=== PATIENT | female | born 1985 | race Caucasian/White ===

== ENCOUNTER 2017-07-11 17:13 | Emergency (ER) | payer SELFPAY ==
--- OUTSIDE RECORDS SUMMARY | 2017-07-11 17:15 | XMS REPORT ---
:1985 Author Organization [facility] Address Unavailable , Allergies, Adverse Reactions, Alerts Allergy Name Reaction Description Start Date Severity Status Provider No Known Allergies Gina Reed [employer] Conditions or Problems Problem Name Problem Onset Status Entry Provider Comment Standard Annotate Code Date Date Description Bacterial 616.10 Active Kim Vaginitis and vaginosis 06/10 06/10 Mony vulvovaginitis, unspecified Elevated 790.4 Active Kim Nonspecific transaminases 06/08 06/08 Mony elevation of MD levels of transaminase or lactic acid dehydrogenase [LDH] Breast lump or 611.72 Active Kim Lump or mass in mass, right 06/03 06/03 Mony breast Caries, dental 521.00 Active Kim Dental caries, 06/03 06/03 Mony unspecified Chronic low 724.2 Active Kim Lumbago back pain 06/03 06/03 Mony STONE Depression / 300.4 Active Kim Dysthymic disorder anxiety 06/03 06/03 Mony STONE GERD 530.81 Active Kim Esophageal reflux 06/03 06/03 Mony STONE Hx of 305.90 Active Kim Other, mixed, or substance 06/03 06/03 Mony unspecified drug abuse abuse, unspecified use Hypertriglycer 272.1 Active Kim Pure idemia 06/03 06/08 Mony hyperglyceridemia Insomnia 780.52 Active Kim Insomnia, 06/03 06/03 Mony unspecified Myopia, 367.1 Active Kim Myopia bilateral 06/03 06/03 Mony STONE Nausea and 787.01 Active Kim Nausea with vomiting 06/03 06/03 Mony vomiting Obesity Active Kim Obesity, 06/03 06/03 Mony unspecified Psoriasis 696.1 Active Kim Other psoriasis diffuse 06/03 06/03 Mony STONE Vitamin D 268.9 Active Kim Unspecified deficiency 06/03 06/08 Mony vitamin D MD deficiency BMI 32.0-32.9 Inactive Kim Syeks MD Health maintenance ICD-V70 Inactive Kim Sykes exam .0 MD Hx of abnormal ICD-V13 Inactive Kim Sykes 06/08 cervical .29 MD Papanicolaou smear Menorrhagia ICD-626 Inactive Kim Sykes .2 MD Screening for ICD-V77 Inactive Kim Sykes 06/08 diabetes mellitus .1 Screening for V77.91 Inactive Kim Sykes Screening for lipid disorder MD lipoid disorders Screening for TB ICD-V74.1 Inactive Kim Sykes Screening for V77.99 Inactive Kim Sykes Screening for vitamin D MD other and deficiency unspecified endocrine, nutritional, metabolic, and immunity disorders Std screening ICD-V74.5 Inactive Kim Sykes MD Vaccination ICD-V05.9 Inactive Kim Sykes MD BMI 32.0-32.9 Resolved Kim Sykes Body Mass Index 32.0-32.9, adult Health V70.0 Resolved Kim Sykes Routine general maintenance exam medical examination at a health care facility Hx of abnormal V13.2 Resolved Kim Sykes Personal history cervical 9 MD of other genital Papanicolaou system and smear obstetric disorders Menorrhagia 626.2 Resolved Kim Sykes Excessive or MD frequent menstruation Screening for V77.1 Resolved Kim Sykes Screening for diabetes mellitus diabetes mellitus Screening for TB V74.1 Resolved Kim Sykes Screening examination for pulmonary tuberculosis Std screening V74.5 Resolved Kim Sykes Screening examination for venereal disease Vaccination V05.9 Resolved Kim Sykes Need for MD prophylactic vaccination and inoculation against unspecified single disease Medication List Medication Instructions Start Stop Generic NDC Status Provider Patient Date Date Name Instruction FLAGYL 500 1 tab by METRONIDAZOLE 10575467593 Active Kim Active MG ORAL mouth twice a Mony TABLET day for 7 MD days FISH OIL 2 by mouth OMEGA-3 FATTY 40128593486 Active Kim Active 1000 MG two times a ACIDS Mony ORAL day with MD CAPSULE meals VITAMIN D2 take 1 tablet ERGOCALCIFEROL 75768934558 Active Kim Active 2000 UNIT By Mouth Mony ORAL daily MD TABLET BUSPIRONE 1 by mouth BUSPIRONE HCL 72435009675 Active Kim Active HCL 10 MG twice a day Mony ORAL MD TABLET COLACE 100 1 by mouth DOCUSATE SODIUM 01148911187 Active Kim Active MG ORAL twice a day Mony CAPSULE for MD constipation REMERON 15 1 by mouth MIRTAZAPINE 14050895252 Active Kim Active MG ORAL nightly at Mony TABLET bedtime ZANTAC 150 1 by mouth RANITIDINE HCL 81641191943 Active Kim Active MG ORAL twice a day Mony TABLET for heartburn Advance Directives Directive Description Start Date DISCUSSED - NO DECISION MADE Immunizations Vaccine Administration Date Value Standard Description Tetanus toxoid, reduced given tetanus toxoid, reduced diphtheria toxoid and diphtheria toxoid, and acellular Pertussis vaccine, acellular pertussis vaccine, absorbed (TdaP) given adsorbed Vital Signs Date Name Value Unit Range Description blood pressure, diastolic 73 mm[Hg] BP jane blood pressure, systolic 112 mm[Hg] BP sys height E&M 64 [in_us] Bdy height pulse rate E&M 92 /min Heart rate temperature E&M 98.3 [degF] Body temperature weight E&M 186 [lb_av] Weight Measured Diagnostic Results Date Name Value Unit Range Description Lab Report: CBC With Differential/Platelet, Comp. Metabolic Panel (14), ... - Serology hepatitis C antibody, serum <0.1 0.0-0.9 Office Visit: Annual / Family Planning Female - Urinalysis pH, urine, semiquantitative 8.5 Lab Report: CBC With Differential/Platelet, Comp. Metabolic Panel (14), ... - Hematology lymphocyte count, blood, automated 1.8 X10E3/UL 10*3/mm3 0.7- 3.1 Office Visit: Annual / Family Planning Female - Urinalysis bilirubin, urine 1+ Lab Report: CBC With Differential/Platelet, Comp. Metabolic Panel (14), ... - Chemistry urea nitrogen, blood 14 mg/dL 6-20 creatinine, serum 0.56 mg/dL 0.57-1.00 chloride, serum 107 mmol/L 96-106 Lab Report: CBC With Differential/Platelet, Comp. Metabolic Panel (14), ... - Hematology mean corpuscular volume, RBC 94 fL 79-97 Lab Report: Lipid Panel, Cardiovascular Report - Chemistry triglyceride, serum, fasting 215 mg/dL 0-149 Lab Report: CBC With Differential/Platelet, Comp. Metabolic Panel (14), ... - Hematology erythrocyte (RBC) count 4.30 X10E6/UL 10*6/mm3 3.77-5.28 Lab Report: CBC With Differential/Platelet, Comp. Metabolic Panel (14), ... - Chemistry Estimated Glomerular Filtration Rate (calc) 124 mL/min/1.73m2 & gt;59 Office Visit: Annual / Family Planning Female - Urinalysis appearance, urine clear Lab Report: CBC With Differential/Platelet, Comp. Metabolic Panel (14), ... - Hematology platelet count 256 X10E3/UL 10*3/mm3 258-771 3198/03/21 red blood cell distribution width 13.1 % 12.3-15.4 Lab Report: CBC With Differential/Platelet, Comp. Metabolic Panel (14), ... - Chemistry protein, total, serum 7.5 g/dL 6.0-8.5 Lab Report: Lipid Panel, Cardiovascular Report - Chemistry HDL cholesterol, serum 48 mg/dL >39 Office Visit: Annual / Family Planning Female - Urinalysis glucose, urine, semiquantitative negative Lab Report: CBC With Differential/Platelet, Comp. Metabolic Panel (14), ... - Chemistry albumin/globulin ratio, serum 1.4 1.2-2.2 Lab Report: CBC With Differential/Platelet, Comp. Metabolic Panel (14), ... - Hematology eosinophils as percent of blood leukocytes 1 % Lab Report: CBC With Differential/Platelet, Comp. Metabolic Panel (14), ... - Chemistry Absolute Neutrophils 4.5 X10E3/UL 10*3/uL 1.4-7.0 Lab Report: CBC With Differential/Platelet, Comp. Metabolic Panel (14), ... - Hematology basophil count, absolute 0.0 x10E3/uL 0.0-0.2 Lab Report: CBC With Differential/Platelet, Comp. Metabolic Panel (14), ... - Chemistry hepatitis B surface antigen Negative Negative alanine aminotransferase (SGPT), serum 59 U/L 0-32 Lab Report: Lipid Panel, Cardiovascular Report - Chemistry LDL cholesterol, serum 99 mg/dL 0-99 Office Visit: Annual / Family Planning Female - Urinalysis nitrite, urine, semiquantitative negative Lab Report: CBC With Differential/Platelet, Comp. Metabolic Panel (14), ... - Hematology monocytes as percent of blood leukocytes 7 % Lab Report: Lipid Panel, Cardiovascular Report - Chemistry cholesterol, serum 190 mg/dL 100-199 Lab Report: CBC With Differential/Platelet, Comp. Metabolic Panel (14), ... - Hematology mean corpuscular hemoglobin concentration, RBC 32.8 G/DL % 31.5- 35.7 Office Visit: Annual / Family Planning Female - Urinalysis leukocyte esterase, urine, by dipstick trace Lab Report: CBC With Differential/Platelet, Comp. Metabolic Panel (14), ... - Hematology hemoglobin, blood 13.3 g/dL 11.1-15.9 leukocyte count, blood 6.8 X10E3/UL 10*3/mm3 3.4-10.8 Quantiferon Gold TB blood test for Negative Negative tuberculosis screening Office Visit: Annual / Family Planning Female - Urinalysis protein, urine, semiquantitative (dipstick) trace Lab Report: CBC With Differential/Platelet, Comp. Metabolic Panel (14), ... - Hematology hematocrit, blood 40.5 % 34.0-46.6 Lab Report: CBC With Differential/Platelet, Comp. Metabolic Panel (14), ... - Chemistry globulin, serum 3.1 1.5-4.5 vitamin D 25-hydroxy, serum 22.5 ng/mL 30.0-100.0 thyroid stimulating hormone, serum 1.350 u[iU]/mL 0.450-4.500 albumin, serum 4.4 g/dL 3.5-5.5 Lab Report: Lipid Panel, Cardiovascular Report - Chemistry very low density lipoproteins 43 mg/dL 5-40 Office Visit: Annual / Family Planning Female - Urinalysis urobilinogen, urine, semiquantitative (dipstick) negative Lab Report: CBC With Differential/Platelet, Comp. Metabolic Panel (14), ... - Chemistry calcium, serum 9.7 mg/dL 8.7-10.2 Lab Report: CBC With Differential/Platelet, Comp. Metabolic Panel (14), ... - Hematology basophils as percent of blood leukocytes 0 % monocyte count, blood, automated 0.4 X10E3/UL 10*3/uL 0.1-0.9 Lab Report: CBC With Differential/Platelet, Comp. Metabolic Panel (14), ... - Chemistry immature granulocytes, percentage of total cells, blood 0 % urea nitrogen/creatinine ratio, serum 25 8-20 Lab Report: CBC With Differential/Platelet, Comp. Metabolic Panel (14), ... - Genetics/fertility eGFR if 143 mL/min/1.73m2 >59 Lab Report: CBC With Differential/Platelet, Comp. Metabolic Panel (14), ... - Hematology lymphocytes as percent of blood leukocytes 27 % Lab Report: CBC With Differential/Platelet, Comp. Metabolic Panel (14), ... - Chemistry carbon dioxide, venous blood 23 mmol/L 18-29 Lab Report: CBC With Differential/Platelet, Comp. Metabolic Panel (14), ... - Serology rapid plasma reagin antibody, serum Non Reactive Non Reactive Lab Report: Ct, Ng, Trich vag by AIDEN - Lab chlamydia DNA probe Negative Negative Lab Report: Ct, Ng, Trich vag by AIDEN - Microbiology Neisseria gonorrhoeae DNA probe Negative Negative Lab Report: CBC With Differential/Platelet, Comp. Metabolic Panel (14), ... - Chemistry sodium, serum 145 mmol/L 952-957 1674/03/21 hemoglobin A1C, blood, as % of total hemoglobin 5.3 % 4.8-5.6 Office Visit: Annual / Family Planning Female - Chemistry beta HCG, urine, semiquantitative negative Lab Report: CBC With Differential/Platelet, Comp. Metabolic Panel (14), ... - Chemistry alkaline phosphatase, serum 79 U/L 39-117 Office Visit: Annual / Family Planning Female - Urinalysis ketones, urine, by test strip negative Lab Report: CBC With Differential/Platelet, Comp. Metabolic Panel (14), ... - Hematology Eosinophil Absolute Count 0.1 X10E3/UL 10*3/uL 0.0-0.4 Office Visit: Annual / Family Planning Female - Urinalysis specific gravity, urine 1.010 Lab Report: CBC With Differential/Platelet, Comp. Metabolic Panel (14), ... - Hematology mean corpuscular hemoglobin, RBC 30.9 pg 26.6-33.0 Lab Report: CBC With Differential/Platelet, Comp. Metabolic Panel (14), ... - Chemistry bilirubin, serum, total 0.3 mg/dL 0.0-1.2 Lab Report: CBC With Differential/Platelet, Comp. Metabolic Panel (14), ... - Hematology neutrophils as percent of blood leukocytes 65 % Office Visit: Annual / Family Planning Female - Urinalysis blood in urine (hemoglobin) by dipstick negative Lab Report: CBC With Differential/Platelet, Comp. Metabolic Panel (14), ... - Chemistry potassium, serum 4.6 mmol/L 3.5-5.2 blood glucose, random 81 mg/dL 65-99 aspartate aminotransferase (SGOT), serum 63 U/L 0-40 Office Visit: Annual / Family Planning Female - Urinalysis urine color yellow Encounters Date Encounter Provider Code Facility New Patient Detailed - Kim Sykes MD [id number] [facility] 13:14:00 CDT 29078 Practice Procedures Code Procedure Name Date Entry Date Standard Description CPT-HE001 Health Education/Supportive 11:41:37 FISH TRAPPER Counseling CPT-HE001 Health Education/Supportive 10:01:26 FISH TRAPPER Counseling CPT-OR001 Outreach Services 12:16:34 CDT CPT-40800 TDAP 13:07:50 CDT
--- NOTE | 2017-07-11 18:28 | ER ---
Nurse's Notes [facility] Name: Renée Keita Age: 31 yrs Sex: Female : 1985 Arrival Date: 07/11/2017 Time: 17:16 Bed Treatment Private MD: None, None Diagnosis: Psoriasis, unspecified;Irritant contact dermatitis;Cellulitis, unspecified Presentation: 07/11 17:30 Presenting complaint: Patient states: Rash to RAC, chest. Pt airway patent, la1 respirations even and unlabored. Transition of care: patient was not received from another setting of care. Onset of symptoms was July 11, 2017. Initial Sepsis Screen: Does the patient meet any 2 criteria? No. Patient's initial sepsis screen is negative. Does the patient have a suspected source of infection? No. Patient's initial sepsis screen is negative. Care prior to arrival: None. 17:30 Method Of Arrival: Ambulatory la1 17:30 Acuity: KAMILA 5 la1 Triage Assessment: 17:44 General: Appears in no apparent distress. Behavior is calm, cooperative. la1 Historical: - Allergies: 17:31 No Known Allergies; la1 - PMHx: 17:31 None; la1 - Immunization history:: Adult Immunizations up to date. - Social history:: Smoking status: Patient/guardian denies using tobacco. Screenin:44 Abuse screen: Denies threats or abuse. Nutritional screening: No deficits noted. la1 Tuberculosis screening: No symptoms or risk factors identified. Fall Risk None identified. Assessment: 17:43 Reassessment: Patient is alert, oriented x 3, equal unlabored respirations, skin la1 warm/dry/pink. Pain: Denies pain. Respiratory: Airway is patent Respiratory effort is even, unlabored, Respiratory pattern is regular, symmetrical. GI: No signs and/or symptoms were reported involving the gastrointestinal system. Derm: Rash noted that is red, on right antecubital area. Vital Signs: 17:31 BP 115 / 65; Pulse 76; Resp 19; Temp 98.2; Pulse Ox 100% on R/A; Weight 90.72 kg; la1 Height 5 ft. 4 in. (162.56 cm) (R); 17:31 Body Mass Index 34.33 (90.72 kg, 162.56 cm) la1 ED Course: 17:16 Patient arrived in ED. mr 17:16 None, None is Private Physician. mr 17:31 Triage completed. la1 17:31 Arm band placed on left wrist. la1 17:43 Brant Luu, RN is Primary Nurse. la1 17:43 Dariel[facility]. snw 17:43 Sergey Daniels MD is Attending Physician. snw 17:44 Call light in reach. la1 17:44 No provider procedures requiring assistance completed. Patient did not have IV access la1 during this emergency room visit. Administered Medications: 18:33 Drug: Clindamycin 300 mg Route: PO; la1 18:33 Follow up: Response: Medication administered at discharge. la1 Outcome: 18:27 Discharge ordered by . snw 18:42 Discharged to home ambulatory. la1 18:42 Condition: stable 18:42 Discharge instructions given to patient, Instructed on discharge instructions, follow up and referral plans. medication usage, Demonstrated understanding of instructions, follow-up care, medications, Prescriptions given X 2. 18:43 Patient left the ED. la1 Signatures: Dariela Winston FNP-C EARLY CHILDHOOD TEACHER ASSISTANT-[facility] Milly Jones Brant Luu, RN RN la1
--- NOTE | 2017-07-11 18:28 | EDPHYS ---
Physician Documentation [facility] Name: Renée Keita Age: 31 yrs Sex: Female : 1985 Arrival Date: 07/11/2017 Time: 17:16 Bed Treatment Private MD: None, None ED Physician Sergey Daniels HPI: 07/11 18:55 This 31 yrs old Female presents to ER via Ambulatory with complaints of Rash. snw 18:55 The patient's rash thought to be caused by Dermatitis. The rash is located on the right snw antecubital area. The rash can be described as confluent, erythematous, raised. Onset: The symptoms/episode began/occurred suddenly, 2 day(s) ago, and became persistent spreading. Severity of symptoms: At their worst the symptoms were moderate. The patient has not experienced similar symptoms in the past. It is unknown whether or not the patient has recently seen a physician. hx of psoriasis, uses only baby lotion. Historical: - Allergies: 17:31 No Known Allergies; la1 - PMHx: 17:31 None; la1 - Immunization history:: Adult Immunizations up to date. - Social history:: Smoking status: Patient/guardian denies using tobacco. ROS: 18:55 Constitutional: Negative for fever, chills, and weight loss, Eyes: Negative for injury, snw pain, redness, and discharge, ENT: Negative for injury, pain, and discharge, Neck: Negative for injury, pain, and swelling, Cardiovascular: Negative for chest pain, palpitations, and edema, Respiratory: Negative for shortness of breath, cough, wheezing, and pleuritic chest pain, Abdomen/GI: Negative for abdominal pain, nausea, vomiting, diarrhea, and constipation, Back: Negative for injury and pain, : Negative for injury, bleeding, discharge, and swelling, MS/Extremity: Negative for injury and deformity, Neuro: Negative for headache, weakness, numbness, tingling, and seizure. 18:55 Skin: Positive for rash, of the right antecubital area. Exam: 18:24 Constitutional: This is a well developed, well nourished patient who is awake, alert, snw and in no acute distress. Head/Face: Normocephalic, atraumatic. Eyes: Pupils equal round and reactive to light, extra-ocular motions intact. Lids and lashes normal. Conjunctiva and sclera are non-icteric and not injected. Cornea within normal limits. Periorbital areas with no swelling, redness, or edema. ENT: Nares patent. No nasal discharge, no septal abnormalities noted. Tympanic membranes are normal and external auditory canals are clear. Oropharynx with no redness, swelling, or masses, exudates, or evidence of obstruction, uvula midline. Mucous membranes moist. Neck: Trachea midline, no thyromegaly or masses palpated, and no cervical lymphadenopathy. Supple, full range of motion without nuchal rigidity, or vertebral point tenderness. No Meningismus. Chest/axilla: Normal chest wall appearance and motion. Nontender with no deformity. No lesions are appreciated. Cardiovascular: Regular rate and rhythm with a normal S1 and S2. No gallops, murmurs, or rubs. Normal PMI, no JVD. No pulse deficits. Respiratory: Lungs have equal breath sounds bilaterally, clear to auscultation and percussion. No rales, rhonchi or wheezes noted. No increased work of breathing, no retractions or nasal flaring. Abdomen/GI: Soft, non-tender, with normal bowel sounds. No distension or tympany. No guarding or rebound. No evidence of tenderness throughout. Back: No spinal tenderness. No costovertebral tenderness. Full range of motion. MS/ Extremity: Pulses equal, no cyanosis. Neurovascular intact. Full, normal range of motion. Neuro: Awake and alert, GCS 15, oriented to person, place, time, and situation. Cranial nerves II-XII grossly intact. Motor strength 5/5 in all extremities. Sensory grossly intact. Cerebellar exam normal. Normal gait. 18:24 Skin: Appearance: psoriasis diffusely, erythematous cellulitic area to right ac space. Vital Signs: 17:31 BP 115 / 65; Pulse 76; Resp 19; Temp 98.2; Pulse Ox 100% on R/A; Weight 90.72 kg; la1 Height 5 ft. 4 in. (162.56 cm) (R); 17:31 Body Mass Index 34.33 (90.72 kg, 162.56 cm) la1 MDM: 17:51 Patient medically screened. [facility] 18:54 Data reviewed: vital signs, nurses notes. Data interpreted: Pulse oximetry: on room air snw is 100 %. Interpretation: normal. Counseling: I had a detailed discussion with the patient and/or guardian regarding: the historical points, exam findings, and any diagnostic results supporting the discharge/admit diagnosis, the need for outpatient follow up, to return to the emergency department if symptoms worsen or persist or if there are any questions or concerns that arise at home. Special discussion: Based on the history and exam findings, there is no indication for further emergent testing or inpatient evaluation. I discussed with the patient/guardian the need to see the broth setter for further evaluation of the symptoms. I discussed with the patient/guardian the need to see the primary care provider for further evaluation of the symptoms. Administered Medications: 18:33 Drug: Clindamycin 300 mg Route: PO; la1 18:33 Follow up: Response: Medication administered at discharge. la1 Disposition: 07/11/17 18:27 Discharged to Home. Impression: Psoriasis, unspecified, Irritant contact dermatitis, Cellulitis, unspecified. - Condition is Stable. - Discharge Instructions: Cellulitis, Contact Dermatitis, Psoriasis. - Prescriptions for Aquaphor - Apply to affected area 1 application by TOPICAL route 1-2 times daily; 50 gram. Clindamycin HCl 300 mg Oral Capsule - take 1 capsule by ORAL route every 8 hours for 10 days; 30 capsule. - Work release form, Medication Reconciliation Form, Thank You Letter, Antibiotic Education, Prescription Opioid Use form. - Follow up: Private Physician; When: 2 - 3 days; Reason: Recheck today's complaints, Continuance of care, Re-evaluation by your physician. Addendum: 07/13/2017 09:08 Co-signature as Attending Physician, Sergey Daniels MD I agree with the assessment and c lara plan of care. Signatures: Sergey Daniels MD MD cha Therrien, Shelly, CELL COVERER-C CELL COVERER-[facility] Brant Luu, RN RN la1
[2017-07-11] MEDS ORDERED: CLINDAMYCIN HCL 150 MG CAP ONE (18:31)
[2017-07-11 18:46] VITALS: BP 115/65; TEMP 98.2; O2SAT 100
== END 2017-07-11 18:43 | disposition home or self-care (01) ==
LOC: ER 17:13
DX: L40.9 Psoriasis, unspecified (principal); L24.9 Irritant contact dermatitis, unspecified cause; L03.90 Cellulitis, unspecified
CPT/HCPCS: 99283

== ENCOUNTER 2018-08-13 21:45 | Emergency (ER) | payer SELFPAY ==
--- OUTSIDE RECORDS SUMMARY | 2018-08-13 21:47 | XMS REPORT ---
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 Conditions or Problems Problem Name Problem Onset [...] D MD deficiency BMI 32.0-32.9 Inactive Kim Sykes MD Health maintenance ICD-V70 Inactive Kim Sykes [...] Instruction FLAGYL 500 1 tab by METRONIDAZOLE 05467599822 Active Kim Active MG ORAL mouth twice a Mony TABLET day for 7 MD days FISH OIL 2 by mouth OMEGA-3 FATTY 31256225489 Active Kim Active 1000 MG two times a ACIDS Mony ORAL day with MD CAPSULE meals VITAMIN D2 take 1 tablet ERGOCALCIFEROL 08586981999 Active Kim Active 2000 UNIT By Mouth Mony ORAL daily MD TABLET BUSPIRONE 1 by mouth BUSPIRONE HCL 29751562681 Active Kim Active HCL 10 MG twice a day Mony ORAL MD TABLET COLACE 100 1 by mouth DOCUSATE SODIUM 50650172938 Active Kim Active MG ORAL twice a day Mony CAPSULE for MD constipation REMERON 15 1 by mouth MIRTAZAPINE 36445688496 Active Kim Active MG ORAL nightly at Mony TABLET bedtime ZANTAC 150 1 by mouth RANITIDINE HCL 61911111529 Active Kim Active MG ORAL twice a [...] Estimated Glomerular Filtration Rate (calc) 124 mL/min/1.73m2 > 59 Office Visit: Annual / Family Planning Female - Urinalysis appearance, urine clear Lab Report: CBC With Differential/Platelet, Comp. Metabolic Panel (14), ... - Hematology platelet count 256 X10E3/UL 10*3/mm3 967-393 7441/03/21 red blood cell distribution width 13.1 % [...] ... - Chemistry sodium, serum 145 mmol/L 584-620 0761/03/21 hemoglobin A1C, blood, as % of total [...] New Patient Detailed - Kim Sykes MD CPT-18596 [facility] 13:14:00 CDT 38942 Practice Procedures Code Procedure Name Date Entry Date Standard Description CPT-HE001 Health Education/Supportive 11:41:37 PARIMUTUEL CASHIER Counseling CPT-HE001 Health Education/Supportive 10:01:26 PARIMUTUEL CASHIER Counseling CPT-OR001 Outreach Services 12:16:34 CDT CPT-86349 TDAP 13:07:50 CDT
--- OUTSIDE RECORDS SUMMARY | 2018-08-13 21:47 | XMS REPORT ---
:1985 [facility] Address [address] [place] [address] Dr. Goldstein[address] [place] [id number] Care Team Providers Name Role Phone Unavailable Unavailable Unavailable Problems This patient has no known problems. Allergies, Adverse Reactions, Alerts This patient has no known allergies or adverse reactions. Medications This patient has no known medications.
--- OUTSIDE RECORDS SUMMARY | 2018-08-13 21:47 | XMS REPORT | Continuity of Care Document ---
:1985 Author Organization Interface Problems Problem Status Onset Date Classification Date Comments Source Reported Medications Medication Details Route Status Patient Ordering Order Source Instructions Provider Date Allergies, Adverse Reactions, Alerts Substance Category Reaction Severity Reaction Status Date Comments Source type Reported Immunizations Immunization Date Given Site Status Last Updated Comments Source Results Order Results Value Reference Date Interpretation Comments Source Name Range Vital Signs Vital Sign Value Date Comments Source Encounters Location Location Encounter Encounter Reason Attending ADM DC Status Source Details Type Number For Provider Date Date Visit Outpatient [id number] KELLI 04/14 [facility] Procedures Procedure Code Date Perfomer Comments Source
--- NOTE | 2018-08-13 23:03 | ER ---
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 its not hurting that much right now. pain is intermittent. Transition of care: patient was not received from another setting of care. Onset of symptoms was August 11, 2018. Risk Assessment: Do you want to hurt yourself or someone else? Patient reports no desire to harm self or others. Initial Sepsis Screen: Does the patient meet any 2 criteria? No. Patient's initial sepsis screen is negative. Does the patient have a suspected source of infection? No. Patient's initial sepsis screen is negative. Care prior to arrival: None. 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 - Social history:: Smoking status: Patient/guardian denies using tobacco, Patient/guardian denies using alcohol, street drugs, IV drugs. - Ebola Screening: : No symptoms or risks identified at this time. Screenin:26 Abuse screen: Denies threats or abuse. Denies injuries from another. Nutritional mg2 screening: No deficits noted. Tuberculosis screening: No symptoms or risk factors identified. Fall Risk Fall in past 12 months (25 points). Assessment: 23:25 General: Appears in no apparent distress. comfortable, Behavior is calm, cooperative. mg2 Pain: Complains of pain in right knee Pain does not radiate. Neuro: Level of Consciousness is awake, alert, obeys commands, Oriented to person, place, time, situation. Cardiovascular: Capillary refill < 3 seconds Patient's skin is warm and dry. Respiratory: Airway is patent Respiratory effort is even, unlabored, Respiratory pattern is regular, symmetrical. GI: No signs and/or symptoms were reported involving the gastrointestinal system. : No signs and/or symptoms were reported regarding the genitourinary system. EENT: No signs and/or symptoms were reported regarding the EENT system. Derm: Skin is intact, is healthy with good turgor, Skin is pink, warm \T\ dry. normal. Musculoskeletal: Reports pain in right knee. Vital Signs: 22:17 BP 116 / 79; Pulse 80; Resp 18; Temp 98.4; Pulse Ox 100% on R/A; Weight 90.72 kg; mg2 Height 5 ft. 4 in. (162.56 cm); Pain 1/10; 23:26 BP 117 / 71; Pulse 80; Resp 18; Temp 98.5; Pulse Ox 100% on R/A; Pain 0/10; mg2 22:17 Body Mass Index 34.33 (90.72 kg, 162.56 cm) mg2 ED Course: 21:49 Patient arrived in ED. ds1 22:05 [facility]iel[facility] Winston [facility]C [facility] snw 22:05 Ishan Tejeda MD is Attending Physician. snw 22:10 Travon Barrett, EVANGELINA is Primary Nurse. mg2 22:17 Triage completed. mg2 22:19 Arm band placed on. mg2 22:49 Knee Right 3 View XRAY In Process Unspecified. EDMS 23:27 Patient has correct armband on for positive identification. mg2 23:27 No provider procedures requiring assistance completed. Patient did not have IV access mg2 during this emergency room visit. 23:27 Jono wrap to right knee. mg2 Administered Medications: No medications were administered Outcome: 23:02 Discharge ordered by . snw 23:27 Discharged to home ambulatory. mg2 23:27 Condition: stable 23:27 Discharge instructions given to patient, Instructed on discharge instructions, follow up and referral plans. Demonstrated understanding of instructions, follow-up care, medications, Prescriptions given X 1. 23:28 Patient left the ED. mg2 Signatures: Dispatcher [employer] EDMS Dariela Winston FNP-C DIESEL RETROFIT INSTALLER-Csnw Ida Maldonado ds1 Travon Barrett, RN RN mg2
--- NOTE | 2018-08-13 23:03 | EDPHYS ---
Physician Documentation [facility] Name: Renée Keita Age: 32 yrs Sex: Female : 1985 Arrival Date: 08/13/2018 Time: 21:49 Bed 30 Private MD: ED Physician Ishan Tejeda HPI: 08/13 23:07 This 32 yrs old Female presents to ER via Ambulatory with complaints of Knee snw Pain. 23:07 The patient presents with a contusion, pain. The complaints affect the right knee. snw Context: The problem was sustained at work, resulted from slipped in grease at work, the patient can fully bear weight, the patient is able to ambulate. Onset: The symptoms/episode began/occurred suddenly, 3 day(s) ago, and became persistent. Associated signs and symptoms: The patient has no apparent associated signs or symptoms. Severity of symptoms: At their worst the symptoms were mild, moderate. The patient has not experienced similar symptoms in the past. It is unknown whether or not the patient has recently seen a physician. 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 - Social history:: Smoking status: Patient/guardian denies using tobacco, Patient/guardian denies using alcohol, street drugs, IV drugs. - Ebola Screening: : No symptoms or risks identified at this time. ROS: 23:00 Constitutional: Negative for fever, chills, and weight loss, Eyes: Negative for injury, snw pain, redness, and discharge, ENT: Negative for injury, pain, and discharge, Neck: Negative for injury, pain, and swelling, Cardiovascular: Negative for chest pain, palpitations, and edema, Respiratory: Negative for shortness of breath, cough, wheezing, and pleuritic chest pain, Abdomen/GI: Negative for abdominal pain, nausea, vomiting, diarrhea, and constipation, Back: Negative for injury and pain, : Negative for injury, bleeding, discharge, and swelling, MS/Extremity: Negative for injury and deformity, fell to right knee at work and needs to be checked prior to return Skin: Negative for injury, rash, and discoloration, Neuro: Negative for headache, weakness, numbness, tingling, and seizure. Exam: 22:58 Constitutional: This is a well developed, well nourished patient who is awake, alert, snw and in no acute distress. Head/Face: Normocephalic, atraumatic. Eyes: Pupils equal round and reactive to light, extra-ocular motions intact. Lids and lashes normal. Conjunctiva and sclera are non-icteric and not injected. Cornea within normal limits. Periorbital areas with no swelling, redness, or edema. ENT: Nares patent. No nasal discharge, no septal abnormalities noted. Tympanic membranes are normal and external auditory canals are clear. Oropharynx with no redness, swelling, or masses, exudates, or evidence of obstruction, uvula midline. Mucous membranes moist. Neck: Trachea midline, no thyromegaly or masses palpated, and no cervical lymphadenopathy. Supple, full range of motion without nuchal rigidity, or vertebral point tenderness. No Meningismus. Chest/axilla: Normal chest wall appearance and motion. Nontender with no deformity. No lesions are appreciated. Cardiovascular: Regular rate and rhythm with a normal S1 and S2. No gallops, murmurs, or rubs. Normal PMI, no JVD. No pulse deficits. Respiratory: Lungs have equal breath sounds bilaterally, clear to auscultation and percussion. No rales, rhonchi or wheezes noted. No increased work of breathing, no retractions or nasal flaring. Abdomen/GI: Soft, non-tender, with normal bowel sounds. No distension or tympany. No guarding or rebound. No evidence of tenderness throughout. Back: No spinal tenderness. No costovertebral tenderness. Full range of motion. Skin: Warm, dry with normal turgor. Normal color with no rashes, no lesions, and no evidence of cellulitis. Neuro: Awake and alert, GCS 15, oriented to person, place, time, and situation. Cranial nerves II-XII grossly intact. Motor strength 5/5 in all extremities. Sensory grossly intact. Cerebellar exam normal. Normal gait. Psych: Awake, alert, with orientation to person, place and time. Behavior, mood, and affect are within normal limits. 22:58 Skin: Warm, dry with normal turgor. Normal color with no rashes, + psoriasis, and no evidence of cellulitis. 22:58 Musculoskeletal/extremity: Extremities: grossly normal except: noted in the right knee: contusion, tenderness. Vital Signs: 22:17 BP 116 / 79; Pulse 80; Resp 18; Temp 98.4; Pulse Ox 100% on R/A; Weight 90.72 kg; mg2 Height 5 ft. 4 in. (162.56 cm); Pain 1/10; 23:26 BP 117 / 71; Pulse 80; Resp 18; Temp 98.5; Pulse Ox 100% on R/A; Pain 0/10; mg2 22:17 Body Mass Index 34.33 (90.72 kg, 162.56 cm) mg2 MDM: 22:17 Patient medically screened. snw 23:07 Data reviewed: vital signs, nurses notes. Data interpreted: Pulse oximetry: on room air snw is 100 %. Interpretation: normal. Counseling: I had a detailed discussion with the patient and/or guardian regarding: the historical points, exam findings, and any diagnostic results supporting the discharge/admit diagnosis, radiology results, the need for outpatient follow up, to return to the emergency department if symptoms worsen or persist or if there are any questions or concerns that arise at home. Special discussion: Based on the history and exam findings, there is no indication for further emergent testing or inpatient evaluation. I discussed with the patient/guardian the need to see the primary care provider for further evaluation of the symptoms. 08/13 22:22 Order name: Knee Right 3 View XRAY snw 08/13 23:07 Order name: Jono wrap-joint; Complete Time: 23:25 snw Administered Medications: No medications were administered Disposition: 08/13/18 23:02 Discharged to Home. Impression: Fall on same level from slipping, tripping and stumbling, Contusion of right knee. - Condition is Stable. - Discharge Instructions: Elastic Bandage and RICE, Contusion, Fall Prevention in the Home, RICE for Routine Care of Injuries, Knee Pain, Cryotherapy. - Prescriptions for Motrin IB 200 mg Oral Tablet - take 2 tablet by ORAL route every 6 hours As needed as needed with food; 40 tablet. - Work release form, Medication Reconciliation Form, Thank You Letter, Antibiotic Education, Prescription Opioid Use form. - Follow up: Private Physician; When: 2 - 3 days; Reason: Recheck today's complaints, Continuance of care, Re-evaluation by your physician. Follow up: Emergency Department; When: As needed; Reason: Worsening of condition. Signatures: Dispatcher [employer] EDMS Dariela Winston, DANNY-C LIGHT CLEANER-Csnw Travon Barrett RN RN mg2 Corrections: (The following items were deleted from the chart) 23:28 23:02 08/13/2018 23:02 Discharged to Home. Impression: Fall on same level from mg2 slipping, tripping and stumbling; Contusion of right knee. Condition is Stable. Forms are Medication Reconciliation Form, Thank You Letter, Antibiotic Education, Prescription Opioid Use. Follow up: Private Physician; When: 2 - 3 days; Reason: Recheck today's complaints, Continuance of care, Re-evaluation by your physician. Follow up: Emergency Department; When: As needed; Reason: Worsening of condition. snw
[2018-08-14 00:45] VITALS: O2SAT 100
[2018-08-14 00:46] VITALS: BP 117/71; TEMP 98.5
--- NOTE | 2018-08-14 11:24 | RAD REPORT ---
EXAM DESCRIPTION: RAD - Knee Right 3 View - 08/13/2018 10:47 pm CLINICAL HISTORY: PAIN COMPARISON: No comparisons FINDINGS: No fracture or dislocation seen.
== END 2018-08-13 23:28 | disposition home or self-care (01) ==
LOC: ER 21:45
DX: S80.01XA Contusion of right knee, initial encounter (principal); W01.0XXA Fall on same level from slipping, tripping and stumbling without subsequent striking against object, initial encounter; Y93.89 Activity, other specified; Y92.89 Other specified places as the place of occurrence of the external cause; Y99.8 Other external cause status
CPT/HCPCS: 99283

== ENCOUNTER 2019-02-23 15:27 | Emergency (ER) | payer SELFPAY ==
--- OUTSIDE RECORDS SUMMARY | 2019-02-23 15:32 | XMS REPORT ---
:1985 [facility] [address] [place] [address] Dr. Vines [address] [place] [id number] Care Team Providers Name Role Phone Unavailable Unavailable Unavailable Problems This patient has no known problems. Allergies, Adverse Reactions, Alerts This patient has no known allergies or adverse reactions. Medications This patient has no known medications.
--- OUTSIDE RECORDS SUMMARY | 2019-02-23 15:32 | XMS REPORT ---
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 Conditions or Problems Problem Name Problem Onset [...] vitamin D MD deficiency BMI 32.0-32.9 Inactive iKm Sykes MD Health maintenance ICD-V70 Inactive Kim [...] Instruction FLAGYL 500 1 tab by METRONIDAZOLE [id number] Active Kim Active MG ORAL mouth twice a Mony TABLET day for 7 MD days FISH OIL 2 by mouth OMEGA-3 FATTY 14284080404 Active Kim Active 1000 MG two times a ACIDS Mony ORAL day with MD CAPSULE meals VITAMIN D2 take 1 tablet ERGOCALCIFEROL 36191097922 Active Kim Active 2000 UNIT By Mouth Mony ORAL daily MD TABLET BUSPIRONE 1 by mouth BUSPIRONE HCL 59590164570 Active Kim Active HCL 10 MG twice a day Mony ORAL MD TABLET COLACE 100 1 by mouth DOCUSATE SODIUM 27684566297 Active Kim Active MG ORAL twice a day Mony CAPSULE for MD constipation REMERON 15 1 by mouth MIRTAZAPINE 72954505015 Active Kim Active MG ORAL nightly at Mony TABLET bedtime ZANTAC 150 1 by mouth RANITIDINE HCL 45575433446 Active Kim Active MG ORAL twice a [...] - Hematology platelet count 256 X10E3/UL 10*3/mm3 184-956 7475/03/21 red blood cell distribution width 13.1 % [...] ... - Chemistry sodium, serum 145 mmol/L 089-667 5357/03/21 hemoglobin A1C, blood, as % of total [...] New Patient Detailed - Kim Sykes MD CPT-63860 [facility] 13:14:00 CDT 79754 Practice Procedures Code Procedure Name Date Entry Date Standard Description CPT-HE001 Health Education/Supportive 11:41:37 BARREL MARKER Counseling CPT-HE001 Health Education/Supportive 10:01:26 BARREL MARKER Counseling CPT-OR001 Outreach Services 12:16:34 CDT CPT-97703 TDAP 13:07:50 CDT
[2019-02-23] MEDS ORDERED: BENZONATATE 100 MG CAP PO ONE (15:58)
--- NOTE | 2019-02-23 16:01 | EDPHYS ---
Physician Documentation [facility] Name: Renée Keita Age: 33 yrs Sex: Female : 1985 Arrival Date: 02/23/2019 Time: 15:34 Bed 24 Private MD: ED Physician Mikhail Sánchez HPI: 02/23 15:52 This 33 yrs old Female presents to ER via Ambulatory with complaints of cough.la1 15:52 The patient or guardian reports cough, that is constant, described as mild, with la1 productive sputum, flu symptoms. Onset: The symptoms/episode began/occurred 4 day(s) ago. Modifying factors: The symptoms are alleviated by nothing. the symptoms are aggravated by nothing. Associated signs and symptoms: Pertinent positives: rhinorrhea, sore throat. Severity of symptoms: At their worst the symptoms were moderate in the emergency department the symptoms are unchanged. The patient has not experienced similar symptoms in the past. The patient has not recently seen a physician. Pt reports 2 days of persistent cough with sputum production, denies fevers, had on episode of post-tussive emesis. Has not taken any meds OTC. . 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 - Social history:: Smoking status: Patient/guardian denies using tobacco. - Ebola Screening: : No symptoms or risks identified at this time. ROS: 15:54 Constitutional: Negative for fever, chills, and weight loss, Eyes: Negative for injury, la1 pain, redness, and discharge, ENT: + sore throat Neck: Negative for injury, pain, and swelling, Cardiovascular: Negative for chest pain, palpitations, and edema, Respiratory: + cough Abdomen/GI: Negative for abdominal pain, nausea, vomiting, diarrhea, and constipation, Back: Negative for injury and pain, Skin: Chronic rash over face, ears, body Neuro: Negative for headache, weakness, numbness, tingling, and seizure, Psych: Negative for depression, anxiety, suicide ideation, homicidal ideation, and hallucinations. Exam: 15:55 Constitutional: This is a well developed, well nourished patient who is awake, alert, la1 and in no acute distress. Head/Face: Normocephalic, atraumatic. Eyes: Pupils equal round and reactive to light, extra-ocular motions intact. . Periorbital areas with no swelling, redness, or edema. 15:55 Neck: Trachea midline, no thyromegaly or masses palpated, and no cervical lymphadenopathy. Supple, full range of motion without nuchal rigidity, or vertebral point tenderness. No Meningismus. Chest/axilla: Normal chest wall appearance and motion. Nontender with no deformity. No lesions are appreciated. Cardiovascular: Regular rate and rhythm with a normal S1 and S2. No gallops, murmurs, or rubs. Normal PMI, no JVD. No pulse deficits. Respiratory: Lungs have equal breath sounds bilaterally, clear to auscultation No rales, rhonchi or wheezes noted. No increased work of breathing, no retractions or nasal flaring. Abdomen/GI: Soft, non-tender, with normal bowel sounds. No distension or tympany. No guarding or rebound. No evidence of tenderness throughout. Back: No spinal tenderness. No costovertebral tenderness. Full range of motion. Neuro: Awake and alert, GCS 15, oriented to person, place, time, and situation. Normal gait. 15:55 ENT: External ear(s): are unremarkable, TM's: are normal, Nose: External nose: no obvious acute abnormality, Nasal septum: is midline, Nasal mucosa: erythematous, Turbinates: are swollen bilaterally, Mouth: is normal, Posterior pharynx: Tonsils: are normal in appearance, Uvula: normal, midline, swelling, is not appreciated, erythema, that is mild, Voice: is normal. Vital Signs: 15:38 BP 116 / 83; Pulse 81; Resp 16; Temp 97.8; Pulse Ox 100% on R/A; Weight 90.72 kg; hb Height 5 ft. 4 in. (162.56 cm); Pain 4/10; 16:18 BP 120 / 78; Pulse 80; Resp 18; Temp 97.8; Pulse Ox 100% on R/A; mg2 15:38 Body Mass Index 34.33 (90.72 kg, 162.56 cm) hb MDM: 15:39 Patient medically screened. la1 15:58 Differential diagnosis: obstructed airway, bronchitis, flu, URI, PNE. Antibiotic la1 administration: Immune suppressed pt. Data reviewed: vital signs, nurses notes, I have discussed the patient's presentation/case with the attending Emergency Department Physician; and as a result, I will discharge patient. Data interpreted:. Test interpretation: by ED physician or midlevel provider: none. Counseling: I had a detailed discussion with the patient and/or guardian regarding: the historical points, exam findings, and any diagnostic results supporting the discharge/admit diagnosis, the need for outpatient follow up, a family practitioner. ED course: Pt on otezla for chronic plaque psoriasis, will place on zithromax due since she is immune suppressed. No fever at this time. Administered Medications: 16:00 Drug: Tessalon Perle 200 mg Route: PO; mg2 16:18 Follow up: Response: No adverse reaction mg2 Disposition: 02/24 07:17 Co-signature as Attending Physician, Mikhail Sánchez MD I agree with the assessment and kdr plan of care. Disposition: 02/23/19 16:00 Discharged to Home. Impression: Cough, Bronchitis, not specified as acute or chronic. - Condition is Stable. - Discharge Instructions: Allergies, Adult, Upper Respiratory Infection, Adult, Cough, Adult. - Prescriptions for Tessalon Perles 100 mg Oral Capsule - take 1 capsule by ORAL route every 8 hours As needed; 15 capsule. Zithromax Z- Tacho 250 mg Oral Tablet - take 1 tablet by ORAL route as directed for 5 days Day 1 - take two (2) tablets one time. Day 2, 3, 4 , 5 take one (1) tablet once daily.; 6 tablet. Albuterol Sulfate 90 mcg/actuation - inhale 1-2 puff by INHALATION route every 4-6 hours; 1 Inhaler. - Work release form, Medication Reconciliation Form, Thank You Letter, Antibiotic Education form. - Follow up: Private Physician; When: 2 - 3 days; Reason: Recheck today's complaints, Re-evaluation by your physician. Follow up: Emergency Department; When: As needed; Reason: Trouble breathing, Worsening of condition. - Problem is new. - Symptoms are unchanged. Signatures: Mikhail Sánchez MD MD kdr Attema, Lee, FNP-C DIABETES EDUCATOR-Cla1 Dena Porras, RN RN Travon Barrett, RN RN mg2 Corrections: (The following items were deleted from the chart) 02/23 16:19 16:00 02/23/2019 16:00 Discharged to Home. Impression: Cough; Bronchitis, not specified mg2 as acute or chronic. Condition is Stable. Forms are Medication Reconciliation Form, Thank You Letter, Antibiotic Education, Prescription Opioid Use. Follow up: Private Physician; When: 2 - 3 days; Reason: Recheck today's complaints, Re-evaluation by your physician. Follow up: Emergency Department; When: As needed; Reason: Trouble breathing, Worsening of condition. Problem is new. Symptoms are unchanged. la1
--- NOTE | 2019-02-23 16:01 | ER ---
Nurse's Notes [facility] Name: Renée Keita Age: 33 yrs Sex: Female : 1985 Arrival Date: 02/23/2019 Time: 15:34 Bed 24 Private MD: Diagnosis: Cough;Bronchitis, not specified as acute or chronic Presentation: 02/23 15:37 Presenting complaint: Cough, SOB, headache, abdominal cramping, and N/D x 2 days. hb Transition of care: patient was not received from another setting of care. Onset of symptoms was February 22, 2019. Risk Assessment: Do you want to hurt yourself or someone else? Patient reports no desire to harm self or others. Initial Sepsis Screen: Does the patient meet any 2 criteria? No. Patient's initial sepsis screen is negative. Does the patient have a suspected source of infection? No. Patient's initial sepsis screen is negative. Care prior to arrival: None. 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 - Social history:: Smoking status: Patient/guardian denies using tobacco. - Ebola Screening: : No symptoms or risks identified at this time. Screenin:17 Abuse screen: Denies threats or abuse. Denies injuries from another. Nutritional mg2 screening: No deficits noted. Tuberculosis screening: No symptoms or risk factors identified. Fall Risk None identified. Assessment: 16:16 General: Appears in no apparent distress. comfortable, Behavior is calm, cooperative. mg2 Pain: Complains of pain in abdomen. Neuro: Level of Consciousness is awake, alert, obeys commands, Oriented to person, place, time, situation. Cardiovascular: Capillary refill < 3 seconds Patient's skin is warm and dry. Respiratory: Reports cough that is Airway is patent Respiratory effort is even, unlabored, Respiratory pattern is regular, symmetrical, Breath sounds are clear bilaterally. in mediastinum, right upper lobe, left upper lobe, right middle lobe, left lower lobe and right lower lobe. GI: No signs and/or symptoms were reported involving the gastrointestinal system. GI: Reports vomiting. : No signs and/or symptoms were reported regarding the genitourinary system. EENT: No signs and/or symptoms were reported regarding the EENT system. Derm: Skin is intact, is healthy with good turgor, Skin is pink, warm \T\ dry. normal. Musculoskeletal: Circulation, motion, and sensation intact. Capillary refill < 3 seconds. Vital Signs: 15:38 BP 116 / 83; Pulse 81; Resp 16; Temp 97.8; Pulse Ox 100% on R/A; Weight 90.72 kg; hb Height 5 ft. 4 in. (162.56 cm); Pain 4/10; 16:18 BP 120 / 78; Pulse 80; Resp 18; Temp 97.8; Pulse Ox 100% on R/A; mg2 15:38 Body Mass Index 34.33 (90.72 kg, 162.56 cm) hb ED Course: 15:34 Patient arrived in ED. mr 15:36 [facility] Lu[facility]-C [facility] la1 15:36 Mikhail Sánchez MD is Attending Physician. la1 15:38 Triage completed. hb 15:38 Arm band placed on. hb 15:42 Travon Barrett, EVANGELINA is Primary Nurse. mg2 16:17 Patient has correct armband on for positive identification. mg2 16:18 No provider procedures requiring assistance completed. Patient did not have IV access mg2 during this emergency room visit. Administered Medications: 16:00 Drug: Tessalon Perle 200 mg Route: PO; mg2 16:18 Follow up: Response: No adverse reaction mg2 Outcome: 16:00 Discharge ordered by MD. la1 16:18 Discharged to home ambulatory, with family. mg2 16:18 Condition: stable 16:18 Discharge instructions given to patient, family, Instructed on discharge instructions, follow up and referral plans. medication usage, Demonstrated understanding of instructions, follow-up care, medications, Prescriptions given X 3. 16:19 Patient left the ED. mg2 Signatures: Robert Kelsie taveras Brant Luu FNP-C INTERNATIONAL TRADE ANALYST-Cla1 Dena Porras RN RN Travon Barrett, EVANGELINA RN mg2
[2019-02-24 03:41] VITALS: TEMP 97.8; O2SAT 100
[2019-02-24 03:42] VITALS: BP 120/78
== END 2019-02-23 16:19 | disposition home or self-care (01) ==
LOC: ER 15:27
DX: J40 Bronchitis, not specified as acute or chronic (principal)
CPT/HCPCS: 99283

== ENCOUNTER 2020-07-01 09:32 | Emergency (ER) | payer SELFPAY ==
--- OUTSIDE RECORDS SUMMARY | 2020-07-01 09:34 | XMS REPORT | Continuity of Care Document ---
:1985 Author Organization [facility] t Address [address] [place] [address] Dr. Vines [address] [place] [id number] Care Team Providers Name Role Phone Unavailable Unavailable Unavailable Problems This patient has no known problems. Allergies, Adverse Reactions, Alerts This patient has no known allergies or adverse reactions. Medications This patient has no known medications. Procedures This patient has no known procedures. Results This patient has no known results.
--- NOTE | 2020-07-01 09:52 | ER ---
Nurse's Notes [facility] Name: Renée Keita Age: 34 yrs Sex: Female : 1985 Arrival Date: 07/01/2020 Time: 09:34 Bed 4 Private MD: Diagnosis: Cellulitis of face Presentation: 07/01 09:38 Chief complaint: Patient states: rash to right eye and surrounding area that began aa5 yesterday, pt describes rash as itchy and burning. 09:38 Coronavirus screen: At this time, the client does not indicate any symptoms associated aa5 with coronavirus-19. Ebola Screen: Patient negative for fever greater than or equal to 101.5 degrees Fahrenheit, and additional compatible Ebola Virus Disease symptoms. Initial Sepsis Screen: Does the patient meet any 2 criteria? No. Patient's initial sepsis screen is negative. Does the patient have a suspected source of infection? No. Patient's initial sepsis screen is negative. Risk Assessment: Do you want to hurt yourself or someone else? Patient reports no desire to harm self or others. Onset of symptoms was June 2020. 09:38 Acuity: KAMILA 4 aa5 09:38 Method Of Arrival: Ambulatory aa5 Historical: - Allergies: 09:50 No Known Allergies; aa5 - PMHx: 09:50 psoriasis; aa5 - PSHx: 09:50 Cholecystectomy; skin graft in the right arm; aa5 - Immunization history:: Adult Immunizations unknown. - Social history:: Smoking status: Patient denies any tobacco usage or history of. Screenin:55 Abuse screen: Denies threats or abuse. Denies injuries from another. Nutritional jl7 screening: No deficits noted. Tuberculosis screening: No symptoms or risk factors identified. Fall Risk None identified. Assessment: 09:55 General: Appears in no apparent distress. uncomfortable, Behavior is calm, cooperative, jl7 appropriate for age. Pain: Complains of pain in right eye Pain currently is 3 out of 10 on a pain scale. Neuro: Level of Consciousness is awake, alert, obeys commands, Oriented to person, place, time, situation. Cardiovascular: Patient's skin is warm and dry. Respiratory: Airway is patent Respiratory effort is even, unlabored, Respiratory pattern is regular, symmetrical, Denies shortness of breath. Derm: Skin is pink, warm \T\ dry. Rash noted that is red, urticaria, on right eye. Vital Signs: 09:38 BP 104 / 55; Pulse 65; Resp 18 S; Temp 97.6(O); Pulse Ox 96% on R/A; Weight 106.14 kg aa (R); Height 5 ft. 4 in. (162.56 cm) (R); Pain 3/10; 09:38 Body Mass Index 40.17 (106.14 kg, 162.56 cm) [facility] ED Course: 09:34 Patient arrived in ED. as 09:37 Alissa Badillo [facility]NP-C [facility]. kb 09:37 Sergey Daniels MD is Attending Physician. kb 09:38 Arm band placed on Patient placed in an exam room, on a stretcher. aa5 09:45 Zane Ley, RN is Primary Nurse. jl7 09:49 Triage completed. aa5 09:55 Patient has correct armband on for positive identification. Bed in low position. Call jl7 light in reach. Side rails up X 1. Pulse ox on. NIBP on. 10:05 No provider procedures requiring assistance completed. Patient did not have IV access jl7 during this emergency room visit. Administered Medications: 10:00 Drug: KeFLEX (cephalexin) 500 mg Route: PO; jl7 10:06 Follow up: Response: Medication administered at discharge. jl7 10:00 Drug: predniSONE 40 mg Route: PO; jl7 10:06 Follow up: Response: Medication administered at discharge. jl7 10:00 Drug: Pepcid (famotidine) 20 mg Route: PO; jl7 10:06 Follow up: Response: Medication administered at discharge. jl7 Outcome: 09:52 Discharge ordered by . kb 10:05 Discharged to home ambulatory. jl7 10:05 Condition: stable 10:05 Discharge instructions given to patient, family, Instructed on discharge instructions, follow up and referral plans. medication usage, Demonstrated understanding of instructions, follow-up care, medications, Prescriptions given X 3. 10:06 Patient left the ED. jl7 Signatures: Alissa Badillo FNP-C FNP-Ckb Martinez, Amelia as Calderon, Audri RN RN [facility] Zane Ley, EVANGELINA HUTCHINSON jl7
--- NOTE | 2020-07-01 09:52 | EDPHYS ---
Physician Documentation [facility] Name: Renée Keita Age: 34 yrs Sex: Female : 1985 Arrival Date: 07/01/2020 Time: 09:34 Bed 4 Private MD: ED Physician Sergey Daniels HPI: 07/01 10:01 This 34 yrs old Female presents to ER via Ambulatory with complaints of kb Facial Swelling, Eye Swelling. 10:01 the patient presents with a swollen area of the right cheek and right eye. Description: kb erythematous, swollen. Onset: The symptoms/episode began/occurred yesterday. Possible cause(s): unknown. Associated signs and symptoms: Pertinent positives: erythema, swelling. Modifying factors: the symptoms are alleviated by nothing, the symptoms are aggravated by nothing. Severity of symptoms: At their worst the symptoms were moderate, in the emergency department the symptoms are unchanged. The patient has not experienced similar symptoms in the past. The patient has not recently seen a physician. Pt reports swelling and redness to right side of face started yesterday. Symptoms getting worse and starting to move across bridge of nose to other eye. Reports area was hot to touch before going to sleep, now normal temp. Denies fever/chills. Reports itching to area. No relief with benadryl or ibuprofen. Historical: - Allergies: 09:50 No Known Allergies; aa5 - PMHx: 09:50 psoriasis; aa5 - PSHx: 09:50 Cholecystectomy; skin graft in the right arm; aa5 - Immunization history:: Adult Immunizations unknown. - Social history:: Smoking status: Patient denies any tobacco usage or history of. ROS: 10:00 Constitutional: Negative for fever, chills, and weight loss, Respiratory: Negative for kb shortness of breath, cough, wheezing, and pleuritic chest pain, Abdomen/GI: Negative for abdominal pain, nausea, vomiting, diarrhea, and constipation, MS/Extremity: Negative for injury and deformity, Neuro: Negative for headache, weakness, numbness, tingling, and seizure. 10:00 Skin: Positive for erythema, swelling, of the right cheek and right eye. Exam: 09:59 Constitutional: This is a well developed, well nourished patient who is awake, alert, kb and in no acute distress. Respiratory: Respirations even and unlabored. No increased work of breathing, no retractions or nasal flaring. MS/ Extremity: Pulses equal, no cyanosis. Neurovascular intact. Full, normal range of motion. Neuro: Awake and alert, GCS 15, oriented to person, place, time, and situation. Moves all extremities. Normal gait. 09:59 Head/face: Noted is no obvious of injury or deformity except erythema, that is mild, that is moderate, of the right eye and right cheek, swelling, that is moderate, of the right eye and right cheek. 09:59 Skin: cellulitis, that is mild, on the right eye and right cheek. Vital Signs: 09:38 BP 104 / 55; Pulse 65; Resp 18 S; Temp 97.6(O); Pulse Ox 96% on R/A; Weight 106.14 kg aa5 (R); Height 5 ft. 4 in. (162.56 cm) (R); Pain 3/10; 09:38 Body Mass Index 40.17 (106.14 kg, 162.56 cm) aa5 MDM: 09:38 Patient medically screened. kb 09:50 Data reviewed: vital signs, nurses notes. Data interpreted: Pulse oximetry: on room air kb is 96 %. Interpretation: normal. Counseling: I had a detailed discussion with the patient and/or guardian regarding: the historical points, exam findings, and any diagnostic results supporting the discharge/admit diagnosis, the need for outpatient follow up, a family practitioner, to return to the emergency department if symptoms worsen or persist or if there are any questions or concerns that arise at home. 09:57 ED course: Erythema and swelling appear to be allergic in nature. Pt reports the area kb was very hot to touch last night and is spreading quickly. Will treat allergic component with prednisone and pepcid, infectious component with keflex. No pain to eye itself, EOM intact without pain. Administered Medications: 10:00 Drug: KeFLEX (cephalexin) 500 mg Route: PO; 7 10:06 Follow up: Response: Medication administered at discharge. jl7 10:00 Drug: predniSONE 40 mg Route: PO; 10:06 Follow up: Response: Medication administered at discharge. jl7 10:00 Drug: Pepcid (famotidine) 20 mg Route: PO; 10:06 Follow up: Response: Medication administered at discharge. jl7 Disposition: 07/02 08:47 Co-signature as Attending Physician, Sergey Daniels MD I agree with the assessment and [facility] plan of care. Disposition: 07/01/20 09:52 Discharged to Home. Impression: Cellulitis of face. - Condition is Stable. - Discharge Instructions: Cellulitis, Adult, [id number], Allergies, [id number]. - Prescriptions for Keflex 500 mg Oral Capsule - take 1 capsule by ORAL route every 8 hours for 7 days; 21 capsule. Pepcid 20 mg Oral Tablet - take 1 tablet by ORAL route every 12 hours for 5 days; 10 tablet. Prednisone 20 mg Oral Tablet - take 1 tablet by ORAL route once daily for 5 days; 5 tablet. - Medication Reconciliation Form, Thank You Letter, Antibiotic Education, Prescription Opioid Use, Work release form form. - Follow up: Emergency Department; When: As needed; Reason: Worsening of condition. Follow up: Private Physician; When: 2 - 3 days; Reason: Recheck today's complaints, Continuance of care, Re-evaluation by your physician. Signatures: Alissa Badillo, SOLAR/RENEWABLE ENERGY SALES-C SOLAR/RENEWABLE ENERGY SALES-Sergey Lua MD MD cha Calderon, Audri, RN RN aa5 Zane Ley RN RN jl7 Corrections: (The following items were deleted from the chart) 07/01 10:06 09:52 07/01/2020 09:52 Discharged to Home. Impression: Cellulitis of face. Condition is jl7 Stable. Forms are Medication Reconciliation Form, Thank You Letter, Antibiotic Education, Prescription Opioid Use. Follow up: Emergency Department; When: As needed; Reason: Worsening of condition. Follow up: Private Physician; When: 2 - 3 days; Reason: Recheck today's complaints, Continuance of care, Re-evaluation by your physician. kb
[2020-07-01 10:12] VITALS: BP 104/55; TEMP 97.6; O2SAT 96
[2020-07-01] MEDS ORDERED: FAMOTIDINE 20 MG TAB ONE (10:15)
[2020-07-01] MEDS ORDERED: predniSONE 20 MG TAB ONE (10:15)
[2020-07-01] MEDS ORDERED: CEPHALEXIN 250 MG CAP ONE (10:15)
== END 2020-07-01 10:06 | disposition home or self-care (01) ==
LOC: ER 09:32
DX: L03.211 Cellulitis of face (principal)
CPT/HCPCS: 99283; J7512

== ENCOUNTER 2020-08-28 21:07 | Emergency (ER) | payer SELFPAY ==
--- OUTSIDE RECORDS SUMMARY | 2020-08-28 21:09 | XMS REPORT | Continuity of Care Document ---
:1985 Author Organization [facility] t Address [address] [place] [address] Dr. Goldstein[address] [place] [id number] Care Team Providers Name Role Phone Unavailable Unavailable Unavailable Problems This patient has no known problems. Allergies, Adverse Reactions, Alerts This patient has no known allergies or adverse reactions. Medications This patient has no known medications. Procedures This patient has no known procedures. Results This patient has no known results.
[2020-08-28 21:48] LABS: Absolute Lymphocytes (CBC) 1.8 K/uL (0.7-4.9); Basophils % 0.5 % (0-1.3); Hematocrit 38.2 % (36.0-45.0); Lymphocytes % 25.4 % (15.3-44.8); RBC Red Blood Cell Count 4.16 M/uL (3.86-4.86)
[2020-08-28] MEDS ORDERED: FENTANYL CITR 100 MCG/2 ML ONE (21:56)
[2020-08-28] MEDS ORDERED: NA CHLORIDE 0.9% 1,000 ML ONE ×2 (21:56→23:09)
[2020-08-28 21:57] LABS: Protime INR 1.05
[2020-08-28 22:06] LABS: BUN Blood Urea Nitrogen 11 mg/dL (7-18); Bicarbonate 28 mmol/L (21-32); Glucose Level 99 mg/dL (74-106); Potassium 3.1 mmol/L (3.5-5.1); Sodium Level 147 mmol/L (136-145)
[2020-08-28 22:14] LABS: HCG, Quantitative < 1 mIU/mL (1-3)
[2020-08-28] MEDS ORDERED: KETOROLAC 30 MG/ML INJ ONE (22:36)
[2020-08-28] MEDS ORDERED: POTASSIUM 25 MEQ EFFERV TAB ONE (23:09)
--- NOTE | 2020-08-28 23:30 | ER ---
Nurse's Notes [facility] Name: Renée Keita Age: 34 yrs Sex: Female : 1985 Arrival Date: 08/28/2020 Time: 21:08 Bed 13 Private MD: Diagnosis: Abnormal uterine and vaginal bleeding, unspecified Presentation: 08/28 21:42 Chief complaint: EMS states: patient has complaining of abdominal pain and vaginal jm8 bleeding since last night at 1 am. States she has saturated 10- 12 pads so far today. Coronavirus screen: Client denies travel out of the [place] in the last 14 days. At this time, the client does not indicate any symptoms associated with coronavirus-19. Ebola Screen: Patient negative for fever greater than or equal to 101.5 degrees Fahrenheit, and additional compatible Ebola Virus Disease symptoms Patient denies exposure to infectious person. Patient denies travel to an Ebola-affected area in the 21 days before illness onset. Initial Sepsis Screen: Does the patient meet any 2 criteria? No. Patient's initial sepsis screen is negative. Does the patient have a suspected source of infection? No. Patient's initial sepsis screen is negative. Risk Assessment: Do you want to hurt yourself or someone else? Patient reports no desire to harm self or others. Onset of symptoms was August 28, 2020 at 01:00. 21:42 Method Of Arrival: EMS: [facility] 21:42 Acuity: KAMILA 3 jm8 Triage Assessment: 21:45 General: Appears in no apparent distress. uncomfortable, Behavior is calm, cooperative, jm8 appropriate for age. Pain: Complains of pain in pelvis Pain radiates to right leg and left leg Pain currently is 10 out of 10 on a pain scale. Quality of pain is described as crampy, Pain began 1 day ago. Noted to be guarding, Also complains of no other associated symptoms. EENT: No deficits noted. No signs and/or symptoms were reported regarding the EENT system. Neuro: No deficits noted. Level of Consciousness is awake, alert, obeys commands, Oriented to person, place, time. Cardiovascular: No deficits noted. Respiratory: No deficits noted. Airway is patent Trachea midline Respiratory effort is even, unlabored, Respiratory pattern is regular, symmetrical. GI: No deficits noted. No signs and/or symptoms were reported involving the gastrointestinal system. : No deficits noted. Reports cramping, pain in suprapubic area vaginal bleeding that is brown, with clots. Derm: No deficits noted. No signs and/or symptoms reported regarding the dermatologic system. Musculoskeletal: No deficits noted. No signs and/or symptoms reported regarding the musculoskeletal system. 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 - Social history:: Smoking status: Patient denies any tobacco usage or history of. Screenin:47 Abuse screen: Denies threats or abuse. Denies injuries from another. Nutritional jm8 screening: No deficits noted. Tuberculosis screening: No symptoms or risk factors identified. Fall Risk None identified. Vital Signs: 21:42 BP 100 / 76; Pulse 68; Resp 16; Temp 97.6; Pulse Ox 97% ; Weight 102.06 kg; Height 5 jm8 ft. 4 in. (162.56 cm); Pain 10/10; 08/29 00:09 BP 103 / 78; Pulse 74; Resp 16; Pulse Ox 99% on R/A; jm8 08/28 21:42 Body Mass Index 38.62 (102.06 kg, 162.56 cm) jm8 ED Course: 08/28 21:08 Patient arrived in ED. jm8 21:08 Sergey Villa PA is PHCP. cp 21:08 Garret Rosenberg MD is Attending Physician. cp 21:44 Triage completed. jm8 21:47 Patient has correct armband on for positive identification. Placed in gown. Bed in low jm8 position. Call light in reach. Side rails up X2. Adult w/ patient. 21:47 Arm band placed on right wrist. jm8 22:00 Inserted saline lock: 20 gauge in left antecubital area, using aseptic technique. jm8 22:33 US Transvaginal Study (Probe) In Process Unspecified. EDMS 23:21 Assist provider with pelvic exam: Performed by Sergey HAYNES Patient tolerated well. jb5 23:29 Keyur, Jian, MD is Referral Physician. cp 08/29 00:10 IV discontinued, intact, bleeding controlled. jm8 Administered Medications: 08/28 21:40 Drug: NS 0.9% 1000 ml Route: IV; Rate: 1 bolus; Site: left antecubital; jm8 08/29 00:22 Follow up: IV Status: Completed infusion jm8 08/28 21:40 Drug: fentaNYL (PF) 25 mcg Route: IVP; Site: left antecubital; jm8 22:26 Follow up: Response: No adverse reaction jm8 22:26 Drug: TORadol - (ketorolac) 15 mg Route: IVP; Site: left antecubital; jm8 23:57 Follow up: Response: No adverse reaction jm8 23:07 Drug: Potassium Effervescent Tablet 50 mEq Route: PO; jm8 23:57 Follow up: Response: No adverse reaction jm8 23:07 Drug: NS 0.9% 1000 ml Route: IV; Rate: 1 bolus; Site: left antecubital; jm8 08/29 00:22 Follow up: IV Status: Completed infusion 8 08/28 23:57 Drug: fentaNYL (PF) 25 mcg Route: IVP; Site: left antecubital; jm8 08/29 00:11 Follow up: Response: No adverse reaction; Medication administered at discharge. jm8 Outcome: 08/28 23:30 Discharge ordered by . 08/29 00:10 Discharged to Law Enforcement jm8 Condition: good Discharge instructions given to patient, Instructed on discharge instructions, follow up and referral plans. medication usage, Demonstrated understanding of instructions, follow-up care, medications, Prescriptions given X 00:22 Patient left the ED. jm8 Signatures: Dispatcher [employer] EDMS Sergey Villa PA PA cp Broussard, Jennifer jb5 Brandon Dewitt, EVANGELINA RN jm8
--- NOTE | 2020-08-28 23:30 | EDPHYS ---
Physician Documentation [facility] Name: Renée Keita Age: 34 yrs Sex: Female : 1985 Arrival Date: 08/28/2020 Time: 21:08 Bed 13 Private MD: ED Physician Garret Rosenberg HPI: 08/28 21:15 This 34 yrs old Female presents to ER via EMS with complaints of Vaginal cp Bleeding. 21:15 The patient presents with vaginal bleeding that is with clots. cp 21:15 Onset: The symptoms/episode began/occurred yesterday, and became worse today. Modifying cp factors: The symptoms are alleviated by nothing. Associated signs and symptoms: Pertinent positives: cramping, urinary frequency, Pertinent negatives: fever. Severity of symptoms: in the emergency department the symptoms are unchanged. 21:15 Patient reports last menstrual cycle 2 weeks ago. cp 21:15 The patient's method of control includes nothing. 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 - Social history:: Smoking status: Patient denies any tobacco usage or history of. ROS: 21:20 : Positive for vaginal bleeding, Negative for urinary symptoms. cp 21:20 Eyes: Negative for injury, pain, redness, and discharge. cp 21:20 Constitutional: Negative for body aches, chills, fever, poor PO intake. 21:20 ENT: Negative for ear pain, sore throat, difficulty swallowing, difficulty handling secretions. 21:20 Cardiovascular: Negative for chest pain, palpitations. 21:20 Respiratory: Negative for cough, shortness of breath, wheezing. 21:20 Abdomen/GI: Positive for abdominal cramps, Negative for nausea, vomiting, and diarrhea. 21:20 Neuro: Negative for altered mental status, headache, syncope, weakness. 21:20 All other systems are negative. Exam: 21:25 Constitutional: The patient appears in no acute distress, alert, awake, non-toxic, well cp developed, well nourished. 21:25 Head/Face: Normocephalic, atraumatic. cp 21:25 Eyes: Periorbital structures: appear normal, Conjunctiva: normal, no exudate, no injection, Sclera: no appreciated abnormality, Lids and lashes: appear normal, bilaterally. 21:25 ENT: External ear(s): are unremarkable, Nose: is normal, Mouth: Lips: moist, Oral mucosa: moist, Posterior pharynx: Airway: no evidence of obstruction, patent. 21:25 Chest/axilla: Inspection: normal. 21:25 Cardiovascular: Rate: normal, Rhythm: regular. 21:25 Respiratory: the patient does not display signs of respiratory distress, Respirations: normal, no use of accessory muscles, no retractions, labored breathing, is not present, Breath sounds: are clear throughout, no decreased breath sounds. 21:25 Abdomen/GI: Inspection: abdomen appears normal, Bowel sounds: active, all quadrants, Palpation: soft, in all quadrants, moderate abdominal tenderness, in all quadrants, rebound tenderness, is not appreciated, involuntary guarding, is not appreciated. 21:25 Back: CVA tenderness, is absent. 21:25 Neuro: Orientation: to person, place \T\ time. Mentation: is normal, Motor: moves all fours, strength is normal. 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 Vital Signs: 21:42 BP 100 / 76; Pulse 68; Resp 16; Temp 97.6; Pulse Ox 97% ; Weight 102.06 kg; Height 5 jm8 ft. 4 in. (162.56 cm); Pain 10/10; 08/29 00:09 BP 103 / 78; Pulse 74; Resp 16; Pulse Ox 99% on R/A; jm8 08/28 21:42 Body Mass Index 38.62 (102.06 kg, 162.56 cm) 8 MDM: 08/28 21:11 Patient medically screened. cp 23:30 Data reviewed: vital signs, nurses notes, lab test result(s), radiologic studies, cp ultrasound, and as a result, I will discharge patient. 23:30 Counseling: I had a detailed discussion with the patient and/or guardian regarding: the cp historical points, exam findings, and any diagnostic results supporting the discharge/admit diagnosis, lab results, radiology results, the need for outpatient follow up, an OB/Gyne specialist, to return to the emergency department if symptoms worsen or persist or if there are any questions or concerns that arise at home. Response to treatment: the patient's symptoms have markedly improved after treatment, VSS. Pain improved, H/H stable. Will discharge into custody of law enforcement. 08/28 21:10 Order name: Quantitative Hcg; Complete Time: 22:34 cp 08/28 22:34 Interpretation: Reviewed. 08/28 21:10 Order name: Basic Metabolic Panel; Complete Time: 22:34 08/28 22:34 Interpretation: Normal except: NA 147; K 3.1; CL 113. 08/28 21:10 Order name: CBC with Diff; Complete Time: 22:05 08/28 22:05 Interpretation: Reviewed. 08/28 21:10 Order name: PT-INR; Complete Time: 22:05 cp 08/28 21:10 Order name: Ptt, Activated; Complete Time: 22:05 08/28 21:10 Order name: Type And Screen 08/28 21:11 Order name: US Transvaginal Study (Probe) 08/28 21:10 Order name: IV Saline Lock; Complete Time: 21:33 cp 08/28 21:10 Order name: Labs collected and sent; Complete Time: 21:33 08/28 21:10 Order name: NPO; Complete Time: 21:33 08/28 21:10 Order name: Urine Dipstick-Ancillary (obtain specimen); Complete Time: 21:33 08/28 21:10 Order name: Pelvic Exam Setup; Complete Time: 23:32 cp Administered Medications: 21:40 Drug: NS 0.9% 1000 ml Route: IV; Rate: 1 bolus; Site: left antecubital; 08/29 00:22 Follow up: IV Status: Completed infusion [facility] 08/28 21:40 Drug: fentaNYL (PF) 25 mcg Route: IVP; Site: left antecubital; 22:26 Follow up: Response: No adverse reaction 22:26 Drug: TORadol - (ketorolac) 15 mg Route: IVP; Site: left antecubital; 8 23:57 Follow up: Response: No adverse reaction [facility] 23:07 Drug: Potassium Effervescent Tablet 50 mEq Route: PO; 8 23:57 Follow up: Response: No adverse reaction [facility] 23:07 Drug: NS 0.9% 1000 ml Route: IV; Rate: 1 bolus; Site: left antecubital; 8 08/29 00:22 Follow up: IV Status: Completed infusion [facility] 08/28 23:57 Drug: fentaNYL (PF) 25 mcg Route: IVP; Site: left antecubital; 8 08/29 00:11 Follow up: Response: No adverse reaction; Medication administered at discharge. jm8 Disposition: 04:04 Co-signature as Attending Physician, Garret Rosenberg MD. rn Disposition: 08/28/20 23:30 Discharged to Home. Impression: Abnormal uterine and vaginal bleeding, unspecified. - Condition is Stable. - Discharge Instructions: Abnormal Uterine Bleeding, Dysfunctional Uterine Bleeding. - Prescriptions for Diclofenac Sodium 75 mg Oral Tablet, Delayed Release (E.C.) - take 1 tablet by ORAL route 2 times per day; 20 tablet. - Medication Reconciliation Form, Thank You Letter, Antibiotic Education, Prescription Opioid Use form. - Follow up: Jian Baer MD; When: 2 - 3 days; Reason: Recheck today's complaints. - Problem is new. - Symptoms have improved. Signatures: Dispatcher [employer] EDGarret Bocanegra MD MD rn Page, Corey, PA PA cp Malcaba, Joseph RN RN jm8 Corrections: (The following items were deleted from the chart) 08/28 21:47 21:46 This 34 yrs old Female presents to ER via EMS with complaints of cp Vaginal Bleeding. cp 08/29 00:22 08/28 23:30 08/28/2020 23:30 Discharged to Home. Impression: Abnormal uterine and jm8 vaginal bleeding, unspecified. Condition is Stable. Forms are Medication Reconciliation Form, Thank You Letter, Antibiotic Education, Prescription Opioid Use. Follow up: Jian Baer; When: 2 - 3 days; Reason: Recheck today's complaints. Problem is new. Symptoms have improved. cp
[2020-08-29] MEDS ORDERED: FENTANYL CITR 100 MCG/2 ML ONE (00:13)
[2020-08-29 00:37] VITALS: TEMP 97.6
[2020-08-29 00:41] VITALS: BP 103/78; O2SAT 99
--- NOTE | 2020-08-29 06:51 | RAD REPORT ---
EXAM DESCRIPTION: US - Transvaginal Study Probe - 08/28/2020 10:04 pm CLINICAL HISTORY: Vaginal bleeding COMPARISON: none FINDINGS: The uterus measures 7 x 3 x 3cm. The endometrial stripe measures [address] subserosal fibroid within the uterine body. Nabothian cysts within the cervix The left ovary is normal in size and echotexture. The right ovary was not seen secondary to overlying bowel gas. No significant free fluid is seen. IMPRESSION: 2 centimeter uterine fibroid
== END 2020-08-29 00:22 | disposition home or self-care (01) ==
LOC: ER 21:07
DX: N93.9 Abnormal uterine and vaginal bleeding, unspecified (principal)
CPT/HCPCS: 36415; 76830; 80048; 84702; 85025; 85610; 85730; 86850; 86900; 86901; 96361; 96374; 96375; 99284; J3010; J7030

== ENCOUNTER 2020-08-30 12:44 | Emergency (ER) | payer SELFPAY ==
--- OUTSIDE RECORDS SUMMARY | 2020-08-30 12:48 | XMS REPORT | Continuity of Care Document ---
:1985 Author Organization [facility] t Address [address] [place] [address] Dr. Vines [address] [place] [id number] Care Team Providers Name Role Phone Unavailable Unavailable Unavailable Problems This patient has no known problems. Allergies, Adverse Reactions, Alerts This patient has no known allergies or adverse reactions. Medications This patient has no known medications. Procedures This patient has no known procedures. Results This patient has no known results.
[2020-08-30 15:26] LABS: Absolute Lymphocytes (CBC) 2.3 K/uL (0.7-4.9); Basophils % 0.3 % (0-1.3); Hematocrit 37.8 % (36.0-45.0); Lymphocytes % 27.7 % (15.3-44.8); MPV 8.8 fL (7.6-11.3); RBC Red Blood Cell Count 4.12 M/uL (3.86-4.86)
[2020-08-30 15:48] LABS: BUN Blood Urea Nitrogen 9 mg/dL (7-18); Bicarbonate 28 mmol/L (21-32); Glucose Level 99 mg/dL (74-106); Potassium 3.4 mmol/L (3.5-5.1); Sodium Level 147 mmol/L (136-145)
[2020-08-30 15:49] LABS: Urine Blood 3+ (Negative); Urine Glucose Negative (Negative); Urine Protein Negative (Negative); Urine Specific Gravity >=1.030 (1.005-1.030); Urine pH 5.5 (5.0-7.0)
[2020-08-30] MEDS ORDERED: FENTANYL CITR 100 MCG/2 ML ONE (15:53)
[2020-08-30] MEDS ORDERED: NA CHLORIDE 0.9% 1,000 ML ONE (15:53)
[2020-08-30 15:55] LABS: Urine Specific Gravity/Preg >1.030 (1.005-1.030)
--- NOTE | 2020-08-30 16:18 | RAD REPORT ---
EXAM DESCRIPTION: CTAbdomen Pelvis W Contrast - 08/30/2020 3:53 pm CLINICAL HISTORY: Abdominal pain. ABD PAIN COMPARISON: CT ABD PELVIS W CONTRAST dated 09/14/2012 TECHNIQUE: Biphasic CT imaging of the abdomen and pelvis was performed with 100 ml non-ionic IV cont rast. All CT scans are performed using dose optimization technique as appropriate and may include automated exposure control or mA/KV adjustment according to patient size. FINDINGS: The lung bases are clear.Cholecystectomy clips. The liver, spleen, pancreas, adrenal glands and kidneys are within normal limits. No bowel obstruction, free air, intra-abdominal free fluid or abscess. The appendix is normal. No e vidence of significant lymphadenopathy. No suspicious bony findings. Trace pelvic free fluid. IMPRESSION: No acute intra-abdominal or pelvic finding.
--- NOTE | 2020-08-30 17:05 | EDPHYS ---
Physician Documentation [facility] Name: Renée Keita Age: 34 yrs Sex: Female : 1985 Arrival Date: 08/30/2020 Time: 12:50 Bed 20 Private MD: ED Physician Mikhail Sánchez HPI: 08/30 14:55 This 34 yrs old Female presents to ER via Wheelchair with complaints of cp Urinary Problem - blood, Abdominal Pain. 14:55 The patient presents with vaginal bleeding that is heavy, with clots. cp 14:55 Onset: The symptoms/episode began/occurred 2 day(s) ago. Associated signs and symptoms: cp Pertinent positives: vaginal bleeding, Pertinent negatives: constipation, diarrhea, fever, urinary frequency. Severity of symptoms: in the emergency department the symptoms are unchanged, despite home interventions. 14:55 The patient is sexually active, does not use protection during intercourse. The cp patient's method of control includes nothing. The patient has been recently seen at the [facility] Emergency Department, this week, for similar complaints labs were performed, an ultrasound was performed. 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 - Social history:: Smoking status: . ROS: 15:00 Abdomen/GI: Positive for abdominal pain. cp 15:00 Constitutional: Negative for fever. cp 15:00 : Positive for vaginal bleeding, Negative for urinary symptoms. Exam: 15:05 Constitutional: The patient appears in no acute distress, alert, awake, non-toxic, well cp developed, well nourished, obese. 15:05 Head/Face: Normocephalic, atraumatic. cp 15:05 Eyes: Periorbital structures: appear normal, Conjunctiva: normal, no exudate, no injection, Sclera: no appreciated abnormality, Lids and lashes: appear normal, bilaterally. 15:05 ENT: External ear(s): are unremarkable, Nose: is normal, Mouth: Lips: moist, Oral mucosa: Posterior pharynx: Airway: no evidence of obstruction, patent. 15:05 Chest/axilla: Inspection: normal, Palpation: is normal, no crepitus, no tenderness. 15:05 Cardiovascular: Rate: normal, Rhythm: regular. 15:05 Respiratory: the patient does not display signs of respiratory distress, Respirations: normal, no use of accessory muscles, no retractions, labored breathing, is not present, Breath sounds: are clear throughout, no decreased breath sounds, no stridor, no wheezing. 15:05 Abdomen/GI: Inspection: abdomen appears normal, Bowel sounds: active, all quadrants, Palpation: soft, in all quadrants, severe abdominal tenderness, in the right lower quadrant and left lower quadrant, rebound tenderness, is not appreciated, voluntary guarding, is elicited in the right lower quadrant and left lower quadrant. 15:05 Back: CVA tenderness, is absent. 15:05 Neuro: Orientation: to person, place \T\ time. Mentation: is normal. 16:45 : Pelvic Exam: The exam is refused by the patient/guardian. The risks and cp consequences are understood by the patient. Vital Signs: 12:51 BP 116 / 80; Pulse 64; Resp 17; Temp 98; Pulse Ox 100% on R/A; Weight 102.06 kg (R); tw2 Height 5 ft. 4 in. (162.56 cm); Pain 10/10; 15:39 rb3 16:23 BP 115 / 79; Pulse 60; Resp 17; Pulse Ox 98% ; rb3 17:06 BP 97 / 58 Supine; Pulse 61; Resp 17; Pulse Ox 98% ; rb3 17:08 BP 104 / 58 Sitting; Pulse 56; Resp 16; Pulse Ox 98% ; rb3 17:10 BP 106 / 57 Standing; Pulse 57; Resp 17; Pulse Ox 99% ; rb3 12:51 Body Mass Index 38.62 (102.06 kg, 162.56 cm) tw2 15:[address] rb3 MDM: 14:52 Patient medically screened. cp 15:00 Differential diagnosis: dysmenorrhea, malignancy, menometrorrhagia, uterine fibroids, cp anemia. 17:05 Data reviewed: vital signs, nurses notes, lab test result(s), radiologic studies, CT cp scan. 17:05 Counseling: I had a detailed discussion with the patient and/or guardian regarding: the cp historical points, exam findings, and any diagnostic results supporting the discharge/admit diagnosis, lab results, radiology results, the need for outpatient follow up, an OB/Gyne specialist. Response to treatment: the patient's symptoms have markedly improved after treatment. 08/30 14:58 Order name: Basic Metabolic Panel; Complete Time: 16:20 cp 08/30 16:21 Interpretation: Normal except: NA 147; K 3.4; CL 114. 08/30 14:58 Order name: CBC with Diff; Complete Time: 15:33 cp 08/30 15:34 Interpretation: Reviewed. 08/30 14:58 Order name: PT-INR; Complete Time: 16:20 cp 08/30 14:58 Order name: Ptt, Activated; Complete Time: 16:20 08/30 14:58 Order name: Type And Screen; Complete Time: 16:20 cp 08/30 15:49 Order name: Urine Dipstick-Ancillary; Complete Time: 16:20 EDMS 08/30 16:44 Interpretation: Normal except: UBLD 3+. 08/30 14:52 Order name: Orthostatics; Complete Time: 17:23 cp 08/30 14:58 Order name: Urine Test (obtain specimen); Complete Time: 15:51 cp 08/30 14:58 Order name: IV Saline Lock; Complete Time: 15:20 cp 08/30 14:58 Order name: CT Abd/Pelvis - IV Contrast Only; Complete Time: 16:20 08/30 16:21 Interpretation: Report reviewed. 08/30 15:52 Order name: Urine --Ancillary (enter results); Complete Time: 16:20 bd 08/30 14:58 Order name: Labs collected and sent; Complete Time: 15:20 cp 08/30 14:58 Order name: NPO; Complete Time: 15:20 cp 08/30 14:58 Order name: Urine Dipstick-Ancillary (obtain specimen); Complete Time: 16:24 cp 08/30 14:58 Order name: Pelvic Exam Setup; Complete Time: 15:55 cp Administered Medications: 15:43 Drug: NS 0.9% 1000 ml Route: IV; Rate: 1 bolus; Site: left antecubital; rb3 17:07 Follow up: IV Status: Completed infusion rb3 15:43 Drug: fentaNYL (PF) 25 mcg Route: IVP; Site: left antecubital; rb3 16:00 Follow up: Response: No adverse reaction; Pain is decreased rb3 17:19 Not Given (Patient Refused; Reports she has pills at home she can take): Potassium rb3 Effervescent Tablet 50 mEq PO once; dissolve in 4 ounces of water or juice Disposition: 18:05 Chart complete. cp 08/31 07:17 Co-signature as Attending Physician, Mikhail Sánchez MD I agree with the assessment and kdr plan of care. Disposition: 08/30/20 17:05 Discharged to Home. Impression: Abnormal uterine and vaginal bleeding, unspecified. - Condition is Stable. - Discharge Instructions: Abnormal Uterine Bleeding, Uterine Fibroids, Dysfunctional Uterine Bleeding. - Prescriptions for medroxyprogesterone 5 mg Oral tablet - take 1 tablet by ORAL route once daily for 7 days; 7 tablet. Tylenol- Codeine #3 300-30 mg Oral Tablet - take 2 tablets by ORAL route every 6-8 hours As needed; 20 tablet. Ibuprofen 800 mg Oral Tablet - take 1 tablet by ORAL route every 8 hours As needed take with food; 30 tablet. - Medication Reconciliation Form, Thank You Letter, Antibiotic Education, Prescription Opioid Use, Work release form form. - Follow up: Jian Baer MD; When: 2 - 3 days; Reason: Recheck today's complaints. - Problem is an ongoing problem. - Symptoms have improved. Signatures: Dispatcher [employer] EDMS Mikhail Snáchez MD MD [facility] Sergey Villa PA PA cp Carol Galaviz RN RN tw2 Ariana Yoder, RN RN rb3 Corrections: (The following items were deleted from the chart) 08/30 18:04 17:05 08/30/2020 17:05 Discharged to Home. Impression: Abnormal uterine and vaginal rb3 bleeding, unspecified. Condition is Stable. Forms are Medication Reconciliation Form, Thank You Letter, Antibiotic Education, Prescription Opioid Use. Follow up: Jian Baer; When: 2 - 3 days; Reason: Recheck today's complaints. Problem is an ongoing problem. Symptoms have improved. cp
--- NOTE | 2020-08-30 17:05 | ER ---
Nurse's Notes [facility] Name: Renée Keita Age: 34 yrs Sex: Female : 1985 Arrival Date: 08/30/2020 Time: 12:50 Bed 20 Private MD: Diagnosis: Abnormal uterine and vaginal bleeding, unspecified Presentation: 08/30 12:51 Chief complaint: Patient states: i was here 2 nights ago, i dont have regular periods. tw2 but i had a period for 5 1/2 months. 2 nights ago i felt this pop and then i was loosing a lot of blood again. at first i thought i was my period starting again. [place]. but i am going through 8 pads in 3 hours and they are fully saturated and soaked. and my lower back and stomach is cramping. i cant stand up or walk. my pain is a 10/10. i have having lots and lots of blood clots. the US the other day looked like normal shedding of lining but this hurts worse and i am loosing so much blood it is scary. Coronavirus screen: At this time, the client does not indicate any symptoms associated with coronavirus-19. Ebola Screen: Patient denies travel to an Ebola-affected area in the 21 days before illness onset. Initial Sepsis Screen: Does the patient meet any 2 criteria? No. Patient's initial sepsis screen is negative. Does the patient have a suspected source of infection? No. Patient's initial sepsis screen is negative. Risk Assessment: Do you want to hurt yourself or someone else? Patient reports no desire to harm self or others. Onset of symptoms was August 30, 2020. 12:51 Method Of Arrival: Wheelchair tw2 12:51 Acuity: KAMILA 2 tw2 Triage Assessment: 12:56 General: Appears in no apparent distress. Behavior is cooperative, appropriate for age. tw2 Pain: Complains of pain in abdomen and pelvis. : Reports vaginal bleeding that is bright red, with clots, heavy flow. 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 - Social history:: Smoking status: . Screenin:45 Abuse screen: Denies threats or abuse. Nutritional screening: No deficits noted. rb3 Tuberculosis screening: No symptoms or risk factors identified. Fall Risk None identified. Assessment: 14:45 General: Appears in no apparent distress. comfortable, Behavior is calm, cooperative. rb3 Pain: Complains of pain in abdomen Pain currently is 10 out of 10 on a pain scale. Neuro: Level of Consciousness is awake, alert, obeys commands, Oriented to person, place, time, situation. Cardiovascular: Patient's skin is warm and dry. Respiratory: Airway is patent Respiratory effort is even, unlabored, Respiratory pattern is regular, symmetrical. GI: No signs and/or symptoms were reported involving the gastrointestinal system. : Reports vaginal bleeding that is bright red, with clots, heavy flow. 15:39 Reassessment: Pt. is in CT. rb3 16:23 Reassessment: Patient appears in no apparent distress at this time. Patient and/or rb3 family updated on plan of care and expected duration. Pain level reassessed. Patient is alert, oriented x 3, equal unlabored respirations, skin warm/dry/pink. 17:21 Reassessment: Patient appears in no apparent distress at this time. Pt. ambulated to rb3 restroom without difficulty. 17:55 Reassessment: Patient appears in no apparent distress at this time. Patient and/or rb3 family updated on plan of care and expected duration. Pain level reassessed. Patient is alert, oriented x 3, equal unlabored respirations, skin warm/dry/pink. Vital Signs: 12:51 BP 116 / 80; Pulse 64; Resp 17; Temp 98; Pulse Ox 100% on R/A; Weight 102.06 kg (R); tw2 Height 5 ft. 4 in. (162.56 cm); Pain 10/10; 15:39 rb3 16:23 BP 115 / 79; Pulse 60; Resp 17; Pulse Ox 98% ; rb3 17:06 BP 97 / 58 Supine; Pulse 61; Resp 17; Pulse Ox 98% ; rb3 17:08 BP 104 / 58 Sitting; Pulse 56; Resp 16; Pulse Ox 98% ; rb3 17:10 BP 106 / 57 Standing; Pulse 57; Resp 17; Pulse Ox 99% ; rb3 12:51 Body Mass Index 38.62 (102.06 kg, 162.56 cm) tw2 15:[address] rb3 ED Course: 12:50 Patient arrived in ED. am2 12:54 Triage completed. tw2 12:56 Arm band placed on. tw2 14:45 Ariana Yoder, RN is Primary Nurse. rb3 14:45 Patient has correct armband on for positive identification. Bed in low position. Call rb3 light in reach. Side rails up X 1. Pulse ox on. NIBP on. Warm blanket given. 14:52 Sergey Villa PA is PHCP. cp 14:52 Mikhail Sánchez MD is Attending Physician. cp 15:53 CT Abd/Pelvis - IV Contrast Only In Process Unspecified. EDMS 17:04 Jian Baer MD is Referral Physician. cp 18:04 No provider procedures requiring assistance completed. IV discontinued, intact, rb3 bleeding controlled, No redness/swelling at site. Pressure dressing applied. Administered Medications: 15:43 Drug: NS 0.9% 1000 ml Route: IV; Rate: 1 bolus; Site: left antecubital; rb3 17:07 Follow up: IV Status: Completed infusion rb3 15:43 Drug: fentaNYL (PF) 25 mcg Route: IVP; Site: left antecubital; rb3 16:00 Follow up: Response: No adverse reaction; Pain is decreased rb3 17:19 Not Given (Patient Refused; Reports she has pills at home she can take): Potassium rb3 Effervescent Tablet 50 mEq PO once; dissolve in 4 ounces of water or juice Outcome: 17:05 Discharge ordered by MD. cp 18:04 Patient left the ED. rb3 18:04 Discharged to home ambulatory, with family. rb3 18:04 Condition: stable 18:04 Discharge instructions given to patient, Instructed on discharge instructions, follow up and referral plans. medication usage, Demonstrated understanding of instructions, follow-up care, medications, Prescriptions given X 3. Signatures: Dispatcher [employer] EDWI Sergey Villa PA PA cp Carol Galaviz RN RN tw2 Kaelyn Gilmore am2 Ariana Yoder, EVANGELINA RN rb3 Corrections: (The following items were deleted from the chart) 17:20 17:06 BP 97 / 58; Pulse 61bpm; Resp 17bpm; Pulse Ox 98%; rb3 rb3
[2020-08-30] MEDS ORDERED: POTASSIUM 25 MEQ EFFERV TAB ONE (17:19)
[2020-08-30 18:52] VITALS: BP 106/57; O2SAT 99
[2020-08-30 19:07] VITALS: TEMP 98
== END 2020-08-30 18:04 | disposition home or self-care (01) ==
LOC: ER 12:44
DX: N93.9 Abnormal uterine and vaginal bleeding, unspecified (principal)
CPT/HCPCS: 36415; 74177; 80048; 81003; 81025; 85025; 85610; 85730; 86850; 86900; 86901; J3010; J7030; Q9967

== ENCOUNTER 2020-09-20 13:04 | Emergency (ER) | payer SELFPAY ==
--- OUTSIDE RECORDS SUMMARY | 2020-09-20 13:07 | XMS REPORT | Continuity of Care Document ---
:1985 Author Organization [facility] t Address [address] [place] [address] Dr. Goldstein[address] [place] [id number] Care Team Providers Name Role Phone Unavailable Unavailable Unavailable Problems This patient has no known problems. Allergies, Adverse Reactions, Alerts This patient has no known allergies or adverse reactions. Medications This patient has no known medications. Procedures This patient has no known procedures. Results This patient has no known results.
--- NOTE | 2020-09-20 13:34 | ER ---
Nurse's Notes [facility] Name: Renée Keita Age: 34 yrs Sex: Female : 1985 Arrival Date: 09/20/2020 Time: 13:06 Bed Waiting Private MD: Diagnosis: Cutaneous abscess of abdominal wall Presentation: 09/20 13:28 Chief complaint: Patient states: abscess to the lower abd area started last week. sv Drainage noted. Coronavirus screen: Client denies travel out of the [place] in the last 14 days. At this time, the client does not indicate any symptoms associated with coronavirus-19. Ebola Screen: No symptoms or risks identified at this time. Risk Assessment: Do you want to hurt yourself or someone else? Patient reports no desire to harm self or others. Onset of symptoms was September 2020. 13:28 Method Of Arrival: Ambulatory sv 13:28 Acuity: KAMILA 3 sv 13:30 Initial Sepsis Screen: Does the patient meet any 2 criteria? No. Patient's initial sv sepsis screen is negative. Does the patient have a suspected source of infection? Yes: Skin breakdown/wound. Triage Assessment: 13:31 General: Appears in no apparent distress. uncomfortable, well groomed, well developed, sv Behavior is calm, cooperative, appropriate for age. Pain: Denies pain. Neuro: Level of Consciousness is awake, alert, obeys commands, Oriented to person, place, time, situation, Gait is steady. Respiratory: Respiratory effort is even, unlabored. Derm: Skin is pink, warm \T\ dry. Abscess located on suprapubic area is dime sized, has purulent drainage, is red, is raised. Historical: - Allergies: 13:29 No Known Allergies; sv - PMHx: 13:29 psoriasis; sv - Immunization history:: Client reports having NOT received the Covid vaccine. - Social history:: Smoking status: Patient denies any tobacco usage or history of. Screenin:32 Abuse screen: Denies threats or abuse. Denies injuries from another. Nutritional sv screening: No deficits noted. Tuberculosis screening: No symptoms or risk factors identified. Fall Risk None identified. Assessment: 13:28 Reassessment: Patient appears in no apparent distress at this time. No changes from sv previously documented assessment. See triage assessment. Vital Signs: 13:30 BP 122 / 72; Pulse 85; Resp 16; Temp 97.3; Pulse Ox 97% ; Weight 90.72 kg; Height 5 ft. sv 4 in. (162.56 cm); Pain 0/10; 13:30 Body Mass Index 34.33 (90.72 kg, 162.56 cm) sv ED Course: 13:06 Patient arrived in ED. mr 13:15 Al[facility] Badillo [facility]C [facility] kb 13:15 Garret Rosenberg MD is Attending Physician. kb 13:27 Arm band placed on. sv 13:29 Triage completed. sv 13:32 Patient has correct armband on for positive identification. sv 13:39 No provider procedures requiring assistance completed. Patient did not have IV access sv during this emergency room visit. Administered Medications: 13:39 Drug: Bactrim (trimethoprim-sulfamethoxazole) (160 mg-800 mg (DS) 1 tablet Route: PO; sv 13:39 Follow up: Response: Medication administered at discharge. sv 13:39 Drug: KeFLEX (cephalexin) 500 mg Route: PO; sv 13:39 Follow up: Response: Medication administered at discharge. sv Outcome: 13:33 Discharge ordered by MD. kb 13:39 Patient left the ED. sv 13:39 Discharged to home ambulatory. sv 13:39 Condition: stable 13:39 Discharge instructions given to patient, Instructed on discharge instructions, follow up and referral plans. medication usage, wound care, Demonstrated understanding of instructions, follow-up care, medications, wound care, Prescriptions given X 2. Signatures: Alissa Badillo FNP-C FNP-Ckb Verde, Stephanie, RN RN JonesKelsie rawls Corrections: (The following items were deleted from the chart) 13:32 13:30 90.72 kg; Height 5 ft. 4 in.; BMI: 34.3; Pain 0/10; sv sv
--- NOTE | 2020-09-20 13:34 | EDPHYS ---
Physician Documentation [facility] Name: Renée Keita Age: 34 yrs Sex: Female : 1985 Arrival Date: 09/20/2020 Time: 13:06 Bed Waiting Private MD: ED Physician Garret Rosenberg HPI: 09/20 13:49 This 34 yrs old Female presents to ER via Ambulatory with complaints of kb Abscess. 13:49 The patient presents with an abscess of the suprapubic area. Description: draining, kb erythematous, swollen. Onset: The symptoms/episode began/occurred 1.5 week(s) ago. Possible cause(s): spider bite. Associated signs and symptoms: Pertinent positives: drainage, erythema, swelling. Modifying factors: the symptoms are alleviated by nothing, the symptoms are aggravated by pressure, squeezing the lesion and expressing the contents, touching. Severity of symptoms: At their worst the symptoms were moderate, in the emergency department the symptoms are unchanged. The patient has not experienced similar symptoms in the past. The patient has not recently seen a physician. Pt reports spider bite 1.5 weeks ago that has turned into staph. 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 Historical: - Allergies: 13:29 No Known Allergies; sv - PMHx: 13:29 psoriasis; sv - Immunization history:: Client reports having NOT received the Covid vaccine. - Social history:: Smoking status: Patient denies any tobacco usage or history of. ROS: 13:48 Constitutional: Negative for fever, chills, and weight loss. kb 13:48 Skin: Positive for abscess, of the suprapubic area. 13:48 All other systems are negative. Exam: 13:48 Constitutional: This is a well developed, well nourished patient who is awake, alert, kb and in no acute distress. Head/Face: Normocephalic, atraumatic. ENT: Moist Mucous membranes Respiratory: Respirations even and unlabored. No increased work of breathing, no retractions or nasal flaring. MS/ Extremity: Pulses equal, no cyanosis. Neurovascular intact. Full, normal range of motion. Neuro: Awake and alert, GCS 15, oriented to person, place, time, and situation. Moves all extremities. Normal gait. Psych: Awake, alert, with orientation to person, place and time. Behavior, mood, and affect are within normal limits. 13:48 Skin: abscess, that is moderate sized, of the suprapubic area, with drainage, that is purulent, with induration. Vital Signs: 13:30 BP 122 / 72; Pulse 85; Resp 16; Temp 97.3; Pulse Ox 97% ; Weight 90.72 kg; Height 5 ft. sv 4 in. (162.56 cm); Pain 0/10; 13:30 Body Mass Index 34.33 (90.72 kg, 162.56 cm) sv MDM: 13:33 Patient medically screened. kb 13:48 Data reviewed: vital signs, nurses notes. Data interpreted: Pulse oximetry: on room air kb is 97 %. Interpretation: normal. Counseling: I had a detailed discussion with the patient and/or guardian regarding: the historical points, exam findings, and any diagnostic results supporting the discharge/admit diagnosis, the need for outpatient follow up, a family practitioner, to return to the emergency department if symptoms worsen or persist or if there are any questions or concerns that arise at home. 13:48 ED course: Abscess already opened. Expressed moderate amount of purulent drainage.. kb Administered Medications: 13:39 Drug: Bactrim (trimethoprim-sulfamethoxazole) (160 mg-800 mg (DS) 1 tablet Route: PO; sv 13:39 Follow up: Response: Medication administered at discharge. sv 13:39 Drug: KeFLEX (cephalexin) 500 mg Route: PO; sv 13:39 Follow up: Response: Medication administered at discharge. sv Disposition: 15:33 Co-signature as Attending Physician, Garret Rosenberg MD. rn Disposition Summary: 09/20/20 13:33 Discharge Ordered Location: Home kb Condition: Stable kb Diagnosis - Cutaneous abscess of abdominal wall kb Followup: kb - With: Emergency Department - When: As needed - Reason: Worsening of condition Followup: kb - With: Private Physician - When: 2 - 3 days - Reason: Recheck today's complaints, Continuance of care, Re-evaluation by your physician Discharge Instructions: - Skin Abscess, Owio-cr-Cefa kb - Discharge Summary Sheet sv Forms: - Medication Reconciliation Form kb - Thank You Letter kb - Work release form sv - Antibiotic Education kb - Prescription Opioid Use kb Prescriptions: - Cephalexin 500 mg Oral Capsule - take 1 capsule by ORAL route every 8 hours for 10 days; 30 capsule; Refills: 0, kb Product Selection Permitted - Bactrim DS 800-160 mg Oral Tablet - take 1 tablet by ORAL route every 12 hours for 10 days; 20 tablet; Refills: 0, kb Product Selection Permitted Signatures: Alissa Badillo FNP-C FNP-Ckb Verde, Stephanie, RN RN sv Garret Rosenberg MD MD rn
[2020-09-20 13:47] VITALS: BP 122/72; TEMP 97.3; O2SAT 97
[2020-09-20] MEDS ORDERED: SMZ./TMP. 800/160 MG TABLET ONE (13:56)
[2020-09-20] MEDS ORDERED: CEPHALEXIN 250 MG CAP ONE (13:56)
== END 2020-09-20 13:39 | disposition home or self-care (01) ==
LOC: ER 13:04
DX: L02.211 Cutaneous abscess of abdominal wall (principal)
CPT/HCPCS: 99283

== ENCOUNTER 2020-11-24 03:44 | Emergency (ER) | payer SELFPAY ==
--- OUTSIDE RECORDS SUMMARY | 2020-11-24 03:47 | XMS REPORT | Continuity of Care Document ---
:1985 Author Organization [facility] t Address [address] [place] [id number] Care Team Providers Name Role Phone Unavailable Unavailable Unavailable Problems This patient has no known problems. Allergies, Adverse Reactions, Alerts This patient has no known allergies or adverse reactions. Medications This patient has no known medications. Procedures This patient has no known procedures. Encounters Start End Encounter Admission Attending Care Care Encounter Source Date/Time Date/Time Type Type Clinicians Facility Department ID 2016-04-14 2016[facility]04[id number] 14:30:00 14:30:00 00 junior Mora Results This patient has no known results.
--- NOTE | 2020-11-24 04:34 | EDPHYS ---
Physician Documentation 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 - Social history:: Smoking status: unknown. Vital Signs: 03:56 BP 110 / 72; Pulse 86; Resp 18 S; Temp 98.2(O); Pulse Ox 97% on R/A; Weight 90.72 kg bb (R); Height 5 ft. 4 in. (162.56 cm) (R); 03:56 Body Mass Index 34.33 (90.72 kg, 162.56 cm) bb MDM: 04:32 Data reviewed: vital signs, nurses notes. Medical screen evaluation completed. EMTALA tw4 emergency medical condition absent. Special discussion: I discussed with the patient/guardian in detail that at this point there is no indication for admission to the hospital. It is understood, however, that if the symptoms persist or worsen the patient needs to return immediately for re-evaluation. 04:33 Patient medically screened. tw4 Administered Medications: No medications were administered Disposition Summary: 11/24/20 04:33 Discharge Ordered Location: Home tw4 Problem: new tw4 Symptoms: have improved tw4 Condition: Stable tw4 Diagnosis - Viral infection, unspecified tw4 Followup: tw4 - With: Private Physician - When: Upon discharge from the Emergency Department - Reason: Recheck today's complaints, Continuance of care, Re-evaluation by your physician Discharge Instructions: - Discharge Summary Sheet tt3 Forms: - Medication Reconciliation Form tw4 - Work release form tt3 - Thank You Letter tw4 - Antibiotic Education tw4 - Prescription Opioid Use tw4 Addendum: 11/25/2020 23:16 Addendum: History of present illness: Patient is a 35-year-old female comes emerged t w4 part with complaint of body aches fever runny nose. Patient states she is concerned she exposed Covid. Patient states she has occasional shortness of breath with a nonproductive cough. Patient has abdominal pain nausea vomiting. Patient denies any any fevers or chills. Patient denies any back pain dysuria. There are no other complaints there is no recent travel. Addendum: Review of systems Constitutional: Positive for body aches and fatigue HEENT: Negative for visual changes negative for sore throat negative for ear pain negative for ear discharge Respiratory: Positive for shortness of breath positive for cough, negative for dyspnea on exertion Cardiac: Negative for chest pain negative for dyspnea on exertion negative for palpitations Abdomen negative for abdominal pain negative for nausea vomiting diarrhea negative for rectal bleeding Extremities: Negative for injury or edema Neurologic: Negative for headache negative for seizures negative for weakness or numbness. Addendum: Physical exam General: Patient is a well-nourished well-developed female no apparent distress HEENT: Pupils equal round reactive to light extraocular movements intact Neck: Supple nontender Respiratory: No respiratory distress lung sounds clear to auscultation bilaterally Cardiac: regular rate and rhythm, normal S1 and 2, no murmurs or gallops Abdomen soft nontender normal bowel sounds Extremities: Nontender no edema Neurologic alert and oriented x3 cranial nerves grossly intact, strength grossly intact sensation grossly intact gait normal. Signatures: Dianna Ospina, Luke Huynh RN, MD MD tw4
--- NOTE | 2020-11-24 04:34 | ER ---
Nurse's Notes [facility] Name: Renée Keita Age: 35 yrs Sex: Female : 1985 Arrival Date: 11/24/2020 Time: 03:46 Bed Waiting Private MD: Diagnosis: Viral infection, unspecified Presentation: 11/24 03:56 Chief complaint: Patient states: she has been feeling bad the last couple of days body bb aches, fever yesterday, runny nose, shortness of breath, fatigue. Coronavirus screen: fever, headache, muscle pain. Ebola Screen: No symptoms or risks identified at this time. Initial Sepsis Screen: Does the patient meet any 2 criteria? No. Patient's initial sepsis screen is negative. Does the patient have a suspected source of infection? No. Patient's initial sepsis screen is negative. Risk Assessment: Do you want to hurt yourself or someone else? Patient reports no desire to harm self or others. Onset of symptoms was November 22, 2020. 03:56 Method Of Arrival: Ambulatory bb 03:56 Acuity: KAMILA 4 bb 04:[address] Spann in triage for pt evaluation. bb Triage Assessment: 03:58 General: Appears in no apparent distress. Behavior is calm, cooperative. Pain: bb Complains of pain in headache. Neuro: Level of Consciousness is awake, alert, obeys commands, Oriented to person, place, time, situation. Cardiovascular: Capillary refill < 3 seconds Patient's skin is warm and dry. Respiratory: Respiratory effort is even, unlabored, Respiratory pattern is regular. GI: Abdomen is round. Derm: Skin is pink, warm \T\ dry. Musculoskeletal: Circulation, motion, and sensation intact. 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 - Social history:: Smoking status: unknown. Assessment: 04:00 Reassessment: No changes from previously documented assessment. Patient is alert, bb oriented x 3, equal unlabored respirations, skin warm/dry/pink. see triage assessment. 04:21 Reassessment: pt received medical screening exam by ED provider and choose to leave community resources given pt ambulated with steady gait to exit. Vital Signs: 03:56 BP 110 / 72; Pulse 86; Resp 18 S; Temp 98.2(O); Pulse Ox 97% on R/A; Weight 90.72 kg bb (R); Height 5 ft. 4 in. (162.56 cm) (R); 03:56 Body Mass Index 34.33 (90.72 kg, 162.56 cm) ED Course: 03:46 Patient arrived in ED. 03:58 Triage completed. bb 03:58 Arm band placed on. bb 04:31 Luke Spann MD is Attending Physician. tw4 Administered Medications: No medications were administered Outcome: 04:33 Discharge ordered by . tw4 04:34 Patient left the ED. bb Signatures: Dianna Ospina RN RN bb Luke Spann MD MD tw4 Melvi Palacio
[2020-11-24 04:47] VITALS: BP 110/72; TEMP 98.2; O2SAT 97
== END 2020-11-24 04:34 | disposition home or self-care (01) ==
LOC: ER 03:44
DX: B34.9 Viral infection, unspecified (principal)
CPT/HCPCS: 99281

== ENCOUNTER 2021-05-28 00:24 | Emergency (ER) | payer SELFPAY ==
--- OUTSIDE RECORDS SUMMARY | 2021-05-28 00:27 | XMS REPORT | Continuity of Care Document ---
:1985 Author Organization [facility] t Address [address] [place] [address] Dr. Goldstein. [address] [place] [address] Care Team Providers Name Role Phone Roxie Patel DO Attending Clinician Doctor Unassigned, Name Attending Clinician Unavailable Payers Payer Name Policy Type Policy Number Effective Date Expiration Date S ource Problems Condition Condition Condition Status Onset Resolution Last Treating Co mments Source Name Details Category Date Date Treatment Clinician Date Overweight Overweight Disease Active 2012-03 Overview : Univers 04-19 Formattin ity of 00:00: g of this [place] 00 note Medical might be Branch different from the original. 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 (event) [place] Tobacco use and 2020-10-08 2020-10-08 Never used Universit y of exposure 00:00:00 00:00:00 [facility] Alcohol intake 2020-10-08 2020-10-08 Current drinker Unive rsity of 00:00:00 00:00:00 of alcohol [facility] (finding) [place] Alcohol Comment 2012-07-01 2012-07-01 1 x per month Univer sity of 00:00:00 00:00:00 [facility] Sex [birth year] Universit y of 00:00:00 00:00:00 [facility] Smoking Status Start Date Stop Date Source Never smoker [facility] Medications Ordered Filled Start Stop Current Ordering Indication Dosage Frequency Signature Comments Components Source Medication Medication Date Date Medication? Clinician (SIG) Name Name naproxen Yes [id number] 500mg Take 1 Un sasha 500 mg 7-26 tablet by ity of tablet 00:00: mouth 2 [place] 00 (two) Medical times Branch daily with meals. amoxicillin 0 2020- No [id number] 875mg Take 1 Univers 875 mg 7-26 08-06 tablet by ity of tablet 00:00: 04:59 mouth 2 [place] 00 :00 (two) Medical times Branch daily for 10 days. phentermine 2012-03 Yes 37.5mg Take 37.5 Univers (ADIPEX-P) 2-04 mg by ity of 37.5 mg 16:21: mouth [place] tablet 15 daily with Medical breakfast. Branch phentermine 2012-03 Yes 37.5mg Take 37.5 Univers (ADIPEX-P) 2-04 mg by ity of 37.5 mg 16:21: mouth [place] tablet 15 daily with Medical breakfast. Branch levonorgest 2012-03 Yes [id number] 1{devic 1 Device Univers rel 2-03 e} by ity of (MIRENA) 20 23:49: Intrauteri [place] mcg/24 hour 43 ne route Medi elkin (5 years) once now. Branc h IUD levonorgest 2012-03 Yes [id number] 1{devic 1 Device Univers rel 2-03 e} by ity of (MIRENA) 20 23:49: Intrauteri [place] mcg/24 hour 43 ne route Medi elkin (5 years) once now. Branc h IUD Immunizations Ordered Filled Immunization Date Status Comments Sourc e Immunization Name Name Influenza Virus 2008-05-03 Completed Universit y of Vaccine 00:00:00 [facility] Influenza Virus 2008-05-03 Completed Universit y of Vaccine 00:00:00 [facility] Rubella 2007-10-26 Completed University of 00:00:00 [facility] Rubella 2007-10-26 Completed University of 00:00:00 [facility] Td 1998-03-16 Completed University of 00:00:00 [facility] Td 1998-03-16 Completed University of 00:00:00 [facility] Vital Signs Vital Name Observation Time Observation Value Comments Source Systolic blood 2020-10-08 21:31:00 116 mm[Hg] Univer sity of pressure [facility] Diastolic blood 2020-10-08 21:31:00 69 mm[Hg] Unive rsity of pressure [facility] Heart rate 2020-10-08 21:31:00 59 /min [facility] Body temperature 2020-10-08 21:31:00 37.28 Ariadna [facility] Respiratory rate 2020-10-08 21:31:00 16 /min [facility] Body height 2020-10-08 21:31:00 162.6 cm [facility] Body weight 2020-10-08 21:31:00 90.719 kg [facility] BMI 2020-10-08 21:31:00 34.33 kg/m2 [facility] Oxygen saturation in 2020-10-08 21:31:00 94 /min [facility] Arterial blood by [facility] Pulse oximetry [place] Procedures Procedure Date / Time Performed Performing Clinician [facility] e POCT TEST 2020-10-08 21:38:00 Radha Patel [facility] CONSENT/REFUSAL FOR 2020-10-08 21:18:59 Doctor Unassigned, No Un [facility] DIAGNOSIS AND Name [facility] TREATMENT NOTICE OF PRIVACY 2020-10-08 21:18:38 Doctor Unassigned, No Univ [facility] PRACTICES Name [facility] Encounters Start End Encounter Admission Attending Care Care Encounter Source Date/Time Date/Time Type Type Clinicians Facility Department ID 2020-10-08 2020-10-08 Emergency Jorge [facility] [id number] Univers 16:35:00 17:12:00 Radha Acosta [id number] [facility] [id number] [facility] [id number] Medi elkin 084 Branch 2020-10-08 2020-10-08 Emergency X [facility] ERT [id number] Univers 16:19:00 16:19:00 star [facility] 2020-10-08 2020-10-08 Orders Doctor MUÑOZ [id number] 00:00:00 00:00:00 Only Unassigned, SUSANA [id number] ity of [place] [facility] [id number] Yeyo as [id number] [place] [id number] Branch 2016-04-14 2016-04-14 Outpatient [facility] [id number] Memoria 14:30:00 14:30:00 00 l [place] Results Test Description Test Time Test Comments Results Result Comments Source CBC W/AUTO DIFF WITH PLATELETS 2021-04-18 03:06:39 Test Item Value Reference Range Interpretation Comme nts WBC (test code = 1001) 7.3 K/UL 3.5-11.0 RBC (test code = 1002) 4.21 M/UL 3.80-5.40 HEMOGLOBIN (test code = 12.9 G/DL 11.5-15.5 1003) HEMATOCRIT (test code = 37.7 % 34.0-45.0 1004) MCV (test code = 1005) 89.5 fL 80.0-99.0 MCH (test code = 1006) 30.6 PG 25.0-33.0 MCHC (test code = 1007) 34.2 G/DL 31.0-36.0 RDW (test code = 1038) 13.1 % 11.5-15.0 NEUTROPHILS (test code = 54.6 % 1008) LYMPHOCYTES (test code = 37.2 % 1010) MONOCYTES (test code = 6.7 % 1011) EOSINOPHILS (test code = 1.0 % 1012) BASOPHILS (test code = 0.4 % 1013) IMMATURE GRANULOCYTES (test 0.1 % code = 1036) NUCLEATED RBCS (test code = 0.0 /100 WBC'S See_Comment [Automated message] The 1065) system which ge nerated this result transmit butch reference range: 0.0. The reference range was not u sed to interpret this result as normal/abnormal . PLATELET COUNT (test code = 231 K/UL 057-986 2715) ABSOLUTE NEUTROPHILS (test 4.00 K/UL 1.50-7.50 code = 1066) ABSOLUTE LYMPHOCYTES (test 2.73 K/UL 1.00-4.00 code = 1067) ABSOLUTE MONOCYTES (test 0.49 K/UL 0.20-1.00 code = 1068) ABSOLUTE EOSINOPHILS (test 0.07 K/UL 0.00-0.50 code = 1040) ABSOLUTE BASOPHILS (test 0.03 K/UL 0.00-0.20 code = 1069) ABS IMMATURE GRANULOCYTES 0.01 K/UL 0.00-0.10 (test code = 1020) ABS NUCLEATED RBCS (test 0.00 K/UL 0.00-0.11 UNLESS OTHERWISE code = 88760) INDICATED, ALL TESTING PERFORMED [facility]. 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 CLIA NUMBER [id number] CAP ACCREDITATION N O. [id number] CBC W/AUTO DIFF WITH [id number] 12:11:11 Test Item Value Reference Range Interpretation Comments WBC (test code = TEST NOT 3.5-11.0 Unable to p erform 1001) PERFORMED K/UL testing, spec imen not received.Charge s adjusted as applicable. RBC (test code = TEST NOT 3.80-5.40 1002) PERFORMED M/UL HEMOGLOBIN (test code TEST NOT 11.5-15.5 = 1003) PERFORMED G/DL HEMATOCRIT (test code TEST NOT 34.0-45.0 = 1004) PERFORMED % MCV (test code = TEST NOT 80.0-99.0 1005) PERFORMED fL MCH (test code = TEST NOT 25.0-33.0 1006) PERFORMED PG MCHC (test code = TEST NOT 31.0-36.0 1007) PERFORMED G/DL RDW (test code = TEST NOT 11.5-15.0 1038) PERFORMED % NEUTROPHILS (test TEST NOT code = 1008) PERFORMED % BANDS (test code = TEST NOT 0.0-8.0 1009) PERFORMED % LYMPHOCYTES (test TEST NOT code = 1010) PERFORMED % MONOCYTES (test code TEST NOT = 1011) PERFORMED % EOSINOPHILS (test TEST NOT code = 1012) PERFORMED % BASOPHILS (test code TEST NOT = 1013) PERFORMED % IMMATURE GRANULOCYTES TEST NOT (test code = 1036) PERFORMED % METAMYELOCYTES (test TEST NOT See_Comment [Autom ated code = 1061) PERFORMED % message] The system which generated this result transmitted reference range : 0.0. The reference range was not used to interpret this result as normal/abnormal . MYELOCYTES (test code TEST NOT See_Comment [Auto mated = 1062) PERFORMED % message] The system which generated this result transmitted reference range : 0.0. The reference range was not used to interpret this result as normal/abnormal . PROMYELOCYTES (test TEST NOT See_Comment [Automa butch code = 1063) PERFORMED % message] The system which generated this result transmitted reference range : 0.0. The reference range was not used to interpret this result as normal/abnormal . BLASTS (test code = TEST NOT See_Comment [Automa butch 1064) PERFORMED % message] The system which generated this result transmitted reference range : 0.0. The reference range was not used to interpret this result as normal/abnormal . NUCLEATED RBCS (test TEST NOT See_Comment [Autom ated code = 1065) PERFORMED /100 message] The WBC'S system which generated this result transmitted reference range : 0.0. The reference range was not used to interpret this result as normal/abnormal . PLATELET COUNT (test TEST NOT 130-400 code = 1015) PERFORMED K/UL ABSOLUTE NEUTROPHILS TEST NOT 1.50-7.50 (test code = 1066) PERFORMED K/UL ABSOLUTE LYMPHOCYTES TEST NOT 1.00-4.00 (test code = 1067) PERFORMED K/UL ABSOLUTE MONOCYTES TEST NOT 0.20-1.00 (test code = 1068) PERFORMED K/UL ABSOLUTE EOSINOPHILS TEST NOT 0.00-0.50 (test code = 1040) PERFORMED K/UL ABSOLUTE BASOPHILS TEST NOT 0.00-0.20 (test code = 1069) PERFORMED K/UL ABS IMMATURE TEST NOT 0.00-0.10 GRANULOCYTES (test PERFORMED K/UL code = 1020) ABS NUCLEATED RBCS TEST NOT 0.00-0.11 (test code = 19678) PERFORMED K/UL COMMENTS (test code = TEST NOT 1016) PERFORMED COMPREHENSIVE METABOLIC [id number] 04:59:13 Test Item Value Reference Range Interpretation Comments GLUCOSE (test code = 99 MG/DL 70-99 2216) BUN (test code = 14 MG/DL 09-02) CREATININE (test 0.78 MG/DL 0.60-1.30 code = 2214) eGFR (2020 CKD-EPI) 100 >60 (test code = 60795) ML/MIN/1.73 CALC BUN/CREAT (test 18 RATIO 6-28 code = 2235) SODIUM (test code = 146 MEQ/L 014-679 9733) POTASSIUM (test code 4.9 MEQ/L 3.5-5.4 = 2227) CHLORIDE (test code 108 MEQ/L 95-107 H = 2214) CARBON DIOXIDE (test 29 MEQ/L 19-31 code = 2206) CALCIUM (test code = 9.9 MG/DL 8.5-10.5 2208) PROTEIN, TOTAL (test 8.3 G/DL 6.1-8.3 code = 222) ALBUMIN (test code = 4.4 G/DL 3.5-5.2 2200) CALC GLOBULIN (test 3.9 G/DL 1.9-3.7 H code = 2240) CALC A/G RATIO (test 1.1 RATIO 1.0-2.6 code = 223) BILIRUBIN, TOTAL 0.6 MG/DL See_Comment [Automated message] (test code = 2207) The syste [employer] which generated this result transmitted ref erence range: <=1.2. T he reference range was not used to int erpret this result as normal/abnormal . ALKALINE PHOSPHATASE 77 U/L 40-112 (test code = 220) AST (test code = 29 U/L 9-40 2217) ALT (test code = 26 U/L 5-40 UNLE SS 2218) OTHERWISE INDIC ATED, ALL TESTING PER FORMED [facility], [facility]. [address] [place] [address] LABORATORY DIRE CTOR: LUIZ PRICE M.D. CLIA NUMBER [id number] CAP ACCREDITATION N O. [id number] POCT [id number] 21:38:00 Test Item Value Reference Range Interpretation Comments POCT PREG (test code = 1605) negative On board controls acceptable with present C Line (test code = 3574) POCT PREG LOT # (test code = 3574) [id number] POCT PREG TEST DATE (test 03/15/22 code = 3576) Lab Interpretation (test code = Normal 12617-1) [facility]
[2021-05-28 02:09] LABS: Absolute Lymphocytes (CBC) 2.1 K/uL (0.7-4.9); MPV 8.6 fL (7.6-11.3); Protime INR 0.98; RBC Red Blood Cell Count 4.14 M/uL (3.86-4.86)
[2021-05-28 02:31] LABS: ALT/SGPT 55 U/L (12-78); AST/SGOT 33 U/L (15-37); Albumin 3.3 g/dL (3.4-5.0); Alkaline Phosphatase 74 U/L (45-117); BUN Blood Urea Nitrogen 17 mg/dL (7-18); Bicarbonate 28 mmol/L (21-32); Bilirubin Total 0.3 mg/dL (0.2-1.0); Creatine Phosphokinase 214 U/L (26-192); Glucose Level 103 mg/dL (74-106); Magnesium 2.1 mg/dL (1.8-2.4); NT PRO-BNP 38 pg/mL (<125); Potassium 3.4 mmol/L (3.5-5.1); Protein, Total 7.9 g/dL (6.4-8.2); Sodium Level 145 mmol/L (136-145)
[2021-05-28] MEDS ORDERED: NA CHLORIDE 0.9% 1,000 ML ONE (02:32)
[2021-05-28 02:34] LABS: Bilirubin Direct < 0.1 mg/dL (0-0.2); Troponin High Sensitivity < 3.00 pg/mL (<58.9)
[2021-05-28 02:43] LABS: Urine Bacteria <20 /HPF (<20); Urine RBC <5 /HPF (NONE SEEN); Urine Urothelial Cells <5 /HPF (NONE SEEN)
[2021-05-28 02:45] LABS: Barbiturates NEGATIVE (NEGATIVE); Benzodiazepines NEGATIVE (NEGATIVE); Cocaine NEGATIVE (NEGATIVE); METHAMPHETAM NEGATIVE (NEGATIVE); Methadone NEGATIVE (NEGATIVE); Opiates NEGATIVE (NEGATIVE); Phencyclidine NEGATIVE (NEGATIVE); THC Cannibis NEGATIVE (NEGATIVE)
[2021-05-28] MEDS ORDERED: ONDANSETRON 4 MG/2 ML VIAL ONE (03:20)
[2021-05-28] MEDS ORDERED: MORPHINE 2 MG/ML SYR ONE ×2 (03:20→04:13)
--- NOTE | 2021-05-28 06:19 | ER ---
Nurse's Notes [facility] Name: Renée Keita Age: 35 yrs Sex: Female : 1985 Arrival Date: 05/28/2021 Time: 00:27 Bed 3 Private MD: Diagnosis: Chest pain, unspecified Presentation: 05/28 00:57 Chief complaint: Patient states: "I am having chest pain that started yesterday (05/26) as6 that goes down my right arm and through to my shoulder blade". Coronavirus screen: At this time, the client does not indicate any symptoms associated with coronavirus-19. Ebola Screen: No symptoms or risks identified at this time. Initial Sepsis Screen: Does the patient meet any 2 criteria? No. Patient's initial sepsis screen is negative. Does the patient have a suspected source of infection? No. Patient's initial sepsis screen is negative. Risk Assessment: Do you want to hurt yourself or someone else? Patient reports no desire to harm self or others. Onset of symptoms was May 26, 2021. 00:57 Method Of Arrival: Ambulatory as6 00:57 Acuity: KAMILA 3 as6 Triage Assessment: 01:03 General: Appears uncomfortable, Behavior is calm, cooperative. Pain: Complains of pain as6 in chest Pain radiates to right arm. Cardiovascular: Reports chest pain. Respiratory: Reports shortness of breath. 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 - Social history:: Smoking status: Patient denies any tobacco usage or history of. Screenin:00 Abuse screen: Denies threats or abuse. Nutritional screening: No deficits noted. ke1 Tuberculosis screening: No symptoms or risk factors identified. Fall Risk No fall in past 12 months (0 pts). No secondary diagnosis (0 pts). IV access (20 points). Ambulatory Aid- None/Bed Rest/Nurse Assist (0 pts). Gait- Normal/Bed Rest/Wheelchair (0 pts) Mental Status- Oriented to own ability (0 pts). Total Turner Fall Scale indicates No Risk (0-24 pts). Assessment: 01:30 General: Appears uncomfortable, Behavior is cooperative. Pain: Pain: Complains of pain ke1 in right lateral posterior chest. Neuro: Level of Consciousness is awake, alert, Oriented to person, place, time, situation. Cardiovascular: Heart tones S1 S2 Capillary refill < 3 seconds Patient's skin is warm and dry. Respiratory: Airway is patent Respiratory effort is even, unlabored, Respiratory pattern is regular, symmetrical, Breath sounds are clear bilaterally. GI: No deficits noted. : No deficits noted. EENT: No deficits noted. Derm: Skin scaly patches on skin due to psoriasis. Musculoskeletal: No deficits noted. 02:30 Reassessment: No changes from previously documented assessment. Patient is alert, ke1 oriented x 3, equal unlabored respirations, skin warm/dry/pink. 03:40 Reassessment: Patient states symptoms have improved. ke1 04:45 Reassessment: Patient states feeling better. ke1 06:00 Reassessment: No changes from previously documented assessment. Patient is alert, ke1 oriented x 3, equal unlabored respirations, skin warm/dry/pink. Patient states feeling better. Patient states symptoms have improved. Vital Signs: 00:57 BP 98 / 76; Pulse 76; Resp 18 S; Temp 98.2(TE); Pulse Ox 99% on R/A; Weight 90.72 kg as6 (R); Height 5 ft. 4 in. (162.56 cm) (R); Pain 10/10; 01:30 BP 105 / 88; Pulse 72; Resp 18; Pulse Ox 97% on R/A; ke1 02:15 BP 99 / 63; Pulse 70; Resp 18; Pulse Ox 96% on R/A; ke1 03:02 BP 111 / 67; Pulse 60; Resp 19; ke1 04:00 BP 101 / 64; Pulse 53; Resp 18; Pulse Ox 99% on R/A; ke1 06:43 BP 120 / 79; Pulse 63; Resp 17; Pulse Ox 98% on R/A; ke1 00:57 Body Mass Index 34.33 (90.72 kg, 162.56 cm) as6 ED Course: 00:27 Patient arrived in ED. es 01:00 Bed in low position. Call light in reach. ke1 01:02 Triage completed. as6 01:03 Arm band placed on. as6 01:14 EKG completed in triage. Results shown to MD. as6 01:30 Reagan Scott MD is Attending Physician. 7 01:30 Marcos Rutledge, EVANGELINA is Primary Nurse. ke1 01:59 Missed attempt(s): 20 gauge in left forearm. ke1 02:00 Inserted saline lock: 20 gauge in left antecubital area, using aseptic technique. ke1 02:01 XRAY Chest (1 view) In Process Unspecified. EDMS 05:07 CT Chest For PE Angio In Process Unspecified. EDMS 06:43 No provider procedures requiring assistance completed. ke1 06:50 IV discontinued. ke1 Administered Medications: 02:33 Drug: NS 0.9% 1000 ml Route: IV; Rate: 1000 ml; Site: left antecubital; ke1 03:30 Follow up: IV Status: Completed infusion ke1 03:22 Drug: Zofran (Ondansetron) 4 mg Route: IVP; Site: left antecubital; ke1 05:40 Follow up: Response: No adverse reaction; Nausea is decreased ke1 03:23 Drug: morphine 2 mg Route: IVP; Site: left antecubital; ke1 03:45 Follow up: Response: Pain is decreased; Pain is unchanged, physician notified ke1 04:23 Drug: morphine 2 mg Route: IVP; Site: left antecubital; ke1 04:40 Follow up: Response: Pain is decreased ke1 04:23 Drug: NS 0.9% 1000 ml Route: IV; Rate: 1000 ml; Site: left antecubital; ke1 06:54 Follow up: IV Status: Completed infusion ke1 Outcome: 06:18 Discharge ordered by . [email or web address] 06:50 Discharged to home ambulatory. ke1 06:50 Condition: good 06:50 Discharge instructions given to patient. 06:54 Patient left the ED. ke1 Signatures: Dispatcher [employer] Giovanna Lou Maurice, MD MD 7 Karan Holder, EVANGELINA HUTCHINSON as6 Marcos Rutledge RN RN ke1 Corrections: (The following items were deleted from the chart) 06:52 04:30 Reassessment: Patient states feeling better. ke1 ke1 06:53 03:30 Reassessment: Patient states symptoms have improved. ke1 ke1
--- NOTE | 2021-05-28 06:19 | EDPHYS ---
Physician Documentation [facility] Name: Renée Keita Age: 35 yrs Sex: Female : 1985 Arrival Date: 05/28/2021 Time: 00:27 Bed 3 Private MD: ED Physician Reagan Scott HPI: 05/28 01:51 This 35 yrs old Female presents to ER via Ambulatory with complaints of rt side pain mh7 started in heart. 01:51 The patient or guardian reports chest pain that is located primarily in the anterior mh7 chest wall, right. 01:51 The pain radiates to the right arm. mh7 01:51 Associated signs and symptoms: Pertinent negatives: abdominal pain, cough, diaphoresis, mh7 dizziness, headache, lower extremity pain, lower extremity swelling, lightheadedness, nausea, near syncope, palpitations, recent travel, shortness of breath, syncope, vomiting. The chest pain is described as sharp. Duration: The patient or guardian reports multiple episodes, that are intermittent, that wax and wane, with no pattern. Modifying factors: The symptoms are alleviated by nothing. the symptoms are aggravated by movement, palpation of area. Severity of pain: At its worst the pain was moderate yesterday, in the emergency department the pain is unchanged. 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 - Social history:: Smoking status: Patient denies any tobacco usage or history of. ROS: 01:51 Constitutional: Negative for fever, chills, and weight loss, Eyes: Negative for injury, mh7 pain, redness, and discharge, ENT: Negative for injury, pain, and discharge, Neck: Negative for injury, pain, and swelling, Respiratory: Negative for shortness of breath, cough, wheezing, and pleuritic chest pain, Abdomen/GI: Negative for abdominal pain, nausea, vomiting, diarrhea, and constipation, Back: Negative for injury and pain, : Negative for injury, bleeding, discharge, and swelling, Skin: Negative for injury, rash, and discoloration, Neuro: Negative for headache, weakness, numbness, tingling, and seizure, Psych: Negative for depression, anxiety, suicide ideation, homicidal ideation, and hallucinations, Allergy/Immunology: Negative for hives, rash, and allergies, Endocrine: Negative for neck swelling, polydipsia, polyuria, polyphagia, and marked weight changes, Hematologic/Lymphatic: Negative for swollen nodes, abnormal bleeding, and unusual bruising. Exam: 01:51 Constitutional: This is a well developed, well nourished patient who is awake, alert, mh7 and in no acute distress. Head/Face: Normocephalic, atraumatic. Eyes: Pupils equal round and reactive to light, extra-ocular motions intact. Lids and lashes normal. Conjunctiva and sclera are non-icteric and not injected. Cornea within normal limits. Periorbital areas with no swelling, redness, or edema. Neck: Trachea midline, no thyromegaly or masses palpated, and no cervical lymphadenopathy. Supple, full range of motion without nuchal rigidity, or vertebral point tenderness. No Meningismus. 01:51 Cardiovascular: Regular rate and rhythm with a normal S1 and S2. No gallops, murmurs, or rubs. Normal PMI, no JVD. No pulse deficits. Respiratory: Lungs have equal breath sounds bilaterally, clear to auscultation and percussion. No rales, rhonchi or wheezes noted. No increased work of breathing, no retractions or nasal flaring. Abdomen/GI: Soft, non-tender, with normal bowel sounds. No distension or tympany. No guarding or rebound. No evidence of tenderness throughout. Back: No spinal tenderness. No costovertebral tenderness. Full range of motion. Skin: Warm, dry with normal turgor. Normal color with no rashes, no lesions, and no evidence of cellulitis. MS/ Extremity: Pulses equal, no cyanosis. Neurovascular intact. Full, normal range of motion. Neuro: Awake and alert, GCS 15, oriented to person, place, time, and situation. Cranial nerves II-XII grossly intact. Motor strength 5/5 in all extremities. Sensory grossly intact. Cerebellar exam normal. Normal gait. Psych: Awake, alert, with orientation to person, place and time. Behavior, mood, and affect are within normal limits. 01:51 Chest/axilla: Inspection: normal, Palpation: tenderness, that is moderate, of the right clavicle, anterior aspect of right upper chest and right lateral posterior chest, that totally reproduces the patient's complaints, Axilla: are normal, Lymph nodes: lymphadenopathy is not appreciated. 01:51 ECG was reviewed by the Attending Physician. 7 Vital Signs: 00:57 BP 98 / 76; Pulse 76; Resp 18 S; Temp 98.2(TE); Pulse Ox 99% on R/A; Weight 90.72 kg as6 (R); Height 5 ft. 4 in. (162.56 cm) (R); Pain 10/10; 01:30 BP 105 / 88; Pulse 72; Resp 18; Pulse Ox 97% on R/A; ke1 02:15 BP 99 / 63; Pulse 70; Resp 18; Pulse Ox 96% on R/A; ke1 03:02 BP 111 / 67; Pulse 60; Resp 19; ke1 04:00 BP 101 / 64; Pulse 53; Resp 18; Pulse Ox 99% on R/A; ke1 06:43 BP 120 / 79; Pulse 63; Resp 17; Pulse Ox 98% on R/A; ke1 00:57 Body Mass Index 34.33 (90.72 kg, 162.56 cm) as6 MDM: 06:15 Differential diagnosis: acute myocardial infarction, acute pericarditis, anxiety, mh7 coronary artery disease chest wall pain, congestive heart failure costochondritis, esophagitis, gastritis, gastroesophageal reflux disease (GERD), pulmonary embolus. HEART Score: History: Slightly Suspicious (0), ECG: Non specific repolarization disturbance / LBTB / PM (1), Age: < or = 45 years (0), Risk Factors: No Risk Factors Known (0), Troponin: < or = 1 x Normal Limit (0), Total Score = 1. Data reviewed: vital signs, nurses notes, lab test result(s), cardiac enzymes, CBC, electrolytes, urinalysis, urine drug screen, UPT: negative EKG, radiologic studies, CT scan, plain films. Data interpreted: Pulse oximetry: on room air is 99 %. Interpretation: normal. Counseling: I had a detailed discussion with the patient and/or guardian regarding: the historical points, exam findings, and any diagnostic results supporting the discharge/admit diagnosis, lab results, radiology results, the need for outpatient follow up, to return to the emergency department if symptoms worsen or persist or if there are any questions or concerns that arise at home. 06:18 [facility] screened[facility] 05/28 01:32 Order name: Basic Metabolic Panel [facility] 05/28 01:32 Order name: CBC with Diff; Complete Time: 03:07 [facility] 05/28 01:32 Order name: LFT's; Complete Time: 03:07 [facility] 05/28 01:32 Order name: Magnesium; Complete Time: 03:07 [facility] 05/28 01:32 Order name: NT PRO-BNP; Complete Time: 03:07 [facility] 05/28 01:32 Order name: PT-INR; Complete Time: 03:07 [facility] 05/28 01:32 Order name: Troponin HS; Complete Time: 03:07 [facility] 05/28 01:32 Order name: XRAY Chest (1 view) [facility] 05/28 01:32 Order name: Urine Drug Screen; Complete Time: 03:07 [facility] 05/28 01:32 Order name: Urine Microscopic Only; Complete Time: 03:07 [facility] 05/28 01:32 Order name: Basic Metabolic Panel; Complete Time: 03:07 [facility] 05/28 02:06 Order name: Creatine Phosphokinase; Complete Time: 03:07 [facility] 05/28 04:22 Order name: CT Chest For PE Angio [facility] 05/28 01:32 Order name: EKG; Complete Time: 01:32 [facility] 05/28 01:32 Order name: Cardiac monitoring; Complete Time: 02:28 [facility] 05/28 01:32 Order name: EKG - Nurse/Tech; Complete Time: 01:39 [facility] 05/28 01:32 Order name: IV Saline Lock; Complete Time: 02:00 [facility] 05/28 01:32 Order name: Labs collected and sent; Complete Time: 02:00 [facility] 05/28 01:32 Order name: O2 Per Protocol; Complete Time: 02:00 [facility] 05/28 01:32 Order name: O2 Sat Monitoring; Complete Time: 02:01 [facility] 05/28 01:32 Order name: Urine Dipstick-Ancillary (obtain specimen); Complete Time: 02:28 [facility] 05/28 01:32 Order name: Urine Test (obtain specimen); Complete Time: 02:28 7 EC:51 Rate is 79 beats/min. Rhythm is regular, Normal Sinus Rhythm with No ectopy. QRS [place] [facility] is Normal. [place] interval is normal. QRS interval is normal. QT interval is prolonged at 460 msec. No Q waves. T waves are Inverted in lead III. No ST changes noted. Clinical impression: NSR w/ Non-specific ST/T Changes. Administered Medications: 02:33 Drug: NS 0.9% 1000 ml Route: IV; Rate: 1000 ml; Site: left antecubital; ke1 03:30 Follow up: IV Status: Completed infusion ke1 03:22 Drug: Zofran (Ondansetron) 4 mg Route: IVP; Site: left antecubital; ke1 05:40 Follow up: Response: No adverse reaction; Nausea is decreased ke1 03:23 Drug: morphine 2 mg Route: IVP; Site: left antecubital; ke1 03:45 Follow up: Response: Pain is decreased; Pain is unchanged, physician notified ke1 04:23 Drug: morphine 2 mg Route: IVP; Site: left antecubital; ke1 04:40 Follow up: Response: Pain is decreased ke1 04:23 Drug: NS 0.9% 1000 ml Route: IV; Rate: 1000 ml; Site: left antecubital; ke1 06:54 Follow up: IV Status: Completed infusion ke1 Disposition Summary: 05/28/21 06:18 Discharge Ordered [facility] Problem: [facility] Symptoms: have improved [facility] Condition: Stable [facility] Diagnosis - Chest pain, unspecified [facility]up[facility] - With: Private Physician - When: 1 - 2 days - Reason: Worsening of condition, Recheck today's complaints, Continuance of care, Re-evaluation by your physician Discharge Instructions: - Discharge Summary Sheet [facility] - Chest Wall Pain, Owsf-ci-Adop 7 - Nonspecific Chest Pain, Adult, Yaon-lr-Scmy [facility] - Form - Excuse from Work, School, or Physical Activity [facility] Forms: - Medication Reconciliation Form [facility] - Thank You Letter [facility] - Antibiotic Education [facility] - Prescription Opioid Use [facility] Prescriptions: - ketorolac 10 mg Oral tablet - take 1 tablet by ORAL route every 6 hours As needed not to exceed 40 mg in mh7 24hrs; 15 tablet; Refills: 0, Product Selection Permitted - Cyclobenzaprine 10 mg Oral Tablet - take 1 tablet by ORAL route every 8 hours As needed; 15 tablet; Refills: 0, [facility] Product Selection Permitted Signatures: Dispatcher [employer] Reagan Carvajal MD MD 7 Karan Holder RN RN as6 Marcos Rutledge RN RN ke1 Corrections: (The following items were deleted from the chart) 02:06 02:04 CREATINE PHOSPHOKINASE+C.LAB.BRZ ordered. ALDAIR QUINTEROS
[2021-05-28 07:06] VITALS: TEMP 98.2
[2021-05-28 07:13] VITALS: BP 120/79; O2SAT 98
--- NOTE | 2021-05-28 10:42 | RAD REPORT ---
EXAM DESCRIPTION: RAD - Chest Single View - 05/28/2021 2:01 am CLINICAL HISTORY: 35 years, Female, CHEST PAIN COMPARISON: None. FINDINGS: Single view of the chest was obtained portable. Prior films are available for comparison. Slight decreased lung volume. The cardiomediastinal silhouette demonstrate to be unremarkable. To t he heart is not enlarged. The thoracic aorta is unremarkable. Costophrenic angles are sharp. No are as of consolidation or masses are seen. The rest of the soft tissue and bony structures demonstrate to be unremarkable. IMPRESSION: No acute cardiopulmonary process identified. Electronically signed by: Juan Richardson MD 05/28/2021 2:11 AM CDT Due to temporary technical issues with the PACS/Fluency reporting system, reports are being signed by the in house radiologists without review as a courtesy to insure prompt reporting. The interpreting radiologist is fully responsible for the content of the report.
--- NOTE | 2021-05-28 10:51 | RAD REPORT ---
EXAM DESCRIPTION: CT - Chest For Pe Angio - 05/28/2021 6:24 am CLINICAL HISTORY: CHEST PAIN COMPARISON: None Available. TECHNIQUE: CTA of the chest obtained following the uncomplicated intravenous administration of . 3-D /MIP reformatted images of the chest available for evaluation. This exam was performed according to o departmental dose-optimization program, which includes automated exposure control, adjustment of t he mA and/or kV according to patient size and/or use of iterative reconstruction technique. FINDINGS: Chest: Pulmonary arteries: Contrast bolus is adequate.No filling defects identified in the pulmonary arterie s to suggest pulmonary embolus. Dilation of the main pulmonary artery. Thyroid: No abnormalities of the visualized thyroid. Great Vessels: Great vessels have normal anatomic configuration. Thoracic Aorta: No abnormalities of the thoracic aorta identified. Heart: No cardiomegaly, significant pericardial effusion, or coronary artery atherosclerosis Lymph Nodes: No enlarged mediastinal lymph nodes identified. Esophagus: No abnormalities of the esophagus identified. Other: No additional findings. Lungs: The lung bases are out of the [id number]-ro-[id number] on provided imaging. No acute pneumonic process. M inimal dependent atelectasis. Pleura: No pleural effusion or pneumothorax. Trachea/Airways: No abnormalities of the visualized trachea or airways. Bones: No destructive osseous lesions. Upper Abdomen: Limited images of the upper abdomen demonstrate no definite abnormalities. IMPRESSION: 1. No pulmonary embolus. 2. Dilation of the main pulmonary artery. This can be seen with pulmonary arterial hypertension. Electronically signed by: Tate Henry 05/28/2021 5:59 AM CDT Due to temporary technical issues with the PACS/Fluency reporting system, reports are being signed by the in house radiologists without review as a courtesy to insure prompt reporting. The interpreting radiologist is fully responsible for the content of the report.
--- NOTE | 2021-05-29 07:25 | EKG ---
Test Date: 2021-05-28 Test Time: 00:11:00 Compliance Engineer: JENNIFER MEASUREMENT RESULTS: Intervals: Rate: 79 SC: 168 QRSD: 90 QT: 402 QTc: 460 [place]: P: 35 SC: 168 QRS: 12 T: 3 INTERPRETIVE STATEMENTS: Normal sinus rhythm Nonspecific T wave abnormality Prolonged QT Abnormal ECG Compared to ECG 09/14/2012 12:26:18 T-wave abnormality now present Prolonged QT interval now present Sinus bradycardia no longer present Ventricular premature complex(es) no longer present Electronically Signed On 05-29-21 07:22:20 CDT by Andrez Merrill
[2021-06-05 12:52] LABS: Urine Blood Negative (Negative); Urine Glucose Negative (Negative); Urine Protein Trace (Negative); Urine Specific Gravity >=1.030 (1.005-1.030); Urine pH 6.5 (5.0-7.0)
== END 2021-05-28 06:54 | disposition home or self-care (01) ==
LOC: ER 00:24
DX: R07.9 Chest pain, unspecified (principal)
CPT/HCPCS: 36415; 71045; 71275; 80048; 80076; 80307; 81003; 81015; 82550; 83735; 83880; 84484; 85025; 85610; 93005; 96361; 96374; 96375; 99284; J2270; J2405; J7030; Q9967

== ENCOUNTER 2021-06-01 10:58 | Emergency (ER) | payer SELFPAY ==
--- OUTSIDE RECORDS SUMMARY | 2021-06-01 11:00 | XMS REPORT | Continuity of Care Document ---
:1985 Author Organization [facility] t Address [address] [place] [address] Dr. [address] [place] [address] Care Team Providers Name Role Phone Roxie [...] Formattin ity of 00:00: g of this [place] 00 note Medical might be Branch different from the original. 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 Need for Need for Disease Active 2012-03 Unive rs Tdap Tdap 2-04 ity of vacc[place] Medical [place] Allergies, Adverse Reactions, Alerts Allergy Allergy Status Severity Reaction(s) Onset Inactive Treating Comm ents Source Name Type Date Date Clinician NO KNOWN Drug Active Univers ALLERGIE Class ity of S [facility] Social History Social Habit Start Date Stop Date Quantity Comments Source Exposure to Not sure University of SARS-CoV-2 [facility] (event) [place] Tobacco use and 2020-10-08 2020-10-08 Never used Universit y of exposure 00:00:00 00:00:00 [facility] Alcohol intake 2020-10-08 2020-10-08 Current drinker Unive rsity of 00:00:00 00:00:00 of alcohol [facility] (finding) [place] Alcohol Comment 2012-07-01 2012-07-01 1 x per month Univer sity of 00:00:00 00:00:00 [facility] Sex Ass[birth year] At [birth year] Universit y of 00:00:00 00:00:00 [facility] Smoking Status Start Date Stop Date Source Never smoker [facility] Medications Ordered Filled Start Stop Current Ordering Indication Dosage Frequency Signature Comments Components Source Medication Medication Date Date Medication? Clinician (SIG) Name Name naproxen Yes [id number] 500mg Take 1 Un sasha 500 mg 7-26 tablet by ity of tablet 00:00: mouth 2 [place] 00 (two) Medical times Branch daily with meals. amoxicillin 0 2020- No [id number] 875mg Take 1 Univers 875 mg 7-26 [...] with Medical breakfast. Branch levonorgest 2012-03 Yes [id number] 1{devic 1 Device Univers rel 2-03 e} by ity of (MIRENA) 20 23:49: Intrauteri [place] mcg/24 hour 43 ne route Medi elkin (5 years) once now. Branc h IUD levonorgest 2012-03 Yes [id number] 1{devic 1 Device Univers rel 2-03 e} by ity of (MIRENA) 20 23:49: Intrauteri [place] mcg/24 hour 43 ne route Medi elkin (5 years) once now. Branc h IUD Immunizations Ordered Filled Immunization Date Status Comments Sourc e Immunization Name Name Influenza Virus 2008-05-03 Completed Universit y of Vaccine 00:00:00 [facility] Influenza Virus 2008-05-03 Completed Universit y of Vaccine 00:00:00 [facility] Rubella 2007-10-26 Completed University of 00:00:00 [facility] Rubella 2007-10-26 Completed University of 00:00:00 [facility] Td 1998-03-16 Completed University of 00:00:00 [facility] Td 1998-03-16 Completed University of 00:00:00 [facility] Vital Signs Vital Name Observation Time Observation Value Comments Source Systolic blood 2020-10-08 21:31:00 116 mm[Hg] Univer sity of pressure [facility] Diastolic blood 2020-10-08 21:31:00 69 mm[Hg] Unive rsity of pressure [facility] Heart rate 2020-10-08 21:31:00 59 /min [facility] Body temperature 2020-10-08 21:31:00 37.28 [facility] Respiratory rate 2020-10-08 21:31:00 16 /min [facility] Body height 2020-10-08 21:31:00 162.6 cm [facility] Body weight 2020-10-08 21:31:00 90.719 kg [facility] BMI 2020-10-08 21:31:00 34.33 kg/m2 [facility] Oxygen saturation in 2020-10-08 21:31:00 94 /min [facility] Arterial blood by [facility] Pulse oximetry [place] Procedures Procedure Date / Time Performed Performing Clinician [facility] e POCT TEST 2020-10-08 21:38:00 Radha Patel [facility] acute hospital CONSENT/REFUSAL FOR 2020-10-08 21:18:59 Doctor Unassigned, No Un [facility] DIAGNOSIS AND Name [facility] TREATMENT NOTICE OF PRIVACY 2020-10-08 21:18:38 Doctor Unassigned, No Univ [facility] PRACTICES Name [facility] Encounters Start End Encounter Admission Attending Care Care Encounter Source Date/Time Date/Time Type Type Clinicians Facility Department ID 2020-10-08 2020-10-08 Emergency Jorge [facility] [id number] Univers 16:35:00 17:12:00 Radha Acosta [id number] star [facility] [id number] [facility] [id number] Medi [place]kin 084 Branch 2020-10-08 2020-10-08 Emergency X [facility] ERT [id number] Univers 16:19:00 16:19:00 star [facility] 2020-10-08 2020-10-08 Orders Doctor MUÑOZ [id number] 00:00:00 00:00:00 Only Unassigned, SUSANA [id number] ity of [place] [facility] [id number] Yeyo as [id number] [place] [id number] Branch 2016-04-14 2016-04-14 Outpatient [facility] [id number] Memoria 14:30:00 14:30:00 00 l Morgan [...] PLATELET COUNT (test code = 231 K/UL [phone]) ABSOLUTE NEUTROPHILS (test 4.00 K/UL 1.50-7.50 code [...] 0.00 K/UL 0.00-0.11 UNLESS OTHERWISE code = 85329) INDICATED, ALL TESTING PERFORMED [facility] PATHOLOGY FOR[facility]LY [facility], [facility]. [address] [place] [id number] JAVA DEVELOPER WITH SECURITY CLEARANCE: LUIZ STUBBS M.D. CLIA NUMBER [id number] CAP ACCREDITATION N O. [id number] CBC W/AUTO DIFF WITH [id number] 12:11:11 Test Item Value Reference Range Interpretation [...] RBCS TEST NOT 0.00-0.11 (test code = 03457) PERFORMED K/UL COMMENTS (test code = TEST NOT 1016) PERFORMED COMPREHENSIVE METABOLIC [id number] 04:59:13 Test Item Value Reference Range Interpretation Comments GLUCOSE (test code = 99 MG/DL 70-99 2216) BUN (test code = 14 MG/DL 09-02) CREATININE (test 0.78 MG/DL 0.60-1.30 code = 2214) eGFR (2020 CKD-EPI) 100 >60 (test code = 58253) ML/MIN/1.73 CALC BUN/CREAT (test 18 RATIO 6-28 code = 2235) SODIUM (test code = 146 MEQ/L 050-672 7656) POTASSIUM (test code 4.9 MEQ/L 3.5-5.4 = [...] message] (test code = 2207) The syste [employer] which generated this result transmitted ref erence range: <=1.2. T he reference range was not used to int erpret this result as normal/abnormal . ALKALINE PHOSPHATASE 77 U/L 40-112 (test code = 220) AST (test code = 29 U/L 9-40 2217) ALT (test code = 26 U/L 5-40 UNLE SS 2218) OTHERWISE INDIC ATED, ALL TESTING PER FORMED [facility], [facility]. [address] [place] [address] LABORATORY DIRE CTOR: LUIZ PRICE M.D. CLIA NUMBER [id number] CAP ACCREDITATION N O. [id number] POCT [id number] 21:38:00 Test Item Value Reference Range Interpretation Comments POCT PREG (test code = 1605) negative On board controls acceptable with present C Line (test code = 3574) POCT PREG LOT # (test code = 3577) [id number] POCT PREG TEST DATE (test 03/15/22 code = 3576) Lab Interpretation (test code = Normal 36643-2) [facility]
[2021-06-01] MEDS ORDERED: DIAZEPAM 10 MG/2 ML INJ SYRINGE ONE (11:33)
[2021-06-01] MEDS ORDERED: KETOROLAC 30 MG/ML INJ ONE (11:34)
--- NOTE | 2021-06-01 11:38 | EDPHYS ---
Physician Documentation [facility] Name: Renée Keita Age: 35 yrs Sex: Female : 1985 Arrival Date: 06/01/2021 Time: 11:00 Bed 15 Private MD: ED Physician Monique Thomas HPI: 06/01 11:33 This 35 yrs old Female presents to ER via Ambulatory with complaints of Arm Pain, ma2 Numbness Of Arm. 11:33 35-year-old female with psoriasis, presents with right scapular pain that is been ma2 intermittent for the last week, got constant yesterday, pain is worse with lifting the right arm, no trauma. She feels back pain is a muscle spasm. Patient also stated that pain is so severe that she feels numbness in the right hand. Is been going on intermittently over the last 2 days. 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 - Social history:: Smoking status: Patient denies any tobacco usage or history of. Patient/guardian denies using alcohol, street drugs, The patient lives with family. - Family history:: not pertinent. ROS: 11:33 Constitutional: Negative for fever, chills, and weight loss. ma2 11:33 All other systems are negative. Exam: 11:33 Constitutional: This is a well developed, well nourished patient who is awake, alert, ma2 and in no acute distress. Head/Face: Normocephalic, atraumatic. Eyes: Pupils equal round and reactive to light, extra-ocular motions intact. Lids and lashes normal. Conjunctiva and sclera are non-icteric and not injected. Cornea within normal limits. Periorbital areas with no swelling, redness, or edema. ENT: Nares patent. No nasal discharge, no septal abnormalities noted. Tympanic membranes are normal and external auditory canals are clear. Oropharynx with no redness, swelling, or masses, exudates, or evidence of obstruction, uvula midline. Mucous membranes moist. Neck: Trachea midline, no thyromegaly or masses palpated, and no cervical lymphadenopathy. Supple, full range of motion without nuchal rigidity, or vertebral point tenderness. No Meningismus. Chest/axilla: Patient has tenderness over suprascapular wrist, consistent with musculoskeletal pain, right hand exam is unremarkable, sensation is intact cap refill brisk all head movement is intact with full strength 5 out of 5. Pulses 2+ palpable and equal at ulnar and radial pulse. Right hand. Otherwise at normal chest wall appearance and motion. Nontender with no deformity. No lesions are appreciated. Cardiovascular: Regular rate and rhythm with a normal S1 and S2. No gallops, murmurs, or rubs. Normal PMI, no JVD. No pulse deficits. Respiratory: Lungs have equal breath sounds bilaterally, clear to auscultation and percussion. No rales, rhonchi or wheezes noted. No increased work of breathing, no retractions or nasal flaring. Abdomen/GI: Soft, non-tender, with normal bowel sounds. No distension or tympany. No guarding or rebound. No evidence of tenderness throughout. Vital Signs: 11:10 BP 124 / 83; Pulse 60; Resp 16; Temp 97.9; Pulse Ox 100% ; Weight 90.72 kg; Height 5 vg1 ft. 4 in. (162.56 cm); Pain 7/10; 11:59 BP 115 / 77; Pulse 78; Resp 16; Pulse Ox 99% on R/A; ic1 11:10 Body Mass Index 34.33 (90.72 kg, 162.56 cm) vg1 MDM: 11:07 Patient medically screened. ma2 11:33 Differential diagnosis: contusion, abrasion, tendonitis. Data reviewed: vital signs, ma2 nurses notes. Counseling: I had a detailed discussion with the patient and/or guardian regarding: the historical points, exam findings, and any diagnostic results supporting the discharge/admit diagnosis, the presence of at least one elevated blood pressure reading (>120/80) during this emergency department visit, the need for outpatient follow up. Response to treatment: the patient's symptoms have markedly improved after treatment. 11:37 ED course: Patient had fall CT chest and back done 3 days ago that came back normal, ma2 also at x-ray and lab work all came back normal.. 03/19 11:22 Order name: Arm-Sling ma2 Administered Medications: 11:44 Drug: Valium (diazepam) 5 mg Route: IM; Site: left gluteus; ic1 11:44 Drug: Ketorolac 60 mg Route: IM; Site: right gluteus; ic1 Disposition Summary: 06/01/21 11:37 Discharge Ordered Location: Home ma2 Condition: Stable ma2 Diagnosis - Pain in right shoulder - AND SCAPULAR ma2 Followup: ma2 - With: Private Physician - When: Tomorrow - Reason: If symptoms return, Continuance of care Discharge Instructions: - Discharge Summary Sheet ma2 - Musculoskeletal Pain ma2 Forms: - Medication Reconciliation Form ma2 - Thank You Letter ma2 - Antibiotic Education ma2 - Prescription Opioid Use ma2 Prescriptions: - Neurontin 300 mg Oral Capsule - take 0.5 capsule by ORAL route every 12 hours; 30 capsule; Refills: 0, Product ma2 Selection Permitted - Diclofenac Sodium 75 mg Oral Tablet Sustained Release - take 1 tablet by ORAL route 2 times per day; 30 tablet; Refills: 0, Product ma2 Selection Permitted Signatures: Monique Thomas MD MD ma2 Jennifer Solis RN RN vg1 Josefina Blue RN RN ic1
--- NOTE | 2021-06-01 11:38 | ER ---
Nurse's Notes [facility] Name: Renée Keita Age: 35 yrs Sex: Female : 1985 Arrival Date: 06/01/2021 Time: 11:00 Bed 15 Private MD: Diagnosis: Pain in right shoulder-AND SCAPULAR Presentation: 06/01 11:10 Chief complaint: Patient states: 'was here for the same thing on Thursday night; the vg1 prescription of medication I was given are not working; my Right hand feels numb still and I was having chest pain yesterday.'. Coronavirus screen: Vaccine status: Patient reports receiving the 2nd dose of the covid vaccine. Client denies travel out of the [place] in the last 14 days. Ebola Screen: Patient negative for fever greater than or equal to 101.5 degrees Fahrenheit, and additional compatible Ebola Virus Disease symptoms. Initial Sepsis Screen: Does the patient meet any 2 criteria? No. Patient's initial sepsis screen is negative. Does the patient have a suspected source of infection? No. Patient's initial sepsis screen is negative. Risk Assessment: Do you want to hurt yourself or someone else? Patient reports no desire to harm self or others. Onset of symptoms was May 27, 2021. 11:10 Method Of Arrival: Ambulatory vg1 11:10 Acuity: KAMILA 3 vg1 Triage Assessment: 11:12 General: Appears in no apparent distress. comfortable, Behavior is calm, cooperative. vg1 Pain: Complains of pain in right hand and right arm. 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 - Social history:: Smoking status: Patient denies any tobacco usage or history of. Patient/guardian denies using alcohol, street drugs, The patient lives with family. - Family history:: not pertinent. Screenin:22 Abuse screen: Denies threats or abuse. Denies injuries from another. Nutritional ic1 screening: No deficits noted. Tuberculosis screening: No symptoms or risk factors identified. Fall Risk None identified. Assessment: 11:43 General: Appears in no apparent distress. uncomfortable, Behavior is calm, cooperative. ic1 Pain: Complains of pain in right arm. Neuro: Level of Consciousness is awake, alert, obeys commands, Oriented to person, place, time, situation. Cardiovascular: No deficits noted. Respiratory: No deficits noted. GI: No deficits noted. : No deficits noted. EENT: No deficits noted. Derm: No deficits noted. Musculoskeletal: Reports numbness in right hand and right arm pain in right hand and right arm. 12:00 Reassessment: Pt placed R arm in arm sling. Tolerated. PMS remains pos. ic1 Vital Signs: 11:10 BP 124 / 83; Pulse 60; Resp 16; Temp 97.9; Pulse Ox 100% ; Weight 90.72 kg; Height 5 vg1 ft. 4 in. (162.56 cm); Pain 7/10; 11:59 BP 115 / 77; Pulse 78; Resp 16; Pulse Ox 99% on R/A; ic1 11:10 Body Mass Index 34.33 (90.72 kg, 162.56 cm) vg1 ED Course: 11:00 Patient arrived in ED. as 11:07 Monique Thomas MD is Attending Physician. ma2 11:12 Triage completed. vg1 11:12 Arm band placed on. vg1 11:17 Patient has correct armband on for positive identification. Placed in gown. Bed in low mh5 position. Call light in reach. Side rails up X 1. Warm blanket given. pipe stem aligner on. Pulse ox on. NIBP on. 11:17 EKG done, by ED staff, reviewed by Monique Thomas MD. 5 11:22 Josefina Blue, EVANGELINA is Primary Nurse. ic1 11:22 No provider procedures requiring assistance completed. ic1 12:00 Patient did not have IV access during this emergency room visit. ic1 Administered Medications: 11:44 Drug: Valium (diazepam) 5 mg Route: IM; Site: left gluteus; ic1 11:44 Drug: Ketorolac 60 mg Route: IM; Site: right gluteus; ic1 Outcome: 11:37 Discharge ordered by . ma2 12:00 Discharged to home ambulatory. ic1 12:00 Condition: stable 12:00 Discharge instructions given to patient, Instructed on discharge instructions, follow up and referral plans. Demonstrated understanding of instructions, follow-up care, medications, Prescriptions given X 2. 12:01 Patient left the ED. ic1 Signatures: Cathy [facility] Monique Thomas MD MD ma2 Jennifer Solis, RN RN vg1 Josefina Blue RN RN ic1
[2021-06-01 12:27] VITALS: TEMP 97.9
[2021-06-01 12:29] VITALS: BP 115/77; O2SAT 99
--- NOTE | 2021-06-03 08:24 | EKG ---
Test Date: 2021-06-01 Test Time: 11:09:45 Clothing Room Supervisor: VICKY MEASUREMENT RESULTS: Intervals: Rate: 70 KS: 174 QRSD: 96 QT: 412 QTc: 444 [place]: P: 48 KS: 174 QRS: 28 T: 41 INTERPRETIVE STATEMENTS: Normal sinus rhythm with sinus arrhythmia Normal ECG Compared to ECG 05/28/2021 00:11:00 T-wave abnormality no longer present Prolonged QT interval no longer present Electronically Signed On 06-03-21 08:20:52 CDT by Andrez Merrill
== END 2021-06-01 12:01 | disposition home or self-care (01) ==
LOC: ER 10:58
DX: M25.511 Pain in right shoulder (principal); R20.0 Anesthesia of skin
CPT/HCPCS: 93005; 96372; 99284; J3360

== ENCOUNTER 2021-08-31 14:31 | Emergency (ER) | payer SELFPAY ==
--- OUTSIDE RECORDS SUMMARY | 2021-08-31 14:34 | XMS REPORT | Continuity of Care Document ---
:1985 Author Organization [facility] t Address 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 Need for Need for Disease Active 2012-03 Unive rs Tdap Tdap 2-04 ity of vacc[place] Branch Allergies, Adverse Reactions, Alerts Allergy Allergy Status Severity Reaction(s) Onset Inactive Treating Comm ents Source Name Type Date Date Clinician NO KNOWN Drug Active Univers ALLERGIE Class ity of S [place] [facility] Social History Social Habit Start Date Stop Date Quantity Comments Source Exposure to Not sure University of SARS-CoV-2 [place] [facility] (event) Branch History SDOH University o f Alcohol Frequency [place] M edical [facility] History SDWI University o f Alcohol Std [place] [facility] Drinks Branch History SDWI University o f Alcohol Binge [place] [facility] al [facility] Alcohol intake 2021-06-08 2021-06-08 Current drinker Unive rsity of 00:00:00 00:00:00 of alcohol [place] [facility] (finding) Branch Tobacco use and 2012-07-01 2012-07-01 Never used Universit y of exposure 00:00:00 00:00:00 [facility] Alcohol Comment 2012-07-01 2012-07-01 1 x per month Univer sity of 00:00:00 00:00:00 [facility] Sex [birth year] Universit y of 00:00:00 00:00:00 [facility] Smoking Status Start Date Stop Date Source Never smoker [facility] Medications Ordered Filled Start Stop Current Ordering Indication Dosage Frequency Signature Comments Components Source Medication Medication Date Date Medication? Clinician (SIG) Name Name HYDROcodone 2021- No 1{tbl} 1 tablet, Univers -acetaminop 06-08 Oral, ity of hen (NORCO 22:00: 21:08 ONCE, 1 [place] 5) 5-325 mg 00 :00 dose, On Medi elkin tablet 1 Sat Branch tablet 06/08/21 at 1700, DAVID methocarbam 2021- No 1000mg 1,000 mg, Univers oL 06-08 Oral, ity of (ROBAXIN) 22:00: 21:08 [place]CE, 1 [place] tablet [place] :[place] dose, On Medical 1,000 mg Sat Branch 06/08/21 at 1700, DAVID ketorolac 2021- No 60mg 60 mg, Unive rs (TORADOL) 06-08 Intramuscu ity of injection 22:00: 21:07 lar, ONCE, [place] 60 mg 00 :00 1 dose, On Medical Sat Branch 06/08/21 at 1700, DAVID ibuprofen 0 Yes [id number] 800mg Take 1 Univers 800 mg 06-08 tablet by ity of tablet 00:00: mouth [place] [id number] every 8 Medical (eight) Branch hours as needed for Pain (scale 4-6). methocarbam Yes [id number] 750mg Take 1 Univers oL 750 mg 3-26 tablet by ity o f tablet 00:00: mouth 4 [place] 00 (four) Medical times Branch daily as needed for Pain (scale 4-6). acetaminoph 2021- Yes [id number] 1{tbl} Take 1 U nivers en-codeine 3-26 04-03 tablet by ity of 300-30 mg 00:00: 04:59 mouth [place] tablet 00 :00 every 6 Medical (six) Branch hours as needed for Pain (scale 7-10) for up to 7 days. Indication s: acute pain naproxen Yes [id number] 500mg Take 1 Un sasha 500 mg 7-26 tablet by ity of tablet 00:00: mouth 2 [place] 00 (two) Medical times Branch daily with meals. naproxen Yes [id number] 500mg Take 1 Un sasha 500 mg 7-26 tablet by ity of tablet 00:00: mouth 2 [place] 00 (two) Medical times Branch daily with meals. naproxen Yes [id number] 500mg Take 1 Un sasha 500 mg 7-26 tablet by ity of tablet 00:00: mouth 2 [place] 00 (two) Medical times Branch daily with meals. amoxicillin 2020- No [id number] 875mg Take 1 Univers 875 mg 7-26 [...] 2-04 mg by ity of 37.5 mg 10:21: mouth [place] tablet 15 daily with Medical breakfast. Branch phentermine 2012-03 Yes 37.5mg Take 37.5 Univers (ADIPEX-P) 2-04 mg by ity of 37.5 mg 10:21: mouth [place] tablet 15 daily with Medical breakfast. Branch levonorgest 2012-03 Yes [id number] 1{devic 1 Device Univers rel 2-03 e} by ity of (MIRENA) 20 23:49: Intrauteri [place] mcg/24 hour 43 ne route Medi elkin (5 years) once now. Branc h IUD levonorgest 2012-03 Yes [id number] 1{devic 1 Device Univers rel 2-03 e} by ity of (MIRENA) 20 23:49: Intrauteri [place] mcg/24 hour 43 ne route Medi elkin (5 years) once now. Branc h IUD levonorgest 2012-03 Yes [id number] 1{devic 1 Device Univers rel 2-03 e} by ity of (MIRENA) 20 17:49: Intrauteri [place] mcg/24 hour 43 ne route Medi elkin (5 years) once now. Branc h IUD levonorgest 2012-03 Yes [id number] 1{devic 1 Device Univers rel 2-03 e} by ity of (MIRENA) 20 17:49: Intrauteri [place] mcg/24 hour 43 ne route Medi elkin (5 years) once now. Branc h IUD Immunizations Ordered Filled Immunization Date Status Comments Sourc e Immunization Name Name Influenza Virus 2008-05-03 Completed Universit y of Vaccine 00:00:00 [facility] Influenza Virus 2008-05-03 Completed Universit y of Vaccine 00:00:00 [facility] Influenza Virus 2008-05-03 Completed Universit y of Vaccine 00:00:00 [facility] Influenza Virus 2008-05-03 Completed Universit y of Vaccine 00:00:00 [facility] Rubella 2007-10-26 Completed University of 00:00:00 [facility] Rubella 2007-10-26 Completed University of 00:00:00 [facility] Rubella 2007-10-26 Completed University of 00:00:00 [facility] Rubella 2007-10-26 Completed University of 00:00:00 [facility] Td 1998-03-16 Completed University of 00:00:00 [facility] Td 1998-03-16 Completed University of 00:00:00 [facility] Td 1998-03-16 Completed University of 00:00:00 [facility] Td 1998-03-16 Completed University of 00:00:00 [facility] Vital Signs Vital Name Observation Time Observation Value Comments Source Systolic blood 2021-06-08 21:37:54 107 mm[Hg] Univer sity of pressure [place] [facility] Diastolic blood 2021-06-08 21:37:54 74 mm[Hg] Unive rsity of pressure [place] [facility] Heart rate 2021-06-08 21:37:54 79 /min Universi ty of [place] [facility] Body temperature 2021-06-08 21:37:54 37.06 Ariadna Univ ersity of [place] [facility] Respiratory rate 2021-06-08 21:37:54 18 /min Univ ersity of [place] [facility] Oxygen saturation in 2021-06-08 21:37:54 98 /min University of Arterial blood by [place] [employer] Pulse oximetry Branch Body weight 2021-06-08 20:33:00 90.719 kg Universi ty of [place] [facility] BMI 2021-06-08 20:33:00 34.33 kg/m2 Universi ty of [place] [facility] Systolic blood 2020-10-08 21:31:00 116 mm[Hg] Univer sity of pressure [place] [facility] Diastolic blood 2020-10-08 21:31:00 69 mm[Hg] Unive rsity of pressure [place] [facility] Heart rate 2020-10-08 21:31:00 59 /min Universi ty of [place] [facility] Body temperature 2020-10-08 21:31:00 37.28 Ariadna Univ ersity of [place] [facility] Respiratory rate 2020-10-08 21:31:00 16 /min Univ ersity of [place] [facility] Body height 2020-10-08 21:31:00 162.6 cm Universi ty of [place] [facility] Body weight 2020-10-08 21:31:00 90.719 kg Universi ty of [place] [facility] BMI 2020-10-08 21:31:00 34.33 kg/m2 Universi ty of [place] [facility] Oxygen saturation in 2020-10-08 21:31:00 94 /min University of Arterial blood by [place] [employer] elkin Pulse oximetry Branch Procedures Procedure Date / Time Performed Performing Clinician Sour e CONSENT/REFUSAL FOR 2021-06-08 20:26:40 Doctor Unassigned, No Un [facility] DIAGNOSIS AND Name Medical Branch TREATMENT POCT TEST 2020-10-08 21:38:00 [facility] 2020-10-08 21:18:59 [facility], [facility] Name [facility] TREATMENT NOTICE OF PRIVACY 2020-10-08 21:18:38 Doctor Unassigned, No Univ ersity [facility] PRACTICES Name [facility] Branch Encounters Start End Encounter Admission Attending Care Care Encounter Source Date/Time Date/Time Type Type Clinicians Facility Department ID 2021-06-08 2021-06-08 Emergency X LELAND, [facility] ERT [id number] Univers 15:37:00 16:46:00 TEE ity [facility] 2021-06-08 2021-06-08 Emergency Leland [facility] [id number] Univers 15:37:00 16:46:00 Tee ACOSTA [id number] i ty of [place] [id number] [id number] [address] 2021-06-08 2021-06-08 Orders Doctor MUÑOZ [id number] Univers 00:00:00 00:00:00 Only Unassigned, SUSANA [id number] ity of [place] [facility] [id number] Yeyo as [id number] [address] 2020-10-08 2020-10-08 Emergency Jorge [facility] [id number] Univers 16:35:00 17:12:00 Radha Acosta [id number] ity [facility] [id number] [facility] [id number] [address] 2020-10-08 2020-10-08 Emergency X [facility] ERT [id number] Univers 16:19:00 16:19:00 ity of [facility] 2020-10-08 2020-10-08 Orders Doctor MUÑOZ [id number] Univers 00:00:00 00:00:00 Only Unassigned, SUSANA [id number] ity of [place] [facility] 4.2.7.2.686 Yeyo as [id number] [facility] 009 Branch 2016-04-14 2016-04-14 Outpatient [facility] [id number] 14:30:00 14:30:00 [address] Results Test Description Test Time Test Comments Results Result Comments Source COMPREHENSIVE METABOLIC PANEL 2021-08-28 05:52:46 Test Item Value Reference Range Interpretation Comme nts GLUCOSE (test code = 2216) 110 MG/DL 70-99 H BUN (test code = 2207) 12 MG/DL 6-20 CREATININE (test code = 0.67 MG/DL 0.60-1.30 2213) eGFR (2020 CKD-EPI) (test 115 ML/MIN/1.73 >60 code = 62660) CALC BUN/CREAT (test code = 18 RATIO 6-28 2234) SODIUM (test code = 223) 148 MEQ/L 133-146 H POTASSIUM (test code = 2228) 5.0 MEQ/L 3.5-5.4 CHLORIDE (test code = 2214) 108 MEQ/L 95-107 H CARBON DIOXIDE (test code = 30 MEQ/L 19-31 2205) CALCIUM (test code = 220) 9.7 MG/DL 8.5-10.5 PROTEIN, TOTAL (test code = 8.2 G/DL 6.1-8.3 2228) ALBUMIN (test code = 220) 4.3 G/DL 3.5-5.2 CALC GLOBULIN (test code = 3.9 G/DL 1.9-3.7 H 2239) CALC A/G RATIO (test code = 1.1 RATIO 1.0-2.6 2233) BILIRUBIN, TOTAL (test code 0.5 MG/DL See_Comment [Automated message] The = 2206) system which ge nerated this result transmit butch reference range : <=1.2. The reference range was not used to interpr et this result as basia l/abnormal. ALKALINE PHOSPHATASE (test 87 U/L 40-112 code = 2204) AST (test code = 2218) 28 U/L 9-40 ALT (test code = 2219) 28 U/L 5-40 C-REACTIVE [id number] 05:52:34 Test Item Value Reference Range Interpretation Comments C-REACTIVE PROTEIN 4.8 MG/DL <0.5 H UN LESS OTHERWISE (test code = 3513) INDICATED , ALL TESTING PERFORMED [facility] PATHOLOGY [facility] [address] [facility], [place] [address] LABORATORY DIRE CTOR: LUIZ PRICE M.D. RUPINDERIA NUMBER [id number] [place] [id number] CBC W/AUTO DIFF WITH [id number] 04:54:28 Test Item Value Reference Range Interpretation Comments WBC (test code = 7.7 K/UL 3.5-11.0 1001) RBC (test code = 4.33 M/UL 3.80-5.40 1002) HEMOGLOBIN (test code 13.3 G/DL 11.5-15.5 = 1003) HEMATOCRIT (test code 39.3 % 34.0-45.0 = 1004) MCV (test code = 90.8 fL 80.0-99.0 1005) MCH (test code = 30.7 PG 25.0-33.0 1006) MCHC (test code = 33.8 G/DL 31.0-36.0 1007) RDW (test code = 12.7 % 11.5-15.0 1038) NEUTROPHILS (test 54.4 % code = 1008) LYMPHOCYTES (test 34.8 % code = 1010) MONOCYTES (test code 8.7 % = 1011) EOSINOPHILS (test 1.3 % code = 1012) BASOPHILS (test code 0.3 % = 1013) IMMATURE GRANULOCYTES 0.5 % (test code = 1036) NUCLEATED RBCS (test 0.0 /100 See_Comment [Autom ated code = 1065) WBC'S message] The sy stem which generated this result transmitted reference range : 0.0. The refere nce range was not u sed to interpret th is result as normal/abnormal . PLATELET COUNT (test 268 K/UL 130-400 code = 1015) ABSOLUTE NEUTROPHILS 4.18 K/UL 1.50-7.50 (test code = 1066) ABSOLUTE LYMPHOCYTES 2.67 K/UL 1.00-4.00 (test code = 1067) ABSOLUTE MONOCYTES 0.67 K/UL 0.20-1.00 (test code = 1068) ABSOLUTE EOSINOPHILS 0.10 K/UL 0.00-0.50 (test code = 1040) ABSOLUTE BASOPHILS 0.02 K/UL 0.00-0.20 (test code = 1069) ABS IMMATURE 0.04 K/UL 0.00-0.10 GRANULOCYTES (test code = 1020) ABS NUCLEATED RBCS 0.00 K/UL 0.00-0.11 (test code = 71885) CBC W/AUTO DIFF WITH [id number] 03:06:39 Test Item Value Reference Range Interpretation Comments WBC (test code = 7.3 K/UL 3.5-11.0 1001) RBC (test code = 4.21 M/UL 3.80-5.40 1002) HEMOGLOBIN (test 12.9 G/DL 11.5-15.5 code = 1003) HEMATOCRIT (test 37.7 % 34.0-45.0 code = 1004) MCV (test code = 89.5 fL 80.0-99.0 1005) MCH (test code = 30.6 PG 25.0-33.0 1006) MCHC (test code = 34.2 G/DL 31.0-36.0 1007) RDW (test code = 13.1 % 11.5-15.0 1038) NEUTROPHILS (test 54.6 % code = 1008) LYMPHOCYTES (test 37.2 % code = 1010) MONOCYTES (test code 6.7 % = 1011) EOSINOPHILS (test 1.0 % code = 1012) BASOPHILS (test code 0.4 % = 1013) IMMATURE 0.1 % GRANULOCYTES (test code = 1036) NUCLEATED RBCS (test 0.0 /100 See_Comment [Autom ated message] code = 1065) WBC'S The system [employer] generated this result transmitted ref erence range: 0.0. The reference range was not used to int erpret this result as normal/abnormal . PLATELET COUNT (test 231 K/UL 130-400 code = 1015) ABSOLUTE NEUTROPHILS 4.00 K/UL 1.50-7.50 (test code = 1066) ABSOLUTE LYMPHOCYTES 2.73 K/UL 1.00-4.00 (test code = 1067) ABSOLUTE MONOCYTES 0.49 K/UL 0.20-1.00 (test code = 1068) ABSOLUTE EOSINOPHILS 0.07 K/UL 0.00-0.50 (test code = 1040) ABSOLUTE BASOPHILS 0.03 K/UL 0.00-0.20 (test code = 1069) ABS IMMATURE 0.01 K/UL 0.00-0.10 GRANULOCYTES (test code = 1020) ABS NUCLEATED RBCS 0.00 K/UL 0.00-0.11 UN LESS (test code = 22905) OTHERWIS E INDICATED, ALL TESTING PER FORMED ATCLINICAL PATH OLOGY LABORATORIES, [place] [address] [facility] [address] LABORATORY DIRE CTOR: LUIZ PRICE M.D. CLIA NUMBER [id number] CAP ACCREDITATION N O. [id number] CBC W/AUTO DIFF WITH [id number] 12:11:11 Test Item Value Reference Range Interpretation [...] RBCS TEST NOT 0.00-0.11 (test code = 92168) PERFORMED K/UL COMMENTS (test code = TEST NOT 1016) PERFORMED COMPREHENSIVE METABOLIC [id number] 04:59:13 Test Item Value Reference Range Interpretation Comments GLUCOSE (test code = 99 MG/DL 70-99 2216) BUN (test code = 14 MG/DL -2207) CREATININE (test 0.78 MG/DL 0.60-1.30 code = 2214) eGFR (2020 CKD-EPI) 100 >60 (test code = 69263) ML/MIN/1.73 CALC BUN/CREAT (test 18 RATIO - code = 2235) SODIUM (test code = 146 MEQ/L 351-320 5691) POTASSIUM (test code 4.9 MEQ/L 3.5-5.4 = 2228) CHLORIDE (test code 108 MEQ/L 95-107 H = 221) CARBON DIOXIDE (test 29 MEQ/L 19-31 code = 2206) CALCIUM (test code = 9.9 MG/DL 8.5-10.5 2208) PROTEIN, TOTAL (test 8.3 G/DL 6.1-8.3 code = 2229) ALBUMIN (test code = 4.4 G/DL 3.5-5.2 2200) CALC GLOBULIN (test 3.9 G/DL 1.9-3.7 H code = 2240) CALC A/G RATIO (test 1.1 RATIO 1.0-2.6 code = 2234) BILIRUBIN, TOTAL 0.6 MG/DL See_Comment [Automated message] (test code = 220) The syste [employer] which generated this result transmitted ref erence range: <=1.2. T he reference range was not used to int erpret this result as normal/abnormal . ALKALINE PHOSPHATASE 77 U/L 40-112 (test code = 2203) AST (test code = 29 U/L 9-40 2217) ALT (test code = 26 U/L 5-40 UNLE SS 2218) OTHERWISE INDIC ATED, ALL TESTING PER FORMED ATCLINICAL PATH OLOGY LABORATORIES, I [place]. [address] [place] [address] LABORATORY DIRE CTOR: LUIZ PRICE M.D. CLIA NUMBER [id number] [place]CREDITATION N O. [id number] POCT [id number] 21:38:00 Test Item Value Reference Range Interpretation Comments POCT PREG (test code = 1605) negative On board controls acceptable with present C Line (test code = 3574) POCT PREG LOT # (test code = 3575) [id number] POCT PREG TEST DATE (test 03/15/22 code = 3576) Lab Interpretation (test code = Normal 99521-4) [facility]
[2021-08-31] MEDS ORDERED: MORPHINE 4 MG/ML SYR ONE (15:19)
[2021-08-31] MEDS ORDERED: ONDANSETRON 4 MG/2 ML VIAL ONE (15:20)
[2021-08-31] MEDS ORDERED: FAMOTIDINE 20 MG/2 ML VIAL IV ONE (15:20)
--- NOTE | 2021-08-31 15:23 | RAD REPORT ---
EXAM DESCRIPTION: RAD - Chest Single View - 08/31/2021 3:17 pm CLINICAL HISTORY: CHEST PAIN Chest pain. COMPARISON: Chest Single View dated 05/28/2021 FINDINGS: Portable technique limits examination quality. The lungs are grossly clear. The heart is normal in size. No displaced fractures. IMPRESSION: No acute intrathoracic process suspected.
[2021-08-31 15:35] LABS: Hematocrit 37.1 % (36.0-45.0); Lymphocytes % 30.5 % (15.3-44.8); MPV 8.2 fL (7.6-11.3); RBC Red Blood Cell Count 4.09 M/uL (3.86-4.86)
[2021-08-31 15:39] LABS: Protime INR 0.96
[2021-08-31 16:01] LABS: Albumin 3.2 g/dL (3.4-5.0); Bilirubin Direct 0.1 mg/dL (0-0.2); Bilirubin Total 0.4 mg/dL (0.2-1.0); Potassium 3.8 mmol/L (3.5-5.1); Protein, Total 7.9 g/dL (6.4-8.2); Troponin High Sensitivity 3.6 pg/mL (<58.9)
[2021-08-31 16:33] LABS: Urine Blood Negative (Negative); Urine Glucose Negative (Negative); Urine Protein Negative (Negative); Urine Specific Gravity >=1.030 (1.005-1.030)
--- NOTE | 2021-08-31 17:01 | RAD REPORT ---
EXAM DESCRIPTION: CTAbdomen Pelvis W Contrast - 08/31/2021 4:53 pm CLINICAL HISTORY: Abdominal pain. Lower Abdominal Pain COMPARISON: Abdomen Pelvis W Contrast dated 08/30/2020; CT ABD PELVIS W CONTRAST dated 09/14/2012 TECHNIQUE: Biphasic CT imaging of the abdomen and pelvis was performed with 100 ml non-ionic IV cont rast. All CT scans are performed using dose optimization technique as appropriate and may include automated exposure control or mA/KV adjustment according to patient size. FINDINGS: Linear atelectasis is present both lung bases. The liver demonstrates diffuse fatty infiltration. Cholecystectomy. Spleen, pancreas, adrenal glands and kidneys are within normal limits. No bowel obstruction, free air, free fluid or abscess. The appendix is normal. No evidence of signi ficant lymphadenopathy. No suspicious bony findings. IMPRESSION: No acute intra-abdominal or pelvic finding. Fatty liver.
--- NOTE | 2021-08-31 17:06 | RAD REPORT ---
EXAM DESCRIPTION: CT - Chest For Pe Angio - 08/31/2021 4:53 pm CLINICAL HISTORY: Chest pain. chest pain, shortness of breath COMPARISON: Chest For Pe Angio dated 05/28/2021 TECHNIQUE: CT angiogram of the pulmonary arteries was performed with MIP. All CT scans are performed using dose optimization technique as appropriate and may include automated exposure control or mA/KV adjustment according to patient size. FINDINGS: No evidence of pulmonary thromboembolism. No acute aortic finding demonstrated. Mild atelectasis is present bilaterally. No focal pulmonary infiltrate. No significant pericardial or pleural fluid. No concerning bony finding. IMPRESSION: No evidence of pulmonary thromboembolism. No acute lung findings.
[2021-08-31] MEDS ORDERED: MAGNES/ALUMIN/SIMET 30ML UCUP ONE (17:48)
[2021-08-31] MEDS ORDERED: LIDOCAINE VISCOUS 2% SOLN 15 ML UDC ONE (17:48)
[2021-08-31] MEDS ORDERED: METOCLOPRAMIDE 10 MG/2mL INJ ONE (18:01)
[2021-08-31] MEDS ORDERED: LORazepam 2 MG/ML VIAL ONE (18:02)
[2021-08-31] MEDS ORDERED: DIPHENHYDRAMINE 50 MG/ML VIAL ONE (18:02)
[2021-08-31] MEDS ORDERED: NA CHLORIDE 0.9% 250 ML ONE (18:02)
--- NOTE | 2021-08-31 19:52 | ER ---
Nurse's Notes [facility] [place] [facility] Name: Renée Keita Age: 35 yrs Sex: Female : 1985 Arrival Date: 08/31/2021 Time: 14:32 Bed 14 Private MD: Diagnosis: Chest pain, unspecified;Upper abdominal pain, unspecified Presentation: 08/31 14:37 Chief complaint: Patient states: "I woke up with chest pains this morning and they aa5 started again a little bit ago". Pt reports SOB. Coronavirus screen: At this time, the client does not indicate any symptoms associated with coronavirus-19. Ebola Screen: No symptoms or risks identified at this time. Initial Sepsis Screen: Does the patient meet any 2 criteria? No. Patient's initial sepsis screen is negative. Does the patient have a suspected source of infection? No. Patient's initial sepsis screen is negative. Risk Assessment: Do you want to hurt yourself or someone else? Patient reports no desire to harm self or others. Onset of symptoms was August 2021. 14:37 Acuity: KAMILA 3 aa5 14:37 Method Of Arrival: Ambulatory aa5 Triage Assessment: 16:34 General: Appears uncomfortable, Behavior is calm, cooperative. Pain: Complains of pain jg9 in abdomen. Cardiovascular: No deficits noted. 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 - Social history:: Smoking status: Patient denies any tobacco usage or history of. Screenin:34 Abuse screen: Denies threats or abuse. Denies injuries from another. Nutritional jg9 screening: No deficits noted. Tuberculosis screening: No symptoms or risk factors identified. Fall Risk None identified. Assessment: 16:34 Reassessment: No changes from previously documented assessment. Patient and/or family jg9 updated on plan of care and expected duration. Pain level reassessed. Patient is alert, oriented x 3, equal unlabored respirations, skin warm/dry/pink. Pain: Complains of pain in abdomen Pain does not radiate. Pain began 2-3 days ago. 17:02 Reassessment: Patient returned from CT c/o nausea but does not want anything for it jg9 right now. 17:52 Reassessment: patient unable to drink gi cocktail-states she just can't do it. jg9 Vital Signs: 14:37 BP 104 / 72; Pulse 80; Resp 18 S; Temp 97.5(TE); Pulse Ox 97% on R/A; Weight 103.42 kg aa5 (R); Height 5 ft. 4 in. (162.56 cm) (R); 16:30 BP 98 / 68; Pulse 104; Resp 14; Pulse Ox 97% ; jg9 20:22 BP 107 / 92; Pulse 81; Resp 17; Temp 98.1; Pulse Ox 95% ; ke1 14:37 Body Mass Index 39.14 (103.42 kg, 162.56 cm) aa5 ED Course: 14:32 Patient arrived in ED. as 14:34 Roberto Spencer PA is PHCP. [facility] 14:34 Monique Thomas MD is Attending Physician. [facility] 14:36 Arm band placed on. aa5 14:38 Triage completed. aa5 14:49 EKG done, by ED staff, reviewed by Roberto HAYNES. mb7 15:01 Fide Viera, RN is Primary Nurse. jg9 15:11 Inserted saline lock: 20 gauge in left antecubital area, using aseptic technique. Blood jg9 collected. 15:18 XRAY Chest (1 view) In Process Unspecified. EDMS 16:14 Radiology exam delayed due to test not completed at this time. mw3 16:35 Patient has correct armband on for positive identification. Bed in low position. Call jg9 light in reach. Side rails up X 1. Client placed on continuous cardiac and pulse oximetry monitoring. NIBP monitoring applied. 16:35 Patient maintains SpO2 saturation greater than 95% on room air. jg9 16:54 CT Chest For PE Angio In Process Unspecified. EDMS 16:55 CT Abd/Pelvis - IV Contrast Only In Process Unspecified. EDMS Administered Medications: 15:21 Drug: morphine 4 mg Route: IVP; Infused Over: 4 mins; Site: right antecubital; jg9 16:17 Follow up: Response: No adverse reaction jg9 16:17 Follow up: Response: Pain is decreased; RASS: Alert and Calm (0) jg9 15:21 Drug: Zofran (Ondansetron) 4 mg Route: IVP; Site: right antecubital; jg9 16:17 Follow up: Response: No adverse reaction jg9 15:21 Drug: Pepcid (famotidine) 20 mg Route: IVP; Site: right antecubital; jg9 16:17 Follow up: Response: No adverse reaction jg9 17:45 Drug: GI Cocktail without - (Maalox Suspension 30 ml, Lidocaine Liquid 2 % 15 jg9 ml) Route: PO; 17:52 Follow up: Response: Other jg9 18:02 Drug: NS 0.9% 250 ml Route: IV; Rate: bolus; Site: left antecubital; jg9 18:03 Drug: Ativan (LORazepam) 1 mg Route: IVP; Site: left antecubital; jg9 18:03 Drug: Reglan (metoCLOPramide) 20 mg Route: IVP; Site: left antecubital; jg9 18:03 Drug: diphenhydrAMINE 12.5 mg Route: IVP; Site: left antecubital; jg9 Medication: 16:35 VIS not applicable for this client. jg9 Point of Care Testing: Urine : 16:33 hCG Reading: Negative; Control Reading: Positive; jg9 16:33 Exp: 01/13/2023; Lot #: [id number]; jg9 Outcome: 19:52 Discharge ordered by MD. jon 20:23 Patient left the ED. ke1 Signatures: Dispatcher [employer] EDMS Roberto Spencer PA PA jmm Martinez, Amelia as Calderon, Audri, RN RN aa5 Martha Tate mw3 Kelsie Diamond mb7 Fide Viera RN RN jg9 Marcos Rutledge RN RN ke1 Corrections: (The following items were deleted from the chart) 14:39 14:37 Pulse 80bpm; Resp 18bpm; Spontaneous; Pulse Ox 97% RA; Temp 97.5F Temporal; aa5 103.42 kg Reported; Height 5 ft. 4 in. Reported; BMI: 39.1; aa5
--- NOTE | 2021-08-31 19:53 | EDPHYS ---
Physician Documentation [facility] Name: Renée Keita Age: 35 yrs Sex: Female : 1985 Arrival Date: 08/31/2021 Time: 14:32 Bed 14 Private MD: ED Physician Monique Thomas HPI: 08/31 14:51 This 35 yrs old Female presents to ER via Ambulatory with complaints of Chest Pain. jmm 14:51 Onset: The symptoms/episode began/occurred gradually. 35-year-old female with a history jmm of psoriasis the presents emerged part with complaints of epigastric abdominal pain which extends up her chest. Patient's symptoms initially felt this morning upon awakening but intensified just prior to arrival. Patient also complains of shortness of breath. Denies fever or cough.. 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 - Social history:: Smoking status: Patient denies any tobacco usage or history of. ROS: 14:51 Constitutional: Negative for fever, chills, and weight loss, Cardiovascular: Negative jmm for chest pain, palpitations, and edema, Respiratory: Negative for shortness of breath, cough, wheezing, and pleuritic chest pain. 14:51 Abdomen/GI: Positive for abdominal pain. 14:51 All other systems are negative. Exam: 14:51 Head/Face: atraumatic. Eyes: EOMI, no conjunctival erythema appreciated ENT: Moist jmm Mucus Membranes Neck: Trachea midline, Supple Chest/axilla: Normal chest wall appearance and motion. Cardiovascular: Regular rate and rhythm. No edema appreciated Respiratory: Normal respirations, no respiratory distress appreciated Abdomen/GI: Non distended, soft Back: Normal ROM 14:51 Skin: General appearance color normal MS/ Extremity: Moves all extremities, no obvious deformities appreciated, no edema noted to the lower extremities Neuro: Awake and alert Psych: Behavior is normal, Mood is normal, Patient is cooperative and pleasant 14:51 Constitutional: The patient appears alert, awake. 14:51 Abdomen/GI: Inspection: abdomen appears normal, Bowel sounds: normal, Palpation: soft, mild abdominal tenderness, in the epigastric area. Vital Signs: 14:37 BP 104 / 72; Pulse 80; Resp 18 S; Temp 97.5(TE); Pulse Ox 97% on R/A; Weight 103.42 kg aa5 (R); Height 5 ft. 4 in. (162.56 cm) (R); 16:30 BP 98 / 68; Pulse 104; Resp 14; Pulse Ox 97% ; jg9 20:22 BP 107 / 92; Pulse 81; Resp 17; Temp 98.1; Pulse Ox 95% ; ke1 14:37 Body Mass Index 39.14 (103.42 kg, 162.56 cm) aa5 MDM: 14:51 Patient medically screened. danay 19:50 Data reviewed: vital signs, nurses notes. Counseling: I had a detailed discussion with danay the patient and/or guardian regarding: the historical points, exam findings, and any diagnostic results supporting the discharge/admit diagnosis, lab results, radiology results, the need for outpatient follow up, to return to the emergency department if symptoms worsen or persist or if there are any questions or concerns that arise at home. ED course: Patient states feeling much better. Advised to follow up with PCP and otherwise given strict return precautions. patient understood and agrees with the plan of care. . 08/31 14:51 Order name: Basic Metabolic Panel; Complete Time: 16:03 [facility] 08/31 14:51 Order name: CBC with Diff; Complete Time: 15:43 [facility] 08/31 14:51 Order name: LFT's; Complete Time: 16:03 [facility] 08/31 14:51 Order name: Magnesium; Complete Time: 16:03 [facility] 08/31 14:51 Order name: NT PRO-BNP; Complete Time: 16:03 [facility] 08/31 14:51 Order name: PT-INR; Complete Time: 15:43 [facility] 08/31 14:51 Order name: Troponin HS; Complete Time: 16:03 [facility] 08/31 14:51 Order name: XRAY Chest (1 view); Complete Time: 15:33 [facility] 08/31 14:51 Order name: Lipase; Complete Time: 16:03 [facility] 08/31 16:01 Order name: CT Chest For PE Angio; Complete Time: 17:07 [facility] 08/31 16:01 Order name: CT Abd/Pelvis - IV Contrast Only; Complete Time: 17:03 [facility] 08/31 16:33 Order name: Urine Dipstick-Ancillary; Complete Time: 16:38 [facility] 08/31 16:39 Order name: Urine --Ancillary (enter results); Complete Time: 17:20 08/31 14:51 Order name: EKG; Complete Time: 14:52 [facility] 08/31 14:51 Order name: Cardiac monitoring; Complete Time: 15:02 [facility] 08/31 14:51 Order name: EKG - Nurse/Tech; Complete Time: 14:55 [facility] 08/31 14:51 Order name: IV Saline Lock; Complete Time: 15:11 [facility] 08/31 14:51 Order name: Labs collected and sent; Complete Time: 15:11 [facility] 08/31 14:51 Order name: O2 Sat Monitoring; Complete Time: 15:02 [facility] 08/31 15:03 Order name: Urine Dipstick-Ancillary (obtain specimen); Complete Time: 16:33 [facility] 08/31 15:03 Order name: Urine Test (obtain specimen); Complete Time: 16:33 jm Administered Medications: 15:21 Drug: morphine 4 mg Route: IVP; Infused Over: 4 mins; Site: right antecubital; jg9 16:17 Follow up: Response: No adverse reaction jg9 16:17 Follow up: Response: Pain is decreased; RASS: Alert and Calm (0) jg9 15:21 Drug: Zofran (Ondansetron) 4 mg Route: IVP; Site: right antecubital; jg9 16:17 Follow up: Response: No adverse reaction jg9 15:21 Drug: Pepcid (famotidine) 20 mg Route: IVP; Site: right antecubital; jg9 16:17 Follow up: Response: No adverse reaction jg9 17:45 Drug: GI Cocktail without - (Maalox Suspension 30 ml, Lidocaine Liquid 2 % 15 jg9 ml) Route: PO; 17:52 Follow up: Response: Other jg9 18:02 Drug: NS 0.9% 250 ml Route: IV; Rate: bolus; Site: left antecubital; jg9 18:03 Drug: Ativan (LORazepam) 1 mg Route: IVP; Site: left antecubital; jg9 18:03 Drug: Reglan (metoCLOPramide) 20 mg Route: IVP; Site: left antecubital; jg9 18:03 Drug: diphenhydrAMINE 12.5 mg Route: IVP; Site: left antecubital; jg9 Point of Care Testing: Urine : 16:33 hCG Reading: Negative; Control Reading: Positive; jg9 16:33 Exp: 01/13/2023; Lot #: [id number]; jg9 Disposition Summary: 08/31/21 19:52 Discharge Ordered Location: Home [facility] Condition: Stable jmm Diagnosis - Chest pain, unspecified jmm - Upper abdominal pain, unspecified jmm Followup: jm - With: Private Physician - When: 2 - 3 days - Reason: Recheck today's complaints, Continuance of care, Re-evaluation by your physician Discharge Instructions: - Discharge Summary Sheet jm - Abdominal Pain, Adult jmm - Nonspecific Chest Pain, Adult jmm Forms: - Medication Reconciliation Form [facility] - Thank You Letter [facility] - Antibiotic Education [facility] - Prescription Opioid Use [facility] - Work release form ke1 Prescriptions: - Carafate 1 gram Oral Tablet - take 2 tablets by ORAL route every 12 hours take on an empty stomach, beginning jmm on waking and last dose at bedtime; 100 tablet; Refills: 0, Product Selection Permitted - ondansetron 4 mg Oral tablet,disintegrating - place 1 tablet by TRANSLINGUAL route every 4-6 hours As needed; 20 tablet; [facility] Refills: 0, Product Selection Permitted Signatures: Dispatcher [employer] Roberto Steel PA PA Lurdes Lim, RN RN aa5 Fide Viera RN RN jg9
[2021-08-31 20:53] VITALS: BP 107/92; TEMP 98.1; O2SAT 95
--- NOTE | 2021-09-02 11:54 | EKG ---
Test Date: 2021-08-31 Test Time: 14:36:15 [employer]fer: MB MEASUREMENT RESULTS: Intervals: Rate: 78 [place]: 172 QRSD: 92 QT: 392 QTc: 446 [place]: P: 43 NJ: 172 QRS: 46 T: 27 INTERPRETIVE STATEMENTS: Normal sinus rhythm Low voltage QRS Borderline ECG Compared to ECG 06/01/2021 11:09:45 Low QRS voltage now present Sinus arrhythmia no longer present Electronically Signed On 09-02-21 11:50:28 CDT by Andrez Merrill
== END 2021-08-31 20:23 | disposition home or self-care (01) ==
LOC: ER 14:31
DX: R07.9 Chest pain, unspecified (principal); R10.10 Upper abdominal pain, unspecified; L40.9 Psoriasis, unspecified
CPT/HCPCS: 36415; 71045; 71275; 74177; 80048; 80076; 81003; 81025; 83690; 83735; 83880; 84484; 85025; 85610; 93005; 99284; J1200; J2405; J2765; J3490; J7050; Q9967

== ENCOUNTER 2022-03-25 13:23 | Emergency (ER) | payer SELFPAY ==
--- OUTSIDE RECORDS SUMMARY | 2022-03-25 13:32 | XMS REPORT | Continuity of Care Document ---
:1985 Author Organization [facility] t Address [address] [place] [address] Care Team Providers Name Role Phone Abhijit Mccallum [facility] Primary Care P hysician TEE HA Attending Clinician Unavailable Tee Cardoza Attending Clinician Doctor Unassigned, [place] Attending Clinician Unavailable Radha Patel DO Attending Clinician Payers Payer Name Policy Type Policy Number Effective Date Expiration Date S ource Problems Condition Condition Condition Status Onset Resolution Last Treating Co mments Source Name Details Category Date Date Treatment Clinician Date Overweight Overweight Disease Active 2012-03 Overview : Univers 2-04 Formattin ity of 00:00: g of this [place] 00 note Medical might be Branch different from the original. 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 Need for Need for Disease Active 2012-03 Unive rs Tdap Tdap 2- ity [place] Allergies, Adverse Reactions, Alerts Allergy Allergy Status Severity Reaction(s) Onset Inactive Treating Comm ents Source Name Type Date Date Clinician Mesna - Propensi Active Intraven ty to 7-11 ous adverse 00:00: reaction 00 to drug NO KNOWN Drug Active Univers ALLERGIE Class ity of S [facility] Social History Social Habit Start Date Stop Date Quantity Comments Source Exposure to Not sure University SARS-CoV-2 [place] [facility] (event) Branch History SDOH University o f Alcohol Frequency [place] M edical Branch History SDOH University o f Alcohol Std [place] [facility] Drinks Branch History SDOH University o f Alcohol Binge [place] [facility] al Branch Alcohol intake 2021-06-08 2021-06-08 Current drinker Unive rsity of 00:00:00 00:00:00 of alcohol [place] [facility] (finding) Branch Tobacco use and 2012-07-01 2012-07-01 Never used Universit y of exposure 00:00:00 00:00:00 [facility] Alcohol Comment 2012-07-01 2012-07-01 1 x per month Univer sity of 00:00:00 00:00:00 [facility] Sex Ass[birth year] At [birth year] Universit y of 00:00:00 00:00:00 [facility] Smoking Status Start Date Stop Date Source Never smoker [facility] Medications Ordered Filled Start Stop Current Ordering Indication Dosage Frequency Signature Comments Components Source Medication Medication Date Date Medication? Clinician (SIG) Name Name TAKE 5 ML 2021- No [id number] EVERY 4 TO 0-10 6 HOURS 00:00: NEEDED. 00 TAKE 5 ML 2021-1 No EVERY 4 TO 0-10 6 HOURS 00:00: NEEDED. 00 TAKE 5 ML 2021-1 No EVERY 4 TO 0-10 6 HOURS 00:00: NEEDED. 00 TAKE 1 2021- No 800 TABLET BY 9-05 MOUTH EVERY 00:00: 8 HOURS 00 NEEDED FOR MODERATE PAIN TAKE 1 2021-0 No TABLET BY 9-05 MOUTH EVERY 00:00: 8 HOURS 00 NEEDED FOR MODERATE PAIN TAKE 1 2021-0 No TABLET BY 9-05 MOUTH EVERY 00:00: 8 HOURS 00 NEEDED FOR MODERATE PAIN TAKE 1 2021-0 No TABLET BY 9-05 MOUTH EVERY 00:00: 8 HOURS 00 NEEDED FOR MODERATE PAIN Victoza No 51(18 2-Tacho 0.6 6-27 mg/3 mg/0.1 mL 00:00: mL) (18 mg/3 00 mL) subcutaneou s pen injector Dose 2022-0 No Unknown 09-09 00:00: 00 Victoza 2-0 No 51(18 2-Tacho 0.6 6-27 mg/3 mg/0.1 mL 00:00: mL) (18 mg/3 00 mL) subcutaneou s pen injector Dose 2021-0 No Unknown 09-09 00:00: 00 Victoza 2-0 No 51(18 2-Tacho 0.6 6-27 mg/3 mg/0.1 mL 00:00: mL) (18 mg/3 00 mL) subcutaneou s pen injector Dose 2021-0 No Unknown 09-09 00:00: 00 Victoza 2-0 No 51(18 2-Tacho 0.6 6-27 mg/3 mg/0.1 mL 00:00: mL) (18 mg/3 00 mL) subcutaneou s pen injector Dose 2021-0 No Unknown 09-09 00:00: 00 Victoza 2-0 No 51(18 2-Tacho 0.6 6-27 mg/3 mg/0.1 mL 00:00: mL) (18 mg/3 00 mL) subcutaneou s pen injector Dose 2021-0 No Unknown 09-09 00:00: 00 Victoza 2-0 No 51(18 2-Tacho 0.6 6-27 mg/3 mg/0.1 mL 00:00: mL) (18 mg/3 00 mL) subcutaneou s pen injector Dose 2-0 No Unknown 09-09 00:00: 00 Dose 2-0 No Unknown 09-06 00:00: 00 Dose 2-0 No Unknown 09-06 00:00: 00 Dose 2-0 No Unknown 09-06 00:00: 00 Dose 2-0 No Unknown 09-06 00:00: 00 Dose 2-0 No Unknown 09-06 00:00: 00 Dose 2-0 No Unknown 6- 00:00: 00 Dose 2-0 No Unknown - 00:00: 00 Dose 2-0 No Unknown 09-06 00:00: 00 Dose 2-0 No Unknown 09-06 00:00: 00 Dose 2022-0 No Unknown 09-06 00:00: 00 Dose 2022-0 No Unknown 6-24 00:00: 00 Dose 2022-0 No Unknown 6-24 00:00: 00 clobetasol 2022-0 No 1% 0.05 % 6-13 topical 00:00: ointment 00 ibuprofen 2022-0 No 1mg 800 mg 6-13 tablet 00:00: 00 clobetasol 2022-0 No 1% 0.05 % 6-13 topical 00:00: ointment 00 ibuprofen 2022-0 No 1mg 800 mg 6-13 tablet 00:00: 00 clobetasol 2022-0 No 1% 0.05 % 6-13 topical 00:00: ointment 00 ibuprofen 2022-0 No 1mg 800 mg 6-13 tablet 00:00: 00 clobetasol 2022-0 No 1% 0.05 % 6-13 topical 00:00: ointment 00 Dose 2022-0 No Unknown 6- 00:00: 00 clobetasol 2022-0 No 1% 0.05 % 6-13 topical 00:00: ointment 00 Dose 2022-0 No Unknown 6-13 00:00: 00 clobetasol 2022-0 No 1% 0.05 % 6-13 topical 00:00: ointment 00 Dose 2022-0 No Unknown 6-13 00:00: 00 gabapentin 2022-0 No 1mg 100 mg 3-31 capsule 00:00: 00 Dose 2022-0 No Unknown 3-31 00:00: 00 gabapentin 2022-0 No 1mg 100 mg 3-31 capsule 00:00: 00 Dose 2022-0 No Unknown 3-31 00:00: 00 gabapentin 2022-0 No 1mg 100 mg 3-31 capsule 00:00: 00 Dose 2022-0 No Unknown 3-31 00:00: 00 gabapentin 2022-0 No 1mg 100 mg 3-31 capsule 00:00: 00 Dose 2022-0 No Unknown 3-31 00:00: 00 gabapentin 2022-0 No 1mg 100 mg 3-31 capsule 00:00: 00 Dose 2022-0 No Unknown 3-31 00:00: 00 gabapentin 2022-0 No 1mg 100 mg 3-31 capsule 00:00: 00 Dose 2022-0 No Unknown 3-31 00:00: 00 HYDROcodone 2022-0 2022- No 1{tbl} 1 tablet, Univers -acetaminop 06-08 Oral, ity of hen (NORCO 22:00: 21:08 ONCE, 1 Yeyo as 5) 5-325 mg 00 :00 dose, On Medi elkin tablet 1 Sat Branch tablet 06/08/21 at 1700, DAVID methocarbam 0 2021- No 1000mg 1,000 mg, Univers oL [...] Sat Branch 06/08/21 at 1700, DAVID ibuprofen Yes [id number] 800mg Take 1 Univers 800 mg 3-26 tablet by ity of tablet 00:00: mouth 00 every 8 Medical (eight) Branch hours as needed for Pain (scale 4-6). methocarbam Yes [id number] 750mg Take 1 Univers oL 750 mg 3-26 tablet by ity o f tablet 00:00: mouth 4 00 (four) Medical times Branch daily as needed for Pain (scale 4-6). acetaminoph 2021- No [id number] 1{tbl} Take 1 U nivers en-codeine 06-08-03 tablet by ity of 300-30 mg 00:00: 04:59 mouth [place] tablet 00 :00 every 6 Medical (six) Branch hours as needed for Pain (scale 7-10) for up to 7 days. Indication s: acute pain naproxen Yes [id number] 500mg Take 1 Un sasha 500 mg 7-26 tablet by ity of tablet 00:00: mouth 2 (two) Medical times Branch daily with meals. naproxen Yes [id number] 500mg Take 1 Un sasha 500 mg 7-26 tablet by ity of tablet 00:00: mouth 2 (two) Medical times Branch daily with meals. naproxen Yes [id number] 500mg Take 1 Un sasha 500 mg 7-26 tablet by ity of tablet 00:00: mouth 2 [place] 00 (two) Medical times Branch daily with meals. amoxicillin 0 2020- No [id number] 875mg Take 1 Univers 875 mg 7-26 08-06 tablet by ity of tablet 00:00: 04:59 mouth 2 [place] 00 :00 (two) Medical times Branch daily for 10 days. triamcinolo 0 No 1% ne 1-12 acetonide 00:00: 0.5 % 00 topical ointment Prozac 10 0 No 1mg mg capsule 12 00:00: 00 Bromfed DM 2016-0 No 10mg/5 2 mg-30 1-12 mL mg-10 mg/5 00:00: mL syrup 00 triamcinolo 2016-0 No 1% ne 1-12 acetonide 00:00: 0.5 % 00 topical ointment Prozac 10 2016-0 No 1mg mg capsule 12 00:00: 00 Bromfed DM 2016-0 No 10mg/5 2 mg-30 1-12 mL mg-10 mg/5 00:00: mL syrup 00 triamcinolo 2016-0 No 1% ne 1-12 acetonide 00:00: 0.5 % 00 topical ointment Prozac 10 2016-0 No 1mg mg capsule 12 00:00: 00 Bromfed DM 2017-0 No 10mg/5 2 mg-30 1-12 mL mg-10 mg/5 00:00: mL syrup triamcinolo 2016-0 No 1% ne 1-12 acetonide 00:00: 0.5 % 00 topical ointment Prozac 10 2016-0 No 1mg mg capsule 12 00:00: 00 Bromfed DM 2017-0 No 10mg/5 2 mg-30 1-12 mL mg-10 mg/5 00:00: mL syrup 00 triamcinolo 2017-0 No 1% ne 1-12 acetonide 00:00: 0.5 % 00 topical ointment Prozac 10 2016-0 No 1mg mg capsule -12 00:00: 00 Bromfed DM 2017-0 No 10mg/5 2 mg-30 1-12 mL mg-10 mg/5 00:00: mL syrup 00 triamcinolo 2016-0 No 1% ne 1-12 acetonide 00:00: 0.5 % 00 topical ointment Proza 10 2016-0 No 1mg mg capsule 1-12 00:00: 00 Bromfed DM 2016-0 No 10mg/5 2 mg-30 1-12 mL mg-10 mg/5 00:00: mL syrup 00 Proza 10 2014-1 No 1mg mg capsule 0-05 00:00: 00 Prozac 10 2014-1 No 1mg mg capsule 0-05 00:00: 00 Prozac 10 2014-1 No 1mg mg capsule 0-05 00:00: 00 Proza 10 2014-1 No 1mg mg capsule 0-05 00:00: 00 Proza 10 1 No 1mg mg capsule 0-05 00:00: 00 Proza 10 2014-1 No 1mg mg capsule 0-05 00:00: 00 prednisone 2015-0 No 1mg 10 mg 8-31 tablet 00:00: 00 Proza 10 2014-0 No 1mg mg capsule 8- 00:00: 00 prednisone 2015-0 No 1mg 10 mg 8-31 tablet 00:00: 00 Proza 10 2014-0 No 1mg mg capsule 8-31 00:00: 00 prednisone 2015-0 No 1mg 10 mg 8-31 tablet 00:00: 00 Proza 10 2014-0 No 1mg mg capsule 8-31 00:00: 00 prednisone 2015-0 No 1mg 10 mg 8-31 tablet 00:00: 00 Proza 10 2014-0 No 1mg mg capsule 8-31 00:00: 00 prednisone 2015-0 No 1mg 10 mg 8-31 tablet 00:00: 00 prednisone 2015-0 No 1mg 10 mg 8-31 tablet 00:00: 00 Prozac 10 2014-0 No 1mg mg capsule 8-31 00:00: 00 Prozac 10 2014-0 No 1mg mg capsule 8-31 00:00: 00 phentermine 2012-03 Yes 37.5mg Take 37.5 Univers [...] with Medical breakfast. Branch levonorgest 2012-03 Yes [id number] 1{devic 1 Device Univers rel 2-03 e} by ity of (MIRENA) 20 23:49: Intrauteri [place] mcg/24 hour 43 ne route Medi elkin (5 years) once now. Branc h IUD levonorgest 2012-03 Yes [id number] 1{devic 1 Device Univers rel 2-03 e} by ity of (MIRENA) 20 23:49: Intrauteri [place] mcg/24 hour 43 ne route Medi elkin (5 years) once now. Branc h IUD levonorgest 2012-03 Yes [id number] 1{devic 1 Device Univers rel 2-03 e} by ity of (MIRENA) 20 17:49: Intrauteri [place] mcg/24 hour 43 ne route Medi elkin (5 years) once now. Branc h IUD levonorgest 2012-03 Yes [id number] 1{devic 1 Device Univers rel 2-03 e} by ity of (MIRENA) 20 17:49: Intrauteri [place] mcg/24 hour 43 ne route Medi elkin (5 years) once now. Branc h IUD Immunizations Ordered Filled Immunization Date Status Comments Sourc e Immunization Name Name Influenza Virus 2008-05-03 Completed Universit y of Vaccine 00:00:00 [facility] Influenza Virus 2008-05-03 Completed Universit y of Vaccine 00:00:00 [facility] Influenza Virus 2008-05-03 Completed Universit y of Vaccine 00:00:00 [facility] Influenza Virus 2008-05-03 Completed Universit y of Vaccine 00:00:00 [facility] Rubella 2007-10-26 Completed University of 00:00:00 [place] [facility] Rubella 2007-10-26 Completed University of 00:00:00 [place] [facility] Rubella 2007-10-26 Completed University of 00:00:00 [place] [facility] Rubella 2007-10-26 Completed University of 00:00:00 [place] [facility] Td 1998-03-16 Completed University of 00:00:00 [place] [facility] Td 1998-03-16 Completed University of 00:00:00 [place] [facility] Td 1998-03-16 Completed University of 00:00:00 [place] [facility] Td 1998-03-16 Completed University of 00:00:00 [facility] Vital Signs Vital Name Observation Time Observation Value Comments Source Systolic blood 2021-06-08 21:37:54 107 mm[Hg] Univer sity of pressure [facility] Diastolic blood 2021-06-08 21:37:54 74 mm[Hg] Unive rsity of pressure [facility] Heart rate 2021-06-08 21:37:54 79 /min Univers ty [facility] Body temperature 2021-06-08 21:37:54 37.06 [place] [facility] Respiratory rate 2021-06-08 21:37:54 18 /min [facility] Oxygen saturation in 2021-06-08 21:37:54 98 /min University of Arterial blood by [facility] [place] Pulse oximetry Branch Body weight 2021-06-08 20:33:00 90.719 kg [facility] BMI 2021-06-08 20:33:00 34.33 kg/m2 [facility] Systolic blood 2020-10-08 21:31:00 116 mm[Hg] Univer sity of pressure [facility] Diastolic blood 2020-10-08 21:31:00 69 mm[Hg] Unive rsity of pressure [facility] Heart rate 2020-10-08 21:31:00 59 /min Univers ty [facility] Body temperature 2020-10-08 21:31:00 37.28 [place] Univ ersity of [facility] Respiratory rate 2020-10-08 21:31:00 16 /min Univ ersity of [facility] Body height 2020-10-08 21:31:00 162.6 cm Univers ty [facility] Body weight 2020-10-08 21:31:00 90.719 kg [facility] BMI 2020-10-08 21:31:00 34.33 kg/m2 [facility] Oxygen saturation in 2020-10-08 21:31:00 94 /min [facility] blood by [facility] [place] Pulse oximetry Branch BP Systolic 2022-02-11 10:44:00 98 mm[Hg] BP Diastolic 2022-02-11 10:44:00 67 mm[Hg] Weight Measured 2022-02-11 10:44:00 251.20 pounds Height Measured 2022-02-11 10:44:00 64.00 inches Body Temperature 2022-02-11 10:44:00 98.00 degrees Heart Rate 2022-02-11 10:44:00 68.00 /min Respiratory Rate 2022-02-11 10:44:00 18.00 /min BP Systolic 2022-01-30 08:16:00 100 mm[Hg] BP Diastolic 2022-01-30 08:16:00 70 mm[Hg] Weight Measured 2022-01-30 08:16:00 251.00 pounds Height Measured 2022-01-30 08:16:00 64.00 inches Body Temperature 2022-01-30 08:16:00 98.60 degrees Heart Rate 2022-01-30 08:16:00 70.00 /min Respiratory Rate 2022-01-30 08:16:00 18.00 /min BP Systolic 2021-12-23 10:12:00 114 mm[Hg] BP Diastolic 2021-12-23 10:12:00 77 mm[Hg] Weight Measured 2021-12-23 10:12:00 Height Measured 2021-12-23 10:12:00 64.00 inches Body Temperature 2021-12-23 10:12:00 97.50 degrees Heart Rate 2021-12-23 10:12:00 97.50 /min Respiratory Rate 2021-12-23 10:12:00 17.00 /min BP Systolic 2021-11-19 11:29:00 129 mm[Hg] BP Diastolic 2021-11-19 11:29:00 77 mm[Hg] Weight Measured 2021-11-19 11:29:00 243.20 pounds Height Measured 2021-11-19 11:29:00 64.00 inches Body Temperature 2021-11-19 11:29:00 97.90 degrees Heart Rate 2021-11-19 11:29:00 78.00 /min Respiratory Rate 2021-11-19 11:29:00 18.00 /min BP Systolic 2021-09-25 11:03:00 112 mm[Hg] BP Diastolic 2021-09-25 11:03:00 71 mm[Hg] Weight Measured 2021-09-25 11:03:00 229.80 pounds Height Measured 2021-09-25 11:03:00 64.00 inches Body Temperature 2021-09-25 11:03:00 98.30 degrees Heart Rate 2021-09-25 11:03:00 67.00 /min Respiratory Rate 2021-09-25 11:03:00 19.00 /min BP Systolic 2021-09-23 09:14:00 BP Diastolic 2021-09-23 09:14:00 Weight Measured 2021-09-23 09:14:00 220.00 pounds Height Measured 2021-09-23 09:14:00 64.00 inches Body Temperature 2021-09-23 09:14:00 Heart Rate 2021-09-23 09:14:00 Respiratory Rate 2021-09-23 09:14:00 BP Systolic 2021-09-09 08:20:00 102 mm[Hg] BP Diastolic 2021-09-09 08:20:00 70 mm[Hg] Weight Measured 2021-09-09 08:20:00 232.60 pounds Height Measured 2021-09-09 08:20:00 64.00 inches Body Temperature 2021-09-09 08:20:00 97.70 degrees Heart Rate 2021-09-09 08:20:00 89.00 /min Respiratory Rate 2021-09-09 08:20:00 16.00 /min BP Systolic 2021-08-29 17:09:00 109 mm[Hg] BP Diastolic 2021-08-29 17:09:00 73 mm[Hg] Weight Measured 2021-08-29 17:09:00 232.40 pounds Height Measured 2021-08-29 17:09:00 64.00 inches Body Temperature 2021-08-29 17:09:00 98.00 degrees Heart Rate 2021-08-29 17:09:00 80.00 /min Respiratory Rate 2021-08-29 17:09:00 16.00 /min BP Systolic 2021-08-26 11:33:00 BP Diastolic 2021-08-26 11:33:00 Weight Measured 2021-08-26 11:33:00 228.00 pounds Height Measured 2021-08-26 11:33:00 64.00 inches Body Temperature 2021-08-26 11:33:00 98.30 degrees Heart Rate 2021-08-26 11:33:00 84.00 /min Respiratory Rate 2021-08-26 11:33:00 18.00 /min BP Systolic 2021-06-13 11:55:00 126 mm[Hg] BP Diastolic 2021-06-13 11:55:00 78 mm[Hg] Weight Measured 2021-06-13 11:55:00 219.00 pounds Height Measured 2021-06-13 11:55:00 64.17 inches Body Temperature 2021-06-13 11:55:00 98.10 degrees Heart Rate 2021-06-13 11:55:00 78.00 /min Respiratory Rate 2021-06-13 11:55:00 BP Systolic 2021-04-11 10:57:00 100 mm[Hg] BP Diastolic 2021-04-11 10:57:00 69 mm[Hg] Weight Measured 2021-04-11 10:57:00 206.40 pounds Height Measured 2021-04-11 10:57:00 64.17 inches Body Temperature 2021-04-11 10:57:00 98.80 degrees Heart Rate 2021-04-11 10:57:00 76.00 /min Respiratory Rate 2021-04-11 10:57:00 16.00 /min BP Systolic 2019-10-12 14:46:00 121 mm[Hg] BP Diastolic 2019-10-12 14:46:00 79 mm[Hg] Weight Measured 2019-10-12 14:46:00 238.40 pounds Height Measured 2019-10-12 14:46:00 64.17 inches Body Temperature 2019-10-12 14:46:00 98.80 degrees Heart Rate 2019-10-12 14:46:00 81.00 /min Respiratory Rate 2019-10-12 14:46:00 Respiratory Rate 2016-03-27 08:55:00 18.00 /min BP Systolic 2016-03-27 08:55:00 113 mm[Hg] BP Diastolic 2016-03-27 08:55:00 76 mm[Hg] Weight Measured 2016-03-27 08:55:00 176.20 pounds Height Measured 2016-03-27 08:55:00 64.17 inches Body Temperature 2016-03-27 08:55:00 98.20 degrees Heart Rate 2016-03-27 08:55:00 82.00 /min BP Systolic 2014-11-27 10:08:00 114 mm[Hg] BP Diastolic 2014-11-27 10:08:00 76 mm[Hg] Weight Measured 2014-11-27 10:08:00 222.40 pounds Height Measured 2014-11-27 10:08:00 64.00 inches Body Temperature 2014-11-27 10:08:00 97.70 degrees Heart Rate 2014-11-27 10:08:00 72.00 /min Respiratory Rate 2014-11-27 10:08:00 16.00 /min BP Systolic 2014-11-27 09:59:00 114 mm[Hg] BP Diastolic 2014-11-27 09:59:00 76 mm[Hg] Weight Measured 2014-11-27 09:59:00 222.40 pounds Height Measured 2014-11-27 09:59:00 64.00 inches Body Temperature 2014-11-27 09:59:00 97.70 degrees Heart Rate 2014-11-27 09:59:00 72.00 /min Respiratory Rate 2014-11-27 09:59:00 16.00 /min Procedures Procedure Date / Time Performed Performing Clinician [facility] e CONSENT/REFUSAL FOR 2021-06-08 20:26:40 Doctor Unassigned, No [facility] [place] DIAGNOSIS AND Name Medical Branch TREATMENT POCT TEST 2020-10-08 21:38:00 [facility] CONSENT/REFUSAL FOR 2020-10-08 21:18:59 Doctor Unassigned, No [facility] [place] DIAGNOSIS AND Name Medical Branch TREATMENT NOTICE OF PRIVACY 2020-10-08 21:18:38 Doctor Unassigned, No [facility] [place] PRACTICES Name Medical Branch Plan of Care Planned Activity Planned Date Details Comments Source Goal Plan of Care Note [code = 50968-0] Goal Plan of Care Note [code = 49116-9] Goal Plan of Care Note [code = 25320-6] Goal Plan of Care Note [code = 91774-2] Goal Plan of Care Note [code = 98802-3] Goal Plan of Care Note [code = 58500-3] Goal Plan of Care Note [code = 32866-6] Goal Plan of Care Note [code = 08189-9] Goal Plan of Care Note [code = 91194-7] Goal Plan of Care Note [code = 77961-3] Goal Plan of Care Note [code = 09930-4] Goal Plan of Care Note [code = 02167-1] Goal Plan of Care Note [code = 98377-8] Goal Plan of Care Note [code = 13650-3] Goal Plan of Care Note [code = 56415-6] Goal Plan of Care Note [code = 68529-8] Goal Plan of Care Note [code = 81037-9] Goal Plan of Care Note [code = 24237-0] Goal Plan of Care Note [code = 20443-4] Goal Plan of Care Note [code = 19081-7] Goal Plan of Care Note [code = 37651-9] Goal Plan of Care Note [code = 13106-4] Goal Plan of Care Note [code = 38914-1] Goal Plan of Care Note [code = 13675-4] Goal Plan of Care Note [code = 73195-4] Goal Plan of Care Note [code = 05410-9] Goal Plan of Care Note [code = 32569-8] Goal Plan of Care Note [code = 34225-5] Goal Plan of Care Note [code = 97779-4] Goal Plan of Care Note [code = 73084-3] Goal Plan of Care Note [code = 91651-2] Goal Plan of Care Note [code = 50227-6] Goal Plan of Care Note [code = 15635-6] Goal Plan of Care Note [code = 30939-9] Goal Plan of Care Note [code = 18863-6] Goal Plan of Care Note [code = 29997-5] Goal Plan of Care Note [code = 97415-8] Goal Plan of Care Note [code = 62118-6] Goal Plan of Care Note [code = 00559-7] Goal Plan of Care Note [code = 71972-4] Goal Plan of Care Note [code = 05976-4] Goal Plan of Care Note [code = 16115-0] Goal Plan of Care Note [code = 05640-9] Goal Plan of Care Note [code = 21933-9] Goal Plan of Care Note [code = 48785-6] Goal Plan of Care Note [code = 13657-3] Goal Plan of Care Note [code = 46458-8] Goal Plan of Care Note [code = 52059-3] Goal Plan of Care Note [code = 17573-6] Goal Plan of Care Note [code = 19400-5] Goal Plan of Care Note [code = 67669-4] Goal Plan of Care Note [code = 84146-0] Goal Plan of Care Note [code = 23290-3] Goal Plan of Care Note [code = 43963-0] Goal Plan of Care Note [code = 22428-8] Goal Plan of Care Note [code = 63204-1] Goal Plan of Care Note [code = 95858-8] Goal Plan of Care Note [code = 47048-8] Goal Plan of Care Note [code = 09263-5] Goal Plan of Care Note [code = 94235-5] Goal Plan of Care Note [code = 38034-1] Goal Plan of Care Note [code = 43161-5] Goal Plan of Care Note [code = 98977-9] Goal Plan of Care Note [code = 72115-8] Goal Plan of Care Note [code = 22386-7] Goal Plan of Care Note [code = 23874-0] Goal Plan of Care Note [code = 13114-4] Goal Plan of Care Note [code = 43042-1] Goal Plan of Care Note [code = 16260-3] Goal Plan of Care Note [code = 47841-7] Goal Plan of Care Note [code = 64578-4] Goal Plan of Care Note [code = 19266-7] Goal Plan of Care Note [code = 36048-1] Goal Plan of Care Note [code = 56396-6] Goal Plan of Care Note [code = 52346-9] Goal Plan of Care Note [code = 71827-1] Goal Plan of Care Note [code = 20272-7] Goal Plan of Care Note [code = 83922-8] Goal Plan of Care Note [code = 60697-7] Goal Plan of Care Note [code = 51893-1] Goal Plan of Care Note [code = 31910-2] Goal Plan of Care Note [code = 86892-2] Goal Plan of Care Note [code = 08435-9] Goal Plan of Care Note [code = 12068-9] Goal Plan of Care Note [code = 27647-9] Goal Plan of Care Note [code = 41815-2] Goal Plan of Care Note [code = 07880-3] Goal Plan of Care Note [code = 32489-7] Goal Plan of Care Note [code = 62476-8] Goal Plan of Care Note [code = 29811-4] Goal Plan of Care Note [code = 12351-6] Goal Plan of Care Note [code = 88532-6] Goal Plan of Care Note [code = 77303-2] Goal Plan of Care Note [code = 67712-2] Goal Plan of Care Note [code = 54160-8] Goal Plan of Care Note [code = 09437-9] Goal Plan of Care Note [code = 42269-5] Goal Plan of Care Note [code = 88170-1] Goal Plan of Care Note [code = 31238-2] Goal Plan of Care Note [code = 58009-8] Goal Plan of Care Note [code = 14962-1] Goal Plan of Care Note [code = 88780-9] Goal Plan of Care Note [code = 71286-7] Goal Plan of Care Note [code = 27028-6] Goal Plan of Care Note [code = 83476-3] Goal Plan of Care Note [code = 52894-6] Goal Plan of Care Note [code = 64779-8] Goal Plan of Care Note [code = 00528-9] Goal Plan of Care Note [code = 99721-8] Goal Plan of Care Note [code = 21127-1] Goal Plan of Care Note [code = 29989-5] Goal Plan of Care Note [code = 22567-1] Goal Plan of Care Note [code = 65787-5] Goal Plan of Care Note [code = 52252-1] Goal Plan of Care Note [code = 69500-8] Goal Plan of Care Note [code = 18818-2] Goal Plan of Care Note [code = 36212-4] Goal Plan of Care Note [code = 85942-2] Goal Plan of Care Note [code = 77208-6] Goal Plan of Care Note [code = 94159-0] Goal Plan of Care Note [code = 54705-9] Goal Plan of Care Note [code = 56136-7] Goal Plan of Care Note [code = 59845-1] Goal Plan of Care Note [code = 15332-1] Goal Plan of Care Note [code = 03002-7] Goal Plan of Care Note [code = 43500-4] Goal Plan of Care Note [code = 32548-4] Goal Plan of Care Note [code = 28457-1] Goal Plan of Care Note [code = 87270-6] Goal Plan of Care Note [code = 96555-3] Goal Plan of Care Note [code = 17295-8] Goal Plan of Care Note [code = 01885-1] Goal Plan of Care Note [code = 60569-7] Goal Plan of Care Note [code = 22611-2] Goal Plan of Care Note [code = 68755-9] Encounters Start End Encounter Admission Attending Care Care Encounter Source Date/Time Date/Time Type Type Clinicians Facility Department ID 2022-03-25 2022-03-25 Outpatient [facility] [id number] Abhijit 09:47:58 09:47:58 0110 F Kunal 2022-02-11 2022-02-11 Outpatient [facility] [id number] 022 Abhijit 10:38:03 10:38:03 1129 F Kunal 2022-02-11 2022-02-11 Outpatient dkh3wr0i- [id number] ea e5ws7r-y 00:00:00 00:00:00 Visit hz3z-9730 n3s-2244-w -i648-0v0 246-5d2bc4 bz1228v60 2022-01-30 2022-01-30 Outpatient [facility] [id number] 022 Abhijit 08:12:07 08:12:07 1117 F Kunal 2022-01-30 2022-01-30 Outpatient 3l09t1ue- [id number] 7b 05f4zs-6 00:00:00 00:00:00 Visit 7aac-4b37 aac-4b37-b -gd3q-08d f8c-31q225 208j0a4ih f5b5da 2021-12-23 2021-12-23 Outpatient SFA SFA 57846-1 022 Abhijit 10:06:30 10:06:30 1010 F Kunal 2021-12-23 2021-12-23 Outpatient 0oq1c24n- [id number] 6e f1b71i-7 00:00:00 00:00:00 Visit 4644-4df8 644-4df8-8 -832f-715 32f-715e84 l40sov21f aab02d 2021-11-19 2021-11-19 Outpatient hbk888ve- [id number] ad x466vw-j 00:00:00 00:00:00 Visit cm32-1l1i n65-8f8d-g -n302-57j 765-82w085 1443g627m 9v484e 2021-09-25 2021-09-25 Outpatient 5r74273g- [id number] 1e 30980e-n 00:00:00 00:00:00 Visit y3g6-1a20 0x0-6n57-s -m397-d5u 976-d3ac12 g28ho5yu5 de8aa1 2021-09-23 2021-09-23 Outpatient 1661i55m- [id number] 39 83w99l-0 00:00:00 00:00:00 Visit 3572-4f85 572-4f85-9 -2v4f-34u k6m-15e3f1 5a42g302z 0n582m 2021-06-08 2021-06-08 Emergency X HA, [facility] ERT [id number] Univers 15:37:00 16:46:[address] [facility] 2021-06-08 2021-06-08 Emergency Ha, [facility] [id number] Univers 15:37:00 16:46:00 Tee ACOSTA 350.1.13.10 [facility] [address] [facility] [id number] [address] 2021-06-08 2021-06-08 Orders Doctor TONI 1.2.840.114 [id number] Univers 00:00:00 00:00:00 Only Unassigned, SUSANA 350.1.13.10 ity of [facility] 4.2.7.2.686 Yeyo as [id number] [address] 2020-10-08 2020-10-08 Emergency Jorge, [facility] 1.2.840.114 [id number] Univers 16:35:00 17:12:00 Radha Roxie Acosta 350.1.13.10 ity of [place] 4.2.7.2.686 [facility] [id number] [address] 2020-10-08 2020-10-08 Emergency X [facility] ERT [id number] Univers 16:19:00 16:19:00 ity of [facility] 2020-10-08 2020-10-08 Orders Doctor TONI [id number] Univers 00:00:00 00:00:00 Only Unassigned, SUSANA 350.1.13.10 ity of [facility] 4.2.7.2.686 Yeyo as [id number] [address] 2016-04-14 2016-04-14 [facility] [id number] Memoria 14:30:00 14:30:00 00 junior Mora 2016-04-14 2016-04-14 Outpatient [facility] [id number] Memoria 14:30:00 14:30:00 00 junior Mora Results Test Description Test Time Test Comments Results Result Comments Source CBC W/AUTO DIFF 2022-01-31 00:00:00 Test Item Value Reference Range Interpretation Comme nts WBC (test code = 1001) 6.4 K/UL RBC (test code = 1002) 4.46 M/UL HEMOGLOBIN (test code = 1003) 13.4 G/DL HEMATOCRIT (test code = 1004) 41.0 % MCV (test code = 1005) 91.9 fL MCH (test code = 1006) 30.0 PG MCHC (test code = 1007) 32.7 G/DL RDW (test code = 1038) 13.0 % NEUTROPHILS (test code = 1008) 53.5 % LYMPHOCYTES (test code = 1010) 37.1 % MONOCYTES (test code = 1011) 7.0 % EOSINOPHILS (test code = 1012) 1.7 % BASOPHILS (test code = 1013) 0.5 % IMMATURE GRANULOCYTES (test code = 1036) 0.2 % NUCLEATED RBCS (test code = 1065) 0.0 /100WBC'S PLATELET COUNT (test code = 1015) 293 K/UL ABSOLUTE NEUTROPHILS (test code = 1066) 3.44 K/UL ABSOLUTE LYMPHOCYTES (test code = 1067) 2.38 K/UL ABSOLUTE MONOCYTES (test code = 1068) 0.45 K/UL ABSOLUTE EOSINOPHILS (test code = 1040) 0.11 K/UL ABSOLUTE BASOPHILS (test code = 1069) 0.03 K/UL ABS IMMATURE GRANULOCYTES (test code = 1020) 0.01 K/UL ABS NUCLEATED RBCS (test code = 82833) 0.00 K/UL CBC W/AUTO [id number] 00:00:00 Test Item Value Reference Range Interpretation Comments WBC (test code = 1001) 6.4 K/UL RBC (test code = 1002) 4.46 M/UL HEMOGLOBIN (test code = 1003) 13.4 G/DL HEMATOCRIT (test code = 1004) 41.0 % MCV (test code = 1005) 91.9 fL MCH (test code = 1006) 30.0 PG MCHC (test code = 1007) 32.7 G/DL RDW (test code = 1038) 13.0 % NEUTROPHILS (test code = 1008) 53.5 % LYMPHOCYTES (test code = 1010) 37.1 % MONOCYTES (test code = 1011) 7.0 % EOSINOPHILS (test code = 1012) 1.7 % BASOPHILS (test code = 1013) 0.5 % IMMATURE GRANULOCYTES (test 0.2 % code = 1036) NUCLEATED RBCS (test code = 0.0 /100WBC'S 1065) PLATELET COUNT (test code = 293 K/UL 1015) ABSOLUTE NEUTROPHILS (test code 3.44 K/UL = 1066) ABSOLUTE LYMPHOCYTES (test code 2.38 K/UL = 1067) ABSOLUTE MONOCYTES (test code = 0.45 K/UL 1068) ABSOLUTE EOSINOPHILS (test code 0.11 K/UL = 1040) ABSOLUTE BASOPHILS (test code = 0.03 K/UL 1069) ABS IMMATURE GRANULOCYTES (test 0.01 K/UL code = 1020) ABS NUCLEATED RBCS (test code = 0.00 K/UL 67662) CBC W/AUTO [id number] 00:00:00 Test Item Value Reference Range Interpretation Comments WBC (test code = 1001) 6.4 K/UL RBC (test code = 1002) 4.46 M/UL HEMOGLOBIN (test code = 1003) 13.4 G/DL HEMATOCRIT (test code = 1004) 41.0 % MCV (test code = 1005) 91.9 fL MCH (test code = 1006) 30.0 PG MCHC (test code = 1007) 32.7 G/DL RDW (test code = 1038) 13.0 % NEUTROPHILS (test code = 1008) 53.5 % LYMPHOCYTES (test code = 1010) 37.1 % MONOCYTES (test code = 1011) 7.0 % EOSINOPHILS (test code = 1012) 1.7 % BASOPHILS (test code = 1013) 0.5 % IMMATURE GRANULOCYTES (test 0.2 % code = 1036) NUCLEATED RBCS (test code = 0.0 /100WBC'S 1065) PLATELET COUNT (test code = 293 K/UL 1015) ABSOLUTE NEUTROPHILS (test code 3.44 K/UL = 1066) ABSOLUTE LYMPHOCYTES (test code 2.38 K/UL = 1067) ABSOLUTE MONOCYTES (test code = 0.45 K/UL 1068) ABSOLUTE EOSINOPHILS (test code 0.11 K/UL = 1040) ABSOLUTE BASOPHILS (test code = 0.03 K/UL 1069) ABS IMMATURE GRANULOCYTES (test 0.01 K/UL code = 1020) ABS NUCLEATED RBCS (test code = 0.00 K/UL 71417) LIVER (HEPATIC) FUNCTION [id number] 00:00:00 Test Item Value Reference Range Interpretation Comments PROTEIN, TOTAL (test code = 2229) 7.9 G/DL ALBUMIN (test code = 2201) 4.3 G/DL BILIRUBIN, TOTAL (test code = 2207) 0.4 MG/DL BILIRUBIN, DIRECT (test code = 0.1 MG/DL 2021) ALKALINE PHOSPHATASE (test code = 73 U/L 2203) AST (test code = 2218) 23 U/L ALT (test code = 2219) 26 U/L LIVER (HEPATIC) FUNCTION [id number] 00:00:00 Test Item Value Reference Range Interpretation Comments PROTEIN, TOTAL (test code = 2229) 7.9 G/DL ALBUMIN (test code = 2201) 4.3 G/DL BILIRUBIN, TOTAL (test code = 2207) 0.4 MG/DL BILIRUBIN, DIRECT (test code = 0.1 MG/DL 2021) ALKALINE PHOSPHATASE (test code = 73 U/L 2203) AST (test code = 2218) 23 U/L ALT (test code = 2219) 26 U/L BASIC METABOLIC [id number] 00:00:00 Test Item Value Reference Range Interpretation Comments GLUCOSE (test code = 2217) 103 MG/DL BUN (test code = 2208) 14 MG/DL CREATININE (test code = 2214) 0.68 MG/DL eGFR (2020 CKD-EPI) (test 114 ML/MIN/1.73 code = 47643) SODIUM (test code = 2231) 144 MEQ/L POTASSIUM (test code = 2228) 4.5 MEQ/L CHLORIDE (test code = 2215) 107 MEQ/L CARBON DIOXIDE (test code = 27 MEQ/L 2206) CALCIUM (test code = 2209) 10.0 MG/DL BASIC METABOLIC [id number] 00:00:00 Test Item Value Reference Range Interpretation Comments GLUCOSE (test code = 2217) 103 MG/DL BUN (test code = 2208) 14 MG/DL CREATININE (test code = 2214) 0.68 MG/DL eGFR (2020 CKD-EPI) (test 114 ML/MIN/1.73 code = 27488) SODIUM (test code = 2231) 144 MEQ/L POTASSIUM (test code = 2228) 4.5 MEQ/L CHLORIDE (test code = 2215) 107 MEQ/L CARBON DIOXIDE (test code = 27 MEQ/L 2206) CALCIUM (test code = 2209) 10.0 MG/DL H. PYLORI (BREATH)2021-09-05 13:02:07 Test Item Value Reference Range Interpretation Comments H. PYLORI (BREATH) NEGATIVE NEGATIVE UNLESS O THERWISE (test code = 60652) INDICATE D, ALL TESTING PERFORMED [facility] PATHOLOG[facility] [employer] [address] [place] [address] RAINA BURTON DIRECTOR: LUIZ STUBBS M.D. CLIA NUMBER [id number] CAP ACCREDITATION N O. [id number] HEMOGLOBIN [id number] 04:43:10 Test Item Value Reference Range Interpretation Comments HEMOGLOBIN A1c (test code = 21076) 5.5 % 4.2-5.6 LIPID [id number] 03:04:55 Test Item Value Reference Range Interpretation Comments CHOLESTEROL (test 138 MG/DL <200 code = 2210) TRIGLYCERIDES (test 114 MG/DL <150 code = 2232) HDL CHOLESTEROL (test 45 MG/DL >39 code = 2220) CALC LDL CHOL (test 73 MG/DL <100 NOTE: C ALCULATED LDL code = 2237) IS BASED ON EFREN-GUNN METHOD WHICHINCLUDES ADJUSTABLE TRIGLYCERIDE:VL DL CHOLESTEROL RAT IO.THIS FACTOR VARIES B Y MEASURED TRIGLY CERIDE AND NON-HDLCHOL ESTEROL CONCENTRATIONS WITH INCREASED CALCU LATED LDL SEENIN HIGH ER TRIGLYCERIDE OR LOWER NON-HDL SPECIME NS. FOR MOREINFORMATION , SEE CLIENT ANNOUNCE MENT AT [email or web address] RISK RATIO LDL/HDL 1.62 RATIO <3.22 UNLESS O THERWISE (test code = 2238) INDICATED , ALL TESTING PERFORMED [facility] PATH[facility], [address] [address] RAINA BURTON DIRECTOR: LUIZ STUBBS M.D. CLIA NUMBER [id number] CAP ACCREDITATION N O. [id number] HEMOGLOBIN [id number] 00:00:00 Test Item Value Reference Range Interpretation Comments HEMOGLOBIN A1c (test code = 16501) 5.5 % HEMOGLOBIN [id number] 00:00:00 Test Item Value Reference Range Interpretation Comments HEMOGLOBIN A1c (test code = 11330) 5.5 % H. PYLORI (BREATH)2021-09-05 00:00:00 Test Item Value Reference Range Interpretation Comments H. PYLORI (BREATH) (test code = NEGATIVE 83202) LIPID [id number] 00:00:00 Test Item Value Reference Range Interpretation Comments CHOLESTEROL (test code = 2210) 138 MG/DL TRIGLYCERIDES (test code = 2232) 114 MG/DL HDL CHOLESTEROL (test code = 2220) 45 MG/DL CALC LDL CHOL (test code = 2237) 73 MG/DL RISK RATIO LDL/HDL (test code = 1.62 RATIO 2238) HEMOGLOBIN [id number] 00:00:00 Test Item Value Reference Range Interpretation Comments HEMOGLOBIN A1c (test code = 35720) 5.5 % H. PYLORI (BREATH)2021-09-05 00:00:00 Test Item Value Reference Range Interpretation Comments H. PYLORI (BREATH) (test code = NEGATIVE 76483) HEMOGLOBIN [id number] 00:00:00 Test Item Value Reference Range Interpretation Comments HEMOGLOBIN A1c (test code = 85662) 5.5 % H. PYLORI (BREATH)2021-09-05 00:00:00 Test Item Value Reference Range Interpretation Comments H. PYLORI (BREATH) (test code = NEGATIVE 85522) HEMOGLOBIN [id number] 00:00:00 Test Item Value Reference Range Interpretation Comments HEMOGLOBIN A1c (test code = 29429) 5.5 % HEMOGLOBIN [id number] 00:00:00 Test Item Value Reference Range Interpretation Comments HEMOGLOBIN A1c (test code = 24979) 5.5 % H. PYLORI (BREATH)2021-09-05 00:00:00 Test Item Value Reference Range Interpretation Comments H. PYLORI (BREATH) (test code = NEGATIVE 99895) LIPID [id number] 00:00:00 Test Item Value Reference Range Interpretation Comments CHOLESTEROL (test code = 2210) 138 MG/DL TRIGLYCERIDES (test code = 2232) 114 MG/DL HDL CHOLESTEROL (test code = 2220) 45 MG/DL CALC LDL CHOL (test code = 2237) 73 MG/DL RISK RATIO LDL/HDL (test code = 1.62 RATIO 2238) LIPID [id number] 00:00:00 Test Item Value Reference Range Interpretation Comments CHOLESTEROL (test code = 2210) 138 MG/DL TRIGLYCERIDES (test code = 2232) 114 MG/DL HDL CHOLESTEROL (test code = 2220) 45 MG/DL CALC LDL CHOL (test code = 2237) 73 MG/DL RISK RATIO LDL/HDL (test code = 1.62 RATIO 2238) HEMOGLOBIN [id number] 00:00:00 Test Item Value Reference Range Interpretation Comments HEMOGLOBIN A1c (test code = 65129) 5.5 % LIPID [id number] 00:00:00 Test Item Value Reference Range Interpretation Comments CHOLESTEROL (test code = 2210) 138 MG/DL TRIGLYCERIDES (test code = 2232) 114 MG/DL HDL CHOLESTEROL (test code = 2220) 45 MG/DL CALC LDL CHOL (test code = 2237) 73 MG/DL RISK RATIO LDL/HDL (test code = 1.62 RATIO 2238) HEMOGLOBIN [id number] 00:00:00 Test Item Value Reference Range Interpretation Comments HEMOGLOBIN A1c (test code = 41066) 5.5 % H. PYLORI (BREATH)2021-09-05 00:00:00 Test Item Value Reference Range Interpretation Comments H. PYLORI (BREATH) (test code = NEGATIVE 20783) HEMOGLOBIN [id number] 00:00:00 Test Item Value Reference Range Interpretation Comments HEMOGLOBIN A1c (test code = 73882) 5.5 % HEMOGLOBIN [id number] 00:00:00 Test Item Value Reference Range Interpretation Comments HEMOGLOBIN A1c (test code = 46071) 5.5 % H. PYLORI (BREATH)2021-09-05 00:00:00 Test Item Value Reference Range Interpretation Comments H. PYLORI (BREATH) (test code = NEGATIVE 03964) LIPID [id number] 00:00:00 Test Item Value Reference Range Interpretation Comments CHOLESTEROL (test code = 2210) 138 MG/DL TRIGLYCERIDES (test code = 2232) 114 MG/DL HDL CHOLESTEROL (test code = 2220) 45 MG/DL CALC LDL CHOL (test code = 2237) 73 MG/DL RISK RATIO LDL/HDL (test code = 1.62 RATIO 2238) LIPID [id number] 00:00:00 Test Item Value Reference Range Interpretation Comments CHOLESTEROL (test code = 2210) 138 MG/DL TRIGLYCERIDES (test code = 2232) 114 MG/DL HDL CHOLESTEROL (test code = 2220) 45 MG/DL CALC LDL CHOL (test code = 2237) 73 MG/DL RISK RATIO LDL/HDL (test code = 1.62 RATIO 2238) H. PYLORI (BREATH)2021-09-05 00:00:00 Test Item Value Reference Range Interpretation Comments H. PYLORI (BREATH) (test code = NEGATIVE 04422) HEMOGLOBIN [id number] 00:00:00 Test Item Value Reference Range Interpretation Comments HEMOGLOBIN A1c (test code = 15210) 5.5 % HEMOGLOBIN [id number] 00:00:00 Test Item Value Reference Range Interpretation Comments HEMOGLOBIN A1c (test code = 38392) 5.5 % H. PYLORI (BREATH)2021-09-05 00:00:00 Test Item Value Reference Range Interpretation Comments H. PYLORI (BREATH) (test code = NEGATIVE 94238) HEMOGLOBIN [id number] 00:00:00 Test Item Value Reference Range Interpretation Comments HEMOGLOBIN A1c (test code = 58099) 5.5 % LIPID [id number] 00:00:00 Test Item Value Reference Range Interpretation Comments CHOLESTEROL (test code = 2210) 138 MG/DL TRIGLYCERIDES (test code = 2232) 114 MG/DL HDL CHOLESTEROL (test code = 2220) 45 MG/DL CALC LDL CHOL (test code = 2237) 73 MG/DL RISK RATIO LDL/HDL (test code = 1.62 RATIO 2238) LIPID [id number] 00:00:00 Test Item Value Reference Range Interpretation Comments CHOLESTEROL (test code = 2210) 138 MG/DL TRIGLYCERIDES (test code = 2232) 114 MG/DL HDL CHOLESTEROL (test code = 2220) 45 MG/DL CALC LDL CHOL (test code = 2237) 73 MG/DL RISK RATIO LDL/HDL (test code = 1.62 RATIO 2238) HEMOGLOBIN [id number] 00:00:00 Test Item Value Reference Range Interpretation Comments HEMOGLOBIN A1c (test code = 22589) 5.5 % H. PYLORI (BREATH)2021-09-05 00:00:00 Test Item Value Reference Range Interpretation Comments H. PYLORI (BREATH) (test code = NEGATIVE 88597) H. PYLORI (BREATH)2021-09-05 00:00:00 Test Item Value Reference Range Interpretation Comments H. PYLORI (BREATH) (test code = NEGATIVE 35684) HEMOGLOBIN [id number] 00:00:00 Test Item Value Reference Range Interpretation Comments HEMOGLOBIN A1c (test code = 08277) 5.5 % HEMOGLOBIN [id number] 00:00:00 Test Item Value Reference Range Interpretation Comments HEMOGLOBIN A1c (test code = 38826) 5.5 % LIPID [id number] 00:00:00 Test Item Value Reference Range Interpretation Comments CHOLESTEROL (test code = 2210) 138 MG/DL TRIGLYCERIDES (test code = 2232) 114 MG/DL HDL CHOLESTEROL (test code = 2220) 45 MG/DL CALC LDL CHOL (test code = 2237) 73 MG/DL RISK RATIO LDL/HDL (test code = 1.62 RATIO 2238) LIPID [id number] 00:00:00 Test Item Value Reference Range Interpretation Comments CHOLESTEROL (test code = 2210) 138 MG/DL TRIGLYCERIDES (test code = 2232) 114 MG/DL HDL CHOLESTEROL (test code = 2220) 45 MG/DL CALC LDL CHOL (test code = 2237) 73 MG/DL RISK RATIO LDL/HDL (test code = 1.62 RATIO 2238) COMPREHENSIVE METABOLIC [id number] 05:52:46 Test Item Value Reference Range Interpretation Comments GLUCOSE (test code = 110 MG/DL 70-99 H 2216) BUN (test code = 12 MG/DL 6-20 2207) CREATININE (test 0.67 MG/DL 0.60-1.30 code = 2213) eGFR (2020 CKD-EPI) 115 >60 (test code = 36914) ML/MIN/1.73 CALC BUN/CREAT (test 18 RATIO 6-28 code = 2235) SODIUM (test code = 148 MEQ/L 133-146 H 2230) POTASSIUM (test code 5.0 MEQ/L 3.5-5.4 = 2227) CHLORIDE (test code 108 MEQ/L 95-107 H = 2214) CARBON DIOXIDE (test 30 MEQ/L 19-31 code = 220) CALCIUM (test code = 9.7 MG/DL 8.5-10.5 2208) PROTEIN, TOTAL (test 8.2 G/DL 6.1-8.3 code = 222) ALBUMIN (test code = 4.3 G/DL 3.5-5.2 2200) CALC GLOBULIN (test 3.9 G/DL 1.9-3.7 H code = 2240) CALC A/G RATIO (test 1.1 RATIO 1.0-2.6 code = 2234) BILIRUBIN, TOTAL 0.5 MG/DL See_Comment [Automated message] (test code = 2207) The syste m which generated this result transmit butch reference range : <=1.2. The refe rence range was not u sed to interpret th is result as normal/abnormal . ALKALINE PHOSPHATASE 87 U/L 40-112 (test code = 2203) AST (test code = 28 U/L 9-40 2218) ALT (test code = 28 U/L 5-40 2219) C-REACTIVE [id number] 05:52:34 Test Item Value Reference Range Interpretation Comments C-REACTIVE PROTEIN 4.8 MG/DL <0.5 H UNLESS O THERWISE (test code = 3513) INDICATED , ALL TESTING PERFORMED [facility]ENTERPal[facility] [employer] [address] [place], [place] [address] [place] [address] DIRECTOR: Devon REYIA NUMBER [id number] CAP ACCREDITATION N O. [id number] CBC W/AUTO DIFF WITH [id number] 04:54:28 Test Item Value Reference Range Interpretation [...] = 1036) NUCLEATED RBCS (test 0.0 /100 WBC'S See_Comment [Aut omated code = 1065) message] The sy stem which generated this [...] RBCS 0.00 K/UL 0.00-0.11 (test code = 34852) CBC W/AUTO [id number] 00:00:00 Test Item Value Reference Range Interpretation Comments WBC (test code = 1001) 7.7 K/UL RBC (test code = 1002) 4.33 M/UL HEMOGLOBIN (test code = 1003) 13.3 G/DL HEMATOCRIT (test code = 1004) 39.3 % MCV (test code = 1005) 90.8 fL MCH (test code = 1006) 30.7 PG MCHC (test code = 1007) 33.8 G/DL RDW (test code = 1038) 12.7 % NEUTROPHILS (test code = 1008) 54.4 % LYMPHOCYTES (test code = 1010) 34.8 % MONOCYTES (test code = 1011) 8.7 % EOSINOPHILS (test code = 1012) 1.3 % BASOPHILS (test code = 1013) 0.3 % IMMATURE GRANULOCYTES (test 0.5 % code = 1036) NUCLEATED RBCS (test code = 0.0 /100WBC'S 1065) PLATELET COUNT (test code = 268 K/UL 1015) ABSOLUTE NEUTROPHILS (test code 4.18 K/UL = 1066) ABSOLUTE LYMPHOCYTES (test code 2.67 K/UL = 1067) ABSOLUTE MONOCYTES (test code = 0.67 K/UL 1068) ABSOLUTE EOSINOPHILS (test code 0.10 K/UL = 1040) ABSOLUTE BASOPHILS (test code = 0.02 K/UL 1069) ABS IMMATURE GRANULOCYTES (test 0.04 K/UL code = 1020) ABS NUCLEATED RBCS (test code = 0.00 K/UL 78660) CBC W/AUTO [id number] 00:00:00 Test Item Value Reference Range Interpretation Comments WBC (test code = 1001) 7.7 K/UL RBC (test code = 1002) 4.33 M/UL HEMOGLOBIN (test code = 1003) 13.3 G/DL HEMATOCRIT (test code = 1004) 39.3 % MCV (test code = 1005) 90.8 fL MCH (test code = 1006) 30.7 PG MCHC (test code = 1007) 33.8 G/DL RDW (test code = 1038) 12.7 % NEUTROPHILS (test code = 1008) 54.4 % LYMPHOCYTES (test code = 1010) 34.8 % MONOCYTES (test code = 1011) 8.7 % EOSINOPHILS (test code = 1012) 1.3 % BASOPHILS (test code = 1013) 0.3 % IMMATURE GRANULOCYTES (test 0.5 % code = 1036) NUCLEATED RBCS (test code = 0.0 /100WBC'S 1065) PLATELET COUNT (test code = 268 K/UL 1015) ABSOLUTE NEUTROPHILS (test code 4.18 K/UL = 1066) ABSOLUTE LYMPHOCYTES (test code 2.67 K/UL = 1067) ABSOLUTE MONOCYTES (test code = 0.67 K/UL 1068) ABSOLUTE EOSINOPHILS (test code 0.10 K/UL = 1040) ABSOLUTE BASOPHILS (test code = 0.02 K/UL 1069) ABS IMMATURE GRANULOCYTES (test 0.04 K/UL code = 1020) ABS NUCLEATED RBCS (test code = 0.00 K/UL 65199) COMPREHENSIVE METABOLIC [id number] 00:00:00 Test Item Value Reference Range Interpretation Comments GLUCOSE (test code = 2217) 110 MG/DL BUN (test code = 2208) 12 MG/DL CREATININE (test code = 2214) 0.67 MG/DL eGFR (2020 CKD-EPI) (test 115 ML/MIN/1.73 code = 97845) CALC BUN/CREAT (test code = 18 RATIO 2235) SODIUM (test code = 2231) 148 MEQ/L POTASSIUM (test code = 2228) 5.0 MEQ/L CHLORIDE (test code = 2215) 108 MEQ/L CARBON DIOXIDE (test code = 30 MEQ/L 220) CALCIUM (test code = 2209) 9.7 MG/DL PROTEIN, TOTAL (test code = 8.2 G/DL 2228) ALBUMIN (test code = 2201) 4.3 G/DL CALC GLOBULIN (test code = 3.9 G/DL 2240) CALC A/G RATIO (test code = 1.1 RATIO 2234) BILIRUBIN, TOTAL (test code = 0.5 MG/DL 2207) ALKALINE PHOSPHATASE (test 87 U/L code = 2204) AST (test code = 2218) 28 U/L ALT (test code = 2219) 28 U/L C-REACTIVE [id number] 00:00:00 Test Item Value Reference Range Interpretation Comments C-REACTIVE PROTEIN (test code = 4.8 MG/DL 3513) CBC W/AUTO [id number] 00:00:00 Test Item Value Reference Range Interpretation Comments WBC (test code = 1001) 7.7 K/UL RBC (test code = 1002) 4.33 M/UL HEMOGLOBIN (test code = 1003) 13.3 G/DL HEMATOCRIT (test code = 1004) 39.3 % MCV (test code = 1005) 90.8 fL MCH (test code = 1006) 30.7 PG MCHC (test code = 1007) 33.8 G/DL RDW (test code = 1038) 12.7 % NEUTROPHILS (test code = 1008) 54.4 % LYMPHOCYTES (test code = 1010) 34.8 % MONOCYTES (test code = 1011) 8.7 % EOSINOPHILS (test code = 1012) 1.3 % BASOPHILS (test code = 1013) 0.3 % IMMATURE GRANULOCYTES (test 0.5 % code = 1036) NUCLEATED RBCS (test code = 0.0 /100WBC'S 1065) PLATELET COUNT (test code = 268 K/UL 1015) ABSOLUTE NEUTROPHILS (test code 4.18 K/UL = 1066) ABSOLUTE LYMPHOCYTES (test code 2.67 K/UL = 1067) ABSOLUTE MONOCYTES (test code = 0.67 K/UL 1068) ABSOLUTE EOSINOPHILS (test code 0.10 K/UL = 1040) ABSOLUTE BASOPHILS (test code = 0.02 K/UL 1069) ABS IMMATURE GRANULOCYTES (test 0.04 K/UL code = 1020) ABS NUCLEATED RBCS (test code = 0.00 K/UL 94977) CBC W/AUTO [id number] 00:00:00 Test Item Value Reference Range Interpretation Comments WBC (test code = 1001) 7.7 K/UL RBC (test code = 1002) 4.33 M/UL HEMOGLOBIN (test code = 1003) 13.3 G/DL HEMATOCRIT (test code = 1004) 39.3 % MCV (test code = 1005) 90.8 fL MCH (test code = 1006) 30.7 PG MCHC (test code = 1007) 33.8 G/DL RDW (test code = 1038) 12.7 % NEUTROPHILS (test code = 1008) 54.4 % LYMPHOCYTES (test code = 1010) 34.8 % MONOCYTES (test code = 1011) 8.7 % EOSINOPHILS (test code = 1012) 1.3 % BASOPHILS (test code = 1013) 0.3 % IMMATURE GRANULOCYTES (test 0.5 % code = 1036) NUCLEATED RBCS (test code = 0.0 /100WBC'S 1065) PLATELET COUNT (test code = 268 K/UL 1015) ABSOLUTE NEUTROPHILS (test code 4.18 K/UL = 1066) ABSOLUTE LYMPHOCYTES (test code 2.67 K/UL = 1067) ABSOLUTE MONOCYTES (test code = 0.67 K/UL 1068) ABSOLUTE EOSINOPHILS (test code 0.10 K/UL = 1040) ABSOLUTE BASOPHILS (test code = 0.02 K/UL 1069) ABS IMMATURE GRANULOCYTES (test 0.04 K/UL code = 1020) ABS NUCLEATED RBCS (test code = 0.00 K/UL 24399) CBC W/AUTO [id number] 00:00:00 Test Item Value Reference Range Interpretation Comments WBC (test code = 1001) 7.7 K/UL RBC (test code = 1002) 4.33 M/UL HEMOGLOBIN (test code = 1003) 13.3 G/DL HEMATOCRIT (test code = 1004) 39.3 % MCV (test code = 1005) 90.8 fL MCH (test code = 1006) 30.7 PG MCHC (test code = 1007) 33.8 G/DL RDW (test code = 1038) 12.7 % NEUTROPHILS (test code = 1008) 54.4 % LYMPHOCYTES (test code = 1010) 34.8 % MONOCYTES (test code = 1011) 8.7 % EOSINOPHILS (test code = 1012) 1.3 % BASOPHILS (test code = 1013) 0.3 % IMMATURE GRANULOCYTES (test 0.5 % code = 1036) NUCLEATED RBCS (test code = 0.0 /100WBC'S 1065) PLATELET COUNT (test code = 268 K/UL 1015) ABSOLUTE NEUTROPHILS (test code 4.18 K/UL = 1066) ABSOLUTE LYMPHOCYTES (test code 2.67 K/UL = 1067) ABSOLUTE MONOCYTES (test code = 0.67 K/UL 1068) ABSOLUTE EOSINOPHILS (test code 0.10 K/UL = 1040) ABSOLUTE BASOPHILS (test code = 0.02 K/UL 1069) ABS IMMATURE GRANULOCYTES (test 0.04 K/UL code = 1020) ABS NUCLEATED RBCS (test code = 0.00 K/UL 75915) CBC W/AUTO [id number] 00:00:00 Test Item Value Reference Range Interpretation Comments WBC (test code = 1001) 7.7 K/UL RBC (test code = 1002) 4.33 M/UL HEMOGLOBIN (test code = 1003) 13.3 G/DL HEMATOCRIT (test code = 1004) 39.3 % MCV (test code = 1005) 90.8 fL MCH (test code = 1006) 30.7 PG MCHC (test code = 1007) 33.8 G/DL RDW (test code = 1038) 12.7 % NEUTROPHILS (test code = 1008) 54.4 % LYMPHOCYTES (test code = 1010) 34.8 % MONOCYTES (test code = 1011) 8.7 % EOSINOPHILS (test code = 1012) 1.3 % BASOPHILS (test code = 1013) 0.3 % IMMATURE GRANULOCYTES (test 0.5 % code = 1036) NUCLEATED RBCS (test code = 0.0 /100WBC'S 1065) PLATELET COUNT (test code = 268 K/UL 1015) ABSOLUTE NEUTROPHILS (test code 4.18 K/UL = 1066) ABSOLUTE LYMPHOCYTES (test code 2.67 K/UL = 1067) ABSOLUTE MONOCYTES (test code = 0.67 K/UL 1068) ABSOLUTE EOSINOPHILS (test code 0.10 K/UL = 1040) ABSOLUTE BASOPHILS (test code = 0.02 K/UL 1069) ABS IMMATURE GRANULOCYTES (test 0.04 K/UL code = 1020) ABS NUCLEATED RBCS (test code = 0.00 K/UL 09626) COMPREHENSIVE METABOLIC [id number] 00:00:00 Test Item Value Reference Range Interpretation Comments GLUCOSE (test code = 2217) 110 MG/DL BUN (test code = 2208) 12 MG/DL CREATININE (test code = 2214) 0.67 MG/DL eGFR (2020 CKD-EPI) (test 115 ML/MIN/1.73 code = 83912) CALC BUN/CREAT (test code = 18 RATIO 2235) SODIUM (test code = 2231) 148 MEQ/L POTASSIUM (test code = 2228) 5.0 MEQ/L CHLORIDE (test code = 2215) 108 MEQ/L CARBON DIOXIDE (test code = 30 MEQ/L 2205) CALCIUM (test code = 2209) 9.7 MG/DL PROTEIN, TOTAL (test code = 8.2 G/DL 2228) ALBUMIN (test code = 2201) 4.3 G/DL CALC GLOBULIN (test code = 3.9 G/DL 2240) CALC A/G RATIO (test code = 1.1 RATIO 2234) BILIRUBIN, TOTAL (test code = 0.5 MG/DL 2206) ALKALINE PHOSPHATASE (test 87 U/L code = 2204) AST (test code = 2218) 28 U/L ALT (test code = 2219) 28 U/L COMPREHENSIVE METABOLIC [id number] 00:00:00 Test Item Value Reference Range Interpretation Comments GLUCOSE (test code = 2217) 110 MG/DL BUN (test code = 2208) 12 MG/DL CREATININE (test code = 2214) 0.67 MG/DL eGFR (2020 CKD-EPI) (test 115 ML/MIN/1.73 code = 55172) CALC BUN/CREAT (test code = 18 RATIO 2235) SODIUM (test code = 2231) 148 MEQ/L POTASSIUM (test code = 2228) 5.0 MEQ/L CHLORIDE (test code = 2215) 108 MEQ/L CARBON DIOXIDE (test code = 30 MEQ/L 2205) CALCIUM (test code = 2209) 9.7 MG/DL PROTEIN, TOTAL (test code = 8.2 G/DL 2228) ALBUMIN (test code = 2201) 4.3 G/DL CALC GLOBULIN (test code = 3.9 G/DL 2240) CALC A/G RATIO (test code = 1.1 RATIO 2234) BILIRUBIN, TOTAL (test code = 0.5 MG/DL 2206) ALKALINE PHOSPHATASE (test 87 U/L code = 2204) AST (test code = 2218) 28 U/L ALT (test code = 2219) 28 U/L C-REACTIVE [id number] 00:00:00 Test Item Value Reference Range Interpretation Comments C-REACTIVE PROTEIN (test code = 4.8 MG/DL 3513) C-REACTIVE [id number] 00:00:00 Test Item Value Reference Range Interpretation Comments C-REACTIVE PROTEIN (test code = 4.8 MG/DL 3513) CBC W/AUTO [id number] 00:00:00 Test Item Value Reference Range Interpretation Comments WBC (test code = 1001) 7.7 K/UL RBC (test code = 1002) 4.33 M/UL HEMOGLOBIN (test code = 1003) 13.3 G/DL HEMATOCRIT (test code = 1004) 39.3 % MCV (test code = 1005) 90.8 fL MCH (test code = 1006) 30.7 PG MCHC (test code = 1007) 33.8 G/DL RDW (test code = 1038) 12.7 % NEUTROPHILS (test code = 1008) 54.4 % LYMPHOCYTES (test code = 1010) 34.8 % MONOCYTES (test code = 1011) 8.7 % EOSINOPHILS (test code = 1012) 1.3 % BASOPHILS (test code = 1013) 0.3 % IMMATURE GRANULOCYTES (test 0.5 % code = 1036) NUCLEATED RBCS (test code = 0.0 /100WBC'S 1065) PLATELET COUNT (test code = 268 K/UL 1015) ABSOLUTE NEUTROPHILS (test code 4.18 K/UL = 1066) ABSOLUTE LYMPHOCYTES (test code 2.67 K/UL = 1067) ABSOLUTE MONOCYTES (test code = 0.67 K/UL 1068) ABSOLUTE EOSINOPHILS (test code 0.10 K/UL = 1040) ABSOLUTE BASOPHILS (test code = 0.02 K/UL 1069) ABS IMMATURE GRANULOCYTES (test 0.04 K/UL code = 1020) ABS NUCLEATED RBCS (test code = 0.00 K/UL 73516) CBC W/AUTO [id number] 00:00:00 Test Item Value Reference Range Interpretation Comments WBC (test code = 1001) 7.7 K/UL RBC (test code = 1002) 4.33 M/UL HEMOGLOBIN (test code = 1003) 13.3 G/DL HEMATOCRIT (test code = 1004) 39.3 % MCV (test code = 1005) 90.8 fL MCH (test code = 1006) 30.7 PG MCHC (test code = 1007) 33.8 G/DL RDW (test code = 1038) 12.7 % NEUTROPHILS (test code = 1008) 54.4 % LYMPHOCYTES (test code = 1010) 34.8 % MONOCYTES (test code = 1011) 8.7 % EOSINOPHILS (test code = 1012) 1.3 % BASOPHILS (test code = 1013) 0.3 % IMMATURE GRANULOCYTES (test 0.5 % code = 1036) NUCLEATED RBCS (test code = 0.0 /100WBC'S 1065) PLATELET COUNT (test code = 268 K/UL 1015) ABSOLUTE NEUTROPHILS (test code 4.18 K/UL = 1066) ABSOLUTE LYMPHOCYTES (test code 2.67 K/UL = 1067) ABSOLUTE MONOCYTES (test code = 0.67 K/UL 1068) ABSOLUTE EOSINOPHILS (test code 0.10 K/UL = 1040) ABSOLUTE BASOPHILS (test code = 0.02 K/UL 1069) ABS IMMATURE GRANULOCYTES (test 0.04 K/UL code = 1020) ABS NUCLEATED RBCS (test code = 0.00 K/UL 54016) CBC W/AUTO [id number] 00:00:00 Test Item Value Reference Range Interpretation Comments WBC (test code = 1001) 7.7 K/UL RBC (test code = 1002) 4.33 M/UL HEMOGLOBIN (test code = 1003) 13.3 G/DL HEMATOCRIT (test code = 1004) 39.3 % MCV (test code = 1005) 90.8 fL MCH (test code = 1006) 30.7 PG MCHC (test code = 1007) 33.8 G/DL RDW (test code = 1038) 12.7 % NEUTROPHILS (test code = 1008) 54.4 % LYMPHOCYTES (test code = 1010) 34.8 % MONOCYTES (test code = 1011) 8.7 % EOSINOPHILS (test code = 1012) 1.3 % BASOPHILS (test code = 1013) 0.3 % IMMATURE GRANULOCYTES (test 0.5 % code = 1036) NUCLEATED RBCS (test code = 0.0 /100WBC'S 1065) PLATELET COUNT (test code = 268 K/UL 1015) ABSOLUTE NEUTROPHILS (test code 4.18 K/UL = 1066) ABSOLUTE LYMPHOCYTES (test code 2.67 K/UL = 1067) ABSOLUTE MONOCYTES (test code = 0.67 K/UL 1068) ABSOLUTE EOSINOPHILS (test code 0.10 K/UL = 1040) ABSOLUTE BASOPHILS (test code = 0.02 K/UL 1069) ABS IMMATURE GRANULOCYTES (test 0.04 K/UL code = 1020) ABS NUCLEATED RBCS (test code = 0.00 K/UL 02871) COMPREHENSIVE METABOLIC [id number] 00:00:00 Test Item Value Reference Range Interpretation Comments GLUCOSE (test code = 2217) 110 MG/DL BUN (test code = 2208) 12 MG/DL CREATININE (test code = 2214) 0.67 MG/DL eGFR (2020 CKD-EPI) (test 115 ML/MIN/1.73 code = 28524) CALC BUN/CREAT (test code = 18 RATIO 2235) SODIUM (test code = 2231) 148 MEQ/L POTASSIUM (test code = 2228) 5.0 MEQ/L CHLORIDE (test code = 2215) 108 MEQ/L CARBON DIOXIDE (test code = 30 MEQ/L 2205) CALCIUM (test code = 2209) 9.7 MG/DL PROTEIN, TOTAL (test code = 8.2 G/DL 222) ALBUMIN (test code = 2201) 4.3 G/DL CALC GLOBULIN (test code = 3.9 G/DL 2240) CALC A/G RATIO (test code = 1.1 RATIO 2234) BILIRUBIN, TOTAL (test code = 0.5 MG/DL 2206) ALKALINE PHOSPHATASE (test 87 U/L code = 2204) AST (test code = 2218) 28 U/L ALT (test code = 2219) 28 U/L CBC W/AUTO [id number] 00:00:00 Test Item Value Reference Range Interpretation Comments WBC (test code = 1001) 7.7 K/UL RBC (test code = 1002) 4.33 M/UL HEMOGLOBIN (test code = 1003) 13.3 G/DL HEMATOCRIT (test code = 1004) 39.3 % MCV (test code = 1005) 90.8 fL MCH (test code = 1006) 30.7 PG MCHC (test code = 1007) 33.8 G/DL RDW (test code = 1038) 12.7 % NEUTROPHILS (test code = 1008) 54.4 % LYMPHOCYTES (test code = 1010) 34.8 % MONOCYTES (test code = 1011) 8.7 % EOSINOPHILS (test code = 1012) 1.3 % BASOPHILS (test code = 1013) 0.3 % IMMATURE GRANULOCYTES (test 0.5 % code = 1036) NUCLEATED RBCS (test code = 0.0 /100WBC'S 1065) PLATELET COUNT (test code = 268 K/UL 1015) ABSOLUTE NEUTROPHILS (test code 4.18 K/UL = 1066) ABSOLUTE LYMPHOCYTES (test code 2.67 K/UL = 1067) ABSOLUTE MONOCYTES (test code = 0.67 K/UL 1068) ABSOLUTE EOSINOPHILS (test code 0.10 K/UL = 1040) ABSOLUTE BASOPHILS (test code = 0.02 K/UL 1069) ABS IMMATURE GRANULOCYTES (test 0.04 K/UL code = 1020) ABS NUCLEATED RBCS (test code = 0.00 K/UL 22008) COMPREHENSIVE METABOLIC [id number] 00:00:00 Test Item Value Reference Range Interpretation Comments GLUCOSE (test code = 2217) 110 MG/DL BUN (test code = 2208) 12 MG/DL CREATININE (test code = 2214) 0.67 MG/DL eGFR (2020 CKD-EPI) (test 115 ML/MIN/1.73 code = 34868) CALC BUN/CREAT (test code = 18 RATIO 2235) SODIUM (test code = 2231) 148 MEQ/L POTASSIUM (test code = 2228) 5.0 MEQ/L CHLORIDE (test code = 2215) 108 MEQ/L CARBON DIOXIDE (test code = 30 MEQ/L 2205) CALCIUM (test code = 2209) 9.7 MG/DL PROTEIN, TOTAL (test code = 8.2 G/DL 2228) ALBUMIN (test code = 2201) 4.3 G/DL CALC GLOBULIN (test code = 3.9 G/DL 2240) CALC A/G RATIO (test code = 1.1 RATIO 2234) BILIRUBIN, TOTAL (test code = 0.5 MG/DL 2206) ALKALINE PHOSPHATASE (test 87 U/L code = 2204) AST (test code = 2218) 28 U/L ALT (test code = 2219) 28 U/L COMPREHENSIVE METABOLIC [id number] 00:00:00 Test Item Value Reference Range Interpretation Comments GLUCOSE (test code = 2217) 110 MG/DL BUN (test code = 2208) 12 MG/DL CREATININE (test code = 2214) 0.67 MG/DL eGFR (2020 CKD-EPI) (test 115 ML/MIN/1.73 code = 47995) CALC BUN/CREAT (test code = 18 RATIO 2235) SODIUM (test code = 2231) 148 MEQ/L POTASSIUM (test code = 2228) 5.0 MEQ/L CHLORIDE (test code = 2215) 108 MEQ/L CARBON DIOXIDE (test code = 30 MEQ/L 2205) CALCIUM (test code = 2209) 9.7 MG/DL PROTEIN, TOTAL (test code = 8.2 G/DL 2228) ALBUMIN (test code = 220) 4.3 G/DL CALC GLOBULIN (test code = 3.9 G/DL 2239) CALC A/G RATIO (test code = 1.1 RATIO 2233) BILIRUBIN, TOTAL (test code = 0.5 MG/DL 2206) ALKALINE PHOSPHATASE (test 87 U/L code = 2204) AST (test code = 2218) 28 U/L ALT (test code = 2219) 28 U/L C-REACTIVE [id number] 00:00:00 Test Item Value Reference Range Interpretation Comments C-REACTIVE PROTEIN (test code = 4.8 MG/DL 3513) C-REACTIVE [id number] 00:00:00 Test Item Value Reference Range Interpretation Comments C-REACTIVE PROTEIN (test code = 4.8 MG/DL 3513) C-REACTIVE [id number] 00:00:00 Test Item Value Reference Range Interpretation Comments C-REACTIVE PROTEIN (test code = 4.8 MG/DL 3513) CBC W/AUTO [id number] 00:00:00 Test Item Value Reference Range Interpretation Comments WBC (test code = 1001) 7.7 K/UL RBC (test code = 1002) 4.33 M/UL HEMOGLOBIN (test code = 1003) 13.3 G/DL HEMATOCRIT (test code = 1004) 39.3 % MCV (test code = 1005) 90.8 fL MCH (test code = 1006) 30.7 PG MCHC (test code = 1007) 33.8 G/DL RDW (test code = 1038) 12.7 % NEUTROPHILS (test code = 1008) 54.4 % LYMPHOCYTES (test code = 1010) 34.8 % MONOCYTES (test code = 1011) 8.7 % EOSINOPHILS (test code = 1012) 1.3 % BASOPHILS (test code = 1013) 0.3 % IMMATURE GRANULOCYTES (test 0.5 % code = 1036) NUCLEATED RBCS (test code = 0.0 /100WBC'S 1065) PLATELET COUNT (test code = 268 K/UL 1015) ABSOLUTE NEUTROPHILS (test code 4.18 K/UL = 1066) ABSOLUTE LYMPHOCYTES (test code 2.67 K/UL = 1067) ABSOLUTE MONOCYTES (test code = 0.67 K/UL 1068) ABSOLUTE EOSINOPHILS (test code 0.10 K/UL = 1040) ABSOLUTE BASOPHILS (test code = 0.02 K/UL 1069) ABS IMMATURE GRANULOCYTES (test 0.04 K/UL code = 1020) ABS NUCLEATED RBCS (test code = 0.00 K/UL 96159) CBC W/AUTO [id number] 00:00:00 Test Item Value Reference Range Interpretation Comments WBC (test code = 1001) 7.7 K/UL RBC (test code = 1002) 4.33 M/UL HEMOGLOBIN (test code = 1003) 13.3 G/DL HEMATOCRIT (test code = 1004) 39.3 % MCV (test code = 1005) 90.8 fL MCH (test code = 1006) 30.7 PG MCHC (test code = 1007) 33.8 G/DL RDW (test code = 1038) 12.7 % NEUTROPHILS (test code = 1008) 54.4 % LYMPHOCYTES (test code = 1010) 34.8 % MONOCYTES (test code = 1011) 8.7 % EOSINOPHILS (test code = 1012) 1.3 % BASOPHILS (test code = 1013) 0.3 % IMMATURE GRANULOCYTES (test 0.5 % code = 1036) NUCLEATED RBCS (test code = 0.0 /100WBC'S 1065) PLATELET COUNT (test code = 268 K/UL 1015) ABSOLUTE NEUTROPHILS (test code 4.18 K/UL = 1066) ABSOLUTE LYMPHOCYTES (test code 2.67 K/UL = 1067) ABSOLUTE MONOCYTES (test code = 0.67 K/UL 1068) ABSOLUTE EOSINOPHILS (test code 0.10 K/UL = 1040) ABSOLUTE BASOPHILS (test code = 0.02 K/UL 1069) ABS IMMATURE GRANULOCYTES (test 0.04 K/UL code = 1020) ABS NUCLEATED RBCS (test code = 0.00 K/UL 95836) CBC W/AUTO [id number] 00:00:00 Test Item Value Reference Range Interpretation Comments WBC (test code = 1001) 7.7 K/UL RBC (test code = 1002) 4.33 M/UL HEMOGLOBIN (test code = 1003) 13.3 G/DL HEMATOCRIT (test code = 1004) 39.3 % MCV (test code = 1005) 90.8 fL MCH (test code = 1006) 30.7 PG MCHC (test code = 1007) 33.8 G/DL RDW (test code = 1038) 12.7 % NEUTROPHILS (test code = 1008) 54.4 % LYMPHOCYTES (test code = 1010) 34.8 % MONOCYTES (test code = 1011) 8.7 % EOSINOPHILS (test code = 1012) 1.3 % BASOPHILS (test code = 1013) 0.3 % IMMATURE GRANULOCYTES (test 0.5 % code = 1036) NUCLEATED RBCS (test code = 0.0 /100WBC'S 1065) PLATELET COUNT (test code = 268 K/UL 1015) ABSOLUTE NEUTROPHILS (test code 4.18 K/UL = 1066) ABSOLUTE LYMPHOCYTES (test code 2.67 K/UL = 1067) ABSOLUTE MONOCYTES (test code = 0.67 K/UL 1068) ABSOLUTE EOSINOPHILS (test code 0.10 K/UL = 1040) ABSOLUTE BASOPHILS (test code = 0.02 K/UL 1069) ABS IMMATURE GRANULOCYTES (test 0.04 K/UL code = 1020) ABS NUCLEATED RBCS (test code = 0.00 K/UL 85925) COMPREHENSIVE METABOLIC [id number] 00:00:00 Test Item Value Reference Range Interpretation Comments GLUCOSE (test code = 2217) 110 MG/DL BUN (test code = 2208) 12 MG/DL CREATININE (test code = 2214) 0.67 MG/DL eGFR (2020 CKD-EPI) (test 115 ML/MIN/1.73 code = 28312) CALC BUN/CREAT (test code = 18 RATIO 2235) SODIUM (test code = 2231) 148 MEQ/L POTASSIUM (test code = 2228) 5.0 MEQ/L CHLORIDE (test code = 2215) 108 MEQ/L CARBON DIOXIDE (test code = 30 MEQ/L 220) CALCIUM (test code = 2209) 9.7 MG/DL PROTEIN, TOTAL (test code = 8.2 G/DL 2228) ALBUMIN (test code = 2201) 4.3 G/DL CALC GLOBULIN (test code = 3.9 G/DL 2240) CALC A/G RATIO (test code = 1.1 RATIO 2234) BILIRUBIN, TOTAL (test code = 0.5 MG/DL 2206) ALKALINE PHOSPHATASE (test 87 U/L code = 2204) AST (test code = 2218) 28 U/L ALT (test code = 2219) 28 U/L COMPREHENSIVE METABOLIC [id number] 00:00:00 Test Item Value Reference Range Interpretation Comments GLUCOSE (test code = 2217) 110 MG/DL BUN (test code = 2208) 12 MG/DL CREATININE (test code = 2214) 0.67 MG/DL eGFR (2020 CKD-EPI) (test 115 ML/MIN/1.73 code = 43084) CALC BUN/CREAT (test code = 18 RATIO 2235) SODIUM (test code = 2231) 148 MEQ/L POTASSIUM (test code = 2228) 5.0 MEQ/L CHLORIDE (test code = 2215) 108 MEQ/L CARBON DIOXIDE (test code = 30 MEQ/L 2205) CALCIUM (test code = 2209) 9.7 MG/DL PROTEIN, TOTAL (test code = 8.2 G/DL 2228) ALBUMIN (test code = 2201) 4.3 G/DL CALC GLOBULIN (test code = 3.9 G/DL 2240) CALC A/G RATIO (test code = 1.1 RATIO 2234) BILIRUBIN, TOTAL (test code = 0.5 MG/DL 2206) ALKALINE PHOSPHATASE (test 87 U/L code = 2204) AST (test code = 2218) 28 U/L ALT (test code = 2219) 28 U/L C-REACTIVE [id number] 00:00:00 Test Item Value Reference Range Interpretation Comments C-REACTIVE PROTEIN (test code = 4.8 MG/DL 3513) C-REACTIVE [id number] 00:00:00 Test Item Value Reference Range Interpretation Comments C-REACTIVE PROTEIN (test code = 4.8 MG/DL 3513) CBC W/AUTO [id number] 00:00:00 Test Item Value Reference Range Interpretation Comments WBC (test code = 1001) 7.7 K/UL RBC (test code = 1002) 4.33 M/UL HEMOGLOBIN (test code = 1003) 13.3 G/DL HEMATOCRIT (test code = 1004) 39.3 % MCV (test code = 1005) 90.8 fL MCH (test code = 1006) 30.7 PG MCHC (test code = 1007) 33.8 G/DL RDW (test code = 1038) 12.7 % NEUTROPHILS (test code = 1008) 54.4 % LYMPHOCYTES (test code = 1010) 34.8 % MONOCYTES (test code = 1011) 8.7 % EOSINOPHILS (test code = 1012) 1.3 % BASOPHILS (test code = 1013) 0.3 % IMMATURE GRANULOCYTES (test 0.5 % code = 1036) NUCLEATED RBCS (test code = 0.0 /100WBC'S 1065) PLATELET COUNT (test code = 268 K/UL 1015) ABSOLUTE NEUTROPHILS (test code 4.18 K/UL = 1066) ABSOLUTE LYMPHOCYTES (test code 2.67 K/UL = 1067) ABSOLUTE MONOCYTES (test code = 0.67 K/UL 1068) ABSOLUTE EOSINOPHILS (test code 0.10 K/UL = 1040) ABSOLUTE BASOPHILS (test code = 0.02 K/UL 1069) ABS IMMATURE GRANULOCYTES (test 0.04 K/UL code = 1020) ABS NUCLEATED RBCS (test code = 0.00 K/UL 94365) CBC W/AUTO [id number] 00:00:00 Test Item Value Reference Range Interpretation Comments WBC (test code = 1001) 7.7 K/UL RBC (test code = 1002) 4.33 M/UL HEMOGLOBIN (test code = 1003) 13.3 G/DL HEMATOCRIT (test code = 1004) 39.3 % MCV (test code = 1005) 90.8 fL MCH (test code = 1006) 30.7 PG MCHC (test code = 1007) 33.8 G/DL RDW (test code = 1038) 12.7 % NEUTROPHILS (test code = 1008) 54.4 % LYMPHOCYTES (test code = 1010) 34.8 % MONOCYTES (test code = 1011) 8.7 % EOSINOPHILS (test code = 1012) 1.3 % BASOPHILS (test code = 1013) 0.3 % IMMATURE GRANULOCYTES (test 0.5 % code = 1036) NUCLEATED RBCS (test code = 0.0 /100WBC'S 1065) PLATELET COUNT (test code = 268 K/UL 1015) ABSOLUTE NEUTROPHILS (test code 4.18 K/UL = 1066) ABSOLUTE LYMPHOCYTES (test code 2.67 K/UL = 1067) ABSOLUTE MONOCYTES (test code = 0.67 K/UL 1068) ABSOLUTE EOSINOPHILS (test code 0.10 K/UL = 1040) ABSOLUTE BASOPHILS (test code = 0.02 K/UL 1069) ABS IMMATURE GRANULOCYTES (test 0.04 K/UL code = 1020) ABS NUCLEATED RBCS (test code = 0.00 K/UL 98955) CBC W/AUTO [id number] 00:00:00 Test Item Value Reference Range Interpretation Comments WBC (test code = 1001) 7.7 K/UL RBC (test code = 1002) 4.33 M/UL HEMOGLOBIN (test code = 1003) 13.3 G/DL HEMATOCRIT (test code = 1004) 39.3 % MCV (test code = 1005) 90.8 fL MCH (test code = 1006) 30.7 PG MCHC (test code = 1007) 33.8 G/DL RDW (test code = 1038) 12.7 % NEUTROPHILS (test code = 1008) 54.4 % LYMPHOCYTES (test code = 1010) 34.8 % MONOCYTES (test code = 1011) 8.7 % EOSINOPHILS (test code = 1012) 1.3 % BASOPHILS (test code = 1013) 0.3 % IMMATURE GRANULOCYTES (test 0.5 % code = 1036) NUCLEATED RBCS (test code = 0.0 /100WBC'S 1065) PLATELET COUNT (test code = 268 K/UL 1015) ABSOLUTE NEUTROPHILS (test code 4.18 K/UL = 1066) ABSOLUTE LYMPHOCYTES (test code 2.67 K/UL = 1067) ABSOLUTE MONOCYTES (test code = 0.67 K/UL 1068) ABSOLUTE EOSINOPHILS (test code 0.10 K/UL = 1040) ABSOLUTE BASOPHILS (test code = 0.02 K/UL 1069) ABS IMMATURE GRANULOCYTES (test 0.04 K/UL code = 1020) ABS NUCLEATED RBCS (test code = 0.00 K/UL 53508) COMPREHENSIVE METABOLIC [id number] 00:00:00 Test Item Value Reference Range Interpretation Comments GLUCOSE (test code = 2217) 110 MG/DL BUN (test code = 2208) 12 MG/DL CREATININE (test code = 2214) 0.67 MG/DL eGFR (2020 CKD-EPI) (test 115 ML/MIN/1.73 code = 38165) CALC BUN/CREAT (test code = 18 RATIO 2235) SODIUM (test code = 2231) 148 MEQ/L POTASSIUM (test code = 2228) 5.0 MEQ/L CHLORIDE (test code = 2215) 108 MEQ/L CARBON DIOXIDE (test code = 30 MEQ/L 220) CALCIUM (test code = 2209) 9.7 MG/DL PROTEIN, TOTAL (test code = 8.2 G/DL 2228) ALBUMIN (test code = 2201) 4.3 G/DL CALC GLOBULIN (test code = 3.9 G/DL 2240) CALC A/G RATIO (test code = 1.1 RATIO 2234) BILIRUBIN, TOTAL (test code = 0.5 MG/DL 2206) ALKALINE PHOSPHATASE (test 87 U/L code = 2204) AST (test code = 2218) 28 U/L ALT (test code = 2219) 28 U/L COMPREHENSIVE METABOLIC [id number] 00:00:00 Test Item Value Reference Range Interpretation Comments GLUCOSE (test code = 2217) 110 MG/DL BUN (test code = 2208) 12 MG/DL CREATININE (test code = 2214) 0.67 MG/DL eGFR (2020 CKD-EPI) (test 115 ML/MIN/1.73 code = 38594) CALC BUN/CREAT (test code = 18 RATIO 2235) SODIUM (test code = 2231) 148 MEQ/L POTASSIUM (test code = 2228) 5.0 MEQ/L CHLORIDE (test code = 2215) 108 MEQ/L CARBON DIOXIDE (test code = 30 MEQ/L 220) CALCIUM (test code = 2209) 9.7 MG/DL PROTEIN, TOTAL (test code = 8.2 G/DL 222) ALBUMIN (test code = 2201) 4.3 G/DL CALC GLOBULIN (test code = 3.9 G/DL 2240) CALC A/G RATIO (test code = 1.1 RATIO 2234) BILIRUBIN, TOTAL (test code = 0.5 MG/DL 2207) ALKALINE PHOSPHATASE (test 87 U/L code = 2204) AST (test code = 2218) 28 U/L ALT (test code = 2219) 28 U/L C-REACTIVE [id number] 00:00:00 Test Item Value Reference Range Interpretation Comments C-REACTIVE PROTEIN (test code = 4.8 MG/DL 3513) C-REACTIVE [id number] 00:00:00 Test Item Value Reference Range Interpretation Comments C-REACTIVE PROTEIN (test code = 4.8 MG/DL 3513) CBC W/AUTO DIFF WITH [id number] 03:06:39 Test Item Value Reference Range Interpretation [...] message] code = 1065) WBC'S The system [employer] generated this result transmitted ref erence range: [...] 1020) ABS NUCLEATED RBCS 0.00 K/UL 0.00-0.11 UNLESS OTHERWISE (test code = 80964) INDICATE D, ALL TESTING PERFORM ED [facility], [facility] [address] [place] [id number] [facility] DIRECTOR: LUIZ STUBBS M.D. CLIA NUMBER [id number] CAP ACCREDITATION N O. [id number] CBC W/AUTO [id number] 00:00:00 Test Item Value Reference Range Interpretation Comments WBC (test code = 1001) 7.3 K/UL RBC (test code = 1002) 4.21 M/UL HEMOGLOBIN (test code = 1003) 12.9 G/DL HEMATOCRIT (test code = 1004) 37.7 % MCV (test code = 1005) 89.5 fL MCH (test code = 1006) 30.6 PG MCHC (test code = 1007) 34.2 G/DL RDW (test code = 1038) 13.1 % NEUTROPHILS (test code = 1008) 54.6 % LYMPHOCYTES (test code = 1010) 37.2 % MONOCYTES (test code = 1011) 6.7 % EOSINOPHILS (test code = 1012) 1.0 % BASOPHILS (test code = 1013) 0.4 % IMMATURE GRANULOCYTES (test 0.1 % code = 1036) NUCLEATED RBCS (test code = 0.0 /100WBC'S 1065) PLATELET COUNT (test code = 231 K/UL 1015) ABSOLUTE NEUTROPHILS (test code 4.00 K/UL = 1066) ABSOLUTE LYMPHOCYTES (test code 2.73 K/UL = 1067) ABSOLUTE MONOCYTES (test code = 0.49 K/UL 1068) ABSOLUTE EOSINOPHILS (test code 0.07 K/UL = 1040) ABSOLUTE BASOPHILS (test code = 0.03 K/UL 1069) ABS IMMATURE GRANULOCYTES (test 0.01 K/UL code = 1020) ABS NUCLEATED RBCS (test code = 0.00 K/UL 47351) CBC W/AUTO [id number] 00:00:00 Test Item Value Reference Range Interpretation Comments WBC (test code = 1001) 7.3 K/UL RBC (test code = 1002) 4.21 M/UL HEMOGLOBIN (test code = 1003) 12.9 G/DL HEMATOCRIT (test code = 1004) 37.7 % MCV (test code = 1005) 89.5 fL MCH (test code = 1006) 30.6 PG MCHC (test code = 1007) 34.2 G/DL RDW (test code = 1038) 13.1 % NEUTROPHILS (test code = 1008) 54.6 % LYMPHOCYTES (test code = 1010) 37.2 % MONOCYTES (test code = 1011) 6.7 % EOSINOPHILS (test code = 1012) 1.0 % BASOPHILS (test code = 1013) 0.4 % IMMATURE GRANULOCYTES (test 0.1 % code = 1036) NUCLEATED RBCS (test code = 0.0 /100WBC'S 1065) PLATELET COUNT (test code = 231 K/UL 1015) ABSOLUTE NEUTROPHILS (test code 4.00 K/UL = 1066) ABSOLUTE LYMPHOCYTES (test code 2.73 K/UL = 1067) ABSOLUTE MONOCYTES (test code = 0.49 K/UL 1068) ABSOLUTE EOSINOPHILS (test code 0.07 K/UL = 1040) ABSOLUTE BASOPHILS (test code = 0.03 K/UL 1069) ABS IMMATURE GRANULOCYTES (test 0.01 K/UL code = 1020) ABS NUCLEATED RBCS (test code = 0.00 K/UL 43685) CBC W/AUTO [id number] 00:00:00 Test Item Value Reference Range Interpretation Comments WBC (test code = 1001) 7.3 K/UL RBC (test code = 1002) 4.21 M/UL HEMOGLOBIN (test code = 1003) 12.9 G/DL HEMATOCRIT (test code = 1004) 37.7 % MCV (test code = 1005) 89.5 fL MCH (test code = 1006) 30.6 PG MCHC (test code = 1007) 34.2 G/DL RDW (test code = 1038) 13.1 % NEUTROPHILS (test code = 1008) 54.6 % LYMPHOCYTES (test code = 1010) 37.2 % MONOCYTES (test code = 1011) 6.7 % EOSINOPHILS (test code = 1012) 1.0 % BASOPHILS (test code = 1013) 0.4 % IMMATURE GRANULOCYTES (test 0.1 % code = 1036) NUCLEATED RBCS (test code = 0.0 /100WBC'S 1065) PLATELET COUNT (test code = 231 K/UL 1015) ABSOLUTE NEUTROPHILS (test code 4.00 K/UL = 1066) ABSOLUTE LYMPHOCYTES (test code 2.73 K/UL = 1067) ABSOLUTE MONOCYTES (test code = 0.49 K/UL 1068) ABSOLUTE EOSINOPHILS (test code 0.07 K/UL = 1040) ABSOLUTE BASOPHILS (test code = 0.03 K/UL 1069) ABS IMMATURE GRANULOCYTES (test 0.01 K/UL code = 1020) ABS NUCLEATED RBCS (test code = 0.00 K/UL 94772) CBC W/AUTO [id number] 00:00:00 Test Item Value Reference Range Interpretation Comments WBC (test code = 1001) 7.3 K/UL RBC (test code = 1002) 4.21 M/UL HEMOGLOBIN (test code = 1003) 12.9 G/DL HEMATOCRIT (test code = 1004) 37.7 % MCV (test code = 1005) 89.5 fL MCH (test code = 1006) 30.6 PG MCHC (test code = 1007) 34.2 G/DL RDW (test code = 1038) 13.1 % NEUTROPHILS (test code = 1008) 54.6 % LYMPHOCYTES (test code = 1010) 37.2 % MONOCYTES (test code = 1011) 6.7 % EOSINOPHILS (test code = 1012) 1.0 % BASOPHILS (test code = 1013) 0.4 % IMMATURE GRANULOCYTES (test 0.1 % code = 1036) NUCLEATED RBCS (test code = 0.0 /100WBC'S 1065) PLATELET COUNT (test code = 231 K/UL 1015) ABSOLUTE NEUTROPHILS (test code 4.00 K/UL = 1066) ABSOLUTE LYMPHOCYTES (test code 2.73 K/UL = 1067) ABSOLUTE MONOCYTES (test code = 0.49 K/UL 1068) ABSOLUTE EOSINOPHILS (test code 0.07 K/UL = 1040) ABSOLUTE BASOPHILS (test code = 0.03 K/UL 1069) ABS IMMATURE GRANULOCYTES (test 0.01 K/UL code = 1020) ABS NUCLEATED RBCS (test code = 0.00 K/UL 06680) CBC W/AUTO [id number] 00:00:00 Test Item Value Reference Range Interpretation Comments WBC (test code = 1001) 7.3 K/UL RBC (test code = 1002) 4.21 M/UL HEMOGLOBIN (test code = 1003) 12.9 G/DL HEMATOCRIT (test code = 1004) 37.7 % MCV (test code = 1005) 89.5 fL MCH (test code = 1006) 30.6 PG MCHC (test code = 1007) 34.2 G/DL RDW (test code = 1038) 13.1 % NEUTROPHILS (test code = 1008) 54.6 % LYMPHOCYTES (test code = 1010) 37.2 % MONOCYTES (test code = 1011) 6.7 % EOSINOPHILS (test code = 1012) 1.0 % BASOPHILS (test code = 1013) 0.4 % IMMATURE GRANULOCYTES (test 0.1 % code = 1036) NUCLEATED RBCS (test code = 0.0 /100WBC'S 1065) PLATELET COUNT (test code = 231 K/UL 1015) ABSOLUTE NEUTROPHILS (test code 4.00 K/UL = 1066) ABSOLUTE LYMPHOCYTES (test code 2.73 K/UL = 1067) ABSOLUTE MONOCYTES (test code = 0.49 K/UL 1068) ABSOLUTE EOSINOPHILS (test code 0.07 K/UL = 1040) ABSOLUTE BASOPHILS (test code = 0.03 K/UL 1069) ABS IMMATURE GRANULOCYTES (test 0.01 K/UL code = 1020) ABS NUCLEATED RBCS (test code = 0.00 K/UL 08431) CBC W/AUTO [id number] 00:00:00 Test Item Value Reference Range Interpretation Comments WBC (test code = 1001) 7.3 K/UL RBC (test code = 1002) 4.21 M/UL HEMOGLOBIN (test code = 1003) 12.9 G/DL HEMATOCRIT (test code = 1004) 37.7 % MCV (test code = 1005) 89.5 fL MCH (test code = 1006) 30.6 PG MCHC (test code = 1007) 34.2 G/DL RDW (test code = 1038) 13.1 % NEUTROPHILS (test code = 1008) 54.6 % LYMPHOCYTES (test code = 1010) 37.2 % MONOCYTES (test code = 1011) 6.7 % EOSINOPHILS (test code = 1012) 1.0 % BASOPHILS (test code = 1013) 0.4 % IMMATURE GRANULOCYTES (test 0.1 % code = 1036) NUCLEATED RBCS (test code = 0.0 /100WBC'S 1065) PLATELET COUNT (test code = 231 K/UL 1015) ABSOLUTE NEUTROPHILS (test code 4.00 K/UL = 1066) ABSOLUTE LYMPHOCYTES (test code 2.73 K/UL = 1067) ABSOLUTE MONOCYTES (test code = 0.49 K/UL 1068) ABSOLUTE EOSINOPHILS (test code 0.07 K/UL = 1040) ABSOLUTE BASOPHILS (test code = 0.03 K/UL 1069) ABS IMMATURE GRANULOCYTES (test 0.01 K/UL code = 1020) ABS NUCLEATED RBCS (test code = 0.00 K/UL 24968) CBC W/AUTO [id number] 00:00:00 Test Item Value Reference Range Interpretation Comments WBC (test code = 1001) 7.3 K/UL RBC (test code = 1002) 4.21 M/UL HEMOGLOBIN (test code = 1003) 12.9 G/DL HEMATOCRIT (test code = 1004) 37.7 % MCV (test code = 1005) 89.5 fL MCH (test code = 1006) 30.6 PG MCHC (test code = 1007) 34.2 G/DL RDW (test code = 1038) 13.1 % NEUTROPHILS (test code = 1008) 54.6 % LYMPHOCYTES (test code = 1010) 37.2 % MONOCYTES (test code = 1011) 6.7 % EOSINOPHILS (test code = 1012) 1.0 % BASOPHILS (test code = 1013) 0.4 % IMMATURE GRANULOCYTES (test 0.1 % code = 1036) NUCLEATED RBCS (test code = 0.0 /100WBC'S 1065) PLATELET COUNT (test code = 231 K/UL 1015) ABSOLUTE NEUTROPHILS (test code 4.00 K/UL = 1066) ABSOLUTE LYMPHOCYTES (test code 2.73 K/UL = 1067) ABSOLUTE MONOCYTES (test code = 0.49 K/UL 1068) ABSOLUTE EOSINOPHILS (test code 0.07 K/UL = 1040) ABSOLUTE BASOPHILS (test code = 0.03 K/UL 1069) ABS IMMATURE GRANULOCYTES (test 0.01 K/UL code = 1020) ABS NUCLEATED RBCS (test code = 0.00 K/UL 53370) CBC W/AUTO [id number] 00:00:00 Test Item Value Reference Range Interpretation Comments WBC (test code = 1001) 7.3 K/UL RBC (test code = 1002) 4.21 M/UL HEMOGLOBIN (test code = 1003) 12.9 G/DL HEMATOCRIT (test code = 1004) 37.7 % MCV (test code = 1005) 89.5 fL MCH (test code = 1006) 30.6 PG MCHC (test code = 1007) 34.2 G/DL RDW (test code = 1038) 13.1 % NEUTROPHILS (test code = 1008) 54.6 % LYMPHOCYTES (test code = 1010) 37.2 % MONOCYTES (test code = 1011) 6.7 % EOSINOPHILS (test code = 1012) 1.0 % BASOPHILS (test code = 1013) 0.4 % IMMATURE GRANULOCYTES (test 0.1 % code = 1036) NUCLEATED RBCS (test code = 0.0 /100WBC'S 1065) PLATELET COUNT (test code = 231 K/UL 1015) ABSOLUTE NEUTROPHILS (test code 4.00 K/UL = 1066) ABSOLUTE LYMPHOCYTES (test code 2.73 K/UL = 1067) ABSOLUTE MONOCYTES (test code = 0.49 K/UL 1068) ABSOLUTE EOSINOPHILS (test code 0.07 K/UL = 1040) ABSOLUTE BASOPHILS (test code = 0.03 K/UL 1069) ABS IMMATURE GRANULOCYTES (test 0.01 K/UL code = 1020) ABS NUCLEATED RBCS (test code = 0.00 K/UL 07593) CBC W/AUTO [id number] 00:00:00 Test Item Value Reference Range Interpretation Comments WBC (test code = 1001) 7.3 K/UL RBC (test code = 1002) 4.21 M/UL HEMOGLOBIN (test code = 1003) 12.9 G/DL HEMATOCRIT (test code = 1004) 37.7 % MCV (test code = 1005) 89.5 fL MCH (test code = 1006) 30.6 PG MCHC (test code = 1007) 34.2 G/DL RDW (test code = 1038) 13.1 % NEUTROPHILS (test code = 1008) 54.6 % LYMPHOCYTES (test code = 1010) 37.2 % MONOCYTES (test code = 1011) 6.7 % EOSINOPHILS (test code = 1012) 1.0 % BASOPHILS (test code = 1013) 0.4 % IMMATURE GRANULOCYTES (test 0.1 % code = 1036) NUCLEATED RBCS (test code = 0.0 /100WBC'S 1065) PLATELET COUNT (test code = 231 K/UL 1015) ABSOLUTE NEUTROPHILS (test code 4.00 K/UL = 1066) ABSOLUTE LYMPHOCYTES (test code 2.73 K/UL = 1067) ABSOLUTE MONOCYTES (test code = 0.49 K/UL 1068) ABSOLUTE EOSINOPHILS (test code 0.07 K/UL = 1040) ABSOLUTE BASOPHILS (test code = 0.03 K/UL 1069) ABS IMMATURE GRANULOCYTES (test 0.01 K/UL code = 1020) ABS NUCLEATED RBCS (test code = 0.00 K/UL 29716) CBC W/AUTO [id number] 00:00:00 Test Item Value Reference Range Interpretation Comments WBC (test code = 1001) 7.3 K/UL RBC (test code = 1002) 4.21 M/UL HEMOGLOBIN (test code = 1003) 12.9 G/DL HEMATOCRIT (test code = 1004) 37.7 % MCV (test code = 1005) 89.5 fL MCH (test code = 1006) 30.6 PG MCHC (test code = 1007) 34.2 G/DL RDW (test code = 1038) 13.1 % NEUTROPHILS (test code = 1008) 54.6 % LYMPHOCYTES (test code = 1010) 37.2 % MONOCYTES (test code = 1011) 6.7 % EOSINOPHILS (test code = 1012) 1.0 % BASOPHILS (test code = 1013) 0.4 % IMMATURE GRANULOCYTES (test 0.1 % code = 1036) NUCLEATED RBCS (test code = 0.0 /100WBC'S 1065) PLATELET COUNT (test code = 231 K/UL 1015) ABSOLUTE NEUTROPHILS (test code 4.00 K/UL = 1066) ABSOLUTE LYMPHOCYTES (test code 2.73 K/UL = 1067) ABSOLUTE MONOCYTES (test code = 0.49 K/UL 1068) ABSOLUTE EOSINOPHILS (test code 0.07 K/UL = 1040) ABSOLUTE BASOPHILS (test code = 0.03 K/UL 1069) ABS IMMATURE GRANULOCYTES (test 0.01 K/UL code = 1020) ABS NUCLEATED RBCS (test code = 0.00 K/UL 74728) CBC W/AUTO [id number] 00:00:00 Test Item Value Reference Range Interpretation Comments WBC (test code = 1001) 7.3 K/UL RBC (test code = 1002) 4.21 M/UL HEMOGLOBIN (test code = 1003) 12.9 G/DL HEMATOCRIT (test code = 1004) 37.7 % MCV (test code = 1005) 89.5 fL MCH (test code = 1006) 30.6 PG MCHC (test code = 1007) 34.2 G/DL RDW (test code = 1038) 13.1 % NEUTROPHILS (test code = 1008) 54.6 % LYMPHOCYTES (test code = 1010) 37.2 % MONOCYTES (test code = 1011) 6.7 % EOSINOPHILS (test code = 1012) 1.0 % BASOPHILS (test code = 1013) 0.4 % IMMATURE GRANULOCYTES (test 0.1 % code = 1036) NUCLEATED RBCS (test code = 0.0 /100WBC'S 1065) PLATELET COUNT (test code = 231 K/UL 1015) ABSOLUTE NEUTROPHILS (test code 4.00 K/UL = 1066) ABSOLUTE LYMPHOCYTES (test code 2.73 K/UL = 1067) ABSOLUTE MONOCYTES (test code = 0.49 K/UL 1068) ABSOLUTE EOSINOPHILS (test code 0.07 K/UL = 1040) ABSOLUTE BASOPHILS (test code = 0.03 K/UL 1069) ABS IMMATURE GRANULOCYTES (test 0.01 K/UL code = 1020) ABS NUCLEATED RBCS (test code = 0.00 K/UL 75213) CBC W/AUTO [id number] 00:00:00 Test Item Value Reference Range Interpretation Comments WBC (test code = 1001) 7.3 K/UL RBC (test code = 1002) 4.21 M/UL HEMOGLOBIN (test code = 1003) 12.9 G/DL HEMATOCRIT (test code = 1004) 37.7 % MCV (test code = 1005) 89.5 fL MCH (test code = 1006) 30.6 PG MCHC (test code = 1007) 34.2 G/DL RDW (test code = 1038) 13.1 % NEUTROPHILS (test code = 1008) 54.6 % LYMPHOCYTES (test code = 1010) 37.2 % MONOCYTES (test code = 1011) 6.7 % EOSINOPHILS (test code = 1012) 1.0 % BASOPHILS (test code = 1013) 0.4 % IMMATURE GRANULOCYTES (test 0.1 % code = 1036) NUCLEATED RBCS (test code = 0.0 /100WBC'S 1065) PLATELET COUNT (test code = 231 K/UL 1015) ABSOLUTE NEUTROPHILS (test code 4.00 K/UL = 1066) ABSOLUTE LYMPHOCYTES (test code 2.73 K/UL = 1067) ABSOLUTE MONOCYTES (test code = 0.49 K/UL 1068) ABSOLUTE EOSINOPHILS (test code 0.07 K/UL = 1040) ABSOLUTE BASOPHILS (test code = 0.03 K/UL 1069) ABS IMMATURE GRANULOCYTES (test 0.01 K/UL code = 1020) ABS NUCLEATED RBCS (test code = 0.00 K/UL 97459) CBC W/AUTO [id number] 00:00:00 Test Item Value Reference Range Interpretation Comments WBC (test code = 1001) 7.3 K/UL RBC (test code = 1002) 4.21 M/UL HEMOGLOBIN (test code = 1003) 12.9 G/DL HEMATOCRIT (test code = 1004) 37.7 % MCV (test code = 1005) 89.5 fL MCH (test code = 1006) 30.6 PG MCHC (test code = 1007) 34.2 G/DL RDW (test code = 1038) 13.1 % NEUTROPHILS (test code = 1008) 54.6 % LYMPHOCYTES (test code = 1010) 37.2 % MONOCYTES (test code = 1011) 6.7 % EOSINOPHILS (test code = 1012) 1.0 % BASOPHILS (test code = 1013) 0.4 % IMMATURE GRANULOCYTES (test 0.1 % code = 1036) NUCLEATED RBCS (test code = 0.0 /100WBC'S 1065) PLATELET COUNT (test code = 231 K/UL 1015) ABSOLUTE NEUTROPHILS (test code 4.00 K/UL = 1066) ABSOLUTE LYMPHOCYTES (test code 2.73 K/UL = 1067) ABSOLUTE MONOCYTES (test code = 0.49 K/UL 1068) ABSOLUTE EOSINOPHILS (test code 0.07 K/UL = 1040) ABSOLUTE BASOPHILS (test code = 0.03 K/UL 1069) ABS IMMATURE GRANULOCYTES (test 0.01 K/UL code = 1020) ABS NUCLEATED RBCS (test code = 0.00 K/UL 49652) CBC W/AUTO [id number] 00:00:00 Test Item Value Reference Range Interpretation Comments WBC (test code = 1001) 7.3 K/UL RBC (test code = 1002) 4.21 M/UL HEMOGLOBIN (test code = 1003) 12.9 G/DL HEMATOCRIT (test code = 1004) 37.7 % MCV (test code = 1005) 89.5 fL MCH (test code = 1006) 30.6 PG MCHC (test code = 1007) 34.2 G/DL RDW (test code = 1038) 13.1 % NEUTROPHILS (test code = 1008) 54.6 % LYMPHOCYTES (test code = 1010) 37.2 % MONOCYTES (test code = 1011) 6.7 % EOSINOPHILS (test code = 1012) 1.0 % BASOPHILS (test code = 1013) 0.4 % IMMATURE GRANULOCYTES (test 0.1 % code = 1036) NUCLEATED RBCS (test code = 0.0 /100WBC'S 1065) PLATELET COUNT (test code = 231 K/UL 1015) ABSOLUTE NEUTROPHILS (test code 4.00 K/UL = 1066) ABSOLUTE LYMPHOCYTES (test code 2.73 K/UL = 1067) ABSOLUTE MONOCYTES (test code = 0.49 K/UL 1068) ABSOLUTE EOSINOPHILS (test code 0.07 K/UL = 1040) ABSOLUTE BASOPHILS (test code = 0.03 K/UL 1069) ABS IMMATURE GRANULOCYTES (test 0.01 K/UL code = 1020) ABS NUCLEATED RBCS (test code = 0.00 K/UL 97654) CBC W/AUTO [id number] 00:00:00 Test Item Value Reference Range Interpretation Comments WBC (test code = 1001) 7.3 K/UL RBC (test code = 1002) 4.21 M/UL HEMOGLOBIN (test code = 1003) 12.9 G/DL HEMATOCRIT (test code = 1004) 37.7 % MCV (test code = 1005) 89.5 fL MCH (test code = 1006) 30.6 PG MCHC (test code = 1007) 34.2 G/DL RDW (test code = 1038) 13.1 % NEUTROPHILS (test code = 1008) 54.6 % LYMPHOCYTES (test code = 1010) 37.2 % MONOCYTES (test code = 1011) 6.7 % EOSINOPHILS (test code = 1012) 1.0 % BASOPHILS (test code = 1013) 0.4 % IMMATURE GRANULOCYTES (test 0.1 % code = 1036) NUCLEATED RBCS (test code = 0.0 /100WBC'S 1065) PLATELET COUNT (test code = 231 K/UL 1015) ABSOLUTE NEUTROPHILS (test code 4.00 K/UL = 1066) ABSOLUTE LYMPHOCYTES (test code 2.73 K/UL = 1067) ABSOLUTE MONOCYTES (test code = 0.49 K/UL 1068) ABSOLUTE EOSINOPHILS (test code 0.07 K/UL = 1040) ABSOLUTE BASOPHILS (test code = 0.03 K/UL 1069) ABS IMMATURE GRANULOCYTES (test 0.01 K/UL code = 1020) ABS NUCLEATED RBCS (test code = 0.00 K/UL 62539) CBC W/AUTO [id number] 00:00:00 Test Item Value Reference Range Interpretation Comments WBC (test code = 1001) 7.3 K/UL RBC (test code = 1002) 4.21 M/UL HEMOGLOBIN (test code = 1003) 12.9 G/DL HEMATOCRIT (test code = 1004) 37.7 % MCV (test code = 1005) 89.5 fL MCH (test code = 1006) 30.6 PG MCHC (test code = 1007) 34.2 G/DL RDW (test code = 1038) 13.1 % NEUTROPHILS (test code = 1008) 54.6 % LYMPHOCYTES (test code = 1010) 37.2 % MONOCYTES (test code = 1011) 6.7 % EOSINOPHILS (test code = 1012) 1.0 % BASOPHILS (test code = 1013) 0.4 % IMMATURE GRANULOCYTES (test 0.1 % code = 1036) NUCLEATED RBCS (test code = 0.0 /100WBC'S 1065) PLATELET COUNT (test code = 231 K/UL 1015) ABSOLUTE NEUTROPHILS (test code 4.00 K/UL = 1066) ABSOLUTE LYMPHOCYTES (test code 2.73 K/UL = 1067) ABSOLUTE MONOCYTES (test code = 0.49 K/UL 1068) ABSOLUTE EOSINOPHILS (test code 0.07 K/UL = 1040) ABSOLUTE BASOPHILS (test code = 0.03 K/UL 1069) ABS IMMATURE GRANULOCYTES (test 0.01 K/UL code = 1020) ABS NUCLEATED RBCS (test code = 0.00 K/UL 74082) CBC W/AUTO DIFF WITH [id number] 12:11:11 Test Item Value Reference Range Interpretation [...] RBCS TEST NOT 0.00-0.11 (test code = 19785) PERFORMED K/UL COMMENTS (test code = TEST NOT 1016) PERFORMED CBC W/AUTO [id number] 00:00:00 Test Item Value Reference Range Interpretation Comments WBC (test code = 1001) TEST NOT PERFORMED K/UL RBC (test code = 1002) TEST NOT PERFORMED M/UL HEMOGLOBIN (test code = TEST NOT PERFORMED 1003) G/DL HEMATOCRIT (test code = TEST NOT PERFORMED % 1004) MCV (test code = 1005) TEST NOT PERFORMED fL MCH (test code = 1006) TEST NOT PERFORMED PG MCHC (test code = 1007) TEST NOT PERFORMED G/DL RDW (test code = 1038) TEST NOT PERFORMED % NEUTROPHILS (test code = TEST NOT PERFORMED % 1008) BANDS (test code = 1009) TEST NOT PERFORMED % LYMPHOCYTES (test code = TEST NOT PERFORMED % 1010) MONOCYTES (test code = TEST NOT PERFORMED % 1011) EOSINOPHILS (test code = TEST NOT PERFORMED % 1012) BASOPHILS (test code = TEST NOT PERFORMED % 1013) IMMATURE GRANULOCYTES TEST NOT PERFORMED % (test code = 1036) METAMYELOCYTES (test code TEST NOT PERFORMED % = 1061) MYELOCYTES (test code = TEST NOT PERFORMED % 1062) PROMYELOCYTES (test code TEST NOT PERFORMED % = 1063) BLASTS (test code = 1064) TEST NOT PERFORMED % NUCLEATED RBCS (test code TEST NOT PERFORMED = 1065) /100WBC'S PLATELET COUNT (test code TEST NOT PERFORMED = 1015) K/UL ABSOLUTE NEUTROPHILS TEST NOT PERFORMED (test code = 1066) K/UL ABSOLUTE LYMPHOCYTES TEST NOT PERFORMED (test code = 1067) K/UL ABSOLUTE MONOCYTES (test TEST NOT PERFORMED code = 1068) K/UL ABSOLUTE EOSINOPHILS TEST NOT PERFORMED (test code = 1040) K/UL ABSOLUTE BASOPHILS (test TEST NOT PERFORMED code = 1069) K/UL ABS IMMATURE GRANULOCYTES TEST NOT PERFORMED (test code = 1020) K/UL ABS NUCLEATED RBCS (test TEST NOT PERFORMED code = 22680) K/UL COMMENTS (test code = TEST NOT PERFORMED 1016) CBC W/AUTO [id number] 00:00:00 Test Item Value Reference Range Interpretation Comments WBC (test code = 1001) TEST NOT PERFORMED K/UL RBC (test code = 1002) TEST NOT PERFORMED M/UL HEMOGLOBIN (test code = TEST NOT PERFORMED 1003) G/DL HEMATOCRIT (test code = TEST NOT PERFORMED % 1004) MCV (test code = 1005) TEST NOT PERFORMED fL MCH (test code = 1006) TEST NOT PERFORMED PG MCHC (test code = 1007) TEST NOT PERFORMED G/DL RDW (test code = 1038) TEST NOT PERFORMED % NEUTROPHILS (test code = TEST NOT PERFORMED % 1008) BANDS (test code = 1009) TEST NOT PERFORMED % LYMPHOCYTES (test code = TEST NOT PERFORMED % 1010) MONOCYTES (test code = TEST NOT PERFORMED % 1011) EOSINOPHILS (test code = TEST NOT PERFORMED % 1012) BASOPHILS (test code = TEST NOT PERFORMED % 1013) IMMATURE GRANULOCYTES TEST NOT PERFORMED % (test code = 1036) METAMYELOCYTES (test code TEST NOT PERFORMED % = 1061) MYELOCYTES (test code = TEST NOT PERFORMED % 1062) PROMYELOCYTES (test code TEST NOT PERFORMED % = 1063) BLASTS (test code = 1064) TEST NOT PERFORMED % NUCLEATED RBCS (test code TEST NOT PERFORMED = 1065) /100WBC'S PLATELET COUNT (test code TEST NOT PERFORMED = 1015) K/UL ABSOLUTE NEUTROPHILS TEST NOT PERFORMED (test code = 1066) K/UL ABSOLUTE LYMPHOCYTES TEST NOT PERFORMED (test code = 1067) K/UL ABSOLUTE MONOCYTES (test TEST NOT PERFORMED code = 1068) K/UL ABSOLUTE EOSINOPHILS TEST NOT PERFORMED (test code = 1040) K/UL ABSOLUTE BASOPHILS (test TEST NOT PERFORMED code = 1069) K/UL ABS IMMATURE GRANULOCYTES TEST NOT PERFORMED (test code = 1020) K/UL ABS NUCLEATED RBCS (test TEST NOT PERFORMED code = 68299) K/UL COMMENTS (test code = TEST NOT PERFORMED 1016) CBC W/AUTO [id number] 00:00:00 Test Item Value Reference Range Interpretation Comments WBC (test code = 1001) TEST NOT PERFORMED K/UL RBC (test code = 1002) TEST NOT PERFORMED M/UL HEMOGLOBIN (test code = TEST NOT PERFORMED 1003) G/DL HEMATOCRIT (test code = TEST NOT PERFORMED % 1004) MCV (test code = 1005) TEST NOT PERFORMED fL MCH (test code = 1006) TEST NOT PERFORMED PG MCHC (test code = 1007) TEST NOT PERFORMED G/DL RDW (test code = 1038) TEST NOT PERFORMED % NEUTROPHILS (test code = TEST NOT PERFORMED % 1008) BANDS (test code = 1009) TEST NOT PERFORMED % LYMPHOCYTES (test code = TEST NOT PERFORMED % 1010) MONOCYTES (test code = TEST NOT PERFORMED % 1011) EOSINOPHILS (test code = TEST NOT PERFORMED % 1012) BASOPHILS (test code = TEST NOT PERFORMED % 1013) IMMATURE GRANULOCYTES TEST NOT PERFORMED % (test code = 1036) METAMYELOCYTES (test code TEST NOT PERFORMED % = 1061) MYELOCYTES (test code = TEST NOT PERFORMED % 1062) PROMYELOCYTES (test code TEST NOT PERFORMED % = 1063) BLASTS (test code = 1064) TEST NOT PERFORMED % NUCLEATED RBCS (test code TEST NOT PERFORMED = 1065) /100WBC'S PLATELET COUNT (test code TEST NOT PERFORMED = 1015) K/UL ABSOLUTE NEUTROPHILS TEST NOT PERFORMED (test code = 1066) K/UL ABSOLUTE LYMPHOCYTES TEST NOT PERFORMED (test code = 1067) K/UL ABSOLUTE MONOCYTES (test TEST NOT PERFORMED code = 1068) K/UL ABSOLUTE EOSINOPHILS TEST NOT PERFORMED (test code = 1040) K/UL ABSOLUTE BASOPHILS (test TEST NOT PERFORMED code = 1069) K/UL ABS IMMATURE GRANULOCYTES TEST NOT PERFORMED (test code = 1020) K/UL ABS NUCLEATED RBCS (test TEST NOT PERFORMED code = 99236) K/UL COMMENTS (test code = TEST NOT PERFORMED 1016) CBC W/AUTO [id number] 00:00:00 Test Item Value Reference Range Interpretation Comments WBC (test code = 1001) TEST NOT PERFORMED K/UL RBC (test code = 1002) TEST NOT PERFORMED M/UL HEMOGLOBIN (test code = TEST NOT PERFORMED 1003) G/DL HEMATOCRIT (test code = TEST NOT PERFORMED % 1004) MCV (test code = 1005) TEST NOT PERFORMED fL MCH (test code = 1006) TEST NOT PERFORMED PG MCHC (test code = 1007) TEST NOT PERFORMED G/DL RDW (test code = 1038) TEST NOT PERFORMED % NEUTROPHILS (test code = TEST NOT PERFORMED % 1008) BANDS (test code = 1009) TEST NOT PERFORMED % LYMPHOCYTES (test code = TEST NOT PERFORMED % 1010) MONOCYTES (test code = TEST NOT PERFORMED % 1011) EOSINOPHILS (test code = TEST NOT PERFORMED % 1012) BASOPHILS (test code = TEST NOT PERFORMED % 1013) IMMATURE GRANULOCYTES TEST NOT PERFORMED % (test code = 1036) METAMYELOCYTES (test code TEST NOT PERFORMED % = 1061) MYELOCYTES (test code = TEST NOT PERFORMED % 1062) PROMYELOCYTES (test code TEST NOT PERFORMED % = 1063) BLASTS (test code = 1064) TEST NOT PERFORMED % NUCLEATED RBCS (test code TEST NOT PERFORMED = 1065) /100WBC'S PLATELET COUNT (test code TEST NOT PERFORMED = 1015) K/UL ABSOLUTE NEUTROPHILS TEST NOT PERFORMED (test code = 1066) K/UL ABSOLUTE LYMPHOCYTES TEST NOT PERFORMED (test code = 1067) K/UL ABSOLUTE MONOCYTES (test TEST NOT PERFORMED code = 1068) K/UL ABSOLUTE EOSINOPHILS TEST NOT PERFORMED (test code = 1040) K/UL ABSOLUTE BASOPHILS (test TEST NOT PERFORMED code = 1069) K/UL ABS IMMATURE GRANULOCYTES TEST NOT PERFORMED (test code = 1020) K/UL ABS NUCLEATED RBCS (test TEST NOT PERFORMED code = 74237) K/UL COMMENTS (test code = TEST NOT PERFORMED 1016) CBC W/AUTO [id number] 00:00:00 Test Item Value Reference Range Interpretation Comments WBC (test code = 1001) TEST NOT PERFORMED K/UL RBC (test code = 1002) TEST NOT PERFORMED M/UL HEMOGLOBIN (test code = TEST NOT PERFORMED 1003) G/DL HEMATOCRIT (test code = TEST NOT PERFORMED % 1004) MCV (test code = 1005) TEST NOT PERFORMED fL MCH (test code = 1006) TEST NOT PERFORMED PG MCHC (test code = 1007) TEST NOT PERFORMED G/DL RDW (test code = 1038) TEST NOT PERFORMED % NEUTROPHILS (test code = TEST NOT PERFORMED % 1008) BANDS (test code = 1009) TEST NOT PERFORMED % LYMPHOCYTES (test code = TEST NOT PERFORMED % 1010) MONOCYTES (test code = TEST NOT PERFORMED % 1011) EOSINOPHILS (test code = TEST NOT PERFORMED % 1012) BASOPHILS (test code = TEST NOT PERFORMED % 1013) IMMATURE GRANULOCYTES TEST NOT PERFORMED % (test code = 1036) METAMYELOCYTES (test code TEST NOT PERFORMED % = 1061) MYELOCYTES (test code = TEST NOT PERFORMED % 1062) PROMYELOCYTES (test code TEST NOT PERFORMED % = 1063) BLASTS (test code = 1064) TEST NOT PERFORMED % NUCLEATED RBCS (test code TEST NOT PERFORMED = 1065) /100WBC'S PLATELET COUNT (test code TEST NOT PERFORMED = 1015) K/UL ABSOLUTE NEUTROPHILS TEST NOT PERFORMED (test code = 1066) K/UL ABSOLUTE LYMPHOCYTES TEST NOT PERFORMED (test code = 1067) K/UL ABSOLUTE MONOCYTES (test TEST NOT PERFORMED code = 1068) K/UL ABSOLUTE EOSINOPHILS TEST NOT PERFORMED (test code = 1040) K/UL ABSOLUTE BASOPHILS (test TEST NOT PERFORMED code = 1069) K/UL ABS IMMATURE GRANULOCYTES TEST NOT PERFORMED (test code = 1020) K/UL ABS NUCLEATED RBCS (test TEST NOT PERFORMED code = 23891) K/UL COMMENTS (test code = TEST NOT PERFORMED 1016) CBC W/AUTO [id number] 00:00:00 Test Item Value Reference Range Interpretation Comments WBC (test code = 1001) TEST NOT PERFORMED K/UL RBC (test code = 1002) TEST NOT PERFORMED M/UL HEMOGLOBIN (test code = TEST NOT PERFORMED 1003) G/DL HEMATOCRIT (test code = TEST NOT PERFORMED % 1004) MCV (test code = 1005) TEST NOT PERFORMED fL MCH (test code = 1006) TEST NOT PERFORMED PG MCHC (test code = 1007) TEST NOT PERFORMED G/DL RDW (test code = 1038) TEST NOT PERFORMED % NEUTROPHILS (test code = TEST NOT PERFORMED % 1008) BANDS (test code = 1009) TEST NOT PERFORMED % LYMPHOCYTES (test code = TEST NOT PERFORMED % 1010) MONOCYTES (test code = TEST NOT PERFORMED % 1011) EOSINOPHILS (test code = TEST NOT PERFORMED % 1012) BASOPHILS (test code = TEST NOT PERFORMED % 1013) IMMATURE GRANULOCYTES TEST NOT PERFORMED % (test code = 1036) METAMYELOCYTES (test code TEST NOT PERFORMED % = 1061) MYELOCYTES (test code = TEST NOT PERFORMED % 1062) PROMYELOCYTES (test code TEST NOT PERFORMED % = 1063) BLASTS (test code = 1064) TEST NOT PERFORMED % NUCLEATED RBCS (test code TEST NOT PERFORMED = 1065) /100WBC'S PLATELET COUNT (test code TEST NOT PERFORMED = 1015) K/UL ABSOLUTE NEUTROPHILS TEST NOT PERFORMED (test code = 1066) K/UL ABSOLUTE LYMPHOCYTES TEST NOT PERFORMED (test code = 1067) K/UL ABSOLUTE MONOCYTES (test TEST NOT PERFORMED code = 1068) K/UL ABSOLUTE EOSINOPHILS TEST NOT PERFORMED (test code = 1040) K/UL ABSOLUTE BASOPHILS (test TEST NOT PERFORMED code = 1069) K/UL ABS IMMATURE GRANULOCYTES TEST NOT PERFORMED (test code = 1020) K/UL ABS NUCLEATED RBCS (test TEST NOT PERFORMED code = [id number]) K/UL COMMENTS (test code = TEST NOT PERFORMED 1016) CBC W/AUTO [id number] 00:00:00 Test Item Value Reference Range Interpretation Comments WBC (test code = 1001) TEST NOT PERFORMED K/UL RBC (test code = 1002) TEST NOT PERFORMED M/UL HEMOGLOBIN (test code = TEST NOT PERFORMED 1003) G/DL HEMATOCRIT (test code = TEST NOT PERFORMED % 1004) MCV (test code = 1005) TEST NOT PERFORMED fL MCH (test code = 1006) TEST NOT PERFORMED PG MCHC (test code = 1007) TEST NOT PERFORMED G/DL RDW (test code = 1038) TEST NOT PERFORMED % NEUTROPHILS (test code = TEST NOT PERFORMED % 1008) BANDS (test code = 1009) TEST NOT PERFORMED % LYMPHOCYTES (test code = TEST NOT PERFORMED % 1010) MONOCYTES (test code = TEST NOT PERFORMED % 1011) EOSINOPHILS (test code = TEST NOT PERFORMED % 1012) BASOPHILS (test code = TEST NOT PERFORMED % 1013) IMMATURE GRANULOCYTES TEST NOT PERFORMED % (test code = 1036) METAMYELOCYTES (test code TEST NOT PERFORMED % = 1061) MYELOCYTES (test code = TEST NOT PERFORMED % 1062) PROMYELOCYTES (test code TEST NOT PERFORMED % = 1063) BLASTS (test code = 1064) TEST NOT PERFORMED % NUCLEATED RBCS (test code TEST NOT PERFORMED = 1065) /100WBC'S PLATELET COUNT (test code TEST NOT PERFORMED = 1015) K/UL ABSOLUTE NEUTROPHILS TEST NOT PERFORMED (test code = 1066) K/UL ABSOLUTE LYMPHOCYTES TEST NOT PERFORMED (test code = 1067) K/UL ABSOLUTE MONOCYTES (test TEST NOT PERFORMED code = 1068) K/UL ABSOLUTE EOSINOPHILS TEST NOT PERFORMED (test code = 1040) K/UL ABSOLUTE BASOPHILS (test TEST NOT PERFORMED code = 1069) K/UL ABS IMMATURE GRANULOCYTES TEST NOT PERFORMED (test code = 1020) K/UL ABS NUCLEATED RBCS (test TEST NOT PERFORMED code = 24562) K/UL COMMENTS (test code = TEST NOT PERFORMED 1016) CBC W/AUTO [id number] 00:00:00 Test Item Value Reference Range Interpretation Comments WBC (test code = 1001) TEST NOT PERFORMED K/UL RBC (test code = 1002) TEST NOT PERFORMED M/UL HEMOGLOBIN (test code = TEST NOT PERFORMED 1003) G/DL HEMATOCRIT (test code = TEST NOT PERFORMED % 1004) MCV (test code = 1005) TEST NOT PERFORMED fL MCH (test code = 1006) TEST NOT PERFORMED PG MCHC (test code = 1007) TEST NOT PERFORMED G/DL RDW (test code = 1038) TEST NOT PERFORMED % NEUTROPHILS (test code = TEST NOT PERFORMED % 1008) BANDS (test code = 1009) TEST NOT PERFORMED % LYMPHOCYTES (test code = TEST NOT PERFORMED % 1010) MONOCYTES (test code = TEST NOT PERFORMED % 1011) EOSINOPHILS (test code = TEST NOT PERFORMED % 1012) BASOPHILS (test code = TEST NOT PERFORMED % 1013) IMMATURE GRANULOCYTES TEST NOT PERFORMED % (test code = 1036) METAMYELOCYTES (test code TEST NOT PERFORMED % = 1061) MYELOCYTES (test code = TEST NOT PERFORMED % 1062) PROMYELOCYTES (test code TEST NOT PERFORMED % = 1063) BLASTS (test code = 1064) TEST NOT PERFORMED % NUCLEATED RBCS (test code TEST NOT PERFORMED = 1065) /100WBC'S PLATELET COUNT (test code TEST NOT PERFORMED = 1015) K/UL ABSOLUTE NEUTROPHILS TEST NOT PERFORMED (test code = 1066) K/UL ABSOLUTE LYMPHOCYTES TEST NOT PERFORMED (test code = 1067) K/UL ABSOLUTE MONOCYTES (test TEST NOT PERFORMED code = 1068) K/UL ABSOLUTE EOSINOPHILS TEST NOT PERFORMED (test code = 1040) K/UL ABSOLUTE BASOPHILS (test TEST NOT PERFORMED code = 1069) K/UL ABS IMMATURE GRANULOCYTES TEST NOT PERFORMED (test code = 1020) K/UL ABS NUCLEATED RBCS (test TEST NOT PERFORMED code = 58354) K/UL COMMENTS (test code = TEST NOT PERFORMED 1016) CBC W/AUTO [id number] 00:00:00 Test Item Value Reference Range Interpretation Comments WBC (test code = 1001) TEST NOT PERFORMED K/UL RBC (test code = 1002) TEST NOT PERFORMED M/UL HEMOGLOBIN (test code = TEST NOT PERFORMED 1003) G/DL HEMATOCRIT (test code = TEST NOT PERFORMED % 1004) MCV (test code = 1005) TEST NOT PERFORMED fL MCH (test code = 1006) TEST NOT PERFORMED PG MCHC (test code = 1007) TEST NOT PERFORMED G/DL RDW (test code = 1038) TEST NOT PERFORMED % NEUTROPHILS (test code = TEST NOT PERFORMED % 1008) BANDS (test code = 1009) TEST NOT PERFORMED % LYMPHOCYTES (test code = TEST NOT PERFORMED % 1010) MONOCYTES (test code = TEST NOT PERFORMED % 1011) EOSINOPHILS (test code = TEST NOT PERFORMED % 1012) BASOPHILS (test code = TEST NOT PERFORMED % 1013) IMMATURE GRANULOCYTES TEST NOT PERFORMED % (test code = 1036) METAMYELOCYTES (test code TEST NOT PERFORMED % = 1061) MYELOCYTES (test code = TEST NOT PERFORMED % 1062) PROMYELOCYTES (test code TEST NOT PERFORMED % = 1063) BLASTS (test code = 1064) TEST NOT PERFORMED % NUCLEATED RBCS (test code TEST NOT PERFORMED = 1065) /100WBC'S PLATELET COUNT (test code TEST NOT PERFORMED = 1015) K/UL ABSOLUTE NEUTROPHILS TEST NOT PERFORMED (test code = 1066) K/UL ABSOLUTE LYMPHOCYTES TEST NOT PERFORMED (test code = 1067) K/UL ABSOLUTE MONOCYTES (test TEST NOT PERFORMED code = 1068) K/UL ABSOLUTE EOSINOPHILS TEST NOT PERFORMED (test code = 1040) K/UL ABSOLUTE BASOPHILS (test TEST NOT PERFORMED code = 1069) K/UL ABS IMMATURE GRANULOCYTES TEST NOT PERFORMED (test code = 1020) K/UL ABS NUCLEATED RBCS (test TEST NOT PERFORMED code = 96313) K/UL COMMENTS (test code = TEST NOT PERFORMED 1016) CBC W/AUTO [id number] 00:00:00 Test Item Value Reference Range Interpretation Comments WBC (test code = 1001) TEST NOT PERFORMED K/UL RBC (test code = 1002) TEST NOT PERFORMED M/UL HEMOGLOBIN (test code = TEST NOT PERFORMED 1003) G/DL HEMATOCRIT (test code = TEST NOT PERFORMED % 1004) MCV (test code = 1005) TEST NOT PERFORMED fL MCH (test code = 1006) TEST NOT PERFORMED PG MCHC (test code = 1007) TEST NOT PERFORMED G/DL RDW (test code = 1038) TEST NOT PERFORMED % NEUTROPHILS (test code = TEST NOT PERFORMED % 1008) BANDS (test code = 1009) TEST NOT PERFORMED % LYMPHOCYTES (test code = TEST NOT PERFORMED % 1010) MONOCYTES (test code = TEST NOT PERFORMED % 1011) EOSINOPHILS (test code = TEST NOT PERFORMED % 1012) BASOPHILS (test code = TEST NOT PERFORMED % 1013) IMMATURE GRANULOCYTES TEST NOT PERFORMED % (test code = 1036) METAMYELOCYTES (test code TEST NOT PERFORMED % = 1061) MYELOCYTES (test code = TEST NOT PERFORMED % 1062) PROMYELOCYTES (test code TEST NOT PERFORMED % = 1063) BLASTS (test code = 1064) TEST NOT PERFORMED % NUCLEATED RBCS (test code TEST NOT PERFORMED = 1065) /100WBC'S PLATELET COUNT (test code TEST NOT PERFORMED = 1015) K/UL ABSOLUTE NEUTROPHILS TEST NOT PERFORMED (test code = 1066) K/UL ABSOLUTE LYMPHOCYTES TEST NOT PERFORMED (test code = 1067) K/UL ABSOLUTE MONOCYTES (test TEST NOT PERFORMED code = 1068) K/UL ABSOLUTE EOSINOPHILS TEST NOT PERFORMED (test code = 1040) K/UL ABSOLUTE BASOPHILS (test TEST NOT PERFORMED code = 1069) K/UL ABS IMMATURE GRANULOCYTES TEST NOT PERFORMED (test code = 1020) K/UL ABS NUCLEATED RBCS (test TEST NOT PERFORMED code = 89220) K/UL COMMENTS (test code = TEST NOT PERFORMED 1016) CBC W/AUTO [id number] 00:00:00 Test Item Value Reference Range Interpretation Comments WBC (test code = 1001) TEST NOT PERFORMED K/UL RBC (test code = 1002) TEST NOT PERFORMED M/UL HEMOGLOBIN (test code = TEST NOT PERFORMED 1003) G/DL HEMATOCRIT (test code = TEST NOT PERFORMED % 1004) MCV (test code = 1005) TEST NOT PERFORMED fL MCH (test code = 1006) TEST NOT PERFORMED PG MCHC (test code = 1007) TEST NOT PERFORMED G/DL RDW (test code = 1038) TEST NOT PERFORMED % NEUTROPHILS (test code = TEST NOT PERFORMED % 1008) BANDS (test code = 1009) TEST NOT PERFORMED % LYMPHOCYTES (test code = TEST NOT PERFORMED % 1010) MONOCYTES (test code = TEST NOT PERFORMED % 1011) EOSINOPHILS (test code = TEST NOT PERFORMED % 1012) BASOPHILS (test code = TEST NOT PERFORMED % 1013) IMMATURE GRANULOCYTES TEST NOT PERFORMED % (test code = 1036) METAMYELOCYTES (test code TEST NOT PERFORMED % = 1061) MYELOCYTES (test code = TEST NOT PERFORMED % 1062) PROMYELOCYTES (test code TEST NOT PERFORMED % = 1063) BLASTS (test code = 1064) TEST NOT PERFORMED % NUCLEATED RBCS (test code TEST NOT PERFORMED = 1065) /100WBC'S PLATELET COUNT (test code TEST NOT PERFORMED = 1015) K/UL ABSOLUTE NEUTROPHILS TEST NOT PERFORMED (test code = 1066) K/UL ABSOLUTE LYMPHOCYTES TEST NOT PERFORMED (test code = 1067) K/UL ABSOLUTE MONOCYTES (test TEST NOT PERFORMED code = 1068) K/UL ABSOLUTE EOSINOPHILS TEST NOT PERFORMED (test code = 1040) K/UL ABSOLUTE BASOPHILS (test TEST NOT PERFORMED code = 1069) K/UL ABS IMMATURE GRANULOCYTES TEST NOT PERFORMED (test code = 1020) K/UL ABS NUCLEATED RBCS (test TEST NOT PERFORMED code = 72913) K/UL COMMENTS (test code = TEST NOT PERFORMED 1016) CBC W/AUTO [id number] 00:00:00 Test Item Value Reference Range Interpretation Comments WBC (test code = 1001) TEST NOT PERFORMED K/UL RBC (test code = 1002) TEST NOT PERFORMED M/UL HEMOGLOBIN (test code = TEST NOT PERFORMED 1003) G/DL HEMATOCRIT (test code = TEST NOT PERFORMED % 1004) MCV (test code = 1005) TEST NOT PERFORMED fL MCH (test code = 1006) TEST NOT PERFORMED PG MCHC (test code = 1007) TEST NOT PERFORMED G/DL RDW (test code = 1038) TEST NOT PERFORMED % NEUTROPHILS (test code = TEST NOT PERFORMED % 1008) BANDS (test code = 1009) TEST NOT PERFORMED % LYMPHOCYTES (test code = TEST NOT PERFORMED % 1010) MONOCYTES (test code = TEST NOT PERFORMED % 1011) EOSINOPHILS (test code = TEST NOT PERFORMED % 1012) BASOPHILS (test code = TEST NOT PERFORMED % 1013) IMMATURE GRANULOCYTES TEST NOT PERFORMED % (test code = 1036) METAMYELOCYTES (test code TEST NOT PERFORMED % = 1061) MYELOCYTES (test code = TEST NOT PERFORMED % 1062) PROMYELOCYTES (test code TEST NOT PERFORMED % = 1063) BLASTS (test code = 1064) TEST NOT PERFORMED % NUCLEATED RBCS (test code TEST NOT PERFORMED = 1065) /100WBC'S PLATELET COUNT (test code TEST NOT PERFORMED = 1015) K/UL ABSOLUTE NEUTROPHILS TEST NOT PERFORMED (test code = 1066) K/UL ABSOLUTE LYMPHOCYTES TEST NOT PERFORMED (test code = 1067) K/UL ABSOLUTE MONOCYTES (test TEST NOT PERFORMED code = 1068) K/UL ABSOLUTE EOSINOPHILS TEST NOT PERFORMED (test code = 1040) K/UL ABSOLUTE BASOPHILS (test TEST NOT PERFORMED code = 1069) K/UL ABS IMMATURE GRANULOCYTES TEST NOT PERFORMED (test code = 1020) K/UL ABS NUCLEATED RBCS (test TEST NOT PERFORMED code = 99015) K/UL COMMENTS (test code = TEST NOT PERFORMED 1016) CBC W/AUTO [id number] 00:00:00 Test Item Value Reference Range Interpretation Comments WBC (test code = 1001) TEST NOT PERFORMED K/UL RBC (test code = 1002) TEST NOT PERFORMED M/UL HEMOGLOBIN (test code = TEST NOT PERFORMED 1003) G/DL HEMATOCRIT (test code = TEST NOT PERFORMED % 1004) MCV (test code = 1005) TEST NOT PERFORMED fL MCH (test code = 1006) TEST NOT PERFORMED PG MCHC (test code = 1007) TEST NOT PERFORMED G/DL RDW (test code = 1038) TEST NOT PERFORMED % NEUTROPHILS (test code = TEST NOT PERFORMED % 1008) BANDS (test code = 1009) TEST NOT PERFORMED % LYMPHOCYTES (test code = TEST NOT PERFORMED % 1010) MONOCYTES (test code = TEST NOT PERFORMED % 1011) EOSINOPHILS (test code = TEST NOT PERFORMED % 1012) BASOPHILS (test code = TEST NOT PERFORMED % 1013) IMMATURE GRANULOCYTES TEST NOT PERFORMED % (test code = 1036) METAMYELOCYTES (test code TEST NOT PERFORMED % = 1061) MYELOCYTES (test code = TEST NOT PERFORMED % 1062) PROMYELOCYTES (test code TEST NOT PERFORMED % = 1063) BLASTS (test code = 1064) TEST NOT PERFORMED % NUCLEATED RBCS (test code TEST NOT PERFORMED = 1065) /100WBC'S PLATELET COUNT (test code TEST NOT PERFORMED = 1015) K/UL ABSOLUTE NEUTROPHILS TEST NOT PERFORMED (test code = 1066) K/UL ABSOLUTE LYMPHOCYTES TEST NOT PERFORMED (test code = 1067) K/UL ABSOLUTE MONOCYTES (test TEST NOT PERFORMED code = 1068) K/UL ABSOLUTE EOSINOPHILS TEST NOT PERFORMED (test code = 1040) K/UL ABSOLUTE BASOPHILS (test TEST NOT PERFORMED code = 1069) K/UL ABS IMMATURE GRANULOCYTES TEST NOT PERFORMED (test code = 1020) K/UL ABS NUCLEATED RBCS (test TEST NOT PERFORMED code = 94042) K/UL COMMENTS (test code = TEST NOT PERFORMED 1016) CBC W/AUTO [id number] 00:00:00 Test Item Value Reference Range Interpretation Comments WBC (test code = 1001) TEST NOT PERFORMED K/UL RBC (test code = 1002) TEST NOT PERFORMED M/UL HEMOGLOBIN (test code = TEST NOT PERFORMED 1003) G/DL HEMATOCRIT (test code = TEST NOT PERFORMED % 1004) MCV (test code = 1005) TEST NOT PERFORMED fL MCH (test code = 1006) TEST NOT PERFORMED PG MCHC (test code = 1007) TEST NOT PERFORMED G/DL RDW (test code = 1038) TEST NOT PERFORMED % NEUTROPHILS (test code = TEST NOT PERFORMED % 1008) BANDS (test code = 1009) TEST NOT PERFORMED % LYMPHOCYTES (test code = TEST NOT PERFORMED % 1010) MONOCYTES (test code = TEST NOT PERFORMED % 1011) EOSINOPHILS (test code = TEST NOT PERFORMED % 1012) BASOPHILS (test code = TEST NOT PERFORMED % 1013) IMMATURE GRANULOCYTES TEST NOT PERFORMED % (test code = 1036) METAMYELOCYTES (test code TEST NOT PERFORMED % = 1061) MYELOCYTES (test code = TEST NOT PERFORMED % 1062) PROMYELOCYTES (test code TEST NOT PERFORMED % = 1063) BLASTS (test code = 1064) TEST NOT PERFORMED % NUCLEATED RBCS (test code TEST NOT PERFORMED = 1065) /100WBC'S PLATELET COUNT (test code TEST NOT PERFORMED = 1015) K/UL ABSOLUTE NEUTROPHILS TEST NOT PERFORMED (test code = 1066) K/UL ABSOLUTE LYMPHOCYTES TEST NOT PERFORMED (test code = 1067) K/UL ABSOLUTE MONOCYTES (test TEST NOT PERFORMED code = 1068) K/UL ABSOLUTE EOSINOPHILS TEST NOT PERFORMED (test code = 1040) K/UL ABSOLUTE BASOPHILS (test TEST NOT PERFORMED code = 1069) K/UL ABS IMMATURE GRANULOCYTES TEST NOT PERFORMED (test code = 1020) K/UL ABS NUCLEATED RBCS (test TEST NOT PERFORMED code = 13400) K/UL COMMENTS (test code = TEST NOT PERFORMED 1016) CBC W/AUTO [id number] 00:00:00 Test Item Value Reference Range Interpretation Comments WBC (test code = 1001) TEST NOT PERFORMED K/UL RBC (test code = 1002) TEST NOT PERFORMED M/UL HEMOGLOBIN (test code = TEST NOT PERFORMED 1003) G/DL HEMATOCRIT (test code = TEST NOT PERFORMED % 1004) MCV (test code = 1005) TEST NOT PERFORMED fL MCH (test code = 1006) TEST NOT PERFORMED PG MCHC (test code = 1007) TEST NOT PERFORMED G/DL RDW (test code = 1038) TEST NOT PERFORMED % NEUTROPHILS (test code = TEST NOT PERFORMED % 1008) BANDS (test code = 1009) TEST NOT PERFORMED % LYMPHOCYTES (test code = TEST NOT PERFORMED % 1010) MONOCYTES (test code = TEST NOT PERFORMED % 1011) EOSINOPHILS (test code = TEST NOT PERFORMED % 1012) BASOPHILS (test code = TEST NOT PERFORMED % 1013) IMMATURE GRANULOCYTES TEST NOT PERFORMED % (test code = 1036) METAMYELOCYTES (test code TEST NOT PERFORMED % = 1061) MYELOCYTES (test code = TEST NOT PERFORMED % 1062) PROMYELOCYTES (test code TEST NOT PERFORMED % = 1063) BLASTS (test code = 1064) TEST NOT PERFORMED % NUCLEATED RBCS (test code TEST NOT PERFORMED = 1065) /100WBC'S PLATELET COUNT (test code TEST NOT PERFORMED = 1015) K/UL ABSOLUTE NEUTROPHILS TEST NOT PERFORMED (test code = 1066) K/UL ABSOLUTE LYMPHOCYTES TEST NOT PERFORMED (test code = 1067) K/UL ABSOLUTE MONOCYTES (test TEST NOT PERFORMED code = 1068) K/UL ABSOLUTE EOSINOPHILS TEST NOT PERFORMED (test code = 1040) K/UL ABSOLUTE BASOPHILS (test TEST NOT PERFORMED code = 1069) K/UL ABS IMMATURE GRANULOCYTES TEST NOT PERFORMED (test code = 1020) K/UL ABS NUCLEATED RBCS (test TEST NOT PERFORMED code = 56887) K/UL COMMENTS (test code = TEST NOT PERFORMED 1016) CBC W/AUTO [id number] 00:00:00 Test Item Value Reference Range Interpretation Comments WBC (test code = 1001) TEST NOT PERFORMED K/UL RBC (test code = 1002) TEST NOT PERFORMED M/UL HEMOGLOBIN (test code = TEST NOT PERFORMED 1003) G/DL HEMATOCRIT (test code = TEST NOT PERFORMED % 1004) MCV (test code = 1005) TEST NOT PERFORMED fL MCH (test code = 1006) TEST NOT PERFORMED PG MCHC (test code = 1007) TEST NOT PERFORMED G/DL RDW (test code = 1038) TEST NOT PERFORMED % NEUTROPHILS (test code = TEST NOT PERFORMED % 1008) BANDS (test code = 1009) TEST NOT PERFORMED % LYMPHOCYTES (test code = TEST NOT PERFORMED % 1010) MONOCYTES (test code = TEST NOT PERFORMED % 1011) EOSINOPHILS (test code = TEST NOT PERFORMED % 1012) BASOPHILS (test code = TEST NOT PERFORMED % 1013) IMMATURE GRANULOCYTES TEST NOT PERFORMED % (test code = 1036) METAMYELOCYTES (test code TEST NOT PERFORMED % = 1061) MYELOCYTES (test code = TEST NOT PERFORMED % 1062) PROMYELOCYTES (test code TEST NOT PERFORMED % = 1063) BLASTS (test code = 1064) TEST NOT PERFORMED % NUCLEATED RBCS (test code TEST NOT PERFORMED = 1065) /100WBC'S PLATELET COUNT (test code TEST NOT PERFORMED = 1015) K/UL ABSOLUTE NEUTROPHILS TEST NOT PERFORMED (test code = 1066) K/UL ABSOLUTE LYMPHOCYTES TEST NOT PERFORMED (test code = 1067) K/UL ABSOLUTE MONOCYTES (test TEST NOT PERFORMED code = 1068) K/UL ABSOLUTE EOSINOPHILS TEST NOT PERFORMED (test code = 1040) K/UL ABSOLUTE BASOPHILS (test TEST NOT PERFORMED code = 1069) K/UL ABS IMMATURE GRANULOCYTES TEST NOT PERFORMED (test code = 1020) K/UL ABS NUCLEATED RBCS (test TEST NOT PERFORMED code = 64487) K/UL COMMENTS (test code = TEST NOT PERFORMED 1016) COMPREHENSIVE METABOLIC [id number] 04:59:13 Test Item Value Reference Range Interpretation Comments GLUCOSE (test code = 99 MG/DL 70-99 2217) BUN (test code = 14 MG/DL 6-20 2207) CREATININE (test 0.78 MG/DL 0.60-1.30 code = 2213) eGFR (2020 CKD-EPI) 100 >60 (test code = 36194) ML/MIN/1.73 CALC BUN/CREAT (test 18 RATIO 6-28 code = 2235) SODIUM (test code = 146 MEQ/L 232-718 8405) POTASSIUM (test code 4.9 MEQ/L 3.5-5.4 = 2227) CHLORIDE (test code 108 MEQ/L 95-107 H = 2214) CARBON DIOXIDE (test 29 MEQ/L 19-31 code = 220) CALCIUM (test code = 9.9 MG/DL 8.5-10.5 2208) PROTEIN, TOTAL (test 8.3 G/DL 6.1-8.3 code = 2228) ALBUMIN (test code = 4.4 G/DL 3.5-5.2 2200) CALC GLOBULIN (test 3.9 G/DL 1.9-3.7 H code = 224) CALC A/G RATIO (test 1.1 RATIO 1.0-2.6 code = 223) BILIRUBIN, TOTAL 0.6 MG/DL See_Comment [Automated message] (test code = 2206) The syste m which generated this result transmitted ref erence range: <=1.2. T he reference range was not used to int erpret this result as normal/abnormal . ALKALINE PHOSPHATASE 77 U/L 40-112 (test code = 2203) AST (test code = 29 U/L 9-40 2217) ALT (test code = 26 U/L 5-40 UNLESS OTH ERWISE 2218) INDICATED, ALL TESTING PERFORM [facility] [address] [place] [address] [facility] DIRECTOR: Devon REYIA NUMBER [id number] CAP ACCREDITATION N O. [id number] COMPREHENSIVE METABOLIC [id number] 00:00:00 Test Item Value Reference Range Interpretation Comments GLUCOSE (test code = 2216) 99 MG/DL BUN (test code = 2207) 14 MG/DL CREATININE (test code = 2213) 0.78 MG/DL eGFR (2020 CKD-EPI) (test 100 ML/MIN/1.73 code = 43637) CALC BUN/CREAT (test code = 18 RATIO 2235) SODIUM (test code = 2231) 146 MEQ/L POTASSIUM (test code = 2228) 4.9 MEQ/L CHLORIDE (test code = 2215) 108 MEQ/L CARBON DIOXIDE (test code = 29 MEQ/L 2206) CALCIUM (test code = 2209) 9.9 MG/DL PROTEIN, TOTAL (test code = 8.3 G/DL 222) ALBUMIN (test code = 2201) 4.4 G/DL CALC GLOBULIN (test code = 3.9 G/DL 2240) CALC A/G RATIO (test code = 1.1 RATIO 2234) BILIRUBIN, TOTAL (test code = 0.6 MG/DL 2206) ALKALINE PHOSPHATASE (test 77 U/L code = 2204) AST (test code = 2218) 29 U/L ALT (test code = 2219) 26 U/L COMPREHENSIVE METABOLIC [id number] 00:00:00 Test Item Value Reference Range Interpretation Comments GLUCOSE (test code = 2217) 99 MG/DL BUN (test code = 2208) 14 MG/DL CREATININE (test code = 2214) 0.78 MG/DL eGFR (2020 CKD-EPI) (test 100 ML/MIN/1.73 code = 19842) CALC BUN/CREAT (test code = 18 RATIO 2235) SODIUM (test code = 2231) 146 MEQ/L POTASSIUM (test code = 2228) 4.9 MEQ/L CHLORIDE (test code = 2215) 108 MEQ/L CARBON DIOXIDE (test code = 29 MEQ/L 2205) CALCIUM (test code = 2209) 9.9 MG/DL PROTEIN, TOTAL (test code = 8.3 G/DL 2229) ALBUMIN (test code = 2201) 4.4 G/DL CALC GLOBULIN (test code = 3.9 G/DL 2240) CALC A/G RATIO (test code = 1.1 RATIO 2234) BILIRUBIN, TOTAL (test code = 0.6 MG/DL 2206) ALKALINE PHOSPHATASE (test 77 U/L code = 2204) AST (test code = 2218) 29 U/L ALT (test code = 2219) 26 U/L COMPREHENSIVE METABOLIC [id number] 00:00:00 Test Item Value Reference Range Interpretation Comments GLUCOSE (test code = 2217) 99 MG/DL BUN (test code = 2208) 14 MG/DL CREATININE (test code = 2214) 0.78 MG/DL eGFR (2020 CKD-EPI) (test 100 ML/MIN/1.73 code = 09184) CALC BUN/CREAT (test code = 18 RATIO 2235) SODIUM (test code = 2231) 146 MEQ/L POTASSIUM (test code = 2228) 4.9 MEQ/L CHLORIDE (test code = 2215) 108 MEQ/L CARBON DIOXIDE (test code = 29 MEQ/L 220) CALCIUM (test code = 2209) 9.9 MG/DL PROTEIN, TOTAL (test code = 8.3 G/DL 2228) ALBUMIN (test code = 2201) 4.4 G/DL CALC GLOBULIN (test code = 3.9 G/DL 2240) CALC A/G RATIO (test code = 1.1 RATIO 2234) BILIRUBIN, TOTAL (test code = 0.6 MG/DL 2206) ALKALINE PHOSPHATASE (test 77 U/L code = 2204) AST (test code = 2218) 29 U/L ALT (test code = 2219) 26 U/L COMPREHENSIVE METABOLIC [id number] 00:00:00 Test Item Value Reference Range Interpretation Comments GLUCOSE (test code = 2217) 99 MG/DL BUN (test code = 2208) 14 MG/DL CREATININE (test code = 2214) 0.78 MG/DL eGFR (2020 CKD-EPI) (test 100 ML/MIN/1.73 code = 17396) CALC BUN/CREAT (test code = 18 RATIO 2235) SODIUM (test code = 2231) 146 MEQ/L POTASSIUM (test code = 2228) 4.9 MEQ/L CHLORIDE (test code = 2215) 108 MEQ/L CARBON DIOXIDE (test code = 29 MEQ/L 220) CALCIUM (test code = 2209) 9.9 MG/DL PROTEIN, TOTAL (test code = 8.3 G/DL 2228) ALBUMIN (test code = 2201) 4.4 G/DL CALC GLOBULIN (test code = 3.9 G/DL 2240) CALC A/G RATIO (test code = 1.1 RATIO 2234) BILIRUBIN, TOTAL (test code = 0.6 MG/DL 2206) ALKALINE PHOSPHATASE (test 77 U/L code = 2204) AST (test code = 2218) 29 U/L ALT (test code = 2219) 26 U/L COMPREHENSIVE METABOLIC [id number] 00:00:00 Test Item Value Reference Range Interpretation Comments GLUCOSE (test code = 2217) 99 MG/DL BUN (test code = 2208) 14 MG/DL CREATININE (test code = 2214) 0.78 MG/DL eGFR (2020 CKD-EPI) (test 100 ML/MIN/1.73 code = 29802) CALC BUN/CREAT (test code = 18 RATIO 2235) SODIUM (test code = 2231) 146 MEQ/L POTASSIUM (test code = 2228) 4.9 MEQ/L CHLORIDE (test code = 2215) 108 MEQ/L CARBON DIOXIDE (test code = 29 MEQ/L 2205) CALCIUM (test code = 2209) 9.9 MG/DL PROTEIN, TOTAL (test code = 8.3 G/DL 2228) ALBUMIN (test code = 2201) 4.4 G/DL CALC GLOBULIN (test code = 3.9 G/DL 2239) CALC A/G RATIO (test code = 1.1 RATIO 2234) BILIRUBIN, TOTAL (test code = 0.6 MG/DL 2206) ALKALINE PHOSPHATASE (test 77 U/L code = 2204) AST (test code = 2218) 29 U/L ALT (test code = 2219) 26 U/L COMPREHENSIVE METABOLIC [id number] 00:00:00 Test Item Value Reference Range Interpretation Comments GLUCOSE (test code = 2217) 99 MG/DL BUN (test code = 2208) 14 MG/DL CREATININE (test code = 2214) 0.78 MG/DL eGFR (2020 CKD-EPI) (test 100 ML/MIN/1.73 code = 69527) CALC BUN/CREAT (test code = 18 RATIO 2235) SODIUM (test code = 2231) 146 MEQ/L POTASSIUM (test code = 2228) 4.9 MEQ/L CHLORIDE (test code = 2215) 108 MEQ/L CARBON DIOXIDE (test code = 29 MEQ/L 220) CALCIUM (test code = 2209) 9.9 MG/DL PROTEIN, TOTAL (test code = 8.3 G/DL 2228) ALBUMIN (test code = 2201) 4.4 G/DL CALC GLOBULIN (test code = 3.9 G/DL 2240) CALC A/G RATIO (test code = 1.1 RATIO 2234) BILIRUBIN, TOTAL (test code = 0.6 MG/DL 2207) ALKALINE PHOSPHATASE (test 77 U/L code = 2204) AST (test code = 2218) 29 U/L ALT (test code = 2219) 26 U/L COMPREHENSIVE METABOLIC [id number] 00:00:00 Test Item Value Reference Range Interpretation Comments GLUCOSE (test code = 2217) 99 MG/DL BUN (test code = 2208) 14 MG/DL CREATININE (test code = 2214) 0.78 MG/DL eGFR (2020 CKD-EPI) (test 100 ML/MIN/1.73 code = 62514) CALC BUN/CREAT (test code = 18 RATIO 2235) SODIUM (test code = 2231) 146 MEQ/L POTASSIUM (test code = 2228) 4.9 MEQ/L CHLORIDE (test code = 2215) 108 MEQ/L CARBON DIOXIDE (test code = 29 MEQ/L 2205) CALCIUM (test code = 2209) 9.9 MG/DL PROTEIN, TOTAL (test code = 8.3 G/DL 2228) ALBUMIN (test code = 2201) 4.4 G/DL CALC GLOBULIN (test code = 3.9 G/DL 2240) CALC A/G RATIO (test code = 1.1 RATIO 2234) BILIRUBIN, TOTAL (test code = 0.6 MG/DL 2207) ALKALINE PHOSPHATASE (test 77 U/L code = 2204) AST (test code = 2218) 29 U/L ALT (test code = 2219) 26 U/L COMPREHENSIVE METABOLIC [id number] 00:00:00 Test Item Value Reference Range Interpretation Comments GLUCOSE (test code = 2217) 99 MG/DL BUN (test code = 2208) 14 MG/DL CREATININE (test code = 2214) 0.78 MG/DL eGFR (2020 CKD-EPI) (test 100 ML/MIN/1.73 code = 54991) CALC BUN/CREAT (test code = 18 RATIO 2235) SODIUM (test code = 2231) 146 MEQ/L POTASSIUM (test code = 2228) 4.9 MEQ/L CHLORIDE (test code = 2215) 108 MEQ/L CARBON DIOXIDE (test code = 29 MEQ/L 2205) CALCIUM (test code = 2209) 9.9 MG/DL PROTEIN, TOTAL (test code = 8.3 G/DL 222) ALBUMIN (test code = 2201) 4.4 G/DL CALC GLOBULIN (test code = 3.9 G/DL 2240) CALC A/G RATIO (test code = 1.1 RATIO 2234) BILIRUBIN, TOTAL (test code = 0.6 MG/DL 2206) ALKALINE PHOSPHATASE (test 77 U/L code = 2204) AST (test code = 2218) 29 U/L ALT (test code = 2219) 26 U/L COMPREHENSIVE METABOLIC [id number] 00:00:00 Test Item Value Reference Range Interpretation Comments GLUCOSE (test code = 2217) 99 MG/DL BUN (test code = 2208) 14 MG/DL CREATININE (test code = 2214) 0.78 MG/DL eGFR (2020 CKD-EPI) (test 100 ML/MIN/1.73 code = 82003) CALC BUN/CREAT (test code = 18 RATIO 2235) SODIUM (test code = 2231) 146 MEQ/L POTASSIUM (test code = 2228) 4.9 MEQ/L CHLORIDE (test code = 2215) 108 MEQ/L CARBON DIOXIDE (test code = 29 MEQ/L 2205) CALCIUM (test code = 2209) 9.9 MG/DL PROTEIN, TOTAL (test code = 8.3 G/DL 2228) ALBUMIN (test code = 2201) 4.4 G/DL CALC GLOBULIN (test code = 3.9 G/DL 2240) CALC A/G RATIO (test code = 1.1 RATIO 2234) BILIRUBIN, TOTAL (test code = 0.6 MG/DL 2206) ALKALINE PHOSPHATASE (test 77 U/L code = 2204) AST (test code = 2218) 29 U/L ALT (test code = 2219) 26 U/L COMPREHENSIVE METABOLIC [id number] 00:00:00 Test Item Value Reference Range Interpretation Comments GLUCOSE (test code = 2217) 99 MG/DL BUN (test code = 2208) 14 MG/DL CREATININE (test code = 2214) 0.78 MG/DL eGFR (2020 CKD-EPI) (test 100 ML/MIN/1.73 code = 40798) CALC BUN/CREAT (test code = 18 RATIO 2235) SODIUM (test code = 2231) 146 MEQ/L POTASSIUM (test code = 2228) 4.9 MEQ/L CHLORIDE (test code = 2215) 108 MEQ/L CARBON DIOXIDE (test code = 29 MEQ/L 2205) CALCIUM (test code = 2209) 9.9 MG/DL PROTEIN, TOTAL (test code = 8.3 G/DL 2228) ALBUMIN (test code = 2201) 4.4 G/DL CALC GLOBULIN (test code = 3.9 G/DL 2239) CALC A/G RATIO (test code = 1.1 RATIO 2233) BILIRUBIN, TOTAL (test code = 0.6 MG/DL 2206) ALKALINE PHOSPHATASE (test 77 U/L code = 2204) AST (test code = 2218) 29 U/L ALT (test code = 2219) 26 U/L POCT [id number] 21:38:00 Test Item Value Reference Range Interpretation Comments POCT PREG (test code = 1605) negative On board controls acceptable with present C Line (test code = 3574) POCT PREG LOT # (test code = 3575) [id number] POCT PREG TEST DATE (test 03/15/22 code = 3576) Lab Interpretation (test code = Normal 39135-4) [facility] RIS[facility] 2020-02-08 00:00:00 Test Item Value Reference Range Interpretation Comments SARS-CoV-2 INTERPRETATION Negative (test code = 41489) SOURCE (test code = 66742) NASOPHARYNGEAL_SWAB _IN_VTM__UTM SARS-CoV-2 (COVID-19) by RT-PCR (HIGH RISK)2020-02-08 00:00:00 Test Item Value Reference Range Interpretation Comments SARS-CoV-2 INTERPRETATION Negative (test code = 68628) SOURCE (test code = 31189) NASOPHARYNGEAL_SWAB _IN_VTM__UTM SARS-CoV-2 (COVID-19) by RT-PCR (HIGH RISK)2020-02-08 00:00:00 Test Item Value Reference Range Interpretation Comments SARS-CoV-2 INTERPRETATION Negative (test code = 06622) SOURCE (test code = 52427) NASOPHARYNGEAL_SWAB _IN_VTM__UTM SARS-CoV-2 (COVID-19) by RT-PCR (HIGH RISK)2020-02-08 00:00:00 Test Item Value Reference Range Interpretation Comments SARS-CoV-2 INTERPRETATION Negative (test code = 23350) SOURCE (test code = 89314) NASOPHARYNGEAL_SWAB _IN_VTM__UTM SARS-CoV-2 (COVID-19) by RT-PCR (HIGH RISK)2020-02-08 00:00:00 Test Item Value Reference Range Interpretation Comments SARS-CoV-2 INTERPRETATION Negative (test code = 50625) SOURCE (test code = 72691) NASOPHARYNGEAL_SWAB _IN_VTM__UTM SARS-CoV-2 (COVID-19) by RT-PCR (HIGH RISK)2020-02-08 00:00:00 Test Item Value Reference Range Interpretation Comments SARS-CoV-2 INTERPRETATION Negative (test code = 03199) SOURCE (test code = 20984) NASOPHARYNGEAL_SWAB _IN_VTM__UTM QUANTIFERON TB GOLD PLUS [ADDED]2019-10-14 00:00:00 Test Item Value Reference Range Interpretation Comments QUANTIFERON TB GOLD PLUS (test NEGATIVE code = 33480) TB1-NIL (test code = 67331) 0.00 IU/ML TB2-NIL (test code = 31763) -0.01 IU/ML MITOGEN-NIL (test code = 87639) 7.87 IU/ML NIL (test code = 28116) 0.02 IU/ML QUANTIFERON TB GOLD PLUS [ADDED]2019-10-14 00:00:00 Test Item Value Reference Range Interpretation Comments QUANTIFERON TB GOLD PLUS (test NEGATIVE code = 21056) TB1-NIL (test code = 76648) 0.00 IU/ML TB2-NIL (test code = 91068) -0.01 IU/ML MITOGEN-NIL (test code = 89579) 7.87 IU/ML NIL (test code = 76119) 0.02 IU/ML QUANTIFERON TB GOLD PLUS [ADDED]2019-10-14 00:00:00 Test Item Value Reference Range Interpretation Comments QUANTIFERON TB GOLD PLUS (test NEGATIVE code = 19659) TB1-NIL (test code = 86630) 0.00 IU/ML TB2-NIL (test code = 78462) -0.01 IU/ML MITOGEN-NIL (test code = 57278) 7.87 IU/ML NIL (test code = 01650) 0.02 IU/ML QUANTIFERON TB GOLD PLUS [ADDED]2019-10-14 00:00:00 Test Item Value Reference Range Interpretation Comments QUANTIFERON TB GOLD PLUS (test NEGATIVE code = 53256) TB1-NIL (test code = 50677) 0.00 IU/ML TB2-NIL (test code = 03999) -0.01 IU/ML MITOGEN-NIL (test code = 54838) 7.87 IU/ML NIL (test code = 92030) 0.02 IU/ML QUANTIFERON TB GOLD PLUS [ADDED]2019-10-14 00:00:00 Test Item Value Reference Range Interpretation Comments QUANTIFERON TB GOLD PLUS (test NEGATIVE code = 52306) TB1-NIL (test code = 52648) 0.00 IU/ML TB2-NIL (test code = 98622) -0.01 IU/ML MITOGEN-NIL (test code = 18543) 7.87 IU/ML NIL (test code = 17866) 0.02 IU/ML QUANTIFERON TB GOLD PLUS [ADDED]2019-10-14 00:00:00 Test Item Value Reference Range Interpretation Comments QUANTIFERON TB GOLD PLUS (test NEGATIVE code = 77501) TB1-NIL (test code = 72132) 0.00 IU/ML TB2-NIL (test code = 36311) -0.01 IU/ML MITOGEN-NIL (test code = 51717) 7.87 IU/ML NIL (test code = 51923) 0.02 IU/ML CBC W/AUTO [id number] 00:00:00 Test Item Value Reference Range Interpretation Comments WBC (test code = 1001) 8.0 K/UL RBC (test code = 1002) 4.47 M/UL HEMOGLOBIN (test code = 1003) 13.6 G/DL HEMATOCRIT (test code = 1004) 40.9 % MCV (test code = 1005) 91.5 fL MCH (test code = 1006) 30.4 PG MCHC (test code = 1007) 33.3 G/DL RDW (test code = 1038) 12.7 % NEUTROPHILS (test code = 1008) 63.8 % LYMPHOCYTES (test code = 1010) 25.7 % MONOCYTES (test code = 1011) 7.4 % EOSINOPHILS (test code = 1012) 2.6 % BASOPHILS (test code = 1013) 0.5 % PLATELET COUNT (test code = 1015) 283 K/UL CBC W/AUTO [id number] 00:00:00 Test Item Value Reference Range Interpretation Comments WBC (test code = 1001) 8.0 K/UL RBC (test code = 1002) 4.47 M/UL HEMOGLOBIN (test code = 1003) 13.6 G/DL HEMATOCRIT (test code = 1004) 40.9 % MCV (test code = 1005) 91.5 fL MCH (test code = 1006) 30.4 PG MCHC (test code = 1007) 33.3 G/DL RDW (test code = 1038) 12.7 % NEUTROPHILS (test code = 1008) 63.8 % LYMPHOCYTES (test code = 1010) 25.7 % MONOCYTES (test code = 1011) 7.4 % EOSINOPHILS (test code = 1012) 2.6 % BASOPHILS (test code = 1013) 0.5 % PLATELET COUNT (test code = 1015) 283 K/UL COMPREHENSIVE METABOLIC [id number] 00:00:00 Test Item Value Reference Range Interpretation Comments GLUCOSE (test code = 2217) 101 MG/DL BUN (test code = 2208) 9 MG/DL CREATININE (test code = 2214) 0.59 MG/DL eGFR AMER. (test code 138 ML/MIN/1.73 = 29271) eGFR NON- AMER. (test 119 ML/MIN/1.73 code = 46284) CALC BUN/CREAT (test code = 15 RATIO 2235) SODIUM (test code = 2231) 146 MEQ/L POTASSIUM (test code = 2228) 4.2 MEQ/L CHLORIDE (test code = 2215) 106 MEQ/L CARBON DIOXIDE (test code = 28 MEQ/L 2205) CALCIUM (test code = 2209) 9.9 MG/DL PROTEIN, TOTAL (test code = 8.1 G/DL 2228) ALBUMIN (test code = 2201) 4.5 G/DL CALC GLOBULIN (test code = 3.6 G/DL 224) CALC A/G RATIO (test code = 1.3 RATIO 2234) BILIRUBIN, TOTAL (test code = 0.3 MG/DL 7) ALKALINE PHOSPHATASE (test 79 U/L code = 2204) AST (test code = 2218) 32 U/L ALT (test code = 2219) 35 U/L ACUTE HEPATITIS [id number] 00:00:00 Test Item Value Reference Range Interpretation Comments HEPATITIS A IgM (test code = NON-REACTIVE 76517) HEPATITIS B CORE IgM (test code NON-REACTIVE = 6744) HEPATITIS B SURF AG (test code = NON-REACTIVE 0889) HEPATITIS C ANTIBODY (test code NON-REACTIVE = 4675) INTERPRETATION HEPATITIS A: (NOTE) (test code = 2552) INTERPRETATION HEPATITIS B: (NOTE) (test code = 95643) INTERPRETATION HEPATITIS C: (NOTE) (test code = 76030) CBC W/AUTO [id number] 00:00:00 Test Item Value Reference Range Interpretation Comments WBC (test code = 1001) 8.0 K/UL RBC (test code = 1002) 4.47 M/UL HEMOGLOBIN (test code = 1003) 13.6 G/DL HEMATOCRIT (test code = 1004) 40.9 % MCV (test code = 1005) 91.5 fL MCH (test code = 1006) 30.4 PG MCHC (test code = 1007) 33.3 G/DL RDW (test code = 1038) 12.7 % NEUTROPHILS (test code = 1008) 63.8 % LYMPHOCYTES (test code = 1010) 25.7 % MONOCYTES (test code = 1011) 7.4 % EOSINOPHILS (test code = 1012) 2.6 % BASOPHILS (test code = 1013) 0.5 % PLATELET COUNT (test code = 1015) 283 K/UL CBC W/AUTO [id number] 00:00:00 Test Item Value Reference Range Interpretation Comments WBC (test code = 1001) 8.0 K/UL RBC (test code = 1002) 4.47 M/UL HEMOGLOBIN (test code = 1003) 13.6 G/DL HEMATOCRIT (test code = 1004) 40.9 % MCV (test code = 1005) 91.5 fL MCH (test code = 1006) 30.4 PG MCHC (test code = 1007) 33.3 G/DL RDW (test code = 1038) 12.7 % NEUTROPHILS (test code = 1008) 63.8 % LYMPHOCYTES (test code = 1010) 25.7 % MONOCYTES (test code = 1011) 7.4 % EOSINOPHILS (test code = 1012) 2.6 % BASOPHILS (test code = 1013) 0.5 % PLATELET COUNT (test code = 1015) 283 K/UL CBC W/AUTO [id number] 00:00:00 Test Item Value Reference Range Interpretation Comments WBC (test code = 1001) 8.0 K/UL RBC (test code = 1002) 4.47 M/UL HEMOGLOBIN (test code = 1003) 13.6 G/DL HEMATOCRIT (test code = 1004) 40.9 % MCV (test code = 1005) 91.5 fL MCH (test code = 1006) 30.4 PG MCHC (test code = 1007) 33.3 G/DL RDW (test code = 1038) 12.7 % NEUTROPHILS (test code = 1008) 63.8 % LYMPHOCYTES (test code = 1010) 25.7 % MONOCYTES (test code = 1011) 7.4 % EOSINOPHILS (test code = 1012) 2.6 % BASOPHILS (test code = 1013) 0.5 % PLATELET COUNT (test code = 1015) 283 K/UL CBC W/AUTO [id number] 00:00:00 Test Item Value Reference Range Interpretation Comments WBC (test code = 1001) 8.0 K/UL RBC (test code = 1002) 4.47 M/UL HEMOGLOBIN (test code = 1003) 13.6 G/DL HEMATOCRIT (test code = 1004) 40.9 % MCV (test code = 1005) 91.5 fL MCH (test code = 1006) 30.4 PG MCHC (test code = 1007) 33.3 G/DL RDW (test code = 1038) 12.7 % NEUTROPHILS (test code = 1008) 63.8 % LYMPHOCYTES (test code = 1010) 25.7 % MONOCYTES (test code = 1011) 7.4 % EOSINOPHILS (test code = 1012) 2.6 % BASOPHILS (test code = 1013) 0.5 % PLATELET COUNT (test code = 1015) 283 K/UL COMPREHENSIVE METABOLIC [id number] 00:00:00 Test Item Value Reference Range Interpretation Comments GLUCOSE (test code = 2217) 101 MG/DL BUN (test code = 2208) 9 MG/DL CREATININE (test code = 2214) 0.59 MG/DL eGFR AMER. (test code 138 ML/MIN/1.73 = 44524) eGFR NON- AMER. (test 119 ML/MIN/1.73 code = 92027) CALC BUN/CREAT (test code = 15 RATIO 2235) SODIUM (test code = 2231) 146 MEQ/L POTASSIUM (test code = 2228) 4.2 MEQ/L CHLORIDE (test code = 2215) 106 MEQ/L CARBON DIOXIDE (test code = 28 MEQ/L 220) CALCIUM (test code = 2209) 9.9 MG/DL PROTEIN, TOTAL (test code = 8.1 G/DL 2228) ALBUMIN (test code = 2201) 4.5 G/DL CALC GLOBULIN (test code = 3.6 G/DL 2240) CALC A/G RATIO (test code = 1.3 RATIO 2234) BILIRUBIN, TOTAL (test code = 0.3 MG/DL 2206) ALKALINE PHOSPHATASE (test 79 U/L code = 2204) AST (test code = 2218) 32 U/L ALT (test code = 2219) 35 U/L COMPREHENSIVE METABOLIC [id number] 00:00:00 Test Item Value Reference Range Interpretation Comments GLUCOSE (test code = 2217) 101 MG/DL BUN (test code = 2208) 9 MG/DL CREATININE (test code = 2214) 0.59 MG/DL eGFR AMER. (test code 138 ML/MIN/1.73 = 99152) eGFR NON- AMER. (test 119 ML/MIN/1.73 code = 31165) CALC BUN/CREAT (test code = 15 RATIO 2235) SODIUM (test code = 2231) 146 MEQ/L POTASSIUM (test code = 2228) 4.2 MEQ/L CHLORIDE (test code = 2215) 106 MEQ/L CARBON DIOXIDE (test code = 28 MEQ/L 2206) CALCIUM (test code = 2209) 9.9 MG/DL PROTEIN, TOTAL (test code = 8.1 G/DL 2228) ALBUMIN (test code = 2201) 4.5 G/DL CALC GLOBULIN (test code = 3.6 G/DL 2240) CALC A/G RATIO (test code = 1.3 RATIO 2234) BILIRUBIN, TOTAL (test code = 0.3 MG/DL 7) ALKALINE PHOSPHATASE (test 79 U/L code = 2204) AST (test code = 2218) 32 U/L ALT (test code = 2219) 35 U/L ACUTE HEPATITIS [id number] 00:00:00 Test Item Value Reference Range Interpretation Comments HEPATITIS A IgM (test code = NON-REACTIVE 73167) HEPATITIS B CORE IgM (test code NON-REACTIVE = 4644) HEPATITIS B SURF AG (test code = NON-REACTIVE 2739) HEPATITIS C ANTIBODY (test code NON-REACTIVE = 4675) INTERPRETATION HEPATITIS A: (NOTE) (test code = 2552) INTERPRETATION HEPATITIS B: (NOTE) (test code = 75909) INTERPRETATION HEPATITIS C: (NOTE) (test code = 39910) ACUTE HEPATITIS [id number] 00:00:00 Test Item Value Reference Range Interpretation Comments HEPATITIS A IgM (test code = NON-REACTIVE 81463) HEPATITIS B CORE IgM (test code NON-REACTIVE = 4644) HEPATITIS B SURF AG (test code = NON-REACTIVE 2739) HEPATITIS C ANTIBODY (test code NON-REACTIVE = 4675) INTERPRETATION HEPATITIS A: (NOTE) (test code = 2552) INTERPRETATION HEPATITIS B: (NOTE) (test code = 77731) INTERPRETATION HEPATITIS C: (NOTE) (test code = 75301) CBC W/AUTO [id number] 00:00:00 Test Item Value Reference Range Interpretation Comments WBC (test code = 1001) 8.0 K/UL RBC (test code = 1002) 4.47 M/UL HEMOGLOBIN (test code = 1003) 13.6 G/DL HEMATOCRIT (test code = 1004) 40.9 % MCV (test code = 1005) 91.5 fL MCH (test code = 1006) 30.4 PG MCHC (test code = 1007) 33.3 G/DL RDW (test code = 1038) 12.7 % NEUTROPHILS (test code = 1008) 63.8 % LYMPHOCYTES (test code = 1010) 25.7 % MONOCYTES (test code = 1011) 7.4 % EOSINOPHILS (test code = 1012) 2.6 % BASOPHILS (test code = 1013) 0.5 % PLATELET COUNT (test code = 1015) 283 K/UL CBC W/AUTO [id number] 00:00:00 Test Item Value Reference Range Interpretation Comments WBC (test code = 1001) 8.0 K/UL RBC (test code = 1002) 4.47 M/UL HEMOGLOBIN (test code = 1003) 13.6 G/DL HEMATOCRIT (test code = 1004) 40.9 % MCV (test code = 1005) 91.5 fL MCH (test code = 1006) 30.4 PG MCHC (test code = 1007) 33.3 G/DL RDW (test code = 1038) 12.7 % NEUTROPHILS (test code = 1008) 63.8 % LYMPHOCYTES (test code = 1010) 25.7 % MONOCYTES (test code = 1011) 7.4 % EOSINOPHILS (test code = 1012) 2.6 % BASOPHILS (test code = 1013) 0.5 % PLATELET COUNT (test code = 1015) 283 K/UL COMPREHENSIVE METABOLIC [id number] 00:00:00 Test Item Value Reference Range Interpretation Comments GLUCOSE (test code = 2217) 101 MG/DL BUN (test code = 2208) 9 MG/DL CREATININE (test code = 2214) 0.59 MG/DL eGFR AMER. (test code 138 ML/MIN/1.73 = 05699) eGFR NON- AMER. (test 119 ML/MIN/1.73 code = 02598) CALC BUN/CREAT (test code = 15 RATIO 2235) SODIUM (test code = 2231) 146 MEQ/L POTASSIUM (test code = 2228) 4.2 MEQ/L CHLORIDE (test code = 2215) 106 MEQ/L CARBON DIOXIDE (test code = 28 MEQ/L 2205) CALCIUM (test code = 2209) 9.9 MG/DL PROTEIN, TOTAL (test code = 8.1 G/DL 2228) ALBUMIN (test code = 2201) 4.5 G/DL CALC GLOBULIN (test code = 3.6 G/DL 2240) CALC A/G RATIO (test code = 1.3 RATIO 2234) BILIRUBIN, TOTAL (test code = 0.3 MG/DL 2206) ALKALINE PHOSPHATASE (test 79 U/L code = 2204) AST (test code = 2218) 32 U/L ALT (test code = 2219) 35 U/L CBC W/AUTO [id number] 00:00:00 Test Item Value Reference Range Interpretation Comments WBC (test code = 1001) 8.0 K/UL RBC (test code = 1002) 4.47 M/UL HEMOGLOBIN (test code = 1003) 13.6 G/DL HEMATOCRIT (test code = 1004) 40.9 % MCV (test code = 1005) 91.5 fL MCH (test code = 1006) 30.4 PG MCHC (test code = 1007) 33.3 G/DL RDW (test code = 1038) 12.7 % NEUTROPHILS (test code = 1008) 63.8 % LYMPHOCYTES (test code = 1010) 25.7 % MONOCYTES (test code = 1011) 7.4 % EOSINOPHILS (test code = 1012) 2.6 % BASOPHILS (test code = 1013) 0.5 % PLATELET COUNT (test code = 1015) 283 K/UL CBC W/AUTO [id number] 00:00:00 Test Item Value Reference Range Interpretation Comments WBC (test code = 1001) 8.0 K/UL RBC (test code = 1002) 4.47 M/UL HEMOGLOBIN (test code = 1003) 13.6 G/DL HEMATOCRIT (test code = 1004) 40.9 % MCV (test code = 1005) 91.5 fL MCH (test code = 1006) 30.4 PG MCHC (test code = 1007) 33.3 G/DL RDW (test code = 1038) 12.7 % NEUTROPHILS (test code = 1008) 63.8 % LYMPHOCYTES (test code = 1010) 25.7 % MONOCYTES (test code = 1011) 7.4 % EOSINOPHILS (test code = 1012) 2.6 % BASOPHILS (test code = 1013) 0.5 % PLATELET COUNT (test code = 1015) 283 K/UL COMPREHENSIVE METABOLIC [id number] 00:00:00 Test Item Value Reference Range Interpretation Comments GLUCOSE (test code = 2217) 101 MG/DL BUN (test code = 2208) 9 MG/DL CREATININE (test code = 2214) 0.59 MG/DL eGFR AMER. (test code 138 ML/MIN/1.73 = 84177) eGFR NON- AMER. (test 119 ML/MIN/1.73 code = 93917) CALC BUN/CREAT (test code = 15 RATIO 2235) SODIUM (test code = 2231) 146 MEQ/L POTASSIUM (test code = 2228) 4.2 MEQ/L CHLORIDE (test code = 2215) 106 MEQ/L CARBON DIOXIDE (test code = 28 MEQ/L 220) CALCIUM (test code = 2209) 9.9 MG/DL PROTEIN, TOTAL (test code = 8.1 G/DL 222) ALBUMIN (test code = 2201) 4.5 G/DL CALC GLOBULIN (test code = 3.6 G/DL 2240) CALC A/G RATIO (test code = 1.3 RATIO 2234) BILIRUBIN, TOTAL (test code = 0.3 MG/DL 2206) ALKALINE PHOSPHATASE (test 79 U/L code = 2204) AST (test code = 2218) 32 U/L ALT (test code = 2219) 35 U/L COMPREHENSIVE METABOLIC [id number] 00:00:00 Test Item Value Reference Range Interpretation Comments GLUCOSE (test code = 2217) 101 MG/DL BUN (test code = 2208) 9 MG/DL CREATININE (test code = 2214) 0.59 MG/DL eGFR AMER. (test code 138 ML/MIN/1.73 = 94881) eGFR NON- AMER. (test 119 ML/MIN/1.73 code = 24521) CALC BUN/CREAT (test code = 15 RATIO 5) SODIUM (test code = 2231) 146 MEQ/L POTASSIUM (test code = 2228) 4.2 MEQ/L CHLORIDE (test code = 2215) 106 MEQ/L CARBON DIOXIDE (test code = 28 MEQ/L 2205) CALCIUM (test code = 2209) 9.9 MG/DL PROTEIN, TOTAL (test code = 8.1 G/DL 9) ALBUMIN (test code = 2201) 4.5 G/DL CALC GLOBULIN (test code = 3.6 G/DL 2240) CALC A/G RATIO (test code = 1.3 RATIO 2234) BILIRUBIN, TOTAL (test code = 0.3 MG/DL 2206) ALKALINE PHOSPHATASE (test 79 U/L code = 2204) AST (test code = 2218) 32 U/L ALT (test code = 2219) 35 U/L ACUTE HEPATITIS [id number] 00:00:00 Test Item Value Reference Range Interpretation Comments HEPATITIS A IgM (test code = NON-REACTIVE 62862) HEPATITIS B CORE IgM (test code NON-REACTIVE = 4644) HEPATITIS B SURF AG (test code = NON-REACTIVE 2739) HEPATITIS C ANTIBODY (test code NON-REACTIVE = 4675) INTERPRETATION HEPATITIS A: (NOTE) (test code = 2552) INTERPRETATION HEPATITIS B: (NOTE) (test code = 60351) INTERPRETATION HEPATITIS C: (NOTE) (test code = 33854) ACUTE HEPATITIS [id number] 00:00:00 Test Item Value Reference Range Interpretation Comments HEPATITIS A IgM (test code = NON-REACTIVE 20014) HEPATITIS B CORE IgM (test code NON-REACTIVE = 4644) HEPATITIS B SURF AG (test code = NON-REACTIVE 2739) HEPATITIS C ANTIBODY (test code NON-REACTIVE = 4675) INTERPRETATION HEPATITIS A: (NOTE) (test code = 2552) INTERPRETATION HEPATITIS B: (NOTE) (test code = 94155) INTERPRETATION HEPATITIS C: (NOTE) (test code = 94230) ACUTE HEPATITIS [id number] 00:00:00 Test Item Value Reference Range Interpretation Comments HEPATITIS A IgM (test code = NON-REACTIVE 38976) HEPATITIS B CORE IgM (test code NON-REACTIVE = 4644) HEPATITIS B SURF AG (test code = NON-REACTIVE 2739) HEPATITIS C ANTIBODY (test code NON-REACTIVE = 4675) INTERPRETATION HEPATITIS A: (NOTE) (test code = 2552) INTERPRETATION HEPATITIS B: (NOTE) (test code = 18947) INTERPRETATION HEPATITIS C: (NOTE) (test code = 36246) CBC W/AUTO [id number] 00:00:00 Test Item Value Reference Range Interpretation Comments WBC (test code = 1001) 8.0 K/UL RBC (test code = 1002) 4.47 M/UL HEMOGLOBIN (test code = 1003) 13.6 G/DL HEMATOCRIT (test code = 1004) 40.9 % MCV (test code = 1005) 91.5 fL MCH (test code = 1006) 30.4 PG MCHC (test code = 1007) 33.3 G/DL RDW (test code = 1038) 12.7 % NEUTROPHILS (test code = 1008) 63.8 % LYMPHOCYTES (test code = 1010) 25.7 % MONOCYTES (test code = 1011) 7.4 % EOSINOPHILS (test code = 1012) 2.6 % BASOPHILS (test code = 1013) 0.5 % PLATELET COUNT (test code = 1015) 283 K/UL CBC W/AUTO [id number] 00:00:00 Test Item Value Reference Range Interpretation Comments WBC (test code = 1001) 8.0 K/UL RBC (test code = 1002) 4.47 M/UL HEMOGLOBIN (test code = 1003) 13.6 G/DL HEMATOCRIT (test code = 1004) 40.9 % MCV (test code = 1005) 91.5 fL MCH (test code = 1006) 30.4 PG MCHC (test code = 1007) 33.3 G/DL RDW (test code = 1038) 12.7 % NEUTROPHILS (test code = 1008) 63.8 % LYMPHOCYTES (test code = 1010) 25.7 % MONOCYTES (test code = 1011) 7.4 % EOSINOPHILS (test code = 1012) 2.6 % BASOPHILS (test code = 1013) 0.5 % PLATELET COUNT (test code = 1015) 283 K/UL CBC W/AUTO [id number] 00:00:00 Test Item Value Reference Range Interpretation Comments WBC (test code = 1001) 8.0 K/UL RBC (test code = 1002) 4.47 M/UL HEMOGLOBIN (test code = 1003) 13.6 G/DL HEMATOCRIT (test code = 1004) 40.9 % MCV (test code = 1005) 91.5 fL MCH (test code = 1006) 30.4 PG MCHC (test code = 1007) 33.3 G/DL RDW (test code = 1038) 12.7 % NEUTROPHILS (test code = 1008) 63.8 % LYMPHOCYTES (test code = 1010) 25.7 % MONOCYTES (test code = 1011) 7.4 % EOSINOPHILS (test code = 1012) 2.6 % BASOPHILS (test code = 1013) 0.5 % PLATELET COUNT (test code = 1015) 283 K/UL COMPREHENSIVE METABOLIC [id number] 00:00:00 Test Item Value Reference Range Interpretation Comments GLUCOSE (test code = 2217) 101 MG/DL BUN (test code = 2208) 9 MG/DL CREATININE (test code = 2214) 0.59 MG/DL eGFR AMER. (test code 138 ML/MIN/1.73 = 14130) eGFR NON- AMER. (test 119 ML/MIN/1.73 code = 93433) CALC BUN/CREAT (test code = 15 RATIO 2235) SODIUM (test code = 2231) 146 MEQ/L POTASSIUM (test code = 2228) 4.2 MEQ/L CHLORIDE (test code = 2215) 106 MEQ/L CARBON DIOXIDE (test code = 28 MEQ/L 2206) CALCIUM (test code = 2209) 9.9 MG/DL PROTEIN, TOTAL (test code = 8.1 G/DL 222) ALBUMIN (test code = 2201) 4.5 G/DL CALC GLOBULIN (test code = 3.6 G/DL 2240) CALC A/G RATIO (test code = 1.3 RATIO 2234) BILIRUBIN, TOTAL (test code = 0.3 MG/DL 2206) ALKALINE PHOSPHATASE (test 79 U/L code = 220) AST (test code = 2218) 32 U/L ALT (test code = 2219) 35 U/L COMPREHENSIVE METABOLIC [id number] 00:00:00 Test Item Value Reference Range Interpretation Comments GLUCOSE (test code = 2217) 101 MG/DL BUN (test code = 2208) 9 MG/DL CREATININE (test code = 2214) 0.59 MG/DL eGFR AMER. (test code 138 ML/MIN/1.73 = 92051) eGFR NON- AMER. (test 119 ML/MIN/1.73 code = 39995) CALC BUN/CREAT (test code = 15 RATIO 2235) SODIUM (test code = 2231) 146 MEQ/L POTASSIUM (test code = 2228) 4.2 MEQ/L CHLORIDE (test code = 2215) 106 MEQ/L CARBON DIOXIDE (test code = 28 MEQ/L 2206) CALCIUM (test code = 2209) 9.9 MG/DL PROTEIN, TOTAL (test code = 8.1 G/DL 222) ALBUMIN (test code = 2201) 4.5 G/DL CALC GLOBULIN (test code = 3.6 G/DL 2240) CALC A/G RATIO (test code = 1.3 RATIO 2234) BILIRUBIN, TOTAL (test code = 0.3 MG/DL 2206) ALKALINE PHOSPHATASE (test 79 U/L code = 2204) AST (test code = 2218) 32 U/L ALT (test code = 2219) 35 U/L ACUTE HEPATITIS [id number] 00:00:00 Test Item Value Reference Range Interpretation Comments HEPATITIS A IgM (test code = NON-REACTIVE 70697) HEPATITIS B CORE IgM (test code NON-REACTIVE = 4644) HEPATITIS B SURF AG (test code = NON-REACTIVE 2739) HEPATITIS C ANTIBODY (test code NON-REACTIVE = 4675) INTERPRETATION HEPATITIS A: (NOTE) (test code = 2552) INTERPRETATION HEPATITIS B: (NOTE) (test code = 18481) INTERPRETATION HEPATITIS C: (NOTE) (test code = 54661) ACUTE HEPATITIS [id number] 00:00:00 Test Item Value Reference Range Interpretation Comments HEPATITIS A IgM (test code = NON-REACTIVE 74199) HEPATITIS B CORE IgM (test code NON-REACTIVE = 4644) HEPATITIS B SURF AG (test code = NON-REACTIVE 2739) HEPATITIS C ANTIBODY (test code NON-REACTIVE = 4675) INTERPRETATION HEPATITIS A: (NOTE) (test code = 2552) INTERPRETATION HEPATITIS B: (NOTE) (test code = 26422) INTERPRETATION HEPATITIS C: (NOTE) (test code = 53513) CBC W/AUTO [id number] 00:00:00 Test Item Value Reference Range Interpretation Comments WBC (test code = 1001) 8.0 K/UL RBC (test code = 1002) 4.47 M/UL HEMOGLOBIN (test code = 1003) 13.6 G/DL HEMATOCRIT (test code = 1004) 40.9 % MCV (test code = 1005) 91.5 fL MCH (test code = 1006) 30.4 PG MCHC (test code = 1007) 33.3 G/DL RDW (test code = 1038) 12.7 % NEUTROPHILS (test code = 1008) 63.8 % LYMPHOCYTES (test code = 1010) 25.7 % MONOCYTES (test code = 1011) 7.4 % EOSINOPHILS (test code = 1012) 2.6 % BASOPHILS (test code = 1013) 0.5 % PLATELET COUNT (test code = 1015) 283 K/UL CBC W/AUTO [id number] 00:00:00 Test Item Value Reference Range Interpretation Comments WBC (test code = 1001) 8.0 K/UL RBC (test code = 1002) 4.47 M/UL HEMOGLOBIN (test code = 1003) 13.6 G/DL HEMATOCRIT (test code = 1004) 40.9 % MCV (test code = 1005) 91.5 fL MCH (test code = 1006) 30.4 PG MCHC (test code = 1007) 33.3 G/DL RDW (test code = 1038) 12.7 % NEUTROPHILS (test code = 1008) 63.8 % LYMPHOCYTES (test code = 1010) 25.7 % MONOCYTES (test code = 1011) 7.4 % EOSINOPHILS (test code = 1012) 2.6 % BASOPHILS (test code = 1013) 0.5 % PLATELET COUNT (test code = 1015) 283 K/UL CBC W/AUTO [id number] 00:00:00 Test Item Value Reference Range Interpretation Comments WBC (test code = 1001) 8.0 K/UL RBC (test code = 1002) 4.47 M/UL HEMOGLOBIN (test code = 1003) 13.6 G/DL HEMATOCRIT (test code = 1004) 40.9 % MCV (test code = 1005) 91.5 fL MCH (test code = 1006) 30.4 PG MCHC (test code = 1007) 33.3 G/DL RDW (test code = 1038) 12.7 % NEUTROPHILS (test code = 1008) 63.8 % LYMPHOCYTES (test code = 1010) 25.7 % MONOCYTES (test code = 1011) 7.4 % EOSINOPHILS (test code = 1012) 2.6 % BASOPHILS (test code = 1013) 0.5 % PLATELET COUNT (test code = 1015) 283 K/UL COMPREHENSIVE METABOLIC [id number] 00:00:00 Test Item Value Reference Range Interpretation Comments GLUCOSE (test code = 2217) 101 MG/DL BUN (test code = 2208) 9 MG/DL CREATININE (test code = 2214) 0.59 MG/DL eGFR AMER. (test code 138 ML/MIN/1.73 = 08100) eGFR NON- AMER. (test 119 ML/MIN/1.73 code = 65106) CALC BUN/CREAT (test code = 15 RATIO 2235) SODIUM (test code = 2231) 146 MEQ/L POTASSIUM (test code = 2228) 4.2 MEQ/L CHLORIDE (test code = 2215) 106 MEQ/L CARBON DIOXIDE (test code = 28 MEQ/L 2206) CALCIUM (test code = 2209) 9.9 MG/DL PROTEIN, TOTAL (test code = 8.1 G/DL 222) ALBUMIN (test code = 2201) 4.5 G/DL CALC GLOBULIN (test code = 3.6 G/DL 2240) CALC A/G RATIO (test code = 1.3 RATIO 2234) BILIRUBIN, TOTAL (test code = 0.3 MG/DL 2207) ALKALINE PHOSPHATASE (test 79 U/L code = 2204) AST (test code = 2218) 32 U/L ALT (test code = 2219) 35 U/L COMPREHENSIVE METABOLIC [id number] 00:00:00 Test Item Value Reference Range Interpretation Comments GLUCOSE (test code = 2217) 101 MG/DL BUN (test code = 2208) 9 MG/DL CREATININE (test code = 2214) 0.59 MG/DL eGFR AMER. (test code 138 ML/MIN/1.73 = 99506) eGFR NON- AMER. (test 119 ML/MIN/1.73 code = 18683) CALC BUN/CREAT (test code = 15 RATIO 2235) SODIUM (test code = 2231) 146 MEQ/L POTASSIUM (test code = 2228) 4.2 MEQ/L CHLORIDE (test code = 2215) 106 MEQ/L CARBON DIOXIDE (test code = 28 MEQ/L 2205) CALCIUM (test code = 2209) 9.9 MG/DL PROTEIN, TOTAL (test code = 8.1 G/DL 2228) ALBUMIN (test code = 2201) 4.5 G/DL CALC GLOBULIN (test code = 3.6 G/DL 2240) CALC A/G RATIO (test code = 1.3 RATIO 2234) BILIRUBIN, TOTAL (test code = 0.3 MG/DL 2207) ALKALINE PHOSPHATASE (test 79 U/L code = 2204) AST (test code = 2218) 32 U/L ALT (test code = 2219) 35 U/L ACUTE HEPATITIS [id number] 00:00:00 Test Item Value Reference Range Interpretation Comments HEPATITIS A IgM (test code = NON-REACTIVE 83909) HEPATITIS B CORE IgM (test code NON-REACTIVE = 1097) HEPATITIS B SURF AG (test code = NON-REACTIVE 0488) HEPATITIS C ANTIBODY (test code NON-REACTIVE = 4675) INTERPRETATION HEPATITIS A: (NOTE) (test code = 2552) INTERPRETATION HEPATITIS B: (NOTE) (test code = 05658) INTERPRETATION HEPATITIS C: (NOTE) (test code = 37444) ACUTE HEPATITIS [id number] 00:00:00 Test Item Value Reference Range Interpretation Comments HEPATITIS A IgM (test code = NON-REACTIVE 31254) HEPATITIS B CORE IgM (test code NON-REACTIVE = 0844) HEPATITIS B SURF AG (test code = NON-REACTIVE 3909) HEPATITIS C ANTIBODY (test code NON-REACTIVE = 4675) INTERPRETATION HEPATITIS A: (NOTE) (test code = 2552) INTERPRETATION HEPATITIS B: (NOTE) (test code = 53115) INTERPRETATION HEPATITIS C: (NOTE) (test code = 90701) COMPREHENSIVE METABOLIC [id number] 00:00:00 Test Item Value Reference Range Interpretation Comments GLUCOSE (test code = 2217) 88 MG/DL BUN (test code = 2208) 9 MG/DL CREATININE (test code = 2214) 0.71 MG/DL eGFR AMER. (test code 131 ML/MIN/1.73 = 07234) eGFR NON- AMER. (test 113 ML/MIN/1.73 code = 48718) CALC BUN/CREAT (test code = 13 RATIO 2235) SODIUM (test code = 2231) 144 MEQ/L POTASSIUM (test code = 2228) 4.3 MEQ/L CHLORIDE (test code = 2215) 103 MEQ/L CARBON DIOXIDE (test code = 27 MEQ/L 2205) CALCIUM (test code = 2209) 9.7 MG/DL PROTEIN, TOTAL (test code = 8.0 G/DL 2228) ALBUMIN (test code = 2201) 4.4 G/DL CALC GLOBULIN (test code = 3.6 G/DL 2240) CALC A/G RATIO (test code = 1.2 RATIO 4) BILIRUBIN, TOTAL (test code = 0.4 MG/DL 2206) ALKALINE PHOSPHATASE (test 79 U/L code = 2204) AST (test code = 2218) 36 U/L ALT (test code = 2219) 45 U/L LIPID [id number] 00:00:00 Test Item Value Reference Range Interpretation Comments CHOLESTEROL (test code = 2210) 166 MG/DL TRIGLYCERIDES (test code = 2232) 85 MG/DL HDL CHOLESTEROL (test code = 2220) 61 MG/DL CALC LDL CHOL (test code = 2237) 88 MG/DL RISK RATIO LDL/HDL (test code = 1.44 RATIO 2238) CBC W/AUTO [id number] 00:00:00 Test Item Value Reference Range Interpretation Comments WBC (test code = 1001) 8.1 K/UL RBC (test code = 1002) 4.55 M/UL HEMOGLOBIN (test code = 1003) 14.2 G/DL HEMATOCRIT (test code = 1004) 42.4 % MCV (test code = 1005) 93.2 fL MCH (test code = 1006) 31.2 PG MCHC (test code = 1007) 33.5 G/DL RDW (test code = 1038) 12.7 % NEUTROPHILS (test code = 1008) 66.1 % LYMPHOCYTES (test code = 1010) 25.0 % MONOCYTES (test code = 1011) 6.8 % EOSINOPHILS (test code = 1012) 1.7 % BASOPHILS (test code = 1013) 0.4 % PLATELET COUNT (test code = 1015) 278 K/UL CBC W/AUTO [id number] 00:00:00 Test Item Value Reference Range Interpretation Comments WBC (test code = 1001) 8.1 K/UL RBC (test code = 1002) 4.55 M/UL HEMOGLOBIN (test code = 1003) 14.2 G/DL HEMATOCRIT (test code = 1004) 42.4 % MCV (test code = 1005) 93.2 fL MCH (test code = 1006) 31.2 PG MCHC (test code = 1007) 33.5 G/DL RDW (test code = 1038) 12.7 % NEUTROPHILS (test code = 1008) 66.1 % LYMPHOCYTES (test code = 1010) 25.0 % MONOCYTES (test code = 1011) 6.8 % EOSINOPHILS (test code = 1012) 1.7 % BASOPHILS (test code = 1013) 0.4 % PLATELET COUNT (test code = 1015) 278 K/UL HEMOGLOBIN [id number] 00:00:00 Test Item Value Reference Range Interpretation Comments HEMOGLOBIN A1c (test code = 87405) 5.4 % HEMOGLOBIN [id number] 00:00:00 Test Item Value Reference Range Interpretation Comments HEMOGLOBIN A1c (test code = 24387) 5.4 % [id number] 00:00:00 Test Item Value Reference Range Interpretation Comments TSH (test code = 2821) 2.1 UIU/ML [id number] 00:00:00 Test Item Value Reference Range Interpretation Comments TSH (test code = 2821) 2.1 UIU/ML COMPREHENSIVE METABOLIC [id number] 00:00:00 Test Item Value Reference Range Interpretation Comments GLUCOSE (test code = 2217) 88 MG/DL BUN (test code = 2208) 9 MG/DL CREATININE (test code = 2214) 0.71 MG/DL eGFR AMER. (test code 131 ML/MIN/1.73 = 77560) eGFR NON- AMER. (test 113 ML/MIN/1.73 code = 80820) CALC BUN/CREAT (test code = 13 RATIO 2235) SODIUM (test code = 2231) 144 MEQ/L POTASSIUM (test code = 2228) 4.3 MEQ/L CHLORIDE (test code = 2215) 103 MEQ/L CARBON DIOXIDE (test code = 27 MEQ/L 2205) CALCIUM (test code = 2209) 9.7 MG/DL PROTEIN, TOTAL (test code = 8.0 G/DL 2228) ALBUMIN (test code = 2201) 4.4 G/DL CALC GLOBULIN (test code = 3.6 G/DL 0) CALC A/G RATIO (test code = 1.2 RATIO 4) BILIRUBIN, TOTAL (test code = 0.4 MG/DL 2206) ALKALINE PHOSPHATASE (test 79 U/L code = 2204) AST (test code = 2218) 36 U/L ALT (test code = 2219) 45 U/L COMPREHENSIVE METABOLIC [id number] 00:00:00 Test Item Value Reference Range Interpretation Comments GLUCOSE (test code = 2217) 88 MG/DL BUN (test code = 2208) 9 MG/DL CREATININE (test code = 2214) 0.71 MG/DL eGFR AMER. (test code 131 ML/MIN/1.73 = 30382) eGFR NON- AMER. (test 113 ML/MIN/1.73 code = 80135) CALC BUN/CREAT (test code = 13 RATIO 2235) SODIUM (test code = 2231) 144 MEQ/L POTASSIUM (test code = 2228) 4.3 MEQ/L CHLORIDE (test code = 2215) 103 MEQ/L CARBON DIOXIDE (test code = 27 MEQ/L 2205) CALCIUM (test code = 2209) 9.7 MG/DL PROTEIN, TOTAL (test code = 8.0 G/DL 2228) ALBUMIN (test code = 2201) 4.4 G/DL CALC GLOBULIN (test code = 3.6 G/DL 2240) CALC A/G RATIO (test code = 1.2 RATIO 2234) BILIRUBIN, TOTAL (test code = 0.4 MG/DL 2206) ALKALINE PHOSPHATASE (test 79 U/L code = 2204) AST (test code = 2218) 36 U/L ALT (test code = 2219) 45 U/L LIPID [id number] 00:00:00 Test Item Value Reference Range Interpretation Comments CHOLESTEROL (test code = 2210) 166 MG/DL TRIGLYCERIDES (test code = 2232) 85 MG/DL HDL CHOLESTEROL (test code = 2220) 61 MG/DL CALC LDL CHOL (test code = 2237) 88 MG/DL RISK RATIO LDL/HDL (test code = 1.44 RATIO 2238) LIPID [id number] 00:00:00 Test Item Value Reference Range Interpretation Comments CHOLESTEROL (test code = 2210) 166 MG/DL TRIGLYCERIDES (test code = 2232) 85 MG/DL HDL CHOLESTEROL (test code = 2220) 61 MG/DL CALC LDL CHOL (test code = 2237) 88 MG/DL RISK RATIO LDL/HDL (test code = 1.44 RATIO 2238) CBC W/AUTO [id number] 00:00:00 Test Item Value Reference Range Interpretation Comments WBC (test code = 1001) 8.1 K/UL RBC (test code = 1002) 4.55 M/UL HEMOGLOBIN (test code = 1003) 14.2 G/DL HEMATOCRIT (test code = 1004) 42.4 % MCV (test code = 1005) 93.2 fL MCH (test code = 1006) 31.2 PG MCHC (test code = 1007) 33.5 G/DL RDW (test code = 1038) 12.7 % NEUTROPHILS (test code = 1008) 66.1 % LYMPHOCYTES (test code = 1010) 25.0 % MONOCYTES (test code = 1011) 6.8 % EOSINOPHILS (test code = 1012) 1.7 % BASOPHILS (test code = 1013) 0.4 % PLATELET COUNT (test code = 1015) 278 K/UL CBC W/AUTO [id number] 00:00:00 Test Item Value Reference Range Interpretation Comments WBC (test code = 1001) 8.1 K/UL RBC (test code = 1002) 4.55 M/UL HEMOGLOBIN (test code = 1003) 14.2 G/DL HEMATOCRIT (test code = 1004) 42.4 % MCV (test code = 1005) 93.2 fL MCH (test code = 1006) 31.2 PG MCHC (test code = 1007) 33.5 G/DL RDW (test code = 1038) 12.7 % NEUTROPHILS (test code = 1008) 66.1 % LYMPHOCYTES (test code = 1010) 25.0 % MONOCYTES (test code = 1011) 6.8 % EOSINOPHILS (test code = 1012) 1.7 % BASOPHILS (test code = 1013) 0.4 % PLATELET COUNT (test code = 1015) 278 K/UL CBC W/AUTO [id number] 00:00:00 Test Item Value Reference Range Interpretation Comments WBC (test code = 1001) 8.1 K/UL RBC (test code = 1002) 4.55 M/UL HEMOGLOBIN (test code = 1003) 14.2 G/DL HEMATOCRIT (test code = 1004) 42.4 % MCV (test code = 1005) 93.2 fL MCH (test code = 1006) 31.2 PG MCHC (test code = 1007) 33.5 G/DL RDW (test code = 1038) 12.7 % NEUTROPHILS (test code = 1008) 66.1 % LYMPHOCYTES (test code = 1010) 25.0 % MONOCYTES (test code = 1011) 6.8 % EOSINOPHILS (test code = 1012) 1.7 % BASOPHILS (test code = 1013) 0.4 % PLATELET COUNT (test code = 1015) 278 K/UL HEMOGLOBIN [id number] 00:00:00 Test Item Value Reference Range Interpretation Comments HEMOGLOBIN A1c (test code = 09357) 5.4 % HEMOGLOBIN [id number] 00:00:00 Test Item Value Reference Range Interpretation Comments HEMOGLOBIN A1c (test code = 38154) 5.4 % HEMOGLOBIN [id number] 00:00:00 Test Item Value Reference Range Interpretation Comments HEMOGLOBIN A1c (test code = 11929) 5.4 % [id number] 00:00:00 Test Item Value Reference Range Interpretation Comments TSH (test code = 2821) 2.1 UIU/ML [id number] 00:00:00 Test Item Value Reference Range Interpretation Comments TSH (test code = 2821) 2.1 UIU/ML [id number] 00:00:00 Test Item Value Reference Range Interpretation Comments TSH (test code = 2821) 2.1 UIU/ML COMPREHENSIVE METABOLIC [id number] 00:00:00 Test Item Value Reference Range Interpretation Comments GLUCOSE (test code = 2217) 88 MG/DL BUN (test code = 2208) 9 MG/DL CREATININE (test code = 2214) 0.71 MG/DL eGFR AMER. (test code 131 ML/MIN/1.73 = 24234) eGFR NON- AMER. (test 113 ML/MIN/1.73 code = 61928) CALC BUN/CREAT (test code = 13 RATIO 2235) SODIUM (test code = 2231) 144 MEQ/L POTASSIUM (test code = 2228) 4.3 MEQ/L CHLORIDE (test code = 2215) 103 MEQ/L CARBON DIOXIDE (test code = 27 MEQ/L 2205) CALCIUM (test code = 2209) 9.7 MG/DL PROTEIN, TOTAL (test code = 8.0 G/DL 2228) ALBUMIN (test code = 2201) 4.4 G/DL CALC GLOBULIN (test code = 3.6 G/DL 2240) CALC A/G RATIO (test code = 1.2 RATIO 2234) BILIRUBIN, TOTAL (test code = 0.4 MG/DL 2206) ALKALINE PHOSPHATASE (test 79 U/L code = 2204) AST (test code = 2218) 36 U/L ALT (test code = 2219) 45 U/L COMPREHENSIVE METABOLIC [id number] 00:00:00 Test Item Value Reference Range Interpretation Comments GLUCOSE (test code = 2217) 88 MG/DL BUN (test code = 2208) 9 MG/DL CREATININE (test code = 2214) 0.71 MG/DL eGFR AMER. (test code 131 ML/MIN/1.73 = 08597) eGFR NON- AMER. (test 113 ML/MIN/1.73 code = 49683) CALC BUN/CREAT (test code = 13 RATIO 2235) SODIUM (test code = 2231) 144 MEQ/L POTASSIUM (test code = 2228) 4.3 MEQ/L CHLORIDE (test code = 2215) 103 MEQ/L CARBON DIOXIDE (test code = 27 MEQ/L 2206) CALCIUM (test code = 2209) 9.7 MG/DL PROTEIN, TOTAL (test code = 8.0 G/DL 2228) ALBUMIN (test code = 2201) 4.4 G/DL CALC GLOBULIN (test code = 3.6 G/DL 2240) CALC A/G RATIO (test code = 1.2 RATIO 2234) BILIRUBIN, TOTAL (test code = 0.4 MG/DL 2206) ALKALINE PHOSPHATASE (test 79 U/L code = 2204) AST (test code = 2218) 36 U/L ALT (test code = 2219) 45 U/L COMPREHENSIVE METABOLIC [id number] 00:00:00 Test Item Value Reference Range Interpretation Comments GLUCOSE (test code = 2217) 88 MG/DL BUN (test code = 2208) 9 MG/DL CREATININE (test code = 2214) 0.71 MG/DL eGFR AMER. (test code 131 ML/MIN/1.73 = 51631) eGFR NON- AMER. (test 113 ML/MIN/1.73 code = 11645) CALC BUN/CREAT (test code = 13 RATIO 2235) SODIUM (test code = 2231) 144 MEQ/L POTASSIUM (test code = 2228) 4.3 MEQ/L CHLORIDE (test code = 2215) 103 MEQ/L CARBON DIOXIDE (test code = 27 MEQ/L 2206) CALCIUM (test code = 2209) 9.7 MG/DL PROTEIN, TOTAL (test code = 8.0 G/DL 2228) ALBUMIN (test code = 2201) 4.4 G/DL CALC GLOBULIN (test code = 3.6 G/DL 2240) CALC A/G RATIO (test code = 1.2 RATIO 2234) BILIRUBIN, TOTAL (test code = 0.4 MG/DL 2206) ALKALINE PHOSPHATASE (test 79 U/L code = 2204) AST (test code = 2218) 36 U/L ALT (test code = 2219) 45 U/L LIPID [id number] 00:00:00 Test Item Value Reference Range Interpretation Comments CHOLESTEROL (test code = 2210) 166 MG/DL TRIGLYCERIDES (test code = 2232) 85 MG/DL HDL CHOLESTEROL (test code = 2220) 61 MG/DL CALC LDL CHOL (test code = 2237) 88 MG/DL RISK RATIO LDL/HDL (test code = 1.44 RATIO 2238) LIPID [id number] 00:00:00 Test Item Value Reference Range Interpretation Comments CHOLESTEROL (test code = 2210) 166 MG/DL TRIGLYCERIDES (test code = 2232) 85 MG/DL HDL CHOLESTEROL (test code = 2220) 61 MG/DL CALC LDL CHOL (test code = 2237) 88 MG/DL RISK RATIO LDL/HDL (test code = 1.44 RATIO 2238) LIPID [id number] 00:00:00 Test Item Value Reference Range Interpretation Comments CHOLESTEROL (test code = 2210) 166 MG/DL TRIGLYCERIDES (test code = 2232) 85 MG/DL HDL CHOLESTEROL (test code = 2220) 61 MG/DL CALC LDL CHOL (test code = 2237) 88 MG/DL RISK RATIO LDL/HDL (test code = 1.44 RATIO 2238) CBC W/AUTO [id number] 00:00:00 Test Item Value Reference Range Interpretation Comments WBC (test code = 1001) 8.1 K/UL RBC (test code = 1002) 4.55 M/UL HEMOGLOBIN (test code = 1003) 14.2 G/DL HEMATOCRIT (test code = 1004) 42.4 % MCV (test code = 1005) 93.2 fL MCH (test code = 1006) 31.2 PG MCHC (test code = 1007) 33.5 G/DL RDW (test code = 1038) 12.7 % NEUTROPHILS (test code = 1008) 66.1 % LYMPHOCYTES (test code = 1010) 25.0 % MONOCYTES (test code = 1011) 6.8 % EOSINOPHILS (test code = 1012) 1.7 % BASOPHILS (test code = 1013) 0.4 % PLATELET COUNT (test code = 1015) 278 K/UL CBC W/AUTO [id number] 00:00:00 Test Item Value Reference Range Interpretation Comments WBC (test code = 1001) 8.1 K/UL RBC (test code = 1002) 4.55 M/UL HEMOGLOBIN (test code = 1003) 14.2 G/DL HEMATOCRIT (test code = 1004) 42.4 % MCV (test code = 1005) 93.2 fL MCH (test code = 1006) 31.2 PG MCHC (test code = 1007) 33.5 G/DL RDW (test code = 1038) 12.7 % NEUTROPHILS (test code = 1008) 66.1 % LYMPHOCYTES (test code = 1010) 25.0 % MONOCYTES (test code = 1011) 6.8 % EOSINOPHILS (test code = 1012) 1.7 % BASOPHILS (test code = 1013) 0.4 % PLATELET COUNT (test code = 1015) 278 K/UL CBC W/AUTO [id number] 00:00:00 Test Item Value Reference Range Interpretation Comments WBC (test code = 1001) 8.1 K/UL RBC (test code = 1002) 4.55 M/UL HEMOGLOBIN (test code = 1003) 14.2 G/DL HEMATOCRIT (test code = 1004) 42.4 % MCV (test code = 1005) 93.2 fL MCH (test code = 1006) 31.2 PG MCHC (test code = 1007) 33.5 G/DL RDW (test code = 1038) 12.7 % NEUTROPHILS (test code = 1008) 66.1 % LYMPHOCYTES (test code = 1010) 25.0 % MONOCYTES (test code = 1011) 6.8 % EOSINOPHILS (test code = 1012) 1.7 % BASOPHILS (test code = 1013) 0.4 % PLATELET COUNT (test code = 1015) 278 K/UL HEMOGLOBIN [id number] 00:00:00 Test Item Value Reference Range Interpretation Comments HEMOGLOBIN A1c (test code = 92757) 5.4 % HEMOGLOBIN [id number] 00:00:00 Test Item Value Reference Range Interpretation Comments HEMOGLOBIN A1c (test code = 41330) 5.4 % HEMOGLOBIN [id number] 00:00:00 Test Item Value Reference Range Interpretation Comments HEMOGLOBIN A1c (test code = 98751) 5.4 % [id number] 00:00:00 Test Item Value Reference Range Interpretation Comments TSH (test code = 2821) 2.1 UIU/ML [id number] 00:00:00 Test Item Value Reference Range Interpretation Comments TSH (test code = 2821) 2.1 UIU/ML [id number] 00:00:00 Test Item Value Reference Range Interpretation Comments TSH (test code = 2821) 2.1 UIU/ML CBC W/AUTO [id number] 00:00:00 Test Item Value Reference Range Interpretation Comments WBC (test code = 1001) 8.1 K/UL RBC (test code = 1002) 4.55 M/UL HEMOGLOBIN (test code = 1003) 14.2 G/DL HEMATOCRIT (test code = 1004) 42.4 % MCV (test code = 1005) 93.2 fL MCH (test code = 1006) 31.2 PG MCHC (test code = 1007) 33.5 G/DL RDW (test code = 1038) 12.7 % NEUTROPHILS (test code = 1008) 66.1 % LYMPHOCYTES (test code = 1010) 25.0 % MONOCYTES (test code = 1011) 6.8 % EOSINOPHILS (test code = 1012) 1.7 % BASOPHILS (test code = 1013) 0.4 % PLATELET COUNT (test code = 1015) 278 K/UL CBC W/AUTO [id number] 00:00:00 Test Item Value Reference Range Interpretation Comments WBC (test code = 1001) 8.1 K/UL RBC (test code = 1002) 4.55 M/UL HEMOGLOBIN (test code = 1003) 14.2 G/DL HEMATOCRIT (test code = 1004) 42.4 % MCV (test code = 1005) 93.2 fL MCH (test code = 1006) 31.2 PG MCHC (test code = 1007) 33.5 G/DL RDW (test code = 1038) 12.7 % NEUTROPHILS (test code = 1008) 66.1 % LYMPHOCYTES (test code = 1010) 25.0 % MONOCYTES (test code = 1011) 6.8 % EOSINOPHILS (test code = 1012) 1.7 % BASOPHILS (test code = 1013) 0.4 % PLATELET COUNT (test code = 1015) 278 K/UL HEMOGLOBIN [id number] 00:00:00 Test Item Value Reference Range Interpretation Comments HEMOGLOBIN A1c (test code = 20021) 5.4 % COMPREHENSIVE METABOLIC [id number] 00:00:00 Test Item Value Reference Range Interpretation Comments GLUCOSE (test code = 2217) 88 MG/DL BUN (test code = 2208) 9 MG/DL CREATININE (test code = 2214) 0.71 MG/DL eGFR AMER. (test code 131 ML/MIN/1.73 = 18164) eGFR NON- AMER. (test 113 ML/MIN/1.73 code = 86615) CALC BUN/CREAT (test code = 13 RATIO 2235) SODIUM (test code = 2231) 144 MEQ/L POTASSIUM (test code = 2228) 4.3 MEQ/L CHLORIDE (test code = 2215) 103 MEQ/L CARBON DIOXIDE (test code = 27 MEQ/L 2205) CALCIUM (test code = 2209) 9.7 MG/DL PROTEIN, TOTAL (test code = 8.0 G/DL 2228) ALBUMIN (test code = 2201) 4.4 G/DL CALC GLOBULIN (test code = 3.6 G/DL 2239) CALC A/G RATIO (test code = 1.2 RATIO 4) BILIRUBIN, TOTAL (test code = 0.4 MG/DL 2206) ALKALINE PHOSPHATASE (test 79 U/L code = 2204) AST (test code = 2218) 36 U/L ALT (test code = 2219) 45 U/L HEMOGLOBIN [id number] 00:00:00 Test Item Value Reference Range Interpretation Comments HEMOGLOBIN A1c (test code = 50820) 5.4 % COMPREHENSIVE METABOLIC [id number] 00:00:00 Test Item Value Reference Range Interpretation Comments GLUCOSE (test code = 2217) 88 MG/DL BUN (test code = 2208) 9 MG/DL CREATININE (test code = 2214) 0.71 MG/DL eGFR AMER. (test code 131 ML/MIN/1.73 = 44590) eGFR NON- AMER. (test 113 ML/MIN/1.73 code = 82790) CALC BUN/CREAT (test code = 13 RATIO 2235) SODIUM (test code = 2231) 144 MEQ/L POTASSIUM (test code = 2228) 4.3 MEQ/L CHLORIDE (test code = 2215) 103 MEQ/L CARBON DIOXIDE (test code = 27 MEQ/L 2206) CALCIUM (test code = 2209) 9.7 MG/DL PROTEIN, TOTAL (test code = 8.0 G/DL 2228) ALBUMIN (test code = 2201) 4.4 G/DL CALC GLOBULIN (test code = 3.6 G/DL 2240) CALC A/G RATIO (test code = 1.2 RATIO 2234) BILIRUBIN, TOTAL (test code = 0.4 MG/DL 2206) ALKALINE PHOSPHATASE (test 79 U/L code = 2204) AST (test code = 2218) 36 U/L ALT (test code = 2219) 45 U/L [id number] 00:00:00 Test Item Value Reference Range Interpretation Comments TSH (test code = 2821) 2.1 UIU/ML LIPID [id number] 00:00:00 Test Item Value Reference Range Interpretation Comments CHOLESTEROL (test code = 2210) 166 MG/DL TRIGLYCERIDES (test code = 2232) 85 MG/DL HDL CHOLESTEROL (test code = 2220) 61 MG/DL CALC LDL CHOL (test code = 2237) 88 MG/DL RISK RATIO LDL/HDL (test code = 1.44 RATIO 2238) LIPID [id number] 00:00:00 Test Item Value Reference Range Interpretation Comments CHOLESTEROL (test code = 2210) 166 MG/DL TRIGLYCERIDES (test code = 2232) 85 MG/DL HDL CHOLESTEROL (test code = 2220) 61 MG/DL CALC LDL CHOL (test code = 2237) 88 MG/DL RISK RATIO LDL/HDL (test code = 1.44 RATIO 2238) [id number] 00:00:00 Test Item Value Reference Range Interpretation Comments TSH (test code = 2821) 2.1 UIU/ML CBC W/AUTO [id number] 00:00:00 Test Item Value Reference Range Interpretation Comments WBC (test code = 1001) 8.1 K/UL RBC (test code = 1002) 4.55 M/UL HEMOGLOBIN (test code = 1003) 14.2 G/DL HEMATOCRIT (test code = 1004) 42.4 % MCV (test code = 1005) 93.2 fL MCH (test code = 1006) 31.2 PG MCHC (test code = 1007) 33.5 G/DL RDW (test code = 1038) 12.7 % NEUTROPHILS (test code = 1008) 66.1 % LYMPHOCYTES (test code = 1010) 25.0 % MONOCYTES (test code = 1011) 6.8 % EOSINOPHILS (test code = 1012) 1.7 % BASOPHILS (test code = 1013) 0.4 % PLATELET COUNT (test code = 1015) 278 K/UL CBC W/AUTO [id number] 00:00:00 Test Item Value Reference Range Interpretation Comments WBC (test code = 1001) 8.1 K/UL RBC (test code = 1002) 4.55 M/UL HEMOGLOBIN (test code = 1003) 14.2 G/DL HEMATOCRIT (test code = 1004) 42.4 % MCV (test code = 1005) 93.2 fL MCH (test code = 1006) 31.2 PG MCHC (test code = 1007) 33.5 G/DL RDW (test code = 1038) 12.7 % NEUTROPHILS (test code = 1008) 66.1 % LYMPHOCYTES (test code = 1010) 25.0 % MONOCYTES (test code = 1011) 6.8 % EOSINOPHILS (test code = 1012) 1.7 % BASOPHILS (test code = 1013) 0.4 % PLATELET COUNT (test code = 1015) 278 K/UL CBC W/AUTO [id number] 00:00:00 Test Item Value Reference Range Interpretation Comments WBC (test code = 1001) 8.1 K/UL RBC (test code = 1002) 4.55 M/UL HEMOGLOBIN (test code = 1003) 14.2 G/DL HEMATOCRIT (test code = 1004) 42.4 % MCV (test code = 1005) 93.2 fL MCH (test code = 1006) 31.2 PG MCHC (test code = 1007) 33.5 G/DL RDW (test code = 1038) 12.7 % NEUTROPHILS (test code = 1008) 66.1 % LYMPHOCYTES (test code = 1010) 25.0 % MONOCYTES (test code = 1011) 6.8 % EOSINOPHILS (test code = 1012) 1.7 % BASOPHILS (test code = 1013) 0.4 % PLATELET COUNT (test code = 1015) 278 K/UL HEMOGLOBIN [id number] 00:00:00 Test Item Value Reference Range Interpretation Comments HEMOGLOBIN A1c (test code = 62520) 5.4 % HEMOGLOBIN [id number] 00:00:00 Test Item Value Reference Range Interpretation Comments HEMOGLOBIN A1c (test code = 99717) 5.4 % HEMOGLOBIN [id number] 00:00:00 Test Item Value Reference Range Interpretation Comments HEMOGLOBIN A1c (test code = 16027) 5.4 % [id number] 00:00:00 Test Item Value Reference Range Interpretation Comments TSH (test code = 2821) 2.1 UIU/ML [id number] 00:00:00 Test Item Value Reference Range Interpretation Comments TSH (test code = 2821) 2.1 UIU/ML [id number] 00:00:00 Test Item Value Reference Range Interpretation Comments TSH (test code = 2821) 2.1 UIU/ML COMPREHENSIVE METABOLIC [id number] 00:00:00 Test Item Value Reference Range Interpretation Comments GLUCOSE (test code = 2217) 88 MG/DL BUN (test code = 2208) 9 MG/DL CREATININE (test code = 2214) 0.71 MG/DL eGFR AMER. (test code 131 ML/MIN/1.73 = 99071) eGFR NON- AMER. (test 113 ML/MIN/1.73 code = 45268) CALC BUN/CREAT (test code = 13 RATIO 2235) SODIUM (test code = 2231) 144 MEQ/L POTASSIUM (test code = 2228) 4.3 MEQ/L CHLORIDE (test code = 2215) 103 MEQ/L CARBON DIOXIDE (test code = 27 MEQ/L 2205) CALCIUM (test code = 2209) 9.7 MG/DL PROTEIN, TOTAL (test code = 8.0 G/DL 2228) ALBUMIN (test code = 2201) 4.4 G/DL CALC GLOBULIN (test code = 3.6 G/DL 2240) CALC A/G RATIO (test code = 1.2 RATIO 2234) BILIRUBIN, TOTAL (test code = 0.4 MG/DL 2206) ALKALINE PHOSPHATASE (test 79 U/L code = 2204) AST (test code = 2218) 36 U/L ALT (test code = 2219) 45 U/L COMPREHENSIVE METABOLIC [id number] 00:00:00 Test Item Value Reference Range Interpretation Comments GLUCOSE (test code = 2217) 88 MG/DL BUN (test code = 2208) 9 MG/DL CREATININE (test code = 2214) 0.71 MG/DL eGFR AMER. (test code 131 ML/MIN/1.73 = 16260) eGFR NON- AMER. (test 113 ML/MIN/1.73 code = 20793) CALC BUN/CREAT (test code = 13 RATIO 2235) SODIUM (test code = 2231) 144 MEQ/L POTASSIUM (test code = 2228) 4.3 MEQ/L CHLORIDE (test code = 2215) 103 MEQ/L CARBON DIOXIDE (test code = 27 MEQ/L 2205) CALCIUM (test code = 2209) 9.7 MG/DL PROTEIN, TOTAL (test code = 8.0 G/DL 2228) ALBUMIN (test code = 220) 4.4 G/DL CALC GLOBULIN (test code = 3.6 G/DL 2239) CALC A/G RATIO (test code = 1.2 RATIO 2233) BILIRUBIN, TOTAL (test code = 0.4 MG/DL 2206) ALKALINE PHOSPHATASE (test 79 U/L code = 2204) AST (test code = 2218) 36 U/L ALT (test code = 2219) 45 U/L LIPID [id number] 00:00:00 Test Item Value Reference Range Interpretation Comments CHOLESTEROL (test code = 2210) 166 MG/DL TRIGLYCERIDES (test code = 2232) 85 MG/DL HDL CHOLESTEROL (test code = 2220) 61 MG/DL CALC LDL CHOL (test code = 2237) 88 MG/DL RISK RATIO LDL/HDL (test code = 1.44 RATIO 2238) LIPID [id number] 00:00:00 Test Item Value Reference Range Interpretation Comments CHOLESTEROL (test code = 2210) 166 MG/DL TRIGLYCERIDES (test code = 2232) 85 MG/DL HDL CHOLESTEROL (test code = 2220) 61 MG/DL CALC LDL CHOL (test code = 2237) 88 MG/DL RISK RATIO LDL/HDL (test code = 1.44 RATIO 2238) CBC W/AUTO [id number] 00:00:00 Test Item Value Reference Range Interpretation Comments WBC (test code = 1001) 8.1 K/UL RBC (test code = 1002) 4.55 M/UL HEMOGLOBIN (test code = 1003) 14.2 G/DL HEMATOCRIT (test code = 1004) 42.4 % MCV (test code = 1005) 93.2 fL MCH (test code = 1006) 31.2 PG MCHC (test code = 1007) 33.5 G/DL RDW (test code = 1038) 12.7 % NEUTROPHILS (test code = 1008) 66.1 % LYMPHOCYTES (test code = 1010) 25.0 % MONOCYTES (test code = 1011) 6.8 % EOSINOPHILS (test code = 1012) 1.7 % BASOPHILS (test code = 1013) 0.4 % PLATELET COUNT (test code = 1015) 278 K/UL CBC W/AUTO [id number] 00:00:00 Test Item Value Reference Range Interpretation Comments WBC (test code = 1001) 8.1 K/UL RBC (test code = 1002) 4.55 M/UL HEMOGLOBIN (test code = 1003) 14.2 G/DL HEMATOCRIT (test code = 1004) 42.4 % MCV (test code = 1005) 93.2 fL MCH (test code = 1006) 31.2 PG MCHC (test code = 1007) 33.5 G/DL RDW (test code = 1038) 12.7 % NEUTROPHILS (test code = 1008) 66.1 % LYMPHOCYTES (test code = 1010) 25.0 % MONOCYTES (test code = 1011) 6.8 % EOSINOPHILS (test code = 1012) 1.7 % BASOPHILS (test code = 1013) 0.4 % PLATELET COUNT (test code = 1015) 278 K/UL CBC W/AUTO [id number] 00:00:00 Test Item Value Reference Range Interpretation Comments WBC (test code = 1001) 8.1 K/UL RBC (test code = 1002) 4.55 M/UL HEMOGLOBIN (test code = 1003) 14.2 G/DL HEMATOCRIT (test code = 1004) 42.4 % MCV (test code = 1005) 93.2 fL MCH (test code = 1006) 31.2 PG MCHC (test code = 1007) 33.5 G/DL RDW (test code = 1038) 12.7 % NEUTROPHILS (test code = 1008) 66.1 % LYMPHOCYTES (test code = 1010) 25.0 % MONOCYTES (test code = 1011) 6.8 % EOSINOPHILS (test code = 1012) 1.7 % BASOPHILS (test code = 1013) 0.4 % PLATELET COUNT (test code = 1015) 278 K/UL HEMOGLOBIN [id number] 00:00:00 Test Item Value Reference Range Interpretation Comments HEMOGLOBIN A1c (test code = 37445) 5.4 % HEMOGLOBIN [id number] 00:00:00 Test Item Value Reference Range Interpretation Comments HEMOGLOBIN A1c (test code = 70454) 5.4 % HEMOGLOBIN [id number] 00:00:00 Test Item Value Reference Range Interpretation Comments HEMOGLOBIN A1c (test code = 98776) 5.4 % [id number] 00:00:00 Test Item Value Reference Range Interpretation Comments TSH (test code = 2821) 2.1 UIU/ML [id number] 00:00:00 Test Item Value Reference Range Interpretation Comments TSH (test code = 2821) 2.1 UIU/ML [id number] 00:00:00 Test Item Value Reference Range Interpretation Comments TSH (test code = 2821) 2.1 UIU/ML
[2022-03-25 15:07] LABS: Urine Blood Negative (Negative); Urine Glucose Negative (Negative); Urine Protein Negative (Negative); Urine Specific Gravity >=1.030 (1.005-1.030); Urine pH 5.5 (5.0-7.0)
[2022-03-25] MEDS ORDERED: LIDOCAINE VISCOUS 2% SOLN 15 ML UDC ONE (15:13)
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
[2022-03-25 16:31] VITALS: BP 132/90; TEMP 98; O2SAT 97
[2022-03-25 17:24] LABS: Urine Specific Gravity/Preg >1.030 (1.005-1.030)
== END 2022-03-25 15:51 | disposition home or self-care (01) ==
LOC: ER 13:23
DX: R21 Rash and other nonspecific skin eruption (principal)
CPT/HCPCS: 81003; 81025; 99281

== ENCOUNTER 2022-05-29 21:55 | Emergency (ER) | payer SELFPAY ==
[2022-05-29] MEDS ORDERED: PROMETHAZINE 25 MG TABLET ONE (22:30)
[2022-05-29] MEDS ORDERED: TRAMADOL HCL 50 MG TAB ONE (22:31)
[2022-05-29] MEDS ORDERED: IBUPROFEN 400 MG TAB ONE (22:31)
[2022-05-29 22:36] LABS: Urine Blood Negative (Negative); Urine Glucose Negative (Negative); Urine Protein Negative (Negative); Urine Specific Gravity >=1.030 (1.005-1.030); Urine pH 5.5 (5.0-7.0)
[2022-05-29 22:41] LABS: Urine Specific Gravity/Preg >1.030 (1.005-1.030)
--- OUTSIDE RECORDS SUMMARY | 2022-05-29 22:56 | XMS REPORT | Continuity of Care Document ---
:1985 Author Organization [facility] t Address [address] [place] [place] [address] Care Team Providers Name Role Phone Abhijit Mccallum [facility], [facility] Primary Care P hysician TEE HA Attending Clinician Unavailable Tee Cardoza Attending Clinician Doctor Unassigned, [place] Attending Clinician Unavailable Radha Patel DO Attending Clinician Payers Payer Name Policy Type Policy Number Effective Date Expiration Date S ource Problems Condition Condition Condition Status Onset Resolution Last Treating Co mments Source Name Details Category Date Date Treatment Clinician Date Overweight Overweight Disease Active 2012-03 Overview : Univers 2-04 Formattin ity of 00:00: g of this [place] 00 note Medical might be Branch different from the original. 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 [...] Active Univers ALLERGIE Class ity of S [facility] Social History Social Habit Start Date Stop Date Quantity Comments Source Exposure to Not sure University of SARS-CoV-2 [place] [facility] (event) Branch History SDOH University o f Alcohol Frequency [place] [facility] ed[facility] Branch History SDOH University o f Alcohol Std [place] [facility] Drinks Branch History SDOH University o f Alcohol Binge [place] [facility] al Branch Alcohol intake 2021-06-08 2021-06-08 Current drinker Unive rsity of 00:00:00 00:00:00 of alcohol [place] [facility] (finding) Branch Tobacco use and 2012-07-01 2012-07-01 Never used Universit y of exposure 00:00:00 00:00:00 [facility] Alcohol Comment 2012-07-01 2012-07-01 1 x per month Univer sity of 00:00:00 00:00:00 [facility] Sex Ass[birth year] At [birth year] Universit y of 00:00:00 00:00:00 [facility] Smoking Status Start Date Stop Date Source Never smoker [facility] Medications Ordered Filled Start Stop Current Ordering Indication Dosage Frequency Signature Comments Components Source Medication Medication Date Date Medication? Clinician (SIG) Name Name TAKE 5 ML 3-0 No EVERY 4 TO 1-12 6 HOURS 00:00: NEEDED. 00 APPLY 3-0 No SPARINGLY 1-12 TO AFFECTED 00:00: AREA(S) 00 TWICE DAILY TAKE 5 ML 3-0 No EVERY 4 TO 1-10 6 HOURS 00:00: NEEDED. 00 TAKE 1 2021-1 No TABLET 2-17 EVERY 4 00:00: HOURS 00 NEEDED. Dose 2021- No Unknown 2-17 00:00: 00 Dose 2021-1 No Unknown 2-17 00:00: 00 Dose 2021-1 No Unknown 2-17 00:00: 00 Dose 2021-1 No Unknown 2-17 00:00: 00 Dose 2021- No Unknown 2-17 00:00: 00 Dose 2021-1 No Unknown 2-17 00:00: 00 Dose 2021- No Unknown 2-17 00:00: 00 TAKE ONE 2021-1 No (1) 2-17 TABLET(S) 00:00: BY MOUTH 00 ONCE A DAY. Dose 2022-1 No Unknown 2-17 00:00: 00 TAKE 1 2021-1 No TABLET 2-17 EVERY 4 00:00: HOURS 00 NEEDED. Dose 2-1 No Unknown 2-17 00:00: 00 Dose 2-1 No Unknown 2-17 00:00: 00 Dose 2022-1 No Unknown 2-17 00:00: 00 Dose 2022-1 No Unknown 2-17 00:00: 00 Dose 2022-1 No Unknown 2-17 00:00: 00 Dose 2022-1 No Unknown 2-17 00:00: 00 Dose 2022-1 No Unknown 2-17 00:00: 00 TAKE ONE 2021-1 No (1) 2-17 TABLET(S) 00:00: BY MOUTH 00 ONCE A DAY. Dose 2021-1 No Unknown 2-17 00:00: 00 TAKE 5 ML 2022-1 No [id number] EVERY 4 TO 0-10 6 HOURS 00:00: NEEDED. 00 TAKE 5 ML 2022-1 No EVERY 4 TO 0-10 6 HOURS 00:00: NEEDED. 00 TAKE 5 ML 2022-1 No EVERY 4 TO 0-10 6 HOURS 00:00: NEEDED. 00 TAKE 1 2-0 No 800 TABLET BY 9-05 MOUTH EVERY 00:00: 8 HOURS 00 NEEDED FOR MODERATE PAIN TAKE 1 2-0 No TABLET BY 9-05 MOUTH EVERY 00:00: 8 HOURS 00 NEEDED FOR MODERATE PAIN TAKE 1 2-0 No TABLET BY 9-05 MOUTH EVERY 00:00: 8 HOURS 00 NEEDED FOR MODERATE PAIN TAKE 1 2-0 No TABLET BY 9-05 MOUTH EVERY 00:00: 8 HOURS 00 NEEDED FOR MODERATE PAIN TAKE 1 2-0 No TABLET BY 9-05 MOUTH EVERY 00:00: 8 HOURS 00 NEEDED FOR MODERATE PAIN TAKE 1 2-0 No TABLET BY 9-05 MOUTH EVERY 00:00: 8 HOURS 00 NEEDED FOR MODERATE PAIN Victoza 2-0 No 51(18 2-Tacho 0.6 6-27 mg/3 mg/0.1 mL 00:00: mL) (18 mg/3 00 mL) subcutaneou s pen injector Dose 2-0 No Unknown 6-27 00:00: 00 Victoza 2022-0 No 51(18 2-Tacho 0.6 6-27 mg/3 mg/0.1 mL 00:00: mL) (18 mg/3 00 mL) subcutaneou s pen injector Dose 2-0 No Unknown 6- 00:00: 00 Victoza 2-0 No 51(18 2-Tacho [...] s pen injector Dose 2-0 No Unknown 6 00:00: 00 Dose 2-0 No Unknown 09-09 00:00: 00 Dose 2-0 No Unknown 6- 00:00: 00 Dose 2-0 No Unknown 6 00:00: 00 Dose 2-0 No Unknown 09-09 00:00: 00 Dose 2-0 No Unknown 6 00:00: 00 Dose 2-0 No Unknown 6 00:00: 00 Dose 2-0 No Unknown 6- 00:00: 00 Dose 2-0 No Unknown 6- 00:00: 00 Dose 2-0 No Unknown 6- 00:00: 00 Dose 2-0 No Unknown 6- 00:00: 00 Dose 2-0 No Unknown 6- 00:00: 00 Dose 2-0 No Unknown 6- 00:00: 00 Dose 2022-0 No Unknown 6 00:00: 00 Dose 2022-0 No Unknown 09-06 00:00: 00 Dose 2022-0 No Unknown 09-06 00:00: 00 Dose 2022-0 No Unknown 09-06 00:00: 00 Dose 2022-0 No Unknown 09-06 00:00: 00 Dose 2022-0 No Unknown 09-06 00:00: 00 Dose 2022-0 No Unknown 09-06 00:00: 00 Dose 2022-0 No Unknown 09-06 00:00: 00 clobetasol 2022-0 No 1% 0.05 [...] Dose 2022-0 No Unknown 6- 00:00: 00 Dose 2022-0 No Unknown 6- 00:00: 00 Dose 2022-0 No Unknown 6- 00:00: 00 Dose 2022-0 No Unknown 6- 00:00: 00 Dose 2022-0 No Unknown 6- 00:00: 00 gabapentin 2022-0 No 1mg 100 mg 3-31 capsule 00:00: 00 Dose 2022-0 No Unknown 3- 00:00: 00 gabapentin 2022-0 No 1mg 100 mg 3-31 capsule 00:00: 00 Dose 2022-0 No Unknown 3- 00:00: 00 gabapentin 2022-0 No 1mg 100 mg 3-31 capsule 00:00: 00 Dose 2-0 No Unknown 3-31 00:00: 00 gabapentin 2022-0 No 1mg 100 mg 3-31 capsule 00:00: 00 Dose 2-0 No Unknown 3-31 00:00: 00 gabapentin 2022-0 No 1mg 100 mg 3-31 capsule 00:00: 00 Dose 2-0 No Unknown 3-31 00:00: 00 gabapentin 2022-0 No 1mg 100 mg 3-31 capsule 00:00: 00 Dose 2-0 No Unknown 3-31 00:00: 00 Dose 2-0 No Unknown 3-31 00:00: 00 Dose 2021-0 No Unknown 331 00:00: 00 Dose 2021-0 No Unknown 331 00:00: 00 Dose 2021-0 No Unknown 3-31 00:00: 00 HYDROcodone 2021-0 2021- No 1{tbl} 1 tablet, Univers -acetaminop [...] Branch 06/08/21 at 1700, DAVID ibuprofen Yes [id number] 800mg Take 1 Univers 800 mg 3-26 tablet by ity of tablet 00:00: mouth [place] 00 every 8 Medical (eight) Branch hours as needed for Pain (scale 4-6). methocarbam Yes [id number] 750mg Take 1 Univers oL 750 mg 3-26 tablet by ity o f tablet 00:00: mouth 4 [place] 00 (four) Medical times Branch daily as needed for Pain (scale 4-6). acetaminoph 0 2021- No [id number] 1{tbl} Take 1 U nivers en-codeine 3-26 04-03 tablet by ity of 300-30 mg 00:00: 04:59 mouth [place] tablet 00 :00 every 6 Medical (six) Branch hours as needed for Pain (scale 7-10) for up to 7 days. Indication s: acute pain naproxen 0 Yes [id number] 500mg Take 1 Un sasha 500 mg 7-26 tablet by ity of tablet 00:00: mouth 2 00 (two) Medical times Branch daily with meals. naproxen 0 Yes [id number] 500mg Take 1 Un sasha 500 mg 7-26 tablet by ity of tablet 00:00: mouth 2 00 (two) Medical times Branch daily with meals. naproxen 0 Yes [id number] 500mg Take 1 Un sasha 500 mg 7-26 tablet by ity of tablet 00:00: mouth 2 [place] 00 (two) Medical times Branch daily with meals. amoxicillin 2020- No [id number] 875mg Take 1 Univers 875 mg 7-26 08-06 tablet by ity of tablet 00:00: 04:59 mouth 2 [place] 00 :00 (two) Medical times Branch daily for 10 days. triamcinolo No 1% ne 1-12 acetonide 00:00: 0.5 % 00 topical ointment Prozac 10 0 No 1mg mg capsule -12 00:00: 00 Bromfed DM 0 No 10mg/5 2 mg-30 1-12 mL mg-10 mg/5 00:00: mL syrup 00 triamcinolo 0 No 1% ne 1-12 acetonide 00:00: 0.5 % 00 topical ointment Prozac 10 0 No 1mg mg capsule -12 00:00: 00 Bromfed DM 0 No 10mg/5 2 mg-30 1-12 mL mg-10 mg/5 00:00: mL syrup 00 triamcinolo No 1% ne 1-12 acetonide 00:00: 0.5 % 00 topical ointment Prozac 10 2017-0 No 1mg mg capsule 112 00:00: 00 Bromfed DM 2017-0 No 10mg/5 2 mg-30 1-12 mL mg-10 mg/5 00:00: mL syrup 00 triamcinolo 2017-0 No 1% ne 1-12 acetonide 00:00: 0.5 % 00 topical ointment Prozac 10 2017-0 No 1mg mg capsule 112 00:00: 00 Bromfed DM 2017-0 No 10mg/5 2 mg-30 1-12 mL mg-10 mg/5 00:00: mL syrup 00 triamcinolo 2017-0 No 1% ne 1-12 acetonide 00:00: 0.5 % 00 topical ointment Prozac 10 2017-0 No 1mg mg capsule 12 00:00: 00 Bromfed DM 2017-0 No 10mg/5 2 mg-30 1-12 mL mg-10 mg/5 00:00: mL syrup 00 triamcinolo 2017-0 No 1% ne 1-12 acetonide 00:00: 0.5 % 00 topical ointment Prozac 10 2017-0 No 1mg mg capsule 12 00:00: 00 Bromfed DM 2017-0 No 10mg/5 2 mg-30 1-12 mL mg-10 mg/5 00:00: mL syrup 00 triamcinolo 2017-0 No 1% ne 1-12 acetonide 00:00: 0.5 % 00 topical ointment triamcinolo 2017-0 No 1% ne 1-12 acetonide 00:00: 0.5 % 00 topical ointment Prozac 10 2017-0 No 1mg mg capsule 12 00:00: 00 Bromfed DM 2017-0 No 10mg/5 2 mg-30 1-12 mL mg-10 mg/5 00:00: mL syrup 00 Prozac 10 2016-0 No 1mg mg capsule 112 00:00: 00 Bromfed DM 2017-0 No 10mg/5 2 mg-30 1-12 mL mg-10 mg/5 00:00: mL syrup 00 Prozac 10 2014-1 No 1mg mg [...] No 1mg mg capsule 8-31 00:00: 00 Proza 10 2014-0 No 1mg [...] with Medical breakfast. Branch levonorgest 2012-03 Yes [id number] 1{devic 1 Device Univers rel 2-03 e} by ity of (MIRENA) 20 23:49: Intrauteri [place] mcg/24 hour 43 ne route Medi elkin (5 years) once now. Branc h IUD levonorgest 2012-03 Yes [id number] 1{devic 1 Device Univers rel 2-03 e} by ity of (MIRENA) 20 23:49: Intrauteri [place] mcg/24 hour 43 ne route Medi elkin (5 years) once now. Branc h IUD levonorgest 2012-03 Yes [id number] 1{devic 1 Device Univers rel 2-03 e} by ity of (MIRENA) 20 17:49: Intrauteri [place] mcg/24 hour 43 ne route Medi elkin (5 years) once now. Branc h IUD levonorgest 2012-03 Yes [id number] 1{devic 1 Device Univers rel 2-03 e} by ity of (MIRENA) 20 17:49: Intrauteri [place] mcg/24 hour 43 ne route Medi elkin (5 years) once now. Branc h IUD Immunizations Ordered Filled Immunization Date Status Comments Sourc e Immunization Name Name Influenza Virus 2008-05-03 Completed Universit y of Vaccine 00:00:00 [facility] Influenza Virus 2008-05-03 Completed Universit y of Vaccine 00:00:00 [facility] Influenza Virus 2008-05-03 Completed Universit y of Vaccine 00:00:00 [facility] Influenza Virus 2008-05-03 Completed Universit y of Vaccine 00:00:00 [facility] Rubella 2007-10-26 Completed University of 00:00:00 [facility] Rubella 2007-10-26 Completed University of 00:00:00 [place] [facility] Rubella 2007-10-26 Completed University of 00:00:00 [place] [facility] Rubella 2007-10-26 Completed University of 00:00:00 [place] [facility] Td 1998-03-16 Completed University of 00:00:00 [place] [facility] Td 1998-03-16 Completed University of 00:00:00 [place] [facility] Td 1998-03-16 Completed University of 00:00:00 [place] [facility] Td 1998-03-16 Completed University of 00:00:[address] [facility] Branch Vital Signs Vital Name Observation Time Observation Value Comments Source Systolic blood 2021-06-08 21:37:54 107 mm[Hg] Univer sity of pressure [facility] Diastolic blood 2021-06-08 21:37:54 74 mm[Hg] Unive rsity of pressure [facility] Heart rate 2021-06-08 21:37:54 79 /min Universi ty of [facility] Body temperature 2021-06-08 21:37:54 37.06 [place] [facility] Respiratory rate 2021-06-08 21:37:54 18 /min [facility] O[facility] saturation in 2021-06-08 21:37:54 98 /min University of Arterial blood by [facility] Pulse oximetry Branch Body weight 2021-06-08 20:33:00 90.719 kg Universi ty [facility] BMI 2021-06-08 20:33:00 34.33 kg/m2 Universi ty [facility] Systolic blood 2020-10-08 21:31:00 116 mm[Hg] Univer sity of pressure [facility] Diastolic blood 2020-10-08 21:31:00 69 mm[Hg] Unive rsity of pressure [facility] Heart rate 2020-10-08 21:31:00 59 /min Universi ty of [facility] Body temperature 2020-10-08 21:31:00 37.28 [place] Univ ersity of [facility] Respiratory rate 2020-10-08 21:31:00 16 /min Univ ersity of [facility] Body height 2020-10-08 21:31:00 162.6 cm Universi ty of [facility] Body weight 2020-10-08 21:31:00 90.719 kg Universi ty [facility] BMI 2020-10-08 21:31:00 34.33 kg/m2 [facility] Oxygen saturation in 2020-10-08 21:31:00 94 /min [facility] blood by [facility] Pulse oximetry Branch BP Systolic 2022-03-26 17:24:00 104 mm[Hg] BP Diastolic 2022-03-26 17:24:00 69 mm[Hg] Weight Measured 2022-03-26 17:24:00 247.20 pounds Height Measured 2022-03-26 17:24:00 64.00 inches Body Temperature 2022-03-26 17:24:00 97.30 degrees Heart Rate 2022-03-26 17:24:00 63.00 /min Respiratory Rate 2022-03-26 17:24:00 BP Systolic 2022-03-25 09:48:00 122 mm[Hg] BP Diastolic 2022-03-25 09:48:00 81 mm[Hg] Weight Measured 2022-03-25 09:48:00 248.40 pounds Height Measured 2022-03-25 09:48:00 64.00 inches Body Temperature 2022-03-25 09:48:00 97.40 degrees Heart Rate 2022-03-25 09:48:00 76.00 /min Respiratory Rate 2022-03-25 09:48:00 17.00 /min BP Systolic 2022-02-11 10:44:00 98 mm[Hg] BP [...] 20:26:40 Doctor Unassigned, No Un [facility] [place] DIAGNOSIS AND Name Medical Branch TREATMENT POCT TEST 2020-10-08 21:38:00 [facility]el [facility] CONSENT/REFUSAL FOR 2020-10-08 21:18:59 [facility] Branch TREATMENT NOTICE OF PRIVACY 2020-10-08 21:18:38 Doctor Unassigned, No Univ ersity of [place] PRACTICES Name Medical Branch Plan of Care Planned Activity Planned Date Details Comments Source Goal Plan of Care Note [code = 29632-9] Goal Plan of Care Note [code = 60374-7] Goal Plan of Care Note [code = 34112-2] Goal Plan of Care Note [code = 54649-5] Goal Plan of Care Note [code = 37949-2] Goal Plan of Care Note [code = 25746-2] Goal Plan of Care Note [code = 62556-8] Goal Plan of Care Note [code = 23198-8] Goal Plan of Care Note [code = 80265-5] Goal Plan of Care Note [code = 23533-5] Goal Plan of Care Note [code = 39384-9] Goal Plan of Care Note [code = 28716-8] Goal Plan of Care Note [code = 91458-2] Goal Plan of Care Note [code = 62035-5] Goal Plan of Care Note [code = 26893-1] Goal Plan of Care Note [code = 15076-5] Goal Plan of Care Note [code = 47756-1] Goal Plan of Care Note [code = 29585-3] Goal Plan of Care Note [code = 90375-9] Goal Plan of Care Note [code = 01190-0] Goal Plan of Care Note [code = 11853-6] Goal Plan of Care Note [code = 97321-9] Goal Plan of Care Note [code = 50686-7] Goal Plan of Care Note [code = 92501-5] Goal Plan of Care Note [code = 37391-8] Goal Plan of Care Note [code = 22095-0] Goal Plan of Care Note [code = 08933-1] Goal Plan of Care Note [code = 99479-2] Goal Plan of Care Note [code = 48812-4] Goal Plan of Care Note [code = 91860-2] Goal Plan of Care Note [code = 26433-4] Goal Plan of Care Note [code = 42559-6] Goal Plan of Care Note [code = 94910-7] Goal Plan of Care Note [code = 49176-8] Goal Plan of Care Note [code = 00751-1] Goal Plan of Care Note [code = 70235-4] Goal Plan of Care Note [code = 63634-9] Goal Plan of Care Note [code = 59679-2] Goal Plan of Care Note [code = 03032-0] Goal Plan of Care Note [code = 69326-4] Goal Plan of Care Note [code = 34369-1] Goal Plan of Care Note [code = 94932-5] Goal Plan of Care Note [code = 68571-9] Goal Plan of Care Note [code = 02663-9] Goal Plan of Care Note [code = 58739-4] Goal Plan of Care Note [code = 68711-0] Goal Plan of Care Note [code = 70517-0] Goal Plan of Care Note [code = 96319-5] Goal Plan of Care Note [code = 34273-0] Goal Plan of Care Note [code = 65247-1] Goal Plan of Care Note [code = 24223-3] Goal Plan of Care Note [code = 48808-4] Goal Plan of Care Note [code = 08470-5] Goal Plan of Care Note [code = 86425-6] Goal Plan of Care Note [code = 30256-6] Goal Plan of Care Note [code = 33620-6] Goal Plan of Care Note [code = 50658-9] Goal Plan of Care Note [code = 31128-0] Goal Plan of Care Note [code = 19119-1] Goal Plan of Care Note [code = 09188-5] Goal Plan of Care Note [code = 30771-8] Goal Plan of Care Note [code = 40357-6] Goal Plan of Care Note [code = 09142-8] Goal Plan of Care Note [code = 82151-4] Goal Plan of Care Note [code = 10472-9] Goal Plan of Care Note [code = 58831-7] Goal Plan of Care Note [code = 83028-0] Goal Plan of Care Note [code = 08933-0] Goal Plan of Care Note [code = 27241-1] Goal Plan of Care Note [code = 86790-1] Goal Plan of Care Note [code = 22842-2] Goal Plan of Care Note [code = 33436-9] Goal Plan of Care Note [code = 46218-5] Goal Plan of Care Note [code = 36944-7] Goal Plan of Care Note [code = 08385-8] Goal Plan of Care Note [code = 93980-1] Goal Plan of Care Note [code = 57021-4] Goal Plan of Care Note [code = 72084-8] Goal Plan of Care Note [code = 69909-5] Goal Plan of Care Note [code = 85131-0] Goal Plan of Care Note [code = 20939-0] Goal Plan of Care Note [code = 50663-0] Goal Plan of Care Note [code = 91689-9] Goal Plan of Care Note [code = 49092-9] Goal Plan of Care Note [code = 61345-2] Goal Plan of Care Note [code = 28537-8] Goal Plan of Care Note [code = 23289-0] Goal Plan of Care Note [code = 27283-0] Goal Plan of Care Note [code = 02649-1] Goal Plan of Care Note [code = 19642-3] Goal Plan of Care Note [code = 74023-2] Goal Plan of Care Note [code = 55405-7] Goal Plan of Care Note [code = 42538-8] Goal Plan of Care Note [code = 03394-6] Goal Plan of Care Note [code = 53166-3] Goal Plan of Care Note [code = 45023-7] Goal Plan of Care Note [code = 50588-3] Goal Plan of Care Note [code = 11404-1] Goal Plan of Care Note [code = 72288-1] Goal Plan of Care Note [code = 30201-8] Goal Plan of Care Note [code = 12191-3] Goal Plan of Care Note [code = 54413-5] Goal Plan of Care Note [code = 02997-4] Goal Plan of Care Note [code = 37142-9] Goal Plan of Care Note [code = 68627-9] Goal Plan of Care Note [code = 36054-3] Goal Plan of Care Note [code = 88897-9] Goal Plan of Care Note [code = 01830-1] Goal Plan of Care Note [code = 32624-4] Goal Plan of Care Note [code = 82864-6] Goal Plan of Care Note [code = 24186-4] Goal Plan of Care Note [code = 33422-1] Goal Plan of Care Note [code = 38049-9] Goal Plan of Care Note [code = 46934-3] Goal Plan of Care Note [code = 96099-5] Goal Plan of Care Note [code = 06791-5] Goal Plan of Care Note [code = 46105-7] Goal Plan of Care Note [code = 74247-1] Goal Plan of Care Note [code = 13414-7] Goal Plan of Care Note [code = 41199-2] Goal Plan of Care Note [code = 84685-3] Goal Plan of Care Note [code = 13050-4] Goal Plan of Care Note [code = 28703-0] Goal Plan of Care Note [code = 41287-2] Goal Plan of Care Note [code = 31615-5] Goal Plan of Care Note [code = 59613-4] Goal Plan of Care Note [code = 44227-9] Goal Plan of Care Note [code = 58322-7] Goal Plan of Care Note [code = 21703-4] Goal Plan of Care Note [code = 61272-4] Goal Plan of Care Note [code = 65942-5] Goal Plan of Care Note [code = 04289-0] Goal Plan of Care Note [code = 65293-8] Goal Plan of Care Note [code = 92615-2] Goal Plan of Care Note [code = 73517-4] Goal Plan of Care Note [code = 54631-5] Goal Plan of Care Note [code = 85438-9] Goal Plan of Care Note [code = 15697-9] Goal Plan of Care Note [code = 01514-7] Goal Plan of Care Note [code = 43031-9] Goal Plan of Care Note [code = 82373-8] Goal Plan of Care Note [code = 78239-7] Goal Plan of Care Note [code = 65133-7] Goal Plan of Care Note [code = 72994-8] Goal Plan of Care Note [code = 59922-9] Goal Plan of Care Note [code = 51116-8] Goal Plan of Care Note [code = 59545-5] Goal Plan of Care Note [code = 64787-3] Goal Plan of Care Note [code = 93143-6] Goal Plan of Care Note [code = 30014-8] Goal Plan of Care Note [code = 66463-7] Goal Plan of Care Note [code = 20664-3] Goal Plan of Care Note [code = 95964-6] Goal Plan of Care Note [code = 77737-4] Goal Plan of Care Note [code = 87926-2] Goal Plan of Care Note [code = 04560-1] Goal Plan of Care Note [code = 94681-8] Goal Plan of Care Note [code = 89866-9] Goal Plan of Care Note [code = 35775-0] Goal Plan of Care Note [code = 23838-4] Goal Plan of Care Note [code = 46589-8] Goal Plan of Care Note [code = 35304-7] Goal Plan of Care Note [code = 87402-9] Goal Plan of Care Note [code = 36263-6] Goal Plan of Care Note [code = 50992-5] Goal Plan of Care Note [code = 94169-9] Goal Plan of Care Note [code = 08361-6] Goal Plan of Care Note [code = 09498-8] Goal Plan of Care Note [code = 04578-6] Goal Plan of Care Note [code = 88632-7] Goal Plan of Care Note [code = 47492-8] Goal Plan of Care Note [code = 40953-1] Goal Plan of Care Note [code = 85170-7] Goal Plan of Care Note [code = 77703-3] Goal Plan of Care Note [code = 74079-4] Goal Plan of Care Note [code = 81895-3] Goal Plan of Care Note [code = 85550-2] Goal Plan of Care Note [code = 66220-3] Goal Plan of Care Note [code = 00696-8] Goal Plan of Care Note [code = 86496-1] Goal Plan of Care Note [code = 19594-4] Goal Plan of Care Note [code = 85984-2] Goal Plan of Care Note [code = 24451-4] Goal Plan of Care Note [code = 97252-0] Goal Plan of Care Note [code = 49706-9] Goal Plan of Care Note [code = 63202-4] Encounters Start End Encounter Admission Attending Care Care Encounter Source Date/Time Date/Time Type Type Clinicians Facility Department ID 2022-05-05 2022-05-05 Outpatient SFA SFA [id number] Abhijit 13:09:40 13:09:40 0220 [facility] 2022-04-30 2022-04-30 Outpatient SFA SFA [id number] Abhijit 17:01:31 17:01:31 0215 F Kunal 2022-03-28 2022-03-28 Outpatient SFA SFA [id number] Abhijit 11:08:44 11:08:44 0113 [facility] 2022-03-26 2022-03-26 Outpatient SFA SFA [id number] Abhijit 17:18:46 17:18:46 0111 [facility] 2022-03-26 2022-03-26 Outpatient [id number] 00:00:00 00:00:00 Visit 5v47-2741 m24-7311-[id number] -[id number]-z3w [id number] 2022-03-25 2022-03-25 Outpatient SFA SFA [id number] Abhijit 09:47:58 09:47:58 0110 [facility] 2022-03-25 2022-03-25 Outpatient [id number] 00:00:00 00:00:00 Visit [id number]-a -mn09-50k [id number] [id number] 2022-02-11 2022-02-11 Outpatient SFA SFA [id number] Abhijit 10:38:03 10:38:03 1129 F Kunal 2022-02-11 2022-02-11 Outpatient [id number] 00:00:00 00:00:00 Visit ey6c-4536 [id number]-3107-h -u774-1v9 [id number] [id number] a12022-01-30 2022-01-30 Outpatient SFA SFA [id number] Abhijit 08:12:07 08:12:07 1117 F Kunal 2022-01-30 2022-01-30 Outpatient [id number] 00:00:00 00:00:00 Visit 7aac-4b37 aac-4b37-b -sf1i-00z [id number] 2021-12-23 2021-12-23 Outpatient SFA SFA [id number] Abhijit 10:06:30 10:06:30 1010 F Kunal 2021-12-23 2021-12-23 Outpatient [id number] 00:00:00 00:00:00 Visit 4644-4df8 [id number] -[id number] [id number] a24vel45x aab02d 2021-11-19 2021-11-19 Outpatient qir644cd- [id number] ad c463wu-x 00:00:00 00:00:00 Visit wc33-3q4a m38-9w0r-g -q033-79n 765-75j743 8539a872v 9c950o 2021-09-25 2021-09-25 Outpatient [id number]- [id number] 1e 10951p-n 00:00:00 00:00:00 Visit y4d3-8l20 3d9-2k52-j -i062-s0q 976-d3ac12 a83vj5yl1 de8a 2021-09-23 2021-09-23 Outpatient [id number]- [id number] 38i10m-7 00:00:00 00:00:00 Visit 3572-4f85 572-4f85-9 -3m5q-32j b8e-92z3p5 2k80i480w 8j871w 2021-06-08 2021-06-08 Emergency X HA, [facility] ERT [id number] [employer] 15:37:00 16:46:00 TEE ity of [facility] 2021-06-08 2021-06-08 Emergency [facility] [id number] [id number] Univers 15:37:00 16:46:00 Tee ACOSTA 350.1.13.10 i ty of [id number] [address] 2021-06-08 2021-06-08 Orders Doctor TONI 1.2.840.114 [id number] Univers 00:00:00 00:00:00 Only Unassigned, SUSANA 350.1.13.10 ity of [facility] 4.2.7.2.686 Yeyo as [id number] [address] 2020-10-08 2020-10-[address] [facility] 1.2.840.114 [id number] Univers 16:35:00 17:12:00 Radha Acosta 350.1.13.10 ity of [place] 4.2.7.2.686 [facility] [id number] [address] 2020-10-08 2020-10-08 Emergency X [facility] ERT [id number] Univers 16:19:00 16:19:00 ity of [facility] 2020-10-08 2020-10-08 Orders Doctor TONI 1.2.840.114 [id number] Univers 00:00:00 00:00:00 Only Unassigned, SUSANA 350.1.13.10 ity of [facility] 4.2.7.2.686 Yeyo as [id number] [address] 2016-04-14 2016-04-14 Outpatient MHIE TWIN [id number] [facility] 14:30:00 14:30:00 00 junior Mora 2016-04-14 2016-04-14 [id number] [facility] 14:30:00 14:30:00 00 junior Mora Results Test Description Test Time Test Comments Results Result Comments Source HCG, QUANTITATIVE 2022-03-27 09:50:34 Test Item Value Reference Range Interpretation Comme nts HCG, QUANTITATIVE (test code <5 MIU/ML SEE BELOW EXPECTED VALUES FOR HCG = 2506) GST.AGE UNITS RANGE GST. AGE UNITS RANGE 3 WEEKS MIU/ML 6-71 10 WEEKS M IU/ML 46,509-186,9774 WEEKS MIU/ML 10-750 12 WEEKS MIU/ML 27,832-210,6125 WEEKS MIU/ML 217-7,138 14 WE EKS MIU/ML 13,950-62,5306 WEEKS MIU/ML 158-31,795 15 W EEKS MIU/ML 12,039-70,9717 WEEKS MIU/ML 3,697-163,563 1 6 WEEKS MIU/ML 9,040-56,4518 W EEKS MIU/ML 32,065-149,571 17 WEEKS MIU/ML 8,175-55,8689 W EEKS MIU/ML 63,803-151,410 18 WEEKS MIU/ML 8,099-58,176MAL ES and NON- FEMALES . . . . . . . . MIU/ML 9-1YQCU-XIMEFLX GEMA FEMALES . . . . . . . . . . . . MIU/ML <=7 UNLESS OTHERWISE INDIC ATED, ALL TESTING PERFORMED [facility], [facility]. [address] [place] [address] 4 SECURITY DISPATCHER: LUIZ STUBBS M.D. CLIA NUMBER [id number] CAP ACCREDITATION N O. [id number] VAGINAL PATHOGENS DNA [id number] 15:47:35 Test Item Value Reference Range Interpretation Comments JENNY SPECIES NEGATIVE NEGATIVE (test code = ) G. VAGINALIS POSITIVE NEGATIVE A (test code = ) T. VAGINALIS NEGATIVE NEGATIVE Note: The BD A ffirm VPIII (test code = Microbial Ident ification ) Testis a DNA pr obe test intended for us e in the detectionand id entification of Jenny spec ies, Gardnerellavagi nalis and Trichomonas vag inalis nucleic acid. U NLESS OTHERWISE INDIC ATED, ALL TESTING PERFORM ED ATCLINICAL PATHOLOGY [facility], [facility]. [address] [place] [address] LABORATOR Y DIRECTOR: LUIZ PRICE M.D. CLIA NUMBER [id number] CAP ACCREDITATION N O. [id number] VAGINAL PATHOGENS DNA [id number] 00:00:00 Test Item Value Reference Range Interpretation Comments JENNY SPECIES (test code = ) NEGATIVE G. VAGINALIS (test code = 72116) POSITIVE T. VAGINALIS (test code = ) NEGATIVE VAGINAL PATHOGENS DNA [id number] 00:00:00 Test Item Value Reference Range Interpretation Comments JENNY SPECIES (test code = ) NEGATIVE G. VAGINALIS (test code = 92613) POSITIVE T. VAGINALIS (test code = 61950) NEGATIVE CBC W/AUTO [id number] 00:00:00 Test Item Value Reference Range Interpretation [...] NUCLEATED RBCS (test code = 0.00 K/UL 80538) CBC W/AUTO [id number] 00:00:00 Test Item Value Reference Range Interpretation [...] NUCLEATED RBCS (test code = 0.00 K/UL 77049) CBC W/AUTO [id number] 00:00:00 Test Item Value Reference Range Interpretation [...] NUCLEATED RBCS (test code = 0.00 K/UL 76422) LIVER (HEPATIC) FUNCTION [id number] 00:00:00 Test Item Value Reference Range Interpretation [...] = 2219) 26 U/L LIVER (HEPATIC) FUNCTION [id number] 00:00:00 Test Item Value Reference Range Interpretation Comments PROTEIN, TOTAL (test code = 2229) 7.9 G/DL ALBUMIN (test code = 2201) 4.3 G/DL BILIRUBIN, TOTAL (test code = 2207) 0.4 MG/DL BILIRUBIN, DIRECT (test code = 0.1 MG/DL 2021) ALKALINE PHOSPHATASE (test code = 73 U/L 4) AST (test code = 2218) 23 U/L ALT (test code = 2219) 26 U/L BASIC METABOLIC [id number] 00:00:00 Test Item Value Reference Range Interpretation Comments GLUCOSE (test code = 2217) 103 MG/DL BUN (test code = 2208) 14 MG/DL CREATININE (test code = 2214) 0.68 MG/DL eGFR (2020 CKD-EPI) (test 114 ML/MIN/1.73 code = 18069) SODIUM (test code = 2231) 144 MEQ/L POTASSIUM (test code = 2228) 4.5 MEQ/L CHLORIDE (test code = 2215) 107 MEQ/L CARBON DIOXIDE (test code = 27 MEQ/L 2206) CALCIUM (test code = 2209) 10.0 MG/DL BASIC METABOLIC [id number] 00:00:00 Test Item Value Reference Range Interpretation Comments GLUCOSE (test code = 2217) 103 MG/DL BUN (test code = 2208) 14 MG/DL CREATININE (test code = 2214) 0.68 MG/DL eGFR (2020 CKD-EPI) (test 114 ML/MIN/1.73 code = 55342) SODIUM (test code = 2231) 144 MEQ/L POTASSIUM (test code = 2228) 4.5 MEQ/L CHLORIDE (test code = 2215) 107 MEQ/L CARBON DIOXIDE (test code = 27 MEQ/L 2206) CALCIUM (test code = 2209) 10.0 MG/DL CBC W/AUTO [id number] 00:00:00 Test Item Value Reference Range Interpretation [...] NUCLEATED RBCS (test code = 0.00 K/UL 64450) CBC W/AUTO [id number] 00:00:00 Test Item Value Reference Range Interpretation [...] NUCLEATED RBCS (test code = 0.00 K/UL 76715) CBC W/AUTO [id number] 00:00:00 Test Item Value Reference Range Interpretation [...] NUCLEATED RBCS (test code = 0.00 K/UL 14166) LIVER (HEPATIC) FUNCTION [id number] 00:00:00 Test Item Value Reference Range Interpretation [...] = 2219) 26 U/L LIVER (HEPATIC) FUNCTION [id number] 00:00:00 Test Item Value Reference Range Interpretation Comments PROTEIN, TOTAL (test code = 2229) 7.9 G/DL ALBUMIN (test code = 2201) 4.3 G/DL BILIRUBIN, TOTAL (test code = 2207) 0.4 MG/DL BILIRUBIN, DIRECT (test code = 0.1 MG/DL 2021) ALKALINE PHOSPHATASE (test code = 73 U/L 2203) AST (test code = 2218) 23 U/L ALT (test code = 2219) 26 U/L BASIC METABOLIC [id number] 00:00:00 Test Item Value Reference Range Interpretation Comments GLUCOSE (test code = 2217) 103 MG/DL BUN (test code = 2208) 14 MG/DL CREATININE (test code = 2214) 0.68 MG/DL eGFR (2020 CKD-EPI) (test 114 ML/MIN/1.73 code = 47767) SODIUM (test code = 2231) 144 MEQ/L POTASSIUM (test code = 2228) 4.5 MEQ/L CHLORIDE (test code = 2215) 107 MEQ/L CARBON DIOXIDE (test code = 27 MEQ/L 2206) CALCIUM (test code = 2209) 10.0 MG/DL BASIC METABOLIC [id number] 00:00:00 Test Item Value Reference Range Interpretation Comments GLUCOSE (test code = 2217) 103 MG/DL BUN (test code = 2208) 14 MG/DL CREATININE (test code = 2214) 0.68 MG/DL eGFR (2020 CKD-EPI) (test 114 ML/MIN/1.73 code = 84103) SODIUM (test code = 2231) 144 MEQ/L POTASSIUM (test code = 2228) 4.5 MEQ/L CHLORIDE (test code = 2215) 107 MEQ/L CARBON DIOXIDE (test code = 27 MEQ/L 2206) CALCIUM (test code = 2209) 10.0 MG/DL CBC W/AUTO [id number] 00:00:00 Test Item Value Reference Range Interpretation [...] NUCLEATED RBCS (test code = 0.00 K/UL 70155) CBC W/AUTO [id number] 00:00:00 Test Item Value Reference Range Interpretation [...] NUCLEATED RBCS (test code = 0.00 K/UL 83095) CBC W/AUTO [id number] 00:00:00 Test Item Value Reference Range Interpretation [...] NUCLEATED RBCS (test code = 0.00 K/UL 30398) LIVER (HEPATIC) FUNCTION [id number] 00:00:00 Test Item Value Reference Range Interpretation [...] = 2219) 26 U/L LIVER (HEPATIC) FUNCTION [id number] 00:00:00 Test Item Value Reference Range Interpretation Comments PROTEIN, TOTAL (test code = 2229) 7.9 G/DL ALBUMIN (test code = 2201) 4.3 G/DL BILIRUBIN, TOTAL (test code = 2207) 0.4 MG/DL BILIRUBIN, DIRECT (test code = 0.1 MG/DL 2021) ALKALINE PHOSPHATASE (test code = 73 U/L 4) AST (test code = 2218) 23 U/L ALT (test code = 2219) 26 U/L BASIC METABOLIC [id number] 00:00:00 Test Item Value Reference Range Interpretation Comments GLUCOSE (test code = 2217) 103 MG/DL BUN (test code = 2208) 14 MG/DL CREATININE (test code = 2214) 0.68 MG/DL eGFR (2020 CKD-EPI) (test 114 ML/MIN/1.73 code = 92933) SODIUM (test code = 2231) 144 MEQ/L POTASSIUM (test code = 2228) 4.5 MEQ/L CHLORIDE (test code = 2215) 107 MEQ/L CARBON DIOXIDE (test code = 27 MEQ/L 2206) CALCIUM (test code = 2209) 10.0 MG/DL BASIC METABOLIC [id number] 00:00:00 Test Item Value Reference Range Interpretation Comments GLUCOSE (test code = 2217) 103 MG/DL BUN (test code = 2208) 14 MG/DL CREATININE (test code = 2214) 0.68 MG/DL eGFR (2020 CKD-EPI) (test 114 ML/MIN/1.73 code = 84694) SODIUM (test code = 2231) 144 MEQ/L POTASSIUM (test code = 2228) 4.5 MEQ/L CHLORIDE (test code = 2215) 107 MEQ/L CARBON DIOXIDE (test code = 27 MEQ/L 2206) CALCIUM (test code = 2209) 10.0 MG/DL H. PYLORI (BREATH)2021-09-05 13:02:07 Test Item Value Reference Range Interpretation Comments H. PYLORI (BREATH) NEGATIVE NEGATIVE UNLESS O THERWISE (test code = 49973) INDICATE D, ALL TESTING PERFORMED [facility] [address] [place] [address] [facility] DIRECTOR: LUIZ STUBBS M.D. CLIA NUMBER [id number] CAP ACCREDITATION N O. [id number] HEMOGLOBIN [id number] 04:43:10 Test Item Value Reference Range Interpretation Comments HEMOGLOBIN A1c (test code = 80208) 5.5 % 4.2-5.6 LIPID [id number] 03:04:55 Test Item Value Reference Range Interpretation [...] MOREINFORMATION , SEE CLIENT ANNOUNCE MENT AT [email or web address] /[email or web address] RISK RATIO LDL/HDL 1.62 RATIO <3.22 UNLESS O THERWISE (test code = 2238) INDICATED , ALL TESTING PERFORMED [facility], [id number] [place] [address] DIRECTOR: LUIZ STUBBS M.D. CLIA NUMBER [id number] CAP ACCREDITATION N O. [id number] HEMOGLOBIN [id number] 00:00:00 Test Item Value Reference Range Interpretation Comments HEMOGLOBIN A1c (test code = 57498) 5.5 % HEMOGLOBIN [id number] 00:00:00 Test Item Value Reference Range Interpretation Comments HEMOGLOBIN A1c (test code = 53887) 5.5 % H. PYLORI (BREATH)2021-09-05 00:00:00 Test Item Value Reference Range Interpretation Comments H. PYLORI (BREATH) (test code = NEGATIVE 64658) LIPID [id number] 00:00:00 Test Item Value Reference Range Interpretation Comments CHOLESTEROL (test code = 2210) 138 MG/DL TRIGLYCERIDES (test code = 2232) 114 MG/DL HDL CHOLESTEROL (test code = 2220) 45 MG/DL CALC LDL CHOL (test code = 2237) 73 MG/DL RISK RATIO LDL/HDL (test code = 1.62 RATIO 2238) HEMOGLOBIN [id number] 00:00:00 Test Item Value Reference Range Interpretation Comments HEMOGLOBIN A1c (test code = 36123) 5.5 % H. PYLORI (BREATH)2021-09-05 00:00:00 Test Item Value Reference Range Interpretation Comments H. PYLORI (BREATH) (test code = NEGATIVE 00893) HEMOGLOBIN [id number] 00:00:00 Test Item Value Reference Range Interpretation Comments HEMOGLOBIN A1c (test code = 72425) 5.5 % H. PYLORI (BREATH)2021-09-05 00:00:00 Test Item Value Reference Range Interpretation Comments H. PYLORI (BREATH) (test code = NEGATIVE 33006) HEMOGLOBIN [id number] 00:00:00 Test Item Value Reference Range Interpretation Comments HEMOGLOBIN A1c (test code = 28120) 5.5 % HEMOGLOBIN [id number] 00:00:00 Test Item Value Reference Range Interpretation Comments HEMOGLOBIN A1c (test code = 54401) 5.5 % H. PYLORI (BREATH)2021-09-05 00:00:00 Test Item Value Reference Range Interpretation Comments H. PYLORI (BREATH) (test code = NEGATIVE 20458) LIPID [id number] 00:00:00 Test Item Value Reference Range Interpretation Comments CHOLESTEROL (test code = 2210) 138 MG/DL TRIGLYCERIDES (test code = 2232) 114 MG/DL HDL CHOLESTEROL (test code = 2220) 45 MG/DL CALC LDL CHOL (test code = 2237) 73 MG/DL RISK RATIO LDL/HDL (test code = 1.62 RATIO 2238) LIPID [id number] 00:00:00 Test Item Value Reference Range Interpretation Comments CHOLESTEROL (test code = 2210) 138 MG/DL TRIGLYCERIDES (test code = 2232) 114 MG/DL HDL CHOLESTEROL (test code = 2220) 45 MG/DL CALC LDL CHOL (test code = 2237) 73 MG/DL RISK RATIO LDL/HDL (test code = 1.62 RATIO 2238) HEMOGLOBIN [id number] 00:00:00 Test Item Value Reference Range Interpretation Comments HEMOGLOBIN A1c (test code = 95334) 5.5 % LIPID [id number] 00:00:00 Test Item Value Reference Range Interpretation Comments CHOLESTEROL (test code = 2210) 138 MG/DL TRIGLYCERIDES (test code = 2232) 114 MG/DL HDL CHOLESTEROL (test code = 2220) 45 MG/DL CALC LDL CHOL (test code = 2237) 73 MG/DL RISK RATIO LDL/HDL (test code = 1.62 RATIO 2238) HEMOGLOBIN [id number] 00:00:00 Test Item Value Reference Range Interpretation Comments HEMOGLOBIN A1c (test code = 88669) 5.5 % H. PYLORI (BREATH)2021-09-05 00:00:00 Test Item Value Reference Range Interpretation Comments H. PYLORI (BREATH) (test code = NEGATIVE 12299) HEMOGLOBIN [id number] 00:00:00 Test Item Value Reference Range Interpretation Comments HEMOGLOBIN A1c (test code = 28099) 5.5 % HEMOGLOBIN [id number] 00:00:00 Test Item Value Reference Range Interpretation Comments HEMOGLOBIN A1c (test code = 81821) 5.5 % H. PYLORI (BREATH)2021-09-05 00:00:00 Test Item Value Reference Range Interpretation Comments H. PYLORI (BREATH) (test code = NEGATIVE 25258) LIPID [id number] 00:00:00 Test Item Value Reference Range Interpretation Comments CHOLESTEROL (test code = 2210) 138 MG/DL TRIGLYCERIDES (test code = 2232) 114 MG/DL HDL CHOLESTEROL (test code = 2220) 45 MG/DL CALC LDL CHOL (test code = 2237) 73 MG/DL RISK RATIO LDL/HDL (test code = 1.62 RATIO 2238) LIPID [id number] 00:00:00 Test Item Value Reference Range Interpretation [...] H. PYLORI (BREATH) (test code = NEGATIVE 44990) HEMOGLOBIN [id number] 00:00:00 Test Item Value Reference Range Interpretation Comments HEMOGLOBIN A1c (test code = 06257) 5.5 % HEMOGLOBIN [id number] 00:00:00 Test Item Value Reference Range Interpretation Comments HEMOGLOBIN A1c (test code = 84017) 5.5 % H. PYLORI (BREATH)2021-09-05 00:00:00 Test Item Value Reference Range Interpretation Comments H. PYLORI (BREATH) (test code = NEGATIVE 89048) HEMOGLOBIN [id number] 00:00:00 Test Item Value Reference Range Interpretation Comments HEMOGLOBIN A1c (test code = 48487) 5.5 % LIPID [id number] 00:00:00 Test Item Value Reference Range Interpretation Comments CHOLESTEROL (test code = 2210) 138 MG/DL TRIGLYCERIDES (test code = 2232) 114 MG/DL HDL CHOLESTEROL (test code = 2220) 45 MG/DL CALC LDL CHOL (test code = 2237) 73 MG/DL RISK RATIO LDL/HDL (test code = 1.62 RATIO 2238) LIPID [id number] 00:00:00 Test Item Value Reference Range Interpretation Comments CHOLESTEROL (test code = 2210) 138 MG/DL TRIGLYCERIDES (test code = 2232) 114 MG/DL HDL CHOLESTEROL (test code = 2220) 45 MG/DL CALC LDL CHOL (test code = 2237) 73 MG/DL RISK RATIO LDL/HDL (test code = 1.62 RATIO 2238) HEMOGLOBIN [id number] 00:00:00 Test Item Value Reference Range Interpretation Comments HEMOGLOBIN A1c (test code = 94010) 5.5 % H. PYLORI (BREATH)2021-09-05 00:00:00 Test Item Value Reference Range Interpretation Comments H. PYLORI (BREATH) (test code = NEGATIVE 74554) H. PYLORI (BREATH)2021-09-05 00:00:00 Test Item Value Reference Range Interpretation Comments H. PYLORI (BREATH) (test code = NEGATIVE 97029) HEMOGLOBIN [id number] 00:00:00 Test Item Value Reference Range Interpretation Comments HEMOGLOBIN A1c (test code = 78549) 5.5 % HEMOGLOBIN [id number] 00:00:00 Test Item Value Reference Range Interpretation Comments HEMOGLOBIN A1c (test code = 47331) 5.5 % LIPID [id number] 00:00:00 Test Item Value Reference Range Interpretation Comments CHOLESTEROL (test code = 2210) 138 MG/DL TRIGLYCERIDES (test code = 2232) 114 MG/DL HDL CHOLESTEROL (test code = 2220) 45 MG/DL CALC LDL CHOL (test code = 2237) 73 MG/DL RISK RATIO LDL/HDL (test code = 1.62 RATIO 2238) LIPID [id number] 00:00:00 Test Item Value Reference Range Interpretation [...] H. PYLORI (BREATH) (test code = NEGATIVE 95020) H. PYLORI (BREATH)2021-09-05 00:00:00 Test Item Value Reference Range Interpretation Comments H. PYLORI (BREATH) (test code = NEGATIVE 54959) HEMOGLOBIN [id number] 00:00:00 Test Item Value Reference Range Interpretation Comments HEMOGLOBIN A1c (test code = 03715) 5.5 % HEMOGLOBIN [id number] 00:00:00 Test Item Value Reference Range Interpretation Comments HEMOGLOBIN A1c (test code = 25826) 5.5 % HEMOGLOBIN [id number] 00:00:00 Test Item Value Reference Range Interpretation Comments HEMOGLOBIN A1c (test code = 33335) 5.5 % LIPID [id number] 00:00:00 Test Item Value Reference Range Interpretation Comments CHOLESTEROL (test code = 2210) 138 MG/DL TRIGLYCERIDES (test code = 2232) 114 MG/DL HDL CHOLESTEROL (test code = 2220) 45 MG/DL CALC LDL CHOL (test code = 2237) 73 MG/DL RISK RATIO LDL/HDL (test code = 1.62 RATIO 2238) LIPID [id number] 00:00:00 Test Item Value Reference Range Interpretation [...] H. PYLORI (BREATH) (test code = NEGATIVE 37413) HEMOGLOBIN [id number] 00:00:00 Test Item Value Reference Range Interpretation Comments HEMOGLOBIN A1c (test code = 69198) 5.5 % HEMOGLOBIN [id number] 00:00:00 Test Item Value Reference Range Interpretation Comments HEMOGLOBIN A1c (test code = 83306) 5.5 % H. PYLORI (BREATH)2021-09-05 00:00:00 Test Item Value Reference Range Interpretation Comments H. PYLORI (BREATH) (test code = NEGATIVE 08149) HEMOGLOBIN [id number] 00:00:00 Test Item Value Reference Range Interpretation Comments HEMOGLOBIN A1c (test code = 09486) 5.5 % LIPID [id number] 00:00:00 Test Item Value Reference Range Interpretation Comments CHOLESTEROL (test code = 2210) 138 MG/DL TRIGLYCERIDES (test code = 2232) 114 MG/DL HDL CHOLESTEROL (test code = 2220) 45 MG/DL CALC LDL CHOL (test code = 2237) 73 MG/DL RISK RATIO LDL/HDL (test code = 1.62 RATIO 2238) LIPID [id number] 00:00:00 Test Item Value Reference Range Interpretation Comments CHOLESTEROL (test code = 2210) 138 MG/DL TRIGLYCERIDES (test code = 2232) 114 MG/DL HDL CHOLESTEROL (test code = 2220) 45 MG/DL CALC LDL CHOL (test code = 2237) 73 MG/DL RISK RATIO LDL/HDL (test code = 1.62 RATIO 2238) COMPREHENSIVE METABOLIC [id number] 05:52:46 Test Item Value Reference Range Interpretation Comments GLUCOSE (test code = 110 MG/DL 70-99 H 2216) BUN (test code = 12 MG/DL 09-02) CREATININE (test 0.67 MG/DL 0.60-1.30 code = 2214) eGFR (2020 CKD-EPI) 115 >60 (test code = 35852) ML/MIN/1.73 CALC BUN/CREAT (test 18 RATIO 09-10 code = 2235) SODIUM (test code = 148 MEQ/L 133-146 H 2230) POTASSIUM (test code 5.0 MEQ/L 3.5-5.4 = 2227) CHLORIDE (test code 108 MEQ/L 95-107 H = 2214) CARBON DIOXIDE (test 30 MEQ/L 19-31 code = 2206) CALCIUM (test code = 9.7 MG/DL 8.5-10.5 2208) PROTEIN, TOTAL (test 8.2 G/DL 6.1-8.3 code = 2229) ALBUMIN (test code = 4.3 G/DL 3.5-5.2 220) CALC GLOBULIN (test 3.9 G/DL 1.9-3.7 H [...] PHOSPHATASE 87 U/L 40-112 (test code = 2204) AST (test code = 28 U/L 9-40 2217) ALT (test code = 28 U/L 5-40 2218) C-REACTIVE [id number] 05:52:34 Test Item Value Reference Range Interpretation Comments C-REACTIVE PROTEIN 4.8 MG/DL <0.5 H UNLESS O THERWISE (test code = 3513) INDICATED , ALL TESTING PERFORMED [facility] [address] [place] [address] DIRECTOR: LUIZ STUBBS M.D. CLIA NUMBER [id number] CAP ACCREDITATION N O. [id number] CBC W/AUTO DIFF WITH [id number] 04:54:28 Test Item Value Reference Range Interpretation [...] RBCS 0.00 K/UL 0.00-0.11 (test code = 08557) CBC W/AUTO [id number] 00:00:00 Test Item Value Reference Range Interpretation [...] NUCLEATED RBCS (test code = 0.00 K/UL 57010) CBC W/AUTO [id number] 00:00:00 Test Item Value Reference Range Interpretation [...] NUCLEATED RBCS (test code = 0.00 K/UL 03632) COMPREHENSIVE METABOLIC [id number] 00:00:00 Test Item Value Reference Range Interpretation Comments GLUCOSE (test code = 2217) 110 MG/DL BUN (test code = 2208) 12 MG/DL CREATININE (test code = 2214) 0.67 MG/DL eGFR (2020 CKD-EPI) (test 115 ML/MIN/1.73 code = 42976) CALC BUN/CREAT (test code = 18 RATIO 2234) SODIUM (test code = 2231) 148 MEQ/L [...] (test code = 2219) 28 U/L C-REACTIVE [id number] 00:00:00 Test Item Value Reference Range Interpretation Comments C-REACTIVE PROTEIN (test code = 4.8 MG/DL 3513) CBC W/AUTO [id number] 00:00:00 Test Item Value Reference Range Interpretation [...] NUCLEATED RBCS (test code = 0.00 K/UL 12724) CBC W/AUTO [id number] 00:00:00 Test Item Value Reference Range Interpretation [...] NUCLEATED RBCS (test code = 0.00 K/UL 35109) CBC W/AUTO [id number] 00:00:00 Test Item Value Reference Range Interpretation [...] NUCLEATED RBCS (test code = 0.00 K/UL 79031) CBC W/AUTO [id number] 00:00:00 Test Item Value Reference Range Interpretation [...] NUCLEATED RBCS (test code = 0.00 K/UL 27925) COMPREHENSIVE METABOLIC [id number] 00:00:00 Test Item Value Reference Range Interpretation Comments GLUCOSE (test code = 2217) 110 MG/DL BUN (test code = 2208) 12 MG/DL CREATININE (test code = 2214) 0.67 MG/DL eGFR (2020 CKD-EPI) (test 115 ML/MIN/1.73 code = 72644) CALC BUN/CREAT (test code = 18 RATIO [...] code = 2219) 28 U/L COMPREHENSIVE METABOLIC [id number] 00:00:00 Test Item Value Reference Range Interpretation Comments GLUCOSE (test code = 2217) 110 MG/DL BUN (test code = 2208) 12 MG/DL CREATININE (test code = 2214) 0.67 MG/DL eGFR (2020 CKD-EPI) (test 115 ML/MIN/1.73 code = 05206) CALC BUN/CREAT (test code = 18 RATIO [...] (test code = 2219) 28 U/L C-REACTIVE [id number] 00:00:00 Test Item Value Reference Range Interpretation Comments C-REACTIVE PROTEIN (test code = 4.8 MG/DL 3513) C-REACTIVE [id number] 00:00:00 Test Item Value Reference Range Interpretation Comments C-REACTIVE PROTEIN (test code = 4.8 MG/DL 3513) CBC W/AUTO [id number] 00:00:00 Test Item Value Reference Range Interpretation [...] NUCLEATED RBCS (test code = 0.00 K/UL 31338) CBC W/AUTO [id number] 00:00:00 Test Item Value Reference Range Interpretation [...] NUCLEATED RBCS (test code = 0.00 K/UL 06869) CBC W/AUTO [id number] 00:00:00 Test Item Value Reference Range Interpretation [...] NUCLEATED RBCS (test code = 0.00 K/UL 54626) COMPREHENSIVE METABOLIC [id number] 00:00:00 Test Item Value Reference Range Interpretation Comments GLUCOSE (test code = 2217) 110 MG/DL BUN (test code = 2208) 12 MG/DL CREATININE (test code = 2214) 0.67 MG/DL eGFR (2020 CKD-EPI) (test 115 ML/MIN/1.73 code = 72528) CALC BUN/CREAT (test code = 18 RATIO [...] code = 2219) 28 U/L CBC W/AUTO [id number] 00:00:00 Test Item Value Reference Range Interpretation [...] NUCLEATED RBCS (test code = 0.00 K/UL 26248) COMPREHENSIVE METABOLIC [id number] 00:00:00 Test Item Value Reference Range Interpretation Comments GLUCOSE (test code = 2217) 110 MG/DL BUN (test code = 2208) 12 MG/DL CREATININE (test code = 2214) 0.67 MG/DL eGFR (2020 CKD-EPI) (test 115 ML/MIN/1.73 code = 11103) CALC BUN/CREAT (test code = 18 RATIO 2235) SODIUM (test code = 2231) 148 MEQ/L POTASSIUM (test code = 2228) 5.0 MEQ/L CHLORIDE (test code = 2215) 108 MEQ/L CARBON DIOXIDE (test code = 30 MEQ/L 2206) CALCIUM (test code = 2209) [...] code = 2219) 28 U/L COMPREHENSIVE METABOLIC [id number] 00:00:00 Test Item Value Reference Range Interpretation Comments GLUCOSE (test code = 2217) 110 MG/DL BUN (test code = 2208) 12 MG/DL CREATININE (test code = 2214) 0.67 MG/DL eGFR (2020 CKD-EPI) (test 115 ML/MIN/1.73 code = 48875) CALC BUN/CREAT (test code = 18 RATIO [...] (test code = 2219) 28 U/L C-REACTIVE [id number] 00:00:00 Test Item Value Reference Range Interpretation Comments C-REACTIVE PROTEIN (test code = 4.8 MG/DL 3513) C-REACTIVE [id number] 00:00:00 Test Item Value Reference Range Interpretation Comments C-REACTIVE PROTEIN (test code = 4.8 MG/DL 3513) C-REACTIVE [id number] 00:00:00 Test Item Value Reference Range Interpretation Comments C-REACTIVE PROTEIN (test code = 4.8 MG/DL 3513) CBC W/AUTO [id number] 00:00:00 Test Item Value Reference Range Interpretation [...] NUCLEATED RBCS (test code = 0.00 K/UL 05238) CBC W/AUTO [id number] 00:00:00 Test Item Value Reference Range Interpretation [...] NUCLEATED RBCS (test code = 0.00 K/UL 08492) CBC W/AUTO [id number] 00:00:00 Test Item Value Reference Range Interpretation [...] NUCLEATED RBCS (test code = 0.00 K/UL 59065) COMPREHENSIVE METABOLIC [id number] 00:00:00 Test Item Value Reference Range Interpretation Comments GLUCOSE (test code = 2217) 110 MG/DL BUN (test code = 2208) 12 MG/DL CREATININE (test code = 2214) 0.67 MG/DL eGFR (2020 CKD-EPI) (test 115 ML/MIN/1.73 code = 70725) CALC BUN/CREAT (test code = 18 RATIO [...] CALC GLOBULIN (test code = 3.9 G/DL 224) CALC A/G RATIO (test code = 1.1 RATIO 2234) BILIRUBIN, TOTAL (test code = 0.5 MG/DL 2206) ALKALINE PHOSPHATASE (test 87 U/L code = 2204) AST (test code = 2218) 28 U/L ALT (test code = 2219) 28 U/L COMPREHENSIVE METABOLIC [id number] 00:00:00 Test Item Value Reference Range Interpretation Comments GLUCOSE (test code = 2217) 110 MG/DL BUN (test code = 2208) 12 MG/DL CREATININE (test code = 2214) 0.67 MG/DL eGFR (2020 CKD-EPI) (test 115 ML/MIN/1.73 code = 46480) CALC BUN/CREAT (test code = 18 RATIO [...] (test code = 2219) 28 U/L C-REACTIVE [id number] 00:00:00 Test Item Value Reference Range Interpretation Comments C-REACTIVE PROTEIN (test code = 4.8 MG/DL 3513) C-REACTIVE [id number] 00:00:00 Test Item Value Reference Range Interpretation Comments C-REACTIVE PROTEIN (test code = 4.8 MG/DL 3513) CBC W/AUTO [id number] 00:00:00 Test Item Value Reference Range Interpretation [...] NUCLEATED RBCS (test code = 0.00 K/UL 04355) CBC W/AUTO [id number] 00:00:00 Test Item Value Reference Range Interpretation [...] NUCLEATED RBCS (test code = 0.00 K/UL 59919) CBC W/AUTO [id number] 00:00:00 Test Item Value Reference Range Interpretation [...] NUCLEATED RBCS (test code = 0.00 K/UL 31457) COMPREHENSIVE METABOLIC [id number] 00:00:00 Test Item Value Reference Range Interpretation Comments GLUCOSE (test code = 2217) 110 MG/DL BUN (test code = 2208) 12 MG/DL CREATININE (test code = 2214) 0.67 MG/DL eGFR (2020 CKD-EPI) (test 115 ML/MIN/1.73 code = 83551) CALC BUN/CREAT (test code = 18 RATIO 2235) SODIUM (test code = 2231) 148 MEQ/L POTASSIUM (test code = 2228) 5.0 MEQ/L CHLORIDE (test code = 2215) 108 MEQ/L CARBON DIOXIDE (test code = 30 MEQ/L 2206) CALCIUM (test code = 2209) [...] code = 2219) 28 U/L COMPREHENSIVE METABOLIC [id number] 00:00:00 Test Item Value Reference Range Interpretation Comments GLUCOSE (test code = 2217) 110 MG/DL BUN (test code = 2208) 12 MG/DL CREATININE (test code = 2214) 0.67 MG/DL eGFR (2020 CKD-EPI) (test 115 ML/MIN/1.73 code = 36902) CALC BUN/CREAT (test code = 18 RATIO 2234) SODIUM (test code = 2231) 148 MEQ/L [...] (test code = 2219) 28 U/L C-REACTIVE [id number] 00:00:00 Test Item Value Reference Range Interpretation Comments C-REACTIVE PROTEIN (test code = 4.8 MG/DL 3513) C-REACTIVE [id number] 00:00:00 Test Item Value Reference Range Interpretation Comments C-REACTIVE PROTEIN (test code = 4.8 MG/DL 3513) CBC W/AUTO [id number] 00:00:00 Test Item Value Reference Range Interpretation [...] NUCLEATED RBCS (test code = 0.00 K/UL 12107) CBC W/AUTO [id number] 00:00:00 Test Item Value Reference Range Interpretation [...] NUCLEATED RBCS (test code = 0.00 K/UL 14097) CBC W/AUTO [id number] 00:00:00 Test Item Value Reference Range Interpretation [...] NUCLEATED RBCS (test code = 0.00 K/UL 90568) COMPREHENSIVE METABOLIC [id number] 00:00:00 Test Item Value Reference Range Interpretation Comments GLUCOSE (test code = 2217) 110 MG/DL BUN (test code = 2208) 12 MG/DL CREATININE (test code = 2214) 0.67 MG/DL eGFR (2020 CKD-EPI) (test 115 ML/MIN/1.73 code = 05142) CALC BUN/CREAT (test code = 18 RATIO [...] code = 2219) 28 U/L COMPREHENSIVE METABOLIC [id number] 00:00:00 Test Item Value Reference Range Interpretation Comments GLUCOSE (test code = 2217) 110 MG/DL BUN (test code = 2208) 12 MG/DL CREATININE (test code = 2214) 0.67 MG/DL eGFR (2020 CKD-EPI) (test 115 ML/MIN/1.73 code = 78137) CALC BUN/CREAT (test code = 18 RATIO [...] (test code = 2219) 28 U/L C-REACTIVE [id number] 00:00:00 Test Item Value Reference Range Interpretation Comments C-REACTIVE PROTEIN (test code = 4.8 MG/DL 3513) C-REACTIVE [id number] 00:00:00 Test Item Value Reference Range Interpretation Comments C-REACTIVE PROTEIN (test code = 4.8 MG/DL 3513) CBC W/AUTO [id number] 00:00:00 Test Item Value Reference Range Interpretation [...] NUCLEATED RBCS (test code = 0.00 K/UL 37910) CBC W/AUTO [id number] 00:00:00 Test Item Value Reference Range Interpretation [...] NUCLEATED RBCS (test code = 0.00 K/UL 52578) CBC W/AUTO [id number] 00:00:00 Test Item Value Reference Range Interpretation [...] NUCLEATED RBCS (test code = 0.00 K/UL 69445) COMPREHENSIVE METABOLIC [id number] 00:00:00 Test Item Value Reference Range Interpretation Comments GLUCOSE (test code = 2217) 110 MG/DL BUN (test code = 2208) 12 MG/DL CREATININE (test code = 2214) 0.67 MG/DL eGFR (2020 CKD-EPI) (test 115 ML/MIN/1.73 code = 40353) CALC BUN/CREAT (test code = 18 RATIO [...] code = 2219) 28 U/L COMPREHENSIVE METABOLIC [id number] 00:00:00 Test Item Value Reference Range Interpretation Comments GLUCOSE (test code = 2217) 110 MG/DL BUN (test code = 2208) 12 MG/DL CREATININE (test code = 2214) 0.67 MG/DL eGFR (2020 CKD-EPI) (test 115 ML/MIN/1.73 code = 13628) CALC BUN/CREAT (test code = 18 RATIO [...] (test code = 2219) 28 U/L C-REACTIVE [id number] 00:00:00 Test Item Value Reference Range Interpretation Comments C-REACTIVE PROTEIN (test code = 4.8 MG/DL 3513) C-REACTIVE [id number] 00:00:00 Test Item Value Reference Range Interpretation Comments C-REACTIVE PROTEIN (test code = 4.8 MG/DL 3513) CBC W/AUTO DIFF WITH [id number] 03:06:39 Test Item Value Reference Range Interpretation [...] message] code = 1065) WBC'S The system [employer] generated this result transmitted ref erence range: [...] ABS NUCLEATED RBCS 0.00 K/UL 0.00-0.11 UNLESS O THERWISE (test code = 98010) INDICATE D, ALL TESTING PERFORM ED [facility], [facility]. [address] [place] [address] [facility] DIRECTOR: LUIZ STUBBS M.D. CLIA NUMBER [id number] CAP ACCREDITATION N O. [id number] CBC W/AUTO [id number] 00:00:00 Test Item Value Reference Range Interpretation [...] NUCLEATED RBCS (test code = 0.00 K/UL 33991) CBC W/AUTO [id number] 00:00:00 Test Item Value Reference Range Interpretation [...] NUCLEATED RBCS (test code = 0.00 K/UL 42115) CBC W/AUTO [id number] 00:00:00 Test Item Value Reference Range Interpretation [...] NUCLEATED RBCS (test code = 0.00 K/UL 99471) CBC W/AUTO [id number] 00:00:00 Test Item Value Reference Range Interpretation [...] NUCLEATED RBCS (test code = 0.00 K/UL 06394) CBC W/AUTO [id number] 00:00:00 Test Item Value Reference Range Interpretation [...] NUCLEATED RBCS (test code = 0.00 K/UL 08647) CBC W/AUTO [id number] 00:00:00 Test Item Value Reference Range Interpretation [...] NUCLEATED RBCS (test code = 0.00 K/UL 81181) CBC W/AUTO [id number] 00:00:00 Test Item Value Reference Range Interpretation [...] NUCLEATED RBCS (test code = 0.00 K/UL 34054) CBC W/AUTO [id number] 00:00:00 Test Item Value Reference Range Interpretation [...] NUCLEATED RBCS (test code = 0.00 K/UL 50590) CBC W/AUTO [id number] 00:00:00 Test Item Value Reference Range Interpretation [...] NUCLEATED RBCS (test code = 0.00 K/UL 63143) CBC W/AUTO [id number] 00:00:00 Test Item Value Reference Range Interpretation [...] NUCLEATED RBCS (test code = 0.00 K/UL 15834) CBC W/AUTO [id number] 00:00:00 Test Item Value Reference Range Interpretation [...] NUCLEATED RBCS (test code = 0.00 K/UL 38599) CBC W/AUTO [id number] 00:00:00 Test Item Value Reference Range Interpretation [...] NUCLEATED RBCS (test code = 0.00 K/UL 29086) CBC W/AUTO [id number] 00:00:00 Test Item Value Reference Range Interpretation [...] NUCLEATED RBCS (test code = 0.00 K/UL 93064) CBC W/AUTO [id number] 00:00:00 Test Item Value Reference Range Interpretation [...] NUCLEATED RBCS (test code = 0.00 K/UL 94531) CBC W/AUTO [id number] 00:00:00 Test Item Value Reference Range Interpretation [...] NUCLEATED RBCS (test code = 0.00 K/UL 81388) CBC W/AUTO [id number] 00:00:00 Test Item Value Reference Range Interpretation [...] NUCLEATED RBCS (test code = 0.00 K/UL 62982) CBC W/AUTO [id number] 00:00:00 Test Item Value Reference Range Interpretation [...] NUCLEATED RBCS (test code = 0.00 K/UL 80563) CBC W/AUTO [id number] 00:00:00 Test Item Value Reference Range Interpretation [...] NUCLEATED RBCS (test code = 0.00 K/UL 58618) CBC W/AUTO [id number] 00:00:00 Test Item Value Reference Range Interpretation [...] NUCLEATED RBCS (test code = 0.00 K/UL 69590) CBC W/AUTO [id number] 00:00:00 Test Item Value Reference Range Interpretation [...] NUCLEATED RBCS (test code = 0.00 K/UL 76624) CBC W/AUTO [id number] 00:00:00 Test Item Value Reference Range Interpretation [...] NUCLEATED RBCS (test code = 0.00 K/UL 40518) CBC W/AUTO [id number] 00:00:00 Test Item Value Reference Range Interpretation [...] NUCLEATED RBCS (test code = 0.00 K/UL 91619) CBC W/AUTO DIFF WITH [id number] 12:11:11 Test Item Value Reference Range Interpretation [...] RBCS TEST NOT 0.00-0.11 (test code = 77790) PERFORMED K/UL COMMENTS (test code = TEST NOT 1016) PERFORMED CBC W/AUTO [id number] 00:00:00 Test Item Value Reference Range Interpretation [...] RBCS (test TEST NOT PERFORMED code = 01651) K/UL COMMENTS (test code = TEST NOT PERFORMED 1016) CBC W/AUTO [id number] 00:00:00 Test Item Value Reference Range Interpretation [...] RBCS (test TEST NOT PERFORMED code = 91623) K/UL COMMENTS (test code = TEST NOT PERFORMED 1016) CBC W/AUTO [id number] 00:00:00 Test Item Value Reference Range Interpretation [...] RBCS (test TEST NOT PERFORMED code = 90199) K/UL COMMENTS (test code = TEST NOT PERFORMED 1016) CBC W/AUTO [id number] 00:00:00 Test Item Value Reference Range Interpretation [...] RBCS (test TEST NOT PERFORMED code = 44521) K/UL COMMENTS (test code = TEST NOT PERFORMED 1016) CBC W/AUTO [id number] 00:00:00 Test Item Value Reference Range Interpretation [...] RBCS (test TEST NOT PERFORMED code = 81933) K/UL COMMENTS (test code = TEST NOT PERFORMED 1016) CBC W/AUTO [id number] 00:00:00 Test Item Value Reference Range Interpretation [...] RBCS (test TEST NOT PERFORMED code = 73057) K/UL COMMENTS (test code = TEST NOT PERFORMED 1016) CBC W/AUTO [id number] 00:00:00 Test Item Value Reference Range Interpretation [...] RBCS (test TEST NOT PERFORMED code = 80215) K/UL COMMENTS (test code = TEST NOT PERFORMED 1016) CBC W/AUTO [id number] 00:00:00 Test Item Value Reference Range Interpretation [...] RBCS (test TEST NOT PERFORMED code = 05020) K/UL COMMENTS (test code = TEST NOT PERFORMED 1016) CBC W/AUTO [id number] 00:00:00 Test Item Value Reference Range Interpretation [...] RBCS (test TEST NOT PERFORMED code = 62242) K/UL COMMENTS (test code = TEST NOT PERFORMED 1016) CBC W/AUTO [id number] 00:00:00 Test Item Value Reference Range Interpretation [...] RBCS (test TEST NOT PERFORMED code = 63832) K/UL COMMENTS (test code = TEST NOT PERFORMED 1016) CBC W/AUTO [id number] 00:00:00 Test Item Value Reference Range Interpretation [...] RBCS (test TEST NOT PERFORMED code = 37293) K/UL COMMENTS (test code = TEST NOT PERFORMED 1016) CBC W/AUTO [id number] 00:00:00 Test Item Value Reference Range Interpretation [...] RBCS (test TEST NOT PERFORMED code = 93861) K/UL COMMENTS (test code = TEST NOT PERFORMED 1016) CBC W/AUTO [id number] 00:00:00 Test Item Value Reference Range Interpretation [...] RBCS (test TEST NOT PERFORMED code = 72395) K/UL COMMENTS (test code = TEST NOT PERFORMED 1016) CBC W/AUTO [id number] 00:00:00 Test Item Value Reference Range Interpretation [...] RBCS (test TEST NOT PERFORMED code = 90829) K/UL COMMENTS (test code = TEST NOT PERFORMED 1016) CBC W/AUTO [id number] 00:00:00 Test Item Value Reference Range Interpretation [...] RBCS (test TEST NOT PERFORMED code = 14235) K/UL COMMENTS (test code = TEST NOT PERFORMED 1016) CBC W/AUTO [id number] 00:00:00 Test Item Value Reference Range Interpretation [...] RBCS (test TEST NOT PERFORMED code = 77940) K/UL COMMENTS (test code = TEST NOT PERFORMED 1016) CBC W/AUTO [id number] 00:00:00 Test Item Value Reference Range Interpretation [...] RBCS (test TEST NOT PERFORMED code = 70816) K/UL COMMENTS (test code = TEST NOT PERFORMED 1016) CBC W/AUTO [id number] 00:00:00 Test Item Value Reference Range Interpretation [...] RBCS (test TEST NOT PERFORMED code = 11636) K/UL COMMENTS (test code = TEST NOT PERFORMED 1016) CBC W/AUTO [id number] 00:00:00 Test Item Value Reference Range Interpretation [...] RBCS (test TEST NOT PERFORMED code = 17746) K/UL COMMENTS (test code = TEST NOT PERFORMED 1016) CBC W/AUTO [id number] 00:00:00 Test Item Value Reference Range Interpretation [...] RBCS (test TEST NOT PERFORMED code = 76615) K/UL COMMENTS (test code = TEST NOT PERFORMED 1016) CBC W/AUTO [id number] 00:00:00 Test Item Value Reference Range Interpretation [...] RBCS (test TEST NOT PERFORMED code = 17117) K/UL COMMENTS (test code = TEST NOT PERFORMED 1016) CBC W/AUTO [id number] 00:00:00 Test Item Value Reference Range Interpretation [...] RBCS (test TEST NOT PERFORMED code = 07630) K/UL COMMENTS (test code = TEST NOT PERFORMED 1016) COMPREHENSIVE METABOLIC [id number] 04:59:13 Test Item Value Reference Range Interpretation Comments GLUCOSE (test code = 99 MG/DL 70-99 2216) BUN (test code = 14 MG/DL 6-20 2207) CREATININE (test 0.78 MG/DL 0.60-1.30 code = 2214) eGFR (2020 CKD-EPI) 100 >60 (test code = 81927) ML/MIN/1.73 CALC BUN/CREAT (test 18 RATIO 6-28 code = 2235) SODIUM (test code = 146 MEQ/L 098-202 2411) POTASSIUM (test code 4.9 MEQ/L 3.5-5.4 = [...] [Automated message] (test code = 220) The [employer] which generated this result transmitted ref erence range: <=1.2. T he reference range was not used to int erpret this result as normal/abnormal . ALKALINE PHOSPHATASE 77 U/L 40-112 (test code = 220) AST (test code = 29 U/L 9-40 2217) ALT (test code = 26 U/L 5-40 UNLESS OTH ERWISE 2218) INDICATED, ALL TESTING PERFORM ED [facility], [place] [address], [place] [address] [place] [address] DIRECTOR: Devon REYIA NUMBER [id number] CAP ACCREDITATION N O. [id number] COMPREHENSIVE METABOLIC [id number] 00:00:00 Test Item Value Reference Range Interpretation Comments GLUCOSE (test code = 2217) 99 MG/DL BUN (test code = 2208) 14 MG/DL CREATININE (test code = 2214) 0.78 MG/DL eGFR (2020 CKD-EPI) (test 100 ML/MIN/1.73 code = 97320) CALC BUN/CREAT (test code = 18 RATIO 2234) SODIUM (test code = 2231) 146 MEQ/L [...] code = 2219) 26 U/L COMPREHENSIVE METABOLIC [id number] 00:00:00 Test Item Value Reference Range Interpretation Comments GLUCOSE (test code = 2217) 99 MG/DL BUN (test code = 2208) 14 MG/DL CREATININE (test code = 2214) 0.78 MG/DL eGFR (2020 CKD-EPI) (test 100 ML/MIN/1.73 code = 48962) CALC BUN/CREAT (test code = 18 RATIO [...] code = 2219) 26 U/L COMPREHENSIVE METABOLIC [id number] 00:00:00 Test Item Value Reference Range Interpretation Comments GLUCOSE (test code = 2217) 99 MG/DL BUN (test code = 2208) 14 MG/DL CREATININE (test code = 2214) 0.78 MG/DL eGFR (2020 CKD-EPI) (test 100 ML/MIN/1.73 code = 32525) CALC BUN/CREAT (test code = 18 RATIO [...] code = 2219) 26 U/L COMPREHENSIVE METABOLIC [id number] 00:00:00 Test Item Value Reference Range Interpretation Comments GLUCOSE (test code = 2216) 99 MG/DL BUN (test code = 2208) 14 MG/DL CREATININE (test code = 2214) 0.78 MG/DL eGFR (2020 CKD-EPI) (test 100 ML/MIN/1.73 code = 78006) CALC BUN/CREAT (test code = 18 RATIO [...] code = 2219) 26 U/L COMPREHENSIVE METABOLIC [id number] 00:00:00 Test Item Value Reference Range Interpretation Comments GLUCOSE (test code = 2217) 99 MG/DL BUN (test code = 2208) 14 MG/DL CREATININE (test code = 2214) 0.78 MG/DL eGFR (2020 CKD-EPI) (test 100 ML/MIN/1.73 code = 08242) CALC BUN/CREAT (test code = 18 RATIO [...] code = 2204) AST (test code = 221) 29 U/L ALT (test code = 2219) 26 U/L COMPREHENSIVE METABOLIC [id number] 00:00:00 Test Item Value Reference Range Interpretation Comments GLUCOSE (test code = 2217) 99 MG/DL BUN (test code = 2208) 14 MG/DL CREATININE (test code = 2214) 0.78 MG/DL eGFR (2020 CKD-EPI) (test 100 ML/MIN/1.73 code = 21965) CALC BUN/CREAT (test code = 18 RATIO 5) SODIUM (test code = 2231) [...] code = 2219) 26 U/L COMPREHENSIVE METABOLIC [id number] 00:00:00 Test Item Value Reference Range Interpretation Comments GLUCOSE (test code = 2217) 99 MG/DL BUN (test code = 2208) 14 MG/DL CREATININE (test code = 2214) 0.78 MG/DL eGFR (2020 CKD-EPI) (test 100 ML/MIN/1.73 code = 15499) CALC BUN/CREAT (test code = 18 RATIO [...] CALC GLOBULIN (test code = 3.9 G/DL 224) CALC A/G RATIO (test code = 1.1 RATIO 2233) BILIRUBIN, TOTAL (test code = 0.6 MG/DL 2206) ALKALINE PHOSPHATASE (test 77 U/L code = 2204) AST (test code = 2218) 29 U/L ALT (test code = 2219) 26 U/L COMPREHENSIVE METABOLIC [id number] 00:00:00 Test Item Value Reference Range Interpretation Comments GLUCOSE (test code = 2217) 99 MG/DL BUN (test code = 2208) 14 MG/DL CREATININE (test code = 2214) 0.78 MG/DL eGFR (2020 CKD-EPI) (test 100 ML/MIN/1.73 code = 25222) CALC BUN/CREAT (test code = 18 RATIO [...] code = 2219) 26 U/L COMPREHENSIVE METABOLIC [id number] 00:00:00 Test Item Value Reference Range Interpretation Comments GLUCOSE (test code = 2217) 99 MG/DL BUN (test code = 2208) 14 MG/DL CREATININE (test code = 2214) 0.78 MG/DL eGFR (2020 CKD-EPI) (test 100 ML/MIN/1.73 code = 23810) CALC BUN/CREAT (test code = 18 RATIO [...] code = 2219) 26 U/L COMPREHENSIVE METABOLIC [id number] 00:00:00 Test Item Value Reference Range Interpretation Comments GLUCOSE (test code = 2217) 99 MG/DL BUN (test code = 2208) 14 MG/DL CREATININE (test code = 2214) 0.78 MG/DL eGFR (2020 CKD-EPI) (test 100 ML/MIN/1.73 code = 93286) CALC BUN/CREAT (test code = 18 RATIO [...] BILIRUBIN, TOTAL (test code = 0.6 MG/DL 220) ALKALINE PHOSPHATASE (test 77 U/L code = 2204) AST (test code = 2218) 29 U/L ALT (test code = 2219) 26 U/L COMPREHENSIVE METABOLIC [id number] 00:00:00 Test Item Value Reference Range Interpretation Comments GLUCOSE (test code = 2217) 99 MG/DL BUN (test code = 2208) 14 MG/DL CREATININE (test code = 2214) 0.78 MG/DL eGFR (2020 CKD-EPI) (test 100 ML/MIN/1.73 code = 70700) CALC BUN/CREAT (test code = 18 RATIO 2235) SODIUM (test code = 2231) 146 MEQ/L POTASSIUM (test code = 2228) 4.9 MEQ/L CHLORIDE (test code = 2215) 108 MEQ/L CARBON DIOXIDE (test code = 29 MEQ/L 2205) CALCIUM (test code = 2209) 9.9 MG/DL PROTEIN, TOTAL (test code = 8.3 G/DL 9) ALBUMIN (test code = 2201) 4.4 G/DL CALC GLOBULIN (test code = 3.9 G/DL 2240) CALC A/G RATIO (test code = 1.1 RATIO 2234) BILIRUBIN, TOTAL (test code = 0.6 MG/DL 7) ALKALINE PHOSPHATASE (test 77 U/L code = 2204) AST (test code = 2218) 29 U/L ALT (test code = 2219) 26 U/L COMPREHENSIVE METABOLIC [id number] 00:00:00 Test Item Value Reference Range Interpretation Comments GLUCOSE (test code = 2217) 99 MG/DL BUN (test code = 2208) 14 MG/DL CREATININE (test code = 2214) 0.78 MG/DL eGFR (2020 CKD-EPI) (test 100 ML/MIN/1.73 code = 81451) CALC BUN/CREAT (test code = 18 RATIO [...] code = 2219) 26 U/L COMPREHENSIVE METABOLIC [id number] 00:00:00 Test Item Value Reference Range Interpretation Comments GLUCOSE (test code = 2217) 99 MG/DL BUN (test code = 2208) 14 MG/DL CREATININE (test code = 2214) 0.78 MG/DL eGFR (2020 CKD-EPI) (test 100 ML/MIN/1.73 code = 60542) CALC BUN/CREAT (test code = 18 RATIO [...] code = 2219) 26 U/L COMPREHENSIVE METABOLIC [id number] 00:00:00 Test Item Value Reference Range Interpretation Comments GLUCOSE (test code = 2217) 99 MG/DL BUN (test code = 2208) 14 MG/DL CREATININE (test code = 2214) 0.78 MG/DL eGFR (2020 CKD-EPI) (test 100 ML/MIN/1.73 code = 87753) CALC BUN/CREAT (test code = 18 RATIO 2234) SODIUM (test code = 2231) 146 MEQ/L [...] (test code = 2219) 26 U/L POCT [id number] 21:38:00 Test Item Value Reference Range Interpretation Comments POCT PREG (test code = 1605) negative On board controls acceptable with present C Line (test code = 3574) POCT PREG LOT # (test code = 3575) [id number] POCT PREG TEST DATE (test 03/15/22 code = 3576) Lab Interpretation (test code = Normal 67589-5) [facility] (HIGH RISK) 2020-02-08 00:00:00 Test Item Value Reference Range Interpretation Comments SARS-CoV-2 INTERPRETATION Negative (test code = 58239) SOURCE (test code = 31604) NASOPHARYNGEAL_SWAB _IN_VTM__UTM SARS-CoV-2 (COVID-19) by RT-PCR (HIGH RISK)2020-02-08 00:00:00 Test Item Value Reference Range Interpretation Comments SARS-CoV-2 INTERPRETATION Negative (test code = 22166) SOURCE (test code = 40951) NASOPHARYNGEAL_SWAB _IN_VTM__UTM SARS-CoV-2 (COVID-19) by RT-PCR (HIGH RISK)2020-02-08 00:00:00 Test Item Value Reference Range Interpretation Comments SARS-CoV-2 INTERPRETATION Negative (test code = 88225) SOURCE (test code = 58607) NASOPHARYNGEAL_SWAB _IN_VTM__UTM SARS-CoV-2 (COVID-19) by RT-PCR (HIGH RISK)2020-02-08 00:00:00 Test Item Value Reference Range Interpretation Comments SARS-CoV-2 INTERPRETATION Negative (test code = 65055) SOURCE (test code = 43760) NASOPHARYNGEAL_SWAB _IN_VTM__UTM SARS-CoV-2 (COVID-19) by RT-PCR (HIGH RISK)2020-02-08 00:00:00 Test Item Value Reference Range Interpretation Comments SARS-CoV-2 INTERPRETATION Negative (test code = 37195) SOURCE (test code = 09427) NASOPHARYNGEAL_SWAB _IN_VTM__UTM SARS-CoV-2 (COVID-19) by RT-PCR (HIGH RISK)2020-02-08 00:00:00 Test Item Value Reference Range Interpretation Comments SARS-CoV-2 INTERPRETATION Negative (test code = 83132) SOURCE (test code = 08920) NASOPHARYNGEAL_SWAB _IN_VTM__UTM SARS-CoV-2 (COVID-19) by RT-PCR (HIGH RISK)2020-02-08 00:00:00 Test Item Value Reference Range Interpretation Comments SARS-CoV-2 INTERPRETATION Negative (test code = 01817) SOURCE (test code = 82219) NASOPHARYNGEAL_SWAB _IN_VTM__UTM SARS-CoV-2 (COVID-19) by RT-PCR (HIGH RISK)2020-02-08 00:00:00 Test Item Value Reference Range Interpretation Comments SARS-CoV-2 INTERPRETATION Negative (test code = 20501) SOURCE (test code = 78864) NASOPHARYNGEAL_SWAB _IN_VTM__UTM QUANTIFERON TB GOLD PLUS [ADDED]2019-10-14 00:00:00 Test Item Value Reference Range Interpretation Comments QUANTIFERON TB GOLD PLUS (test NEGATIVE code = 69640) TB1-NIL (test code = 94337) 0.00 IU/ML TB2-NIL (test code = 24607) -0.01 IU/ML MITOGEN-NIL (test code = 93229) 7.87 IU/ML NIL (test code = 08791) 0.02 IU/ML QUANTIFERON TB GOLD PLUS [ADDED]2019-10-14 00:00:00 Test Item Value Reference Range Interpretation Comments QUANTIFERON TB GOLD PLUS (test NEGATIVE code = 35088) TB1-NIL (test code = 50671) 0.00 IU/ML TB2-NIL (test code = 07250) -0.01 IU/ML MITOGEN-NIL (test code = 10569) 7.87 IU/ML NIL (test code = 38836) 0.02 IU/ML QUANTIFERON TB GOLD PLUS [ADDED]2019-10-14 00:00:00 Test Item Value Reference Range Interpretation Comments QUANTIFERON TB GOLD PLUS (test NEGATIVE code = 65417) TB1-NIL (test code = 16040) 0.00 IU/ML TB2-NIL (test code = 40530) -0.01 IU/ML MITOGEN-NIL (test code = 65065) 7.87 IU/ML NIL (test code = 90165) 0.02 IU/ML QUANTIFERON TB GOLD PLUS [ADDED]2019-10-14 00:00:00 Test Item Value Reference Range Interpretation Comments QUANTIFERON TB GOLD PLUS (test NEGATIVE code = 53777) TB1-NIL (test code = 61635) 0.00 IU/ML TB2-NIL (test code = 65231) -0.01 IU/ML MITOGEN-NIL (test code = 21517) 7.87 IU/ML NIL (test code = 29726) 0.02 IU/ML QUANTIFERON TB GOLD PLUS [ADDED]2019-10-14 00:00:00 Test Item Value Reference Range Interpretation Comments QUANTIFERON TB GOLD PLUS (test NEGATIVE code = 04932) TB1-NIL (test code = 48693) 0.00 IU/ML TB2-NIL (test code = 12118) -0.01 IU/ML MITOGEN-NIL (test code = 74561) 7.87 IU/ML NIL (test code = 67503) 0.02 IU/ML QUANTIFERON TB GOLD PLUS [ADDED]2019-10-14 00:00:00 Test Item Value Reference Range Interpretation Comments QUANTIFERON TB GOLD PLUS (test NEGATIVE code = 68291) TB1-NIL (test code = 19077) 0.00 IU/ML TB2-NIL (test code = 03422) -0.01 IU/ML MITOGEN-NIL (test code = 19745) 7.87 IU/ML NIL (test code = 99509) 0.02 IU/ML QUANTIFERON TB GOLD PLUS [ADDED]2019-10-14 00:00:00 Test Item Value Reference Range Interpretation Comments QUANTIFERON TB GOLD PLUS (test NEGATIVE code = 30773) TB1-NIL (test code = 22659) 0.00 IU/ML TB2-NIL (test code = 24099) -0.01 IU/ML MITOGEN-NIL (test code = 68957) 7.87 IU/ML NIL (test code = 03025) 0.02 IU/ML QUANTIFERON TB GOLD PLUS [ADDED]2019-10-14 00:00:00 Test Item Value Reference Range Interpretation Comments QUANTIFERON TB GOLD PLUS (test NEGATIVE code = 71283) TB1-NIL (test code = 65252) 0.00 IU/ML TB2-NIL (test code = 53860) -0.01 IU/ML MITOGEN-NIL (test code = 15532) 7.87 IU/ML NIL (test code = 83578) 0.02 IU/ML CBC W/AUTO [id number] 00:00:00 Test Item Value Reference Range Interpretation [...] code = 1015) 283 K/UL CBC W/AUTO [id number] 00:00:00 Test Item Value Reference Range Interpretation [...] code = 1015) 283 K/UL COMPREHENSIVE METABOLIC [id number] 00:00:00 Test Item Value Reference Range Interpretation Comments GLUCOSE (test code = 2217) 101 MG/DL BUN (test code = 2208) 9 MG/DL CREATININE (test code = 2214) 0.59 MG/DL eGFR AMER. (test code 138 ML/MIN/1.73 = 28480) eGFR NON- AMER. (test 119 ML/MIN/1.73 code = 19861) CALC BUN/CREAT (test code = 15 RATIO [...] code = 2219) 35 U/L ACUTE HEPATITIS [id number] 00:00:00 Test Item Value Reference Range Interpretation Comments HEPATITIS A IgM (test code = NON-REACTIVE 45585) HEPATITIS B CORE IgM (test code NON-REACTIVE = 4618) HEPATITIS B SURF AG (test code = NON-REACTIVE 2739) HEPATITIS C ANTIBODY (test code NON-REACTIVE = 4675) INTERPRETATION HEPATITIS A: (NOTE) (test code = 2552) INTERPRETATION HEPATITIS B: (NOTE) (test code = 20885) INTERPRETATION HEPATITIS C: (NOTE) (test code = 28242) CBC W/AUTO [id number] 00:00:00 Test Item Value Reference Range Interpretation [...] code = 1015) 283 K/UL CBC W/AUTO [id number] 00:00:00 Test Item Value Reference Range Interpretation [...] code = 1015) 283 K/UL CBC W/AUTO [id number] 00:00:00 Test Item Value Reference Range Interpretation [...] code = 1015) 283 K/UL CBC W/AUTO [id number] 00:00:00 Test Item Value Reference Range Interpretation [...] code = 1015) 283 K/UL COMPREHENSIVE METABOLIC [id number] 00:00:00 Test Item Value Reference Range Interpretation Comments GLUCOSE (test code = 2217) 101 MG/DL BUN (test code = 2208) 9 MG/DL CREATININE (test code = 2214) 0.59 MG/DL eGFR AMER. (test code 138 ML/MIN/1.73 = 16826) eGFR NON- AMER. (test 119 ML/MIN/1.73 code = 35494) CALC BUN/CREAT (test code = 15 RATIO [...] code = 2219) 35 U/L COMPREHENSIVE METABOLIC [id number] 00:00:00 Test Item Value Reference Range Interpretation Comments GLUCOSE (test code = 2217) 101 MG/DL BUN (test code = 2208) 9 MG/DL CREATININE (test code = 2214) 0.59 MG/DL eGFR AMER. (test code 138 ML/MIN/1.73 = 51332) eGFR NON- AMER. (test 119 ML/MIN/1.73 code = 40710) CALC BUN/CREAT (test code = 15 RATIO [...] code = 2219) 35 U/L ACUTE HEPATITIS [id number] 00:00:00 Test Item Value Reference Range Interpretation Comments HEPATITIS A IgM (test code = NON-REACTIVE 88366) HEPATITIS B CORE IgM (test code NON-REACTIVE = 4644) HEPATITIS B SURF AG (test code = NON-REACTIVE 2739) HEPATITIS C ANTIBODY (test code NON-REACTIVE = 4675) INTERPRETATION HEPATITIS A: (NOTE) (test code = 2552) INTERPRETATION HEPATITIS B: (NOTE) (test code = 75134) INTERPRETATION HEPATITIS C: (NOTE) (test code = 02950) ACUTE HEPATITIS [id number] 00:00:00 Test Item Value Reference Range Interpretation Comments HEPATITIS A IgM (test code = NON-REACTIVE 19733) HEPATITIS B CORE IgM (test code NON-REACTIVE = 4644) HEPATITIS B SURF AG (test code = NON-REACTIVE 2739) HEPATITIS C ANTIBODY (test code NON-REACTIVE = 4675) INTERPRETATION HEPATITIS A: (NOTE) (test code = 2552) INTERPRETATION HEPATITIS B: (NOTE) (test code = 80353) INTERPRETATION HEPATITIS C: (NOTE) (test code = 91215) CBC W/AUTO [id number] 00:00:00 Test Item Value Reference Range Interpretation [...] code = 1015) 283 K/UL CBC W/AUTO [id number] 00:00:00 Test Item Value Reference Range Interpretation [...] code = 1015) 283 K/UL COMPREHENSIVE METABOLIC [id number] 00:00:00 Test Item Value Reference Range Interpretation Comments GLUCOSE (test code = 2217) 101 MG/DL BUN (test code = 2208) 9 MG/DL CREATININE (test code = 2214) 0.59 MG/DL eGFR AMER. (test code 138 ML/MIN/1.73 = 31345) eGFR NON- AMER. (test 119 ML/MIN/1.73 code = 54673) CALC BUN/CREAT (test code = 15 RATIO [...] code = 2219) 35 U/L CBC W/AUTO [id number] 00:00:00 Test Item Value Reference Range Interpretation [...] code = 1015) 283 K/UL CBC W/AUTO [id number] 00:00:00 Test Item Value Reference Range Interpretation [...] code = 1015) 283 K/UL COMPREHENSIVE METABOLIC [id number] 00:00:00 Test Item Value Reference Range Interpretation Comments GLUCOSE (test code = 2217) 101 MG/DL BUN (test code = 2208) 9 MG/DL CREATININE (test code = 2214) 0.59 MG/DL eGFR AMER. (test code 138 ML/MIN/1.73 = 13876) eGFR NON- AMER. (test 119 ML/MIN/1.73 code = 09467) CALC BUN/CREAT (test code = 15 RATIO [...] code = 2219) 35 U/L COMPREHENSIVE METABOLIC [id number] 00:00:00 Test Item Value Reference Range Interpretation Comments GLUCOSE (test code = 2217) 101 MG/DL BUN (test code = 2208) 9 MG/DL CREATININE (test code = 2214) 0.59 MG/DL eGFR AMER. (test code 138 ML/MIN/1.73 = 12592) eGFR NON- AMER. (test 119 ML/MIN/1.73 code = 45372) CALC BUN/CREAT (test code = 15 RATIO 2235) SODIUM (test code = 2231) 146 MEQ/L POTASSIUM (test code = 2228) 4.2 MEQ/L CHLORIDE (test code = 2215) 106 MEQ/L CARBON DIOXIDE (test code = 28 MEQ/L 2206) CALCIUM (test code = 2209) 9.9 MG/DL PROTEIN, TOTAL (test code = 8.1 G/DL 2229) ALBUMIN (test code = 2201) 4.5 G/DL CALC GLOBULIN (test code = 3.6 G/DL 2240) CALC A/G RATIO (test code = 1.3 RATIO 2234) BILIRUBIN, TOTAL (test code = 0.3 MG/DL 2207) ALKALINE PHOSPHATASE (test 79 U/L code = 2204) AST (test code = 2218) 32 U/L ALT (test code = 2219) 35 U/L ACUTE HEPATITIS [id number] 00:00:00 Test Item Value Reference Range Interpretation Comments HEPATITIS A IgM (test code = NON-REACTIVE 12146) HEPATITIS B CORE IgM (test code NON-REACTIVE = 1055) HEPATITIS B SURF AG (test code = NON-REACTIVE 1527) HEPATITIS C ANTIBODY (test code NON-REACTIVE = 7617) INTERPRETATION HEPATITIS A: (NOTE) (test code = 2552) INTERPRETATION HEPATITIS B: (NOTE) (test code = 06087) INTERPRETATION HEPATITIS C: (NOTE) (test code = 17864) ACUTE HEPATITIS [id number] 00:00:00 Test Item Value Reference Range Interpretation Comments HEPATITIS A IgM (test code = NON-REACTIVE 27516) HEPATITIS B CORE IgM (test code NON-REACTIVE = 4644) HEPATITIS B SURF AG (test code = NON-REACTIVE 2739) HEPATITIS C ANTIBODY (test code NON-REACTIVE = 4675) INTERPRETATION HEPATITIS A: (NOTE) (test code = 2552) INTERPRETATION HEPATITIS B: (NOTE) (test code = 01188) INTERPRETATION HEPATITIS C: (NOTE) (test code = 84142) ACUTE HEPATITIS [id number] 00:00:00 Test Item Value Reference Range Interpretation Comments HEPATITIS A IgM (test code = NON-REACTIVE 02468) HEPATITIS B CORE IgM (test code NON-REACTIVE = 4644) HEPATITIS B SURF AG (test code = NON-REACTIVE 2739) HEPATITIS C ANTIBODY (test code NON-REACTIVE = 4675) INTERPRETATION HEPATITIS A: (NOTE) (test code = 2552) INTERPRETATION HEPATITIS B: (NOTE) (test code = 09495) INTERPRETATION HEPATITIS C: (NOTE) (test code = 21138) CBC W/AUTO [id number] 00:00:00 Test Item Value Reference Range Interpretation [...] code = 1015) 283 K/UL CBC W/AUTO [id number] 00:00:00 Test Item Value Reference Range Interpretation [...] code = 1015) 283 K/UL CBC W/AUTO [id number] 00:00:00 Test Item Value Reference Range Interpretation [...] code = 1015) 283 K/UL COMPREHENSIVE METABOLIC [id number] 00:00:00 Test Item Value Reference Range Interpretation Comments GLUCOSE (test code = 2217) 101 MG/DL BUN (test code = 2208) 9 MG/DL CREATININE (test code = 2214) 0.59 MG/DL eGFR AMER. (test code 138 ML/MIN/1.73 = 98719) eGFR NON- AMER. (test 119 ML/MIN/1.73 code = 74739) CALC BUN/CREAT (test code = 15 RATIO 2235) SODIUM (test code = 2231) 146 MEQ/L POTASSIUM (test code = 2228) 4.2 MEQ/L CHLORIDE (test code = 2215) 106 MEQ/L CARBON DIOXIDE (test code = 28 MEQ/L 2206) CALCIUM (test code = 2209) 9.9 MG/DL PROTEIN, TOTAL (test code = 8.1 G/DL 2229) ALBUMIN (test code = 2201) 4.5 G/DL CALC GLOBULIN (test code = 3.6 G/DL 2240) CALC A/G RATIO (test code = 1.3 RATIO 2234) BILIRUBIN, TOTAL (test code = 0.3 MG/DL 2207) ALKALINE PHOSPHATASE (test 79 U/L code = 2204) AST (test code = 2218) 32 U/L ALT (test code = 2219) 35 U/L COMPREHENSIVE METABOLIC [id number] 00:00:00 Test Item Value Reference Range Interpretation Comments GLUCOSE (test code = 2217) 101 MG/DL BUN (test code = 2208) 9 MG/DL CREATININE (test code = 2214) 0.59 MG/DL eGFR AMER. (test code 138 ML/MIN/1.73 = 79578) eGFR NON- AMER. (test 119 ML/MIN/1.73 code = 65559) CALC BUN/CREAT (test code = 15 RATIO [...] code = 2219) 35 U/L ACUTE HEPATITIS [id number] 00:00:00 Test Item Value Reference Range Interpretation Comments HEPATITIS A IgM (test code = NON-REACTIVE 36122) HEPATITIS B CORE IgM (test code NON-REACTIVE = 5634) HEPATITIS B SURF AG (test code = NON-REACTIVE 9875) HEPATITIS C ANTIBODY (test code NON-REACTIVE = 4215) INTERPRETATION HEPATITIS A: (NOTE) (test code = 2552) INTERPRETATION HEPATITIS B: (NOTE) (test code = 23839) INTERPRETATION HEPATITIS C: (NOTE) (test code = 63490) ACUTE HEPATITIS [id number] 00:00:00 Test Item Value Reference Range Interpretation Comments HEPATITIS A IgM (test code = NON-REACTIVE 75673) HEPATITIS B CORE IgM (test code NON-REACTIVE = 4644) HEPATITIS B SURF AG (test code = NON-REACTIVE 6179) HEPATITIS C ANTIBODY (test code NON-REACTIVE = 4675) INTERPRETATION HEPATITIS A: (NOTE) (test code = 2552) INTERPRETATION HEPATITIS B: (NOTE) (test code = 72658) INTERPRETATION HEPATITIS C: (NOTE) (test code = 97181) CBC W/AUTO [id number] 00:00:00 Test Item Value Reference Range Interpretation [...] code = 1015) 283 K/UL CBC W/AUTO [id number] 00:00:00 Test Item Value Reference Range Interpretation [...] code = 1015) 283 K/UL CBC W/AUTO [id number] 00:00:00 Test Item Value Reference Range Interpretation [...] code = 1015) 283 K/UL COMPREHENSIVE METABOLIC [id number] 00:00:00 Test Item Value Reference Range Interpretation Comments GLUCOSE (test code = 2217) 101 MG/DL BUN (test code = 2208) 9 MG/DL CREATININE (test code = 2214) 0.59 MG/DL eGFR AMER. (test code 138 ML/MIN/1.73 = 59754) eGFR NON- AMER. (test 119 ML/MIN/1.73 code = 00286) CALC BUN/CREAT (test code = 15 RATIO 223) SODIUM (test code = 2231) 146 MEQ/L [...] 2239) CALC A/G RATIO (test code = 1.3 RATIO 2233) BILIRUBIN, TOTAL (test code = 0.3 MG/DL 2206) ALKALINE PHOSPHATASE (test 79 U/L code = 2204) AST (test code = 2218) 32 U/L ALT (test code = 2219) 35 U/L COMPREHENSIVE METABOLIC [id number] 00:00:00 Test Item Value Reference Range Interpretation Comments GLUCOSE (test code = 2217) 101 MG/DL BUN (test code = 2208) 9 MG/DL CREATININE (test code = 2214) 0.59 MG/DL eGFR AMER. (test code 138 ML/MIN/1.73 = 83274) eGFR NON- AMER. (test 119 ML/MIN/1.73 code = 24547) CALC BUN/CREAT (test code = 15 RATIO 2235) SODIUM (test code = 2231) 146 MEQ/L POTASSIUM (test code = 2228) 4.2 MEQ/L CHLORIDE (test code = 2215) 106 MEQ/L CARBON DIOXIDE (test code = 28 MEQ/L 6) CALCIUM (test code = 2209) 9.9 MG/DL [...] code = 2219) 35 U/L ACUTE HEPATITIS [id number] 00:00:00 Test Item Value Reference Range Interpretation Comments HEPATITIS A IgM (test code = NON-REACTIVE 79619) HEPATITIS B CORE IgM (test code NON-REACTIVE = 4644) HEPATITIS B SURF AG (test code = NON-REACTIVE 9) HEPATITIS C ANTIBODY (test code NON-REACTIVE = 4675) INTERPRETATION HEPATITIS A: (NOTE) (test code = 2552) INTERPRETATION HEPATITIS B: (NOTE) (test code = 08010) INTERPRETATION HEPATITIS C: (NOTE) (test code = 52724) ACUTE HEPATITIS [id number] 00:00:00 Test Item Value Reference Range Interpretation Comments HEPATITIS A IgM (test code = NON-REACTIVE 76041) HEPATITIS B CORE IgM (test code NON-REACTIVE = 4644) HEPATITIS B SURF AG (test code = NON-REACTIVE 2739) HEPATITIS C ANTIBODY (test code NON-REACTIVE = 4675) INTERPRETATION HEPATITIS A: (NOTE) (test code = 2552) INTERPRETATION HEPATITIS B: (NOTE) (test code = 70745) INTERPRETATION HEPATITIS C: (NOTE) (test code = 56341) CBC W/AUTO [id number] 00:00:00 Test Item Value Reference Range Interpretation [...] code = 1015) 283 K/UL CBC W/AUTO [id number] 00:00:00 Test Item Value Reference Range Interpretation [...] code = 1015) 283 K/UL CBC W/AUTO [id number] 00:00:00 Test Item Value Reference Range Interpretation [...] code = 1015) 283 K/UL COMPREHENSIVE METABOLIC [id number] 00:00:00 Test Item Value Reference Range Interpretation Comments GLUCOSE (test code = 2217) 101 MG/DL BUN (test code = 2208) 9 MG/DL CREATININE (test code = 2214) 0.59 MG/DL eGFR AMER. (test code 138 ML/MIN/1.73 = 77399) eGFR NON- AMER. (test 119 ML/MIN/1.73 code = 44029) CALC BUN/CREAT (test code = 15 RATIO [...] code = 2219) 35 U/L COMPREHENSIVE METABOLIC [id number] 00:00:00 Test Item Value Reference Range Interpretation Comments GLUCOSE (test code = 2217) 101 MG/DL BUN (test code = 2208) 9 MG/DL CREATININE (test code = 2214) 0.59 MG/DL eGFR AMER. (test code 138 ML/MIN/1.73 = 51981) eGFR NON- AMER. (test 119 ML/MIN/1.73 code = 98001) CALC BUN/CREAT (test code = 15 RATIO [...] 2239) CALC A/G RATIO (test code = 1.3 RATIO 2233) BILIRUBIN, TOTAL (test code = 0.3 MG/DL 2206) ALKALINE PHOSPHATASE (test 79 U/L code = 2204) AST (test code = 2218) 32 U/L ALT (test code = 2219) 35 U/L ACUTE HEPATITIS [id number] 00:00:00 Test Item Value Reference Range Interpretation Comments HEPATITIS A IgM (test code = NON-REACTIVE 61573) HEPATITIS B CORE IgM (test code NON-REACTIVE = 4644) HEPATITIS B SURF AG (test code = NON-REACTIVE 2739) HEPATITIS C ANTIBODY (test code NON-REACTIVE = 4675) INTERPRETATION HEPATITIS A: (NOTE) (test code = 2552) INTERPRETATION HEPATITIS B: (NOTE) (test code = 18888) INTERPRETATION HEPATITIS C: (NOTE) (test code = 79112) ACUTE HEPATITIS [id number] 00:00:00 Test Item Value Reference Range Interpretation Comments HEPATITIS A IgM (test code = NON-REACTIVE 78801) HEPATITIS B CORE IgM (test code NON-REACTIVE = 4644) HEPATITIS B SURF AG (test code = NON-REACTIVE 2739) HEPATITIS C ANTIBODY (test code NON-REACTIVE = 4675) INTERPRETATION HEPATITIS A: (NOTE) (test code = 2552) INTERPRETATION HEPATITIS B: (NOTE) (test code = 42640) INTERPRETATION HEPATITIS C: (NOTE) (test code = 50286) CBC W/AUTO [id number] 00:00:00 Test Item Value Reference Range Interpretation [...] code = 1015) 283 K/UL CBC W/AUTO [id number] 00:00:00 Test Item Value Reference Range Interpretation [...] code = 1015) 283 K/UL CBC W/AUTO [id number] 00:00:00 Test Item Value Reference Range Interpretation [...] code = 1015) 283 K/UL COMPREHENSIVE METABOLIC [id number] 00:00:00 Test Item Value Reference Range Interpretation Comments GLUCOSE (test code = 2217) 101 MG/DL BUN (test code = 2208) 9 MG/DL CREATININE (test code = 2214) 0.59 MG/DL eGFR AMER. (test code 138 ML/MIN/1.73 = 56783) eGFR NON- AMER. (test 119 ML/MIN/1.73 code = 84088) CALC BUN/CREAT (test code = 15 RATIO [...] code = 2219) 35 U/L COMPREHENSIVE METABOLIC [id number] 00:00:00 Test Item Value Reference Range Interpretation Comments GLUCOSE (test code = 2217) 101 MG/DL BUN (test code = 2208) 9 MG/DL CREATININE (test code = 2214) 0.59 MG/DL eGFR AMER. (test code 138 ML/MIN/1.73 = 38350) eGFR NON- AMER. (test 119 ML/MIN/1.73 code = 38473) CALC BUN/CREAT (test code = 15 RATIO [...] 2239) CALC A/G RATIO (test code = 1.3 RATIO 2233) BILIRUBIN, TOTAL (test code = 0.3 MG/DL 2206) ALKALINE PHOSPHATASE (test 79 U/L code = 2204) AST (test code = 2218) 32 U/L ALT (test code = 2219) 35 U/L ACUTE HEPATITIS [id number] 00:00:00 Test Item Value Reference Range Interpretation Comments HEPATITIS A IgM (test code = NON-REACTIVE 03611) HEPATITIS B CORE IgM (test code NON-REACTIVE = 4644) HEPATITIS B SURF AG (test code = NON-REACTIVE 2739) HEPATITIS C ANTIBODY (test code NON-REACTIVE = 4675) INTERPRETATION HEPATITIS A: (NOTE) (test code = 2552) INTERPRETATION HEPATITIS B: (NOTE) (test code = 93029) INTERPRETATION HEPATITIS C: (NOTE) (test code = 01400) ACUTE HEPATITIS [id number] 00:00:00 Test Item Value Reference Range Interpretation Comments HEPATITIS A IgM (test code = NON-REACTIVE 63369) HEPATITIS B CORE IgM (test code NON-REACTIVE = 4644) HEPATITIS B SURF AG (test code = NON-REACTIVE 2739) HEPATITIS C ANTIBODY (test code NON-REACTIVE = 4675) INTERPRETATION HEPATITIS A: (NOTE) (test code = 2552) INTERPRETATION HEPATITIS B: (NOTE) (test code = 86148) INTERPRETATION HEPATITIS C: (NOTE) (test code = 66153) COMPREHENSIVE METABOLIC [id number] 00:00:00 Test Item Value Reference Range Interpretation Comments GLUCOSE (test code = 2217) 88 MG/DL BUN (test code = 2208) 9 MG/DL CREATININE (test code = 2214) 0.71 MG/DL eGFR AMER. (test code 131 ML/MIN/1.73 = 97646) eGFR NON- AMER. (test 113 ML/MIN/1.73 code = 43953) CALC BUN/CREAT (test code = 13 RATIO 2235) SODIUM (test code = 2231) 144 MEQ/L POTASSIUM (test code = 2228) 4.3 MEQ/L CHLORIDE (test code = 2215) 103 MEQ/L CARBON DIOXIDE (test code = 27 MEQ/L 220) CALCIUM (test code = 2209) 9.7 MG/DL PROTEIN, TOTAL (test code = 8.0 G/DL 222) ALBUMIN (test code = 2201) 4.4 G/DL CALC GLOBULIN (test code = 3.6 G/DL 2240) CALC A/G RATIO (test code = 1.2 RATIO 2234) BILIRUBIN, TOTAL (test code = 0.4 MG/DL 2206) ALKALINE PHOSPHATASE (test 79 U/L code = 2204) AST (test code = 2218) 36 U/L ALT (test code = 2219) 45 U/L LIPID [id number] 00:00:00 Test Item Value Reference Range Interpretation Comments CHOLESTEROL (test code = 2210) 166 MG/DL TRIGLYCERIDES (test code = 2232) 85 MG/DL HDL CHOLESTEROL (test code = 2220) 61 MG/DL CALC LDL CHOL (test code = 2237) 88 MG/DL RISK RATIO LDL/HDL (test code = 1.44 RATIO 2238) CBC W/AUTO [id number] 00:00:00 Test Item Value Reference Range Interpretation [...] code = 1015) 278 K/UL CBC W/AUTO [id number] 00:00:00 Test Item Value Reference Range Interpretation [...] (test code = 1015) 278 K/UL HEMOGLOBIN [id number] 00:00:00 Test Item Value Reference Range Interpretation Comments HEMOGLOBIN A1c (test code = 76275) 5.4 % HEMOGLOBIN [id number] 00:00:00 Test Item Value Reference Range Interpretation Comments HEMOGLOBIN A1c (test code = 97971) 5.4 % [id number] 00:00:00 Test Item Value Reference Range Interpretation Comments TSH (test code = 2821) 2.1 UIU/ML [id number] 00:00:00 Test Item Value Reference Range Interpretation Comments TSH (test code = 2821) 2.1 UIU/ML COMPREHENSIVE METABOLIC [id number] 00:00:00 Test Item Value Reference Range Interpretation Comments GLUCOSE (test code = 2217) 88 MG/DL BUN (test code = 2208) 9 MG/DL CREATININE (test code = 2214) 0.71 MG/DL eGFR AMER. (test code 131 ML/MIN/1.73 = 78923) eGFR NON- AMER. (test 113 ML/MIN/1.73 code = 49927) CALC BUN/CREAT (test code = 13 RATIO [...] code = 2219) 45 U/L COMPREHENSIVE METABOLIC [id number] 00:00:00 Test Item Value Reference Range Interpretation Comments GLUCOSE (test code = 2217) 88 MG/DL BUN (test code = 2208) 9 MG/DL CREATININE (test code = 2214) 0.71 MG/DL eGFR AMER. (test code 131 ML/MIN/1.73 = 74029) eGFR NON- AMER. (test 113 ML/MIN/1.73 code = 57522) CALC BUN/CREAT (test code = 13 RATIO 2235) SODIUM (test code = 2231) 144 MEQ/L POTASSIUM (test code = 2228) 4.3 MEQ/L CHLORIDE (test code = 2215) 103 MEQ/L CARBON DIOXIDE (test code = 27 MEQ/L 220) CALCIUM (test code = 2209) [...] (test code = 2219) 45 U/L LIPID [id number] 00:00:00 Test Item Value Reference Range Interpretation Comments CHOLESTEROL (test code = 2210) 166 MG/DL TRIGLYCERIDES (test code = 2232) 85 MG/DL HDL CHOLESTEROL (test code = 2220) 61 MG/DL CALC LDL CHOL (test code = 2237) 88 MG/DL RISK RATIO LDL/HDL (test code = 1.44 RATIO 2238) LIPID [id number] 00:00:00 Test Item Value Reference Range Interpretation Comments CHOLESTEROL (test code = 2210) 166 MG/DL TRIGLYCERIDES (test code = 2232) 85 MG/DL HDL CHOLESTEROL (test code = 2220) 61 MG/DL CALC LDL CHOL (test code = 2237) 88 MG/DL RISK RATIO LDL/HDL (test code = 1.44 RATIO 2238) CBC W/AUTO [id number] 00:00:00 Test Item Value Reference Range Interpretation [...] code = 1015) 278 K/UL CBC W/AUTO [id number] 00:00:00 Test Item Value Reference Range Interpretation [...] code = 1015) 278 K/UL CBC W/AUTO [id number] 00:00:00 Test Item Value Reference Range Interpretation [...] (test code = 1015) 278 K/UL HEMOGLOBIN [id number] 00:00:00 Test Item Value Reference Range Interpretation Comments HEMOGLOBIN A1c (test code = 09918) 5.4 % HEMOGLOBIN [id number] 00:00:00 Test Item Value Reference Range Interpretation Comments HEMOGLOBIN A1c (test code = 47188) 5.4 % HEMOGLOBIN [id number] 00:00:00 Test Item Value Reference Range Interpretation Comments HEMOGLOBIN A1c (test code = 66759) 5.4 % [id number] 00:00:00 Test Item Value Reference Range Interpretation Comments TSH (test code = 2821) 2.1 UIU/ML [id number] 00:00:00 Test Item Value Reference Range Interpretation Comments TSH (test code = 2821) 2.1 UIU/ML [id number] 00:00:00 Test Item Value Reference Range Interpretation Comments TSH (test code = 2821) 2.1 UIU/ML COMPREHENSIVE METABOLIC [id number] 00:00:00 Test Item Value Reference Range Interpretation Comments GLUCOSE (test code = 2217) 88 MG/DL BUN (test code = 2208) 9 MG/DL CREATININE (test code = 2214) 0.71 MG/DL eGFR AMER. (test code 131 ML/MIN/1.73 = 87426) eGFR NON- AMER. (test 113 ML/MIN/1.73 code = 34866) CALC BUN/CREAT (test code = 13 RATIO 2235) SODIUM (test code = 2231) 144 MEQ/L POTASSIUM (test code = 2228) 4.3 MEQ/L CHLORIDE (test code = 2215) 103 MEQ/L CARBON DIOXIDE (test code = 27 MEQ/L 220) CALCIUM (test code = 2209) [...] code = 2219) 45 U/L COMPREHENSIVE METABOLIC [id number] 00:00:00 Test Item Value Reference Range Interpretation Comments GLUCOSE (test code = 2217) 88 MG/DL BUN (test code = 2208) 9 MG/DL CREATININE (test code = 2214) 0.71 MG/DL eGFR AMER. (test code 131 ML/MIN/1.73 = 57137) eGFR NON- AMER. (test 113 ML/MIN/1.73 code = 88561) CALC BUN/CREAT (test code = 13 RATIO [...] code = 2219) 45 U/L COMPREHENSIVE METABOLIC [id number] 00:00:00 Test Item Value Reference Range Interpretation Comments GLUCOSE (test code = 2217) 88 MG/DL BUN (test code = 2208) 9 MG/DL CREATININE (test code = 2214) 0.71 MG/DL eGFR AMER. (test code 131 ML/MIN/1.73 = 28345) eGFR NON- AMER. (test 113 ML/MIN/1.73 code = 77558) CALC BUN/CREAT (test code = 13 RATIO [...] (test code = 2219) 45 U/L LIPID [id number] 00:00:00 Test Item Value Reference Range Interpretation Comments CHOLESTEROL (test code = 2210) 166 MG/DL TRIGLYCERIDES (test code = 2232) 85 MG/DL HDL CHOLESTEROL (test code = 2220) 61 MG/DL CALC LDL CHOL (test code = 2237) 88 MG/DL RISK RATIO LDL/HDL (test code = 1.44 RATIO 2238) LIPID [id number] 00:00:00 Test Item Value Reference Range Interpretation Comments CHOLESTEROL (test code = 2210) 166 MG/DL TRIGLYCERIDES (test code = 2232) 85 MG/DL HDL CHOLESTEROL (test code = 2220) 61 MG/DL CALC LDL CHOL (test code = 2237) 88 MG/DL RISK RATIO LDL/HDL (test code = 1.44 RATIO 2238) LIPID [id number] 00:00:00 Test Item Value Reference Range Interpretation Comments CHOLESTEROL (test code = 2210) 166 MG/DL TRIGLYCERIDES (test code = 2232) 85 MG/DL HDL CHOLESTEROL (test code = 2220) 61 MG/DL CALC LDL CHOL (test code = 2237) 88 MG/DL RISK RATIO LDL/HDL (test code = 1.44 RATIO 2238) CBC W/AUTO [id number] 00:00:00 Test Item Value Reference Range Interpretation [...] code = 1015) 278 K/UL CBC W/AUTO [id number] 00:00:00 Test Item Value Reference Range Interpretation [...] code = 1015) 278 K/UL CBC W/AUTO [id number] 00:00:00 Test Item Value Reference Range Interpretation [...] (test code = 1015) 278 K/UL HEMOGLOBIN [id number] 00:00:00 Test Item Value Reference Range Interpretation Comments HEMOGLOBIN A1c (test code = 64778) 5.4 % HEMOGLOBIN [id number] 00:00:00 Test Item Value Reference Range Interpretation Comments HEMOGLOBIN A1c (test code = 09395) 5.4 % HEMOGLOBIN [id number] 00:00:00 Test Item Value Reference Range Interpretation Comments HEMOGLOBIN A1c (test code = 67593) 5.4 % [id number] 00:00:00 Test Item Value Reference Range Interpretation Comments TSH (test code = 2821) 2.1 UIU/ML [id number] 00:00:00 Test Item Value Reference Range Interpretation Comments TSH (test code = 2821) 2.1 UIU/ML [id number] 00:00:00 Test Item Value Reference Range Interpretation Comments TSH (test code = 2821) 2.1 UIU/ML CBC W/AUTO [id number] 00:00:00 Test Item Value Reference Range Interpretation [...] code = 1015) 278 K/UL CBC W/AUTO [id number] 00:00:00 Test Item Value Reference Range Interpretation [...] (test code = 1015) 278 K/UL HEMOGLOBIN [id number] 00:00:00 Test Item Value Reference Range Interpretation Comments HEMOGLOBIN A1c (test code = 86558) 5.4 % COMPREHENSIVE METABOLIC [id number] 00:00:00 Test Item Value Reference Range Interpretation Comments GLUCOSE (test code = 2217) 88 MG/DL BUN (test code = 2208) 9 MG/DL CREATININE (test code = 2214) 0.71 MG/DL eGFR AMER. (test code 131 ML/MIN/1.73 = 22832) eGFR NON- AMER. (test 113 ML/MIN/1.73 code = 49493) CALC BUN/CREAT (test code = 13 RATIO 2235) SODIUM (test code = 2231) 144 MEQ/L POTASSIUM (test code = 2228) 4.3 MEQ/L CHLORIDE (test code = 2215) 103 MEQ/L CARBON DIOXIDE (test code = 27 MEQ/L 220) CALCIUM (test code = 2209) 9.7 MG/DL PROTEIN, TOTAL (test code = 8.0 G/DL 2228) ALBUMIN (test code = 2201) 4.4 G/DL CALC GLOBULIN (test code = 3.6 G/DL 2240) CALC A/G RATIO (test code = 1.2 RATIO 2233) BILIRUBIN, TOTAL (test code = 0.4 MG/DL 2207) ALKALINE PHOSPHATASE (test 79 U/L code = 2204) AST (test code = 2218) 36 U/L ALT (test code = 2219) 45 U/L HEMOGLOBIN [id number] 00:00:00 Test Item Value Reference Range Interpretation Comments HEMOGLOBIN A1c (test code = 14102) 5.4 % COMPREHENSIVE METABOLIC [id number] 00:00:00 Test Item Value Reference Range Interpretation Comments GLUCOSE (test code = 2217) 88 MG/DL BUN (test code = 2208) 9 MG/DL CREATININE (test code = 2214) 0.71 MG/DL eGFR AMER. (test code 131 ML/MIN/1.73 = 07595) eGFR NON- AMER. (test 113 ML/MIN/1.73 code = 15842) CALC BUN/CREAT (test code = 13 RATIO [...] ALT (test code = 2219) 45 U/L [id number] 00:00:00 Test Item Value Reference Range Interpretation Comments TSH (test code = 2821) 2.1 UIU/ML LIPID [id number] 00:00:00 Test Item Value Reference Range Interpretation Comments CHOLESTEROL (test code = 2210) 166 MG/DL TRIGLYCERIDES (test code = 2232) 85 MG/DL HDL CHOLESTEROL (test code = 2220) 61 MG/DL CALC LDL CHOL (test code = 2237) 88 MG/DL RISK RATIO LDL/HDL (test code = 1.44 RATIO 2238) LIPID [id number] 00:00:00 Test Item Value Reference Range Interpretation Comments CHOLESTEROL (test code = 2210) 166 MG/DL TRIGLYCERIDES (test code = 2232) 85 MG/DL HDL CHOLESTEROL (test code = 2220) 61 MG/DL CALC LDL CHOL (test code = 2237) 88 MG/DL RISK RATIO LDL/HDL (test code = 1.44 RATIO 2238) [id number] 00:00:00 Test Item Value Reference Range Interpretation Comments TSH (test code = 2821) 2.1 UIU/ML CBC W/AUTO [id number] 00:00:00 Test Item Value Reference Range Interpretation [...] code = 1015) 278 K/UL CBC W/AUTO [id number] 00:00:00 Test Item Value Reference Range Interpretation [...] code = 1015) 278 K/UL CBC W/AUTO [id number] 00:00:00 Test Item Value Reference Range Interpretation [...] (test code = 1015) 278 K/UL HEMOGLOBIN [id number] 00:00:00 Test Item Value Reference Range Interpretation Comments HEMOGLOBIN A1c (test code = 60147) 5.4 % HEMOGLOBIN [id number] 00:00:00 Test Item Value Reference Range Interpretation Comments HEMOGLOBIN A1c (test code = 77437) 5.4 % HEMOGLOBIN [id number] 00:00:00 Test Item Value Reference Range Interpretation Comments HEMOGLOBIN A1c (test code = 15847) 5.4 % [id number] 00:00:00 Test Item Value Reference Range Interpretation Comments TSH (test code = 2821) 2.1 UIU/ML [id number] 00:00:00 Test Item Value Reference Range Interpretation Comments TSH (test code = 2821) 2.1 UIU/ML [id number] 00:00:00 Test Item Value Reference Range Interpretation Comments TSH (test code = 2821) 2.1 UIU/ML COMPREHENSIVE METABOLIC [id number] 00:00:00 Test Item Value Reference Range Interpretation Comments GLUCOSE (test code = 2217) 88 MG/DL BUN (test code = 2208) 9 MG/DL CREATININE (test code = 2214) 0.71 MG/DL eGFR AMER. (test code 131 ML/MIN/1.73 = 12456) eGFR NON- AMER. (test 113 ML/MIN/1.73 code = 05651) CALC BUN/CREAT (test code = 13 RATIO 2235) SODIUM (test code = 2231) 144 MEQ/L POTASSIUM (test code = 2228) 4.3 MEQ/L CHLORIDE (test code = 2215) 103 MEQ/L CARBON DIOXIDE (test code = 27 MEQ/L 2206) CALCIUM (test code = 2209) 9.7 MG/DL PROTEIN, TOTAL (test code = 8.0 G/DL 222) ALBUMIN (test code = 2201) 4.4 G/DL CALC GLOBULIN (test code = 3.6 G/DL 2240) CALC A/G RATIO (test code = 1.2 RATIO 2234) BILIRUBIN, TOTAL (test code = 0.4 MG/DL 2206) ALKALINE PHOSPHATASE (test 79 U/L code = 2204) AST (test code = 2218) 36 U/L ALT (test code = 2219) 45 U/L COMPREHENSIVE METABOLIC [id number] 00:00:00 Test Item Value Reference Range Interpretation Comments GLUCOSE (test code = 2217) 88 MG/DL BUN (test code = 2208) 9 MG/DL CREATININE (test code = 2214) 0.71 MG/DL eGFR AMER. (test code 131 ML/MIN/1.73 = 24498) eGFR NON- AMER. (test 113 ML/MIN/1.73 code = 69758) CALC BUN/CREAT (test code = 13 RATIO [...] (test code = 2219) 45 U/L LIPID [id number] 00:00:00 Test Item Value Reference Range Interpretation Comments CHOLESTEROL (test code = 2210) 166 MG/DL TRIGLYCERIDES (test code = 2232) 85 MG/DL HDL CHOLESTEROL (test code = 2220) 61 MG/DL CALC LDL CHOL (test code = 2237) 88 MG/DL RISK RATIO LDL/HDL (test code = 1.44 RATIO 2238) LIPID [id number] 00:00:00 Test Item Value Reference Range Interpretation Comments CHOLESTEROL (test code = 2210) 166 MG/DL TRIGLYCERIDES (test code = 2232) 85 MG/DL HDL CHOLESTEROL (test code = 2220) 61 MG/DL CALC LDL CHOL (test code = 2237) 88 MG/DL RISK RATIO LDL/HDL (test code = 1.44 RATIO 2238) CBC W/AUTO [id number] 00:00:00 Test Item Value Reference Range Interpretation [...] code = 1015) 278 K/UL CBC W/AUTO [id number] 00:00:00 Test Item Value Reference Range Interpretation [...] code = 1015) 278 K/UL CBC W/AUTO [id number] 00:00:00 Test Item Value Reference Range Interpretation [...] (test code = 1015) 278 K/UL HEMOGLOBIN [id number] 00:00:00 Test Item Value Reference Range Interpretation Comments HEMOGLOBIN A1c (test code = 35233) 5.4 % HEMOGLOBIN [id number] 00:00:00 Test Item Value Reference Range Interpretation Comments HEMOGLOBIN A1c (test code = 52071) 5.4 % HEMOGLOBIN [id number] 00:00:00 Test Item Value Reference Range Interpretation Comments HEMOGLOBIN A1c (test code = 55624) 5.4 % [id number] 00:00:00 Test Item Value Reference Range Interpretation Comments TSH (test code = 2821) 2.1 UIU/ML [id number] 00:00:00 Test Item Value Reference Range Interpretation Comments TSH (test code = 2821) 2.1 UIU/ML [id number] 00:00:00 Test Item Value Reference Range Interpretation Comments TSH (test code = 2821) 2.1 UIU/ML COMPREHENSIVE METABOLIC [id number] 00:00:00 Test Item Value Reference Range Interpretation Comments GLUCOSE (test code = 2217) 88 MG/DL BUN (test code = 2208) 9 MG/DL CREATININE (test code = 2214) 0.71 MG/DL eGFR AMER. (test code 131 ML/MIN/1.73 = 41181) eGFR NON- AMER. (test 113 ML/MIN/1.73 code = 74634) CALC BUN/CREAT (test code = 13 RATIO [...] code = 2219) 45 U/L COMPREHENSIVE METABOLIC [id number] 00:00:00 Test Item Value Reference Range Interpretation Comments GLUCOSE (test code = 2217) 88 MG/DL BUN (test code = 2208) 9 MG/DL CREATININE (test code = 2214) 0.71 MG/DL eGFR AMER. (test code 131 ML/MIN/1.73 = 27592) eGFR NON- AMER. (test 113 ML/MIN/1.73 code = 69767) CALC BUN/CREAT (test code = 13 RATIO [...] (test code = 2219) 45 U/L LIPID [id number] 00:00:00 Test Item Value Reference Range Interpretation Comments CHOLESTEROL (test code = 2210) 166 MG/DL TRIGLYCERIDES (test code = 2232) 85 MG/DL HDL CHOLESTEROL (test code = 2220) 61 MG/DL CALC LDL CHOL (test code = 2237) 88 MG/DL RISK RATIO LDL/HDL (test code = 1.44 RATIO 2238) LIPID [id number] 00:00:00 Test Item Value Reference Range Interpretation Comments CHOLESTEROL (test code = 2210) 166 MG/DL TRIGLYCERIDES (test code = 2232) 85 MG/DL HDL CHOLESTEROL (test code = 2220) 61 MG/DL CALC LDL CHOL (test code = 2237) 88 MG/DL RISK RATIO LDL/HDL (test code = 1.44 RATIO 2238) CBC W/AUTO [id number] 00:00:00 Test Item Value Reference Range Interpretation [...] code = 1015) 278 K/UL CBC W/AUTO [id number] 00:00:00 Test Item Value Reference Range Interpretation [...] code = 1015) 278 K/UL CBC W/AUTO [id number] 00:00:00 Test Item Value Reference Range Interpretation [...] (test code = 1015) 278 K/UL HEMOGLOBIN [id number] 00:00:00 Test Item Value Reference Range Interpretation Comments HEMOGLOBIN A1c (test code = 72025) 5.4 % HEMOGLOBIN [id number] 00:00:00 Test Item Value Reference Range Interpretation Comments HEMOGLOBIN A1c (test code = 08815) 5.4 % HEMOGLOBIN [id number] 00:00:00 Test Item Value Reference Range Interpretation Comments HEMOGLOBIN A1c (test code = 56236) 5.4 % [id number] 00:00:00 Test Item Value Reference Range Interpretation Comments TSH (test code = 2821) 2.1 UIU/ML [id number] 00:00:00 Test Item Value Reference Range Interpretation Comments TSH (test code = 2821) 2.1 UIU/ML [id number] 00:00:00 Test Item Value Reference Range Interpretation Comments TSH (test code = 2821) 2.1 UIU/ML COMPREHENSIVE METABOLIC [id number] 00:00:00 Test Item Value Reference Range Interpretation Comments GLUCOSE (test code = 2217) 88 MG/DL BUN (test code = 2208) 9 MG/DL CREATININE (test code = 2214) 0.71 MG/DL eGFR AMER. (test code 131 ML/MIN/1.73 = 41522) eGFR NON- AMER. (test 113 ML/MIN/1.73 code = 61364) CALC BUN/CREAT (test code = 13 RATIO [...] 224) CALC A/G RATIO (test code = 1.2 RATIO 2234) BILIRUBIN, TOTAL (test code = 0.4 MG/DL 2206) ALKALINE PHOSPHATASE (test 79 U/L code = 2204) AST (test code = 2218) 36 U/L ALT (test code = 2219) 45 U/L COMPREHENSIVE METABOLIC [id number] 00:00:00 Test Item Value Reference Range Interpretation Comments GLUCOSE (test code = 2217) 88 MG/DL BUN (test code = 2208) 9 MG/DL CREATININE (test code = 2214) 0.71 MG/DL eGFR AMER. (test code 131 ML/MIN/1.73 = 22277) eGFR NON- AMER. (test 113 ML/MIN/1.73 code = 24199) CALC BUN/CREAT (test code = 13 RATIO 2235) SODIUM (test code = 2231) 144 MEQ/L POTASSIUM (test code = 2228) 4.3 MEQ/L CHLORIDE (test code = 2215) 103 MEQ/L CARBON DIOXIDE (test code = 27 MEQ/L 220) CALCIUM (test code = 2209) [...] (test code = 2219) 45 U/L LIPID [id number] 00:00:00 Test Item Value Reference Range Interpretation Comments CHOLESTEROL (test code = 2210) 166 MG/DL TRIGLYCERIDES (test code = 2232) 85 MG/DL HDL CHOLESTEROL (test code = 2220) 61 MG/DL CALC LDL CHOL (test code = 2237) 88 MG/DL RISK RATIO LDL/HDL (test code = 1.44 RATIO 2238) LIPID [id number] 00:00:00 Test Item Value Reference Range Interpretation Comments CHOLESTEROL (test code = 2210) 166 MG/DL TRIGLYCERIDES (test code = 2232) 85 MG/DL HDL CHOLESTEROL (test code = 2220) 61 MG/DL CALC LDL CHOL (test code = 2237) 88 MG/DL RISK RATIO LDL/HDL (test code = 1.44 RATIO 2238) CBC W/AUTO [id number] 00:00:00 Test Item Value Reference Range Interpretation [...] code = 1015) 278 K/UL CBC W/AUTO [id number] 00:00:00 Test Item Value Reference Range Interpretation [...] code = 1015) 278 K/UL CBC W/AUTO [id number] 00:00:00 Test Item Value Reference Range Interpretation [...] (test code = 1015) 278 K/UL HEMOGLOBIN [id number] 00:00:00 Test Item Value Reference Range Interpretation Comments HEMOGLOBIN A1c (test code = 22122) 5.4 % HEMOGLOBIN [id number] 00:00:00 Test Item Value Reference Range Interpretation Comments HEMOGLOBIN A1c (test code = 62960) 5.4 % HEMOGLOBIN [id number] 00:00:00 Test Item Value Reference Range Interpretation Comments HEMOGLOBIN A1c (test code = 86858) 5.4 % [id number] 00:00:00 Test Item Value Reference Range Interpretation Comments TSH (test code = 2821) 2.1 UIU/ML [id number] 00:00:00 Test Item Value Reference Range Interpretation Comments TSH (test code = 2821) 2.1 UIU/ML [id number] 00:00:00 Test Item Value Reference Range Interpretation Comments TSH (test code = 2821) 2.1 UIU/ML
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
[2022-05-30 06:12] VITALS: BP 108/74; TEMP 98.1; O2SAT 100
--- NOTE | 2022-05-30 18:31 | RAD REPORT ---
EXAM DESCRIPTION: RAD - Foot Right 3 View - 05/29/2022 10:54 pm CLINICAL HISTORY: 36 years, Female, PAIN COMPARISON: None. FINDINGS: 3 X-ray views of the right foot (Frontal, lateral and oblique views) were performed. No acute bony injuries were demonstrated. No gross articular or soft tissue abnormality is identifi ed. There are no gross intraosseous lesions. No periosteal reaction were seen. IMPRESSION: No acute bony injuries were demonstrated. Electronically signed by: Juan Richardson MD 05/29/2022 11:08 PM CDT Due to temporary technical issues with the PACS/Fluency reporting system, reports are being signed by the in house radiologists without review as a courtesy to insure prompt reporting. The interpreting radiologist is fully responsible for the content of the report.
--- NOTE | 2022-05-30 18:38 | RAD REPORT ---
EXAM DESCRIPTION: CT - Head C Spine Mpr Wo Con - 05/30/2022 6:45 am CLINICAL HISTORY: Fall, pain to back of head. TECHNIQUE: Noncontrast CT through the head was performed. Axial, coronal, and sagittal reconstructio ns were created and sent to PACS. CT of the cervical spine was performed without contrast. Axial, coronal, and sagittal reconstructions were created and sent to PACS. These exams were performed according to our departmental dose-optimization program which includes use of Automated Exposure Control, adjustment of the mA and/or kV according to patient size and/or use o f iterative reconstruction technique. COMPARISON: None. FINDINGS: CT Head: Mild streak artifact adjacent to the calvarium. There is no intra-axial or extra-axial bleed seen. Th ere is no mass or mass effect. The ventricles are normal in size, shape, and configuration. The orbit al contents appear unremarkable. The visualized paranasal sinuses and mastoid air cells are clear. No acute fracture is identified. CT cervical spine: No acute osseous abnormality identified. Vertebral body height and alignment are maintained. No atlan todental interval widening. Atlantoaxial alignment is maintained. The facet joints are well aligned. The posterior elements are intact. The occipital condyles are well aligned with the C1 lateral masses . The transverse foramina are intact. C2-C3: No significant central canal or neuroforaminal narrowing. C3-C4: No significant central canal or neuroforaminal narrowing. C4-C5: No significant central canal or neuroforaminal narrowing. C5-C6: Mild disc height loss. Small posterior osteophytes. Mild right-sided neuroforaminal narrowing due to uncinate hypertrophy. No significant central canal or left-sided neuroforaminal narrowing. C6-C7: No significant central canal or neuroforaminal narrowing. Paraspinal soft tissues: No prevertebral soft tissue swelling. No evidence of epidural hematoma. No a cute findings in the demonstrated portions of the lung apices. IMPRESSION: 1. No acute intracranial abnormality identified. 2. No acute osseous abnormality identified in the cervical spine. Electronically signed by: Rayne Boyd MD 05/29/2022 11:20 PM CDT Due to temporary technical issues with the PACS/Fluency reporting system, reports are being signed by the in house radiologists without review as a courtesy to insure prompt reporting. The interpreting radiologist is fully responsible for the content of the report.
== END 2022-05-30 00:35 | disposition home or self-care (01) ==
LOC: ER 21:55
DX: S00.03XA Contusion of scalp, initial encounter (principal); S93.601A Unspecified sprain of right foot, initial encounter; S97.81XA Crushing injury of right foot, initial encounter; W18.30XA Fall on same level, unspecified, initial encounter
CPT/HCPCS: 70450; 72125; 81003; 81025; 99284; Q0169

== ENCOUNTER 2022-08-14 22:17 | Emergency (ER) | payer SELFPAY ==
--- OUTSIDE RECORDS SUMMARY | 2022-08-14 22:30 | XMS REPORT | Continuity of Care Document ---
:1985 Author Organization [facility] t Address [address] [place] [place] [address] Care Team Providers Name Role Phone Abhijit Mccallum [facility], [facility] Primary Care P hysician TEE HA Attending Clinician Unavailable Tee Cardoza Attending Clinician Doctor Unassigned, [place] Attending Clinician Unavailable Radha Patel DO Attending [...] different from the original. 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 Need for Need for Disease Active [...] Active Univers ALLERGIE Class ity of [facility] [place] Social History Social Habit Start Date Stop Date Quantity Comments Source History SDOH University o f Alcohol Std [facility] Drinks [facility] History SDOH University o f Alcohol Binge [facility] Exposure to Not sure University of SARS-CoV-2 [place] [facility] (event) Branch History SDOH University o f Alcohol Frequency [facility] Alcohol intake 2021-06-08 2021-06-08 Current drinker Unive rsity of 00:00:00 00:00:00 of alcohol [facility] (finding) Branch Tobacco use and 2012-07-01 2012-07-01 Never used Universit y of exposure 00:00:00 00:00:00 [facility] Alcohol Comment 2012-07-01 2012-07-01 1 x per month Univer sity of 00:00:00 00:00:00 [facility] Sex [birth year] At [birth year] Universit y of 00:00:00 00:00:00 [facility] Smoking Status Start Date Stop Date Source Never smoker [facility] Medications Ordered Filled Start Stop Current [...] 2021- No Unknown 2-17 00:00: 00 Dose 2021- [...] 00:00: 00 TAKE 5 ML 2022-1 No [id number] EVERY 4 TO 0-10 6 HOURS 00:00: [...] Branch 06/08/21 at 1700, DAVID ibuprofen Yes [id number] 800mg Take 1 Univers 800 mg 3-26 tablet by ity of tablet 00:00: mouth [place] 00 every 8 Medical (eight) Branch hours as needed for Pain (scale 4-6). methocarbam Yes [id number] 750mg Take 1 Univers oL 750 mg [...] Indication s: acute pain naproxen 0 Yes [id number] 500mg Take 1 Un sasha 500 mg 7-26 tablet by ity of tablet 00:00: mouth 2 00 (two) Medical times Branch daily with meals. naproxen 0 Yes [id number] 500mg Take 1 Un sasha 500 mg 7-26 tablet by ity of tablet 00:00: mouth 2 00 (two) Medical times Branch daily with meals. naproxen 0 Yes [id number] 500mg Take 1 Un sasha 500 mg 7-26 tablet by ity of tablet 00:00: mouth 2 [place] 00 (two) Medical times Branch daily with meals. amoxicillin 2020- No [id number] 875mg Take 1 Univers 875 mg 7-26 [...] with Medical breakfast. Branch levonorgest 2012-03 Yes [id number] 1{devic 1 Device Univers rel 2-03 e} by ity of (MIRENA) 20 23:49: Intrauteri [place] mcg/24 hour 43 ne route Medi elkin (5 years) once now. Branc h IUD levonorgest 2012-03 Yes [id number] 1{devic 1 Device Univers rel 2-03 e} by ity of (MIRENA) 20 23:49: Intrauteri [place] mcg/24 hour 43 ne route Medi elkin (5 years) once now. Branc h IUD levonorgest 2012-03 Yes [id number] 1{devic 1 Device Univers rel 2-03 e} by ity of (MIRENA) 20 17:49: Intrauteri [place] mcg/24 hour 43 ne route Medi elkin (5 years) once now. Branc h IUD levonorgest 2012-03 Yes [id number] 1{devic 1 Device Univers rel 2-03 e} by ity of (MIRENA) 20 17:49: Intrauteri [place] mcg/24 hour 43 ne route Medi elkin (5 years) once now. Branc h IUD Immunizations Ordered Filled Immunization Date Status Comments Sourc e Immunization Name Name Influenza Virus 2008-05-03 Completed Universit y of Vaccine 00:00:00 [facility] Influenza Virus 2008-05-03 Completed Universit y of Vaccine 00:00:00 [facility] Influenza Virus 2008-05-03 Completed Universit y of Vaccine 00:00:00 [facility] Influenza Virus 2008-05-03 Completed Universit y of Vaccine 00:00:00 [facility] Rubella 2007-10-26 Completed University of 00:00:00 [facility] Rubella 2007-10-26 Completed University of 00:00:00 [place] [facility] Rubella 2007-10-26 Completed University of 00:00:00 [facility] Rubella 2007-10-26 Completed University of 00:00:00 [facility] Td 1998-03-16 Completed University of 00:00:00 [facility] Td 1998-03-16 Completed University of 00:00:00 [facility] Td 1998-03-16 Completed University of 00:00:00 [facility] Td 1998-03-16 Completed University of 00:00:00 [facility] [place] [facility] Vital Signs Vital Name Observation Time Observation Value Comments Source Systolic blood 2021-06-08 21:37:54 107 mm[Hg] Univer sity of pressure [facility] Diastolic blood 2021-06-08 21:37:54 74 mm[Hg] Unive rsity of pressure [facility] Heart rate 2021-06-08 21:37:54 79 /min Universi ty of [facility] Body temperature 2021-06-08 21:37:54 37.06 [place] [facility] Respiratory rate 2021-06-08 21:37:54 18 /min [facility] O[facility] saturation in 2021-06-08 21:37:54 98 /min University of Arterial blood by [facility] Pulse oximetry Branch Body weight 2021-06-08 20:33:00 90.719 kg Universi ty [facility] BMI 2021-06-08 20:33:00 34.33 kg/m2 Universi ty [facility] Systolic blood 2020-10-08 21:31:00 116 mm[Hg] Univer sity of pressure [facility] Diastolic blood 2020-10-08 21:31:00 69 mm[Hg] Unive rsity of pressure [facility] Heart rate 2020-10-08 21:31:00 59 /min Universi ty of [facility] Body temperature 2020-10-08 21:31:00 37.28 [place] Univ ersity of [facility] Respiratory rate 2020-10-08 21:31:00 16 /min Univ ersity of [facility] Body height 2020-10-08 21:31:00 162.6 cm Universi ty of [facility] Body weight 2020-10-08 21:31:00 90.719 kg Universi ty [facility] BMI 2020-10-08 21:31:00 34.33 kg/m2 [facility] Medical Branch Oxygen saturation in 2020-10-08 21:31:00 94 /min [facility] blood by [facility] Pulse oximetry Branch BP Systolic 2022-03-26 17:24:00 [...] 2020-10-08 21:38:00 [facility] CONSENT/REFUSAL FOR 2020-10-08 21:18:59 Doctor Unassigned, [facility] AND Name Medical Branch TREATMENT NOTICE OF PRIVACY 2020-10-08 21:18:38 Doctor Unassigned, No Univ ersity of [place] PRACTICES Name Medical Branch Plan of Care Planned Activity Planned Date Details Comments Source Goal Plan of Care Note [code = 31845-5] Goal Plan of Care Note [code = 83160-6] Goal Plan of Care Note [code = 43637-1] Goal Plan of Care Note [code = 25719-0] Goal Plan of Care Note [code = 64113-7] Goal Plan of Care Note [code = 55289-7] Goal Plan of Care Note [code = 92414-6] Goal Plan of Care Note [code = 12802-8] Goal Plan of Care Note [code = 61505-5] Goal Plan of Care Note [code = 49630-2] Goal Plan of Care Note [code = 23078-8] Goal Plan of Care Note [code = 74591-2] Goal Plan of Care Note [code = 26063-5] Goal Plan of Care Note [code = 22783-3] Goal Plan of Care Note [code = 67559-5] Goal Plan of Care Note [code = 64295-3] Goal Plan of Care Note [code = 24952-7] Goal Plan of Care Note [code = 32715-4] Goal Plan of Care Note [code = 87899-8] Goal Plan of Care Note [code = 54968-8] Goal Plan of Care Note [code = 23910-8] Goal Plan of Care Note [code = 48371-0] Goal Plan of Care Note [code = 69977-2] Goal Plan of Care Note [code = 92624-2] Goal Plan of Care Note [code = 91042-5] Goal Plan of Care Note [code = 34614-5] Goal Plan of Care Note [code = 21855-3] Goal Plan of Care Note [code = 24162-2] Goal Plan of Care Note [code = 91809-8] Goal Plan of Care Note [code = 18709-7] Goal Plan of Care Note [code = 12804-0] Goal Plan of Care Note [code = 85175-1] Goal Plan of Care Note [code = 12227-6] Goal Plan of Care Note [code = 87649-1] Goal Plan of Care Note [code = 11504-9] Goal Plan of Care Note [code = 02351-8] Goal Plan of Care Note [code = 16388-5] Goal Plan of Care Note [code = 89962-0] Goal Plan of Care Note [code = 89069-3] Goal Plan of Care Note [code = 84434-0] Goal Plan of Care Note [code = 43189-2] Goal Plan of Care Note [code = 86472-0] Goal Plan of Care Note [code = 56858-9] Goal Plan of Care Note [code = 78389-5] Goal Plan of Care Note [code = 64152-9] Goal Plan of Care Note [code = 78119-7] Goal Plan of Care Note [code = 44300-8] Goal Plan of Care Note [code = 45520-0] Goal Plan of Care Note [code = 12691-5] Goal Plan of Care Note [code = 81187-6] Goal Plan of Care Note [code = 33804-2] Goal Plan of Care Note [code = 54515-7] Goal Plan of Care Note [code = 17952-8] Goal Plan of Care Note [code = 59009-9] Goal Plan of Care Note [code = 08488-8] Goal Plan of Care Note [code = 69196-1] Goal Plan of Care Note [code = 08488-4] Goal Plan of Care Note [code = 66464-6] Goal Plan of Care Note [code = 71792-6] Goal Plan of Care Note [code = 39278-6] Goal Plan of Care Note [code = 28340-3] Goal Plan of Care Note [code = 24376-9] Goal Plan of Care Note [code = 73840-9] Goal Plan of Care Note [code = 45673-5] Goal Plan of Care Note [code = 79878-3] Goal Plan of Care Note [code = 20035-8] Goal Plan of Care Note [code = 33781-5] Goal Plan of Care Note [code = 45128-7] Goal Plan of Care Note [code = 44449-8] Goal Plan of Care Note [code = 64744-7] Goal Plan of Care Note [code = 94490-6] Goal Plan of Care Note [code = 18057-6] Goal Plan of Care Note [code = 36064-3] Goal Plan of Care Note [code = 49436-2] Goal Plan of Care Note [code = 05062-7] Goal Plan of Care Note [code = 15994-7] Goal Plan of Care Note [code = 14999-9] Goal Plan of Care Note [code = 83020-7] Goal Plan of Care Note [code = 41024-3] Goal Plan of Care Note [code = 38386-8] Goal Plan of Care Note [code = 18678-6] Goal Plan of Care Note [code = 75540-8] Goal Plan of Care Note [code = 29010-2] Goal Plan of Care Note [code = 97991-6] Goal Plan of Care Note [code = 69867-4] Goal Plan of Care Note [code = 73128-8] Goal Plan of Care Note [code = 82672-4] Goal Plan of Care Note [code = 12306-5] Goal Plan of Care Note [code = 90275-6] Goal Plan of Care Note [code = 67553-0] Goal Plan of Care Note [code = 59790-3] Goal Plan of Care Note [code = 53059-9] Goal Plan of Care Note [code = 27739-8] Goal Plan of Care Note [code = 83493-6] Goal Plan of Care Note [code = 50298-3] Goal Plan of Care Note [code = 86637-9] Goal Plan of Care Note [code = 24580-9] Goal Plan of Care Note [code = 69236-0] Goal Plan of Care Note [code = 43677-4] Goal Plan of Care Note [code = 49854-7] Goal Plan of Care Note [code = 10489-1] Goal Plan of Care Note [code = 39052-9] Goal Plan of Care Note [code = 83277-1] Goal Plan of Care Note [code = 91862-5] Goal Plan of Care Note [code = 37928-4] Goal Plan of Care Note [code = 69468-0] Goal Plan of Care Note [code = 08930-9] Goal Plan of Care Note [code = 84450-6] Goal Plan of Care Note [code = 68081-2] Goal Plan of Care Note [code = 74715-2] Goal Plan of Care Note [code = 82461-6] Goal Plan of Care Note [code = 26614-3] Goal Plan of Care Note [code = 04365-5] Goal Plan of Care Note [code = 99003-0] Goal Plan of Care Note [code = 18886-5] Goal Plan of Care Note [code = 04264-4] Goal Plan of Care Note [code = 34729-9] Goal Plan of Care Note [code = 87235-5] Goal Plan of Care Note [code = 47288-8] Goal Plan of Care Note [code = 55447-4] Goal Plan of Care Note [code = 35965-0] Goal Plan of Care Note [code = 70913-0] Goal Plan of Care Note [code = 28983-7] Goal Plan of Care Note [code = 13029-5] Goal Plan of Care Note [code = 75644-3] Goal Plan of Care Note [code = 13189-9] Goal Plan of Care Note [code = 90226-1] Goal Plan of Care Note [code = 73274-9] Goal Plan of Care Note [code = 97593-9] Goal Plan of Care Note [code = 44680-7] Goal Plan of Care Note [code = 02121-7] Goal Plan of Care Note [code = 72251-8] Goal Plan of Care Note [code = 30094-9] Goal Plan of Care Note [code = 23264-7] Goal Plan of Care Note [code = 62113-3] Goal Plan of Care Note [code = 68730-7] Goal Plan of Care Note [code = 48459-3] Goal Plan of Care Note [code = 64964-9] Goal Plan of Care Note [code = 33135-3] Goal Plan of Care Note [code = 86595-7] Goal Plan of Care Note [code = 27156-5] Goal Plan of Care Note [code = 93404-6] Goal Plan of Care Note [code = 16921-0] Goal Plan of Care Note [code = 78284-4] Goal Plan of Care Note [code = 90117-8] Goal Plan of Care Note [code = 26869-4] Goal Plan of Care Note [code = 05937-5] Goal Plan of Care Note [code = 62266-1] Goal Plan of Care Note [code = 02812-8] Goal Plan of Care Note [code = 52367-4] Goal Plan of Care Note [code = 57669-7] Goal Plan of Care Note [code = 28891-5] Goal Plan of Care Note [code = 29642-3] Goal Plan of Care Note [code = 81806-0] Goal Plan of Care Note [code = 08787-6] Goal Plan of Care Note [code = 12730-5] Goal Plan of Care Note [code = 64444-3] Goal Plan of Care Note [code = 09388-9] Goal Plan of Care Note [code = 59404-3] Goal Plan of Care Note [code = 74887-3] Goal Plan of Care Note [code = 73949-8] Goal Plan of Care Note [code = 06977-2] Goal Plan of Care Note [code = 54038-7] Goal Plan of Care Note [code = 71064-7] Goal Plan of Care Note [code = 62358-9] Goal Plan of Care Note [code = 95014-1] Goal Plan of Care Note [code = 54860-3] Goal Plan of Care Note [code = 41310-1] Goal Plan of Care Note [code = 58469-8] Goal Plan of Care Note [code = 62805-6] Goal Plan of Care Note [code = 64314-9] Goal Plan of Care Note [code = 70314-5] Goal Plan of Care Note [code = 84062-7] Goal Plan of Care Note [code = 98091-9] Goal Plan of Care Note [code = 92873-6] Goal Plan of Care Note [code = 78721-4] Goal Plan of Care Note [code = 25629-5] Goal Plan of Care Note [code = 45068-4] Goal Plan of Care Note [code = 32106-3] Goal Plan of Care Note [code = 93631-2] Goal Plan of Care Note [code = 67212-5] Goal Plan of Care Note [code = 41435-2] Goal Plan of Care Note [code = 73553-1] Goal Plan of Care Note [code = 44703-3] Goal Plan of Care Note [code = 93411-3] Goal Plan of Care Note [code = 74516-1] Encounters Start End Encounter Admission Attending Care Care Encounter Source Date/Time Date/Time Type Type Clinicians Facility Department ID 2022-05-05 2022-05-05 Outpatient SFA SFA [id number] Abhijit 13:09:40 13:09:40 0220 [facility] 2022-04-30 2022-04-30 Outpatient SFA SFA [id number] 023 Abhijit 17:01:31 17:01:31 0215 F Kunal 2022-03-28 2022-03-28 Outpatient SFA SFA [id number] 023 Abhijit 11:08:44 11:08:44 0113 [facility] 2022-03-26 2022-03-26 Outpatient SFA SFA 53762-1 023 Abhijit 17:18:46 17:18:46 0111 [facility] 2022-03-26 2022-03-26 Outpatient [id number]- [id number] [id number] 00:00:00 00:00:00 Visit 7h75-9074 j50-9497-j -b592-e7w 971-b3i308 1268f1441 2r3569 2022-03-25 2022-03-25 Outpatient SFA SFA 65434-4 023 Abhijit 09:47:58 09:47:58 0110 [facility] 2022-03-25 2022-03-25 Outpatient [id number]- [id number] f201t5-9 00:00:00 00:00:00 Visit 4356-4df7 356-4df7-a -uu75-35m e93-54l76x 82w4z849z 4p142l 2022-02-11 2022-02-11 Outpatient SFA SFA [id number] 022 Abhijit 10:38:03 10:38:03 1129 F Kunal 2022-02-11 2022-02-11 Outpatient ftg3ej0x- [id number] ea w1ee2i-k 00:00:00 00:00:00 Visit wa4v-3845 y5t-2955-a -v373-8j3 246-5d2bc4 yr6260z30 a12022-01-30 2022-01-30 Outpatient SFA SFA [id number] 022 Abhijit 08:12:07 08:12:07 1117 F Kunal 2022-01-30 2022-01-30 Outpatient 4t54j8xk- [id number] 7b 00d0zo-7 00:00:00 00:00:00 Visit 7aac-4b37 aac-4b37-b -hh2d-75a g7e-26z093 295l9d8ov f5b5da 2021-12-23 2021-12-23 Outpatient SFA SFA [id number] 022 Abhijit 10:06:30 10:06:30 1010 F Kunal 2021-12-23 2021-12-23 Outpatient 5ga9z84y- [id number] 6e j1w09l-1 00:00:00 00:00:00 Visit 4644-4df8 644-4df8-8 -832f-715 32f-715e84 n63zor33p aab02d 2021-11-19 2021-11-19 Outpatient owd351po- [id number] ad h681zt-b 00:00:00 00:00:00 Visit rz67-4m2h y73-5k1q-d -i052-97g 765-83t685 6966v987z 8u987p 2021-09-25 2021-09-25 Outpatient [id number]- [id number] 1e 07244o-r 00:00:00 00:00:00 Visit a4m8-4n69 6n1-5v69-q -c682-h9f 976-d3ac12 o71fu6bc1 de8a 2021-09-23 2021-09-23 Outpatient [id number]- [id number] 37d06m-7 00:00:00 00:00:00 Visit 3572-4f85 572-4f85-9 -6b4s-95o f2c-55k0j1 0y09a500z 7z806x 2021-06-08 2021-06-08 Emergency X HA, [facility] ERT [id number] Univers 15:37:00 16:46:00 TEE ity of [facility] 2021-06-08 2021-06-08 Emergency [facility] 1.2.840.114 [id number] Univers 15:37:00 16:46:00 Tee ACOSTA 350.1.13.10 i ty of [place] 4[facility]7.2.686 [id number] [address] 2021-06-08 2021-06-08 Orders Doctor TONI 1.2.840.114 [id number] Univers 00:00:00 00:00:00 Only Unassigned, SUSANA 350.1.13.10 ity of [place] [facility] 4.2.7.2.686 Yeyo as [id number] [address] 2020-10-08 2020-10-08 [facility] 1.2.840.114 [id number] Univers 16:35:00 17:12:00 Radha Acosta 350.1.13.10 ity of [place] 4.2.7.2.686 [facility] [id number] [address] 2020-10-08 2020-10-08 Emergency X [facility] ERT [id number] Univers 16:19:00 16:19:00 ity of [facility] 2020-10-08 2020-10-08 Orders Doctor TONI 1.2.840.114 [id number] Univers 00:00:00 00:00:00 Only Unassigned, SUSANA 350.1.13.10 ity of [place] [facility] 4.2.7.2.686 Yeyo as [id number] [address] 2016-04-14 2016-04-14 Outpatient MHIE TWIN [id number] [facility] 14:30:00 14:30:00 00 junior Mora 2016-04-14 2016-04-14 [id number] [facility] 14:30:00 14:30:00 00 junior Mora Results Test [...] . . . . . . MIU/ML 8-8IOAS-TKJAJTX GEMA FEMALES . . . . . . . . . . . . MIU/ML <=7 UNLESS OTHERWISE INDIC ATED, ALL TESTING PERFORMED [facility], [facility]. [address] [place] [address] 4 PAN HELPER: LUIZ STUBBS M.D. CLIA NUMBER [id number] CAP ACCREDITATION N O. [id number] VAGINAL PATHOGENS DNA [id number] 15:47:35 Test Item Value Reference Range Interpretation [...] ATED, ALL TESTING PERFORM ED [facility], [facility]. [address] [place] [address] LABORATOR Y DIRECTOR: LUIZ PRICE M.D. CLIA NUMBER [id number] CAP ACCREDITATION N O. [id number] VAGINAL PATHOGENS DNA [id number] 00:00:00 Test Item Value Reference Range Interpretation Comments JENNY SPECIES (test code = ) NEGATIVE G. VAGINALIS (test code = 44773) POSITIVE T. VAGINALIS (test code = ) NEGATIVE VAGINAL PATHOGENS DNA [id number] 00:00:00 Test Item Value Reference Range Interpretation Comments JENNY SPECIES (test code = ) NEGATIVE G. VAGINALIS (test code = 93046) POSITIVE T. VAGINALIS (test code = 54521) NEGATIVE CBC W/AUTO [id number] 00:00:00 Test Item Value Reference Range Interpretation [...] NUCLEATED RBCS (test code = 0.00 K/UL 80703) CBC W/AUTO [id number] 00:00:00 Test Item Value Reference Range Interpretation [...] NUCLEATED RBCS (test code = 0.00 K/UL 38319) CBC W/AUTO [id number] 00:00:00 Test Item Value Reference Range Interpretation [...] NUCLEATED RBCS (test code = 0.00 K/UL 88109) LIVER (HEPATIC) FUNCTION [id number] 00:00:00 Test Item Value Reference Range Interpretation [...] = 2219) 26 U/L LIVER (HEPATIC) FUNCTION [id number] 00:00:00 Test Item Value Reference Range Interpretation Comments PROTEIN, TOTAL (test code = 2229) 7.9 G/DL ALBUMIN (test code = 2201) 4.3 G/DL BILIRUBIN, TOTAL (test code = 2207) 0.4 MG/DL BILIRUBIN, DIRECT (test code = 0.1 MG/DL 2021) ALKALINE PHOSPHATASE (test code = 73 U/L 4) AST (test code = 2218) 23 U/L ALT (test code = 2219) 26 U/L BASIC METABOLIC [id number] 00:00:00 Test Item Value Reference Range Interpretation Comments GLUCOSE (test code = 2217) 103 MG/DL BUN (test code = 2208) 14 MG/DL CREATININE (test code = 2214) 0.68 MG/DL eGFR (2020 CKD-EPI) (test 114 ML/MIN/1.73 code = 52236) SODIUM (test code = 2231) 144 MEQ/L POTASSIUM (test code = 2228) 4.5 MEQ/L CHLORIDE (test code = 2215) 107 MEQ/L CARBON DIOXIDE (test code = 27 MEQ/L 2206) CALCIUM (test code = 2209) 10.0 MG/DL BASIC METABOLIC [id number] 00:00:00 Test Item Value Reference Range Interpretation Comments GLUCOSE (test code = 2217) 103 MG/DL BUN (test code = 2208) 14 MG/DL CREATININE (test code = 2214) 0.68 MG/DL eGFR (2020 CKD-EPI) (test 114 ML/MIN/1.73 code = 32222) SODIUM (test code = 2231) 144 MEQ/L POTASSIUM (test code = 2228) 4.5 MEQ/L CHLORIDE (test code = 2215) 107 MEQ/L CARBON DIOXIDE (test code = 27 MEQ/L 2206) CALCIUM (test code = 2209) 10.0 MG/DL CBC W/AUTO [id number] 00:00:00 Test Item Value Reference Range Interpretation [...] NUCLEATED RBCS (test code = 0.00 K/UL 27676) CBC W/AUTO [id number] 00:00:00 Test Item Value Reference Range Interpretation [...] NUCLEATED RBCS (test code = 0.00 K/UL 84166) CBC W/AUTO [id number] 00:00:00 Test Item Value Reference Range Interpretation [...] NUCLEATED RBCS (test code = 0.00 K/UL 77938) LIVER (HEPATIC) FUNCTION [id number] 00:00:00 Test Item Value Reference Range Interpretation [...] = 2219) 26 U/L LIVER (HEPATIC) FUNCTION [id number] 00:00:00 Test Item Value Reference Range Interpretation Comments PROTEIN, TOTAL (test code = 2229) 7.9 G/DL ALBUMIN (test code = 2201) 4.3 G/DL BILIRUBIN, TOTAL (test code = 2207) 0.4 MG/DL BILIRUBIN, DIRECT (test code = 0.1 MG/DL 2021) ALKALINE PHOSPHATASE (test code = 73 U/L 2203) AST (test code = 2218) 23 U/L ALT (test code = 2219) 26 U/L BASIC METABOLIC [id number] 00:00:00 Test Item Value Reference Range Interpretation Comments GLUCOSE (test code = 2217) 103 MG/DL BUN (test code = 2208) 14 MG/DL CREATININE (test code = 2214) 0.68 MG/DL eGFR (2020 CKD-EPI) (test 114 ML/MIN/1.73 code = 41077) SODIUM (test code = 2231) 144 MEQ/L POTASSIUM (test code = 2228) 4.5 MEQ/L CHLORIDE (test code = 2215) 107 MEQ/L CARBON DIOXIDE (test code = 27 MEQ/L 2206) CALCIUM (test code = 2209) 10.0 MG/DL BASIC METABOLIC [id number] 00:00:00 Test Item Value Reference Range Interpretation Comments GLUCOSE (test code = 2217) 103 MG/DL BUN (test code = 2208) 14 MG/DL CREATININE (test code = 2214) 0.68 MG/DL eGFR (2020 CKD-EPI) (test 114 ML/MIN/1.73 code = 95692) SODIUM (test code = 2231) 144 MEQ/L POTASSIUM (test code = 2228) 4.5 MEQ/L CHLORIDE (test code = 2215) 107 MEQ/L CARBON DIOXIDE (test code = 27 MEQ/L 2206) CALCIUM (test code = 2209) 10.0 MG/DL CBC W/AUTO [id number] 00:00:00 Test Item Value Reference Range Interpretation [...] NUCLEATED RBCS (test code = 0.00 K/UL 13938) CBC W/AUTO [id number] 00:00:00 Test Item Value Reference Range Interpretation [...] NUCLEATED RBCS (test code = 0.00 K/UL 90897) CBC W/AUTO [id number] 00:00:00 Test Item Value Reference Range Interpretation [...] NUCLEATED RBCS (test code = 0.00 K/UL 27698) LIVER (HEPATIC) FUNCTION [id number] 00:00:00 Test Item Value Reference Range Interpretation [...] = 2219) 26 U/L LIVER (HEPATIC) FUNCTION [id number] 00:00:00 Test Item Value Reference Range Interpretation Comments PROTEIN, TOTAL (test code = 2229) 7.9 G/DL ALBUMIN (test code = 2201) 4.3 G/DL BILIRUBIN, TOTAL (test code = 2207) 0.4 MG/DL BILIRUBIN, DIRECT (test code = 0.1 MG/DL 2021) ALKALINE PHOSPHATASE (test code = 73 U/L 4) AST (test code = 2218) 23 U/L ALT (test code = 2219) 26 U/L BASIC METABOLIC [id number] 00:00:00 Test Item Value Reference Range Interpretation Comments GLUCOSE (test code = 2217) 103 MG/DL BUN (test code = 2208) 14 MG/DL CREATININE (test code = 2214) 0.68 MG/DL eGFR (2020 CKD-EPI) (test 114 ML/MIN/1.73 code = 96866) SODIUM (test code = 2231) 144 MEQ/L POTASSIUM (test code = 2228) 4.5 MEQ/L CHLORIDE (test code = 2215) 107 MEQ/L CARBON DIOXIDE (test code = 27 MEQ/L 2206) CALCIUM (test code = 2209) 10.0 MG/DL BASIC METABOLIC [id number] 00:00:00 Test Item Value Reference Range Interpretation Comments GLUCOSE (test code = 2217) 103 MG/DL BUN (test code = 2208) 14 MG/DL CREATININE (test code = 2214) 0.68 MG/DL eGFR (2020 CKD-EPI) (test 114 ML/MIN/1.73 code = 40333) SODIUM (test code = 2231) 144 MEQ/L POTASSIUM (test code = 2228) 4.5 MEQ/L CHLORIDE (test code = 2215) 107 MEQ/L CARBON DIOXIDE (test code = 27 MEQ/L 2206) CALCIUM (test code = 2209) 10.0 MG/DL H. PYLORI (BREATH)2021-09-05 13:02:07 Test Item Value Reference Range Interpretation Comments H. PYLORI (BREATH) NEGATIVE NEGATIVE UNLESS O THERWISE (test code = 94280) INDICATE D, ALL TESTING PERFORMED [facility] [address] [place] [id number] [facility] DIRECTOR: LUIZ STUBBS M.D. CLIA NUMBER [id number] CAP ACCREDITATION N O. [id number] HEMOGLOBIN [id number] 04:43:10 Test Item Value Reference Range Interpretation Comments HEMOGLOBIN A1c (test code = 47872) 5.5 % 4.2-5.6 LIPID [id number] 03:04:55 Test Item Value Reference Range Interpretation [...] MOREINFORMATION , SEE CLIENT ANNOUNCE MENT AT [email or web address] ([email or web address] /CalcLDL-C RISK RATIO LDL/HDL 1.62 RATIO <3.22 UNLESS O THERWISE (test code = 2238) INDICATED , ALL TESTING PERFORMED [facility], [id number] [place] [address] DIRECTOR: LUIZ STUBBS M.D. CLIA NUMBER [id number] CAP ACCREDITATION N O. [id number] HEMOGLOBIN [id number] 00:00:00 Test Item Value Reference Range Interpretation Comments HEMOGLOBIN A1c (test code = 48031) 5.5 % HEMOGLOBIN [id number] 00:00:00 Test Item Value Reference Range Interpretation Comments HEMOGLOBIN A1c (test code = 21517) 5.5 % H. PYLORI (BREATH)2021-09-05 00:00:00 Test Item Value Reference Range Interpretation Comments H. PYLORI (BREATH) (test code = NEGATIVE 66745) LIPID [id number] 00:00:00 Test Item Value Reference Range Interpretation Comments CHOLESTEROL (test code = 2210) 138 MG/DL TRIGLYCERIDES (test code = 2232) 114 MG/DL HDL CHOLESTEROL (test code = 2220) 45 MG/DL CALC LDL CHOL (test code = 2237) 73 MG/DL RISK RATIO LDL/HDL (test code = 1.62 RATIO 2238) HEMOGLOBIN [id number] 00:00:00 Test Item Value Reference Range Interpretation Comments HEMOGLOBIN A1c (test code = 71512) 5.5 % H. PYLORI (BREATH)2021-09-05 00:00:00 Test Item Value Reference Range Interpretation Comments H. PYLORI (BREATH) (test code = NEGATIVE 22711) HEMOGLOBIN [id number] 00:00:00 Test Item Value Reference Range Interpretation Comments HEMOGLOBIN A1c (test code = 81637) 5.5 % H. PYLORI (BREATH)2021-09-05 00:00:00 Test Item Value Reference Range Interpretation Comments H. PYLORI (BREATH) (test code = NEGATIVE 05824) HEMOGLOBIN [id number] 00:00:00 Test Item Value Reference Range Interpretation Comments HEMOGLOBIN A1c (test code = 92438) 5.5 % HEMOGLOBIN [id number] 00:00:00 Test Item Value Reference Range Interpretation Comments HEMOGLOBIN A1c (test code = 51051) 5.5 % H. PYLORI (BREATH)2021-09-05 00:00:00 Test Item Value Reference Range Interpretation Comments H. PYLORI (BREATH) (test code = NEGATIVE 32452) LIPID [id number] 00:00:00 Test Item Value Reference Range Interpretation Comments CHOLESTEROL (test code = 2210) 138 MG/DL TRIGLYCERIDES (test code = 2232) 114 MG/DL HDL CHOLESTEROL (test code = 2220) 45 MG/DL CALC LDL CHOL (test code = 2237) 73 MG/DL RISK RATIO LDL/HDL (test code = 1.62 RATIO 2238) LIPID [id number] 00:00:00 Test Item Value Reference Range Interpretation Comments CHOLESTEROL (test code = 2210) 138 MG/DL TRIGLYCERIDES (test code = 2232) 114 MG/DL HDL CHOLESTEROL (test code = 2220) 45 MG/DL CALC LDL CHOL (test code = 2237) 73 MG/DL RISK RATIO LDL/HDL (test code = 1.62 RATIO 2238) HEMOGLOBIN [id number] 00:00:00 Test Item Value Reference Range Interpretation Comments HEMOGLOBIN A1c (test code = 42398) 5.5 % LIPID [id number] 00:00:00 Test Item Value Reference Range Interpretation Comments CHOLESTEROL (test code = 2210) 138 MG/DL TRIGLYCERIDES (test code = 2232) 114 MG/DL HDL CHOLESTEROL (test code = 2220) 45 MG/DL CALC LDL CHOL (test code = 2237) 73 MG/DL RISK RATIO LDL/HDL (test code = 1.62 RATIO 2238) HEMOGLOBIN [id number] 00:00:00 Test Item Value Reference Range Interpretation Comments HEMOGLOBIN A1c (test code = 26464) 5.5 % H. PYLORI (BREATH)2021-09-05 00:00:00 Test Item Value Reference Range Interpretation Comments H. PYLORI (BREATH) (test code = NEGATIVE 67403) HEMOGLOBIN [id number] 00:00:00 Test Item Value Reference Range Interpretation Comments HEMOGLOBIN A1c (test code = 02058) 5.5 % HEMOGLOBIN [id number] 00:00:00 Test Item Value Reference Range Interpretation Comments HEMOGLOBIN A1c (test code = 91597) 5.5 % H. PYLORI (BREATH)2021-09-05 00:00:00 Test Item Value Reference Range Interpretation Comments H. PYLORI (BREATH) (test code = NEGATIVE 88646) LIPID [id number] 00:00:00 Test Item Value Reference Range Interpretation Comments CHOLESTEROL (test code = 2210) 138 MG/DL TRIGLYCERIDES (test code = 2232) 114 MG/DL HDL CHOLESTEROL (test code = 2220) 45 MG/DL CALC LDL CHOL (test code = 2237) 73 MG/DL RISK RATIO LDL/HDL (test code = 1.62 RATIO 2238) LIPID [id number] 00:00:00 Test Item Value Reference Range Interpretation [...] H. PYLORI (BREATH) (test code = NEGATIVE 92656) HEMOGLOBIN [id number] 00:00:00 Test Item Value Reference Range Interpretation Comments HEMOGLOBIN A1c (test code = 94893) 5.5 % HEMOGLOBIN [id number] 00:00:00 Test Item Value Reference Range Interpretation Comments HEMOGLOBIN A1c (test code = 38403) 5.5 % H. PYLORI (BREATH)2021-09-05 00:00:00 Test Item Value Reference Range Interpretation Comments H. PYLORI (BREATH) (test code = NEGATIVE 26773) HEMOGLOBIN [id number] 00:00:00 Test Item Value Reference Range Interpretation Comments HEMOGLOBIN A1c (test code = 65522) 5.5 % LIPID [id number] 00:00:00 Test Item Value Reference Range Interpretation Comments CHOLESTEROL (test code = 2210) 138 MG/DL TRIGLYCERIDES (test code = 2232) 114 MG/DL HDL CHOLESTEROL (test code = 2220) 45 MG/DL CALC LDL CHOL (test code = 2237) 73 MG/DL RISK RATIO LDL/HDL (test code = 1.62 RATIO 2238) LIPID [id number] 00:00:00 Test Item Value Reference Range Interpretation Comments CHOLESTEROL (test code = 2210) 138 MG/DL TRIGLYCERIDES (test code = 2232) 114 MG/DL HDL CHOLESTEROL (test code = 2220) 45 MG/DL CALC LDL CHOL (test code = 2237) 73 MG/DL RISK RATIO LDL/HDL (test code = 1.62 RATIO 2238) HEMOGLOBIN [id number] 00:00:00 Test Item Value Reference Range Interpretation Comments HEMOGLOBIN A1c (test code = 23117) 5.5 % H. PYLORI (BREATH)2021-09-05 00:00:00 Test Item Value Reference Range Interpretation Comments H. PYLORI (BREATH) (test code = NEGATIVE 16259) H. PYLORI (BREATH)2021-09-05 00:00:00 Test Item Value Reference Range Interpretation Comments H. PYLORI (BREATH) (test code = NEGATIVE 00625) HEMOGLOBIN [id number] 00:00:00 Test Item Value Reference Range Interpretation Comments HEMOGLOBIN A1c (test code = 13558) 5.5 % HEMOGLOBIN [id number] 00:00:00 Test Item Value Reference Range Interpretation Comments HEMOGLOBIN A1c (test code = 29507) 5.5 % LIPID [id number] 00:00:00 Test Item Value Reference Range Interpretation Comments CHOLESTEROL (test code = 2210) 138 MG/DL TRIGLYCERIDES (test code = 2232) 114 MG/DL HDL CHOLESTEROL (test code = 2220) 45 MG/DL CALC LDL CHOL (test code = 2237) 73 MG/DL RISK RATIO LDL/HDL (test code = 1.62 RATIO 2238) LIPID [id number] 00:00:00 Test Item Value Reference Range Interpretation [...] H. PYLORI (BREATH) (test code = NEGATIVE 23244) H. PYLORI (BREATH)2021-09-05 00:00:00 Test Item Value Reference Range Interpretation Comments H. PYLORI (BREATH) (test code = NEGATIVE 80020) HEMOGLOBIN [id number] 00:00:00 Test Item Value Reference Range Interpretation Comments HEMOGLOBIN A1c (test code = 17774) 5.5 % HEMOGLOBIN [id number] 00:00:00 Test Item Value Reference Range Interpretation Comments HEMOGLOBIN A1c (test code = 65416) 5.5 % HEMOGLOBIN [id number] 00:00:00 Test Item Value Reference Range Interpretation Comments HEMOGLOBIN A1c (test code = 70063) 5.5 % LIPID [id number] 00:00:00 Test Item Value Reference Range Interpretation Comments CHOLESTEROL (test code = 2210) 138 MG/DL TRIGLYCERIDES (test code = 2232) 114 MG/DL HDL CHOLESTEROL (test code = 2220) 45 MG/DL CALC LDL CHOL (test code = 2237) 73 MG/DL RISK RATIO LDL/HDL (test code = 1.62 RATIO 2238) LIPID [id number] 00:00:00 Test Item Value Reference Range Interpretation [...] H. PYLORI (BREATH) (test code = NEGATIVE 85770) HEMOGLOBIN [id number] 00:00:00 Test Item Value Reference Range Interpretation Comments HEMOGLOBIN A1c (test code = 36156) 5.5 % HEMOGLOBIN [id number] 00:00:00 Test Item Value Reference Range Interpretation Comments HEMOGLOBIN A1c (test code = 58384) 5.5 % H. PYLORI (BREATH)2021-09-05 00:00:00 Test Item Value Reference Range Interpretation Comments H. PYLORI (BREATH) (test code = NEGATIVE 21995) HEMOGLOBIN [id number] 00:00:00 Test Item Value Reference Range Interpretation Comments HEMOGLOBIN A1c (test code = 45562) 5.5 % LIPID [id number] 00:00:00 Test Item Value Reference Range Interpretation Comments CHOLESTEROL (test code = 2210) 138 MG/DL TRIGLYCERIDES (test code = 2232) 114 MG/DL HDL CHOLESTEROL (test code = 2220) 45 MG/DL CALC LDL CHOL (test code = 2237) 73 MG/DL RISK RATIO LDL/HDL (test code = 1.62 RATIO 2238) LIPID [id number] 00:00:00 Test Item Value Reference Range Interpretation Comments CHOLESTEROL (test code = 2210) 138 MG/DL TRIGLYCERIDES (test code = 2232) 114 MG/DL HDL CHOLESTEROL (test code = 2220) 45 MG/DL CALC LDL CHOL (test code = 2237) 73 MG/DL RISK RATIO LDL/HDL (test code = 1.62 RATIO 2238) COMPREHENSIVE METABOLIC [id number] 05:52:46 Test Item Value Reference Range Interpretation Comments GLUCOSE (test code = 110 MG/DL 70-99 H 2216) BUN (test code = 12 MG/DL 09-02) CREATININE (test 0.67 MG/DL 0.60-1.30 code = 2214) eGFR (2020 CKD-EPI) 115 >60 (test code = 35869) ML/MIN/1.73 CALC BUN/CREAT (test 18 RATIO 09-10 [...] code = 28 U/L 5-40 2218) C-REACTIVE [id number] 05:52:34 Test Item Value Reference Range Interpretation Comments C-REACTIVE PROTEIN 4.8 MG/DL <0.5 H UNLESS O THERWISE (test code = 3513) INDICATED , ALL TESTING PERFORMED [facility] [address] [place] [address] DIRECTOR: LUIZ STUBBS M.D. CLIA NUMBER [id number] CAP ACCREDITATION N O. [id number] CBC W/AUTO DIFF WITH [id number] 04:54:28 Test Item Value Reference Range Interpretation [...] RBCS 0.00 K/UL 0.00-0.11 (test code = 38021) CBC W/AUTO [id number] 00:00:00 Test Item Value Reference Range Interpretation [...] NUCLEATED RBCS (test code = 0.00 K/UL 25364) CBC W/AUTO [id number] 00:00:00 Test Item Value Reference Range Interpretation [...] NUCLEATED RBCS (test code = 0.00 K/UL 18680) COMPREHENSIVE METABOLIC [id number] 00:00:00 Test Item Value Reference Range Interpretation Comments GLUCOSE (test code = 2217) 110 MG/DL BUN (test code = 2208) 12 MG/DL CREATININE (test code = 2214) 0.67 MG/DL eGFR (2020 CKD-EPI) (test 115 ML/MIN/1.73 code = 17541) CALC BUN/CREAT (test code = 18 RATIO [...] (test code = 2219) 28 U/L C-REACTIVE [id number] 00:00:00 Test Item Value Reference Range Interpretation Comments C-REACTIVE PROTEIN (test code = 4.8 MG/DL 3513) CBC W/AUTO [id number] 00:00:00 Test Item Value Reference Range Interpretation [...] NUCLEATED RBCS (test code = 0.00 K/UL 07168) CBC W/AUTO [id number] 00:00:00 Test Item Value Reference Range Interpretation [...] NUCLEATED RBCS (test code = 0.00 K/UL 52560) CBC W/AUTO [id number] 00:00:00 Test Item Value Reference Range Interpretation [...] NUCLEATED RBCS (test code = 0.00 K/UL 25482) CBC W/AUTO [id number] 00:00:00 Test Item Value Reference Range Interpretation [...] NUCLEATED RBCS (test code = 0.00 K/UL 68172) COMPREHENSIVE METABOLIC [id number] 00:00:00 Test Item Value Reference Range Interpretation Comments GLUCOSE (test code = 2217) 110 MG/DL BUN (test code = 2208) 12 MG/DL CREATININE (test code = 2214) 0.67 MG/DL eGFR (2020 CKD-EPI) (test 115 ML/MIN/1.73 code = 61717) CALC BUN/CREAT (test code = 18 RATIO [...] code = 2219) 28 U/L COMPREHENSIVE METABOLIC [id number] 00:00:00 Test Item Value Reference Range Interpretation Comments GLUCOSE (test code = 2217) 110 MG/DL BUN (test code = 2208) 12 MG/DL CREATININE (test code = 2214) 0.67 MG/DL eGFR (2020 CKD-EPI) (test 115 ML/MIN/1.73 code = 71140) CALC BUN/CREAT (test code = 18 RATIO [...] (test code = 2219) 28 U/L C-REACTIVE [id number] 00:00:00 Test Item Value Reference Range Interpretation Comments C-REACTIVE PROTEIN (test code = 4.8 MG/DL 3513) C-REACTIVE [id number] 00:00:00 Test Item Value Reference Range Interpretation Comments C-REACTIVE PROTEIN (test code = 4.8 MG/DL 3513) CBC W/AUTO [id number] 00:00:00 Test Item Value Reference Range Interpretation [...] NUCLEATED RBCS (test code = 0.00 K/UL 80615) CBC W/AUTO [id number] 00:00:00 Test Item Value Reference Range Interpretation [...] NUCLEATED RBCS (test code = 0.00 K/UL 49334) CBC W/AUTO [id number] 00:00:00 Test Item Value Reference Range Interpretation [...] NUCLEATED RBCS (test code = 0.00 K/UL 17813) COMPREHENSIVE METABOLIC [id number] 00:00:00 Test Item Value Reference Range Interpretation Comments GLUCOSE (test code = 2217) 110 MG/DL BUN (test code = 2208) 12 MG/DL CREATININE (test code = 2214) 0.67 MG/DL eGFR (2020 CKD-EPI) (test 115 ML/MIN/1.73 code = 09380) CALC BUN/CREAT (test code = 18 RATIO [...] code = 2219) 28 U/L CBC W/AUTO [id number] 00:00:00 Test Item Value Reference Range Interpretation [...] NUCLEATED RBCS (test code = 0.00 K/UL 99645) COMPREHENSIVE METABOLIC [id number] 00:00:00 Test Item Value Reference Range Interpretation Comments GLUCOSE (test code = 2217) 110 MG/DL BUN (test code = 2208) 12 MG/DL CREATININE (test code = 2214) 0.67 MG/DL eGFR (2020 CKD-EPI) (test 115 ML/MIN/1.73 code = 75798) CALC BUN/CREAT (test code = 18 RATIO [...] code = 2219) 28 U/L COMPREHENSIVE METABOLIC [id number] 00:00:00 Test Item Value Reference Range Interpretation Comments GLUCOSE (test code = 2217) 110 MG/DL BUN (test code = 2208) 12 MG/DL CREATININE (test code = 2214) 0.67 MG/DL eGFR (2020 CKD-EPI) (test 115 ML/MIN/1.73 code = 43380) CALC BUN/CREAT (test code = 18 RATIO [...] (test code = 2219) 28 U/L C-REACTIVE [id number] 00:00:00 Test Item Value Reference Range Interpretation Comments C-REACTIVE PROTEIN (test code = 4.8 MG/DL 3513) C-REACTIVE [id number] 00:00:00 Test Item Value Reference Range Interpretation Comments C-REACTIVE PROTEIN (test code = 4.8 MG/DL 3513) C-REACTIVE [id number] 00:00:00 Test Item Value Reference Range Interpretation Comments C-REACTIVE PROTEIN (test code = 4.8 MG/DL 3513) CBC W/AUTO [id number] 00:00:00 Test Item Value Reference Range Interpretation [...] NUCLEATED RBCS (test code = 0.00 K/UL 93535) CBC W/AUTO [id number] 00:00:00 Test Item Value Reference Range Interpretation [...] NUCLEATED RBCS (test code = 0.00 K/UL 58596) CBC W/AUTO [id number] 00:00:00 Test Item Value Reference Range Interpretation [...] NUCLEATED RBCS (test code = 0.00 K/UL 88162) COMPREHENSIVE METABOLIC [id number] 00:00:00 Test Item Value Reference Range Interpretation Comments GLUCOSE (test code = 2217) 110 MG/DL BUN (test code = 2208) 12 MG/DL CREATININE (test code = 2214) 0.67 MG/DL eGFR (2020 CKD-EPI) (test 115 ML/MIN/1.73 code = 80888) CALC BUN/CREAT (test code = 18 RATIO [...] code = 2219) 28 U/L COMPREHENSIVE METABOLIC [id number] 00:00:00 Test Item Value Reference Range Interpretation Comments GLUCOSE (test code = 2217) 110 MG/DL BUN (test code = 2208) 12 MG/DL CREATININE (test code = 2214) 0.67 MG/DL eGFR (2020 CKD-EPI) (test 115 ML/MIN/1.73 code = 03876) CALC BUN/CREAT (test code = 18 RATIO [...] (test code = 2219) 28 U/L C-REACTIVE [id number] 00:00:00 Test Item Value Reference Range Interpretation Comments C-REACTIVE PROTEIN (test code = 4.8 MG/DL 3513) C-REACTIVE [id number] 00:00:00 Test Item Value Reference Range Interpretation Comments C-REACTIVE PROTEIN (test code = 4.8 MG/DL 3513) CBC W/AUTO [id number] 00:00:00 Test Item Value Reference Range Interpretation [...] NUCLEATED RBCS (test code = 0.00 K/UL 35527) CBC W/AUTO [id number] 00:00:00 Test Item Value Reference Range Interpretation [...] NUCLEATED RBCS (test code = 0.00 K/UL 72304) CBC W/AUTO [id number] 00:00:00 Test Item Value Reference Range Interpretation [...] NUCLEATED RBCS (test code = 0.00 K/UL 21297) COMPREHENSIVE METABOLIC [id number] 00:00:00 Test Item Value Reference Range Interpretation Comments GLUCOSE (test code = 2217) 110 MG/DL BUN (test code = 2208) 12 MG/DL CREATININE (test code = 2214) 0.67 MG/DL eGFR (2020 CKD-EPI) (test 115 ML/MIN/1.73 code = 30917) CALC BUN/CREAT (test code = 18 RATIO [...] code = 2219) 28 U/L COMPREHENSIVE METABOLIC [id number] 00:00:00 Test Item Value Reference Range Interpretation Comments GLUCOSE (test code = 2217) 110 MG/DL BUN (test code = 2208) 12 MG/DL CREATININE (test code = 2214) 0.67 MG/DL eGFR (2020 CKD-EPI) (test 115 ML/MIN/1.73 code = 35477) CALC BUN/CREAT (test code = 18 RATIO [...] (test code = 2219) 28 U/L C-REACTIVE [id number] 00:00:00 Test Item Value Reference Range Interpretation Comments C-REACTIVE PROTEIN (test code = 4.8 MG/DL 3513) C-REACTIVE [id number] 00:00:00 Test Item Value Reference Range Interpretation Comments C-REACTIVE PROTEIN (test code = 4.8 MG/DL 3513) CBC W/AUTO [id number] 00:00:00 Test Item Value Reference Range Interpretation [...] NUCLEATED RBCS (test code = 0.00 K/UL 18162) CBC W/AUTO [id number] 00:00:00 Test Item Value Reference Range Interpretation [...] NUCLEATED RBCS (test code = 0.00 K/UL 97365) CBC W/AUTO [id number] 00:00:00 Test Item Value Reference Range Interpretation [...] NUCLEATED RBCS (test code = 0.00 K/UL 89387) COMPREHENSIVE METABOLIC [id number] 00:00:00 Test Item Value Reference Range Interpretation Comments GLUCOSE (test code = 2217) 110 MG/DL BUN (test code = 2208) 12 MG/DL CREATININE (test code = 2214) 0.67 MG/DL eGFR (2020 CKD-EPI) (test 115 ML/MIN/1.73 code = 54845) CALC BUN/CREAT (test code = 18 RATIO [...] code = 2219) 28 U/L COMPREHENSIVE METABOLIC [id number] 00:00:00 Test Item Value Reference Range Interpretation Comments GLUCOSE (test code = 2217) 110 MG/DL BUN (test code = 2208) 12 MG/DL CREATININE (test code = 2214) 0.67 MG/DL eGFR (2020 CKD-EPI) (test 115 ML/MIN/1.73 code = 90003) CALC BUN/CREAT (test code = 18 RATIO [...] (test code = 2219) 28 U/L C-REACTIVE [id number] 00:00:00 Test Item Value Reference Range Interpretation Comments C-REACTIVE PROTEIN (test code = 4.8 MG/DL 3513) C-REACTIVE [id number] 00:00:00 Test Item Value Reference Range Interpretation Comments C-REACTIVE PROTEIN (test code = 4.8 MG/DL 3513) CBC W/AUTO [id number] 00:00:00 Test Item Value Reference Range Interpretation [...] NUCLEATED RBCS (test code = 0.00 K/UL 35923) CBC W/AUTO [id number] 00:00:00 Test Item Value Reference Range Interpretation [...] NUCLEATED RBCS (test code = 0.00 K/UL 92114) CBC W/AUTO [id number] 00:00:00 Test Item Value Reference Range Interpretation [...] NUCLEATED RBCS (test code = 0.00 K/UL 96429) COMPREHENSIVE METABOLIC [id number] 00:00:00 Test Item Value Reference Range Interpretation Comments GLUCOSE (test code = 2217) 110 MG/DL BUN (test code = 2208) 12 MG/DL CREATININE (test code = 2214) 0.67 MG/DL eGFR (2020 CKD-EPI) (test 115 ML/MIN/1.73 code = 47285) CALC BUN/CREAT (test code = 18 RATIO [...] code = 2219) 28 U/L COMPREHENSIVE METABOLIC [id number] 00:00:00 Test Item Value Reference Range Interpretation Comments GLUCOSE (test code = 2217) 110 MG/DL BUN (test code = 2208) 12 MG/DL CREATININE (test code = 2214) 0.67 MG/DL eGFR (2020 CKD-EPI) (test 115 ML/MIN/1.73 code = 53145) CALC BUN/CREAT (test code = 18 RATIO [...] (test code = 2219) 28 U/L C-REACTIVE [id number] 00:00:00 Test Item Value Reference Range Interpretation Comments C-REACTIVE PROTEIN (test code = 4.8 MG/DL 3513) C-REACTIVE [id number] 00:00:00 Test Item Value Reference Range Interpretation Comments C-REACTIVE PROTEIN (test code = 4.8 MG/DL 3513) CBC W/AUTO DIFF WITH [id number] 03:06:39 Test Item Value Reference Range Interpretation [...] message] code = 1065) WBC'S The system [employer] generated this result transmitted ref erence range: [...] 0.00-0.11 UNLESS O THERWISE (test code = 93121) INDICATE D, ALL TESTING PERFORM [facility], [facility]. [address] [place] [address] [facility] DIRECTOR: LUIZ STUBBS M.D. CLIA NUMBER [id number] CAP ACCREDITATION N O. [id number] CBC W/AUTO [id number] 00:00:00 Test Item Value Reference Range Interpretation [...] NUCLEATED RBCS (test code = 0.00 K/UL 16750) CBC W/AUTO [id number] 00:00:00 Test Item Value Reference Range Interpretation [...] NUCLEATED RBCS (test code = 0.00 K/UL 68969) CBC W/AUTO [id number] 00:00:00 Test Item Value Reference Range Interpretation [...] NUCLEATED RBCS (test code = 0.00 K/UL 94935) CBC W/AUTO [id number] 00:00:00 Test Item Value Reference Range Interpretation [...] NUCLEATED RBCS (test code = 0.00 K/UL 69728) CBC W/AUTO [id number] 00:00:00 Test Item Value Reference Range Interpretation [...] NUCLEATED RBCS (test code = 0.00 K/UL 06854) CBC W/AUTO [id number] 00:00:00 Test Item Value Reference Range Interpretation [...] NUCLEATED RBCS (test code = 0.00 K/UL 01728) CBC W/AUTO [id number] 00:00:00 Test Item Value Reference Range Interpretation [...] NUCLEATED RBCS (test code = 0.00 K/UL 80140) CBC W/AUTO [id number] 00:00:00 Test Item Value Reference Range Interpretation [...] NUCLEATED RBCS (test code = 0.00 K/UL 17350) CBC W/AUTO [id number] 00:00:00 Test Item Value Reference Range Interpretation [...] NUCLEATED RBCS (test code = 0.00 K/UL 19651) CBC W/AUTO [id number] 00:00:00 Test Item Value Reference Range Interpretation [...] NUCLEATED RBCS (test code = 0.00 K/UL 11016) CBC W/AUTO [id number] 00:00:00 Test Item Value Reference Range Interpretation [...] NUCLEATED RBCS (test code = 0.00 K/UL 17731) CBC W/AUTO [id number] 00:00:00 Test Item Value Reference Range Interpretation [...] NUCLEATED RBCS (test code = 0.00 K/UL 41207) CBC W/AUTO [id number] 00:00:00 Test Item Value Reference Range Interpretation [...] NUCLEATED RBCS (test code = 0.00 K/UL 41726) CBC W/AUTO [id number] 00:00:00 Test Item Value Reference Range Interpretation [...] NUCLEATED RBCS (test code = 0.00 K/UL 42499) CBC W/AUTO [id number] 00:00:00 Test Item Value Reference Range Interpretation [...] NUCLEATED RBCS (test code = 0.00 K/UL 96679) CBC W/AUTO [id number] 00:00:00 Test Item Value Reference Range Interpretation [...] NUCLEATED RBCS (test code = 0.00 K/UL 11297) CBC W/AUTO [id number] 00:00:00 Test Item Value Reference Range Interpretation [...] NUCLEATED RBCS (test code = 0.00 K/UL 31486) CBC W/AUTO [id number] 00:00:00 Test Item Value Reference Range Interpretation [...] NUCLEATED RBCS (test code = 0.00 K/UL 24120) CBC W/AUTO [id number] 00:00:00 Test Item Value Reference Range Interpretation [...] NUCLEATED RBCS (test code = 0.00 K/UL 11602) CBC W/AUTO [id number] 00:00:00 Test Item Value Reference Range Interpretation [...] NUCLEATED RBCS (test code = 0.00 K/UL 98406) CBC W/AUTO [id number] 00:00:00 Test Item Value Reference Range Interpretation [...] NUCLEATED RBCS (test code = 0.00 K/UL 00482) CBC W/AUTO [id number] 00:00:00 Test Item Value Reference Range Interpretation [...] NUCLEATED RBCS (test code = 0.00 K/UL 94105) CBC W/AUTO DIFF WITH [id number] 12:11:11 Test Item Value Reference Range Interpretation [...] RBCS TEST NOT 0.00-0.11 (test code = 41716) PERFORMED K/UL COMMENTS (test code = TEST NOT 1016) PERFORMED CBC W/AUTO [id number] 00:00:00 Test Item Value Reference Range Interpretation [...] RBCS (test TEST NOT PERFORMED code = 20996) K/UL COMMENTS (test code = TEST NOT PERFORMED 1016) CBC W/AUTO [id number] 00:00:00 Test Item Value Reference Range Interpretation [...] RBCS (test TEST NOT PERFORMED code = 00732) K/UL COMMENTS (test code = TEST NOT PERFORMED 1016) CBC W/AUTO [id number] 00:00:00 Test Item Value Reference Range Interpretation [...] RBCS (test TEST NOT PERFORMED code = 87716) K/UL COMMENTS (test code = TEST NOT PERFORMED 1016) CBC W/AUTO [id number] 00:00:00 Test Item Value Reference Range Interpretation [...] RBCS (test TEST NOT PERFORMED code = 60871) K/UL COMMENTS (test code = TEST NOT PERFORMED 1016) CBC W/AUTO [id number] 00:00:00 Test Item Value Reference Range Interpretation [...] RBCS (test TEST NOT PERFORMED code = 52200) K/UL COMMENTS (test code = TEST NOT PERFORMED 1016) CBC W/AUTO [id number] 00:00:00 Test Item Value Reference Range Interpretation [...] RBCS (test TEST NOT PERFORMED code = 96780) K/UL COMMENTS (test code = TEST NOT PERFORMED 1016) CBC W/AUTO [id number] 00:00:00 Test Item Value Reference Range Interpretation [...] RBCS (test TEST NOT PERFORMED code = 70106) K/UL COMMENTS (test code = TEST NOT PERFORMED 1016) CBC W/AUTO [id number] 00:00:00 Test Item Value Reference Range Interpretation [...] RBCS (test TEST NOT PERFORMED code = 35356) K/UL COMMENTS (test code = TEST NOT PERFORMED 1016) CBC W/AUTO [id number] 00:00:00 Test Item Value Reference Range Interpretation [...] RBCS (test TEST NOT PERFORMED code = 88171) K/UL COMMENTS (test code = TEST NOT PERFORMED 1016) CBC W/AUTO [id number] 00:00:00 Test Item Value Reference Range Interpretation [...] RBCS (test TEST NOT PERFORMED code = 61158) K/UL COMMENTS (test code = TEST NOT PERFORMED 1016) CBC W/AUTO [id number] 00:00:00 Test Item Value Reference Range Interpretation [...] RBCS (test TEST NOT PERFORMED code = 33065) K/UL COMMENTS (test code = TEST NOT PERFORMED 1016) CBC W/AUTO [id number] 00:00:00 Test Item Value Reference Range Interpretation [...] RBCS (test TEST NOT PERFORMED code = 99540) K/UL COMMENTS (test code = TEST NOT PERFORMED 1016) CBC W/AUTO [id number] 00:00:00 Test Item Value Reference Range Interpretation [...] RBCS (test TEST NOT PERFORMED code = 57725) K/UL COMMENTS (test code = TEST NOT PERFORMED 1016) CBC W/AUTO [id number] 00:00:00 Test Item Value Reference Range Interpretation [...] RBCS (test TEST NOT PERFORMED code = 64092) K/UL COMMENTS (test code = TEST NOT PERFORMED 1016) CBC W/AUTO [id number] 00:00:00 Test Item Value Reference Range Interpretation [...] RBCS (test TEST NOT PERFORMED code = 12282) K/UL COMMENTS (test code = TEST NOT PERFORMED 1016) CBC W/AUTO [id number] 00:00:00 Test Item Value Reference Range Interpretation [...] RBCS (test TEST NOT PERFORMED code = 13116) K/UL COMMENTS (test code = TEST NOT PERFORMED 1016) CBC W/AUTO [id number] 00:00:00 Test Item Value Reference Range Interpretation [...] RBCS (test TEST NOT PERFORMED code = 72952) K/UL COMMENTS (test code = TEST NOT PERFORMED 1016) CBC W/AUTO [id number] 00:00:00 Test Item Value Reference Range Interpretation [...] RBCS (test TEST NOT PERFORMED code = 14666) K/UL COMMENTS (test code = TEST NOT PERFORMED 1016) CBC W/AUTO [id number] 00:00:00 Test Item Value Reference Range Interpretation [...] RBCS (test TEST NOT PERFORMED code = 91439) K/UL COMMENTS (test code = TEST NOT PERFORMED 1016) CBC W/AUTO [id number] 00:00:00 Test Item Value Reference Range Interpretation [...] RBCS (test TEST NOT PERFORMED code = 38429) K/UL COMMENTS (test code = TEST NOT PERFORMED 1016) CBC W/AUTO [id number] 00:00:00 Test Item Value Reference Range Interpretation [...] RBCS (test TEST NOT PERFORMED code = 78564) K/UL COMMENTS (test code = TEST NOT PERFORMED 1016) CBC W/AUTO [id number] 00:00:00 Test Item Value Reference Range Interpretation [...] RBCS (test TEST NOT PERFORMED code = 01140) K/UL COMMENTS (test code = TEST NOT PERFORMED 1016) COMPREHENSIVE METABOLIC [id number] 04:59:13 Test Item Value Reference Range Interpretation Comments GLUCOSE (test code = 99 MG/DL 70-99 2216) BUN (test code = 14 MG/DL 6-20 2207) CREATININE (test 0.78 MG/DL 0.60-1.30 code = 2214) eGFR (2020 CKD-EPI) 100 >60 (test code = 62855) ML/MIN/1.73 CALC BUN/CREAT (test 18 RATIO 6-28 code = 2235) SODIUM (test code = 146 MEQ/L 106-940 6973) POTASSIUM (test code 4.9 MEQ/L 3.5-5.4 = [...] [Automated message] (test code = 220) The [employer] which generated this result transmitted ref erence range: <=1.2. T he reference range was not used to int erpret this result as normal/abnormal . ALKALINE PHOSPHATASE 77 U/L 40-112 (test code = 220) AST (test code = 29 U/L 9-40 2217) ALT (test code = 26 U/L 5-40 UNLESS OTH ERWISE 2218) INDICATED, ALL TESTING PERFORM [facility] [place] [place], [place] [id number] [place] [address] DIRECTOR: Devon REYIA NUMBER [id number] CAP ACCREDITATION N O. [id number] COMPREHENSIVE METABOLIC [id number] 00:00:00 Test Item Value Reference Range Interpretation Comments GLUCOSE (test code = 2217) 99 MG/DL BUN (test code = 2208) 14 MG/DL CREATININE (test code = 2214) 0.78 MG/DL eGFR (2020 CKD-EPI) (test 100 ML/MIN/1.73 code = 98147) CALC BUN/CREAT (test code = 18 RATIO [...] code = 2219) 26 U/L COMPREHENSIVE METABOLIC [id number] 00:00:00 Test Item Value Reference Range Interpretation Comments GLUCOSE (test code = 2217) 99 MG/DL BUN (test code = 2208) 14 MG/DL CREATININE (test code = 2214) 0.78 MG/DL eGFR (2020 CKD-EPI) (test 100 ML/MIN/1.73 code = 97215) CALC BUN/CREAT (test code = 18 RATIO [...] code = 2219) 26 U/L COMPREHENSIVE METABOLIC [id number] 00:00:00 Test Item Value Reference Range Interpretation Comments GLUCOSE (test code = 2217) 99 MG/DL BUN (test code = 2208) 14 MG/DL CREATININE (test code = 2214) 0.78 MG/DL eGFR (2020 CKD-EPI) (test 100 ML/MIN/1.73 code = 40042) CALC BUN/CREAT (test code = 18 RATIO [...] code = 2219) 26 U/L COMPREHENSIVE METABOLIC [id number] 00:00:00 Test Item Value Reference Range Interpretation Comments GLUCOSE (test code = 2216) 99 MG/DL BUN (test code = 2208) 14 MG/DL CREATININE (test code = 2214) 0.78 MG/DL eGFR (2020 CKD-EPI) (test 100 ML/MIN/1.73 code = 37696) CALC BUN/CREAT (test code = 18 RATIO [...] code = 2219) 26 U/L COMPREHENSIVE METABOLIC [id number] 00:00:00 Test Item Value Reference Range Interpretation Comments GLUCOSE (test code = 2217) 99 MG/DL BUN (test code = 2208) 14 MG/DL CREATININE (test code = 2214) 0.78 MG/DL eGFR (2020 CKD-EPI) (test 100 ML/MIN/1.73 code = 51605) CALC BUN/CREAT (test code = 18 RATIO [...] code = 2219) 26 U/L COMPREHENSIVE METABOLIC [id number] 00:00:00 Test Item Value Reference Range Interpretation Comments GLUCOSE (test code = 2217) 99 MG/DL BUN (test code = 2208) 14 MG/DL CREATININE (test code = 2214) 0.78 MG/DL eGFR (2020 CKD-EPI) (test 100 ML/MIN/1.73 code = 20586) CALC BUN/CREAT (test code = 18 RATIO [...] code = 2219) 26 U/L COMPREHENSIVE METABOLIC [id number] 00:00:00 Test Item Value Reference Range Interpretation Comments GLUCOSE (test code = 2217) 99 MG/DL BUN (test code = 2208) 14 MG/DL CREATININE (test code = 2214) 0.78 MG/DL eGFR (2020 CKD-EPI) (test 100 ML/MIN/1.73 code = 78677) CALC BUN/CREAT (test code = 18 RATIO [...] code = 2219) 26 U/L COMPREHENSIVE METABOLIC [id number] 00:00:00 Test Item Value Reference Range Interpretation Comments GLUCOSE (test code = 2217) 99 MG/DL BUN (test code = 2208) 14 MG/DL CREATININE (test code = 2214) 0.78 MG/DL eGFR (2020 CKD-EPI) (test 100 ML/MIN/1.73 code = 30950) CALC BUN/CREAT (test code = 18 RATIO [...] code = 2219) 26 U/L COMPREHENSIVE METABOLIC [id number] 00:00:00 Test Item Value Reference Range Interpretation Comments GLUCOSE (test code = 2217) 99 MG/DL BUN (test code = 2208) 14 MG/DL CREATININE (test code = 2214) 0.78 MG/DL eGFR (2020 CKD-EPI) (test 100 ML/MIN/1.73 code = 05529) CALC BUN/CREAT (test code = 18 RATIO [...] code = 2219) 26 U/L COMPREHENSIVE METABOLIC [id number] 00:00:00 Test Item Value Reference Range Interpretation Comments GLUCOSE (test code = 2217) 99 MG/DL BUN (test code = 2208) 14 MG/DL CREATININE (test code = 2214) 0.78 MG/DL eGFR (2020 CKD-EPI) (test 100 ML/MIN/1.73 code = 99835) CALC BUN/CREAT (test code = 18 RATIO [...] code = 2219) 26 U/L COMPREHENSIVE METABOLIC [id number] 00:00:00 Test Item Value Reference Range Interpretation Comments GLUCOSE (test code = 2217) 99 MG/DL BUN (test code = 2208) 14 MG/DL CREATININE (test code = 2214) 0.78 MG/DL eGFR (2020 CKD-EPI) (test 100 ML/MIN/1.73 code = 56982) CALC BUN/CREAT (test code = 18 RATIO [...] code = 2219) 26 U/L COMPREHENSIVE METABOLIC [id number] 00:00:00 Test Item Value Reference Range Interpretation Comments GLUCOSE (test code = 2217) 99 MG/DL BUN (test code = 2208) 14 MG/DL CREATININE (test code = 2214) 0.78 MG/DL eGFR (2020 CKD-EPI) (test 100 ML/MIN/1.73 code = 38120) CALC BUN/CREAT (test code = 18 RATIO [...] code = 2219) 26 U/L COMPREHENSIVE METABOLIC [id number] 00:00:00 Test Item Value Reference Range Interpretation Comments GLUCOSE (test code = 2217) 99 MG/DL BUN (test code = 2208) 14 MG/DL CREATININE (test code = 2214) 0.78 MG/DL eGFR (2020 CKD-EPI) (test 100 ML/MIN/1.73 code = 06106) CALC BUN/CREAT (test code = 18 RATIO [...] code = 2219) 26 U/L COMPREHENSIVE METABOLIC [id number] 00:00:00 Test Item Value Reference Range Interpretation Comments GLUCOSE (test code = 2217) 99 MG/DL BUN (test code = 2208) 14 MG/DL CREATININE (test code = 2214) 0.78 MG/DL eGFR (2020 CKD-EPI) (test 100 ML/MIN/1.73 code = 90268) CALC BUN/CREAT (test code = 18 RATIO [...] (test code = 2219) 26 U/L POCT [id number] 21:38:00 Test Item Value Reference Range Interpretation Comments POCT PREG (test code = 1605) negative On board controls acceptable with present C Line (test code = 3574) POCT PREG LOT # (test code = 3575) [id number] POCT PREG TEST DATE (test 03/15/22 code = 3576) Lab Interpretation (test code = Normal 39559-6) [facility]-PCR (HIGH RISK) 2020-02-08 00:00:00 Test Item Value Reference Range Interpretation Comments SARS-CoV-2 INTERPRETATION Negative (test code = 03656) SOURCE (test code = 91529) NASOPHARYNGEAL_SWAB _IN_VTM__UTM SARS-CoV-2 (COVID-19) by RT-PCR (HIGH RISK)2020-02-08 00:00:00 Test Item Value Reference Range Interpretation Comments SARS-CoV-2 INTERPRETATION Negative (test code = 93596) SOURCE (test code = 27393) NASOPHARYNGEAL_SWAB _IN_VTM__UTM SARS-CoV-2 (COVID-19) by RT-PCR (HIGH RISK)2020-02-08 00:00:00 Test Item Value Reference Range Interpretation Comments SARS-CoV-2 INTERPRETATION Negative (test code = 46420) SOURCE (test code = 87744) NASOPHARYNGEAL_SWAB _IN_VTM__UTM SARS-CoV-2 (COVID-19) by RT-PCR (HIGH RISK)2020-02-08 00:00:00 Test Item Value Reference Range Interpretation Comments SARS-CoV-2 INTERPRETATION Negative (test code = 46418) SOURCE (test code = 38777) NASOPHARYNGEAL_SWAB _IN_VTM__UTM SARS-CoV-2 (COVID-19) by RT-PCR (HIGH RISK)2020-02-08 00:00:00 Test Item Value Reference Range Interpretation Comments SARS-CoV-2 INTERPRETATION Negative (test code = 43924) SOURCE (test code = 94920) NASOPHARYNGEAL_SWAB _IN_VTM__UTM SARS-CoV-2 (COVID-19) by RT-PCR (HIGH RISK)2020-02-08 00:00:00 Test Item Value Reference Range Interpretation Comments SARS-CoV-2 INTERPRETATION Negative (test code = 12696) SOURCE (test code = 51484) NASOPHARYNGEAL_SWAB _IN_VTM__UTM SARS-CoV-2 (COVID-19) by RT-PCR (HIGH RISK)2020-02-08 00:00:00 Test Item Value Reference Range Interpretation Comments SARS-CoV-2 INTERPRETATION Negative (test code = 29271) SOURCE (test code = 69006) NASOPHARYNGEAL_SWAB _IN_VTM__UTM SARS-CoV-2 (COVID-19) by RT-PCR (HIGH RISK)2020-02-08 00:00:00 Test Item Value Reference Range Interpretation Comments SARS-CoV-2 INTERPRETATION Negative (test code = 75624) SOURCE (test code = 90298) NASOPHARYNGEAL_SWAB _IN_VTM__UTM QUANTIFERON TB GOLD PLUS [ADDED]2019-10-14 00:00:00 Test Item Value Reference Range Interpretation Comments QUANTIFERON TB GOLD PLUS (test NEGATIVE code = 83796) TB1-NIL (test code = 28968) 0.00 IU/ML TB2-NIL (test code = 78069) -0.01 IU/ML MITOGEN-NIL (test code = 88792) 7.87 IU/ML NIL (test code = 44726) 0.02 IU/ML QUANTIFERON TB GOLD PLUS [ADDED]2019-10-14 00:00:00 Test Item Value Reference Range Interpretation Comments QUANTIFERON TB GOLD PLUS (test NEGATIVE code = 28423) TB1-NIL (test code = 31174) 0.00 IU/ML TB2-NIL (test code = 94853) -0.01 IU/ML MITOGEN-NIL (test code = 60952) 7.87 IU/ML NIL (test code = 87419) 0.02 IU/ML QUANTIFERON TB GOLD PLUS [ADDED]2019-10-14 00:00:00 Test Item Value Reference Range Interpretation Comments QUANTIFERON TB GOLD PLUS (test NEGATIVE code = 05215) TB1-NIL (test code = 83328) 0.00 IU/ML TB2-NIL (test code = 88607) -0.01 IU/ML MITOGEN-NIL (test code = 81677) 7.87 IU/ML NIL (test code = 39409) 0.02 IU/ML QUANTIFERON TB GOLD PLUS [ADDED]2019-10-14 00:00:00 Test Item Value Reference Range Interpretation Comments QUANTIFERON TB GOLD PLUS (test NEGATIVE code = 88453) TB1-NIL (test code = 01691) 0.00 IU/ML TB2-NIL (test code = 61574) -0.01 IU/ML MITOGEN-NIL (test code = 14714) 7.87 IU/ML NIL (test code = 08173) 0.02 IU/ML QUANTIFERON TB GOLD PLUS [ADDED]2019-10-14 00:00:00 Test Item Value Reference Range Interpretation Comments QUANTIFERON TB GOLD PLUS (test NEGATIVE code = 00255) TB1-NIL (test code = 01344) 0.00 IU/ML TB2-NIL (test code = 87186) -0.01 IU/ML MITOGEN-NIL (test code = 94592) 7.87 IU/ML NIL (test code = 28304) 0.02 IU/ML QUANTIFERON TB GOLD PLUS [ADDED]2019-10-14 00:00:00 Test Item Value Reference Range Interpretation Comments QUANTIFERON TB GOLD PLUS (test NEGATIVE code = 91380) TB1-NIL (test code = 38703) 0.00 IU/ML TB2-NIL (test code = 95051) -0.01 IU/ML MITOGEN-NIL (test code = 83454) 7.87 IU/ML NIL (test code = 16711) 0.02 IU/ML QUANTIFERON TB GOLD PLUS [ADDED]2019-10-14 00:00:00 Test Item Value Reference Range Interpretation Comments QUANTIFERON TB GOLD PLUS (test NEGATIVE code = 18082) TB1-NIL (test code = 13541) 0.00 IU/ML TB2-NIL (test code = 55187) -0.01 IU/ML MITOGEN-NIL (test code = 55572) 7.87 IU/ML NIL (test code = 91431) 0.02 IU/ML QUANTIFERON TB GOLD PLUS [ADDED]2019-10-14 00:00:00 Test Item Value Reference Range Interpretation Comments QUANTIFERON TB GOLD PLUS (test NEGATIVE code = 18180) TB1-NIL (test code = 56685) 0.00 IU/ML TB2-NIL (test code = 01854) -0.01 IU/ML MITOGEN-NIL (test code = 92804) 7.87 IU/ML NIL (test code = 10886) 0.02 IU/ML CBC W/AUTO [id number] 00:00:00 Test Item Value Reference Range Interpretation [...] code = 1015) 283 K/UL CBC W/AUTO [id number] 00:00:00 Test Item Value Reference Range Interpretation [...] code = 1015) 283 K/UL COMPREHENSIVE METABOLIC [id number] 00:00:00 Test Item Value Reference Range Interpretation Comments GLUCOSE (test code = 2217) 101 MG/DL BUN (test code = 2208) 9 MG/DL CREATININE (test code = 2214) 0.59 MG/DL eGFR AMER. (test code 138 ML/MIN/1.73 = 10231) eGFR NON- AMER. (test 119 ML/MIN/1.73 code = 13586) CALC BUN/CREAT (test code = 15 RATIO [...] code = 2219) 35 U/L ACUTE HEPATITIS [id number] 00:00:00 Test Item Value Reference Range Interpretation Comments HEPATITIS A IgM (test code = NON-REACTIVE 64560) HEPATITIS B CORE IgM (test code NON-REACTIVE = 4683) HEPATITIS B SURF AG (test code = NON-REACTIVE 2739) HEPATITIS C ANTIBODY (test code NON-REACTIVE = 4675) INTERPRETATION HEPATITIS A: (NOTE) (test code = 2552) INTERPRETATION HEPATITIS B: (NOTE) (test code = 76419) INTERPRETATION HEPATITIS C: (NOTE) (test code = 19996) CBC W/AUTO [id number] 00:00:00 Test Item Value Reference Range Interpretation [...] code = 1015) 283 K/UL CBC W/AUTO [id number] 00:00:00 Test Item Value Reference Range Interpretation [...] code = 1015) 283 K/UL CBC W/AUTO [id number] 00:00:00 Test Item Value Reference Range Interpretation [...] code = 1015) 283 K/UL CBC W/AUTO [id number] 00:00:00 Test Item Value Reference Range Interpretation [...] code = 1015) 283 K/UL COMPREHENSIVE METABOLIC [id number] 00:00:00 Test Item Value Reference Range Interpretation Comments GLUCOSE (test code = 2217) 101 MG/DL BUN (test code = 2208) 9 MG/DL CREATININE (test code = 2214) 0.59 MG/DL eGFR AMER. (test code 138 ML/MIN/1.73 = 91832) eGFR NON- AMER. (test 119 ML/MIN/1.73 code = 46331) CALC BUN/CREAT (test code = 15 RATIO [...] code = 2219) 35 U/L COMPREHENSIVE METABOLIC [id number] 00:00:00 Test Item Value Reference Range Interpretation Comments GLUCOSE (test code = 2217) 101 MG/DL BUN (test code = 2208) 9 MG/DL CREATININE (test code = 2214) 0.59 MG/DL eGFR AMER. (test code 138 ML/MIN/1.73 = 72949) eGFR NON- AMER. (test 119 ML/MIN/1.73 code = 20906) CALC BUN/CREAT (test code = 15 RATIO [...] code = 2219) 35 U/L ACUTE HEPATITIS [id number] 00:00:00 Test Item Value Reference Range Interpretation Comments HEPATITIS A IgM (test code = NON-REACTIVE 86774) HEPATITIS B CORE IgM (test code NON-REACTIVE = 4644) HEPATITIS B SURF AG (test code = NON-REACTIVE 2739) HEPATITIS C ANTIBODY (test code NON-REACTIVE = 4675) INTERPRETATION HEPATITIS A: (NOTE) (test code = 2552) INTERPRETATION HEPATITIS B: (NOTE) (test code = 99689) INTERPRETATION HEPATITIS C: (NOTE) (test code = 02134) ACUTE HEPATITIS [id number] 00:00:00 Test Item Value Reference Range Interpretation Comments HEPATITIS A IgM (test code = NON-REACTIVE 09359) HEPATITIS B CORE IgM (test code NON-REACTIVE = 4644) HEPATITIS B SURF AG (test code = NON-REACTIVE 2739) HEPATITIS C ANTIBODY (test code NON-REACTIVE = 4675) INTERPRETATION HEPATITIS A: (NOTE) (test code = 2552) INTERPRETATION HEPATITIS B: (NOTE) (test code = 14687) INTERPRETATION HEPATITIS C: (NOTE) (test code = 92288) CBC W/AUTO [id number] 00:00:00 Test Item Value Reference Range Interpretation [...] code = 1015) 283 K/UL CBC W/AUTO [id number] 00:00:00 Test Item Value Reference Range Interpretation [...] code = 1015) 283 K/UL COMPREHENSIVE METABOLIC [id number] 00:00:00 Test Item Value Reference Range Interpretation Comments GLUCOSE (test code = 2217) 101 MG/DL BUN (test code = 2208) 9 MG/DL CREATININE (test code = 2214) 0.59 MG/DL eGFR AMER. (test code 138 ML/MIN/1.73 = 48455) eGFR NON- AMER. (test 119 ML/MIN/1.73 code = 78838) CALC BUN/CREAT (test code = 15 RATIO [...] code = 2219) 35 U/L CBC W/AUTO [id number] 00:00:00 Test Item Value Reference Range Interpretation [...] code = 1015) 283 K/UL CBC W/AUTO [id number] 00:00:00 Test Item Value Reference Range Interpretation [...] code = 1015) 283 K/UL COMPREHENSIVE METABOLIC [id number] 00:00:00 Test Item Value Reference Range Interpretation Comments GLUCOSE (test code = 2217) 101 MG/DL BUN (test code = 2208) 9 MG/DL CREATININE (test code = 2214) 0.59 MG/DL eGFR AMER. (test code 138 ML/MIN/1.73 = 60284) eGFR NON- AMER. (test 119 ML/MIN/1.73 code = 27996) CALC BUN/CREAT (test code = 15 RATIO [...] code = 2219) 35 U/L COMPREHENSIVE METABOLIC [id number] 00:00:00 Test Item Value Reference Range Interpretation Comments GLUCOSE (test code = 2217) 101 MG/DL BUN (test code = 2208) 9 MG/DL CREATININE (test code = 2214) 0.59 MG/DL eGFR AMER. (test code 138 ML/MIN/1.73 = 40031) eGFR NON- AMER. (test 119 ML/MIN/1.73 code = 68924) CALC BUN/CREAT (test code = 15 RATIO [...] code = 2219) 35 U/L ACUTE HEPATITIS [id number] 00:00:00 Test Item Value Reference Range Interpretation Comments HEPATITIS A IgM (test code = NON-REACTIVE 00691) HEPATITIS B CORE IgM (test code NON-REACTIVE = 5417) HEPATITIS B SURF AG (test code = NON-REACTIVE 5965) HEPATITIS C ANTIBODY (test code NON-REACTIVE = 9882) INTERPRETATION HEPATITIS A: (NOTE) (test code = 2552) INTERPRETATION HEPATITIS B: (NOTE) (test code = 56013) INTERPRETATION HEPATITIS C: (NOTE) (test code = 74174) ACUTE HEPATITIS [id number] 00:00:00 Test Item Value Reference Range Interpretation Comments HEPATITIS A IgM (test code = NON-REACTIVE 88319) HEPATITIS B CORE IgM (test code NON-REACTIVE = 4644) HEPATITIS B SURF AG (test code = NON-REACTIVE 2739) HEPATITIS C ANTIBODY (test code NON-REACTIVE = 4675) INTERPRETATION HEPATITIS A: (NOTE) (test code = 2552) INTERPRETATION HEPATITIS B: (NOTE) (test code = 49961) INTERPRETATION HEPATITIS C: (NOTE) (test code = 37932) ACUTE HEPATITIS [id number] 00:00:00 Test Item Value Reference Range Interpretation Comments HEPATITIS A IgM (test code = NON-REACTIVE 33870) HEPATITIS B CORE IgM (test code NON-REACTIVE = 4644) HEPATITIS B SURF AG (test code = NON-REACTIVE 2739) HEPATITIS C ANTIBODY (test code NON-REACTIVE = 4675) INTERPRETATION HEPATITIS A: (NOTE) (test code = 2552) INTERPRETATION HEPATITIS B: (NOTE) (test code = 58834) INTERPRETATION HEPATITIS C: (NOTE) (test code = 74070) CBC W/AUTO [id number] 00:00:00 Test Item Value Reference Range Interpretation [...] code = 1015) 283 K/UL CBC W/AUTO [id number] 00:00:00 Test Item Value Reference Range Interpretation [...] code = 1015) 283 K/UL CBC W/AUTO [id number] 00:00:00 Test Item Value Reference Range Interpretation [...] code = 1015) 283 K/UL COMPREHENSIVE METABOLIC [id number] 00:00:00 Test Item Value Reference Range Interpretation Comments GLUCOSE (test code = 2217) 101 MG/DL BUN (test code = 2208) 9 MG/DL CREATININE (test code = 2214) 0.59 MG/DL eGFR AMER. (test code 138 ML/MIN/1.73 = 95468) eGFR NON- AMER. (test 119 ML/MIN/1.73 code = 98694) CALC BUN/CREAT (test code = 15 RATIO [...] code = 2219) 35 U/L COMPREHENSIVE METABOLIC [id number] 00:00:00 Test Item Value Reference Range Interpretation Comments GLUCOSE (test code = 2217) 101 MG/DL BUN (test code = 2208) 9 MG/DL CREATININE (test code = 2214) 0.59 MG/DL eGFR AMER. (test code 138 ML/MIN/1.73 = 60172) eGFR NON- AMER. (test 119 ML/MIN/1.73 code = 29342) CALC BUN/CREAT (test code = 15 RATIO [...] code = 2219) 35 U/L ACUTE HEPATITIS [id number] 00:00:00 Test Item Value Reference Range Interpretation Comments HEPATITIS A IgM (test code = NON-REACTIVE 28250) HEPATITIS B CORE IgM (test code NON-REACTIVE = 9973) HEPATITIS B SURF AG (test code = NON-REACTIVE 8382) HEPATITIS C ANTIBODY (test code NON-REACTIVE = 7683) INTERPRETATION HEPATITIS A: (NOTE) (test code = 2552) INTERPRETATION HEPATITIS B: (NOTE) (test code = 39088) INTERPRETATION HEPATITIS C: (NOTE) (test code = 72920) ACUTE HEPATITIS [id number] 00:00:00 Test Item Value Reference Range Interpretation Comments HEPATITIS A IgM (test code = NON-REACTIVE 83800) HEPATITIS B CORE IgM (test code NON-REACTIVE = 4644) HEPATITIS B SURF AG (test code = NON-REACTIVE 4489) HEPATITIS C ANTIBODY (test code NON-REACTIVE = 4675) INTERPRETATION HEPATITIS A: (NOTE) (test code = 2552) INTERPRETATION HEPATITIS B: (NOTE) (test code = 37621) INTERPRETATION HEPATITIS C: (NOTE) (test code = 13720) CBC W/AUTO [id number] 00:00:00 Test Item Value Reference Range Interpretation [...] code = 1015) 283 K/UL CBC W/AUTO [id number] 00:00:00 Test Item Value Reference Range Interpretation [...] code = 1015) 283 K/UL CBC W/AUTO [id number] 00:00:00 Test Item Value Reference Range Interpretation [...] code = 1015) 283 K/UL COMPREHENSIVE METABOLIC [id number] 00:00:00 Test Item Value Reference Range Interpretation Comments GLUCOSE (test code = 2217) 101 MG/DL BUN (test code = 2208) 9 MG/DL CREATININE (test code = 2214) 0.59 MG/DL eGFR AMER. (test code 138 ML/MIN/1.73 = 94254) eGFR NON- AMER. (test 119 ML/MIN/1.73 code = 93161) CALC BUN/CREAT (test code = 15 RATIO [...] code = 2219) 35 U/L COMPREHENSIVE METABOLIC [id number] 00:00:00 Test Item Value Reference Range Interpretation Comments GLUCOSE (test code = 2217) 101 MG/DL BUN (test code = 2208) 9 MG/DL CREATININE (test code = 2214) 0.59 MG/DL eGFR AMER. (test code 138 ML/MIN/1.73 = 36810) eGFR NON- AMER. (test 119 ML/MIN/1.73 code = 39236) CALC BUN/CREAT (test code = 15 RATIO [...] code = 2219) 35 U/L ACUTE HEPATITIS [id number] 00:00:00 Test Item Value Reference Range Interpretation Comments HEPATITIS A IgM (test code = NON-REACTIVE 57409) HEPATITIS B CORE IgM (test code NON-REACTIVE = 4644) HEPATITIS B SURF AG (test code = NON-REACTIVE 9) HEPATITIS C ANTIBODY (test code NON-REACTIVE = 4675) INTERPRETATION HEPATITIS A: (NOTE) (test code = 2552) INTERPRETATION HEPATITIS B: (NOTE) (test code = 46605) INTERPRETATION HEPATITIS C: (NOTE) (test code = 39648) ACUTE HEPATITIS [id number] 00:00:00 Test Item Value Reference Range Interpretation Comments HEPATITIS A IgM (test code = NON-REACTIVE 31384) HEPATITIS B CORE IgM (test code NON-REACTIVE = 4644) HEPATITIS B SURF AG (test code = NON-REACTIVE 2739) HEPATITIS C ANTIBODY (test code NON-REACTIVE = 4675) INTERPRETATION HEPATITIS A: (NOTE) (test code = 2552) INTERPRETATION HEPATITIS B: (NOTE) (test code = 79036) INTERPRETATION HEPATITIS C: (NOTE) (test code = 78236) CBC W/AUTO [id number] 00:00:00 Test Item Value Reference Range Interpretation [...] code = 1015) 283 K/UL CBC W/AUTO [id number] 00:00:00 Test Item Value Reference Range Interpretation [...] code = 1015) 283 K/UL CBC W/AUTO [id number] 00:00:00 Test Item Value Reference Range Interpretation [...] code = 1015) 283 K/UL COMPREHENSIVE METABOLIC [id number] 00:00:00 Test Item Value Reference Range Interpretation Comments GLUCOSE (test code = 2217) 101 MG/DL BUN (test code = 2208) 9 MG/DL CREATININE (test code = 2214) 0.59 MG/DL eGFR AMER. (test code 138 ML/MIN/1.73 = 20441) eGFR NON- AMER. (test 119 ML/MIN/1.73 code = 16877) CALC BUN/CREAT (test code = 15 RATIO [...] code = 2219) 35 U/L COMPREHENSIVE METABOLIC [id number] 00:00:00 Test Item Value Reference Range Interpretation Comments GLUCOSE (test code = 2217) 101 MG/DL BUN (test code = 2208) 9 MG/DL CREATININE (test code = 2214) 0.59 MG/DL eGFR AMER. (test code 138 ML/MIN/1.73 = 46047) eGFR NON- AMER. (test 119 ML/MIN/1.73 code = 45971) CALC BUN/CREAT (test code = 15 RATIO [...] code = 2219) 35 U/L ACUTE HEPATITIS [id number] 00:00:00 Test Item Value Reference Range Interpretation Comments HEPATITIS A IgM (test code = NON-REACTIVE 21771) HEPATITIS B CORE IgM (test code NON-REACTIVE = 4644) HEPATITIS B SURF AG (test code = NON-REACTIVE 2739) HEPATITIS C ANTIBODY (test code NON-REACTIVE = 4675) INTERPRETATION HEPATITIS A: (NOTE) (test code = 2552) INTERPRETATION HEPATITIS B: (NOTE) (test code = 95340) INTERPRETATION HEPATITIS C: (NOTE) (test code = 74041) ACUTE HEPATITIS [id number] 00:00:00 Test Item Value Reference Range Interpretation Comments HEPATITIS A IgM (test code = NON-REACTIVE 85733) HEPATITIS B CORE IgM (test code NON-REACTIVE = 4644) HEPATITIS B SURF AG (test code = NON-REACTIVE 2739) HEPATITIS C ANTIBODY (test code NON-REACTIVE = 4675) INTERPRETATION HEPATITIS A: (NOTE) (test code = 2552) INTERPRETATION HEPATITIS B: (NOTE) (test code = 08057) INTERPRETATION HEPATITIS C: (NOTE) (test code = 93575) CBC W/AUTO [id number] 00:00:00 Test Item Value Reference Range Interpretation [...] code = 1015) 283 K/UL CBC W/AUTO [id number] 00:00:00 Test Item Value Reference Range Interpretation [...] code = 1015) 283 K/UL CBC W/AUTO [id number] 00:00:00 Test Item Value Reference Range Interpretation [...] code = 1015) 283 K/UL COMPREHENSIVE METABOLIC [id number] 00:00:00 Test Item Value Reference Range Interpretation Comments GLUCOSE (test code = 2217) 101 MG/DL BUN (test code = 2208) 9 MG/DL CREATININE (test code = 2214) 0.59 MG/DL eGFR AMER. (test code 138 ML/MIN/1.73 = 40312) eGFR NON- AMER. (test 119 ML/MIN/1.73 code = 97991) CALC BUN/CREAT (test code = 15 RATIO [...] code = 2219) 35 U/L COMPREHENSIVE METABOLIC [id number] 00:00:00 Test Item Value Reference Range Interpretation Comments GLUCOSE (test code = 2217) 101 MG/DL BUN (test code = 2208) 9 MG/DL CREATININE (test code = 2214) 0.59 MG/DL eGFR AMER. (test code 138 ML/MIN/1.73 = 42105) eGFR NON- AMER. (test 119 ML/MIN/1.73 code = 36225) CALC BUN/CREAT (test code = 15 RATIO [...] code = 2219) 35 U/L ACUTE HEPATITIS [id number] 00:00:00 Test Item Value Reference Range Interpretation Comments HEPATITIS A IgM (test code = NON-REACTIVE 39666) HEPATITIS B CORE IgM (test code NON-REACTIVE = 4644) HEPATITIS B SURF AG (test code = NON-REACTIVE 2739) HEPATITIS C ANTIBODY (test code NON-REACTIVE = 4675) INTERPRETATION HEPATITIS A: (NOTE) (test code = 2552) INTERPRETATION HEPATITIS B: (NOTE) (test code = 70506) INTERPRETATION HEPATITIS C: (NOTE) (test code = 19169) ACUTE HEPATITIS [id number] 00:00:00 Test Item Value Reference Range Interpretation Comments HEPATITIS A IgM (test code = NON-REACTIVE 12881) HEPATITIS B CORE IgM (test code NON-REACTIVE = 4644) HEPATITIS B SURF AG (test code = NON-REACTIVE 2739) HEPATITIS C ANTIBODY (test code NON-REACTIVE = 4675) INTERPRETATION HEPATITIS A: (NOTE) (test code = 2552) INTERPRETATION HEPATITIS B: (NOTE) (test code = 35689) INTERPRETATION HEPATITIS C: (NOTE) (test code = 91300) COMPREHENSIVE METABOLIC [id number] 00:00:00 Test Item Value Reference Range Interpretation Comments GLUCOSE (test code = 2217) 88 MG/DL BUN (test code = 2208) 9 MG/DL CREATININE (test code = 2214) 0.71 MG/DL eGFR AMER. (test code 131 ML/MIN/1.73 = 01728) eGFR NON- AMER. (test 113 ML/MIN/1.73 code = 72044) CALC BUN/CREAT (test code = 13 RATIO [...] (test code = 2219) 45 U/L LIPID [id number] 00:00:00 Test Item Value Reference Range Interpretation Comments CHOLESTEROL (test code = 2210) 166 MG/DL TRIGLYCERIDES (test code = 2232) 85 MG/DL HDL CHOLESTEROL (test code = 2220) 61 MG/DL CALC LDL CHOL (test code = 2237) 88 MG/DL RISK RATIO LDL/HDL (test code = 1.44 RATIO 2238) CBC W/AUTO [id number] 00:00:00 Test Item Value Reference Range Interpretation [...] code = 1015) 278 K/UL CBC W/AUTO [id number] 00:00:00 Test Item Value Reference Range Interpretation [...] (test code = 1015) 278 K/UL HEMOGLOBIN [id number] 00:00:00 Test Item Value Reference Range Interpretation Comments HEMOGLOBIN A1c (test code = 68960) 5.4 % HEMOGLOBIN [id number] 00:00:00 Test Item Value Reference Range Interpretation Comments HEMOGLOBIN A1c (test code = 48052) 5.4 % [id number] 00:00:00 Test Item Value Reference Range Interpretation Comments TSH (test code = 2821) 2.1 UIU/ML [id number] 00:00:00 Test Item Value Reference Range Interpretation Comments TSH (test code = 2821) 2.1 UIU/ML COMPREHENSIVE METABOLIC [id number] 00:00:00 Test Item Value Reference Range Interpretation Comments GLUCOSE (test code = 2217) 88 MG/DL BUN (test code = 2208) 9 MG/DL CREATININE (test code = 2214) 0.71 MG/DL eGFR AMER. (test code 131 ML/MIN/1.73 = 72085) eGFR NON- AMER. (test 113 ML/MIN/1.73 code = 02897) CALC BUN/CREAT (test code = 13 RATIO [...] code = 2219) 45 U/L COMPREHENSIVE METABOLIC [id number] 00:00:00 Test Item Value Reference Range Interpretation Comments GLUCOSE (test code = 2217) 88 MG/DL BUN (test code = 2208) 9 MG/DL CREATININE (test code = 2214) 0.71 MG/DL eGFR AMER. (test code 131 ML/MIN/1.73 = 76452) eGFR NON- AMER. (test 113 ML/MIN/1.73 code = 09420) CALC BUN/CREAT (test code = 13 RATIO [...] (test code = 2219) 45 U/L LIPID [id number] 00:00:00 Test Item Value Reference Range Interpretation Comments CHOLESTEROL (test code = 2210) 166 MG/DL TRIGLYCERIDES (test code = 2232) 85 MG/DL HDL CHOLESTEROL (test code = 2220) 61 MG/DL CALC LDL CHOL (test code = 2237) 88 MG/DL RISK RATIO LDL/HDL (test code = 1.44 RATIO 2238) LIPID [id number] 00:00:00 Test Item Value Reference Range Interpretation Comments CHOLESTEROL (test code = 2210) 166 MG/DL TRIGLYCERIDES (test code = 2232) 85 MG/DL HDL CHOLESTEROL (test code = 2220) 61 MG/DL CALC LDL CHOL (test code = 2237) 88 MG/DL RISK RATIO LDL/HDL (test code = 1.44 RATIO 2238) CBC W/AUTO [id number] 00:00:00 Test Item Value Reference Range Interpretation [...] code = 1015) 278 K/UL CBC W/AUTO [id number] 00:00:00 Test Item Value Reference Range Interpretation [...] code = 1015) 278 K/UL CBC W/AUTO [id number] 00:00:00 Test Item Value Reference Range Interpretation [...] (test code = 1015) 278 K/UL HEMOGLOBIN [id number] 00:00:00 Test Item Value Reference Range Interpretation Comments HEMOGLOBIN A1c (test code = 13267) 5.4 % HEMOGLOBIN [id number] 00:00:00 Test Item Value Reference Range Interpretation Comments HEMOGLOBIN A1c (test code = 16691) 5.4 % HEMOGLOBIN [id number] 00:00:00 Test Item Value Reference Range Interpretation Comments HEMOGLOBIN A1c (test code = 79794) 5.4 % [id number] 00:00:00 Test Item Value Reference Range Interpretation Comments TSH (test code = 2821) 2.1 UIU/ML [id number] 00:00:00 Test Item Value Reference Range Interpretation Comments TSH (test code = 2821) 2.1 UIU/ML [id number] 00:00:00 Test Item Value Reference Range Interpretation Comments TSH (test code = 2821) 2.1 UIU/ML COMPREHENSIVE METABOLIC [id number] 00:00:00 Test Item Value Reference Range Interpretation Comments GLUCOSE (test code = 2217) 88 MG/DL BUN (test code = 2208) 9 MG/DL CREATININE (test code = 2214) 0.71 MG/DL eGFR AMER. (test code 131 ML/MIN/1.73 = 03246) eGFR NON- AMER. (test 113 ML/MIN/1.73 code = 30258) CALC BUN/CREAT (test code = 13 RATIO [...] code = 2219) 45 U/L COMPREHENSIVE METABOLIC [id number] 00:00:00 Test Item Value Reference Range Interpretation Comments GLUCOSE (test code = 2217) 88 MG/DL BUN (test code = 2208) 9 MG/DL CREATININE (test code = 2214) 0.71 MG/DL eGFR AMER. (test code 131 ML/MIN/1.73 = 16121) eGFR NON- AMER. (test 113 ML/MIN/1.73 code = 75770) CALC BUN/CREAT (test code = 13 RATIO [...] code = 2219) 45 U/L COMPREHENSIVE METABOLIC [id number] 00:00:00 Test Item Value Reference Range Interpretation Comments GLUCOSE (test code = 2217) 88 MG/DL BUN (test code = 2208) 9 MG/DL CREATININE (test code = 2214) 0.71 MG/DL eGFR AMER. (test code 131 ML/MIN/1.73 = 03192) eGFR NON- AMER. (test 113 ML/MIN/1.73 code = 42313) CALC BUN/CREAT (test code = 13 RATIO [...] (test code = 2219) 45 U/L LIPID [id number] 00:00:00 Test Item Value Reference Range Interpretation Comments CHOLESTEROL (test code = 2210) 166 MG/DL TRIGLYCERIDES (test code = 2232) 85 MG/DL HDL CHOLESTEROL (test code = 2220) 61 MG/DL CALC LDL CHOL (test code = 2237) 88 MG/DL RISK RATIO LDL/HDL (test code = 1.44 RATIO 2238) LIPID [id number] 00:00:00 Test Item Value Reference Range Interpretation Comments CHOLESTEROL (test code = 2210) 166 MG/DL TRIGLYCERIDES (test code = 2232) 85 MG/DL HDL CHOLESTEROL (test code = 2220) 61 MG/DL CALC LDL CHOL (test code = 2237) 88 MG/DL RISK RATIO LDL/HDL (test code = 1.44 RATIO 2238) LIPID [id number] 00:00:00 Test Item Value Reference Range Interpretation Comments CHOLESTEROL (test code = 2210) 166 MG/DL TRIGLYCERIDES (test code = 2232) 85 MG/DL HDL CHOLESTEROL (test code = 2220) 61 MG/DL CALC LDL CHOL (test code = 2237) 88 MG/DL RISK RATIO LDL/HDL (test code = 1.44 RATIO 2238) CBC W/AUTO [id number] 00:00:00 Test Item Value Reference Range Interpretation [...] code = 1015) 278 K/UL CBC W/AUTO [id number] 00:00:00 Test Item Value Reference Range Interpretation [...] code = 1015) 278 K/UL CBC W/AUTO [id number] 00:00:00 Test Item Value Reference Range Interpretation [...] (test code = 1015) 278 K/UL HEMOGLOBIN [id number] 00:00:00 Test Item Value Reference Range Interpretation Comments HEMOGLOBIN A1c (test code = 15112) 5.4 % HEMOGLOBIN [id number] 00:00:00 Test Item Value Reference Range Interpretation Comments HEMOGLOBIN A1c (test code = 96089) 5.4 % HEMOGLOBIN [id number] 00:00:00 Test Item Value Reference Range Interpretation Comments HEMOGLOBIN A1c (test code = 45251) 5.4 % [id number] 00:00:00 Test Item Value Reference Range Interpretation Comments TSH (test code = 2821) 2.1 UIU/ML [id number] 00:00:00 Test Item Value Reference Range Interpretation Comments TSH (test code = 2821) 2.1 UIU/ML [id number] 00:00:00 Test Item Value Reference Range Interpretation Comments TSH (test code = 2821) 2.1 UIU/ML CBC W/AUTO [id number] 00:00:00 Test Item Value Reference Range Interpretation [...] code = 1015) 278 K/UL CBC W/AUTO [id number] 00:00:00 Test Item Value Reference Range Interpretation [...] (test code = 1015) 278 K/UL HEMOGLOBIN [id number] 00:00:00 Test Item Value Reference Range Interpretation Comments HEMOGLOBIN A1c (test code = 16933) 5.4 % COMPREHENSIVE METABOLIC [id number] 00:00:00 Test Item Value Reference Range Interpretation Comments GLUCOSE (test code = 2217) 88 MG/DL BUN (test code = 2208) 9 MG/DL CREATININE (test code = 2214) 0.71 MG/DL eGFR AMER. (test code 131 ML/MIN/1.73 = 95875) eGFR NON- AMER. (test 113 ML/MIN/1.73 code = 19703) CALC BUN/CREAT (test code = 13 RATIO [...] (test code = 2219) 45 U/L HEMOGLOBIN [id number] 00:00:00 Test Item Value Reference Range Interpretation Comments HEMOGLOBIN A1c (test code = 23252) 5.4 % COMPREHENSIVE METABOLIC [id number] 00:00:00 Test Item Value Reference Range Interpretation Comments GLUCOSE (test code = 2217) 88 MG/DL BUN (test code = 2208) 9 MG/DL CREATININE (test code = 2214) 0.71 MG/DL eGFR AMER. (test code 131 ML/MIN/1.73 = 59731) eGFR NON- AMER. (test 113 ML/MIN/1.73 code = 06702) CALC BUN/CREAT (test code = 13 RATIO [...] ALT (test code = 2219) 45 U/L [id number] 00:00:00 Test Item Value Reference Range Interpretation Comments TSH (test code = 2821) 2.1 UIU/ML LIPID [id number] 00:00:00 Test Item Value Reference Range Interpretation Comments CHOLESTEROL (test code = 2210) 166 MG/DL TRIGLYCERIDES (test code = 2232) 85 MG/DL HDL CHOLESTEROL (test code = 2220) 61 MG/DL CALC LDL CHOL (test code = 2237) 88 MG/DL RISK RATIO LDL/HDL (test code = 1.44 RATIO 2238) LIPID [id number] 00:00:00 Test Item Value Reference Range Interpretation Comments CHOLESTEROL (test code = 2210) 166 MG/DL TRIGLYCERIDES (test code = 2232) 85 MG/DL HDL CHOLESTEROL (test code = 2220) 61 MG/DL CALC LDL CHOL (test code = 2237) 88 MG/DL RISK RATIO LDL/HDL (test code = 1.44 RATIO 2238) [id number] 00:00:00 Test Item Value Reference Range Interpretation Comments TSH (test code = 2821) 2.1 UIU/ML CBC W/AUTO [id number] 00:00:00 Test Item Value Reference Range Interpretation [...] code = 1015) 278 K/UL CBC W/AUTO [id number] 00:00:00 Test Item Value Reference Range Interpretation [...] code = 1015) 278 K/UL CBC W/AUTO [id number] 00:00:00 Test Item Value Reference Range Interpretation [...] (test code = 1015) 278 K/UL HEMOGLOBIN [id number] 00:00:00 Test Item Value Reference Range Interpretation Comments HEMOGLOBIN A1c (test code = 81181) 5.4 % HEMOGLOBIN [id number] 00:00:00 Test Item Value Reference Range Interpretation Comments HEMOGLOBIN A1c (test code = 21824) 5.4 % HEMOGLOBIN [id number] 00:00:00 Test Item Value Reference Range Interpretation Comments HEMOGLOBIN A1c (test code = 71630) 5.4 % [id number] 00:00:00 Test Item Value Reference Range Interpretation Comments TSH (test code = 2821) 2.1 UIU/ML [id number] 00:00:00 Test Item Value Reference Range Interpretation Comments TSH (test code = 2821) 2.1 UIU/ML [id number] 00:00:00 Test Item Value Reference Range Interpretation Comments TSH (test code = 2821) 2.1 UIU/ML COMPREHENSIVE METABOLIC [id number] 00:00:00 Test Item Value Reference Range Interpretation Comments GLUCOSE (test code = 2217) 88 MG/DL BUN (test code = 2208) 9 MG/DL CREATININE (test code = 2214) 0.71 MG/DL eGFR AMER. (test code 131 ML/MIN/1.73 = 26797) eGFR NON- AMER. (test 113 ML/MIN/1.73 code = 33817) CALC BUN/CREAT (test code = 13 RATIO [...] code = 2219) 45 U/L COMPREHENSIVE METABOLIC [id number] 00:00:00 Test Item Value Reference Range Interpretation Comments GLUCOSE (test code = 2217) 88 MG/DL BUN (test code = 2208) 9 MG/DL CREATININE (test code = 2214) 0.71 MG/DL eGFR AMER. (test code 131 ML/MIN/1.73 = 74197) eGFR NON- AMER. (test 113 ML/MIN/1.73 code = 91625) CALC BUN/CREAT (test code = 13 RATIO [...] (test code = 2219) 45 U/L LIPID [id number] 00:00:00 Test Item Value Reference Range Interpretation Comments CHOLESTEROL (test code = 2210) 166 MG/DL TRIGLYCERIDES (test code = 2232) 85 MG/DL HDL CHOLESTEROL (test code = 2220) 61 MG/DL CALC LDL CHOL (test code = 2237) 88 MG/DL RISK RATIO LDL/HDL (test code = 1.44 RATIO 2238) LIPID [id number] 00:00:00 Test Item Value Reference Range Interpretation Comments CHOLESTEROL (test code = 2210) 166 MG/DL TRIGLYCERIDES (test code = 2232) 85 MG/DL HDL CHOLESTEROL (test code = 2220) 61 MG/DL CALC LDL CHOL (test code = 2237) 88 MG/DL RISK RATIO LDL/HDL (test code = 1.44 RATIO 2238) CBC W/AUTO [id number] 00:00:00 Test Item Value Reference Range Interpretation [...] code = 1015) 278 K/UL CBC W/AUTO [id number] 00:00:00 Test Item Value Reference Range Interpretation [...] code = 1015) 278 K/UL CBC W/AUTO [id number] 00:00:00 Test Item Value Reference Range Interpretation [...] (test code = 1015) 278 K/UL HEMOGLOBIN [id number] 00:00:00 Test Item Value Reference Range Interpretation Comments HEMOGLOBIN A1c (test code = 95495) 5.4 % HEMOGLOBIN [id number] 00:00:00 Test Item Value Reference Range Interpretation Comments HEMOGLOBIN A1c (test code = 00395) 5.4 % HEMOGLOBIN [id number] 00:00:00 Test Item Value Reference Range Interpretation Comments HEMOGLOBIN A1c (test code = 93625) 5.4 % [id number] 00:00:00 Test Item Value Reference Range Interpretation Comments TSH (test code = 2821) 2.1 UIU/ML [id number] 00:00:00 Test Item Value Reference Range Interpretation Comments TSH (test code = 2821) 2.1 UIU/ML [id number] 00:00:00 Test Item Value Reference Range Interpretation Comments TSH (test code = 2821) 2.1 UIU/ML COMPREHENSIVE METABOLIC [id number] 00:00:00 Test Item Value Reference Range Interpretation Comments GLUCOSE (test code = 2217) 88 MG/DL BUN (test code = 2208) 9 MG/DL CREATININE (test code = 2214) 0.71 MG/DL eGFR AMER. (test code 131 ML/MIN/1.73 = 47977) eGFR NON- AMER. (test 113 ML/MIN/1.73 code = 69464) CALC BUN/CREAT (test code = 13 RATIO [...] code = 2219) 45 U/L COMPREHENSIVE METABOLIC [id number] 00:00:00 Test Item Value Reference Range Interpretation Comments GLUCOSE (test code = 2217) 88 MG/DL BUN (test code = 2208) 9 MG/DL CREATININE (test code = 2214) 0.71 MG/DL eGFR AMER. (test code 131 ML/MIN/1.73 = 28618) eGFR NON- AMER. (test 113 ML/MIN/1.73 code = 60985) CALC BUN/CREAT (test code = 13 RATIO [...] (test code = 2219) 45 U/L LIPID [id number] 00:00:00 Test Item Value Reference Range Interpretation Comments CHOLESTEROL (test code = 2210) 166 MG/DL TRIGLYCERIDES (test code = 2232) 85 MG/DL HDL CHOLESTEROL (test code = 2220) 61 MG/DL CALC LDL CHOL (test code = 2237) 88 MG/DL RISK RATIO LDL/HDL (test code = 1.44 RATIO 2238) LIPID [id number] 00:00:00 Test Item Value Reference Range Interpretation Comments CHOLESTEROL (test code = 2210) 166 MG/DL TRIGLYCERIDES (test code = 2232) 85 MG/DL HDL CHOLESTEROL (test code = 2220) 61 MG/DL CALC LDL CHOL (test code = 2237) 88 MG/DL RISK RATIO LDL/HDL (test code = 1.44 RATIO 2238) CBC W/AUTO [id number] 00:00:00 Test Item Value Reference Range Interpretation [...] code = 1015) 278 K/UL CBC W/AUTO [id number] 00:00:00 Test Item Value Reference Range Interpretation [...] code = 1015) 278 K/UL CBC W/AUTO [id number] 00:00:00 Test Item Value Reference Range Interpretation [...] (test code = 1015) 278 K/UL HEMOGLOBIN [id number] 00:00:00 Test Item Value Reference Range Interpretation Comments HEMOGLOBIN A1c (test code = 57294) 5.4 % HEMOGLOBIN [id number] 00:00:00 Test Item Value Reference Range Interpretation Comments HEMOGLOBIN A1c (test code = 90091) 5.4 % HEMOGLOBIN [id number] 00:00:00 Test Item Value Reference Range Interpretation Comments HEMOGLOBIN A1c (test code = 23014) 5.4 % [id number] 00:00:00 Test Item Value Reference Range Interpretation Comments TSH (test code = 2821) 2.1 UIU/ML [id number] 00:00:00 Test Item Value Reference Range Interpretation Comments TSH (test code = 2821) 2.1 UIU/ML [id number] 00:00:00 Test Item Value Reference Range Interpretation Comments TSH (test code = 2821) 2.1 UIU/ML COMPREHENSIVE METABOLIC [id number] 00:00:00 Test Item Value Reference Range Interpretation Comments GLUCOSE (test code = 2217) 88 MG/DL BUN (test code = 2208) 9 MG/DL CREATININE (test code = 2214) 0.71 MG/DL eGFR AMER. (test code 131 ML/MIN/1.73 = 11308) eGFR NON- AMER. (test 113 ML/MIN/1.73 code = 38337) CALC BUN/CREAT (test code = 13 RATIO [...] code = 2219) 45 U/L COMPREHENSIVE METABOLIC [id number] 00:00:00 Test Item Value Reference Range Interpretation Comments GLUCOSE (test code = 2217) 88 MG/DL BUN (test code = 2208) 9 MG/DL CREATININE (test code = 2214) 0.71 MG/DL eGFR AMER. (test code 131 ML/MIN/1.73 = 52966) eGFR NON- AMER. (test 113 ML/MIN/1.73 code = 54138) CALC BUN/CREAT (test code = 13 RATIO [...] (test code = 2219) 45 U/L LIPID [id number] 00:00:00 Test Item Value Reference Range Interpretation Comments CHOLESTEROL (test code = 2210) 166 MG/DL TRIGLYCERIDES (test code = 2232) 85 MG/DL HDL CHOLESTEROL (test code = 2220) 61 MG/DL CALC LDL CHOL (test code = 2237) 88 MG/DL RISK RATIO LDL/HDL (test code = 1.44 RATIO 2238) LIPID [id number] 00:00:00 Test Item Value Reference Range Interpretation Comments CHOLESTEROL (test code = 2210) 166 MG/DL TRIGLYCERIDES (test code = 2232) 85 MG/DL HDL CHOLESTEROL (test code = 2220) 61 MG/DL CALC LDL CHOL (test code = 2237) 88 MG/DL RISK RATIO LDL/HDL (test code = 1.44 RATIO 2238) CBC W/AUTO [id number] 00:00:00 Test Item Value Reference Range Interpretation [...] code = 1015) 278 K/UL CBC W/AUTO [id number] 00:00:00 Test Item Value Reference Range Interpretation [...] code = 1015) 278 K/UL CBC W/AUTO [id number] 00:00:00 Test Item Value Reference Range Interpretation [...] (test code = 1015) 278 K/UL HEMOGLOBIN [id number] 00:00:00 Test Item Value Reference Range Interpretation Comments HEMOGLOBIN A1c (test code = 20488) 5.4 % HEMOGLOBIN [id number] 00:00:00 Test Item Value Reference Range Interpretation Comments HEMOGLOBIN A1c (test code = 35148) 5.4 % HEMOGLOBIN [id number] 00:00:00 Test Item Value Reference Range Interpretation Comments HEMOGLOBIN A1c (test code = 42322) 5.4 % [id number] 00:00:00 Test Item Value Reference Range Interpretation Comments TSH (test code = 2821) 2.1 UIU/ML [id number] 00:00:00 Test Item Value Reference Range Interpretation Comments TSH (test code = 2821) 2.1 UIU/ML [id number] 00:00:00 Test Item Value Reference Range Interpretation Comments TSH (test code = 2821) 2.1 UIU/ML
[2022-08-15 00:02] LABS: Specific Gravity 1.017 (1.005-1.030); Urine Bilirubin NEGATIVE (Negative); Urine Blood Negative (Negative); Urine Clarity Clear (Clear); Urine Color Light-Yellow (Yellow); Urine Glucose NEGATIVE (Negative); Urine Protein NEGATIVE (Negative); Urine Urobilinogen Normal (Normal); Urine pH 6.5 (5.0-7.0)
[2022-08-15 00:13] LABS: Specific Gravity 1.017 (1.005-1.030)
[2022-08-15] MEDS ORDERED: NA CHLORIDE 0.9% 1,000 ML ONE (01:06)
[2022-08-15] MEDS ORDERED: KETOROLAC 30 MG/ML INJ ONE (01:06)
[2022-08-15 01:12] LABS: Absolute Lymphocytes (CBC) 2.2 K/uL (0.7-4.9); Hematocrit 38.2 % (36.0-45.0); Lymphocytes % 34.6 % (15.3-44.8); MPV 8.3 fL (7.6-11.3); RBC Red Blood Cell Count 4.15 M/uL (3.86-4.86)
[2022-08-15 01:30] LABS: Albumin 3.2 g/dL (3.4-5.0); Bilirubin Total 0.4 mg/dL (0.2-1.0); Potassium 3.6 mEq/L (3.5-5.1); Protein, Total 8.4 g/dL (6.4-8.2)
[2022-08-15] MEDS ORDERED: MORPHINE 4 MG/ML SYR ONE ×2 (02:05→05:06)
[2022-08-15] MEDS ORDERED: ONDANSETRON 4 MG/2 ML VIAL ONE (02:05)
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
[2022-08-15 05:11] VITALS: TEMP 99
[2022-08-15 05:16] VITALS: BP 96/71; O2SAT 95
--- NOTE | 2022-08-15 13:25 | RAD REPORT ---
EXAM DESCRIPTION: US - Extrem Venous W Compress Steven - 08/15/2022 12:53 am CLINICAL HISTORY: The patient is 36 years old and is Female; PAIN TECHNIQUE: Real-time duplex ultrasound scan of the bilateral lower extremity veins integrating B-mod e two-dimensional vascular structure, Doppler spectral analysis, color flow Doppler imaging and compr ession. COMPARISON: No relevant prior studies available. FINDINGS: Right deep veins: Unremarkable. No DVT in the visualized common femoral, femoral, or p opliteal veins. The veins demonstrate normal color flow, are normally compressible where visualized , with normal phasic flow and/or augmentation response. Left deep veins: Unremarkable. No DVT in the visualized common femoral, femoral, or popliteal v eins. The veins demonstrate normal color flow, are normally compressible where visualized, with nor mal phasic flow and/or augmentation response. Soft tissues: No acute findings. IMPRESSION: No evidence of DVT in the bilateral lower extremity veins. Electronically signed by: Amilcar Cooper MD 08/15/2022 1:11 AM CDT Due to temporary technical issues with the PACS/Fluency reporting system, reports are being signed by the in house radiologist without review as a courtesy to ensure prompt reporting. The interpreting r adiologist is fully responsible for the content of the report.
--- NOTE | 2022-08-15 13:27 | RAD REPORT ---
EXAM DESCRIPTION: CT - Abdomen Pelvis W Contrast - 08/15/2022 5:19 am CLINICAL HISTORY: The patient is 36 years old and is Female; ABD PAIN TECHNIQUE: Axial computed tomography images of the abdomen and pelvis with intravenous contrast. S agittal and coronal reformatted images were created and reviewed. This CT exam was performed using one or more of the following dose reduction techniques: automated exposure control, adjustment of t he mA and/or kV according to patient size, and/or use of iterative reconstruction technique. COMPARISON: No relevant prior studies available. FINDINGS: Lung bases: Unremarkable. No mass. No consolidation. ABDOMEN: Liver: Hepatomegaly. Gallbladder and bile ducts: Gallbladder is surgically absent. No ductal dilation. Pancreas: Hypodense appearance to the pancreatic head which is thought to be due to metallic stre ak artifact. No ductal dilation. Spleen: Unremarkable. No splenomegaly. Adrenals: Unremarkable. No mass. Kidneys and ureters: Unremarkable. No solid mass. No hydronephrosis. Stomach and bowel: Unremarkable. No obstruction. No mucosal thickening. PELVIS: Appendix: No findings to suggest acute appendicitis. Bladder: Unremarkable. Reproductive: Unremarkable as visualized. ABDOMEN and PELVIS: Intraperitoneal space: Unremarkable. No free air. No significant fluid collection. Bones/joints: No acute fracture. No dislocation. Soft tissues: Unremarkable. Vasculature: Unremarkable. No abdominal aortic aneurysm. Lymph nodes: Unremarkable. No enlarged lymph nodes. IMPRESSION: No acute finding in the abdomen/pelvis. Electronically signed by: Amilcar Cooper MD 08/15/2022 3:24 AM CDT Due to temporary technical issues with the PACS/Fluency reporting system, reports are being signed by the in house radiologist without review as a courtesy to ensure prompt reporting. The interpreting r adiologist is fully responsible for the content of the report.
== END 2022-08-15 05:06 | disposition home or self-care (01) ==
LOC: ER 22:17
DX: R10.84 Generalized abdominal pain (principal); R10.12 Left upper quadrant pain
CPT/HCPCS: 36415; 74177; 80053; 81003; 81025; 83690; 85025; 93970; 96361; 96374; 96375; 99284; J2405; J7030; Q9967

== ENCOUNTER 2023-01-18 13:35 | Inpatient (IN) | payer SELFPAY ==
--- OUTSIDE RECORDS SUMMARY | 2023-01-18 13:44 | XMS REPORT | Continuity of Care Document ---
:1985 Author Organization [facility] t Address [address] [place] [place] [address] Care Team Providers Name Role Phone Abhijit Mccallum [facility] Primary Care P hysician GC_GCBZW_Kadiyala_S Attending Clinician Unavailable ETE BLANDON Attending Clinician Unavailable Tee Cardoza Attending Clinician Doctor Unassigned, Dana Attending Clinician Unavailable Radha Patel DO Attending Clinician GC_GCBZW_Katrava_S Admitting Clinician Unavailable Payers Payer Name Policy Type Policy Number Effective Date Expiration Date S ource Problems Condition Condition Condition Status Onset Resolution Last Treating Co mments Source Name Details Category Date Date Treatment Clinician Date Overweight Overweight Disease Active 2012-03 Overview : Univers 2- Formattin ity of 00:00: g of this [place] 00 note Medical might be Branch different from the original. ICD10 Diagnosis Term [place] Master Utility Need for Need for Disease Active 2012-03 Unive rs Tdap Tdap 2- ity of [place] Branch Allergies, Adverse Reactions, Alerts Allergy Allergy Status Severity Reaction(s) Onset Inactive Treating Comm ents Source Name Type Date Date Clinician Nemo Beckett Active Intraven ty to 7-11 ous adverse 00:00: reaction 00 to drug NO KNOWN Drug Active Univers ALLERGIE Class ity of S [facility] Social History Social Habit Start Date Stop Date Quantity Comments Source History SDOH University o f Alcohol Frequency [place] M edical Branch History SDOH University o f Alcohol Std [place] Medical Drinks Branch History SDOH University o f Alcohol Binge [place] Medic al Branch Exposure to Not sure [facility] SARS-CoV-2 [facility] (event) [place] Alcohol intake 2021-06-08 2021-06-08 Current drinker Unive rsity of 00:00:00 00:00:00 of alcohol [facility] (finding) [place] Tobacco use and 2012-07-01 2012-07-01 Never used Universit y of exposure 00:00:00 00:00:00 [facility] Alcohol Comment 2012-07-01 2012-07-01 1 x per month Univer sity of 00:00:00 00:00:00 [facility] Sex Ass[birth year] At [birth year] Universit y of 00:00:00 00:00:00 [facility] Smoking Status Start Date Stop Date Source Never smoker [facility] Medications Ordered Filled Start Stop Current Ordering Indication Dosage Frequency Signature Comments Components Source Medication Medication Date Date Medication? Clinician (SIG) Name Name TAKE 5 ML 2022-0 No EVERY 4 TO 1-12 6 HOURS 00:00: NEEDED. 00 APPLY 2022-0 No SPARINGLY 1-12 TO AFFECTED 00:00: AREA(S) 00 TWICE DAILY TAKE 5 ML 3-0 No EVERY 4 TO 1-10 6 HOURS 00:00: NEEDED. 00 TAKE 1 2021-03 No TABLET 2-17 EVERY 4 00:00: HOURS 00 NEEDED. Dose 2021-03 No Unknown 2-17 00:00: 00 Dose 2021-03 No Unknown 2-17 00:00: 00 Dose 2021-03 No Unknown 2-17 00:00: 00 Dose 2021-03 No Unknown 2-17 00:00: 00 Dose 2021-03 No Unknown 2-17 00:00: 00 Dose 2021-03 No Unknown 2-17 00:00: 00 Dose 2021-03 No Unknown 2-17 00:00: 00 TAKE ONE 2022-1 No (1) 2-17 TABLET(S) 00:00: BY MOUTH 00 ONCE A DAY. Dose 2-1 No Unknown 2-17 00:00: 00 TAKE 1 2021-1 No TABLET 2-17 EVERY 4 00:00: HOURS 00 NEEDED. Dose 2-1 No Unknown 2-17 00:00: 00 Dose 2022-1 No Unknown 2-17 00:00: 00 Dose 2022-1 No Unknown 2-17 00:00: 00 Dose 2022-1 No Unknown 2-17 00:00: 00 Dose 2022-1 No Unknown 2-17 00:00: 00 Dose 2-1 No Unknown 2-17 00:00: 00 Dose 2-1 No Unknown 2-17 00:00: 00 TAKE ONE 2021-1 No (1) 2-17 TABLET(S) 00:00: BY MOUTH 00 ONCE A DAY. Dose 2-1 No Unknown 2-17 00:00: 00 TAKE 5 ML 2022-1 No [id number] EVERY 4 TO 0-10 6 HOURS 00:00: NEEDED. 00 TAKE 5 ML 2022-1 No EVERY 4 TO 0-10 6 HOURS 00:00: NEEDED. 00 TAKE 5 ML 2022-1 No EVERY 4 TO 0-10 6 HOURS 00:00: NEEDED. 00 TAKE 1 2021-0 No 800 TABLET BY 9-05 MOUTH EVERY [...] s pen injector Dose 2022-0 No Unknown 6-27 00:00: 00 Victoza 2-0 No 51(18 2-Tacho 0.6 6-27 mg/3 mg/0.1 mL 00:00: mL) (18 mg/3 00 mL) subcutaneou s pen injector Dose 2-0 No Unknown 09-09 00:00: 00 Victoza 2-0 No 51(18 2-Tacho 0.6 6-27 mg/3 mg/0.1 mL 00:00: mL) (18 mg/3 00 mL) subcutaneou s pen injector Dose 2-0 No Unknown 09-09 00:00: 00 Victoza 2-0 No 51(18 2-Tacho 0.6 6-27 mg/3 mg/0.1 mL 00:00: mL) (18 mg/3 00 mL) subcutaneou s pen injector Dose 2-0 No Unknown 09-09 00:00: 00 Victoza 2-0 No 51(18 2-Tacho 0.6 6-27 mg/3 mg/0.1 mL 00:00: mL) (18 mg/3 00 mL) subcutaneou s pen injector Dose 2021-0 No Unknown 09-09 00:00: 00 Victoza 2-0 No 51(18 2-Tacho 0.6 6-27 mg/3 mg/0.1 mL 00:00: mL) (18 mg/3 00 mL) subcutaneou s pen injector Dose 2-0 No Unknown 09-09 00:00: 00 Dose 2-0 No Unknown 09-09 00:00: 00 Dose 2-0 No Unknown 09-09 00:00: 00 Dose 2-0 No Unknown 09-09 00:00: 00 Dose 2-0 No Unknown 09-09 [...] 6- 00:00: 00 Dose 2022-0 No Unknown 08-26 00:00: 00 Dose 2022-0 No Unknown 08-26 00:00: 00 Dose 2022-0 No Unknown 08-26 00:00: 00 Dose 2022-0 No Unknown 6- 00:00: 00 gabapentin 2022-0 No 1mg 100 mg 3-31 capsule 00:00: 00 Dose 2022-0 No Unknown 3 00:00: 00 gabapentin 2022-0 No 1mg 100 mg 3-31 capsule 00:00: 00 Dose 2-0 No Unknown 3-31 00:00: 00 gabapentin 2-0 No 1mg 100 mg 3-31 capsule 00:00: 00 Dose 2-0 No Unknown 3-31 00:00: 00 gabapentin 2022-0 No 1mg 100 mg 3-31 capsule 00:00: 00 Dose 2-0 No Unknown 3-31 00:00: 00 gabapentin 2022-0 No 1mg 100 mg 3-31 capsule 00:00: 00 Dose 2021-0 No Unknown 3-31 00:00: 00 gabapentin 2-0 No 1mg 100 mg 3-31 capsule 00:00: 00 Dose 2021-0 No Unknown 3-31 00:00: 00 Dose 2021-0 No Unknown 331 00:00: 00 Dose 2021-0 No Unknown 331 00:00: 00 Dose 2021-0 No Unknown 331 00:00: 00 Dose 2021-0 No Unknown 3-31 00:00: 00 HYDROcodone 2021-2021- No 1{tbl} 1 tablet, Univers -acetaminop 06-08 [...] Sat Branch 06/08/21 at 1700, DAVID ibuprofen 2021-0 Yes [id number] 800mg Take 1 Univers 800 mg - tablet by ity of tablet 00:00: mouth [place] 00 every 8 Medical (eight) Branch hours as needed for Pain (scale 4-6). methocarbam Yes [id number] 750mg Take 1 Univers oL 750 mg [...] days. Indication s: acute pain naproxen Yes [id number] 500mg Take 1 Un sasha 500 mg 7-26 tablet by ity of tablet 00:00: mouth 2 00 (two) Medical times Branch daily with meals. naproxen Yes [id number] 500mg Take 1 Un sasha 500 mg 7-26 tablet by ity of tablet 00:00: mouth 2 00 (two) Medical times Branch daily with meals. naproxen Yes [id number] 500mg Take 1 Un sasha 500 mg 7-26 tablet by ity of tablet 00:00: mouth 2 00 (two) Medical times Branch daily with meals. amoxicillin 2020- No [id number] 875mg Take 1 Univers 875 mg 7-26 08-06 tablet by ity of tablet 00:00: 04:59 mouth 2 [place] 00 :00 (two) Medical times Branch daily for 10 days. triamcinolo No 1% ne -12 acetonide 00:00: 0.5 % 00 topical ointment Prozac 10 No 1mg mg capsule -12 00:00: 00 Bromfed DM No 10mg/5 2 mg-30 1-12 mL mg-10 mg/5 00:00: mL syrup 00 triamcinolo No 1% ne -12 acetonide 00:00: 0.5 % 00 topical ointment Prozac 10 No 1mg mg capsule -12 00:00: 00 Bromfed DM No 10mg/5 2 mg-30 1-12 mL mg-10 [...] mg/5 00:00: mL syrup 00 Prozac 10 2017-0 No 1mg mg capsule [...] 1mg mg capsule 8-31 00:00: 00 phentermine 2012-1 Yes 37.5mg Take 37.5 Univers (ADIPEX-P) 2-04 [...] with Medical breakfast. Branch levonorgest 2012-03 Yes [id number] 1{devic 1 Device Univers rel 2-03 e} by ity of (MIRENA) 20 23:49: Intrauteri [place] mcg/24 hour 43 ne route Medi elkin (5 years) once now. Branc h IUD levonorgest 2012-03 Yes [id number] 1{devic 1 Device Univers rel 2-03 e} by ity of (MIRENA) 20 23:49: Intrauteri [place] mcg/24 hour 43 ne route Medi elkin (5 years) once now. Branc h IUD levonorgest 2012-03 Yes [id number] 1{devic 1 Device Univers rel 2-03 e} by ity of (MIRENA) 20 17:49: Intrauteri [place] mcg/24 hour 43 ne route Medi elkin (5 years) once now. Branc h IUD levonorgest 2012-03 Yes [id number] 1{devic 1 Device Univers rel 2-03 e} by ity of (MIRENA) 20 17:49: Intrauteri [place] mcg/24 hour 43 ne route Medi elkin (5 years) once now. Branc h IUD Vital Signs Vital Name Observation Time Observation Value Comments Source Systolic blood 2021-06-08 21:37:54 107 mm[Hg] Univer sity [facility] Diastolic blood 2021-06-08 21:37:54 74 mm[Hg] Unive [facility] Heart rate 2021-06-08 21:37:54 79 /min Universi ty of [facility] Body temperature 2021-06-08 21:37:54 37.06 [place] [facility] ersity of [place] Medical Branch Respiratory rate 2021-06-08 21:37:54 18 /min Univ ersity of [place] [facility] Oxygen saturation in 2021-06-08 21:37:54 98 /min University of Arterial blood by [facility] Pulse oximetry Branch Body weight 2021-06-08 20:33:00 90.719 kg Universi ty of [place] [facility] BMI 2021-06-08 20:33:00 34.33 kg/m2 Universi ty of [place] [facility] Systolic blood 2020-10-08 21:31:00 116 mm[Hg] Univer sity of pressure [place] [facility] Diastolic blood 2020-10-08 21:31:00 69 mm[Hg] Unive rsity of pressure [place] [facility] Heart rate 2020-10-08 21:31:00 59 /min Universi ty of [place] [facility] Body temperature 2020-10-08 21:31:00 37.28 [place] [facility] ersity of [place] [facility] Respiratory rate 2020-10-08 21:31:00 16 /min [facility] ersity of [place] [facility] Body height 2020-10-08 21:31:00 162.6 cm Universi ty of [place] [facility] Body weight 2020-10-08 21:31:00 90.719 kg Universi ty of [place] [facility] BMI 2020-10-08 21:31:00 34.33 kg/m2 Universi ty of [place] [facility] Oxygen saturation in 2020-10-08 21:31:00 94 /min University of Arterial blood by [facility] Pulse oximetry Branch BP Systolic [...] Performed Performing Clinician [facility] e CONSENT/REFUSAL FOR 2021-06-08 20:26:40 Doctor Unassigned, No [facility] Name [facility] Branch TREATMENT POCT TEST 2020-10-08 21:38:00 Radha Patel [facility] CONSENT/REFUSAL FOR 2020-10-08 21:18:59 Doctor Unassigned, No Un iversity of [place] DIAGNOSIS AND Name Medical Branch TREATMENT NOTICE OF PRIVACY 2020-10-08 21:18:38 Doctor Unassigned, No Univ ersity of [place] PRACTICES Name Medical Branch Plan of Care Planned Activity Planned Date Details Comments Source Goal Plan of Care Note [code = 07754-8] Goal Plan of Care Note [code = 69330-7] Goal Plan of Care Note [code = 08318-2] Goal Plan of Care Note [code = 48079-6] Goal Plan of Care Note [code = 30917-6] Goal Plan of Care Note [code = 51283-5] Goal Plan of Care Note [code = 82812-5] Goal Plan of Care Note [code = 84155-3] Goal Plan of Care Note [code = 50563-8] Goal Plan of Care Note [code = 68920-9] Goal Plan of Care Note [code = 40326-5] Goal Plan of Care Note [code = 90963-3] Goal Plan of Care Note [code = 66267-8] Goal Plan of Care Note [code = 93253-3] Goal Plan of Care Note [code = 12023-7] Goal Plan of Care Note [code = 17726-3] Goal Plan of Care Note [code = 44682-8] Goal Plan of Care Note [code = 96651-5] Goal Plan of Care Note [code = 00701-8] Goal Plan of Care Note [code = 42184-4] Goal Plan of Care Note [code = 93489-9] Goal Plan of Care Note [code = 69499-7] Goal Plan of Care Note [code = 60411-2] Goal Plan of Care Note [code = 16781-7] Goal Plan of Care Note [code = 82789-6] Goal Plan of Care Note [code = 90930-7] Goal Plan of Care Note [code = 50640-4] Goal Plan of Care Note [code = 06187-3] Goal Plan of Care Note [code = 00645-1] Goal Plan of Care Note [code = 78842-8] Goal Plan of Care Note [code = 23058-7] Goal Plan of Care Note [code = 12484-7] Goal Plan of Care Note [code = 27693-6] Goal Plan of Care Note [code = 99354-9] Goal Plan of Care Note [code = 64674-7] Goal Plan of Care Note [code = 71324-2] Goal Plan of Care Note [code = 78914-0] Goal Plan of Care Note [code = 07940-3] Goal Plan of Care Note [code = 09438-8] Goal Plan of Care Note [code = 15393-2] Goal Plan of Care Note [code = 36288-0] Goal Plan of Care Note [code = 96335-2] Goal Plan of Care Note [code = 60318-9] Goal Plan of Care Note [code = 94506-8] Goal Plan of Care Note [code = 67806-6] Goal Plan of Care Note [code = 78177-9] Goal Plan of Care Note [code = 64149-0] Goal Plan of Care Note [code = 52383-1] Goal Plan of Care Note [code = 40262-3] Goal Plan of Care Note [code = 09178-2] Goal Plan of Care Note [code = 77746-6] Goal Plan of Care Note [code = 96894-4] Goal Plan of Care Note [code = 05340-1] Goal Plan of Care Note [code = 10587-8] Goal Plan of Care Note [code = 58926-1] Goal Plan of Care Note [code = 20058-0] Goal Plan of Care Note [code = 73463-7] Goal Plan of Care Note [code = 12823-4] Goal Plan of Care Note [code = 58102-5] Goal Plan of Care Note [code = 95730-6] Goal Plan of Care Note [code = 18333-1] Goal Plan of Care Note [code = 58150-2] Goal Plan of Care Note [code = 14660-1] Goal Plan of Care Note [code = 33240-3] Goal Plan of Care Note [code = 48158-8] Goal Plan of Care Note [code = 97283-8] Goal Plan of Care Note [code = 81932-8] Goal Plan of Care Note [code = 67575-6] Goal Plan of Care Note [code = 89409-6] Goal Plan of Care Note [code = 92980-7] Goal Plan of Care Note [code = 58270-5] Goal Plan of Care Note [code = 94422-8] Goal Plan of Care Note [code = 15951-6] Goal Plan of Care Note [code = 70382-2] Goal Plan of Care Note [code = 52557-9] Goal Plan of Care Note [code = 46788-2] Goal Plan of Care Note [code = 57655-1] Goal Plan of Care Note [code = 25444-7] Goal Plan of Care Note [code = 29072-5] Goal Plan of Care Note [code = 83005-2] Goal Plan of Care Note [code = 93842-1] Goal Plan of Care Note [code = 70194-8] Goal Plan of Care Note [code = 74958-2] Goal Plan of Care Note [code = 23823-3] Goal Plan of Care Note [code = 74261-2] Goal Plan of Care Note [code = 99736-6] Goal Plan of Care Note [code = 74056-7] Goal Plan of Care Note [code = 36006-6] Goal Plan of Care Note [code = 73144-5] Goal Plan of Care Note [code = 39166-1] Goal Plan of Care Note [code = 91619-5] Goal Plan of Care Note [code = 89712-8] Goal Plan of Care Note [code = 66567-0] Goal Plan of Care Note [code = 11543-8] Goal Plan of Care Note [code = 58445-6] Goal Plan of Care Note [code = 79273-2] Goal Plan of Care Note [code = 33426-6] Goal Plan of Care Note [code = 29048-7] Goal Plan of Care Note [code = 66548-6] Goal Plan of Care Note [code = 82924-3] Goal Plan of Care Note [code = 80442-6] Goal Plan of Care Note [code = 18831-5] Goal Plan of Care Note [code = 09748-5] Goal Plan of Care Note [code = 24168-3] Goal Plan of Care Note [code = 51200-4] Goal Plan of Care Note [code = 21590-9] Goal Plan of Care Note [code = 31063-6] Goal Plan of Care Note [code = 79864-1] Goal Plan of Care Note [code = 12647-1] Goal Plan of Care Note [code = 07217-3] Goal Plan of Care Note [code = 73293-3] Goal Plan of Care Note [code = 03995-2] Goal Plan of Care Note [code = 51660-0] Goal Plan of Care Note [code = 59975-1] Goal Plan of Care Note [code = 97489-5] Goal Plan of Care Note [code = 42091-8] Goal Plan of Care Note [code = 81153-1] Goal Plan of Care Note [code = 94616-6] Goal Plan of Care Note [code = 28947-3] Goal Plan of Care Note [code = 90159-7] Goal Plan of Care Note [code = 74951-2] Goal Plan of Care Note [code = 86265-6] Goal Plan of Care Note [code = 46428-4] Goal Plan of Care Note [code = 53225-0] Goal Plan of Care Note [code = 46441-7] Goal Plan of Care Note [code = 17593-0] Goal Plan of Care Note [code = 39564-8] Goal Plan of Care Note [code = 12064-5] Goal Plan of Care Note [code = 02354-8] Goal Plan of Care Note [code = 62241-6] Goal Plan of Care Note [code = 63487-9] Goal Plan of Care Note [code = 60049-7] Goal Plan of Care Note [code = 92042-0] Goal Plan of Care Note [code = 40293-4] Goal Plan of Care Note [code = 30170-0] Goal Plan of Care Note [code = 34071-5] Goal Plan of Care Note [code = 95357-1] Goal Plan of Care Note [code = 21467-8] Goal Plan of Care Note [code = 58527-5] Goal Plan of Care Note [code = 69294-8] Goal Plan of Care Note [code = 85444-8] Goal Plan of Care Note [code = 83930-8] Goal Plan of Care Note [code = 50120-3] Goal Plan of Care Note [code = 39627-8] Goal Plan of Care Note [code = 79882-2] Goal Plan of Care Note [code = 32821-5] Goal Plan of Care Note [code = 16820-1] Goal Plan of Care Note [code = 69249-9] Goal Plan of Care Note [code = 59998-2] Goal Plan of Care Note [code = 13025-4] Goal Plan of Care Note [code = 24414-4] Goal Plan of Care Note [code = 11296-0] Goal Plan of Care Note [code = 55467-1] Goal Plan of Care Note [code = 50334-1] Goal Plan of Care Note [code = 76054-7] Goal Plan of Care Note [code = 38195-2] Goal Plan of Care Note [code = 63546-3] Goal Plan of Care Note [code = 41731-9] Goal Plan of Care Note [code = 15116-7] Goal Plan of Care Note [code = 26823-4] Goal Plan of Care Note [code = 86572-2] Goal Plan of Care Note [code = 96567-0] Goal Plan of Care Note [code = 50759-1] Goal Plan of Care Note [code = 23836-6] Goal Plan of Care Note [code = 43031-6] Goal Plan of Care Note [code = 82904-5] Goal Plan of Care Note [code = 56663-0] Goal Plan of Care Note [code = 99024-2] Goal Plan of Care Note [code = 30816-9] Goal Plan of Care Note [code = 39331-3] Goal Plan of Care Note [code = 24333-2] Goal Plan of Care Note [code = 40285-9] Goal Plan of Care Note [code = 25735-3] Goal Plan of Care Note [code = 41537-6] Goal Plan of Care Note [code = 57943-7] Goal Plan of Care Note [code = 54963-2] Goal Plan of Care Note [code = 90732-1] Goal Plan of Care Note [code = 47358-5] Goal Plan of Care Note [code = 27944-6] Goal Plan of Care Note [code = 14611-4] Goal Plan of Care Note [code = 79649-6] Goal Plan of Care Note [code = 48387-6] Goal Plan of Care Note [code = 41491-5] Goal Plan of Care Note [code = 84016-2] Goal Plan of Care Note [code = 88085-6] Goal Plan of Care Note [code = 77542-1] Encounters Start End Encounter Admission Attending Care Care Encounter Source Date/Time Date/Time Type Type Clinicians Facility Department ID 2023-01-12 2023-01-12 Outpatient GC_GCBZW_Ka PRIV PRIV [id number] [facility] 00:00:00 00:00:00 diyala_S [id number] Medic al 2023-01-11 2023-01-11 Outpatient GC_GCBZW_Ka PRIV PRIV [id number] [facility] 00:00:00 00:00:00 diyala_S [id number] Medic al 2022-05-05 2022-05-05 Outpatient SFA SFA [id number] 023 Abhijit 13:09:40 13:09:40 0220 F Kunal 2022-04-30 2022-04-30 Outpatient SFA SFA [id number] 023 Abhijit 17:01:31 17:01:31 0215 F Kunal 2022-03-28 2022-03-28 Outpatient SFA SFA [id number] 023 Abhijit 11:08:44 11:08:44 0113 F Kunal 2022-03-26 2022-03-26 Outpatient SFA SFA [id number] 023 Abhijit 17:18:46 17:18:46 0111 F Kunal 2022-03-26 2022-03-26 Outpatient [id number] [id number] 00:00:00 00:00:00 Visit 1j11-3222 y26-2765-k -k060-u9o 971-b3x390 6456x9942 5b5240 2022-03-25 2022-03-25 Outpatient SFA SFA [id number] 023 Abhijit 09:47:58 09:47:58 0110 [facility] 2022-03-25 2022-03-25 Outpatient [id number]- [id number] u112g7-3 00:00:00 00:00:00 Visit 4356-4df7 356-4df7-a -rv30-99k j05-55o11d 95p1k800b 8d516x 2022-02-11 2022-02-11 Outpatient SFA SFA [id number] 022 Abhijit 10:38:03 10:38:03 1129 Alessio Syed 2022-02-11 2022-02-11 Outpatient exi5ym3o- [id number] ea j4cd1s-s 00:00:00 00:00:00 Visit si7z-4732 p8z-7087-l -q627-1p0 246-5d2bc4 nc4698q11 195a12 2022-01-30 2022-01-30 Outpatient SFA SFA [id number] 022 Abhijit 08:12:07 08:12:07 1117 F Kunal 2022-01-30 2022-01-30 Outpatient 2m85b1yf- [id number] 7b 23f8sa-2 00:00:00 00:00:00 Visit 7aac-4b37 aac-4b37-b -fd2v-92p f0k-54g586 719t7w5vs f5b5da 2021-12-23 2021-12-23 Outpatient SFA SFA [id number] 022 Abhijit 10:06:30 10:06:30 1010 F Kunal 2021-12-23 2021-12-23 Outpatient 1qx0k05p- [id number] w6o87l-3 00:00:00 00:00:00 Visit 4644-4df8 644-4df8-8 -832f-715 32f-715e84 g80ztj18f aab02d 2021-11-19 2021-11-19 Outpatient yqg966ms- [id number] ad t185ha-m 00:00:00 00:00:00 Visit tw46-2k6k t68-4t6n-y -b041-37z 765-20z086 1445m141a 3v207r 2021-09-25 2021-09-25 Outpatient 1i16910x- [id number] 1e 13835d-l 00:00:00 00:00:00 Visit k5k2-4t51 1s7-9e01-t -f396-k7j 976-d3ac12 y81mk3gm3 de8aa1 2021-09-23 2021-09-23 Outpatient 2077t36w- [id number] 35w07n-8 00:00:00 00:00:00 Visit 3572-4f85 572-4f85-9 -5u7w-27o a3t-34v9e3 9g71e119g 7e341a 2021-06-08 2021-06-08 Emergency X LEL[place], [facility] [id number] Univers 15:37:00 16:46:00 TEE itjesse of [facility] 2021-06-08 2021-06-08 Emergency [place], [facility] 1.2.840.114 [id number] Univers 15:37:00 16:46:00 Tee WALLIS 350.1.13.10 i ty of [place] 4.2.7.2.686 [facility] [id number] [address] 2021-06-08 2021-06-08 Orders Doctor TONI 1.2.840.114 [id number] Univers 00:00:00 00:00:00 Only Unassigned, SUSANA 350.1.13.10 ity of [facility] 4.2.7.2.686 Yeyo as [id number] [address] 2020-10-08 2020-10-08 Emergency Jorge, [facility] 1.2.840.114 [id number] Univers 16:35:00 17:12:00 Radha Faustin Dave 350.1.13.10 ity [facility] 4.2.7.2.686 [facility] [id number] [address] 2020-10-08 2020-10-08 Emergency X [place] ERT [id number] Univers 16:19:00 16:19:00 ity [facility] 2020-10-08 2020-10-08 Orders Doctor TONI 1.2.840.114 [id number] Univers 00:00:00 00:00:00 Only Unassigned, SUSANA 350.1.13.10 ity of [facility] 4.2.7.2.686 Yeyo as [id number] [address] 2016-04-14 2016-04-14 Outpatient MHIE MHIE [id number] Memoria 14:30:00 14:30:00 00 junior Mora 2016-04-14 2016-04-14 Outpatient MHIE MHIE [id number] Mem[facility] 14:30:00 14:30:00 00 junior Mora Results Test Description Test Time Test Comments Results Result Comments Source HCG, QUANTITATIVE 2022-03-27 09:50:34 Test Item Value Reference Range Interpretation Comme nts HCG, QUANTITATIVE (test code <5 MIU/ML SEE BELOW EXPECTED VALUES FOR HCG = 2506) GST.AGE UNITS RANGE GST. AGE UNITS RANGE 3 WEEKS MIU/ML 6-71 10 WEEKS MIU/ML 46,509-186,9774 WEEKS MIU/ML 10 -750 12 WEEKS MIU/ML 27,832-2 10,6125 WEEKS MIU/ML 217-7,13 8 14 WEEKS MIU/ML 13,950-62,5306 WEEKS MIU/ML 158-31,795 15 W EEKS MIU/ML 12,039-70,9717 WEEKS MIU/ML 3,697-163,563 1 6 WEEKS MIU/ML 9,040-56,4518 W EEKS MIU/ML 32,065-149,571 17 WEEKS MIU/ML 8,175-55,8689 W EEKS MIU/ML 63,803-151,410 18 WEEKS MIU/ML 8,099-58,176MAL ES and NON- FEMALES . . . . . . . . MIU/ML 2-5QQHM-XIUZHFR GEMA FEMALES . . . . . . . . . . . . MIU/ML <=7 UNLESS OTHERWISE INDIC ATED, ALL TESTING PERFORMED [facility] PATH[facility]Y [facility], [facility]. [address] [place] [address] 4 EDUCATION INSTRUCTOR: LUIZ STUBBS M.D. CLIA NUMBER [id number] CAP ACCREDITATION N O. [id number] VAGINAL PATHOGENS DNA [id number] 15:47:35 Test Item Value Reference Range Interpretation [...] OTHERWISE INDIC ATED, ALL TESTING [facility]FORM [facility], [facility]. [address] [place] [id number] LABORATOR Y DIRECTOR: LUIZ PRICE M.D. CLIA NUMBER [id number] CAP ACCREDITATION N O. [id number] VAGINAL PATHOGENS DNA [id number] 00:00:00 Test Item Value Reference Range Interpretation Comments JENNY SPECIES (test code = ) NEGATIVE G. VAGINALIS (test code = ) POSITIVE T. VAGINALIS (test code = ) NEGATIVE VAGINAL PATHOGENS DNA [id number] 00:00:00 Test Item Value Reference Range Interpretation Comments JENNY SPECIES (test code = ) NEGATIVE G. VAGINALIS (test code = ) POSITIVE T. VAGINALIS (test code = ) NEGATIVE CBC W/AUTO [id number] 00:00:00 Test Item Value Reference Range Interpretation [...] NUCLEATED RBCS (test code = 0.00 K/UL 48316) CBC W/AUTO [id number] 00:00:00 Test Item Value Reference Range Interpretation [...] NUCLEATED RBCS (test code = 0.00 K/UL 13114) CBC W/AUTO [id number] 00:00:00 Test Item Value Reference Range Interpretation [...] NUCLEATED RBCS (test code = 0.00 K/UL 92762) LIVER (HEPATIC) FUNCTION [id number] 00:00:00 Test Item Value Reference Range Interpretation [...] = 2219) 26 U/L LIVER (HEPATIC) FUNCTION [id number] 00:00:00 Test Item Value Reference Range Interpretation Comments PROTEIN, TOTAL (test code = 2229) 7.9 G/DL ALBUMIN (test code = 2201) 4.3 G/DL BILIRUBIN, TOTAL (test code = 2207) 0.4 MG/DL BILIRUBIN, DIRECT (test code = 0.1 MG/DL 2021) ALKALINE PHOSPHATASE (test code = 73 U/L 2203) AST (test code = 2218) 23 U/L ALT (test code = 2219) 26 U/L BASIC METABOLIC [id number] 00:00:00 Test Item Value Reference Range Interpretation Comments GLUCOSE (test code = 2217) 103 MG/DL BUN (test code = 2208) 14 MG/DL CREATININE (test code = 2214) 0.68 MG/DL eGFR (2020 CKD-EPI) (test 114 ML/MIN/1.73 code = 88993) SODIUM (test code = 2231) 144 MEQ/L POTASSIUM (test code = 2228) 4.5 MEQ/L CHLORIDE (test code = 2215) 107 MEQ/L CARBON DIOXIDE (test code = 27 MEQ/L 220) CALCIUM (test code = 2209) 10.0 MG/DL BASIC METABOLIC [id number] 00:00:00 Test Item Value Reference Range Interpretation Comments GLUCOSE (test code = 2217) 103 MG/DL BUN (test code = 2208) 14 MG/DL CREATININE (test code = 2214) 0.68 MG/DL eGFR (2020 CKD-EPI) (test 114 ML/MIN/1.73 code = 92545) SODIUM (test code = 2231) 144 MEQ/L POTASSIUM (test code = 2228) 4.5 MEQ/L CHLORIDE (test code = 2215) 107 MEQ/L CARBON DIOXIDE (test code = 27 MEQ/L 2205) CALCIUM (test code = 2209) 10.0 MG/DL CBC W/AUTO [id number] 00:00:00 Test Item Value Reference Range Interpretation [...] NUCLEATED RBCS (test code = 0.00 K/UL 76663) CBC W/AUTO [id number] 00:00:00 Test Item Value Reference Range Interpretation [...] NUCLEATED RBCS (test code = 0.00 K/UL 80970) CBC W/AUTO [id number] 00:00:00 Test Item Value Reference Range Interpretation [...] NUCLEATED RBCS (test code = 0.00 K/UL 31774) LIVER (HEPATIC) FUNCTION [id number] 00:00:00 Test Item Value Reference Range Interpretation [...] = 2219) 26 U/L LIVER (HEPATIC) FUNCTION [id number] 00:00:00 Test Item Value Reference Range Interpretation Comments PROTEIN, TOTAL (test code = 2229) 7.9 G/DL ALBUMIN (test code = 2201) 4.3 G/DL BILIRUBIN, TOTAL (test code = 2207) 0.4 MG/DL BILIRUBIN, DIRECT (test code = 0.1 MG/DL 2021) ALKALINE PHOSPHATASE (test code = 73 U/L 2203) AST (test code = 2218) 23 U/L ALT (test code = 2219) 26 U/L BASIC METABOLIC [id number] 00:00:00 Test Item Value Reference Range Interpretation Comments GLUCOSE (test code = 2217) 103 MG/DL BUN (test code = 2208) 14 MG/DL CREATININE (test code = 2214) 0.68 MG/DL eGFR (2020 CKD-EPI) (test 114 ML/MIN/1.73 code = 41847) SODIUM (test code = 2231) 144 MEQ/L POTASSIUM (test code = 2228) 4.5 MEQ/L CHLORIDE (test code = 2215) 107 MEQ/L CARBON DIOXIDE (test code = 27 MEQ/L 2206) CALCIUM (test code = 2209) 10.0 MG/DL BASIC METABOLIC [id number] 00:00:00 Test Item Value Reference Range Interpretation Comments GLUCOSE (test code = 2217) 103 MG/DL BUN (test code = 2208) 14 MG/DL CREATININE (test code = 2214) 0.68 MG/DL eGFR (2020 CKD-EPI) (test 114 ML/MIN/1.73 code = 83362) SODIUM (test code = 2231) 144 MEQ/L POTASSIUM (test code = 2228) 4.5 MEQ/L CHLORIDE (test code = 2215) 107 MEQ/L CARBON DIOXIDE (test code = 27 MEQ/L 2206) CALCIUM (test code = 2209) 10.0 MG/DL CBC W/AUTO [id number] 00:00:00 Test Item Value Reference Range Interpretation [...] NUCLEATED RBCS (test code = 0.00 K/UL 36750) CBC W/AUTO [id number] 00:00:00 Test Item Value Reference Range Interpretation [...] NUCLEATED RBCS (test code = 0.00 K/UL 74413) CBC W/AUTO [id number] 00:00:00 Test Item Value Reference Range Interpretation [...] NUCLEATED RBCS (test code = 0.00 K/UL 46113) LIVER (HEPATIC) FUNCTION [id number] 00:00:00 Test Item Value Reference Range Interpretation [...] = 2219) 26 U/L LIVER (HEPATIC) FUNCTION [id number] 00:00:00 Test Item Value Reference Range Interpretation Comments PROTEIN, TOTAL (test code = 2229) 7.9 G/DL ALBUMIN (test code = 2201) 4.3 G/DL BILIRUBIN, TOTAL (test code = 2207) 0.4 MG/DL BILIRUBIN, DIRECT (test code = 0.1 MG/DL 2021) ALKALINE PHOSPHATASE (test code = 73 U/L 4) AST (test code = 2218) 23 U/L ALT (test code = 2219) 26 U/L BASIC METABOLIC [id number] 00:00:00 Test Item Value Reference Range Interpretation Comments GLUCOSE (test code = 2217) 103 MG/DL BUN (test code = 2208) 14 MG/DL CREATININE (test code = 2214) 0.68 MG/DL eGFR (2020 CKD-EPI) (test 114 ML/MIN/1.73 code = 78875) SODIUM (test code = 2231) 144 MEQ/L POTASSIUM (test code = 2228) 4.5 MEQ/L CHLORIDE (test code = 2215) 107 MEQ/L CARBON DIOXIDE (test code = 27 MEQ/L 2206) CALCIUM (test code = 2209) 10.0 MG/DL BASIC METABOLIC [id number] 00:00:00 Test Item Value Reference Range Interpretation Comments GLUCOSE (test code = 2217) 103 MG/DL BUN (test code = 2208) 14 MG/DL CREATININE (test code = 2214) 0.68 MG/DL eGFR (2020 CKD-EPI) (test 114 ML/MIN/1.73 code = 48406) SODIUM (test code = 2231) 144 MEQ/L POTASSIUM (test code = 2228) 4.5 MEQ/L CHLORIDE (test code = 2215) 107 MEQ/L CARBON DIOXIDE (test code = 27 MEQ/L 2206) CALCIUM (test code = 2209) 10.0 MG/DL H. PYLORI (BREATH)2021-09-05 13:02:07 Test Item Value Reference Range Interpretation Comments H. PYLORI (BREATH) NEGATIVE NEGATIVE UNLESS O THERWISE (test code = 06703) INDICATE D, ALL TESTING PERFORMED [facility] PATH[facility], [facility]. [address] [place] [id number] [place] [address] DIRECTOR: LUIZ STUBBS M.D. CLIA NUMBER [id number] CAP ACCREDITATION N O. [id number] HEMOGLOBIN [id number] 04:43:10 Test Item Value Reference Range Interpretation Comments HEMOGLOBIN A1c (test code = 25182) 5.5 % 4.2-5.6 LIPID [id number] 03:04:55 Test Item Value Reference Range Interpretation [...] MOREINFORMATION , SEE CLIENT ANNOUNCE MENT AT [email or web address] RISK RATIO LDL/HDL 1.62 RATIO <3.22 UNLESS O THERWISE (test code = 2238) INDICATED , ALL TESTING PERFORMED [facility], [facility]. [address], [place] [id number] [place] [address] [place] DIRECTOR: LUIZ STUBBS M.D. CLIA NUMBER [id number] CAP ACCREDITATION N O. [id number] HEMOGLOBIN [id number] 00:00:00 Test Item Value Reference Range Interpretation Comments HEMOGLOBIN A1c (test code = 01469) 5.5 % HEMOGLOBIN [id number] 00:00:00 Test Item Value Reference Range Interpretation Comments HEMOGLOBIN A1c (test code = 26584) 5.5 % H. PYLORI (BREATH)2021-09-05 00:00:00 Test Item Value Reference Range Interpretation Comments H. PYLORI (BREATH) (test code = NEGATIVE 64003) LIPID [id number] 00:00:00 Test Item Value Reference Range Interpretation Comments CHOLESTEROL (test code = 2210) 138 MG/DL TRIGLYCERIDES (test code = 2232) 114 MG/DL HDL CHOLESTEROL (test code = 2220) 45 MG/DL CALC LDL CHOL (test code = 2237) 73 MG/DL RISK RATIO LDL/HDL (test code = 1.62 RATIO 2238) HEMOGLOBIN [id number] 00:00:00 Test Item Value Reference Range Interpretation Comments HEMOGLOBIN A1c (test code = 60005) 5.5 % H. PYLORI (BREATH)2021-09-05 00:00:00 Test Item Value Reference Range Interpretation Comments H. PYLORI (BREATH) (test code = NEGATIVE 12782) HEMOGLOBIN [id number] 00:00:00 Test Item Value Reference Range Interpretation Comments HEMOGLOBIN A1c (test code = 45510) 5.5 % H. PYLORI (BREATH)2021-09-05 00:00:00 Test Item Value Reference Range Interpretation Comments H. PYLORI (BREATH) (test code = NEGATIVE 84772) HEMOGLOBIN [id number] 00:00:00 Test Item Value Reference Range Interpretation Comments HEMOGLOBIN A1c (test code = 71855) 5.5 % HEMOGLOBIN [id number] 00:00:00 Test Item Value Reference Range Interpretation Comments HEMOGLOBIN A1c (test code = 59894) 5.5 % H. PYLORI (BREATH)2021-09-05 00:00:00 Test Item Value Reference Range Interpretation Comments H. PYLORI (BREATH) (test code = NEGATIVE 88678) LIPID [id number] 00:00:00 Test Item Value Reference Range Interpretation Comments CHOLESTEROL (test code = 2210) 138 MG/DL TRIGLYCERIDES (test code = 2232) 114 MG/DL HDL CHOLESTEROL (test code = 2220) 45 MG/DL CALC LDL CHOL (test code = 2237) 73 MG/DL RISK RATIO LDL/HDL (test code = 1.62 RATIO 2238) LIPID [id number] 00:00:00 Test Item Value Reference Range Interpretation Comments CHOLESTEROL (test code = 2210) 138 MG/DL TRIGLYCERIDES (test code = 2232) 114 MG/DL HDL CHOLESTEROL (test code = 2220) 45 MG/DL CALC LDL CHOL (test code = 2237) 73 MG/DL RISK RATIO LDL/HDL (test code = 1.62 RATIO 2238) HEMOGLOBIN [id number] 00:00:00 Test Item Value Reference Range Interpretation Comments HEMOGLOBIN A1c (test code = 22431) 5.5 % LIPID [id number] 00:00:00 Test Item Value Reference Range Interpretation Comments CHOLESTEROL (test code = 2210) 138 MG/DL TRIGLYCERIDES (test code = 2232) 114 MG/DL HDL CHOLESTEROL (test code = 2220) 45 MG/DL CALC LDL CHOL (test code = 2237) 73 MG/DL RISK RATIO LDL/HDL (test code = 1.62 RATIO 2238) HEMOGLOBIN [id number] 00:00:00 Test Item Value Reference Range Interpretation Comments HEMOGLOBIN A1c (test code = 72894) 5.5 % H. PYLORI (BREATH)2021-09-05 00:00:00 Test Item Value Reference Range Interpretation Comments H. PYLORI (BREATH) (test code = NEGATIVE 42308) HEMOGLOBIN [id number] 00:00:00 Test Item Value Reference Range Interpretation Comments HEMOGLOBIN A1c (test code = 68165) 5.5 % HEMOGLOBIN [id number] 00:00:00 Test Item Value Reference Range Interpretation Comments HEMOGLOBIN A1c (test code = 31609) 5.5 % H. PYLORI (BREATH)2021-09-05 00:00:00 Test Item Value Reference Range Interpretation Comments H. PYLORI (BREATH) (test code = NEGATIVE 38066) LIPID [id number] 00:00:00 Test Item Value Reference Range Interpretation Comments CHOLESTEROL (test code = 2210) 138 MG/DL TRIGLYCERIDES (test code = 2232) 114 MG/DL HDL CHOLESTEROL (test code = 2220) 45 MG/DL CALC LDL CHOL (test code = 2237) 73 MG/DL RISK RATIO LDL/HDL (test code = 1.62 RATIO 2238) LIPID [id number] 00:00:00 Test Item Value Reference Range Interpretation [...] H. PYLORI (BREATH) (test code = NEGATIVE 04175) HEMOGLOBIN [id number] 00:00:00 Test Item Value Reference Range Interpretation Comments HEMOGLOBIN A1c (test code = 00967) 5.5 % HEMOGLOBIN [id number] 00:00:00 Test Item Value Reference Range Interpretation Comments HEMOGLOBIN A1c (test code = 84036) 5.5 % H. PYLORI (BREATH)2021-09-05 00:00:00 Test Item Value Reference Range Interpretation Comments H. PYLORI (BREATH) (test code = NEGATIVE 00465) HEMOGLOBIN [id number] 00:00:00 Test Item Value Reference Range Interpretation Comments HEMOGLOBIN A1c (test code = 63616) 5.5 % LIPID [id number] 00:00:00 Test Item Value Reference Range Interpretation Comments CHOLESTEROL (test code = 2210) 138 MG/DL TRIGLYCERIDES (test code = 2232) 114 MG/DL HDL CHOLESTEROL (test code = 2220) 45 MG/DL CALC LDL CHOL (test code = 2237) 73 MG/DL RISK RATIO LDL/HDL (test code = 1.62 RATIO 2238) LIPID [id number] 00:00:00 Test Item Value Reference Range Interpretation Comments CHOLESTEROL (test code = 2210) 138 MG/DL TRIGLYCERIDES (test code = 2232) 114 MG/DL HDL CHOLESTEROL (test code = 2220) 45 MG/DL CALC LDL CHOL (test code = 2237) 73 MG/DL RISK RATIO LDL/HDL (test code = 1.62 RATIO 2238) HEMOGLOBIN [id number] 00:00:00 Test Item Value Reference Range Interpretation Comments HEMOGLOBIN A1c (test code = 69884) 5.5 % H. PYLORI (BREATH)2021-09-05 00:00:00 Test Item Value Reference Range Interpretation Comments H. PYLORI (BREATH) (test code = NEGATIVE 34671) H. PYLORI (BREATH)2021-09-05 00:00:00 Test Item Value Reference Range Interpretation Comments H. PYLORI (BREATH) (test code = NEGATIVE 80764) HEMOGLOBIN [id number] 00:00:00 Test Item Value Reference Range Interpretation Comments HEMOGLOBIN A1c (test code = 63348) 5.5 % HEMOGLOBIN [id number] 00:00:00 Test Item Value Reference Range Interpretation Comments HEMOGLOBIN A1c (test code = 81469) 5.5 % LIPID [id number] 00:00:00 Test Item Value Reference Range Interpretation Comments CHOLESTEROL (test code = 2210) 138 MG/DL TRIGLYCERIDES (test code = 2232) 114 MG/DL HDL CHOLESTEROL (test code = 2220) 45 MG/DL CALC LDL CHOL (test code = 2237) 73 MG/DL RISK RATIO LDL/HDL (test code = 1.62 RATIO 2238) LIPID [id number] 00:00:00 Test Item Value Reference Range Interpretation [...] H. PYLORI (BREATH) (test code = NEGATIVE 16076) H. PYLORI (BREATH)2021-09-05 00:00:00 Test Item Value Reference Range Interpretation Comments H. PYLORI (BREATH) (test code = NEGATIVE 39227) HEMOGLOBIN [id number] 00:00:00 Test Item Value Reference Range Interpretation Comments HEMOGLOBIN A1c (test code = 07980) 5.5 % HEMOGLOBIN [id number] 00:00:00 Test Item Value Reference Range Interpretation Comments HEMOGLOBIN A1c (test code = 70573) 5.5 % HEMOGLOBIN [id number] 00:00:00 Test Item Value Reference Range Interpretation Comments HEMOGLOBIN A1c (test code = 53809) 5.5 % LIPID [id number] 00:00:00 Test Item Value Reference Range Interpretation Comments CHOLESTEROL (test code = 2210) 138 MG/DL TRIGLYCERIDES (test code = 2232) 114 MG/DL HDL CHOLESTEROL (test code = 2220) 45 MG/DL CALC LDL CHOL (test code = 2237) 73 MG/DL RISK RATIO LDL/HDL (test code = 1.62 RATIO 2238) LIPID [id number] 00:00:00 Test Item Value Reference Range Interpretation [...] H. PYLORI (BREATH) (test code = NEGATIVE 03177) HEMOGLOBIN [id number] 00:00:00 Test Item Value Reference Range Interpretation Comments HEMOGLOBIN A1c (test code = 37445) 5.5 % HEMOGLOBIN [id number] 00:00:00 Test Item Value Reference Range Interpretation Comments HEMOGLOBIN A1c (test code = 58588) 5.5 % H. PYLORI (BREATH)2021-09-05 00:00:00 Test Item Value Reference Range Interpretation Comments H. PYLORI (BREATH) (test code = NEGATIVE 07082) HEMOGLOBIN [id number] 00:00:00 Test Item Value Reference Range Interpretation Comments HEMOGLOBIN A1c (test code = 62160) 5.5 % LIPID [id number] 00:00:00 Test Item Value Reference Range Interpretation Comments CHOLESTEROL (test code = 2210) 138 MG/DL TRIGLYCERIDES (test code = 2232) 114 MG/DL HDL CHOLESTEROL (test code = 2220) 45 MG/DL CALC LDL CHOL (test code = 2237) 73 MG/DL RISK RATIO LDL/HDL (test code = 1.62 RATIO 2238) LIPID [id number] 00:00:00 Test Item Value Reference Range Interpretation Comments CHOLESTEROL (test code = 2210) 138 MG/DL TRIGLYCERIDES (test code = 2232) 114 MG/DL HDL CHOLESTEROL (test code = 2220) 45 MG/DL CALC LDL CHOL (test code = 2237) 73 MG/DL RISK RATIO LDL/HDL (test code = 1.62 RATIO 2238) COMPREHENSIVE METABOLIC [id number] 05:52:46 Test Item Value Reference Range Interpretation Comments GLUCOSE (test code = 110 MG/DL 70-99 H 2216) BUN (test code = 12 MG/DL 6-20 2207) CREATININE (test 0.67 MG/DL 0.60-1.30 code = 2214) eGFR (2020 CKD-EPI) 115 >60 (test code = 49854) ML/MIN/1.73 CALC BUN/CREAT (test 18 RATIO 6-28 [...] AST (test code = 28 U/L 9-40 8) ALT (test code = 28 U/L 5-40 9) C-REACTIVE [id number] 05:52:34 Test Item Value Reference Range Interpretation Comments C-REACTIVE PROTEIN 4.8 MG/DL <0.5 H UNLESS O THERWISE (test code = 3513) INDICATED , ALL TESTING [facility] [employer]. [address] [place] [id number] [place] [address] DIRECTOR: LUIZ STUBBS M.D. CLIA NUMBER [id number] CAP ACCREDITATION N O. [id number] CBC W/AUTO DIFF WITH [id number] 04:54:28 Test Item Value Reference Range Interpretation [...] RBCS 0.00 K/UL 0.00-0.11 (test code = 81389) CBC W/AUTO [id number] 00:00:00 Test Item Value Reference Range Interpretation [...] NUCLEATED RBCS (test code = 0.00 K/UL 15324) CBC W/AUTO [id number] 00:00:00 Test Item Value Reference Range Interpretation [...] NUCLEATED RBCS (test code = 0.00 K/UL 69720) COMPREHENSIVE METABOLIC [id number] 00:00:00 Test Item Value Reference Range Interpretation Comments GLUCOSE (test code = 2217) 110 MG/DL BUN (test code = 2208) 12 MG/DL CREATININE (test code = 2214) 0.67 MG/DL eGFR (2020 CKD-EPI) (test 115 ML/MIN/1.73 code = 42544) CALC BUN/CREAT (test code = 18 RATIO 2235) SODIUM (test code = 2231) 148 MEQ/L POTASSIUM (test code = 2228) 5.0 MEQ/L CHLORIDE (test code = 2215) 108 MEQ/L CARBON DIOXIDE (test code = 30 MEQ/L 2206) CALCIUM (test code = 2209) 9.7 MG/DL PROTEIN, TOTAL (test code = 8.2 G/DL 2229) ALBUMIN (test code = 2201) 4.3 G/DL CALC GLOBULIN (test code = 3.9 G/DL 2240) CALC A/G RATIO (test code = 1.1 RATIO 2234) BILIRUBIN, TOTAL (test code = 0.5 MG/DL 2207) ALKALINE PHOSPHATASE (test 87 U/L code = 2204) AST (test code = 2218) 28 U/L ALT (test code = 2219) 28 U/L C-REACTIVE [id number] 00:00:00 Test Item Value Reference Range Interpretation Comments C-REACTIVE PROTEIN (test code = 4.8 MG/DL 3513) CBC W/AUTO [id number] 00:00:00 Test Item Value Reference Range Interpretation [...] NUCLEATED RBCS (test code = 0.00 K/UL 84344) CBC W/AUTO [id number] 00:00:00 Test Item Value Reference Range Interpretation [...] NUCLEATED RBCS (test code = 0.00 K/UL 29603) CBC W/AUTO [id number] 00:00:00 Test Item Value Reference Range Interpretation [...] NUCLEATED RBCS (test code = 0.00 K/UL 73858) CBC W/AUTO [id number] 00:00:00 Test Item Value Reference Range Interpretation [...] NUCLEATED RBCS (test code = 0.00 K/UL 47553) COMPREHENSIVE METABOLIC [id number] 00:00:00 Test Item Value Reference Range Interpretation Comments GLUCOSE (test code = 2217) 110 MG/DL BUN (test code = 2208) 12 MG/DL CREATININE (test code = 2214) 0.67 MG/DL eGFR (2020 CKD-EPI) (test 115 ML/MIN/1.73 code = 80461) CALC BUN/CREAT (test code = 18 RATIO [...] code = 2219) 28 U/L COMPREHENSIVE METABOLIC [id number] 00:00:00 Test Item Value Reference Range Interpretation Comments GLUCOSE (test code = 2217) 110 MG/DL BUN (test code = 2208) 12 MG/DL CREATININE (test code = 2214) 0.67 MG/DL eGFR (2020 CKD-EPI) (test 115 ML/MIN/1.73 code = 23407) CALC BUN/CREAT (test code = 18 RATIO [...] (test code = 2219) 28 U/L C-REACTIVE [id number] 00:00:00 Test Item Value Reference Range Interpretation Comments C-REACTIVE PROTEIN (test code = 4.8 MG/DL 3513) C-REACTIVE [id number] 00:00:00 Test Item Value Reference Range Interpretation Comments C-REACTIVE PROTEIN (test code = 4.8 MG/DL 3513) CBC W/AUTO [id number] 00:00:00 Test Item Value Reference Range Interpretation [...] NUCLEATED RBCS (test code = 0.00 K/UL 37444) CBC W/AUTO [id number] 00:00:00 Test Item Value Reference Range Interpretation [...] NUCLEATED RBCS (test code = 0.00 K/UL 85899) CBC W/AUTO [id number] 00:00:00 Test Item Value Reference Range Interpretation [...] NUCLEATED RBCS (test code = 0.00 K/UL 16851) COMPREHENSIVE METABOLIC [id number] 00:00:00 Test Item Value Reference Range Interpretation Comments GLUCOSE (test code = 2217) 110 MG/DL BUN (test code = 2208) 12 MG/DL CREATININE (test code = 2214) 0.67 MG/DL eGFR (2020 CKD-EPI) (test 115 ML/MIN/1.73 code = 98439) CALC BUN/CREAT (test code = 18 RATIO [...] BILIRUBIN, TOTAL (test code = 0.5 MG/DL 220) ALKALINE PHOSPHATASE (test 87 U/L code = 2204) AST (test code = 2218) 28 U/L ALT (test code = 2219) 28 U/L CBC W/AUTO [id number] 00:00:00 Test Item Value Reference Range Interpretation [...] NUCLEATED RBCS (test code = 0.00 K/UL 55814) COMPREHENSIVE METABOLIC [id number] 00:00:00 Test Item Value Reference Range Interpretation Comments GLUCOSE (test code = 2217) 110 MG/DL BUN (test code = 2208) 12 MG/DL CREATININE (test code = 2214) 0.67 MG/DL eGFR (2020 CKD-EPI) (test 115 ML/MIN/1.73 code = 78700) CALC BUN/CREAT (test code = 18 RATIO [...] code = 2219) 28 U/L COMPREHENSIVE METABOLIC [id number] 00:00:00 Test Item Value Reference Range Interpretation Comments GLUCOSE (test code = 2217) 110 MG/DL BUN (test code = 2208) 12 MG/DL CREATININE (test code = 2214) 0.67 MG/DL eGFR (2020 CKD-EPI) (test 115 ML/MIN/1.73 code = 95443) CALC BUN/CREAT (test code = 18 RATIO [...] (test code = 2219) 28 U/L C-REACTIVE [id number] 00:00:00 Test Item Value Reference Range Interpretation Comments C-REACTIVE PROTEIN (test code = 4.8 MG/DL 3513) C-REACTIVE [id number] 00:00:00 Test Item Value Reference Range Interpretation Comments C-REACTIVE PROTEIN (test code = 4.8 MG/DL 3513) C-REACTIVE [id number] 00:00:00 Test Item Value Reference Range Interpretation Comments C-REACTIVE PROTEIN (test code = 4.8 MG/DL 3513) CBC W/AUTO [id number] 00:00:00 Test Item Value Reference Range Interpretation [...] NUCLEATED RBCS (test code = 0.00 K/UL 22016) CBC W/AUTO [id number] 00:00:00 Test Item Value Reference Range Interpretation [...] NUCLEATED RBCS (test code = 0.00 K/UL 03507) CBC W/AUTO [id number] 00:00:00 Test Item Value Reference Range Interpretation [...] NUCLEATED RBCS (test code = 0.00 K/UL 78870) COMPREHENSIVE METABOLIC [id number] 00:00:00 Test Item Value Reference Range Interpretation Comments GLUCOSE (test code = 2217) 110 MG/DL BUN (test code = 2208) 12 MG/DL CREATININE (test code = 2214) 0.67 MG/DL eGFR (2020 CKD-EPI) (test 115 ML/MIN/1.73 code = 41701) CALC BUN/CREAT (test code = 18 RATIO [...] code = 2219) 28 U/L COMPREHENSIVE METABOLIC [id number] 00:00:00 Test Item Value Reference Range Interpretation Comments GLUCOSE (test code = 2217) 110 MG/DL BUN (test code = 2208) 12 MG/DL CREATININE (test code = 2214) 0.67 MG/DL eGFR (2020 CKD-EPI) (test 115 ML/MIN/1.73 code = 19884) CALC BUN/CREAT (test code = 18 RATIO [...] (test code = 2219) 28 U/L C-REACTIVE [id number] 00:00:00 Test Item Value Reference Range Interpretation Comments C-REACTIVE PROTEIN (test code = 4.8 MG/DL 3513) C-REACTIVE [id number] 00:00:00 Test Item Value Reference Range Interpretation Comments C-REACTIVE PROTEIN (test code = 4.8 MG/DL 3513) CBC W/AUTO [id number] 00:00:00 Test Item Value Reference Range Interpretation [...] NUCLEATED RBCS (test code = 0.00 K/UL 34531) CBC W/AUTO [id number] 00:00:00 Test Item Value Reference Range Interpretation [...] NUCLEATED RBCS (test code = 0.00 K/UL 54841) CBC W/AUTO [id number] 00:00:00 Test Item Value Reference Range Interpretation [...] NUCLEATED RBCS (test code = 0.00 K/UL 00558) COMPREHENSIVE METABOLIC [id number] 00:00:00 Test Item Value Reference Range Interpretation Comments GLUCOSE (test code = 2217) 110 MG/DL BUN (test code = 2208) 12 MG/DL CREATININE (test code = 2214) 0.67 MG/DL eGFR (2020 CKD-EPI) (test 115 ML/MIN/1.73 code = 26820) CALC BUN/CREAT (test code = 18 RATIO [...] code = 2219) 28 U/L COMPREHENSIVE METABOLIC [id number] 00:00:00 Test Item Value Reference Range Interpretation Comments GLUCOSE (test code = 2217) 110 MG/DL BUN (test code = 2208) 12 MG/DL CREATININE (test code = 2214) 0.67 MG/DL eGFR (2020 CKD-EPI) (test 115 ML/MIN/1.73 code = 42272) CALC BUN/CREAT (test code = 18 RATIO [...] (test code = 2219) 28 U/L C-REACTIVE [id number] 00:00:00 Test Item Value Reference Range Interpretation Comments C-REACTIVE PROTEIN (test code = 4.8 MG/DL 3513) C-REACTIVE [id number] 00:00:00 Test Item Value Reference Range Interpretation Comments C-REACTIVE PROTEIN (test code = 4.8 MG/DL 3513) CBC W/AUTO [id number] 00:00:00 Test Item Value Reference Range Interpretation [...] NUCLEATED RBCS (test code = 0.00 K/UL 84811) CBC W/AUTO [id number] 00:00:00 Test Item Value Reference Range Interpretation [...] NUCLEATED RBCS (test code = 0.00 K/UL 91545) CBC W/AUTO [id number] 00:00:00 Test Item Value Reference Range Interpretation [...] NUCLEATED RBCS (test code = 0.00 K/UL 73785) COMPREHENSIVE METABOLIC [id number] 00:00:00 Test Item Value Reference Range Interpretation Comments GLUCOSE (test code = 2217) 110 MG/DL BUN (test code = 2208) 12 MG/DL CREATININE (test code = 2214) 0.67 MG/DL eGFR (2020 CKD-EPI) (test 115 ML/MIN/1.73 code = 47345) CALC BUN/CREAT (test code = 18 RATIO [...] code = 2219) 28 U/L COMPREHENSIVE METABOLIC [id number] 00:00:00 Test Item Value Reference Range Interpretation Comments GLUCOSE (test code = 2217) 110 MG/DL BUN (test code = 2208) 12 MG/DL CREATININE (test code = 2214) 0.67 MG/DL eGFR (2020 CKD-EPI) (test 115 ML/MIN/1.73 code = 34969) CALC BUN/CREAT (test code = 18 RATIO [...] (test code = 2219) 28 U/L C-REACTIVE [id number] 00:00:00 Test Item Value Reference Range Interpretation Comments C-REACTIVE PROTEIN (test code = 4.8 MG/DL 3513) C-REACTIVE [id number] 00:00:00 Test Item Value Reference Range Interpretation Comments C-REACTIVE PROTEIN (test code = 4.8 MG/DL 3513) CBC W/AUTO [id number] 00:00:00 Test Item Value Reference Range Interpretation [...] NUCLEATED RBCS (test code = 0.00 K/UL 43981) CBC W/AUTO [id number] 00:00:00 Test Item Value Reference Range Interpretation [...] NUCLEATED RBCS (test code = 0.00 K/UL 06540) CBC W/AUTO [id number] 00:00:00 Test Item Value Reference Range Interpretation [...] NUCLEATED RBCS (test code = 0.00 K/UL 52233) COMPREHENSIVE METABOLIC [id number] 00:00:00 Test Item Value Reference Range Interpretation Comments GLUCOSE (test code = 2217) 110 MG/DL BUN (test code = 2208) 12 MG/DL CREATININE (test code = 2214) 0.67 MG/DL eGFR (2020 CKD-EPI) (test 115 ML/MIN/1.73 code = 62903) CALC BUN/CREAT (test code = 18 RATIO [...] code = 2219) 28 U/L COMPREHENSIVE METABOLIC [id number] 00:00:00 Test Item Value Reference Range Interpretation Comments GLUCOSE (test code = 2217) 110 MG/DL BUN (test code = 2208) 12 MG/DL CREATININE (test code = 2214) 0.67 MG/DL eGFR (2020 CKD-EPI) (test 115 ML/MIN/1.73 code = 91922) CALC BUN/CREAT (test code = 18 RATIO [...] (test code = 2219) 28 U/L C-REACTIVE [id number] 00:00:00 Test Item Value Reference Range Interpretation Comments C-REACTIVE PROTEIN (test code = 4.8 MG/DL 3513) C-REACTIVE [id number] 00:00:00 Test Item Value Reference Range Interpretation Comments C-REACTIVE PROTEIN (test code = 4.8 MG/DL 3513) CBC W/AUTO DIFF WITH [id number] 03:06:39 Test Item Value Reference Range Interpretation [...] message] code = 1065) WBC'S The system [employer] generated this result transmitted ref erence range: [...] 0.00-0.11 UNLESS O THERWISE (test code = 19533) INDICATE D, ALL TESTING PERFORM ED [facility], [place]. [address] [facility] [address] [facility] DIRECTOR: LUIZ STUBBS M.D. CLIA NUMBER [id number] [facility] ACCREDITATION N O. [id number] CBC W/AUTO [id number] 00:00:00 Test Item Value Reference Range Interpretation [...] NUCLEATED RBCS (test code = 0.00 K/UL 02046) CBC W/AUTO [id number] 00:00:00 Test Item Value Reference Range Interpretation [...] NUCLEATED RBCS (test code = 0.00 K/UL 74651) CBC W/AUTO [id number] 00:00:00 Test Item Value Reference Range Interpretation [...] NUCLEATED RBCS (test code = 0.00 K/UL 94063) CBC W/AUTO [id number] 00:00:00 Test Item Value Reference Range Interpretation [...] NUCLEATED RBCS (test code = 0.00 K/UL 17147) CBC W/AUTO [id number] 00:00:00 Test Item Value Reference Range Interpretation [...] NUCLEATED RBCS (test code = 0.00 K/UL 44679) CBC W/AUTO [id number] 00:00:00 Test Item Value Reference Range Interpretation [...] NUCLEATED RBCS (test code = 0.00 K/UL 90445) CBC W/AUTO [id number] 00:00:00 Test Item Value Reference Range Interpretation [...] NUCLEATED RBCS (test code = 0.00 K/UL 09470) CBC W/AUTO [id number] 00:00:00 Test Item Value Reference Range Interpretation [...] NUCLEATED RBCS (test code = 0.00 K/UL 26280) CBC W/AUTO [id number] 00:00:00 Test Item Value Reference Range Interpretation [...] NUCLEATED RBCS (test code = 0.00 K/UL 11818) CBC W/AUTO [id number] 00:00:00 Test Item Value Reference Range Interpretation [...] NUCLEATED RBCS (test code = 0.00 K/UL 98735) CBC W/AUTO [id number] 00:00:00 Test Item Value Reference Range Interpretation [...] NUCLEATED RBCS (test code = 0.00 K/UL 64733) CBC W/AUTO [id number] 00:00:00 Test Item Value Reference Range Interpretation [...] NUCLEATED RBCS (test code = 0.00 K/UL 40064) CBC W/AUTO [id number] 00:00:00 Test Item Value Reference Range Interpretation [...] NUCLEATED RBCS (test code = 0.00 K/UL 17146) CBC W/AUTO [id number] 00:00:00 Test Item Value Reference Range Interpretation [...] NUCLEATED RBCS (test code = 0.00 K/UL 29951) CBC W/AUTO [id number] 00:00:00 Test Item Value Reference Range Interpretation [...] NUCLEATED RBCS (test code = 0.00 K/UL 11327) CBC W/AUTO [id number] 00:00:00 Test Item Value Reference Range Interpretation [...] NUCLEATED RBCS (test code = 0.00 K/UL 93494) CBC W/AUTO [id number] 00:00:00 Test Item Value Reference Range Interpretation [...] NUCLEATED RBCS (test code = 0.00 K/UL 43808) CBC W/AUTO [id number] 00:00:00 Test Item Value Reference Range Interpretation [...] NUCLEATED RBCS (test code = 0.00 K/UL 22620) CBC W/AUTO [id number] 00:00:00 Test Item Value Reference Range Interpretation [...] NUCLEATED RBCS (test code = 0.00 K/UL 48270) CBC W/AUTO [id number] 00:00:00 Test Item Value Reference Range Interpretation [...] NUCLEATED RBCS (test code = 0.00 K/UL 43394) CBC W/AUTO [id number] 00:00:00 Test Item Value Reference Range Interpretation [...] NUCLEATED RBCS (test code = 0.00 K/UL 30476) CBC W/AUTO [id number] 00:00:00 Test Item Value Reference Range Interpretation [...] NUCLEATED RBCS (test code = 0.00 K/UL 36442) CBC W/AUTO DIFF WITH [id number] 12:11:11 Test Item Value Reference Range Interpretation [...] RBCS TEST NOT 0.00-0.11 (test code = 79978) PERFORMED K/UL COMMENTS (test code = TEST NOT 1016) PERFORMED CBC W/AUTO [id number] 00:00:00 Test Item Value Reference Range Interpretation [...] RBCS (test TEST NOT PERFORMED code = 38269) K/UL COMMENTS (test code = TEST NOT PERFORMED 1016) CBC W/AUTO [id number] 00:00:00 Test Item Value Reference Range Interpretation [...] RBCS (test TEST NOT PERFORMED code = 06894) K/UL COMMENTS (test code = TEST NOT PERFORMED 1016) CBC W/AUTO [id number] 00:00:00 Test Item Value Reference Range Interpretation [...] RBCS (test TEST NOT PERFORMED code = 99777) K/UL COMMENTS (test code = TEST NOT PERFORMED 1016) CBC W/AUTO [id number] 00:00:00 Test Item Value Reference Range Interpretation [...] RBCS (test TEST NOT PERFORMED code = 19358) K/UL COMMENTS (test code = TEST NOT PERFORMED 1016) CBC W/AUTO [id number] 00:00:00 Test Item Value Reference Range Interpretation [...] RBCS (test TEST NOT PERFORMED code = 08887) K/UL COMMENTS (test code = TEST NOT PERFORMED 1016) CBC W/AUTO [id number] 00:00:00 Test Item Value Reference Range Interpretation [...] RBCS (test TEST NOT PERFORMED code = 15793) K/UL COMMENTS (test code = TEST NOT PERFORMED 1016) CBC W/AUTO [id number] 00:00:00 Test Item Value Reference Range Interpretation [...] RBCS (test TEST NOT PERFORMED code = 47721) K/UL COMMENTS (test code = TEST NOT PERFORMED 1016) CBC W/AUTO [id number] 00:00:00 Test Item Value Reference Range Interpretation [...] RBCS (test TEST NOT PERFORMED code = 00585) K/UL COMMENTS (test code = TEST NOT PERFORMED 1016) CBC W/AUTO [id number] 00:00:00 Test Item Value Reference Range Interpretation [...] RBCS (test TEST NOT PERFORMED code = 88281) K/UL COMMENTS (test code = TEST NOT PERFORMED 1016) CBC W/AUTO [id number] 00:00:00 Test Item Value Reference Range Interpretation [...] RBCS (test TEST NOT PERFORMED code = 36365) K/UL COMMENTS (test code = TEST NOT PERFORMED 1016) CBC W/AUTO [id number] 00:00:00 Test Item Value Reference Range Interpretation [...] RBCS (test TEST NOT PERFORMED code = 81111) K/UL COMMENTS (test code = TEST NOT PERFORMED 1016) CBC W/AUTO [id number] 00:00:00 Test Item Value Reference Range Interpretation [...] RBCS (test TEST NOT PERFORMED code = 91252) K/UL COMMENTS (test code = TEST NOT PERFORMED 1016) CBC W/AUTO [id number] 00:00:00 Test Item Value Reference Range Interpretation [...] RBCS (test TEST NOT PERFORMED code = 53562) K/UL COMMENTS (test code = TEST NOT PERFORMED 1016) CBC W/AUTO [id number] 00:00:00 Test Item Value Reference Range Interpretation [...] RBCS (test TEST NOT PERFORMED code = 62579) K/UL COMMENTS (test code = TEST NOT PERFORMED 1016) CBC W/AUTO [id number] 00:00:00 Test Item Value Reference Range Interpretation [...] RBCS (test TEST NOT PERFORMED code = 90119) K/UL COMMENTS (test code = TEST NOT PERFORMED 1016) CBC W/AUTO [id number] 00:00:00 Test Item Value Reference Range Interpretation [...] RBCS (test TEST NOT PERFORMED code = 26693) K/UL COMMENTS (test code = TEST NOT PERFORMED 1016) CBC W/AUTO [id number] 00:00:00 Test Item Value Reference Range Interpretation [...] RBCS (test TEST NOT PERFORMED code = 75424) K/UL COMMENTS (test code = TEST NOT PERFORMED 1016) CBC W/AUTO [id number] 00:00:00 Test Item Value Reference Range Interpretation [...] RBCS (test TEST NOT PERFORMED code = 97017) K/UL COMMENTS (test code = TEST NOT PERFORMED 1016) CBC W/AUTO [id number] 00:00:00 Test Item Value Reference Range Interpretation [...] RBCS (test TEST NOT PERFORMED code = 47555) K/UL COMMENTS (test code = TEST NOT PERFORMED 1016) CBC W/AUTO [id number] 00:00:00 Test Item Value Reference Range Interpretation [...] RBCS (test TEST NOT PERFORMED code = 11206) K/UL COMMENTS (test code = TEST NOT PERFORMED 1016) CBC W/AUTO [id number] 00:00:00 Test Item Value Reference Range Interpretation [...] RBCS (test TEST NOT PERFORMED code = 52250) K/UL COMMENTS (test code = TEST NOT PERFORMED 1016) CBC W/AUTO [id number] 00:00:00 Test Item Value Reference Range Interpretation [...] RBCS (test TEST NOT PERFORMED code = 33495) K/UL COMMENTS (test code = TEST NOT PERFORMED 1016) COMPREHENSIVE METABOLIC [id number] 04:59:13 Test Item Value Reference Range Interpretation Comments GLUCOSE (test code = 99 MG/DL 70-99 2216) BUN (test code = 14 MG/DL 6-20 2207) CREATININE (test 0.78 MG/DL 0.60-1.30 code = 2214) eGFR (2020 CKD-EPI) 100 >60 (test code = 35762) ML/MIN/1.73 CALC BUN/CREAT (test 18 RATIO 6-28 code = 2235) SODIUM (test code = 146 MEQ/L 364-294 8736) POTASSIUM (test code 4.9 MEQ/L 3.5-5.4 = [...] [Automated message] (test code = 220) The [employer] which generated this result transmitted ref erence range: <=1.2. T he reference range was not used to int erpret this result as normal/abnormal . ALKALINE PHOSPHATASE 77 U/L 40-112 (test code = 220) AST (test code = 29 U/L 9-40 2217) ALT (test code = 26 U/L 5-40 UNLESS OTH ERWISE 2218) INDICATED, ALL TESTING PERFORM ED ATCL[facility]ICAL PATH [facility] LAB[facility]ATORIES, [facility]. [address] [place] [id number] [place] [address] DIRECTOR: LUIZ STUBBS M.D. CLIA NUMBER [id number] CAP ACCREDITATION N O. [id number] COMPREHENSIVE METABOLIC [id number] 00:00:00 Test Item Value Reference Range Interpretation Comments GLUCOSE (test code = 2217) 99 MG/DL BUN (test code = 2208) 14 MG/DL CREATININE (test code = 2214) 0.78 MG/DL eGFR (2020 CKD-EPI) (test 100 ML/MIN/1.73 code = 81918) CALC BUN/CREAT (test code = 18 RATIO 2234) SODIUM (test code = 2231) 146 MEQ/L POTASSIUM (test code = 2228) 4.9 MEQ/L CHLORIDE (test code = 2215) 108 MEQ/L CARBON DIOXIDE (test code = 29 MEQ/L 2205) CALCIUM (test code = 2209) 9.9 MG/DL PROTEIN, TOTAL (test code = 8.3 G/DL 2228) ALBUMIN (test code = 220) 4.4 G/DL CALC GLOBULIN (test code = 3.9 G/DL 2239) CALC A/G RATIO (test code = 1.1 RATIO 2233) BILIRUBIN, TOTAL (test code = 0.6 MG/DL 2207) ALKALINE PHOSPHATASE (test 77 U/L code = 2204) AST (test code = 2218) 29 U/L ALT (test code = 2219) 26 U/L COMPREHENSIVE METABOLIC [id number] 00:00:00 Test Item Value Reference Range Interpretation Comments GLUCOSE (test code = 2217) 99 MG/DL BUN (test code = 2208) 14 MG/DL CREATININE (test code = 2214) 0.78 MG/DL eGFR (2020 CKD-EPI) (test 100 ML/MIN/1.73 code = 99995) CALC BUN/CREAT (test code = 18 RATIO [...] A/G RATIO (test code = 1.1 RATIO 4) BILIRUBIN, TOTAL (test code = 0.6 MG/DL 2206) ALKALINE PHOSPHATASE (test 77 U/L code = 2204) AST (test code = 2218) 29 U/L ALT (test code = 2219) 26 U/L COMPREHENSIVE METABOLIC [id number] 00:00:00 Test Item Value Reference Range Interpretation Comments GLUCOSE (test code = 2217) 99 MG/DL BUN (test code = 2208) 14 MG/DL CREATININE (test code = 2214) 0.78 MG/DL eGFR (2020 CKD-EPI) (test 100 ML/MIN/1.73 code = 59484) CALC BUN/CREAT (test code = 18 RATIO [...] code = 2219) 26 U/L COMPREHENSIVE METABOLIC [id number] 00:00:00 Test Item Value Reference Range Interpretation Comments GLUCOSE (test code = 2217) 99 MG/DL BUN (test code = 2208) 14 MG/DL CREATININE (test code = 2214) 0.78 MG/DL eGFR (2020 CKD-EPI) (test 100 ML/MIN/1.73 code = 42545) CALC BUN/CREAT (test code = 18 RATIO [...] code = 2219) 26 U/L COMPREHENSIVE METABOLIC [id number] 00:00:00 Test Item Value Reference Range Interpretation Comments GLUCOSE (test code = 2217) 99 MG/DL BUN (test code = 2208) 14 MG/DL CREATININE (test code = 2214) 0.78 MG/DL eGFR (2020 CKD-EPI) (test 100 ML/MIN/1.73 code = 68603) CALC BUN/CREAT (test code = 18 RATIO [...] code = 2219) 26 U/L COMPREHENSIVE METABOLIC [id number] 00:00:00 Test Item Value Reference Range Interpretation Comments GLUCOSE (test code = 2217) 99 MG/DL BUN (test code = 2208) 14 MG/DL CREATININE (test code = 2214) 0.78 MG/DL eGFR (2020 CKD-EPI) (test 100 ML/MIN/1.73 code = 40376) CALC BUN/CREAT (test code = 18 RATIO [...] code = 2219) 26 U/L COMPREHENSIVE METABOLIC [id number] 00:00:00 Test Item Value Reference Range Interpretation Comments GLUCOSE (test code = 2217) 99 MG/DL BUN (test code = 2208) 14 MG/DL CREATININE (test code = 2214) 0.78 MG/DL eGFR (2020 CKD-EPI) (test 100 ML/MIN/1.73 code = 49761) CALC BUN/CREAT (test code = 18 RATIO [...] code = 2219) 26 U/L COMPREHENSIVE METABOLIC [id number] 00:00:00 Test Item Value Reference Range Interpretation Comments GLUCOSE (test code = 2216) 99 MG/DL BUN (test code = 2208) 14 MG/DL CREATININE (test code = 2214) 0.78 MG/DL eGFR (2020 CKD-EPI) (test 100 ML/MIN/1.73 code = 05879) CALC BUN/CREAT (test code = 18 RATIO 2235) SODIUM (test code = 2231) 146 MEQ/L POTASSIUM (test code = 2228) 4.9 MEQ/L CHLORIDE (test code = 2215) 108 MEQ/L CARBON DIOXIDE (test code = 29 MEQ/L 6) CALCIUM (test code = 2209) [...] code = 2219) 26 U/L COMPREHENSIVE METABOLIC [id number] 00:00:00 Test Item Value Reference Range Interpretation Comments GLUCOSE (test code = 2217) 99 MG/DL BUN (test code = 2208) 14 MG/DL CREATININE (test code = 2214) 0.78 MG/DL eGFR (2020 CKD-EPI) (test 100 ML/MIN/1.73 code = 19555) CALC BUN/CREAT (test code = 18 RATIO [...] code = 2219) 26 U/L COMPREHENSIVE METABOLIC [id number] 00:00:00 Test Item Value Reference Range Interpretation Comments GLUCOSE (test code = 2217) 99 MG/DL BUN (test code = 2208) 14 MG/DL CREATININE (test code = 2214) 0.78 MG/DL eGFR (2020 CKD-EPI) (test 100 ML/MIN/1.73 code = 23477) CALC BUN/CREAT (test code = 18 RATIO 2235) SODIUM (test code = 2231) 146 MEQ/L POTASSIUM (test code = 2228) 4.9 MEQ/L CHLORIDE (test code = 2215) 108 MEQ/L CARBON DIOXIDE (test code = 29 MEQ/L 6) CALCIUM (test code = 2209) [...] code = 2219) 26 U/L COMPREHENSIVE METABOLIC [id number] 00:00:00 Test Item Value Reference Range Interpretation Comments GLUCOSE (test code = 2217) 99 MG/DL BUN (test code = 2208) 14 MG/DL CREATININE (test code = 2214) 0.78 MG/DL eGFR (2020 CKD-EPI) (test 100 ML/MIN/1.73 code = 08369) CALC BUN/CREAT (test code = 18 RATIO [...] code = 2219) 26 U/L COMPREHENSIVE METABOLIC [id number] 00:00:00 Test Item Value Reference Range Interpretation Comments GLUCOSE (test code = 2217) 99 MG/DL BUN (test code = 2208) 14 MG/DL CREATININE (test code = 2214) 0.78 MG/DL eGFR (2020 CKD-EPI) (test 100 ML/MIN/1.73 code = 68926) CALC BUN/CREAT (test code = 18 RATIO [...] code = 2219) 26 U/L COMPREHENSIVE METABOLIC [id number] 00:00:00 Test Item Value Reference Range Interpretation Comments GLUCOSE (test code = 2217) 99 MG/DL BUN (test code = 2208) 14 MG/DL CREATININE (test code = 2214) 0.78 MG/DL eGFR (2020 CKD-EPI) (test 100 ML/MIN/1.73 code = 48845) CALC BUN/CREAT (test code = 18 RATIO [...] code = 2219) 26 U/L COMPREHENSIVE METABOLIC [id number] 00:00:00 Test Item Value Reference Range Interpretation Comments GLUCOSE (test code = 2217) 99 MG/DL BUN (test code = 2208) 14 MG/DL CREATININE (test code = 2214) 0.78 MG/DL eGFR (2020 CKD-EPI) (test 100 ML/MIN/1.73 code = 84830) CALC BUN/CREAT (test code = 18 RATIO [...] A/G RATIO (test code = 1.1 RATIO 4) BILIRUBIN, TOTAL (test code = 0.6 MG/DL 2206) ALKALINE PHOSPHATASE (test 77 U/L code = 2204) AST (test code = 2218) 29 U/L ALT (test code = 2219) 26 U/L POCT [id number] 21:38:00 Test Item Value Reference Range Interpretation Comments POCT PREG (test code = 1605) negative On board controls acceptable with present C Line (test code = 3574) POCT PREG LOT # (test code = 3575) [id number] POCT PREG TEST DATE (test 03/15/22 code = 3576) Lab Interpretation (test code = Normal 26612-0) [facility]-PCR (HIGH RISK) 2020-02-08 00:00:00 Test Item Value Reference Range Interpretation Comments SARS-CoV-2 INTERPRETATION Negative (test code = 47448) SOURCE (test code = 43356) NASOPHARYNGEAL_SWAB _IN_VTM__UTM SARS-CoV-2 (COVID-19) by RT-PCR (HIGH RISK)2020-02-08 00:00:00 Test Item Value Reference Range Interpretation Comments SARS-CoV-2 INTERPRETATION Negative (test code = 50889) SOURCE (test code = 93017) NASOPHARYNGEAL_SWAB _IN_VTM__UTM SARS-CoV-2 (COVID-19) by RT-PCR (HIGH RISK)2020-02-08 00:00:00 Test Item Value Reference Range Interpretation Comments SARS-CoV-2 INTERPRETATION Negative (test code = 52950) SOURCE (test code = 38501) NASOPHARYNGEAL_SWAB _IN_VTM__UTM SARS-CoV-2 (COVID-19) by RT-PCR (HIGH RISK)2020-02-08 00:00:00 Test Item Value Reference Range Interpretation Comments SARS-CoV-2 INTERPRETATION Negative (test code = 38523) SOURCE (test code = 40626) NASOPHARYNGEAL_SWAB _IN_VTM__UTM SARS-CoV-2 (COVID-19) by RT-PCR (HIGH RISK)2020-02-08 00:00:00 Test Item Value Reference Range Interpretation Comments SARS-CoV-2 INTERPRETATION Negative (test code = 93373) SOURCE (test code = 30639) NASOPHARYNGEAL_SWAB _IN_VTM__UTM SARS-CoV-2 (COVID-19) by RT-PCR (HIGH RISK)2020-02-08 00:00:00 Test Item Value Reference Range Interpretation Comments SARS-CoV-2 INTERPRETATION Negative (test code = 44985) SOURCE (test code = 62015) NASOPHARYNGEAL_SWAB _IN_VTM__UTM SARS-CoV-2 (COVID-19) by RT-PCR (HIGH RISK)2020-02-08 00:00:00 Test Item Value Reference Range Interpretation Comments SARS-CoV-2 INTERPRETATION Negative (test code = 12318) SOURCE (test code = 99165) NASOPHARYNGEAL_SWAB _IN_VTM__UTM SARS-CoV-2 (COVID-19) by RT-PCR (HIGH RISK)2020-02-08 00:00:00 Test Item Value Reference Range Interpretation Comments SARS-CoV-2 INTERPRETATION Negative (test code = 41914) SOURCE (test code = 74480) NASOPHARYNGEAL_SWAB _IN_VTM__UTM QUANTIFERON TB GOLD PLUS [ADDED]2019-10-14 00:00:00 Test Item Value Reference Range Interpretation Comments QUANTIFERON TB GOLD PLUS (test NEGATIVE code = 10669) TB1-NIL (test code = 00880) 0.00 IU/ML TB2-NIL (test code = 71379) -0.01 IU/ML MITOGEN-NIL (test code = 56266) 7.87 IU/ML NIL (test code = 66649) 0.02 IU/ML QUANTIFERON TB GOLD PLUS [ADDED]2019-10-14 00:00:00 Test Item Value Reference Range Interpretation Comments QUANTIFERON TB GOLD PLUS (test NEGATIVE code = 43579) TB1-NIL (test code = 47417) 0.00 IU/ML TB2-NIL (test code = 92699) -0.01 IU/ML MITOGEN-NIL (test code = 75401) 7.87 IU/ML NIL (test code = 31058) 0.02 IU/ML QUANTIFERON TB GOLD PLUS [ADDED]2019-10-14 00:00:00 Test Item Value Reference Range Interpretation Comments QUANTIFERON TB GOLD PLUS (test NEGATIVE code = 62353) TB1-NIL (test code = 73507) 0.00 IU/ML TB2-NIL (test code = 93306) -0.01 IU/ML MITOGEN-NIL (test code = 53926) 7.87 IU/ML NIL (test code = 86221) 0.02 IU/ML QUANTIFERON TB GOLD PLUS [ADDED]2019-10-14 00:00:00 Test Item Value Reference Range Interpretation Comments QUANTIFERON TB GOLD PLUS (test NEGATIVE code = 02961) TB1-NIL (test code = 75326) 0.00 IU/ML TB2-NIL (test code = 16991) -0.01 IU/ML MITOGEN-NIL (test code = 50628) 7.87 IU/ML NIL (test code = 30483) 0.02 IU/ML QUANTIFERON TB GOLD PLUS [ADDED]2019-10-14 00:00:00 Test Item Value Reference Range Interpretation Comments QUANTIFERON TB GOLD PLUS (test NEGATIVE code = 47490) TB1-NIL (test code = 75287) 0.00 IU/ML TB2-NIL (test code = 92574) -0.01 IU/ML MITOGEN-NIL (test code = 70824) 7.87 IU/ML NIL (test code = 42317) 0.02 IU/ML QUANTIFERON TB GOLD PLUS [ADDED]2019-10-14 00:00:00 Test Item Value Reference Range Interpretation Comments QUANTIFERON TB GOLD PLUS (test NEGATIVE code = 02062) TB1-NIL (test code = 57875) 0.00 IU/ML TB2-NIL (test code = 26562) -0.01 IU/ML MITOGEN-NIL (test code = 17838) 7.87 IU/ML NIL (test code = 45009) 0.02 IU/ML QUANTIFERON TB GOLD PLUS [ADDED]2019-10-14 00:00:00 Test Item Value Reference Range Interpretation Comments QUANTIFERON TB GOLD PLUS (test NEGATIVE code = 25142) TB1-NIL (test code = 27375) 0.00 IU/ML TB2-NIL (test code = 31451) -0.01 IU/ML MITOGEN-NIL (test code = 52394) 7.87 IU/ML NIL (test code = 79131) 0.02 IU/ML QUANTIFERON TB GOLD PLUS [ADDED]2019-10-14 00:00:00 Test Item Value Reference Range Interpretation Comments QUANTIFERON TB GOLD PLUS (test NEGATIVE code = 13427) TB1-NIL (test code = 24060) 0.00 IU/ML TB2-NIL (test code = 80307) -0.01 IU/ML MITOGEN-NIL (test code = 46123) 7.87 IU/ML NIL (test code = 98307) 0.02 IU/ML CBC W/AUTO [id number] 00:00:00 Test Item Value Reference Range Interpretation [...] code = 1015) 283 K/UL CBC W/AUTO [id number] 00:00:00 Test Item Value Reference Range Interpretation [...] code = 1015) 283 K/UL COMPREHENSIVE METABOLIC [id number] 00:00:00 Test Item Value Reference Range Interpretation Comments GLUCOSE (test code = 2217) 101 MG/DL BUN (test code = 2208) 9 MG/DL CREATININE (test code = 2214) 0.59 MG/DL eGFR AMER. (test code 138 ML/MIN/1.73 = 75083) eGFR NON- AMER. (test 119 ML/MIN/1.73 code = 34414) CALC BUN/CREAT (test code = 15 RATIO [...] A/G RATIO (test code = 1.3 RATIO 4) BILIRUBIN, TOTAL (test code = 0.3 MG/DL 2206) ALKALINE PHOSPHATASE (test 79 U/L code = 2204) AST (test code = 2218) 32 U/L ALT (test code = 2219) 35 U/L ACUTE HEPATITIS [id number] 00:00:00 Test Item Value Reference Range Interpretation Comments HEPATITIS A IgM (test code = NON-REACTIVE 74985) HEPATITIS B CORE IgM (test code NON-REACTIVE = 0167) HEPATITIS B SURF AG (test code = NON-REACTIVE 6308) HEPATITIS C ANTIBODY (test code NON-REACTIVE = 1785) INTERPRETATION HEPATITIS A: (NOTE) (test code = 2552) INTERPRETATION HEPATITIS B: (NOTE) (test code = 14803) INTERPRETATION HEPATITIS C: (NOTE) (test code = 61227) CBC W/AUTO [id number] 00:00:00 Test Item Value Reference Range Interpretation [...] code = 1015) 283 K/UL CBC W/AUTO [id number] 00:00:00 Test Item Value Reference Range Interpretation [...] code = 1015) 283 K/UL CBC W/AUTO [id number] 00:00:00 Test Item Value Reference Range Interpretation [...] code = 1015) 283 K/UL CBC W/AUTO [id number] 00:00:00 Test Item Value Reference Range Interpretation [...] code = 1015) 283 K/UL COMPREHENSIVE METABOLIC [id number] 00:00:00 Test Item Value Reference Range Interpretation Comments GLUCOSE (test code = 2217) 101 MG/DL BUN (test code = 2208) 9 MG/DL CREATININE (test code = 2214) 0.59 MG/DL eGFR AMER. (test code 138 ML/MIN/1.73 = 25518) eGFR NON- AMER. (test 119 ML/MIN/1.73 code = 88459) CALC BUN/CREAT (test code = 15 RATIO [...] code = 2219) 35 U/L COMPREHENSIVE METABOLIC [id number] 00:00:00 Test Item Value Reference Range Interpretation Comments GLUCOSE (test code = 2217) 101 MG/DL BUN (test code = 2208) 9 MG/DL CREATININE (test code = 2214) 0.59 MG/DL eGFR AMER. (test code 138 ML/MIN/1.73 = 92729) eGFR NON- AMER. (test 119 ML/MIN/1.73 code = 44685) CALC BUN/CREAT (test code = 15 RATIO [...] code = 2219) 35 U/L ACUTE HEPATITIS [id number] 00:00:00 Test Item Value Reference Range Interpretation Comments HEPATITIS A IgM (test code = NON-REACTIVE 93549) HEPATITIS B CORE IgM (test code NON-REACTIVE = 4644) HEPATITIS B SURF AG (test code = NON-REACTIVE 1442) HEPATITIS C ANTIBODY (test code NON-REACTIVE = 4681) INTERPRETATION HEPATITIS A: (NOTE) (test code = 2552) INTERPRETATION HEPATITIS B: (NOTE) (test code = 56678) INTERPRETATION HEPATITIS C: (NOTE) (test code = 56588) ACUTE HEPATITIS [id number] 00:00:00 Test Item Value Reference Range Interpretation Comments HEPATITIS A IgM (test code = NON-REACTIVE 50364) HEPATITIS B CORE IgM (test code NON-REACTIVE = 4644) HEPATITIS B SURF AG (test code = NON-REACTIVE 3419) HEPATITIS C ANTIBODY (test code NON-REACTIVE = 4671) INTERPRETATION HEPATITIS A: (NOTE) (test code = 2552) INTERPRETATION HEPATITIS B: (NOTE) (test code = 88069) INTERPRETATION HEPATITIS C: (NOTE) (test code = 50420) CBC W/AUTO [id number] 00:00:00 Test Item Value Reference Range Interpretation [...] code = 1015) 283 K/UL CBC W/AUTO [id number] 00:00:00 Test Item Value Reference Range Interpretation [...] code = 1015) 283 K/UL COMPREHENSIVE METABOLIC [id number] 00:00:00 Test Item Value Reference Range Interpretation Comments GLUCOSE (test code = 2217) 101 MG/DL BUN (test code = 2208) 9 MG/DL CREATININE (test code = 2214) 0.59 MG/DL eGFR AMER. (test code 138 ML/MIN/1.73 = 03980) eGFR NON- AMER. (test 119 ML/MIN/1.73 code = 20799) CALC BUN/CREAT (test code = 15 RATIO [...] code = 2219) 35 U/L CBC W/AUTO [id number] 00:00:00 Test Item Value Reference Range Interpretation [...] code = 1015) 283 K/UL CBC W/AUTO [id number] 00:00:00 Test Item Value Reference Range Interpretation [...] code = 1015) 283 K/UL COMPREHENSIVE METABOLIC [id number] 00:00:00 Test Item Value Reference Range Interpretation Comments GLUCOSE (test code = 2217) 101 MG/DL BUN (test code = 2208) 9 MG/DL CREATININE (test code = 2214) 0.59 MG/DL eGFR AMER. (test code 138 ML/MIN/1.73 = 66760) eGFR NON- AMER. (test 119 ML/MIN/1.73 code = 04557) CALC BUN/CREAT (test code = 15 RATIO [...] code = 2219) 35 U/L COMPREHENSIVE METABOLIC [id number] 00:00:00 Test Item Value Reference Range Interpretation Comments GLUCOSE (test code = 2217) 101 MG/DL BUN (test code = 2208) 9 MG/DL CREATININE (test code = 2214) 0.59 MG/DL eGFR AMER. (test code 138 ML/MIN/1.73 = 79286) eGFR NON- AMER. (test 119 ML/MIN/1.73 code = 65449) CALC BUN/CREAT (test code = 15 RATIO [...] code = 2219) 35 U/L ACUTE HEPATITIS [id number] 00:00:00 Test Item Value Reference Range Interpretation Comments HEPATITIS A IgM (test code = NON-REACTIVE 27824) HEPATITIS B CORE IgM (test code NON-REACTIVE = 4644) HEPATITIS B SURF AG (test code = NON-REACTIVE 2739) HEPATITIS C ANTIBODY (test code NON-REACTIVE = 4675) INTERPRETATION HEPATITIS A: (NOTE) (test code = 2552) INTERPRETATION HEPATITIS B: (NOTE) (test code = 70100) INTERPRETATION HEPATITIS C: (NOTE) (test code = 45941) ACUTE HEPATITIS [id number] 00:00:00 Test Item Value Reference Range Interpretation Comments HEPATITIS A IgM (test code = NON-REACTIVE 73399) HEPATITIS B CORE IgM (test code NON-REACTIVE = 4644) HEPATITIS B SURF AG (test code = NON-REACTIVE 2739) HEPATITIS C ANTIBODY (test code NON-REACTIVE = 4675) INTERPRETATION HEPATITIS A: (NOTE) (test code = 2552) INTERPRETATION HEPATITIS B: (NOTE) (test code = 06608) INTERPRETATION HEPATITIS C: (NOTE) (test code = 19523) ACUTE HEPATITIS [id number] 00:00:00 Test Item Value Reference Range Interpretation Comments HEPATITIS A IgM (test code = NON-REACTIVE 13066) HEPATITIS B CORE IgM (test code NON-REACTIVE = 4644) HEPATITIS B SURF AG (test code = NON-REACTIVE 3649) HEPATITIS C ANTIBODY (test code NON-REACTIVE = 4675) INTERPRETATION HEPATITIS A: (NOTE) (test code = 2552) INTERPRETATION HEPATITIS B: (NOTE) (test code = 42234) INTERPRETATION HEPATITIS C: (NOTE) (test code = 80922) CBC W/AUTO [id number] 00:00:00 Test Item Value Reference Range Interpretation [...] code = 1015) 283 K/UL CBC W/AUTO [id number] 00:00:00 Test Item Value Reference Range Interpretation [...] code = 1015) 283 K/UL CBC W/AUTO [id number] 00:00:00 Test Item Value Reference Range Interpretation [...] code = 1015) 283 K/UL COMPREHENSIVE METABOLIC [id number] 00:00:00 Test Item Value Reference Range Interpretation Comments GLUCOSE (test code = 2217) 101 MG/DL BUN (test code = 2208) 9 MG/DL CREATININE (test code = 2214) 0.59 MG/DL eGFR AMER. (test code 138 ML/MIN/1.73 = 96163) eGFR NON- AMER. (test 119 ML/MIN/1.73 code = 25036) CALC BUN/CREAT (test code = 15 RATIO [...] code = 2219) 35 U/L COMPREHENSIVE METABOLIC [id number] 00:00:00 Test Item Value Reference Range Interpretation Comments GLUCOSE (test code = 2217) 101 MG/DL BUN (test code = 2208) 9 MG/DL CREATININE (test code = 2214) 0.59 MG/DL eGFR AMER. (test code 138 ML/MIN/1.73 = 92082) eGFR NON- AMER. (test 119 ML/MIN/1.73 code = 59088) CALC BUN/CREAT (test code = 15 RATIO [...] code = 2219) 35 U/L ACUTE HEPATITIS [id number] 00:00:00 Test Item Value Reference Range Interpretation Comments HEPATITIS A IgM (test code = NON-REACTIVE 79563) HEPATITIS B CORE IgM (test code NON-REACTIVE = 4644) HEPATITIS B SURF AG (test code = NON-REACTIVE 2739) HEPATITIS C ANTIBODY (test code NON-REACTIVE = 4675) INTERPRETATION HEPATITIS A: (NOTE) (test code = 2552) INTERPRETATION HEPATITIS B: (NOTE) (test code = 06654) INTERPRETATION HEPATITIS C: (NOTE) (test code = 91889) ACUTE HEPATITIS [id number] 00:00:00 Test Item Value Reference Range Interpretation Comments HEPATITIS A IgM (test code = NON-REACTIVE 18992) HEPATITIS B CORE IgM (test code NON-REACTIVE = 4644) HEPATITIS B SURF AG (test code = NON-REACTIVE 2739) HEPATITIS C ANTIBODY (test code NON-REACTIVE = 4675) INTERPRETATION HEPATITIS A: (NOTE) (test code = 2552) INTERPRETATION HEPATITIS B: (NOTE) (test code = 09329) INTERPRETATION HEPATITIS C: (NOTE) (test code = 96861) CBC W/AUTO [id number] 00:00:00 Test Item Value Reference Range Interpretation [...] code = 1015) 283 K/UL CBC W/AUTO [id number] 00:00:00 Test Item Value Reference Range Interpretation [...] code = 1015) 283 K/UL CBC W/AUTO [id number] 00:00:00 Test Item Value Reference Range Interpretation [...] code = 1015) 283 K/UL COMPREHENSIVE METABOLIC [id number] 00:00:00 Test Item Value Reference Range Interpretation Comments GLUCOSE (test code = 2217) 101 MG/DL BUN (test code = 2208) 9 MG/DL CREATININE (test code = 2214) 0.59 MG/DL eGFR AMER. (test code 138 ML/MIN/1.73 = 40310) eGFR NON- AMER. (test 119 ML/MIN/1.73 code = 14460) CALC BUN/CREAT (test code = 15 RATIO [...] BILIRUBIN, TOTAL (test code = 0.3 MG/DL 220) ALKALINE PHOSPHATASE (test 79 U/L code = 2204) AST (test code = 2218) 32 U/L ALT (test code = 2219) 35 U/L COMPREHENSIVE METABOLIC [id number] 00:00:00 Test Item Value Reference Range Interpretation Comments GLUCOSE (test code = 2217) 101 MG/DL BUN (test code = 2208) 9 MG/DL CREATININE (test code = 2214) 0.59 MG/DL eGFR AMER. (test code 138 ML/MIN/1.73 = 11356) eGFR NON- AMER. (test 119 ML/MIN/1.73 code = 25997) CALC BUN/CREAT (test code = 15 RATIO [...] code = 2219) 35 U/L ACUTE HEPATITIS [id number] 00:00:00 Test Item Value Reference Range Interpretation Comments HEPATITIS A IgM (test code = NON-REACTIVE 38860) HEPATITIS B CORE IgM (test code NON-REACTIVE = 4644) HEPATITIS B SURF AG (test code = NON-REACTIVE 2739) HEPATITIS C ANTIBODY (test code NON-REACTIVE = 4675) INTERPRETATION HEPATITIS A: (NOTE) (test code = 2552) INTERPRETATION HEPATITIS B: (NOTE) (test code = 22408) INTERPRETATION HEPATITIS C: (NOTE) (test code = 60969) ACUTE HEPATITIS [id number] 00:00:00 Test Item Value Reference Range Interpretation Comments HEPATITIS A IgM (test code = NON-REACTIVE 33474) HEPATITIS B CORE IgM (test code NON-REACTIVE = 4644) HEPATITIS B SURF AG (test code = NON-REACTIVE 2739) HEPATITIS C ANTIBODY (test code NON-REACTIVE = 4675) INTERPRETATION HEPATITIS A: (NOTE) (test code = 2552) INTERPRETATION HEPATITIS B: (NOTE) (test code = 57750) INTERPRETATION HEPATITIS C: (NOTE) (test code = 51035) CBC W/AUTO [id number] 00:00:00 Test Item Value Reference Range Interpretation [...] code = 1015) 283 K/UL CBC W/AUTO [id number] 00:00:00 Test Item Value Reference Range Interpretation [...] code = 1015) 283 K/UL CBC W/AUTO [id number] 00:00:00 Test Item Value Reference Range Interpretation [...] code = 1015) 283 K/UL COMPREHENSIVE METABOLIC [id number] 00:00:00 Test Item Value Reference Range Interpretation Comments GLUCOSE (test code = 2217) 101 MG/DL BUN (test code = 2208) 9 MG/DL CREATININE (test code = 2214) 0.59 MG/DL eGFR AMER. (test code 138 ML/MIN/1.73 = 60442) eGFR NON- AMER. (test 119 ML/MIN/1.73 code = 93038) CALC BUN/CREAT (test code = 15 RATIO [...] 0) CALC A/G RATIO (test code = 1.3 RATIO 4) BILIRUBIN, TOTAL (test code = 0.3 MG/DL 2206) ALKALINE PHOSPHATASE (test 79 U/L code = 2204) AST (test code = 2218) 32 U/L ALT (test code = 2219) 35 U/L COMPREHENSIVE METABOLIC [id number] 00:00:00 Test Item Value Reference Range Interpretation Comments GLUCOSE (test code = 2217) 101 MG/DL BUN (test code = 2208) 9 MG/DL CREATININE (test code = 2214) 0.59 MG/DL eGFR AMER. (test code 138 ML/MIN/1.73 = 30466) eGFR NON- AMER. (test 119 ML/MIN/1.73 code = 67614) CALC BUN/CREAT (test code = 15 RATIO [...] code = 2219) 35 U/L ACUTE HEPATITIS [id number] 00:00:00 Test Item Value Reference Range Interpretation Comments HEPATITIS A IgM (test code = NON-REACTIVE 88271) HEPATITIS B CORE IgM (test code NON-REACTIVE = 4644) HEPATITIS B SURF AG (test code = NON-REACTIVE 2739) HEPATITIS C ANTIBODY (test code NON-REACTIVE = 4675) INTERPRETATION HEPATITIS A: (NOTE) (test code = 2552) INTERPRETATION HEPATITIS B: (NOTE) (test code = 68579) INTERPRETATION HEPATITIS C: (NOTE) (test code = 76784) ACUTE HEPATITIS [id number] 00:00:00 Test Item Value Reference Range Interpretation Comments HEPATITIS A IgM (test code = NON-REACTIVE 37300) HEPATITIS B CORE IgM (test code NON-REACTIVE = 4644) HEPATITIS B SURF AG (test code = NON-REACTIVE 2739) HEPATITIS C ANTIBODY (test code NON-REACTIVE = 4675) INTERPRETATION HEPATITIS A: (NOTE) (test code = 2552) INTERPRETATION HEPATITIS B: (NOTE) (test code = 39572) INTERPRETATION HEPATITIS C: (NOTE) (test code = 08346) CBC W/AUTO [id number] 00:00:00 Test Item Value Reference Range Interpretation [...] code = 1015) 283 K/UL CBC W/AUTO [id number] 00:00:00 Test Item Value Reference Range Interpretation [...] code = 1015) 283 K/UL CBC W/AUTO [id number] 00:00:00 Test Item Value Reference Range Interpretation [...] code = 1015) 283 K/UL COMPREHENSIVE METABOLIC [id number] 00:00:00 Test Item Value Reference Range Interpretation Comments GLUCOSE (test code = 2217) 101 MG/DL BUN (test code = 2208) 9 MG/DL CREATININE (test code = 2214) 0.59 MG/DL eGFR AMER. (test code 138 ML/MIN/1.73 = 38978) eGFR NON- AMER. (test 119 ML/MIN/1.73 code = 98294) CALC BUN/CREAT (test code = 15 RATIO [...] code = 2219) 35 U/L COMPREHENSIVE METABOLIC [id number] 00:00:00 Test Item Value Reference Range Interpretation Comments GLUCOSE (test code = 2217) 101 MG/DL BUN (test code = 2208) 9 MG/DL CREATININE (test code = 2214) 0.59 MG/DL eGFR AMER. (test code 138 ML/MIN/1.73 = 55324) eGFR NON- AMER. (test 119 ML/MIN/1.73 code = 32685) CALC BUN/CREAT (test code = 15 RATIO [...] code = 2219) 35 U/L ACUTE HEPATITIS [id number] 00:00:00 Test Item Value Reference Range Interpretation Comments HEPATITIS A IgM (test code = NON-REACTIVE 64693) HEPATITIS B CORE IgM (test code NON-REACTIVE = 4644) HEPATITIS B SURF AG (test code = NON-REACTIVE 2739) HEPATITIS C ANTIBODY (test code NON-REACTIVE = 4675) INTERPRETATION HEPATITIS A: (NOTE) (test code = 2552) INTERPRETATION HEPATITIS B: (NOTE) (test code = 24580) INTERPRETATION HEPATITIS C: (NOTE) (test code = 57032) ACUTE HEPATITIS [id number] 00:00:00 Test Item Value Reference Range Interpretation Comments HEPATITIS A IgM (test code = NON-REACTIVE 76628) HEPATITIS B CORE IgM (test code NON-REACTIVE = 4644) HEPATITIS B SURF AG (test code = NON-REACTIVE 2739) HEPATITIS C ANTIBODY (test code NON-REACTIVE = 4675) INTERPRETATION HEPATITIS A: (NOTE) (test code = 2552) INTERPRETATION HEPATITIS B: (NOTE) (test code = 01365) INTERPRETATION HEPATITIS C: (NOTE) (test code = 34810) COMPREHENSIVE METABOLIC [id number] 00:00:00 Test Item Value Reference Range Interpretation Comments GLUCOSE (test code = 2217) 88 MG/DL BUN (test code = 2208) 9 MG/DL CREATININE (test code = 2214) 0.71 MG/DL eGFR AMER. (test code 131 ML/MIN/1.73 = 11318) eGFR NON- AMER. (test 113 ML/MIN/1.73 code = 42991) CALC BUN/CREAT (test code = 13 RATIO [...] (test code = 2219) 45 U/L LIPID [id number] 00:00:00 Test Item Value Reference Range Interpretation Comments CHOLESTEROL (test code = 2210) 166 MG/DL TRIGLYCERIDES (test code = 2232) 85 MG/DL HDL CHOLESTEROL (test code = 2220) 61 MG/DL CALC LDL CHOL (test code = 2237) 88 MG/DL RISK RATIO LDL/HDL (test code = 1.44 RATIO 2238) CBC W/AUTO [id number] 00:00:00 Test Item Value Reference Range Interpretation [...] code = 1015) 278 K/UL CBC W/AUTO [id number] 00:00:00 Test Item Value Reference Range Interpretation [...] (test code = 1015) 278 K/UL HEMOGLOBIN [id number] 00:00:00 Test Item Value Reference Range Interpretation Comments HEMOGLOBIN A1c (test code = 40488) 5.4 % HEMOGLOBIN [id number] 00:00:00 Test Item Value Reference Range Interpretation Comments HEMOGLOBIN A1c (test code = 49692) 5.4 % [id number] 00:00:00 Test Item Value Reference Range Interpretation Comments TSH (test code = 2821) 2.1 UIU/ML [id number] 00:00:00 Test Item Value Reference Range Interpretation Comments TSH (test code = 2821) 2.1 UIU/ML COMPREHENSIVE METABOLIC [id number] 00:00:00 Test Item Value Reference Range Interpretation Comments GLUCOSE (test code = 2217) 88 MG/DL BUN (test code = 2208) 9 MG/DL CREATININE (test code = 2214) 0.71 MG/DL eGFR AMER. (test code 131 ML/MIN/1.73 = 94634) eGFR NON- AMER. (test 113 ML/MIN/1.73 code = 92135) CALC BUN/CREAT (test code = 13 RATIO [...] code = 2219) 45 U/L COMPREHENSIVE METABOLIC [id number] 00:00:00 Test Item Value Reference Range Interpretation Comments GLUCOSE (test code = 2217) 88 MG/DL BUN (test code = 2208) 9 MG/DL CREATININE (test code = 2214) 0.71 MG/DL eGFR AMER. (test code 131 ML/MIN/1.73 = 33927) eGFR NON- AMER. (test 113 ML/MIN/1.73 code = 36001) CALC BUN/CREAT (test code = 13 RATIO [...] (test code = 2219) 45 U/L LIPID [id number] 00:00:00 Test Item Value Reference Range Interpretation Comments CHOLESTEROL (test code = 2210) 166 MG/DL TRIGLYCERIDES (test code = 2232) 85 MG/DL HDL CHOLESTEROL (test code = 2220) 61 MG/DL CALC LDL CHOL (test code = 2237) 88 MG/DL RISK RATIO LDL/HDL (test code = 1.44 RATIO 2238) LIPID [id number] 00:00:00 Test Item Value Reference Range Interpretation Comments CHOLESTEROL (test code = 2210) 166 MG/DL TRIGLYCERIDES (test code = 2232) 85 MG/DL HDL CHOLESTEROL (test code = 2220) 61 MG/DL CALC LDL CHOL (test code = 2237) 88 MG/DL RISK RATIO LDL/HDL (test code = 1.44 RATIO 2238) CBC W/AUTO [id number] 00:00:00 Test Item Value Reference Range Interpretation [...] code = 1015) 278 K/UL CBC W/AUTO [id number] 00:00:00 Test Item Value Reference Range Interpretation [...] code = 1015) 278 K/UL CBC W/AUTO [id number] 00:00:00 Test Item Value Reference Range Interpretation [...] (test code = 1015) 278 K/UL HEMOGLOBIN [id number] 00:00:00 Test Item Value Reference Range Interpretation Comments HEMOGLOBIN A1c (test code = 01309) 5.4 % HEMOGLOBIN [id number] 00:00:00 Test Item Value Reference Range Interpretation Comments HEMOGLOBIN A1c (test code = 30351) 5.4 % HEMOGLOBIN [id number] 00:00:00 Test Item Value Reference Range Interpretation Comments HEMOGLOBIN A1c (test code = 52347) 5.4 % [id number] 00:00:00 Test Item Value Reference Range Interpretation Comments TSH (test code = 2821) 2.1 UIU/ML [id number] 00:00:00 Test Item Value Reference Range Interpretation Comments TSH (test code = 2821) 2.1 UIU/ML [id number] 00:00:00 Test Item Value Reference Range Interpretation Comments TSH (test code = 2821) 2.1 UIU/ML COMPREHENSIVE METABOLIC [id number] 00:00:00 Test Item Value Reference Range Interpretation Comments GLUCOSE (test code = 2217) 88 MG/DL BUN (test code = 2208) 9 MG/DL CREATININE (test code = 2214) 0.71 MG/DL eGFR AMER. (test code 131 ML/MIN/1.73 = 37248) eGFR NON- AMER. (test 113 ML/MIN/1.73 code = 78146) CALC BUN/CREAT (test code = 13 RATIO [...] BILIRUBIN, TOTAL (test code = 0.4 MG/DL 7) ALKALINE PHOSPHATASE (test 79 U/L code = 2204) AST (test code = 2218) 36 U/L ALT (test code = 2219) 45 U/L COMPREHENSIVE METABOLIC [id number] 00:00:00 Test Item Value Reference Range Interpretation Comments GLUCOSE (test code = 2217) 88 MG/DL BUN (test code = 2208) 9 MG/DL CREATININE (test code = 2214) 0.71 MG/DL eGFR AMER. (test code 131 ML/MIN/1.73 = 88754) eGFR NON- AMER. (test 113 ML/MIN/1.73 code = 69955) CALC BUN/CREAT (test code = 13 RATIO [...] code = 2219) 45 U/L COMPREHENSIVE METABOLIC [id number] 00:00:00 Test Item Value Reference Range Interpretation Comments GLUCOSE (test code = 2217) 88 MG/DL BUN (test code = 2208) 9 MG/DL CREATININE (test code = 2214) 0.71 MG/DL eGFR AMER. (test code 131 ML/MIN/1.73 = 45619) eGFR NON- AMER. (test 113 ML/MIN/1.73 code = 58487) CALC BUN/CREAT (test code = 13 RATIO [...] (test code = 2219) 45 U/L LIPID [id number] 00:00:00 Test Item Value Reference Range Interpretation Comments CHOLESTEROL (test code = 2210) 166 MG/DL TRIGLYCERIDES (test code = 2232) 85 MG/DL HDL CHOLESTEROL (test code = 2220) 61 MG/DL CALC LDL CHOL (test code = 2237) 88 MG/DL RISK RATIO LDL/HDL (test code = 1.44 RATIO 2238) LIPID [id number] 00:00:00 Test Item Value Reference Range Interpretation Comments CHOLESTEROL (test code = 2210) 166 MG/DL TRIGLYCERIDES (test code = 2232) 85 MG/DL HDL CHOLESTEROL (test code = 2220) 61 MG/DL CALC LDL CHOL (test code = 2237) 88 MG/DL RISK RATIO LDL/HDL (test code = 1.44 RATIO 2238) LIPID [id number] 00:00:00 Test Item Value Reference Range Interpretation Comments CHOLESTEROL (test code = 2210) 166 MG/DL TRIGLYCERIDES (test code = 2232) 85 MG/DL HDL CHOLESTEROL (test code = 2220) 61 MG/DL CALC LDL CHOL (test code = 2237) 88 MG/DL RISK RATIO LDL/HDL (test code = 1.44 RATIO 2238) CBC W/AUTO [id number] 00:00:00 Test Item Value Reference Range Interpretation [...] code = 1015) 278 K/UL CBC W/AUTO [id number] 00:00:00 Test Item Value Reference Range Interpretation [...] code = 1015) 278 K/UL CBC W/AUTO [id number] 00:00:00 Test Item Value Reference Range Interpretation [...] (test code = 1015) 278 K/UL HEMOGLOBIN [id number] 00:00:00 Test Item Value Reference Range Interpretation Comments HEMOGLOBIN A1c (test code = 84820) 5.4 % HEMOGLOBIN [id number] 00:00:00 Test Item Value Reference Range Interpretation Comments HEMOGLOBIN A1c (test code = 70998) 5.4 % HEMOGLOBIN [id number] 00:00:00 Test Item Value Reference Range Interpretation Comments HEMOGLOBIN A1c (test code = 76328) 5.4 % [id number] 00:00:00 Test Item Value Reference Range Interpretation Comments TSH (test code = 2821) 2.1 UIU/ML [id number] 00:00:00 Test Item Value Reference Range Interpretation Comments TSH (test code = 2821) 2.1 UIU/ML [id number] 00:00:00 Test Item Value Reference Range Interpretation Comments TSH (test code = 2821) 2.1 UIU/ML CBC W/AUTO [id number] 00:00:00 Test Item Value Reference Range Interpretation [...] code = 1015) 278 K/UL CBC W/AUTO [id number] 00:00:00 Test Item Value Reference Range Interpretation [...] (test code = 1015) 278 K/UL HEMOGLOBIN [id number] 00:00:00 Test Item Value Reference Range Interpretation Comments HEMOGLOBIN A1c (test code = 96927) 5.4 % COMPREHENSIVE METABOLIC [id number] 00:00:00 Test Item Value Reference Range Interpretation Comments GLUCOSE (test code = 2217) 88 MG/DL BUN (test code = 2208) 9 MG/DL CREATININE (test code = 2214) 0.71 MG/DL eGFR AMER. (test code 131 ML/MIN/1.73 = 68787) eGFR NON- AMER. (test 113 ML/MIN/1.73 code = 68161) CALC BUN/CREAT (test code = 13 RATIO 2235) SODIUM (test code = 2231) 144 MEQ/L POTASSIUM (test code = 2228) 4.3 MEQ/L CHLORIDE (test code = 2215) 103 MEQ/L CARBON DIOXIDE (test code = 27 MEQ/L 6) CALCIUM (test code = 2209) 9.7 MG/DL [...] (test code = 2219) 45 U/L HEMOGLOBIN [id number] 00:00:00 Test Item Value Reference Range Interpretation Comments HEMOGLOBIN A1c (test code = 75440) 5.4 % COMPREHENSIVE METABOLIC [id number] 00:00:00 Test Item Value Reference Range Interpretation Comments GLUCOSE (test code = 2217) 88 MG/DL BUN (test code = 2208) 9 MG/DL CREATININE (test code = 2214) 0.71 MG/DL eGFR AMER. (test code 131 ML/MIN/1.73 = 01581) eGFR NON- AMER. (test 113 ML/MIN/1.73 code = 39106) CALC BUN/CREAT (test code = 13 RATIO [...] ALT (test code = 2219) 45 U/L [id number] 00:00:00 Test Item Value Reference Range Interpretation Comments TSH (test code = 2821) 2.1 UIU/ML LIPID [id number] 00:00:00 Test Item Value Reference Range Interpretation Comments CHOLESTEROL (test code = 2210) 166 MG/DL TRIGLYCERIDES (test code = 2232) 85 MG/DL HDL CHOLESTEROL (test code = 2220) 61 MG/DL CALC LDL CHOL (test code = 2237) 88 MG/DL RISK RATIO LDL/HDL (test code = 1.44 RATIO 2238) LIPID [id number] 00:00:00 Test Item Value Reference Range Interpretation Comments CHOLESTEROL (test code = 2210) 166 MG/DL TRIGLYCERIDES (test code = 2232) 85 MG/DL HDL CHOLESTEROL (test code = 2220) 61 MG/DL CALC LDL CHOL (test code = 2237) 88 MG/DL RISK RATIO LDL/HDL (test code = 1.44 RATIO 2238) [id number] 00:00:00 Test Item Value Reference Range Interpretation Comments TSH (test code = 2821) 2.1 UIU/ML CBC W/AUTO [id number] 00:00:00 Test Item Value Reference Range Interpretation [...] code = 1015) 278 K/UL CBC W/AUTO [id number] 00:00:00 Test Item Value Reference Range Interpretation [...] code = 1015) 278 K/UL CBC W/AUTO [id number] 00:00:00 Test Item Value Reference Range Interpretation [...] (test code = 1015) 278 K/UL HEMOGLOBIN [id number] 00:00:00 Test Item Value Reference Range Interpretation Comments HEMOGLOBIN A1c (test code = 19938) 5.4 % HEMOGLOBIN [id number] 00:00:00 Test Item Value Reference Range Interpretation Comments HEMOGLOBIN A1c (test code = 56878) 5.4 % HEMOGLOBIN [id number] 00:00:00 Test Item Value Reference Range Interpretation Comments HEMOGLOBIN A1c (test code = 03904) 5.4 % [id number] 00:00:00 Test Item Value Reference Range Interpretation Comments TSH (test code = 2821) 2.1 UIU/ML [id number] 00:00:00 Test Item Value Reference Range Interpretation Comments TSH (test code = 2821) 2.1 UIU/ML [id number] 00:00:00 Test Item Value Reference Range Interpretation Comments TSH (test code = 2821) 2.1 UIU/ML COMPREHENSIVE METABOLIC [id number] 00:00:00 Test Item Value Reference Range Interpretation Comments GLUCOSE (test code = 2217) 88 MG/DL BUN (test code = 2208) 9 MG/DL CREATININE (test code = 2214) 0.71 MG/DL eGFR AMER. (test code 131 ML/MIN/1.73 = 41602) eGFR NON- AMER. (test 113 ML/MIN/1.73 code = 66597) CALC BUN/CREAT (test code = 13 RATIO [...] BILIRUBIN, TOTAL (test code = 0.4 MG/DL 220) ALKALINE PHOSPHATASE (test 79 U/L code = 2204) AST (test code = 2218) 36 U/L ALT (test code = 2219) 45 U/L COMPREHENSIVE METABOLIC [id number] 00:00:00 Test Item Value Reference Range Interpretation Comments GLUCOSE (test code = 2217) 88 MG/DL BUN (test code = 2208) 9 MG/DL CREATININE (test code = 2214) 0.71 MG/DL eGFR AMER. (test code 131 ML/MIN/1.73 = 06714) eGFR NON- AMER. (test 113 ML/MIN/1.73 code = 32006) CALC BUN/CREAT (test code = 13 RATIO [...] (test code = 2219) 45 U/L LIPID [id number] 00:00:00 Test Item Value Reference Range Interpretation Comments CHOLESTEROL (test code = 2210) 166 MG/DL TRIGLYCERIDES (test code = 2232) 85 MG/DL HDL CHOLESTEROL (test code = 2220) 61 MG/DL CALC LDL CHOL (test code = 2237) 88 MG/DL RISK RATIO LDL/HDL (test code = 1.44 RATIO 2238) LIPID [id number] 00:00:00 Test Item Value Reference Range Interpretation Comments CHOLESTEROL (test code = 2210) 166 MG/DL TRIGLYCERIDES (test code = 2232) 85 MG/DL HDL CHOLESTEROL (test code = 2220) 61 MG/DL CALC LDL CHOL (test code = 2237) 88 MG/DL RISK RATIO LDL/HDL (test code = 1.44 RATIO 2238) CBC W/AUTO [id number] 00:00:00 Test Item Value Reference Range Interpretation [...] code = 1015) 278 K/UL CBC W/AUTO [id number] 00:00:00 Test Item Value Reference Range Interpretation [...] code = 1015) 278 K/UL CBC W/AUTO [id number] 00:00:00 Test Item Value Reference Range Interpretation [...] (test code = 1015) 278 K/UL HEMOGLOBIN [id number] 00:00:00 Test Item Value Reference Range Interpretation Comments HEMOGLOBIN A1c (test code = 56281) 5.4 % HEMOGLOBIN [id number] 00:00:00 Test Item Value Reference Range Interpretation Comments HEMOGLOBIN A1c (test code = 18678) 5.4 % HEMOGLOBIN [id number] 00:00:00 Test Item Value Reference Range Interpretation Comments HEMOGLOBIN A1c (test code = 77404) 5.4 % [id number] 00:00:00 Test Item Value Reference Range Interpretation Comments TSH (test code = 2821) 2.1 UIU/ML [id number] 00:00:00 Test Item Value Reference Range Interpretation Comments TSH (test code = 2821) 2.1 UIU/ML [id number] 00:00:00 Test Item Value Reference Range Interpretation Comments TSH (test code = 2821) 2.1 UIU/ML COMPREHENSIVE METABOLIC [id number] 00:00:00 Test Item Value Reference Range Interpretation Comments GLUCOSE (test code = 2217) 88 MG/DL BUN (test code = 2208) 9 MG/DL CREATININE (test code = 2214) 0.71 MG/DL eGFR AMER. (test code 131 ML/MIN/1.73 = 26955) eGFR NON- AMER. (test 113 ML/MIN/1.73 code = 09595) CALC BUN/CREAT (test code = 13 RATIO [...] code = 2219) 45 U/L COMPREHENSIVE METABOLIC [id number] 00:00:00 Test Item Value Reference Range Interpretation Comments GLUCOSE (test code = 2217) 88 MG/DL BUN (test code = 2208) 9 MG/DL CREATININE (test code = 2214) 0.71 MG/DL eGFR AMER. (test code 131 ML/MIN/1.73 = 19796) eGFR NON- AMER. (test 113 ML/MIN/1.73 code = 78437) CALC BUN/CREAT (test code = 13 RATIO [...] (test code = 2219) 45 U/L LIPID [id number] 00:00:00 Test Item Value Reference Range Interpretation Comments CHOLESTEROL (test code = 2210) 166 MG/DL TRIGLYCERIDES (test code = 2232) 85 MG/DL HDL CHOLESTEROL (test code = 2220) 61 MG/DL CALC LDL CHOL (test code = 2237) 88 MG/DL RISK RATIO LDL/HDL (test code = 1.44 RATIO 2238) LIPID [id number] 00:00:00 Test Item Value Reference Range Interpretation Comments CHOLESTEROL (test code = 2210) 166 MG/DL TRIGLYCERIDES (test code = 2232) 85 MG/DL HDL CHOLESTEROL (test code = 2220) 61 MG/DL CALC LDL CHOL (test code = 2237) 88 MG/DL RISK RATIO LDL/HDL (test code = 1.44 RATIO 2238) CBC W/AUTO [id number] 00:00:00 Test Item Value Reference Range Interpretation [...] code = 1015) 278 K/UL CBC W/AUTO [id number] 00:00:00 Test Item Value Reference Range Interpretation [...] code = 1015) 278 K/UL CBC W/AUTO [id number] 00:00:00 Test Item Value Reference Range Interpretation [...] (test code = 1015) 278 K/UL HEMOGLOBIN [id number] 00:00:00 Test Item Value Reference Range Interpretation Comments HEMOGLOBIN A1c (test code = 87292) 5.4 % HEMOGLOBIN [id number] 00:00:00 Test Item Value Reference Range Interpretation Comments HEMOGLOBIN A1c (test code = 77697) 5.4 % HEMOGLOBIN [id number] 00:00:00 Test Item Value Reference Range Interpretation Comments HEMOGLOBIN A1c (test code = 01101) 5.4 % [id number] 00:00:00 Test Item Value Reference Range Interpretation Comments TSH (test code = 2821) 2.1 UIU/ML [id number] 00:00:00 Test Item Value Reference Range Interpretation Comments TSH (test code = 2821) 2.1 UIU/ML [id number] 00:00:00 Test Item Value Reference Range Interpretation Comments TSH (test code = 2821) 2.1 UIU/ML COMPREHENSIVE METABOLIC [id number] 00:00:00 Test Item Value Reference Range Interpretation Comments GLUCOSE (test code = 2217) 88 MG/DL BUN (test code = 2208) 9 MG/DL CREATININE (test code = 2214) 0.71 MG/DL eGFR AMER. (test code 131 ML/MIN/1.73 = 62634) eGFR NON- AMER. (test 113 ML/MIN/1.73 code = 69374) CALC BUN/CREAT (test code = 13 RATIO [...] = 220) AST (test code = 2218) 36 U/L ALT (test code = 2219) 45 U/L COMPREHENSIVE METABOLIC [id number] 00:00:00 Test Item Value Reference Range Interpretation Comments GLUCOSE (test code = 2217) 88 MG/DL BUN (test code = 2208) 9 MG/DL CREATININE (test code = 2214) 0.71 MG/DL eGFR AMER. (test code 131 ML/MIN/1.73 = 68998) eGFR NON- AMER. (test 113 ML/MIN/1.73 code = 71082) CALC BUN/CREAT (test code = 13 RATIO [...] (test code = 2219) 45 U/L LIPID [id number] 00:00:00 Test Item Value Reference Range Interpretation Comments CHOLESTEROL (test code = 2210) 166 MG/DL TRIGLYCERIDES (test code = 2232) 85 MG/DL HDL CHOLESTEROL (test code = 2220) 61 MG/DL CALC LDL CHOL (test code = 2237) 88 MG/DL RISK RATIO LDL/HDL (test code = 1.44 RATIO 2238) LIPID [id number] 00:00:00 Test Item Value Reference Range Interpretation Comments CHOLESTEROL (test code = 2210) 166 MG/DL TRIGLYCERIDES (test code = 2232) 85 MG/DL HDL CHOLESTEROL (test code = 2220) 61 MG/DL CALC LDL CHOL (test code = 2237) 88 MG/DL RISK RATIO LDL/HDL (test code = 1.44 RATIO 2238) CBC W/AUTO [id number] 00:00:00 Test Item Value Reference Range Interpretation [...] code = 1015) 278 K/UL CBC W/AUTO [id number] 00:00:00 Test Item Value Reference Range Interpretation [...] code = 1015) 278 K/UL CBC W/AUTO [id number] 00:00:00 Test Item Value Reference Range Interpretation [...] (test code = 1015) 278 K/UL HEMOGLOBIN [id number] 00:00:00 Test Item Value Reference Range Interpretation Comments HEMOGLOBIN A1c (test code = 86325) 5.4 % HEMOGLOBIN [id number] 00:00:00 Test Item Value Reference Range Interpretation Comments HEMOGLOBIN A1c (test code = 18089) 5.4 % HEMOGLOBIN [id number] 00:00:00 Test Item Value Reference Range Interpretation Comments HEMOGLOBIN A1c (test code = 24209) 5.4 % [id number] 00:00:00 Test Item Value Reference Range Interpretation Comments TSH (test code = 2821) 2.1 UIU/ML [id number] 00:00:00 Test Item Value Reference Range Interpretation Comments TSH (test code = 2821) 2.1 UIU/ML [id number] 00:00:00 Test Item Value Reference Range Interpretation Comments TSH (test code = 2821) 2.1 UIU/ML
[2023-01-18] MEDS ORDERED: ACETAMINOPHEN 500 MG TAB ONE (14:03)
[2023-01-18] MEDS ORDERED: LEVALBUTEROL 1.25 MG/3 ML NEB ONE (14:04)
[2023-01-18] MEDS ORDERED: NA CHLORIDE 0.9% 500 ML ONE ×3 (14:04→19:27)
--- NOTE | 2023-01-18 14:44 | RAD REPORT ---
EXAM DESCRIPTION: [place] Single View01/18/2023 1:53 pm CLINICAL HISTORY: Cough;Fever;Dyspnea COMPARISON: Chest Single View dated 08/31/2021; Chest Single View dated 05/28/2021 TECHNIQUE: Portable AP view of the chest. FINDINGS: The lungs show no focal consolidation. Streaky perihilar opacities may relate to central v enous congestion or interstitial prominence. Decreased inspiratory effort limits evaluation. No pneu mothorax or effusion. The cardiomediastinal contours are unremarkable. IMPRESSION: Streaky parahilar opacities may relate to central venous congestion or early edema. Dec reased inspiratory effort limits evaluation.
[2023-01-18 14:51] LABS: Absolute Lymphocytes (CBC) 1.1 K/uL (0.7-4.9); Hematocrit 36.3 % (36.0-45.0); Lymphocytes % 18.9 % (15.3-44.8); MCV 91.5 fL (80-100); MPV 7.9 fL (7.6-11.3); Platelets 259 thou/uL (152-406); RBC Red Blood Cell Count 3.96 M/uL (3.86-4.86)
[2023-01-18 14:56] LABS: SARS-CoV-2 Antigen Rapid Res Negative (Negative)
[2023-01-18 15:02] LABS: Protime INR 1.14
[2023-01-18 15:03] LABS: Albumin 3.2 g/dL (3.4-5.0); Bilirubin Total 0.4 mg/dL (0.2-1.0); Potassium 3.6 mEq/L (3.5-5.1); Protein, Total 8.7 g/dL (6.4-8.2)
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
[2023-01-18 16:18] LABS: Blood Gas Oxyhemoglobin 91.1 % (94-97)
[2023-01-18 16:53] LABS: Specific Gravity 1.029 (1.005-1.030)
--- NOTE | 2023-01-18 17:43 | RAD REPORT ---
EXAM DESCRIPTION: CT - Chest For Pe Angio - 01/18/2023 5:15 pm CLINICAL HISTORY: elevated d-dimer COMPARISON: Chest For Pe Angio dated 08/31/2021; Chest For Pe Angio dated 05/28/2021 TECHNIQUE: Thin axial CT images of the chest were obtained following administration of 100 mL Isovue 370 IV contrast. Multiplanar reconstructions, and maximum intensity projection reconstructions were generated and reviewed. Exam utilizes a protocol for optimal evaluation of pulmonary arterial tree. All CT scans are performed using dose optimization technique as appropriate and may include automated exposure control or mA/KV adjustment according to patient size. FINDINGS: Pulmonary arteries show no emboli or other suspicious finding. Prominent caliber of the ma in pulmonary artery exceeding that of the aorta. No acute or significant aorta findings. No mass or infiltrate in the lung parenchyma. Geographic ground-glass opacities relating to decreased inspiratory effort. No pleural thickening or pleural effusion. No pneumothorax. No abnormal mediastinal or hilar masses or lymphadenopathy seen. No chest wall mass or abnormal axill iary lymphadenopathy. Diffuse hepatic parenchymal hypoattenuation, suggestive of hepatic steatosis. IMPRESSION: No evidence of acute central pulmonary emboli. Prominent main pulmonary artery caliber, may relate to ongoing pulmonary hypertension.
[2023-01-18] MEDS ORDERED: ONDANSETRON 4 MG/2 ML VIAL IV PRN (18:21)
[2023-01-18] MEDS ORDERED: MORPHINE 2 MG/ML SYR IV PRN (18:21)
[2023-01-18] MEDS ORDERED: ACETAMINOPHEN 500 MG TAB PO PRN (18:21)
--- NOTE | 2023-01-18 18:34 | P.HP ---
Certification for Inpatient Patient admitted to: Observation With expected LOS: <2 Midnights Patient will require the following post-hospital care: None Practitioner: I am a practitioner with admitting privileges, knowledge of patient current condition, hospital course, and medical plan of care. Services: Services provided to patient in accordance with Admission requirements found in Title 42 Section 412.3 of the Code of Federal Regulations Patient History Date of Service: 01/18/23 Reason for admission: Influenza pneumonia and hypoxemia History of Present Illness: Patient is a 37-year-old female who presents to the emergency room with cough and shortness of breath. Patient symptoms started about 48 hours ago with nausea and weakness. Patient was getting more short of breath and having a lot of congestion. She says she woke up in the middle of the night and she could not really catch her breath. She feels like she stopped breathing at one time. She was tachypneic and running low-grade fever so she came into the emergency room for further evaluation. In the ER she had labs performed which did not reveal any significant infiltrates. She did have hypoxemia with O2 sats running at 85% on room air. She was started on nebs, steroids, and antivirals. Patient's work-up showed that she was positive for influenza. Patient will be started on Tamiflu. Continue with nebs and cough medication as needed. Procalcitonin level to make sure patient does not have a secondary bacterial infection. Patient will be admitted to the hospital for further evaluation. Patient has a history of psoriasis and psoriatic arthritis. She had been taking Skyrizi up until a year ago. She goes to [facility] rheumatology for her treatments. She stated that she did not have the money for her co-pay or her labs so she did not go for follow-up. Her psoriatic plaques have come back with a vengeance and the started about 4 months ago. She states that steroids make her psoriatic plaques worsen. She will follow-up as an outpatient with rheumatology or dermatology for further treatment options. This will be managed as an outpatient. Patient will be treated for influenza pneumonia at this time and will do inhaled steroids since she does not respond well to IV steroids. Allergies No Known Allergies Allergy (Unverified 10/29/11 16:16) Home Medications: Ciprofloxacin HCl [Cipro*] 500 mg PO BID #12 tab 09/15/12 Hydrocodone/Acetaminophen [Vicodin Es 7.5-300 mg Tablet] 1 each PO Q4HP PRN #0 tablet 09/15/12 Promethazine Tab [Phenergan -Tab] 25 mg PO Q6HP PRN #0 tab 09/15/12 - Past Medical/Surgical History Diabetic: No -: Psoriasis -: Psoriatic arthritis -: none - Family History Father Family History: Reviewed- Non-Contributory - Social History Smoking Status: Former smoker Alcohol use: Yes CD- Drugs: No Caffeine use: Yes Review of Systems 10-point ROS is otherwise unremarkable Physical Examination - Vital Signs Temperature: 101 F (Reviewed) - Physical Exam General: Alert, In no apparent distress, Oriented x3, Obese HEENT: Atraumatic, PERRLA, Mucous membr. moist/pink, EOMI, Sclerae nonicteric Neck: Supple, 2+ carotid pulse no bruit, No LAD, Without JVD or thyroid abnormality Respiratory: Diminished, Expiratory wheezes, Rhonchi/gurgles Cardiovascular: Regular rate/rhythm, Normal S1 S2, No murmurs Gastrointestinal: Normal bowel sounds, Soft and benign, Non-distended, No tenderness, No rebound, No guarding Musculoskeletal: No clubbing, No swelling, No tenderness Integumentary: No rashes Neurological: Normal gait, Normal speech, Normal strength at 5/5 x4 extr, Normal tone, Sensation intact, Cranial nerves 3-12 intact, Normal affect Lymphatics: No axilla or inguinal lymphadenopathy - Studies Laboratory Data (last 24 hrs) 01/18/23 01/18/23 01/18/23 14:13 14:13 14:13 WBC 5.70 Hgb 11.8 L Hct 36.3 Plt Count 259 PT 12.5 INR 1.14 APTT 30.8 Sodium 140 Potassium 3.6 BUN 9 Creatinine 0.97 Glucose 115 H Total Bilirubin 0.4 AST 36 ALT 36 Alkaline Phosphatase 72 Microbiology Data (last 24 hrs): 01/18/23 13:58 Nasopharnyx Influenza Type A Antigen Screen - Final 01/18/23 13:58 Nasopharnyx Influenza Type B Antigen Screen - Final Assessment & Plan - Problems (Diagnosis) (1) Influenzal pneumonia Current Visit: Yes Status: Acute (2) Hypoxemia Current Visit: Yes Status: Acute (3) Psoriasis Current Visit: Yes Status: Acute (4) Psoriatic arthritis Current Visit: Yes Status: Acute (5) Morbid obesity Current Visit: Yes Status: Acute - Plan Plan: 1. Continue with antiviral therapy 2. Awaiting sputum and blood culture and procalcitonin level 3. Repeat chest x-ray 4. CT scan of the chest with PE protocol 5. Pulmonary consultation 6. Continue with nebs as needed 7. O2 per protocol 8. Continue with gentle hydration 9. Repeat labs including CBC and renal function in a.m. 10. GI and DVT prophylaxis Discharge Plan: Home Plan to discharge in: 24 Hours - Advance Directives Does patient have a Living Will: No Does patient have a Durable POA for Healthcare: No - Code Status/Comfort Care Code Status Assessed: Yes Code Status: Full Code Critical Care: No Time Spent Managing PTS Care (In Minutes): 45
[2023-01-18] MEDS ORDERED: PROMETHAZINE 25 MG TABLET PO PRN (18:35)
[2023-01-18] MEDS: BUDESONIDE 0.25 MG/2 ML NEB NEB SCH (20:00)
[2023-01-18] MEDS ORDERED: OSELTAMIVIR 75 MG CAP PO ONE (21:00)
[2023-01-18] MEDS: ALBUTEROL 2.5 MG/3 ML NEB SOL NEB SCH (21:54)
[2023-01-18] MEDS: IPRATROPIUM BROM 0.5MG/2.5ML NEB SCH (21:54)
[2023-01-18] MEDS: NA CHLORIDE 0.9% 1,000 ML IV SCH (22:15)
[2023-01-18] MEDS: GUAIFENESIN/CODEINE 5ML UCUP PO PRN (22:20)
[2023-01-18] MEDS ORDERED: HYDROCODONE/APAP 7.5/325 MG TAB PO PRN (22:39)
[2023-01-18 23:48] VITALS: BMI 42.9
[2023-01-19] MEDS: IPRATROPIUM BROM 0.5MG/2.5ML NEB SCH ×4 (02:40→19:43)
[2023-01-19] MEDS: ALBUTEROL 2.5 MG/3 ML NEB SOL NEB SCH ×4 (02:40→19:43)
[2023-01-19] MEDS: BUDESONIDE 0.25 MG/2 ML NEB NEB SCH ×2 (07:55→08:00)
--- NOTE | 2023-01-19 08:18 | P.CNS ---
Date of Consult: 01/19/23 Reason for Consult: Shortness of breath Chief Complaint: Influenza pneumonia and hypoxemia History of Present Illness: Patient is 37 years of age with a history of psoriasis came sick on Thursday 10 PM started complaining of headaches feeling dizzy been vomiting she passed out a couple of times complaining of shortness of breath and appeared in the emergency room history of severe psoriasis Allergies No Known Allergies Allergy (Unverified 10/29/11 16:16) Home Medications: NK [No Home Meds] 01/18/23 - Past Medical/Surgical History Diabetic: No -: Psoriasis -: Psoriatic arthritis -: uterine fibroids -: skin grafts -: elda - Family History Father Family History: Reviewed- Non-Contributory - Social History Smoking Status: Never smoker Alcohol use: No CD- Drugs: No Caffeine use: Yes Review of Systems General: Weakness Respiratory: Shortness of Breath Gastrointestinal: Nausea Physical Examination Temp Pulse Resp BP Pulse Ox 98.1 F 85 18 124/65 98 01/19/23 04:00 01/19/23 04:00 01/19/23 04:00 01/19/23 04:00 01/19/23 04:00 General: Alert, Oriented x3 HEENT: Atraumatic Respiratory: Clear to auscultation bilaterally Cardiovascular: No edema, Regular rate/rhythm Gastrointestinal: Normal bowel sounds, Soft and benign Musculoskeletal: No clubbing, No contractures Laboratory Data (last 24 hrs) 01/18/23 01/18/23 01/18/23 14:13 14:13 14:13 WBC 5.70 Hgb 11.8 L Hct 36.3 Plt Count 259 PT 12.5 INR 1.14 APTT 30.8 Sodium 140 Potassium 3.6 BUN 9 Creatinine 0.97 Glucose 115 H Total Bilirubin 0.4 AST 36 ALT 36 Alkaline Phosphatase 72 - Problems (1) Influenzal pneumonia Current Visit: Yes Status: Acute Plan: Patient is 37 years of age became sick Lewis evening started complaining of feeling dizzy headaches nausea vomiting passed out patient also had a fever since admission vital signs are currently stable oxygenation satisfactory admitted with mild hypercapnia prior history of cardiopulmonary problems patient's white count is normal no evidence of pulmonary emboli some interstitial changes likely she has influenza infection continue with present treatment check room air pulse ox ambulate
--- NOTE | 2023-01-19 09:00 | P.PN ---
Subjective Date of Service: 01/19/23 Chief Complaint: Influenza pneumonia and hypoxemia Subjective: No new changes Physical Examination - Vital Signs Temperature: 98.1 F Blood Pressure: 124/65 Pulse: 85 Respirations: 18 Pulse Ox (%): 98 - Physical Exam General: Alert, Oriented x3 HEENT: Atraumatic Neck: Supple Respiratory: Normal air movement Integumentary: Rash(es) Neurological: Normal speech - Studies Laboratory Data (last 24 hrs) 01/18/23 01/18/23 01/18/23 14:13 14:13 14:13 WBC 5.70 Hgb 11.8 L Hct 36.3 Plt Count 259 PT 12.5 INR 1.14 APTT 30.8 Sodium 140 Potassium 3.6 BUN 9 Creatinine 0.97 Glucose 115 H Total Bilirubin 0.4 AST 36 ALT 36 Alkaline Phosphatase 72 Microbiology Data (last 24 hrs): 01/18/23 13:58 Nasopharnyx Influenza Type A Antigen Screen - Final 01/18/23 13:58 Nasopharnyx Influenza Type B Antigen Screen - Final Assessment And Plan - Plan Influenza: On osetalmivir, antibiotics and breathing treatment. we will continue routine care with antitussive and breathing treatment. we will follow clinical course. Psoriasis: we will continue outpt care. Respiratory failure with hypoxia: we will continue supplemental oxygen and wean off as tolerated. Prophylaxis: Lovenox for DVT. Disposition: we will dc home possibly in next 48hrs.
[2023-01-19] MEDS: GUAIFENESIN/CODEINE 5ML UCUP PO PRN (10:01)
[2023-01-19] MEDS: OSELTAMIVIR 75 MG CAP PO SCH ×2 (10:01→20:41)
[2023-01-19] MEDS: NA CHLORIDE 0.9% 1,000 ML IV SCH (10:01)
[2023-01-19] MEDS: AZITHROMYCIN 250 MG TAB PO SCH (18:09)
[2023-01-19] MEDS: BUDESONIDE 0.5 MG/2 ML NEB NEB SCH (19:55)
[2023-01-19] MEDS ORDERED: ZOLPIDEM TARTRATE 5 MG TABLET PO PRN (19:58)
[2023-01-20] MEDS: IPRATROPIUM BROM 0.5MG/2.5ML NEB SCH ×4 (00:55→20:00)
[2023-01-20] MEDS: ALBUTEROL 2.5 MG/3 ML NEB SOL NEB SCH ×4 (00:55→20:00)
[2023-01-20 06:58] LABS: Absolute Lymphocytes (CBC) 1.4 K/uL (0.7-4.9); Hematocrit 32.2 % (36.0-45.0); Lymphocytes % 25.6 % (15.3-44.8); MPV 7.6 fL (7.6-11.3); Platelets 207 thou/uL (152-406); RBC Red Blood Cell Count 3.51 M/uL (3.86-4.86)
[2023-01-20 07:10] LABS: Protime INR 1.05
[2023-01-20 07:20] LABS: Albumin 2.6 g/dL (3.4-5.0); Bilirubin Total 0.3 mg/dL (0.2-1.0); Magnesium 2.4 mg/dL (1.6-2.4); Potassium 3.6 mEq/L (3.5-5.1); Protein, Total 7.3 g/dL (6.4-8.2)
[2023-01-20] MEDS: BUDESONIDE 0.5 MG/2 ML NEB NEB SCH (07:50)
[2023-01-20] MEDS: OSELTAMIVIR 75 MG CAP PO SCH ×2 (09:00→21:10)
[2023-01-20] MEDS: AZITHROMYCIN 250 MG TAB PO SCH (10:40)
[2023-01-20] MEDS: NA CHLORIDE 0.9% 1,000 ML IV SCH (11:00)
--- NOTE | 2023-01-20 12:35 | P.PN ---
Subjective Date of Service: 01/20/23 Chief Complaint: Influenza pneumonia and hypoxemia Subjective: No new changes, Improving Physical Examination - Vital Signs Temperature: 99.2 F Blood Pressure: 106/53 Pulse: 87 Respirations: 18 Pulse Ox (%): 96 - Physical Exam General: Alert, Oriented x3 HEENT: Atraumatic Neck: Supple Respiratory: Normal air movement Cardiovascular: Regular rate/rhythm, Normal S1 S2 Gastrointestinal: Soft and benign Musculoskeletal: No swelling Assessment And Plan - Plan Influenza: On oseltamivir, antibiotics and breathing treatment. we will continue routine care with antitussive and breathing treatment. we will follow clinical course. Psoriasis: we will continue outpt care. Respiratory failure with hypoxia: deemed to be improving. we will continue supplemental oxygen and wean off as tolerated. Prophylaxis: Lovenox for DVT. Disposition: we will dc home possibly in next 24hrs.
[2023-01-20] MEDS: METHYLPREDNISOLONE 125 MG INJ IV SCH ×2 (13:44→21:09)
--- NOTE | 2023-01-20 13:58 | RAD REPORT ---
EXAM DESCRIPTION: RAD - Chest Single View - 01/20/2023 1:31 pm CLINICAL HISTORY: viral pneumonia ? Chest pain. COMPARISON: Chest Single View dated 01/18/2023; Chest Single View dated 08/31/2021; Chest Single View dated 05/28/2021 FINDINGS: Portable technique limits examination quality. Bilateral pulmonary opacities are present, greatest in the right mid lung, likely representing pneumo tia. This appears progressive since 01/18/2023 prior study. The heart is normal in size. No displaced fractures. IMPRESSION: Bilateral pneumonia pattern is seen, greatest in the right mid lung.
[2023-01-21] MEDS: IPRATROPIUM BROM 0.5MG/2.5ML NEB SCH ×2 (02:35→07:35)
[2023-01-21] MEDS: ALBUTEROL 2.5 MG/3 ML NEB SOL NEB SCH ×4 (02:35→20:15)
[2023-01-21] MEDS: OSELTAMIVIR 75 MG CAP PO SCH ×2 (09:16→20:33)
[2023-01-21] MEDS: METHYLPREDNISOLONE 125 MG INJ IV SCH (09:22)
[2023-01-21] MEDS: AZITHROMYCIN 250 MG TAB PO SCH (09:22)
--- NOTE | 2023-01-21 12:14 | P.PN ---
Subjective Date of Service: 01/21/23 Chief Complaint: Influenza pneumonia and hypoxemia Subjective: Improving (Patient is improving still hypoxic complaining of chest congestion) Review of Systems Respiratory: Cough, Shortness of Breath Physical Examination - Vital Signs Temperature: 97.4 F Blood Pressure: 103/63 Pulse: 74 Respirations: 18 Pulse Ox (%): 94 - Physical Exam General: Alert, Oriented x3, Mild distress Respiratory: Clear to auscultation bilaterally Cardiovascular: No edema, Regular rate/rhythm, Normal S1 S2 Assessment And Plan - Current Problems (Diagnosis) (1) Influenzal pneumonia Current Visit: Yes Status: Acute Plan: Patient is 37 years of age admitted with possible influenza pneumonia she had previous seems to be doing better better sitting upright talking vital signs oxygenation satisfactory today her lungs sound clear Labs reviewed bilateral opacities noted right greater than the left White count is normal and Augmentin for the possibility of post influenza pneumonia continue with azithromycin and to viral therapy room air pulse ox ambulate eluate for discharge DC IV Solu- Medrol changed to p.o. prednisone will discharge home on low-dose prednisone 10 mg twice a day for a week in addition to Augmentin and Zithromax and Tamiflu con home demonstration agent adding Advair no fever in the past 24 hours
--- NOTE | 2023-01-21 15:43 | P.PN ---
Subjective Date of Service: 01/21/23 Chief Complaint: Influenza pneumonia and hypoxemia Subjective: No new changes, Improving Physical Examination - Vital Signs Temperature: 97.4 F Blood Pressure: 103/63 Pulse: 74 Respirations: 18 Pulse Ox (%): 94 - Physical Exam General: Alert HEENT: Atraumatic Neck: Supple Respiratory: Normal air movement Cardiovascular: Regular rate/rhythm, Normal S1 S2 Gastrointestinal: Soft and benign Musculoskeletal: No swelling Neurological: Normal speech Assessment And Plan - Plan Influenza: On oseltamivir, antibiotics and breathing treatment. we will continue routine care with antitussive and breathing treatment. we will follow clinical course. Pulmonary following for management recs. Psoriasis: we will continue outpt care. Respiratory failure with hypoxia: deemed to be improving. still hypoxic off oxygen suo we will continue supplemental oxygen and wean off as tolerated. Prophylaxis: Lovenox for DVT. Disposition: we will dc home possibly in next 24hrs.
[2023-01-21] MEDS: AMOX/K CLAV 875 MG TAB PO SCH ×2 (18:11→20:33)
[2023-01-21] MEDS: predniSONE 20 MG TAB PO SCH (20:32)
[2023-01-21] MEDS: DULERA 200/5 (MOMETASONE/FORMOTEROL) INHALER IH SCH (20:43)
[2023-01-21] MEDS: GUAIFENESIN/CODEINE 5ML UCUP PO PRN (22:48)
[2023-01-22] MEDS: ALBUTEROL 2.5 MG/3 ML NEB SOL NEB SCH ×3 (01:35→11:08)
--- NOTE | 2023-01-22 07:37 | RAD REPORT ---
EXAM DESCRIPTION: Imelda Single View01/22/2023 6:23 am CLINICAL HISTORY: Chest pain COMPARISON: January 20, 2023 FINDINGS: Partial resolution in right lung opacities. Few areas atelectasis left lung base. Heart is mildly enlarged IMPRESSION: Partial resolution in right lung opacities probably pneumonia. Few areas of atelectasis left lung base
[2023-01-22] MEDS: predniSONE 20 MG TAB PO SCH (09:00)
[2023-01-22] MEDS: OSELTAMIVIR 75 MG CAP PO SCH (09:43)
[2023-01-22] MEDS: AZITHROMYCIN 250 MG TAB PO SCH (09:44)
[2023-01-22] MEDS: DULERA 200/5 (MOMETASONE/FORMOTEROL) INHALER IH SCH (09:44)
[2023-01-22] MEDS: AMOX/K CLAV 875 MG TAB PO SCH (09:44)
[2023-01-22 11:23] VITALS: O2SAT 98
--- NOTE | 2023-01-22 15:09 | P.DS ---
Admission Date: 01/20/23 Discharge Date: 01/22/23 Disposition: ROUTINE DISCHARGE Discharge Condition: GOOD Reason for Admission: Influenza pneumonia and hypoxemia Brief History of Present Illness: Patient is a 37-year-old female who presents to the emergency room with cough and shortness of breath. Patient symptoms started about 48 hours ago with nausea and weakness. Patient was getting more short of breath and having a lot of congestion. She says she woke up in the middle of the night and she could not really catch her breath. She feels like she stopped breathing at one time. She was tachypneic and running low-grade fever so she came into the emergency room for further evaluation. In the ER she had labs performed which did not reveal any significant infiltrates. She did have hypoxemia with O2 sats running at 85% on room air. She was started on nebs, steroids, and antivirals. Patient's work-up showed that she was positive for influenza. Patient will be started on Tamiflu. Continue with nebs and cough medication as needed. Procalcitonin level to make sure patient does not have a secondary bacterial infection. Patient will be admitted to the hospital for further evaluation. Patient has a history of psoriasis and psoriatic arthritis. She had been taking Skyrizi up until a year ago. She goes to [facility] rheumatology for her treatments. She stated that she did not have the money for her co-pay or her labs so she did not go for follow-up. Her psoriatic plaques have come back with a vengeance and the started about 4 months ago. She states that steroids make her psoriatic plaques worsen. She will follow-up as an outpatient with rheumatology or dermatology for further treatment options. This will be managed as an outpatient. Patient will be treated for influenza pneumonia at this time and will do inhaled steroids since she does not respond well to IV steroids. Hospital Course: She was admitted for inpatient care and started on IV steroid, antibiotic thera py and started on IVF for fluid. She responded well to treatment and at pulmonary physician consulted for respiratory failure with hypoxia. She was slowly weaned off oxygen supplementation and also a steroid dose de-escalated. She was deemed stable for discharge today to complete 3 more doses of oseltamivir and oral course of antibiotic with Augmentin. She will follow-up with her primary care doctor or deputy insurance commissioner for management of her psoriatic lesions. Vital Signs/Physical Exam: Temp Pulse Resp BP Pulse Ox 97.2 F 70 14 101/62 95 01/22/23 12:00 01/22/23 12:00 01/22/23 12:00 01/22/23 12:00 01/22/23 12:00 General: Alert HEENT: Atraumatic Neck: Supple Respiratory: Normal air movement Cardiovascular: Regular rate/rhythm, Normal S1 S2 Gastrointestinal: Soft and benign Musculoskeletal: No swelling Integumentary: Rash(es), Other (psoriatic plaques on scalp) Neurological: Normal speech, Normal strength at 5/5 x4 extr Laboratory Data at Discharge: WBC 5.50 thou/uL (4.3-10.9) 01/20/23 06:22 Hgb 10.5 g/dL (12.0-15.0) L 01/20/23 06:22 Hct 32.2 % (36.0-45.0) L 01/20/23 06:22 Plt Count 207 thou/uL (152-406) 01/20/23 06:22 PT 11.6 SECONDS (9.5-12.5) 01/20/23 06:22 INR 1.05 01/20/23 06:22 APTT 30.7 SECONDS (24.3-36.9) 01/20/23 06:22 Sodium 144 mEq/L (136-145) 01/20/23 06:22 Potassium 3.6 mEq/L (3.5-5.1) 01/20/23 06:22 BUN 5 mg/dL (7-18) L 01/20/23 06:22 Creatinine 0.78 mg/dL (0.55-1.02) 01/20/23 06:22 Glucose 149 mg/dL (74-106) H 01/20/23 06:22 Magnesium 2.4 mg/dL (1.6-2.4) 01/20/23 06:22 Total Bilirubin 0.3 mg/dL (0.2-1.0) 01/20/23 06:22 AST 35 U/L (15-37) 01/20/23 06:22 ALT 31 U/L (13-56) 01/20/23 06:22 Alkaline Phosphatase 59 U/L (45-117) 01/20/23 06:22 Home Medications: NK [No Home Meds] 01/18/23 Physician Discharge Instructions: -DC IV and DC home -Follow-up with PCP in 1 to 2 weeks -Follow-up with Pulmonary in 1 to 2 weeks -Patient may need to schedule a sleep study as an outpatient -Patient will need to follow-up with rheumatology or dermatology for her psoriasis -Please call Dr. Bennett at [phone] if any questions regarding hospital stay -Please call nursing station at [phone] if any nursing or medication questions -Return to the emergency room if symptoms worsen Diet: AHA Followup: NONE,NONE [Primary Care Provider] -
[2023-01-22 16:44] VITALS: BP 95/61; TEMP 97.4
== END 2023-01-22 17:47 | disposition home or self-care (01) | DRG 193 ==
LOC: ER 13:35 → ERHOLD 18:21 → 4TH 19:33 → OBSVTOIN 01-20 13:28
PROVIDERS: ADMIT Hospitalist; ATTEND Internal Medicine Nephrology
DX: J10.00 Influenza due to other identified influenza virus with unspecified type of pneumonia (principal); J96.91 Respiratory failure, unspecified with hypoxia; Z68.41 Body mass index [BMI] 40.0-44.9, adult; E66.01 Morbid (severe) obesity due to excess calories; L40.9 Psoriasis, unspecified; L40.50 Arthropathic psoriasis, unspecified; Z11.52 Encounter for screening for COVID-19; Z79.899 Other long term (current) drug therapy; Z87.891 Personal history of nicotine dependence
CPT/HCPCS: 36415; 36600; 71045; 71275; 80053; 81025; 82805; 83605; 83735; 83880; 84145; 84484; 85025; 85379; 85610; 85730; 87040; 87804; 87811; 93005; 96360; 96361; 99285; G0378; J2930; J3535; J7030; J7040; J7512; J7613; J7614; J7626; J7634; J7644; Q0169; Q9967

== ENCOUNTER 2023-02-08 14:24 | Emergency (ER) | payer SELFPAY ==
--- OUTSIDE RECORDS SUMMARY | 2023-02-08 14:50 | XMS REPORT | Continuity of Care Document ---
:1985 Author Organization [facility] t Address [address] [place] [place] [address] Care Team Providers Name Role Phone Abhijit Mccallum [facility], [facility] Primary Care P hysician GC_GCBZW_Kadiyala_S Attending Clinician Unavailable TEE BLANDON Attending Clinician Unavailable Tee Cardoza Attending Clinician Doctor Unassigned, [place] Attending Clinician Unavailable Radha Patel DO Attending Clinician GC_GCBZW_Kadiefrema_S Admitting Clinician Unavailable Payers Payer Name Policy Type Policy Number Effective Date Expiration Date S ource Problems Condition Condition Condition Status Onset Resolution Last Treating Co mments Source Name Details Category Date Date Treatment Clinician Date Overweight Overweight Disease Active 2012-03 Overview : Univers 2-04 Formattin ity of 00:00: g of this [place] 00 note Medical might be Branch different from the original. 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 Need for Need for Disease Active [...] Class ity of [facility] Social History Social Habit Start Date Stop Date Quantity Comments Source Exposure to Not sure [facility] SARS-CoV-2 [place] Medical (event) Branch History SDOH University o f Alcohol Frequency [place] M edical Branch History SDOH University o f Alcohol Std [place] [facility] Drinks Branch History SDOH University o f Alcohol Binge [place] [facility] al Branch Alcohol intake 2021-06-08 2021-06-08 Current drinker Unive rsity of 00:00:00 00:00:00 of alcohol [place] [facility] (finding) Branch Tobacco use and 2012-07-01 2012-07-01 Never used Universit y of exposure 00:00:00 00:00:00 [facility] Alcohol Comment 2012-07-01 2012-07-01 1 x per month Univer sity of 00:00:00 00:00:00 [facility] Sex Ass[birth year] At [birth year] Universit y of 00:00:00 00:00:00 [facility] Smoking Status Start Date Stop Date Source Never smoker [facility] Medications Ordered Filled Start Stop [...] 00:00: 00 TAKE 5 ML 2022-1 No [id number] EVERY 4 TO 0-10 6 HOURS 00:00: [...] Dose 2021-0 No Unknown 09-09 00:00: 00 Dose 2-0 [...] 09-06 00:00: 00 Dose 2022-0 No Unknown 6 [...] 6 00:00: 00 Dose 2022-0 No Unknown 6 00:00: 00 Dose 2022-0 No Unknown 08-26 00:00: 00 Dose 2022-0 No Unknown 6 00:00: 00 gabapentin 2022-0 No 1mg 100 mg 3-31 capsule 00:00: 00 Dose 2022-0 No Unknown 3- 00:00: 00 gabapentin 2022-0 No 1mg 100 mg 3-31 capsule 00:00: 00 Dose 2-0 No Unknown 3-31 00:00: 00 gabapentin 2021-0 No 1mg 100 mg 3-31 capsule 00:00: 00 Dose 2021-0 No Unknown 3-31 00:00: 00 gabapentin 2022-0 No 1mg 100 mg 3-31 capsule 00:00: 00 Dose 2-0 No Unknown 3-31 00:00: 00 gabapentin 2021-0 No 1mg 100 mg 3-31 capsule 00:00: 00 Dose 2021-0 No Unknown 3-31 00:00: 00 gabapentin 2021-0 No 1mg 100 mg 3-31 capsule 00:00: 00 Dose 2021-0 No Unknown 3-31 00:00: 00 Dose 2021-0 No Unknown 331 00:00: 00 Dose 2021-0 No Unknown 331 00:00: 00 Dose 2021-0 No Unknown 331 00:00: 00 Dose 2021-0 No Unknown 331 00:00: 00 HYDROcodone 2021-2021- No 1{tbl} 1 [...] Branch 06/08/21 at 1700, DAVID ibuprofen Yes [id number] 800mg Take 1 Univers 800 mg - tablet by ity of tablet 00:00: mouth [place] 00 every 8 Medical (eight) Branch hours as needed for Pain (scale 4-6). methocarbam Yes [id number] 750mg Take 1 Univers oL 750 mg [...] days. Indication s: acute pain naproxen Yes [id number] 500mg Take 1 Un sasha 500 mg 7-26 tablet by ity of tablet 00:00: mouth 2 (two) Medical times Branch daily with meals. naproxen Yes [id number] 500mg Take 1 Un sasha 500 mg 7-26 tablet by ity of tablet 00:00: mouth 2 (two) Medical times Branch daily with meals. naproxen Yes [id number] 500mg Take 1 Un sasha 500 mg 7-26 tablet by ity of tablet 00:00: mouth 2 (two) Medical times Branch daily with meals. amoxicillin 2020- No [id number] 875mg Take 1 Univers 875 mg 7-26 [...] mg/5 00:00: mL syrup 00 Prozac 10 2015-1 No 1mg mg capsule 0-05 00:00: 00 [...] No 1mg mg capsule 8- 00:00: 00 Proza 10 2014-0 No 1mg mg capsule 8- 00:00: 00 prednisone 2015-0 No 1mg 10 mg 8-31 tablet 00:00: 00 Proza 10 2014-0 No 1mg mg capsule 8-31 00:00: 00 prednisone 2015-0 No 1mg 10 mg 8-31 tablet 00:00: 00 Prozac 10 2014-0 No 1mg mg capsule 8- 00:00: 00 phentermine 2012-1 Yes 37.5mg Take [...] with Medical breakfast. Branch levonorgest 2012-03 Yes [id number] 1{devic 1 Device Univers rel 2-03 e} by ity of (MIRENA) 20 23:49: Intrauteri [place] mcg/24 hour 43 ne route Medi elkin (5 years) once now. Branc h IUD levonorgest 2012-03 Yes [id number] 1{devic 1 Device Univers rel 2-03 e} by ity of (MIRENA) 20 23:49: Intrauteri [place] mcg/24 hour 43 ne route Medi elkin (5 years) once now. Branc h IUD levonorgest 2012-03 Yes [id number] 1{devic 1 Device Univers rel 2-03 e} by ity of (MIRENA) 20 17:49: Intrauteri [place] mcg/24 hour 43 ne route Medi elkin (5 years) once now. Branc h IUD levonorgest 2012-03 Yes [id number] 1{devic 1 Device Univers rel 2-03 e} by ity of (MIRENA) 20 17:49: Intrauteri [place] mcg/24 hour 43 ne route Medi elkin (5 years) once now. Branc h IUD Vital Signs Vital Name Observation Time Observation Value Comments Source Systolic blood 2021-06-08 21:37:54 107 mm[Hg] Univer sity [facility] Diastolic blood 2021-06-08 21:37:54 74 mm[Hg] Unive [facility] Heart rate 2021-06-08 21:37:54 79 /min Universi ty of [facility] Body temperature 2021-06-08 21:37:54 37.06 [facility] ersity of [place] [facility] Respiratory rate 2021-06-08 21:37:54 18 /min Univ ersity of [place] [facility] Oxygen saturation in 2021-06-08 21:37:54 98 /min University of Arterial blood by [facility] [place] [facility] Pulse oximetry Branch Body weight 2021-06-08 20:33:00 90.719 kg Universi ty of [place] [facility] BMI 2021-06-08 20:33:00 34.33 kg/m2 Universi ty of [place] [facility] Systolic blood 2020-10-08 21:31:00 116 mm[Hg] Univer sity of pressure [place] [facility] Diastolic blood 2020-10-08 21:31:00 69 mm[Hg] Unive rsity of pressure [place] [facility] Heart rate 2020-10-08 21:31:00 59 /min Universi ty of [place] [facility] Body temperature 2020-10-08 21:31:00 37.28 [facility] ersity of [place] [facility] Respiratory rate 2020-10-08 21:31:00 16 /min [facility] ersity of [place] [facility] Body height 2020-10-08 21:31:00 162.6 cm Universi ty of [place] [facility] Body weight 2020-10-08 21:31:00 90.719 kg Universi ty of [place] [facility] BMI 2020-10-08 21:31:00 34.33 kg/m2 Universi ty of [place] [facility] Oxygen saturation in 2020-10-08 21:31:00 94 /min University of Arterial blood by [facility] [place] [facility] Pulse oximetry Branch BP Systolic 2022-03-26 [...] Procedure Date / Time Performed Performing Clinician Formerly [facility] e CONSENT/REFUSAL FOR 2021-06-08 20:26:40 [facility] TREATMENT POCT TEST 2020-10-08 21:38:00 Radha Patel [facility] CONSENT/REFUSAL FOR 2020-10-08 21:18:59 Doctor Unassigned, No Un iversity of [place] DIAGNOSIS AND Name Medical Branch TREATMENT NOTICE OF PRIVACY 2020-10-08 21:18:38 [facility] Plan of Care Planned Activity Planned Date Details Comments Source Goal Plan of Care Note [code = 73417-8] Goal Plan of Care Note [code = 18244-2] Goal Plan of Care Note [code = 37259-6] Goal Plan of Care Note [code = 16768-0] Goal Plan of Care Note [code = 61456-4] Goal Plan of Care Note [code = 77862-5] Goal Plan of Care Note [code = 50804-1] Goal Plan of Care Note [code = 76606-6] Goal Plan of Care Note [code = 03568-7] Goal Plan of Care Note [code = 26129-1] Goal Plan of Care Note [code = 67381-7] Goal Plan of Care Note [code = 11128-4] Goal Plan of Care Note [code = 27938-8] Goal Plan of Care Note [code = 23521-0] Goal Plan of Care Note [code = 38065-6] Goal Plan of Care Note [code = 94187-2] Goal Plan of Care Note [code = 40074-3] Goal Plan of Care Note [code = 82948-9] Goal Plan of Care Note [code = 27863-2] Goal Plan of Care Note [code = 14518-2] Goal Plan of Care Note [code = 41414-4] Goal Plan of Care Note [code = 57209-9] Goal Plan of Care Note [code = 57738-7] Goal Plan of Care Note [code = 06812-5] Goal Plan of Care Note [code = 31774-6] Goal Plan of Care Note [code = 12521-3] Goal Plan of Care Note [code = 74308-9] Goal Plan of Care Note [code = 14721-6] Goal Plan of Care Note [code = 58472-7] Goal Plan of Care Note [code = 52655-2] Goal Plan of Care Note [code = 36241-1] Goal Plan of Care Note [code = 22354-0] Goal Plan of Care Note [code = 76641-8] Goal Plan of Care Note [code = 52425-1] Goal Plan of Care Note [code = 21308-2] Goal Plan of Care Note [code = 96106-7] Goal Plan of Care Note [code = 83001-1] Goal Plan of Care Note [code = 32692-4] Goal Plan of Care Note [code = 92894-4] Goal Plan of Care Note [code = 58245-3] Goal Plan of Care Note [code = 32494-0] Goal Plan of Care Note [code = 72013-7] Goal Plan of Care Note [code = 79296-8] Goal Plan of Care Note [code = 44945-5] Goal Plan of Care Note [code = 37801-6] Goal Plan of Care Note [code = 84382-3] Goal Plan of Care Note [code = 28944-0] Goal Plan of Care Note [code = 99881-0] Goal Plan of Care Note [code = 77737-5] Goal Plan of Care Note [code = 83651-9] Goal Plan of Care Note [code = 79067-8] Goal Plan of Care Note [code = 58483-6] Goal Plan of Care Note [code = 78556-9] Goal Plan of Care Note [code = 72815-7] Goal Plan of Care Note [code = 48455-7] Goal Plan of Care Note [code = 60410-2] Goal Plan of Care Note [code = 15661-6] Goal Plan of Care Note [code = 27499-7] Goal Plan of Care Note [code = 67309-8] Goal Plan of Care Note [code = 73034-5] Goal Plan of Care Note [code = 71344-7] Goal Plan of Care Note [code = 53502-9] Goal Plan of Care Note [code = 00308-9] Goal Plan of Care Note [code = 89182-4] Goal Plan of Care Note [code = 25880-4] Goal Plan of Care Note [code = 68191-1] Goal Plan of Care Note [code = 38849-5] Goal Plan of Care Note [code = 12380-5] Goal Plan of Care Note [code = 64830-5] Goal Plan of Care Note [code = 02785-7] Goal Plan of Care Note [code = 69781-6] Goal Plan of Care Note [code = 17225-4] Goal Plan of Care Note [code = 38691-8] Goal Plan of Care Note [code = 37886-1] Goal Plan of Care Note [code = 26154-3] Goal Plan of Care Note [code = 26648-9] Goal Plan of Care Note [code = 03304-8] Goal Plan of Care Note [code = 63901-7] Goal Plan of Care Note [code = 03752-4] Goal Plan of Care Note [code = 42047-9] Goal Plan of Care Note [code = 87579-2] Goal Plan of Care Note [code = 23350-0] Goal Plan of Care Note [code = 22840-2] Goal Plan of Care Note [code = 94927-5] Goal Plan of Care Note [code = 64443-5] Goal Plan of Care Note [code = 18463-5] Goal Plan of Care Note [code = 21760-3] Goal Plan of Care Note [code = 83388-3] Goal Plan of Care Note [code = 30363-2] Goal Plan of Care Note [code = 28968-0] Goal Plan of Care Note [code = 16958-1] Goal Plan of Care Note [code = 10985-6] Goal Plan of Care Note [code = 96286-9] Goal Plan of Care Note [code = 97355-4] Goal Plan of Care Note [code = 35404-2] Goal Plan of Care Note [code = 88091-4] Goal Plan of Care Note [code = 76533-7] Goal Plan of Care Note [code = 60556-3] Goal Plan of Care Note [code = 81132-3] Goal Plan of Care Note [code = 08677-1] Goal Plan of Care Note [code = 83026-7] Goal Plan of Care Note [code = 15309-4] Goal Plan of Care Note [code = 94365-9] Goal Plan of Care Note [code = 54060-9] Goal Plan of Care Note [code = 26708-4] Goal Plan of Care Note [code = 14414-0] Goal Plan of Care Note [code = 00421-8] Goal Plan of Care Note [code = 95261-4] Goal Plan of Care Note [code = 71185-2] Goal Plan of Care Note [code = 59004-8] Goal Plan of Care Note [code = 57864-1] Goal Plan of Care Note [code = 05410-2] Goal Plan of Care Note [code = 32389-5] Goal Plan of Care Note [code = 61846-5] Goal Plan of Care Note [code = 06239-3] Goal Plan of Care Note [code = 20809-9] Goal Plan of Care Note [code = 61360-9] Goal Plan of Care Note [code = 66120-5] Goal Plan of Care Note [code = 72848-4] Goal Plan of Care Note [code = 70063-9] Goal Plan of Care Note [code = 61285-9] Goal Plan of Care Note [code = 29616-5] Goal Plan of Care Note [code = 45657-7] Goal Plan of Care Note [code = 15911-1] Goal Plan of Care Note [code = 37848-1] Goal Plan of Care Note [code = 68092-5] Goal Plan of Care Note [code = 20070-3] Goal Plan of Care Note [code = 92924-3] Goal Plan of Care Note [code = 61764-4] Goal Plan of Care Note [code = 24755-8] Goal Plan of Care Note [code = 98959-5] Goal Plan of Care Note [code = 91572-0] Goal Plan of Care Note [code = 63967-4] Goal Plan of Care Note [code = 53135-2] Goal Plan of Care Note [code = 97831-3] Goal Plan of Care Note [code = 00777-7] Goal Plan of Care Note [code = 56792-5] Goal Plan of Care Note [code = 13892-5] Goal Plan of Care Note [code = 16899-0] Goal Plan of Care Note [code = 36474-0] Goal Plan of Care Note [code = 53481-4] Goal Plan of Care Note [code = 32373-5] Goal Plan of Care Note [code = 66732-1] Goal Plan of Care Note [code = 89453-2] Goal Plan of Care Note [code = 14058-5] Goal Plan of Care Note [code = 29689-7] Goal Plan of Care Note [code = 54446-0] Goal Plan of Care Note [code = 99775-2] Goal Plan of Care Note [code = 46117-2] Goal Plan of Care Note [code = 00642-2] Goal Plan of Care Note [code = 41826-5] Goal Plan of Care Note [code = 06575-5] Goal Plan of Care Note [code = 44148-4] Goal Plan of Care Note [code = 86496-3] Goal Plan of Care Note [code = 02391-0] Goal Plan of Care Note [code = 04151-9] Goal Plan of Care Note [code = 46122-1] Goal Plan of Care Note [code = 87326-1] Goal Plan of Care Note [code = 87452-1] Goal Plan of Care Note [code = 01502-0] Goal Plan of Care Note [code = 91883-7] Goal Plan of Care Note [code = 47420-5] Goal Plan of Care Note [code = 71227-2] Goal Plan of Care Note [code = 59135-6] Goal Plan of Care Note [code = 43615-3] Goal Plan of Care Note [code = 54684-6] Goal Plan of Care Note [code = 07486-4] Goal Plan of Care Note [code = 42632-0] Goal Plan of Care Note [code = 95573-0] Goal Plan of Care Note [code = 65610-8] Goal Plan of Care Note [code = 01084-5] Goal Plan of Care Note [code = 07868-9] Goal Plan of Care Note [code = 00474-8] Goal Plan of Care Note [code = 63519-3] Goal Plan of Care Note [code = 27937-3] Goal Plan of Care Note [code = 51229-6] Goal Plan of Care Note [code = 88863-3] Goal Plan of Care Note [code = 40994-3] Goal Plan of Care Note [code = 46917-3] Goal Plan of Care Note [code = 06231-8] Goal Plan of Care Note [code = 23272-2] Goal Plan of Care Note [code = 76262-1] Goal Plan of Care Note [code = 90731-5] Goal Plan of Care Note [code = 87743-6] Goal Plan of Care Note [code = 88546-2] Goal Plan of Care Note [code = 28180-0] Encounters Start End Encounter Admission Attending Care Care Encounter Source Date/Time Date/Time Type Type Clinicians Facility Department ID 2023-01-12 2023-01-12 Outpatient GC_GCBZW_Ka PRIV PRIV [id number] [facility] 00:00:00 00:00:00 diyala_S [id number] Medic al 2023-01-11 2023-01-11 Outpatient GC_GCBZW_Ka PRIV PRIV 276 [id number] [facility] 00:00:00 00:00:00 diyala_S [id number] Medic al 2022-05-05 2022-05-05 Outpatient SFA SFA [id number] 023 Abhijit 13:09:40 13:09:40 0220 Alessio Syed 2022-04-30 2022-04-30 Outpatient SFA SFA [id number] 023 Abhijit 17:01:31 17:01:31 0215 Alessio Kunal 2022-03-28 2022-03-28 Outpatient SFA SFA [id number] 023 Ahbijit 11:08:44 11:08:44 0113 Alessio Syed 2022-03-26 2022-03-26 Outpatient SFA SFA 14642-1 023 Abhijit 17:18:46 17:18:46 0111 Alessio Kunal 2022-03-26 2022-03-26 Outpatient [id number]- [id number] e9 468u87-8 00:00:00 00:00:00 Visit 1b63-7006 q17-0158-j -c498-s5c 971-i9j673 6745g6092 4v7016 2022-03-25 2022-03-25 Outpatient SFA SFA [id number] 023 Abhijit 09:47:58 09:47:58 0110 [facility] 2022-03-25 2022-03-25 Outpatient [id number]- [id number] v951n7-6 00:00:00 00:00:00 Visit 4356-4df7 356-4df7-a -xa85-98w t79-45l05i 78g2u097k 8q262o 2022-02-11 2022-02-11 Outpatient SFA SFA 91061-2 022 Abhijit 10:38:03 10:38:03 1129 Alessio Syed 2022-02-11 2022-02-11 Outpatient mcz9me7m- [id number] ea d9rv5r-a 00:00:00 00:00:00 Visit iy8f-1796 g4e-9486-s -e404-0l4 246-5d2bc4 dm9096i86 195a12 2022-01-30 2022-01-30 Outpatient SFA SFA [id number] 022 Abhijit 08:12:07 08:12:07 1117 F Kunal 2022-01-30 2022-01-30 Outpatient 6j89u7tf- [id number] 7b 61d9he-1 00:00:00 00:00:00 Visit 7aac-4b37 aac-4b37-b -hy8y-87t v9v-40b857 657z2h1th f5b5da 2021-12-23 2021-12-23 Outpatient SFA SFA 82748-6 Abhijit 10:06:30 10:06:30 1010 F Kunal 2021-12-23 2021-12-23 Outpatient 8lq1m88p- [id number] 6e x5k97x-1 00:00:00 00:00:00 Visit 4644-4df8 644-4df8-8 -832f-715 32f-715e84 h35wue97j aab02d 2021-11-19 2021-11-19 Outpatient unf298zj- [id number] ad k022ja-u 00:00:00 00:00:00 Visit sl36-8w1y q16-6l3h-w -q091-84n 765-69m930 0399m374p 1x186v 2021-09-25 2021-09-25 Outpatient [id number]- [id number] 1e 16820i-s 00:00:00 00:00:00 Visit o8z9-9w98 0p6-8q72-g -s438-m4o 976-d3ac12 p18gi5fn8 de8aa1 2021-09-23 2021-09-23 Outpatient 5574n24v- [id number] 31w69h-4 00:00:00 00:00:00 Visit 3572-4f85 572-4f85-9 -6e6j-43g r8z-98h6p7 7w58q484l 5u310l 2021-06-08 2021-06-08 Emergency X LELAND, [facility] ERT [id number] Univers 15:37:00 16:46:00 TEE [facility] 2021-06-08 2021-06-08 Emergency Blandon, [facility] 1.2.840.114 [id number] Univers 15:37:00 16:46:00 Tee GARRISONCLARK 350.1.13.10 i [facility].2.7.2.[address] [facility] [id number] [address] 2021-06-08 2021-06-08 Orders Doctor TONI 1.2.840.114 [id number] Univers 00:00:00 00:00:00 Only Unassigned, SUSANA 350.1.13.10 ity of [facility] 4.2.7.2.686 Yeyo as [id number] [address] 2020-10-08 2020-10-08 Emergency Jorge, [facility] 1.2.840.114 [id number] Univers 16:35:00 17:12:00 Radha Faustin Dave 350.1.13.10 ity of [place] 4.2.7.2.686 [facility] [id number] [address] 2020-10-08 2020-10-08 Emergency X [place] ERT [id number] Univers 16:19:00 16:19:[address] [facility] 2020-10-08 2020-10-08 Orders Doctor TONI 1.2.840.114 [id number] Univers 00:00:00 00:00:00 Only Unassigned, SUSANA 350.1.13.10 ity of [facility] 4.2.7.2.686 Yeyo as [id number] [address] 2016-04-14 2016-04-14 Outpatient MHIE MHIE [id number] Memoria 14:30:00 14:30:00 00 junior Mora [...] . . . . . . MIU/ML 1-8GETB-UQGSZES GEMA FEMALES . . . . . . . . . . . . MIU/ML <=7 UNLESS OTHERWISE INDIC ATED, ALL TESTING PERFORMED [facility] PATHOLOGY [facility], [facility]. [address] [place], [place] [id number] 4 HEEL PACKER: LUIZ STUBBS M.D. CLIA NUMBER [id number] CAP ACCREDITATION N O. [id number] VAGINAL PATHOGENS DNA [id number] 15:47:35 Test Item Value Reference Range Interpretation Comments JENNY SPECIES NEGATIVE NEGATIVE (test code = ) G. VAGINALIS POSITIVE NEGATIVE A (test code = 77418) T. VAGINALIS NEGATIVE NEGATIVE Note: The BD A ffirm VPIII (test code = Microbial Ident ification ) Testis a DNA pr obe test intended for us e in the detectionand id entification of Jenny spec ies, Gardnerellavagi nalis and Trichomonas vag inalis nucleic acid. U NLESS OTHERWISE INDIC ATED, ALL TESTING PERFORM ED [facility], [facility]. [address] [place] [id number] LABORATOR Y DIRECTOR: LUIZ PRICE M.D. CLIA NUMBER [id number] CAP ACCREDITATION N O. [id number] VAGINAL PATHOGENS DNA [id number] 00:00:00 Test Item Value Reference Range Interpretation Comments JENNY SPECIES (test code = ) NEGATIVE G. VAGINALIS (test code = ) POSITIVE T. VAGINALIS (test code = ) NEGATIVE VAGINAL PATHOGENS DNA [id number] 00:00:00 Test Item Value Reference Range Interpretation Comments JENNY SPECIES (test code = ) NEGATIVE G. VAGINALIS (test code = ) POSITIVE T. VAGINALIS (test code = ) NEGATIVE CBC W/AUTO [id number] 00:00:00 Test Item Value Reference Range Interpretation [...] NUCLEATED RBCS (test code = 0.00 K/UL 66458) CBC W/AUTO [id number] 00:00:00 Test Item Value Reference Range Interpretation [...] NUCLEATED RBCS (test code = 0.00 K/UL 45880) CBC W/AUTO [id number] 00:00:00 Test Item Value Reference Range Interpretation [...] NUCLEATED RBCS (test code = 0.00 K/UL 48298) LIVER (HEPATIC) FUNCTION [id number] 00:00:00 Test Item Value Reference Range Interpretation [...] = 2219) 26 U/L LIVER (HEPATIC) FUNCTION [id number] 00:00:00 Test Item Value Reference Range Interpretation Comments PROTEIN, TOTAL (test code = 2229) 7.9 G/DL ALBUMIN (test code = 2201) 4.3 G/DL BILIRUBIN, TOTAL (test code = 2207) 0.4 MG/DL BILIRUBIN, DIRECT (test code = 0.1 MG/DL 2021) ALKALINE PHOSPHATASE (test code = 73 U/L 2203) AST (test code = 2218) 23 U/L ALT (test code = 2219) 26 U/L BASIC METABOLIC [id number] 00:00:00 Test Item Value Reference Range Interpretation Comments GLUCOSE (test code = 2217) 103 MG/DL BUN (test code = 2208) 14 MG/DL CREATININE (test code = 2214) 0.68 MG/DL eGFR (2020 CKD-EPI) (test 114 ML/MIN/1.73 code = 66582) SODIUM (test code = 2231) 144 MEQ/L POTASSIUM (test code = 2228) 4.5 MEQ/L CHLORIDE (test code = 2215) 107 MEQ/L CARBON DIOXIDE (test code = 27 MEQ/L 2205) CALCIUM (test code = 2209) 10.0 MG/DL BASIC METABOLIC [id number] 00:00:00 Test Item Value Reference Range Interpretation Comments GLUCOSE (test code = 2217) 103 MG/DL BUN (test code = 2208) 14 MG/DL CREATININE (test code = 2214) 0.68 MG/DL eGFR (2020 CKD-EPI) (test 114 ML/MIN/1.73 code = 12352) SODIUM (test code = 2231) 144 MEQ/L POTASSIUM (test code = 2228) 4.5 MEQ/L CHLORIDE (test code = 2215) 107 MEQ/L CARBON DIOXIDE (test code = 27 MEQ/L 2206) CALCIUM (test code = 2209) 10.0 MG/DL CBC W/AUTO [id number] 00:00:00 Test Item Value Reference Range Interpretation [...] NUCLEATED RBCS (test code = 0.00 K/UL 31834) CBC W/AUTO [id number] 00:00:00 Test Item Value Reference Range Interpretation [...] NUCLEATED RBCS (test code = 0.00 K/UL 18973) CBC W/AUTO [id number] 00:00:00 Test Item Value Reference Range Interpretation [...] NUCLEATED RBCS (test code = 0.00 K/UL 11693) LIVER (HEPATIC) FUNCTION [id number] 00:00:00 Test Item Value Reference Range Interpretation [...] = 2219) 26 U/L LIVER (HEPATIC) FUNCTION [id number] 00:00:00 Test Item Value Reference Range Interpretation Comments PROTEIN, TOTAL (test code = 2229) 7.9 G/DL ALBUMIN (test code = 2201) 4.3 G/DL BILIRUBIN, TOTAL (test code = 2207) 0.4 MG/DL BILIRUBIN, DIRECT (test code = 0.1 MG/DL 2021) ALKALINE PHOSPHATASE (test code = 73 U/L 2203) AST (test code = 2218) 23 U/L ALT (test code = 2219) 26 U/L BASIC METABOLIC [id number] 00:00:00 Test Item Value Reference Range Interpretation Comments GLUCOSE (test code = 2217) 103 MG/DL BUN (test code = 2208) 14 MG/DL CREATININE (test code = 2214) 0.68 MG/DL eGFR (2020 CKD-EPI) (test 114 ML/MIN/1.73 code = 60029) SODIUM (test code = 2231) 144 MEQ/L POTASSIUM (test code = 2228) 4.5 MEQ/L CHLORIDE (test code = 2215) 107 MEQ/L CARBON DIOXIDE (test code = 27 MEQ/L 220) CALCIUM (test code = 2209) 10.0 MG/DL BASIC METABOLIC [id number] 00:00:00 Test Item Value Reference Range Interpretation Comments GLUCOSE (test code = 2217) 103 MG/DL BUN (test code = 2208) 14 MG/DL CREATININE (test code = 2214) 0.68 MG/DL eGFR (2020 CKD-EPI) (test 114 ML/MIN/1.73 code = 35268) SODIUM (test code = 2231) 144 MEQ/L POTASSIUM (test code = 2228) 4.5 MEQ/L CHLORIDE (test code = 2215) 107 MEQ/L CARBON DIOXIDE (test code = 27 MEQ/L 220) CALCIUM (test code = 2209) 10.0 MG/DL CBC W/AUTO [id number] 00:00:00 Test Item Value Reference Range Interpretation [...] NUCLEATED RBCS (test code = 0.00 K/UL 90557) CBC W/AUTO [id number] 00:00:00 Test Item Value Reference Range Interpretation [...] NUCLEATED RBCS (test code = 0.00 K/UL 02278) CBC W/AUTO [id number] 00:00:00 Test Item Value Reference Range Interpretation [...] NUCLEATED RBCS (test code = 0.00 K/UL 54401) LIVER (HEPATIC) FUNCTION [id number] 00:00:00 Test Item Value Reference Range Interpretation [...] = 2219) 26 U/L LIVER (HEPATIC) FUNCTION [id number] 00:00:00 Test Item Value Reference Range Interpretation Comments PROTEIN, TOTAL (test code = 2229) 7.9 G/DL ALBUMIN (test code = 2201) 4.3 G/DL BILIRUBIN, TOTAL (test code = 2207) 0.4 MG/DL BILIRUBIN, DIRECT (test code = 0.1 MG/DL 2021) ALKALINE PHOSPHATASE (test code = 73 U/L 2203) AST (test code = 2218) 23 U/L ALT (test code = 2219) 26 U/L BASIC METABOLIC [id number] 00:00:00 Test Item Value Reference Range Interpretation Comments GLUCOSE (test code = 2217) 103 MG/DL BUN (test code = 2208) 14 MG/DL CREATININE (test code = 2214) 0.68 MG/DL eGFR (2020 CKD-EPI) (test 114 ML/MIN/1.73 code = 50505) SODIUM (test code = 2231) 144 MEQ/L POTASSIUM (test code = 2228) 4.5 MEQ/L CHLORIDE (test code = 2215) 107 MEQ/L CARBON DIOXIDE (test code = 27 MEQ/L 2206) CALCIUM (test code = 2209) 10.0 MG/DL BASIC METABOLIC [id number] 00:00:00 Test Item Value Reference Range Interpretation Comments GLUCOSE (test code = 2217) 103 MG/DL BUN (test code = 2208) 14 MG/DL CREATININE (test code = 2214) 0.68 MG/DL eGFR (2020 CKD-EPI) (test 114 ML/MIN/1.73 code = 66630) SODIUM (test code = 2231) 144 MEQ/L POTASSIUM (test code = 2228) 4.5 MEQ/L CHLORIDE (test code = 2215) 107 MEQ/L CARBON DIOXIDE (test code = 27 MEQ/L 2206) CALCIUM (test code = 2209) 10.0 MG/DL H. PYLORI (BREATH)2021-09-05 13:02:07 Test Item Value Reference Range Interpretation Comments H. PYLORI (BREATH) NEGATIVE NEGATIVE UNLESS O THERWISE (test code = 71037) INDICATE D, ALL TESTING PERFORMED [facility] PATHOLOG[facility] [address] [place] [id number] [place] [address] DIRECTOR: LUIZ STUBBS M.D. CLIA NUMBER [id number] CAP ACCREDITATION N O. [id number] HEMOGLOBIN [id number] 04:43:10 Test Item Value Reference Range Interpretation Comments HEMOGLOBIN A1c (test code = 33306) 5.5 % 4.2-5.6 LIPID [id number] 03:04:55 Test Item Value Reference Range Interpretation [...] MOREINFORMATION , SEE CLIENT ANNOUNCE MENT AT [email or web address] RISK RATIO LDL/HDL 1.62 RATIO <3.22 UNLESS O THERWISE (test code = 2238) INDICATED , ALL TESTING PERFORMED [facility] PATHOLOGY [facility], [facility]. [address] [place] [address] [facility] DIRECTOR: LUIZ STUBBS M.D. CLIA NUMBER [id number] CAP ACCREDITATION N O. [id number] HEMOGLOBIN [id number] 00:00:00 Test Item Value Reference Range Interpretation Comments HEMOGLOBIN A1c (test code = 46842) 5.5 % HEMOGLOBIN [id number] 00:00:00 Test Item Value Reference Range Interpretation Comments HEMOGLOBIN A1c (test code = 89051) 5.5 % H. PYLORI (BREATH)2021-09-05 00:00:00 Test Item Value Reference Range Interpretation Comments H. PYLORI (BREATH) (test code = NEGATIVE 39138) LIPID [id number] 00:00:00 Test Item Value Reference Range Interpretation Comments CHOLESTEROL (test code = 2210) 138 MG/DL TRIGLYCERIDES (test code = 2232) 114 MG/DL HDL CHOLESTEROL (test code = 2220) 45 MG/DL CALC LDL CHOL (test code = 2237) 73 MG/DL RISK RATIO LDL/HDL (test code = 1.62 RATIO 2238) HEMOGLOBIN [id number] 00:00:00 Test Item Value Reference Range Interpretation Comments HEMOGLOBIN A1c (test code = 74994) 5.5 % H. PYLORI (BREATH)2021-09-05 00:00:00 Test Item Value Reference Range Interpretation Comments H. PYLORI (BREATH) (test code = NEGATIVE 69898) HEMOGLOBIN [id number] 00:00:00 Test Item Value Reference Range Interpretation Comments HEMOGLOBIN A1c (test code = 38649) 5.5 % H. PYLORI (BREATH)2021-09-05 00:00:00 Test Item Value Reference Range Interpretation Comments H. PYLORI (BREATH) (test code = NEGATIVE 26236) HEMOGLOBIN [id number] 00:00:00 Test Item Value Reference Range Interpretation Comments HEMOGLOBIN A1c (test code = 36736) 5.5 % HEMOGLOBIN [id number] 00:00:00 Test Item Value Reference Range Interpretation Comments HEMOGLOBIN A1c (test code = 25972) 5.5 % H. PYLORI (BREATH)2021-09-05 00:00:00 Test Item Value Reference Range Interpretation Comments H. PYLORI (BREATH) (test code = NEGATIVE 05086) LIPID [id number] 00:00:00 Test Item Value Reference Range Interpretation Comments CHOLESTEROL (test code = 2210) 138 MG/DL TRIGLYCERIDES (test code = 2232) 114 MG/DL HDL CHOLESTEROL (test code = 2220) 45 MG/DL CALC LDL CHOL (test code = 2237) 73 MG/DL RISK RATIO LDL/HDL (test code = 1.62 RATIO 2238) LIPID [id number] 00:00:00 Test Item Value Reference Range Interpretation Comments CHOLESTEROL (test code = 2210) 138 MG/DL TRIGLYCERIDES (test code = 2232) 114 MG/DL HDL CHOLESTEROL (test code = 2220) 45 MG/DL CALC LDL CHOL (test code = 2237) 73 MG/DL RISK RATIO LDL/HDL (test code = 1.62 RATIO 2238) HEMOGLOBIN [id number] 00:00:00 Test Item Value Reference Range Interpretation Comments HEMOGLOBIN A1c (test code = 02789) 5.5 % LIPID [id number] 00:00:00 Test Item Value Reference Range Interpretation Comments CHOLESTEROL (test code = 2210) 138 MG/DL TRIGLYCERIDES (test code = 2232) 114 MG/DL HDL CHOLESTEROL (test code = 2220) 45 MG/DL CALC LDL CHOL (test code = 2237) 73 MG/DL RISK RATIO LDL/HDL (test code = 1.62 RATIO 2238) HEMOGLOBIN [id number] 00:00:00 Test Item Value Reference Range Interpretation Comments HEMOGLOBIN A1c (test code = 29236) 5.5 % H. PYLORI (BREATH)2021-09-05 00:00:00 Test Item Value Reference Range Interpretation Comments H. PYLORI (BREATH) (test code = NEGATIVE 35566) HEMOGLOBIN [id number] 00:00:00 Test Item Value Reference Range Interpretation Comments HEMOGLOBIN A1c (test code = 90854) 5.5 % HEMOGLOBIN [id number] 00:00:00 Test Item Value Reference Range Interpretation Comments HEMOGLOBIN A1c (test code = 41023) 5.5 % H. PYLORI (BREATH)2021-09-05 00:00:00 Test Item Value Reference Range Interpretation Comments H. PYLORI (BREATH) (test code = NEGATIVE 53025) LIPID [id number] 00:00:00 Test Item Value Reference Range Interpretation Comments CHOLESTEROL (test code = 2210) 138 MG/DL TRIGLYCERIDES (test code = 2232) 114 MG/DL HDL CHOLESTEROL (test code = 2220) 45 MG/DL CALC LDL CHOL (test code = 2237) 73 MG/DL RISK RATIO LDL/HDL (test code = 1.62 RATIO 2238) LIPID [id number] 00:00:00 Test Item Value Reference Range Interpretation [...] H. PYLORI (BREATH) (test code = NEGATIVE 47211) HEMOGLOBIN [id number] 00:00:00 Test Item Value Reference Range Interpretation Comments HEMOGLOBIN A1c (test code = 26646) 5.5 % HEMOGLOBIN [id number] 00:00:00 Test Item Value Reference Range Interpretation Comments HEMOGLOBIN A1c (test code = 58278) 5.5 % H. PYLORI (BREATH)2021-09-05 00:00:00 Test Item Value Reference Range Interpretation Comments H. PYLORI (BREATH) (test code = NEGATIVE 89962) HEMOGLOBIN [id number] 00:00:00 Test Item Value Reference Range Interpretation Comments HEMOGLOBIN A1c (test code = 07852) 5.5 % LIPID [id number] 00:00:00 Test Item Value Reference Range Interpretation Comments CHOLESTEROL (test code = 2210) 138 MG/DL TRIGLYCERIDES (test code = 2232) 114 MG/DL HDL CHOLESTEROL (test code = 2220) 45 MG/DL CALC LDL CHOL (test code = 2237) 73 MG/DL RISK RATIO LDL/HDL (test code = 1.62 RATIO 2238) LIPID [id number] 00:00:00 Test Item Value Reference Range Interpretation Comments CHOLESTEROL (test code = 2210) 138 MG/DL TRIGLYCERIDES (test code = 2232) 114 MG/DL HDL CHOLESTEROL (test code = 2220) 45 MG/DL CALC LDL CHOL (test code = 2237) 73 MG/DL RISK RATIO LDL/HDL (test code = 1.62 RATIO 2238) HEMOGLOBIN [id number] 00:00:00 Test Item Value Reference Range Interpretation Comments HEMOGLOBIN A1c (test code = 01022) 5.5 % H. PYLORI (BREATH)2021-09-05 00:00:00 Test Item Value Reference Range Interpretation Comments H. PYLORI (BREATH) (test code = NEGATIVE 89414) H. PYLORI (BREATH)2021-09-05 00:00:00 Test Item Value Reference Range Interpretation Comments H. PYLORI (BREATH) (test code = NEGATIVE 76490) HEMOGLOBIN [id number] 00:00:00 Test Item Value Reference Range Interpretation Comments HEMOGLOBIN A1c (test code = 13892) 5.5 % HEMOGLOBIN [id number] 00:00:00 Test Item Value Reference Range Interpretation Comments HEMOGLOBIN A1c (test code = 24199) 5.5 % LIPID [id number] 00:00:00 Test Item Value Reference Range Interpretation Comments CHOLESTEROL (test code = 2210) 138 MG/DL TRIGLYCERIDES (test code = 2232) 114 MG/DL HDL CHOLESTEROL (test code = 2220) 45 MG/DL CALC LDL CHOL (test code = 2237) 73 MG/DL RISK RATIO LDL/HDL (test code = 1.62 RATIO 2238) LIPID [id number] 00:00:00 Test Item Value Reference Range Interpretation [...] H. PYLORI (BREATH) (test code = NEGATIVE 49227) H. PYLORI (BREATH)2021-09-05 00:00:00 Test Item Value Reference Range Interpretation Comments H. PYLORI (BREATH) (test code = NEGATIVE 14680) HEMOGLOBIN [id number] 00:00:00 Test Item Value Reference Range Interpretation Comments HEMOGLOBIN A1c (test code = 70905) 5.5 % HEMOGLOBIN [id number] 00:00:00 Test Item Value Reference Range Interpretation Comments HEMOGLOBIN A1c (test code = 85597) 5.5 % HEMOGLOBIN [id number] 00:00:00 Test Item Value Reference Range Interpretation Comments HEMOGLOBIN A1c (test code = 93181) 5.5 % LIPID [id number] 00:00:00 Test Item Value Reference Range Interpretation Comments CHOLESTEROL (test code = 2210) 138 MG/DL TRIGLYCERIDES (test code = 2232) 114 MG/DL HDL CHOLESTEROL (test code = 2220) 45 MG/DL CALC LDL CHOL (test code = 2237) 73 MG/DL RISK RATIO LDL/HDL (test code = 1.62 RATIO 2238) LIPID [id number] 00:00:00 Test Item Value Reference Range Interpretation [...] H. PYLORI (BREATH) (test code = NEGATIVE 18509) HEMOGLOBIN [id number] 00:00:00 Test Item Value Reference Range Interpretation Comments HEMOGLOBIN A1c (test code = 75245) 5.5 % HEMOGLOBIN [id number] 00:00:00 Test Item Value Reference Range Interpretation Comments HEMOGLOBIN A1c (test code = 18612) 5.5 % H. PYLORI (BREATH)2021-09-05 00:00:00 Test Item Value Reference Range Interpretation Comments H. PYLORI (BREATH) (test code = NEGATIVE 31668) HEMOGLOBIN [id number] 00:00:00 Test Item Value Reference Range Interpretation Comments HEMOGLOBIN A1c (test code = 14228) 5.5 % LIPID [id number] 00:00:00 Test Item Value Reference Range Interpretation Comments CHOLESTEROL (test code = 2210) 138 MG/DL TRIGLYCERIDES (test code = 2232) 114 MG/DL HDL CHOLESTEROL (test code = 2220) 45 MG/DL CALC LDL CHOL (test code = 2237) 73 MG/DL RISK RATIO LDL/HDL (test code = 1.62 RATIO 2238) LIPID [id number] 00:00:00 Test Item Value Reference Range Interpretation Comments CHOLESTEROL (test code = 2210) 138 MG/DL TRIGLYCERIDES (test code = 2232) 114 MG/DL HDL CHOLESTEROL (test code = 2220) 45 MG/DL CALC LDL CHOL (test code = 2237) 73 MG/DL RISK RATIO LDL/HDL (test code = 1.62 RATIO 2238) COMPREHENSIVE METABOLIC [id number] 05:52:46 Test Item Value Reference Range Interpretation Comments GLUCOSE (test code = 110 MG/DL 70-99 H 2216) BUN (test code = 12 MG/DL 6-20 2207) CREATININE (test 0.67 MG/DL 0.60-1.30 code = 221) eGFR (2020 CKD-EPI) 115 >60 (test code = 64993) ML/MIN/1.73 CALC BUN/CREAT (test 18 RATIO 6-28 [...] code = 28 U/L 5-40 2219) C-REACTIVE [id number] 05:52:34 Test Item Value Reference Range Interpretation Comments C-REACTIVE PROTEIN 4.8 MG/DL <0.5 H UNLESS O THERWISE (test code = 3513) INDICATED , ALL TESTING PERFORMED [facility] PATHOLOGY [facility], [facility]. [address] [place], [place] [id number] [place] [address] DIRECTOR: Devon REYIA NUMBER [id number] CAP ACCREDITATION N O. [id number] CBC W/AUTO DIFF WITH [id number] 04:54:28 Test Item Value Reference Range Interpretation [...] RBCS 0.00 K/UL 0.00-0.11 (test code = 82147) CBC W/AUTO [id number] 00:00:00 Test Item Value Reference Range Interpretation [...] NUCLEATED RBCS (test code = 0.00 K/UL 90133) CBC W/AUTO [id number] 00:00:00 Test Item Value Reference Range Interpretation [...] NUCLEATED RBCS (test code = 0.00 K/UL 78971) COMPREHENSIVE METABOLIC [id number] 00:00:00 Test Item Value Reference Range Interpretation Comments GLUCOSE (test code = 2217) 110 MG/DL BUN (test code = 2208) 12 MG/DL CREATININE (test code = 2214) 0.67 MG/DL eGFR (2020 CKD-EPI) (test 115 ML/MIN/1.73 code = 20473) CALC BUN/CREAT (test code = 18 RATIO [...] (test code = 2219) 28 U/L C-REACTIVE [id number] 00:00:00 Test Item Value Reference Range Interpretation Comments C-REACTIVE PROTEIN (test code = 4.8 MG/DL 3513) CBC W/AUTO [id number] 00:00:00 Test Item Value Reference Range Interpretation [...] NUCLEATED RBCS (test code = 0.00 K/UL 56309) CBC W/AUTO [id number] 00:00:00 Test Item Value Reference Range Interpretation [...] NUCLEATED RBCS (test code = 0.00 K/UL 50830) CBC W/AUTO [id number] 00:00:00 Test Item Value Reference Range Interpretation [...] NUCLEATED RBCS (test code = 0.00 K/UL 74727) CBC W/AUTO [id number] 00:00:00 Test Item Value Reference Range Interpretation [...] NUCLEATED RBCS (test code = 0.00 K/UL 56586) COMPREHENSIVE METABOLIC [id number] 00:00:00 Test Item Value Reference Range Interpretation Comments GLUCOSE (test code = 2217) 110 MG/DL BUN (test code = 2208) 12 MG/DL CREATININE (test code = 2214) 0.67 MG/DL eGFR (2020 CKD-EPI) (test 115 ML/MIN/1.73 code = 54293) CALC BUN/CREAT (test code = 18 RATIO [...] code = 2219) 28 U/L COMPREHENSIVE METABOLIC [id number] 00:00:00 Test Item Value Reference Range Interpretation Comments GLUCOSE (test code = 2217) 110 MG/DL BUN (test code = 2208) 12 MG/DL CREATININE (test code = 2214) 0.67 MG/DL eGFR (2020 CKD-EPI) (test 115 ML/MIN/1.73 code = 92501) CALC BUN/CREAT (test code = 18 RATIO [...] (test code = 2219) 28 U/L C-REACTIVE [id number] 00:00:00 Test Item Value Reference Range Interpretation Comments C-REACTIVE PROTEIN (test code = 4.8 MG/DL 3513) C-REACTIVE [id number] 00:00:00 Test Item Value Reference Range Interpretation Comments C-REACTIVE PROTEIN (test code = 4.8 MG/DL 3513) CBC W/AUTO [id number] 00:00:00 Test Item Value Reference Range Interpretation [...] NUCLEATED RBCS (test code = 0.00 K/UL 42111) CBC W/AUTO [id number] 00:00:00 Test Item Value Reference Range Interpretation [...] NUCLEATED RBCS (test code = 0.00 K/UL 03083) CBC W/AUTO [id number] 00:00:00 Test Item Value Reference Range Interpretation [...] NUCLEATED RBCS (test code = 0.00 K/UL 34656) COMPREHENSIVE METABOLIC [id number] 00:00:00 Test Item Value Reference Range Interpretation Comments GLUCOSE (test code = 2217) 110 MG/DL BUN (test code = 2208) 12 MG/DL CREATININE (test code = 2214) 0.67 MG/DL eGFR (2020 CKD-EPI) (test 115 ML/MIN/1.73 code = 08720) CALC BUN/CREAT (test code = 18 RATIO [...] code = 2219) 28 U/L CBC W/AUTO [id number] 00:00:00 Test Item Value Reference Range Interpretation [...] NUCLEATED RBCS (test code = 0.00 K/UL 79364) COMPREHENSIVE METABOLIC [id number] 00:00:00 Test Item Value Reference Range Interpretation Comments GLUCOSE (test code = 2217) 110 MG/DL BUN (test code = 2208) 12 MG/DL CREATININE (test code = 2214) 0.67 MG/DL eGFR (2020 CKD-EPI) (test 115 ML/MIN/1.73 code = 32289) CALC BUN/CREAT (test code = 18 RATIO [...] code = 2219) 28 U/L COMPREHENSIVE METABOLIC [id number] 00:00:00 Test Item Value Reference Range Interpretation Comments GLUCOSE (test code = 2217) 110 MG/DL BUN (test code = 2208) 12 MG/DL CREATININE (test code = 2214) 0.67 MG/DL eGFR (2020 CKD-EPI) (test 115 ML/MIN/1.73 code = 03370) CALC BUN/CREAT (test code = 18 RATIO [...] (test code = 2219) 28 U/L C-REACTIVE [id number] 00:00:00 Test Item Value Reference Range Interpretation Comments C-REACTIVE PROTEIN (test code = 4.8 MG/DL 3513) C-REACTIVE [id number] 00:00:00 Test Item Value Reference Range Interpretation Comments C-REACTIVE PROTEIN (test code = 4.8 MG/DL 3513) C-REACTIVE [id number] 00:00:00 Test Item Value Reference Range Interpretation Comments C-REACTIVE PROTEIN (test code = 4.8 MG/DL 3513) CBC W/AUTO [id number] 00:00:00 Test Item Value Reference Range Interpretation [...] NUCLEATED RBCS (test code = 0.00 K/UL 10903) CBC W/AUTO [id number] 00:00:00 Test Item Value Reference Range Interpretation [...] NUCLEATED RBCS (test code = 0.00 K/UL 14052) CBC W/AUTO [id number] 00:00:00 Test Item Value Reference Range Interpretation [...] NUCLEATED RBCS (test code = 0.00 K/UL 10959) COMPREHENSIVE METABOLIC [id number] 00:00:00 Test Item Value Reference Range Interpretation Comments GLUCOSE (test code = 2217) 110 MG/DL BUN (test code = 2208) 12 MG/DL CREATININE (test code = 2214) 0.67 MG/DL eGFR (2020 CKD-EPI) (test 115 ML/MIN/1.73 code = 57733) CALC BUN/CREAT (test code = 18 RATIO [...] code = 2219) 28 U/L COMPREHENSIVE METABOLIC [id number] 00:00:00 Test Item Value Reference Range Interpretation Comments GLUCOSE (test code = 2217) 110 MG/DL BUN (test code = 2208) 12 MG/DL CREATININE (test code = 2214) 0.67 MG/DL eGFR (2020 CKD-EPI) (test 115 ML/MIN/1.73 code = 86003) CALC BUN/CREAT (test code = 18 RATIO [...] (test code = 2219) 28 U/L C-REACTIVE [id number] 00:00:00 Test Item Value Reference Range Interpretation Comments C-REACTIVE PROTEIN (test code = 4.8 MG/DL 3513) C-REACTIVE [id number] 00:00:00 Test Item Value Reference Range Interpretation Comments C-REACTIVE PROTEIN (test code = 4.8 MG/DL 3513) CBC W/AUTO [id number] 00:00:00 Test Item Value Reference Range Interpretation [...] NUCLEATED RBCS (test code = 0.00 K/UL 51008) CBC W/AUTO [id number] 00:00:00 Test Item Value Reference Range Interpretation [...] NUCLEATED RBCS (test code = 0.00 K/UL 59873) CBC W/AUTO [id number] 00:00:00 Test Item Value Reference Range Interpretation [...] NUCLEATED RBCS (test code = 0.00 K/UL 70367) COMPREHENSIVE METABOLIC [id number] 00:00:00 Test Item Value Reference Range Interpretation Comments GLUCOSE (test code = 2217) 110 MG/DL BUN (test code = 2208) 12 MG/DL CREATININE (test code = 2214) 0.67 MG/DL eGFR (2020 CKD-EPI) (test 115 ML/MIN/1.73 code = 89440) CALC BUN/CREAT (test code = 18 RATIO [...] code = 2219) 28 U/L COMPREHENSIVE METABOLIC [id number] 00:00:00 Test Item Value Reference Range Interpretation Comments GLUCOSE (test code = 2217) 110 MG/DL BUN (test code = 2208) 12 MG/DL CREATININE (test code = 2214) 0.67 MG/DL eGFR (2020 CKD-EPI) (test 115 ML/MIN/1.73 code = 16042) CALC BUN/CREAT (test code = 18 RATIO [...] (test code = 2219) 28 U/L C-REACTIVE [id number] 00:00:00 Test Item Value Reference Range Interpretation Comments C-REACTIVE PROTEIN (test code = 4.8 MG/DL 3513) C-REACTIVE [id number] 00:00:00 Test Item Value Reference Range Interpretation Comments C-REACTIVE PROTEIN (test code = 4.8 MG/DL 3513) CBC W/AUTO [id number] 00:00:00 Test Item Value Reference Range Interpretation [...] NUCLEATED RBCS (test code = 0.00 K/UL 13579) CBC W/AUTO [id number] 00:00:00 Test Item Value Reference Range Interpretation [...] NUCLEATED RBCS (test code = 0.00 K/UL 15590) CBC W/AUTO [id number] 00:00:00 Test Item Value Reference Range Interpretation [...] NUCLEATED RBCS (test code = 0.00 K/UL 01983) COMPREHENSIVE METABOLIC [id number] 00:00:00 Test Item Value Reference Range Interpretation Comments GLUCOSE (test code = 2217) 110 MG/DL BUN (test code = 2208) 12 MG/DL CREATININE (test code = 2214) 0.67 MG/DL eGFR (2020 CKD-EPI) (test 115 ML/MIN/1.73 code = 91944) CALC BUN/CREAT (test code = 18 RATIO [...] code = 2219) 28 U/L COMPREHENSIVE METABOLIC [id number] 00:00:00 Test Item Value Reference Range Interpretation Comments GLUCOSE (test code = 2217) 110 MG/DL BUN (test code = 2208) 12 MG/DL CREATININE (test code = 2214) 0.67 MG/DL eGFR (2020 CKD-EPI) (test 115 ML/MIN/1.73 code = 45913) CALC BUN/CREAT (test code = 18 RATIO [...] (test code = 2219) 28 U/L C-REACTIVE [id number] 00:00:00 Test Item Value Reference Range Interpretation Comments C-REACTIVE PROTEIN (test code = 4.8 MG/DL 3513) C-REACTIVE [id number] 00:00:00 Test Item Value Reference Range Interpretation Comments C-REACTIVE PROTEIN (test code = 4.8 MG/DL 3513) CBC W/AUTO [id number] 00:00:00 Test Item Value Reference Range Interpretation [...] NUCLEATED RBCS (test code = 0.00 K/UL 69193) CBC W/AUTO [id number] 00:00:00 Test Item Value Reference Range Interpretation [...] NUCLEATED RBCS (test code = 0.00 K/UL 85942) CBC W/AUTO [id number] 00:00:00 Test Item Value Reference Range Interpretation [...] NUCLEATED RBCS (test code = 0.00 K/UL 83111) COMPREHENSIVE METABOLIC [id number] 00:00:00 Test Item Value Reference Range Interpretation Comments GLUCOSE (test code = 2217) 110 MG/DL BUN (test code = 2208) 12 MG/DL CREATININE (test code = 2214) 0.67 MG/DL eGFR (2020 CKD-EPI) (test 115 ML/MIN/1.73 code = 50770) CALC BUN/CREAT (test code = 18 RATIO [...] code = 2219) 28 U/L COMPREHENSIVE METABOLIC [id number] 00:00:00 Test Item Value Reference Range Interpretation Comments GLUCOSE (test code = 2217) 110 MG/DL BUN (test code = 2208) 12 MG/DL CREATININE (test code = 2214) 0.67 MG/DL eGFR (2020 CKD-EPI) (test 115 ML/MIN/1.73 code = 37473) CALC BUN/CREAT (test code = 18 RATIO [...] (test code = 2219) 28 U/L C-REACTIVE [id number] 00:00:00 Test Item Value Reference Range Interpretation Comments C-REACTIVE PROTEIN (test code = 4.8 MG/DL 3513) C-REACTIVE [id number] 00:00:00 Test Item Value Reference Range Interpretation Comments C-REACTIVE PROTEIN (test code = 4.8 MG/DL 3513) CBC W/AUTO DIFF WITH [id number] 03:06:39 Test Item Value Reference Range Interpretation [...] message] code = 1065) WBC'S The system [employer] generated this result transmitted ref erence range: [...] 0.00-0.11 UNLESS O THERWISE (test code = 85448) INDICATE D, ALL TESTING PERFORM [facility] [place] [address] [place] [address] [facility] DIRECTOR: LUIZ STUBBS M.D. CLIA NUMBER [id number] CAP ACCREDITATION N O. [id number] CBC W/AUTO [id number] 00:00:00 Test Item Value Reference Range Interpretation [...] NUCLEATED RBCS (test code = 0.00 K/UL 91987) CBC W/AUTO [id number] 00:00:00 Test Item Value Reference Range Interpretation [...] NUCLEATED RBCS (test code = 0.00 K/UL 33881) CBC W/AUTO [id number] 00:00:00 Test Item Value Reference Range Interpretation [...] NUCLEATED RBCS (test code = 0.00 K/UL 78741) CBC W/AUTO [id number] 00:00:00 Test Item Value Reference Range Interpretation [...] NUCLEATED RBCS (test code = 0.00 K/UL 42182) CBC W/AUTO [id number] 00:00:00 Test Item Value Reference Range Interpretation [...] NUCLEATED RBCS (test code = 0.00 K/UL 62610) CBC W/AUTO [id number] 00:00:00 Test Item Value Reference Range Interpretation [...] NUCLEATED RBCS (test code = 0.00 K/UL 54071) CBC W/AUTO [id number] 00:00:00 Test Item Value Reference Range Interpretation [...] NUCLEATED RBCS (test code = 0.00 K/UL 02724) CBC W/AUTO [id number] 00:00:00 Test Item Value Reference Range Interpretation [...] NUCLEATED RBCS (test code = 0.00 K/UL 62893) CBC W/AUTO [id number] 00:00:00 Test Item Value Reference Range Interpretation [...] NUCLEATED RBCS (test code = 0.00 K/UL 18190) CBC W/AUTO [id number] 00:00:00 Test Item Value Reference Range Interpretation [...] NUCLEATED RBCS (test code = 0.00 K/UL 50363) CBC W/AUTO [id number] 00:00:00 Test Item Value Reference Range Interpretation [...] NUCLEATED RBCS (test code = 0.00 K/UL 34120) CBC W/AUTO [id number] 00:00:00 Test Item Value Reference Range Interpretation [...] NUCLEATED RBCS (test code = 0.00 K/UL 04681) CBC W/AUTO [id number] 00:00:00 Test Item Value Reference Range Interpretation [...] NUCLEATED RBCS (test code = 0.00 K/UL 72570) CBC W/AUTO [id number] 00:00:00 Test Item Value Reference Range Interpretation [...] NUCLEATED RBCS (test code = 0.00 K/UL 06883) CBC W/AUTO [id number] 00:00:00 Test Item Value Reference Range Interpretation [...] NUCLEATED RBCS (test code = 0.00 K/UL 32282) CBC W/AUTO [id number] 00:00:00 Test Item Value Reference Range Interpretation [...] NUCLEATED RBCS (test code = 0.00 K/UL 57880) CBC W/AUTO [id number] 00:00:00 Test Item Value Reference Range Interpretation [...] NUCLEATED RBCS (test code = 0.00 K/UL 80173) CBC W/AUTO [id number] 00:00:00 Test Item Value Reference Range Interpretation [...] NUCLEATED RBCS (test code = 0.00 K/UL 65834) CBC W/AUTO [id number] 00:00:00 Test Item Value Reference Range Interpretation [...] NUCLEATED RBCS (test code = 0.00 K/UL 89581) CBC W/AUTO [id number] 00:00:00 Test Item Value Reference Range Interpretation [...] NUCLEATED RBCS (test code = 0.00 K/UL 64707) CBC W/AUTO [id number] 00:00:00 Test Item Value Reference Range Interpretation [...] NUCLEATED RBCS (test code = 0.00 K/UL 64528) CBC W/AUTO [id number] 00:00:00 Test Item Value Reference Range Interpretation [...] NUCLEATED RBCS (test code = 0.00 K/UL 63240) CBC W/AUTO DIFF WITH [id number] 12:11:11 Test Item Value Reference Range Interpretation [...] RBCS TEST NOT 0.00-0.11 (test code = 62224) PERFORMED K/UL COMMENTS (test code = TEST NOT 1016) PERFORMED CBC W/AUTO [id number] 00:00:00 Test Item Value Reference Range Interpretation [...] RBCS (test TEST NOT PERFORMED code = 81152) K/UL COMMENTS (test code = TEST NOT PERFORMED 1016) CBC W/AUTO [id number] 00:00:00 Test Item Value Reference Range Interpretation [...] RBCS (test TEST NOT PERFORMED code = 08156) K/UL COMMENTS (test code = TEST NOT PERFORMED 1016) CBC W/AUTO [id number] 00:00:00 Test Item Value Reference Range Interpretation [...] RBCS (test TEST NOT PERFORMED code = 75538) K/UL COMMENTS (test code = TEST NOT PERFORMED 1016) CBC W/AUTO [id number] 00:00:00 Test Item Value Reference Range Interpretation [...] RBCS (test TEST NOT PERFORMED code = 42916) K/UL COMMENTS (test code = TEST NOT PERFORMED 1016) CBC W/AUTO [id number] 00:00:00 Test Item Value Reference Range Interpretation [...] RBCS (test TEST NOT PERFORMED code = 27770) K/UL COMMENTS (test code = TEST NOT PERFORMED 1016) CBC W/AUTO [id number] 00:00:00 Test Item Value Reference Range Interpretation [...] RBCS (test TEST NOT PERFORMED code = 32988) K/UL COMMENTS (test code = TEST NOT PERFORMED 1016) CBC W/AUTO [id number] 00:00:00 Test Item Value Reference Range Interpretation [...] RBCS (test TEST NOT PERFORMED code = 03740) K/UL COMMENTS (test code = TEST NOT PERFORMED 1016) CBC W/AUTO [id number] 00:00:00 Test Item Value Reference Range Interpretation [...] RBCS (test TEST NOT PERFORMED code = 05974) K/UL COMMENTS (test code = TEST NOT PERFORMED 1016) CBC W/AUTO [id number] 00:00:00 Test Item Value Reference Range Interpretation [...] RBCS (test TEST NOT PERFORMED code = 84287) K/UL COMMENTS (test code = TEST NOT PERFORMED 1016) CBC W/AUTO [id number] 00:00:00 Test Item Value Reference Range Interpretation [...] RBCS (test TEST NOT PERFORMED code = 62472) K/UL COMMENTS (test code = TEST NOT PERFORMED 1016) CBC W/AUTO [id number] 00:00:00 Test Item Value Reference Range Interpretation [...] RBCS (test TEST NOT PERFORMED code = 68554) K/UL COMMENTS (test code = TEST NOT PERFORMED 1016) CBC W/AUTO [id number] 00:00:00 Test Item Value Reference Range Interpretation [...] RBCS (test TEST NOT PERFORMED code = 62939) K/UL COMMENTS (test code = TEST NOT PERFORMED 1016) CBC W/AUTO [id number] 00:00:00 Test Item Value Reference Range Interpretation [...] RBCS (test TEST NOT PERFORMED code = 74038) K/UL COMMENTS (test code = TEST NOT PERFORMED 1016) CBC W/AUTO [id number] 00:00:00 Test Item Value Reference Range Interpretation [...] RBCS (test TEST NOT PERFORMED code = 45960) K/UL COMMENTS (test code = TEST NOT PERFORMED 1016) CBC W/AUTO [id number] 00:00:00 Test Item Value Reference Range Interpretation [...] RBCS (test TEST NOT PERFORMED code = 24576) K/UL COMMENTS (test code = TEST NOT PERFORMED 1016) CBC W/AUTO [id number] 00:00:00 Test Item Value Reference Range Interpretation [...] RBCS (test TEST NOT PERFORMED code = 72985) K/UL COMMENTS (test code = TEST NOT PERFORMED 1016) CBC W/AUTO [id number] 00:00:00 Test Item Value Reference Range Interpretation [...] RBCS (test TEST NOT PERFORMED code = 24046) K/UL COMMENTS (test code = TEST NOT PERFORMED 1016) CBC W/AUTO [id number] 00:00:00 Test Item Value Reference Range Interpretation [...] RBCS (test TEST NOT PERFORMED code = 05009) K/UL COMMENTS (test code = TEST NOT PERFORMED 1016) CBC W/AUTO [id number] 00:00:00 Test Item Value Reference Range Interpretation [...] RBCS (test TEST NOT PERFORMED code = 95778) K/UL COMMENTS (test code = TEST NOT PERFORMED 1016) CBC W/AUTO [id number] 00:00:00 Test Item Value Reference Range Interpretation [...] RBCS (test TEST NOT PERFORMED code = 59284) K/UL COMMENTS (test code = TEST NOT PERFORMED 1016) CBC W/AUTO [id number] 00:00:00 Test Item Value Reference Range Interpretation [...] RBCS (test TEST NOT PERFORMED code = 32003) K/UL COMMENTS (test code = TEST NOT PERFORMED 1016) CBC W/AUTO [id number] 00:00:00 Test Item Value Reference Range Interpretation [...] RBCS (test TEST NOT PERFORMED code = 27545) K/UL COMMENTS (test code = TEST NOT PERFORMED 1016) COMPREHENSIVE METABOLIC [id number] 04:59:13 Test Item Value Reference Range Interpretation Comments GLUCOSE (test code = 99 MG/DL 70-99 2216) BUN (test code = 14 MG/DL 6-20 2207) CREATININE (test 0.78 MG/DL 0.60-1.30 code = 2214) eGFR (2020 CKD-EPI) 100 >60 (test code = 84012) ML/MIN/1.73 CALC BUN/CREAT (test 18 RATIO 6-28 code = 2235) SODIUM (test code = 146 MEQ/L 443-906 6117) POTASSIUM (test code 4.9 MEQ/L 3.5-5.4 = [...] PHOSPHATASE 77 U/L 40-112 (test code = 2204) AST (test code = 29 U/L 9-40 2217) ALT (test code = 26 U/L 5-40 UNLESS OTH ERWISE 2218) INDICATED, ALL TESTING PERFORM ED [facility], [facility]. [address] [place] [address] [facility] DIRECTOR: LUIZ STUBBS M.D. CLIA NUMBER [id number] CAP ACCREDITATION N O. [id number] COMPREHENSIVE METABOLIC [id number] 00:00:00 Test Item Value Reference Range Interpretation Comments GLUCOSE (test code = 2217) 99 MG/DL BUN (test code = 2208) 14 MG/DL CREATININE (test code = 2214) 0.78 MG/DL eGFR (2020 CKD-EPI) (test 100 ML/MIN/1.73 code = 83573) CALC BUN/CREAT (test code = 18 RATIO [...] code = 2219) 26 U/L COMPREHENSIVE METABOLIC [id number] 00:00:00 Test Item Value Reference Range Interpretation Comments GLUCOSE (test code = 2217) 99 MG/DL BUN (test code = 2208) 14 MG/DL CREATININE (test code = 2214) 0.78 MG/DL eGFR (2020 CKD-EPI) (test 100 ML/MIN/1.73 code = 01906) CALC BUN/CREAT (test code = 18 RATIO [...] code = 2219) 26 U/L COMPREHENSIVE METABOLIC [id number] 00:00:00 Test Item Value Reference Range Interpretation Comments GLUCOSE (test code = 2217) 99 MG/DL BUN (test code = 2208) 14 MG/DL CREATININE (test code = 2214) 0.78 MG/DL eGFR (2020 CKD-EPI) (test 100 ML/MIN/1.73 code = 92511) CALC BUN/CREAT (test code = 18 RATIO [...] code = 2219) 26 U/L COMPREHENSIVE METABOLIC [id number] 00:00:00 Test Item Value Reference Range Interpretation Comments GLUCOSE (test code = 2217) 99 MG/DL BUN (test code = 2208) 14 MG/DL CREATININE (test code = 2214) 0.78 MG/DL eGFR (2020 CKD-EPI) (test 100 ML/MIN/1.73 code = 40398) CALC BUN/CREAT (test code = 18 RATIO [...] code = 2219) 26 U/L COMPREHENSIVE METABOLIC [id number] 00:00:00 Test Item Value Reference Range Interpretation Comments GLUCOSE (test code = 2217) 99 MG/DL BUN (test code = 2208) 14 MG/DL CREATININE (test code = 2214) 0.78 MG/DL eGFR (2020 CKD-EPI) (test 100 ML/MIN/1.73 code = 10622) CALC BUN/CREAT (test code = 18 RATIO [...] code = 2219) 26 U/L COMPREHENSIVE METABOLIC [id number] 00:00:00 Test Item Value Reference Range Interpretation Comments GLUCOSE (test code = 2217) 99 MG/DL BUN (test code = 2208) 14 MG/DL CREATININE (test code = 2214) 0.78 MG/DL eGFR (2020 CKD-EPI) (test 100 ML/MIN/1.73 code = 06253) CALC BUN/CREAT (test code = 18 RATIO [...] code = 2219) 26 U/L COMPREHENSIVE METABOLIC [id number] 00:00:00 Test Item Value Reference Range Interpretation Comments GLUCOSE (test code = 2217) 99 MG/DL BUN (test code = 2208) 14 MG/DL CREATININE (test code = 2214) 0.78 MG/DL eGFR (2020 CKD-EPI) (test 100 ML/MIN/1.73 code = 75120) CALC BUN/CREAT (test code = 18 RATIO [...] code = 2219) 26 U/L COMPREHENSIVE METABOLIC [id number] 00:00:00 Test Item Value Reference Range Interpretation Comments GLUCOSE (test code = 2217) 99 MG/DL BUN (test code = 2208) 14 MG/DL CREATININE (test code = 2214) 0.78 MG/DL eGFR (2020 CKD-EPI) (test 100 ML/MIN/1.73 code = 24693) CALC BUN/CREAT (test code = 18 RATIO [...] code = 2219) 26 U/L COMPREHENSIVE METABOLIC [id number] 00:00:00 Test Item Value Reference Range Interpretation Comments GLUCOSE (test code = 2217) 99 MG/DL BUN (test code = 2208) 14 MG/DL CREATININE (test code = 2214) 0.78 MG/DL eGFR (2020 CKD-EPI) (test 100 ML/MIN/1.73 code = 21190) CALC BUN/CREAT (test code = 18 RATIO [...] code = 2219) 26 U/L COMPREHENSIVE METABOLIC [id number] 00:00:00 Test Item Value Reference Range Interpretation Comments GLUCOSE (test code = 2217) 99 MG/DL BUN (test code = 2208) 14 MG/DL CREATININE (test code = 2214) 0.78 MG/DL eGFR (2020 CKD-EPI) (test 100 ML/MIN/1.73 code = 67575) CALC BUN/CREAT (test code = 18 RATIO [...] code = 2219) 26 U/L COMPREHENSIVE METABOLIC [id number] 00:00:00 Test Item Value Reference Range Interpretation Comments GLUCOSE (test code = 2217) 99 MG/DL BUN (test code = 2208) 14 MG/DL CREATININE (test code = 2214) 0.78 MG/DL eGFR (2020 CKD-EPI) (test 100 ML/MIN/1.73 code = 31613) CALC BUN/CREAT (test code = 18 RATIO [...] code = 2219) 26 U/L COMPREHENSIVE METABOLIC [id number] 00:00:00 Test Item Value Reference Range Interpretation Comments GLUCOSE (test code = 2217) 99 MG/DL BUN (test code = 2208) 14 MG/DL CREATININE (test code = 2214) 0.78 MG/DL eGFR (2020 CKD-EPI) (test 100 ML/MIN/1.73 code = 08226) CALC BUN/CREAT (test code = 18 RATIO [...] code = 2219) 26 U/L COMPREHENSIVE METABOLIC [id number] 00:00:00 Test Item Value Reference Range Interpretation Comments GLUCOSE (test code = 2217) 99 MG/DL BUN (test code = 2208) 14 MG/DL CREATININE (test code = 2214) 0.78 MG/DL eGFR (2020 CKD-EPI) (test 100 ML/MIN/1.73 code = 94928) CALC BUN/CREAT (test code = 18 RATIO [...] code = 2219) 26 U/L COMPREHENSIVE METABOLIC [id number] 00:00:00 Test Item Value Reference Range Interpretation Comments GLUCOSE (test code = 2217) 99 MG/DL BUN (test code = 2208) 14 MG/DL CREATININE (test code = 2214) 0.78 MG/DL eGFR (2020 CKD-EPI) (test 100 ML/MIN/1.73 code = 58198) CALC BUN/CREAT (test code = 18 RATIO [...] CALC GLOBULIN (test code = 3.9 G/DL 0) CALC A/G RATIO (test code = 1.1 RATIO 4) BILIRUBIN, TOTAL (test code = 0.6 MG/DL 2206) ALKALINE PHOSPHATASE (test 77 U/L code = 2204) AST (test code = 2218) 29 U/L ALT (test code = 2219) 26 U/L POCT [id number] 21:38:00 Test Item Value Reference Range Interpretation Comments POCT PREG (test code = 1605) negative On board controls acceptable with present C Line (test code = 3574) POCT PREG LOT # (test code = 3575) [id number] POCT PREG TEST DATE (test 03/15/22 code = 3576) Lab Interpretation (test code = Normal 23134-8) [facility] 2020-02-08 00:00:00 Test Item Value Reference Range Interpretation Comments SARS-CoV-2 INTERPRETATION Negative (test code = 58419) SOURCE (test code = 99477) NASOPHARYNGEAL_SWAB _IN_VTM__UTM SARS-CoV-2 (COVID-19) by RT-PCR (HIGH RISK)2020-02-08 00:00:00 Test Item Value Reference Range Interpretation Comments SARS-CoV-2 INTERPRETATION Negative (test code = 43316) SOURCE (test code = 97966) NASOPHARYNGEAL_SWAB _IN_VTM__UTM SARS-CoV-2 (COVID-19) by RT-PCR (HIGH RISK)2020-02-08 00:00:00 Test Item Value Reference Range Interpretation Comments SARS-CoV-2 INTERPRETATION Negative (test code = 83520) SOURCE (test code = 16468) NASOPHARYNGEAL_SWAB _IN_VTM__UTM SARS-CoV-2 (COVID-19) by RT-PCR (HIGH RISK)2020-02-08 00:00:00 Test Item Value Reference Range Interpretation Comments SARS-CoV-2 INTERPRETATION Negative (test code = 35469) SOURCE (test code = 24726) NASOPHARYNGEAL_SWAB _IN_VTM__UTM SARS-CoV-2 (COVID-19) by RT-PCR (HIGH RISK)2020-02-08 00:00:00 Test Item Value Reference Range Interpretation Comments SARS-CoV-2 INTERPRETATION Negative (test code = 94317) SOURCE (test code = 08311) NASOPHARYNGEAL_SWAB _IN_VTM__UTM SARS-CoV-2 (COVID-19) by RT-PCR (HIGH RISK)2020-02-08 00:00:00 Test Item Value Reference Range Interpretation Comments SARS-CoV-2 INTERPRETATION Negative (test code = 04951) SOURCE (test code = 24916) NASOPHARYNGEAL_SWAB _IN_VTM__UTM SARS-CoV-2 (COVID-19) by RT-PCR (HIGH RISK)2020-02-08 00:00:00 Test Item Value Reference Range Interpretation Comments SARS-CoV-2 INTERPRETATION Negative (test code = 90436) SOURCE (test code = 54985) NASOPHARYNGEAL_SWAB _IN_VTM__UTM SARS-CoV-2 (COVID-19) by RT-PCR (HIGH RISK)2020-02-08 00:00:00 Test Item Value Reference Range Interpretation Comments SARS-CoV-2 INTERPRETATION Negative (test code = 51321) SOURCE (test code = 09116) NASOPHARYNGEAL_SWAB _IN_VTM__UTM QUANTIFERON TB GOLD PLUS [ADDED]2019-10-14 00:00:00 Test Item Value Reference Range Interpretation Comments QUANTIFERON TB GOLD PLUS (test NEGATIVE code = 78063) TB1-NIL (test code = 17001) 0.00 IU/ML TB2-NIL (test code = 47080) -0.01 IU/ML MITOGEN-NIL (test code = 04673) 7.87 IU/ML NIL (test code = 81812) 0.02 IU/ML QUANTIFERON TB GOLD PLUS [ADDED]2019-10-14 00:00:00 Test Item Value Reference Range Interpretation Comments QUANTIFERON TB GOLD PLUS (test NEGATIVE code = 06919) TB1-NIL (test code = 88836) 0.00 IU/ML TB2-NIL (test code = 44481) -0.01 IU/ML MITOGEN-NIL (test code = 07983) 7.87 IU/ML NIL (test code = 86318) 0.02 IU/ML QUANTIFERON TB GOLD PLUS [ADDED]2019-10-14 00:00:00 Test Item Value Reference Range Interpretation Comments QUANTIFERON TB GOLD PLUS (test NEGATIVE code = 92276) TB1-NIL (test code = 19628) 0.00 IU/ML TB2-NIL (test code = 24400) -0.01 IU/ML MITOGEN-NIL (test code = 08656) 7.87 IU/ML NIL (test code = 04331) 0.02 IU/ML QUANTIFERON TB GOLD PLUS [ADDED]2019-10-14 00:00:00 Test Item Value Reference Range Interpretation Comments QUANTIFERON TB GOLD PLUS (test NEGATIVE code = 74817) TB1-NIL (test code = 13060) 0.00 IU/ML TB2-NIL (test code = 53192) -0.01 IU/ML MITOGEN-NIL (test code = 74258) 7.87 IU/ML NIL (test code = 58986) 0.02 IU/ML QUANTIFERON TB GOLD PLUS [ADDED]2019-10-14 00:00:00 Test Item Value Reference Range Interpretation Comments QUANTIFERON TB GOLD PLUS (test NEGATIVE code = 87975) TB1-NIL (test code = 22900) 0.00 IU/ML TB2-NIL (test code = 90894) -0.01 IU/ML MITOGEN-NIL (test code = 31152) 7.87 IU/ML NIL (test code = 65474) 0.02 IU/ML QUANTIFERON TB GOLD PLUS [ADDED]2019-10-14 00:00:00 Test Item Value Reference Range Interpretation Comments QUANTIFERON TB GOLD PLUS (test NEGATIVE code = 29409) TB1-NIL (test code = 29729) 0.00 IU/ML TB2-NIL (test code = 03261) -0.01 IU/ML MITOGEN-NIL (test code = 81076) 7.87 IU/ML NIL (test code = 18005) 0.02 IU/ML QUANTIFERON TB GOLD PLUS [ADDED]2019-10-14 00:00:00 Test Item Value Reference Range Interpretation Comments QUANTIFERON TB GOLD PLUS (test NEGATIVE code = 55119) TB1-NIL (test code = 57696) 0.00 IU/ML TB2-NIL (test code = 85868) -0.01 IU/ML MITOGEN-NIL (test code = 11360) 7.87 IU/ML NIL (test code = 43079) 0.02 IU/ML QUANTIFERON TB GOLD PLUS [ADDED]2019-10-14 00:00:00 Test Item Value Reference Range Interpretation Comments QUANTIFERON TB GOLD PLUS (test NEGATIVE code = 30750) TB1-NIL (test code = 46900) 0.00 IU/ML TB2-NIL (test code = 49140) -0.01 IU/ML MITOGEN-NIL (test code = 88189) 7.87 IU/ML NIL (test code = 65502) 0.02 IU/ML CBC W/AUTO [id number] 00:00:00 Test Item Value Reference Range Interpretation [...] code = 1015) 283 K/UL CBC W/AUTO [id number] 00:00:00 Test Item Value Reference Range Interpretation [...] code = 1015) 283 K/UL COMPREHENSIVE METABOLIC [id number] 00:00:00 Test Item Value Reference Range Interpretation Comments GLUCOSE (test code = 2217) 101 MG/DL BUN (test code = 2208) 9 MG/DL CREATININE (test code = 2214) 0.59 MG/DL eGFR AMER. (test code 138 ML/MIN/1.73 = 28175) eGFR NON- AMER. (test 119 ML/MIN/1.73 code = 78242) CALC BUN/CREAT (test code = 15 RATIO [...] code = 2219) 35 U/L ACUTE HEPATITIS [id number] 00:00:00 Test Item Value Reference Range Interpretation Comments HEPATITIS A IgM (test code = NON-REACTIVE 83894) HEPATITIS B CORE IgM (test code NON-REACTIVE = 9744) HEPATITIS B SURF AG (test code = NON-REACTIVE 5077) HEPATITIS C ANTIBODY (test code NON-REACTIVE = 0350) INTERPRETATION HEPATITIS A: (NOTE) (test code = 2552) INTERPRETATION HEPATITIS B: (NOTE) (test code = 33909) INTERPRETATION HEPATITIS C: (NOTE) (test code = 06119) CBC W/AUTO [id number] 00:00:00 Test Item Value Reference Range Interpretation [...] code = 1015) 283 K/UL CBC W/AUTO [id number] 00:00:00 Test Item Value Reference Range Interpretation [...] code = 1015) 283 K/UL CBC W/AUTO [id number] 00:00:00 Test Item Value Reference Range Interpretation [...] code = 1015) 283 K/UL CBC W/AUTO [id number] 00:00:00 Test Item Value Reference Range Interpretation [...] code = 1015) 283 K/UL COMPREHENSIVE METABOLIC [id number] 00:00:00 Test Item Value Reference Range Interpretation Comments GLUCOSE (test code = 2217) 101 MG/DL BUN (test code = 2208) 9 MG/DL CREATININE (test code = 2214) 0.59 MG/DL eGFR AMER. (test code 138 ML/MIN/1.73 = 06354) eGFR NON- AMER. (test 119 ML/MIN/1.73 code = 72843) CALC BUN/CREAT (test code = 15 RATIO [...] code = 2219) 35 U/L COMPREHENSIVE METABOLIC [id number] 00:00:00 Test Item Value Reference Range Interpretation Comments GLUCOSE (test code = 2217) 101 MG/DL BUN (test code = 2208) 9 MG/DL CREATININE (test code = 2214) 0.59 MG/DL eGFR AMER. (test code 138 ML/MIN/1.73 = 44566) eGFR NON- AMER. (test 119 ML/MIN/1.73 code = 82792) CALC BUN/CREAT (test code = 15 RATIO [...] code = 2219) 35 U/L ACUTE HEPATITIS [id number] 00:00:00 Test Item Value Reference Range Interpretation Comments HEPATITIS A IgM (test code = NON-REACTIVE 91362) HEPATITIS B CORE IgM (test code NON-REACTIVE = 4644) HEPATITIS B SURF AG (test code = NON-REACTIVE 2738) HEPATITIS C ANTIBODY (test code NON-REACTIVE = 4675) INTERPRETATION HEPATITIS A: (NOTE) (test code = 2552) INTERPRETATION HEPATITIS B: (NOTE) (test code = 85310) INTERPRETATION HEPATITIS C: (NOTE) (test code = 53805) ACUTE HEPATITIS [id number] 00:00:00 Test Item Value Reference Range Interpretation Comments HEPATITIS A IgM (test code = NON-REACTIVE 67168) HEPATITIS B CORE IgM (test code NON-REACTIVE = 4644) HEPATITIS B SURF AG (test code = NON-REACTIVE 2738) HEPATITIS C ANTIBODY (test code NON-REACTIVE = 4675) INTERPRETATION HEPATITIS A: (NOTE) (test code = 2552) INTERPRETATION HEPATITIS B: (NOTE) (test code = 88527) INTERPRETATION HEPATITIS C: (NOTE) (test code = 01183) CBC W/AUTO [id number] 00:00:00 Test Item Value Reference Range Interpretation [...] code = 1015) 283 K/UL CBC W/AUTO [id number] 00:00:00 Test Item Value Reference Range Interpretation [...] code = 1015) 283 K/UL COMPREHENSIVE METABOLIC [id number] 00:00:00 Test Item Value Reference Range Interpretation Comments GLUCOSE (test code = 2217) 101 MG/DL BUN (test code = 2208) 9 MG/DL CREATININE (test code = 2214) 0.59 MG/DL eGFR AMER. (test code 138 ML/MIN/1.73 = 96489) eGFR NON- AMER. (test 119 ML/MIN/1.73 code = 01125) CALC BUN/CREAT (test code = 15 RATIO [...] code = 2219) 35 U/L CBC W/AUTO [id number] 00:00:00 Test Item Value Reference Range Interpretation [...] code = 1015) 283 K/UL CBC W/AUTO [id number] 00:00:00 Test Item Value Reference Range Interpretation [...] code = 1015) 283 K/UL COMPREHENSIVE METABOLIC [id number] 00:00:00 Test Item Value Reference Range Interpretation Comments GLUCOSE (test code = 2217) 101 MG/DL BUN (test code = 2208) 9 MG/DL CREATININE (test code = 2214) 0.59 MG/DL eGFR AMER. (test code 138 ML/MIN/1.73 = 38106) eGFR NON- AMER. (test 119 ML/MIN/1.73 code = 12914) CALC BUN/CREAT (test code = 15 RATIO [...] code = 2219) 35 U/L COMPREHENSIVE METABOLIC [id number] 00:00:00 Test Item Value Reference Range Interpretation Comments GLUCOSE (test code = 2217) 101 MG/DL BUN (test code = 2208) 9 MG/DL CREATININE (test code = 2214) 0.59 MG/DL eGFR AMER. (test code 138 ML/MIN/1.73 = 26395) eGFR NON- AMER. (test 119 ML/MIN/1.73 code = 32023) CALC BUN/CREAT (test code = 15 RATIO [...] code = 2219) 35 U/L ACUTE HEPATITIS [id number] 00:00:00 Test Item Value Reference Range Interpretation Comments HEPATITIS A IgM (test code = NON-REACTIVE 39687) HEPATITIS B CORE IgM (test code NON-REACTIVE = 4644) HEPATITIS B SURF AG (test code = NON-REACTIVE 2739) HEPATITIS C ANTIBODY (test code NON-REACTIVE = 4675) INTERPRETATION HEPATITIS A: (NOTE) (test code = 2552) INTERPRETATION HEPATITIS B: (NOTE) (test code = 48202) INTERPRETATION HEPATITIS C: (NOTE) (test code = 84623) ACUTE HEPATITIS [id number] 00:00:00 Test Item Value Reference Range Interpretation Comments HEPATITIS A IgM (test code = NON-REACTIVE 32111) HEPATITIS B CORE IgM (test code NON-REACTIVE = 4644) HEPATITIS B SURF AG (test code = NON-REACTIVE 2739) HEPATITIS C ANTIBODY (test code NON-REACTIVE = 4675) INTERPRETATION HEPATITIS A: (NOTE) (test code = 2552) INTERPRETATION HEPATITIS B: (NOTE) (test code = 25698) INTERPRETATION HEPATITIS C: (NOTE) (test code = 35752) ACUTE HEPATITIS [id number] 00:00:00 Test Item Value Reference Range Interpretation Comments HEPATITIS A IgM (test code = NON-REACTIVE 71471) HEPATITIS B CORE IgM (test code NON-REACTIVE = 4644) HEPATITIS B SURF AG (test code = NON-REACTIVE 7369) HEPATITIS C ANTIBODY (test code NON-REACTIVE = 4684) INTERPRETATION HEPATITIS A: (NOTE) (test code = 2552) INTERPRETATION HEPATITIS B: (NOTE) (test code = 60816) INTERPRETATION HEPATITIS C: (NOTE) (test code = 47139) CBC W/AUTO [id number] 00:00:00 Test Item Value Reference Range Interpretation [...] code = 1015) 283 K/UL CBC W/AUTO [id number] 00:00:00 Test Item Value Reference Range Interpretation [...] code = 1015) 283 K/UL CBC W/AUTO [id number] 00:00:00 Test Item Value Reference Range Interpretation [...] code = 1015) 283 K/UL COMPREHENSIVE METABOLIC [id number] 00:00:00 Test Item Value Reference Range Interpretation Comments GLUCOSE (test code = 2217) 101 MG/DL BUN (test code = 2208) 9 MG/DL CREATININE (test code = 2214) 0.59 MG/DL eGFR AMER. (test code 138 ML/MIN/1.73 = 51033) eGFR NON- AMER. (test 119 ML/MIN/1.73 code = 04698) CALC BUN/CREAT (test code = 15 RATIO [...] code = 2219) 35 U/L COMPREHENSIVE METABOLIC [id number] 00:00:00 Test Item Value Reference Range Interpretation Comments GLUCOSE (test code = 2217) 101 MG/DL BUN (test code = 2208) 9 MG/DL CREATININE (test code = 2214) 0.59 MG/DL eGFR AMER. (test code 138 ML/MIN/1.73 = 87616) eGFR NON- AMER. (test 119 ML/MIN/1.73 code = 02907) CALC BUN/CREAT (test code = 15 RATIO [...] code = 2219) 35 U/L ACUTE HEPATITIS [id number] 00:00:00 Test Item Value Reference Range Interpretation Comments HEPATITIS A IgM (test code = NON-REACTIVE 04706) HEPATITIS B CORE IgM (test code NON-REACTIVE = 4644) HEPATITIS B SURF AG (test code = NON-REACTIVE 2739) HEPATITIS C ANTIBODY (test code NON-REACTIVE = 4675) INTERPRETATION HEPATITIS A: (NOTE) (test code = 2552) INTERPRETATION HEPATITIS B: (NOTE) (test code = 55075) INTERPRETATION HEPATITIS C: (NOTE) (test code = 70226) ACUTE HEPATITIS [id number] 00:00:00 Test Item Value Reference Range Interpretation Comments HEPATITIS A IgM (test code = NON-REACTIVE 26454) HEPATITIS B CORE IgM (test code NON-REACTIVE = 4644) HEPATITIS B SURF AG (test code = NON-REACTIVE 2739) HEPATITIS C ANTIBODY (test code NON-REACTIVE = 4675) INTERPRETATION HEPATITIS A: (NOTE) (test code = 2552) INTERPRETATION HEPATITIS B: (NOTE) (test code = 66597) INTERPRETATION HEPATITIS C: (NOTE) (test code = 00126) CBC W/AUTO [id number] 00:00:00 Test Item Value Reference Range Interpretation [...] code = 1015) 283 K/UL CBC W/AUTO [id number] 00:00:00 Test Item Value Reference Range Interpretation [...] code = 1015) 283 K/UL CBC W/AUTO [id number] 00:00:00 Test Item Value Reference Range Interpretation [...] code = 1015) 283 K/UL COMPREHENSIVE METABOLIC [id number] 00:00:00 Test Item Value Reference Range Interpretation Comments GLUCOSE (test code = 2217) 101 MG/DL BUN (test code = 2208) 9 MG/DL CREATININE (test code = 2214) 0.59 MG/DL eGFR AMER. (test code 138 ML/MIN/1.73 = 88417) eGFR NON- AMER. (test 119 ML/MIN/1.73 code = 53448) CALC BUN/CREAT (test code = 15 RATIO [...] code = 2219) 35 U/L COMPREHENSIVE METABOLIC [id number] 00:00:00 Test Item Value Reference Range Interpretation Comments GLUCOSE (test code = 2217) 101 MG/DL BUN (test code = 2208) 9 MG/DL CREATININE (test code = 2214) 0.59 MG/DL eGFR AMER. (test code 138 ML/MIN/1.73 = 29207) eGFR NON- AMER. (test 119 ML/MIN/1.73 code = 79262) CALC BUN/CREAT (test code = 15 RATIO [...] code = 2219) 35 U/L ACUTE HEPATITIS [id number] 00:00:00 Test Item Value Reference Range Interpretation Comments HEPATITIS A IgM (test code = NON-REACTIVE 88058) HEPATITIS B CORE IgM (test code NON-REACTIVE = 4644) HEPATITIS B SURF AG (test code = NON-REACTIVE 2739) HEPATITIS C ANTIBODY (test code NON-REACTIVE = 4675) INTERPRETATION HEPATITIS A: (NOTE) (test code = 2552) INTERPRETATION HEPATITIS B: (NOTE) (test code = 02013) INTERPRETATION HEPATITIS C: (NOTE) (test code = 89507) ACUTE HEPATITIS [id number] 00:00:00 Test Item Value Reference Range Interpretation Comments HEPATITIS A IgM (test code = NON-REACTIVE 08266) HEPATITIS B CORE IgM (test code NON-REACTIVE = 4644) HEPATITIS B SURF AG (test code = NON-REACTIVE 273) HEPATITIS C ANTIBODY (test code NON-REACTIVE = 4675) INTERPRETATION HEPATITIS A: (NOTE) (test code = 2552) INTERPRETATION HEPATITIS B: (NOTE) (test code = 91508) INTERPRETATION HEPATITIS C: (NOTE) (test code = 71011) CBC W/AUTO [id number] 00:00:00 Test Item Value Reference Range Interpretation [...] code = 1015) 283 K/UL CBC W/AUTO [id number] 00:00:00 Test Item Value Reference Range Interpretation [...] code = 1015) 283 K/UL CBC W/AUTO [id number] 00:00:00 Test Item Value Reference Range Interpretation [...] code = 1015) 283 K/UL COMPREHENSIVE METABOLIC [id number] 00:00:00 Test Item Value Reference Range Interpretation Comments GLUCOSE (test code = 2217) 101 MG/DL BUN (test code = 2208) 9 MG/DL CREATININE (test code = 2214) 0.59 MG/DL eGFR AMER. (test code 138 ML/MIN/1.73 = 01288) eGFR NON- AMER. (test 119 ML/MIN/1.73 code = 79003) CALC BUN/CREAT (test code = 15 RATIO [...] code = 2219) 35 U/L COMPREHENSIVE METABOLIC [id number] 00:00:00 Test Item Value Reference Range Interpretation Comments GLUCOSE (test code = 2217) 101 MG/DL BUN (test code = 2208) 9 MG/DL CREATININE (test code = 2214) 0.59 MG/DL eGFR AMER. (test code 138 ML/MIN/1.73 = 99302) eGFR NON- AMER. (test 119 ML/MIN/1.73 code = 62635) CALC BUN/CREAT (test code = 15 RATIO [...] code = 2219) 35 U/L ACUTE HEPATITIS [id number] 00:00:00 Test Item Value Reference Range Interpretation Comments HEPATITIS A IgM (test code = NON-REACTIVE 58061) HEPATITIS B CORE IgM (test code NON-REACTIVE = 4644) HEPATITIS B SURF AG (test code = NON-REACTIVE 2739) HEPATITIS C ANTIBODY (test code NON-REACTIVE = 4675) INTERPRETATION HEPATITIS A: (NOTE) (test code = 2552) INTERPRETATION HEPATITIS B: (NOTE) (test code = 27200) INTERPRETATION HEPATITIS C: (NOTE) (test code = 04257) ACUTE HEPATITIS [id number] 00:00:00 Test Item Value Reference Range Interpretation Comments HEPATITIS A IgM (test code = NON-REACTIVE 39722) HEPATITIS B CORE IgM (test code NON-REACTIVE = 4644) HEPATITIS B SURF AG (test code = NON-REACTIVE 2739) HEPATITIS C ANTIBODY (test code NON-REACTIVE = 4675) INTERPRETATION HEPATITIS A: (NOTE) (test code = 2552) INTERPRETATION HEPATITIS B: (NOTE) (test code = 91546) INTERPRETATION HEPATITIS C: (NOTE) (test code = 25985) CBC W/AUTO [id number] 00:00:00 Test Item Value Reference Range Interpretation [...] code = 1015) 283 K/UL CBC W/AUTO [id number] 00:00:00 Test Item Value Reference Range Interpretation [...] code = 1015) 283 K/UL CBC W/AUTO [id number] 00:00:00 Test Item Value Reference Range Interpretation [...] code = 1015) 283 K/UL COMPREHENSIVE METABOLIC [id number] 00:00:00 Test Item Value Reference Range Interpretation Comments GLUCOSE (test code = 2217) 101 MG/DL BUN (test code = 2208) 9 MG/DL CREATININE (test code = 2214) 0.59 MG/DL eGFR AMER. (test code 138 ML/MIN/1.73 = 59450) eGFR NON- AMER. (test 119 ML/MIN/1.73 code = 88033) CALC BUN/CREAT (test code = 15 RATIO [...] code = 2219) 35 U/L COMPREHENSIVE METABOLIC [id number] 00:00:00 Test Item Value Reference Range Interpretation Comments GLUCOSE (test code = 2217) 101 MG/DL BUN (test code = 2208) 9 MG/DL CREATININE (test code = 2214) 0.59 MG/DL eGFR AMER. (test code 138 ML/MIN/1.73 = 90206) eGFR NON- AMER. (test 119 ML/MIN/1.73 code = 35633) CALC BUN/CREAT (test code = 15 RATIO [...] code = 2219) 35 U/L ACUTE HEPATITIS [id number] 00:00:00 Test Item Value Reference Range Interpretation Comments HEPATITIS A IgM (test code = NON-REACTIVE 46778) HEPATITIS B CORE IgM (test code NON-REACTIVE = 4644) HEPATITIS B SURF AG (test code = NON-REACTIVE 2739) HEPATITIS C ANTIBODY (test code NON-REACTIVE = 4675) INTERPRETATION HEPATITIS A: (NOTE) (test code = 2552) INTERPRETATION HEPATITIS B: (NOTE) (test code = 38362) INTERPRETATION HEPATITIS C: (NOTE) (test code = 57164) ACUTE HEPATITIS [id number] 00:00:00 Test Item Value Reference Range Interpretation Comments HEPATITIS A IgM (test code = NON-REACTIVE 02180) HEPATITIS B CORE IgM (test code NON-REACTIVE = 4644) HEPATITIS B SURF AG (test code = NON-REACTIVE 2739) HEPATITIS C ANTIBODY (test code NON-REACTIVE = 4675) INTERPRETATION HEPATITIS A: (NOTE) (test code = 2552) INTERPRETATION HEPATITIS B: (NOTE) (test code = 71367) INTERPRETATION HEPATITIS C: (NOTE) (test code = 79808) COMPREHENSIVE METABOLIC [id number] 00:00:00 Test Item Value Reference Range Interpretation Comments GLUCOSE (test code = 2217) 88 MG/DL BUN (test code = 2208) 9 MG/DL CREATININE (test code = 2214) 0.71 MG/DL eGFR AMER. (test code 131 ML/MIN/1.73 = 32504) eGFR NON- AMER. (test 113 ML/MIN/1.73 code = 06966) CALC BUN/CREAT (test code = 13 RATIO [...] (test code = 2219) 45 U/L LIPID [id number] 00:00:00 Test Item Value Reference Range Interpretation Comments CHOLESTEROL (test code = 2210) 166 MG/DL TRIGLYCERIDES (test code = 2232) 85 MG/DL HDL CHOLESTEROL (test code = 2220) 61 MG/DL CALC LDL CHOL (test code = 2237) 88 MG/DL RISK RATIO LDL/HDL (test code = 1.44 RATIO 2238) CBC W/AUTO [id number] 00:00:00 Test Item Value Reference Range Interpretation [...] code = 1015) 278 K/UL CBC W/AUTO [id number] 00:00:00 Test Item Value Reference Range Interpretation [...] (test code = 1015) 278 K/UL HEMOGLOBIN [id number] 00:00:00 Test Item Value Reference Range Interpretation Comments HEMOGLOBIN A1c (test code = 33789) 5.4 % HEMOGLOBIN [id number] 00:00:00 Test Item Value Reference Range Interpretation Comments HEMOGLOBIN A1c (test code = 01412) 5.4 % [id number] 00:00:00 Test Item Value Reference Range Interpretation Comments TSH (test code = 2821) 2.1 UIU/ML [id number] 00:00:00 Test Item Value Reference Range Interpretation Comments TSH (test code = 2821) 2.1 UIU/ML COMPREHENSIVE METABOLIC [id number] 00:00:00 Test Item Value Reference Range Interpretation Comments GLUCOSE (test code = 2217) 88 MG/DL BUN (test code = 2208) 9 MG/DL CREATININE (test code = 2214) 0.71 MG/DL eGFR AMER. (test code 131 ML/MIN/1.73 = 14078) eGFR NON- AMER. (test 113 ML/MIN/1.73 code = 46228) CALC BUN/CREAT (test code = 13 RATIO [...] code = 2219) 45 U/L COMPREHENSIVE METABOLIC [id number] 00:00:00 Test Item Value Reference Range Interpretation Comments GLUCOSE (test code = 2217) 88 MG/DL BUN (test code = 2208) 9 MG/DL CREATININE (test code = 2214) 0.71 MG/DL eGFR AMER. (test code 131 ML/MIN/1.73 = 07755) eGFR NON- AMER. (test 113 ML/MIN/1.73 code = 54346) CALC BUN/CREAT (test code = 13 RATIO [...] (test code = 2219) 45 U/L LIPID [id number] 00:00:00 Test Item Value Reference Range Interpretation Comments CHOLESTEROL (test code = 2210) 166 MG/DL TRIGLYCERIDES (test code = 2232) 85 MG/DL HDL CHOLESTEROL (test code = 2220) 61 MG/DL CALC LDL CHOL (test code = 2237) 88 MG/DL RISK RATIO LDL/HDL (test code = 1.44 RATIO 2238) LIPID [id number] 00:00:00 Test Item Value Reference Range Interpretation Comments CHOLESTEROL (test code = 2210) 166 MG/DL TRIGLYCERIDES (test code = 2232) 85 MG/DL HDL CHOLESTEROL (test code = 2220) 61 MG/DL CALC LDL CHOL (test code = 2237) 88 MG/DL RISK RATIO LDL/HDL (test code = 1.44 RATIO 2238) CBC W/AUTO [id number] 00:00:00 Test Item Value Reference Range Interpretation [...] code = 1015) 278 K/UL CBC W/AUTO [id number] 00:00:00 Test Item Value Reference Range Interpretation [...] code = 1015) 278 K/UL CBC W/AUTO [id number] 00:00:00 Test Item Value Reference Range Interpretation [...] (test code = 1015) 278 K/UL HEMOGLOBIN [id number] 00:00:00 Test Item Value Reference Range Interpretation Comments HEMOGLOBIN A1c (test code = 31109) 5.4 % HEMOGLOBIN [id number] 00:00:00 Test Item Value Reference Range Interpretation Comments HEMOGLOBIN A1c (test code = 22883) 5.4 % HEMOGLOBIN [id number] 00:00:00 Test Item Value Reference Range Interpretation Comments HEMOGLOBIN A1c (test code = 12577) 5.4 % [id number] 00:00:00 Test Item Value Reference Range Interpretation Comments TSH (test code = 2821) 2.1 UIU/ML [id number] 00:00:00 Test Item Value Reference Range Interpretation Comments TSH (test code = 2821) 2.1 UIU/ML [id number] 00:00:00 Test Item Value Reference Range Interpretation Comments TSH (test code = 2821) 2.1 UIU/ML COMPREHENSIVE METABOLIC [id number] 00:00:00 Test Item Value Reference Range Interpretation Comments GLUCOSE (test code = 2217) 88 MG/DL BUN (test code = 2208) 9 MG/DL CREATININE (test code = 2214) 0.71 MG/DL eGFR AMER. (test code 131 ML/MIN/1.73 = 69574) eGFR NON- AMER. (test 113 ML/MIN/1.73 code = 14180) CALC BUN/CREAT (test code = 13 RATIO [...] code = 2219) 45 U/L COMPREHENSIVE METABOLIC [id number] 00:00:00 Test Item Value Reference Range Interpretation Comments GLUCOSE (test code = 2217) 88 MG/DL BUN (test code = 2208) 9 MG/DL CREATININE (test code = 2214) 0.71 MG/DL eGFR AMER. (test code 131 ML/MIN/1.73 = 30129) eGFR NON- AMER. (test 113 ML/MIN/1.73 code = 57714) CALC BUN/CREAT (test code = 13 RATIO [...] code = 2219) 45 U/L COMPREHENSIVE METABOLIC [id number] 00:00:00 Test Item Value Reference Range Interpretation Comments GLUCOSE (test code = 2217) 88 MG/DL BUN (test code = 2208) 9 MG/DL CREATININE (test code = 2214) 0.71 MG/DL eGFR AMER. (test code 131 ML/MIN/1.73 = 53073) eGFR NON- AMER. (test 113 ML/MIN/1.73 code = 14402) CALC BUN/CREAT (test code = 13 RATIO [...] (test code = 2219) 45 U/L LIPID [id number] 00:00:00 Test Item Value Reference Range Interpretation Comments CHOLESTEROL (test code = 2210) 166 MG/DL TRIGLYCERIDES (test code = 2232) 85 MG/DL HDL CHOLESTEROL (test code = 2220) 61 MG/DL CALC LDL CHOL (test code = 2237) 88 MG/DL RISK RATIO LDL/HDL (test code = 1.44 RATIO 2238) LIPID [id number] 00:00:00 Test Item Value Reference Range Interpretation Comments CHOLESTEROL (test code = 2210) 166 MG/DL TRIGLYCERIDES (test code = 2232) 85 MG/DL HDL CHOLESTEROL (test code = 2220) 61 MG/DL CALC LDL CHOL (test code = 2237) 88 MG/DL RISK RATIO LDL/HDL (test code = 1.44 RATIO 2238) LIPID [id number] 00:00:00 Test Item Value Reference Range Interpretation Comments CHOLESTEROL (test code = 2210) 166 MG/DL TRIGLYCERIDES (test code = 2232) 85 MG/DL HDL CHOLESTEROL (test code = 2220) 61 MG/DL CALC LDL CHOL (test code = 2237) 88 MG/DL RISK RATIO LDL/HDL (test code = 1.44 RATIO 2238) CBC W/AUTO [id number] 00:00:00 Test Item Value Reference Range Interpretation [...] code = 1015) 278 K/UL CBC W/AUTO [id number] 00:00:00 Test Item Value Reference Range Interpretation [...] code = 1015) 278 K/UL CBC W/AUTO [id number] 00:00:00 Test Item Value Reference Range Interpretation [...] (test code = 1015) 278 K/UL HEMOGLOBIN [id number] 00:00:00 Test Item Value Reference Range Interpretation Comments HEMOGLOBIN A1c (test code = 21143) 5.4 % HEMOGLOBIN [id number] 00:00:00 Test Item Value Reference Range Interpretation Comments HEMOGLOBIN A1c (test code = 50155) 5.4 % HEMOGLOBIN [id number] 00:00:00 Test Item Value Reference Range Interpretation Comments HEMOGLOBIN A1c (test code = 93804) 5.4 % [id number] 00:00:00 Test Item Value Reference Range Interpretation Comments TSH (test code = 2821) 2.1 UIU/ML [id number] 00:00:00 Test Item Value Reference Range Interpretation Comments TSH (test code = 2821) 2.1 UIU/ML [id number] 00:00:00 Test Item Value Reference Range Interpretation Comments TSH (test code = 2821) 2.1 UIU/ML CBC W/AUTO [id number] 00:00:00 Test Item Value Reference Range Interpretation [...] code = 1015) 278 K/UL CBC W/AUTO [id number] 00:00:00 Test Item Value Reference Range Interpretation [...] (test code = 1015) 278 K/UL HEMOGLOBIN [id number] 00:00:00 Test Item Value Reference Range Interpretation Comments HEMOGLOBIN A1c (test code = 34364) 5.4 % COMPREHENSIVE METABOLIC [id number] 00:00:00 Test Item Value Reference Range Interpretation Comments GLUCOSE (test code = 2217) 88 MG/DL BUN (test code = 2208) 9 MG/DL CREATININE (test code = 2214) 0.71 MG/DL eGFR AMER. (test code 131 ML/MIN/1.73 = 11900) eGFR NON- AMER. (test 113 ML/MIN/1.73 code = 44581) CALC BUN/CREAT (test code = 13 RATIO [...] (test code = 2219) 45 U/L HEMOGLOBIN [id number] 00:00:00 Test Item Value Reference Range Interpretation Comments HEMOGLOBIN A1c (test code = 69511) 5.4 % COMPREHENSIVE METABOLIC [id number] 00:00:00 Test Item Value Reference Range Interpretation Comments GLUCOSE (test code = 2217) 88 MG/DL BUN (test code = 2208) 9 MG/DL CREATININE (test code = 2214) 0.71 MG/DL eGFR AMER. (test code 131 ML/MIN/1.73 = 36560) eGFR NON- AMER. (test 113 ML/MIN/1.73 code = 24522) CALC BUN/CREAT (test code = 13 RATIO [...] ALT (test code = 2219) 45 U/L [id number] 00:00:00 Test Item Value Reference Range Interpretation Comments TSH (test code = 2821) 2.1 UIU/ML LIPID [id number] 00:00:00 Test Item Value Reference Range Interpretation Comments CHOLESTEROL (test code = 2210) 166 MG/DL TRIGLYCERIDES (test code = 2232) 85 MG/DL HDL CHOLESTEROL (test code = 2220) 61 MG/DL CALC LDL CHOL (test code = 2237) 88 MG/DL RISK RATIO LDL/HDL (test code = 1.44 RATIO 2238) LIPID [id number] 00:00:00 Test Item Value Reference Range Interpretation Comments CHOLESTEROL (test code = 2210) 166 MG/DL TRIGLYCERIDES (test code = 2232) 85 MG/DL HDL CHOLESTEROL (test code = 2220) 61 MG/DL CALC LDL CHOL (test code = 2237) 88 MG/DL RISK RATIO LDL/HDL (test code = 1.44 RATIO 2238) [id number] 00:00:00 Test Item Value Reference Range Interpretation Comments TSH (test code = 2821) 2.1 UIU/ML CBC W/AUTO [id number] 00:00:00 Test Item Value Reference Range Interpretation [...] code = 1015) 278 K/UL CBC W/AUTO [id number] 00:00:00 Test Item Value Reference Range Interpretation [...] code = 1015) 278 K/UL CBC W/AUTO [id number] 00:00:00 Test Item Value Reference Range Interpretation [...] (test code = 1015) 278 K/UL HEMOGLOBIN [id number] 00:00:00 Test Item Value Reference Range Interpretation Comments HEMOGLOBIN A1c (test code = 95816) 5.4 % HEMOGLOBIN [id number] 00:00:00 Test Item Value Reference Range Interpretation Comments HEMOGLOBIN A1c (test code = 88960) 5.4 % HEMOGLOBIN [id number] 00:00:00 Test Item Value Reference Range Interpretation Comments HEMOGLOBIN A1c (test code = 70138) 5.4 % [id number] 00:00:00 Test Item Value Reference Range Interpretation Comments TSH (test code = 2821) 2.1 UIU/ML [id number] 00:00:00 Test Item Value Reference Range Interpretation Comments TSH (test code = 2821) 2.1 UIU/ML [id number] 00:00:00 Test Item Value Reference Range Interpretation Comments TSH (test code = 2821) 2.1 UIU/ML COMPREHENSIVE METABOLIC [id number] 00:00:00 Test Item Value Reference Range Interpretation Comments GLUCOSE (test code = 2217) 88 MG/DL BUN (test code = 2208) 9 MG/DL CREATININE (test code = 2214) 0.71 MG/DL eGFR AMER. (test code 131 ML/MIN/1.73 = 29417) eGFR NON- AMER. (test 113 ML/MIN/1.73 code = 87888) CALC BUN/CREAT (test code = 13 RATIO [...] code = 2219) 45 U/L COMPREHENSIVE METABOLIC [id number] 00:00:00 Test Item Value Reference Range Interpretation Comments GLUCOSE (test code = 2217) 88 MG/DL BUN (test code = 2208) 9 MG/DL CREATININE (test code = 2214) 0.71 MG/DL eGFR AMER. (test code 131 ML/MIN/1.73 = 92395) eGFR NON- AMER. (test 113 ML/MIN/1.73 code = 33204) CALC BUN/CREAT (test code = 13 RATIO [...] (test code = 2219) 45 U/L LIPID [id number] 00:00:00 Test Item Value Reference Range Interpretation Comments CHOLESTEROL (test code = 2210) 166 MG/DL TRIGLYCERIDES (test code = 2232) 85 MG/DL HDL CHOLESTEROL (test code = 2220) 61 MG/DL CALC LDL CHOL (test code = 2237) 88 MG/DL RISK RATIO LDL/HDL (test code = 1.44 RATIO 2238) LIPID [id number] 00:00:00 Test Item Value Reference Range Interpretation Comments CHOLESTEROL (test code = 2210) 166 MG/DL TRIGLYCERIDES (test code = 2232) 85 MG/DL HDL CHOLESTEROL (test code = 2220) 61 MG/DL CALC LDL CHOL (test code = 2237) 88 MG/DL RISK RATIO LDL/HDL (test code = 1.44 RATIO 2238) CBC W/AUTO [id number] 00:00:00 Test Item Value Reference Range Interpretation [...] code = 1015) 278 K/UL CBC W/AUTO [id number] 00:00:00 Test Item Value Reference Range Interpretation [...] code = 1015) 278 K/UL CBC W/AUTO [id number] 00:00:00 Test Item Value Reference Range Interpretation [...] (test code = 1015) 278 K/UL HEMOGLOBIN [id number] 00:00:00 Test Item Value Reference Range Interpretation Comments HEMOGLOBIN A1c (test code = 45525) 5.4 % HEMOGLOBIN [id number] 00:00:00 Test Item Value Reference Range Interpretation Comments HEMOGLOBIN A1c (test code = 26949) 5.4 % HEMOGLOBIN [id number] 00:00:00 Test Item Value Reference Range Interpretation Comments HEMOGLOBIN A1c (test code = 90655) 5.4 % [id number] 00:00:00 Test Item Value Reference Range Interpretation Comments TSH (test code = 2821) 2.1 UIU/ML [id number] 00:00:00 Test Item Value Reference Range Interpretation Comments TSH (test code = 2821) 2.1 UIU/ML [id number] 00:00:00 Test Item Value Reference Range Interpretation Comments TSH (test code = 2821) 2.1 UIU/ML COMPREHENSIVE METABOLIC [id number] 00:00:00 Test Item Value Reference Range Interpretation Comments GLUCOSE (test code = 2217) 88 MG/DL BUN (test code = 2208) 9 MG/DL CREATININE (test code = 2214) 0.71 MG/DL eGFR AMER. (test code 131 ML/MIN/1.73 = 72639) eGFR NON- AMER. (test 113 ML/MIN/1.73 code = 76013) CALC BUN/CREAT (test code = 13 RATIO [...] code = 2219) 45 U/L COMPREHENSIVE METABOLIC [id number] 00:00:00 Test Item Value Reference Range Interpretation Comments GLUCOSE (test code = 2217) 88 MG/DL BUN (test code = 2208) 9 MG/DL CREATININE (test code = 2214) 0.71 MG/DL eGFR AMER. (test code 131 ML/MIN/1.73 = 53629) eGFR NON- AMER. (test 113 ML/MIN/1.73 code = 98626) CALC BUN/CREAT (test code = 13 RATIO 2235) SODIUM (test code = 2231) 144 MEQ/L POTASSIUM (test code = 2228) 4.3 MEQ/L CHLORIDE (test code = 2215) 103 MEQ/L CARBON DIOXIDE (test code = 27 MEQ/L 2206) CALCIUM (test code = 2209) 9.7 MG/DL PROTEIN, TOTAL (test code = 8.0 G/DL 9) ALBUMIN (test code = 2201) 4.4 G/DL CALC GLOBULIN (test code = 3.6 G/DL 2240) CALC A/G RATIO (test code = 1.2 RATIO 2234) BILIRUBIN, TOTAL (test code = 0.4 MG/DL 2207) ALKALINE PHOSPHATASE (test 79 U/L code = 2204) AST (test code = 2218) 36 U/L ALT (test code = 2219) 45 U/L LIPID [id number] 00:00:00 Test Item Value Reference Range Interpretation Comments CHOLESTEROL (test code = 2210) 166 MG/DL TRIGLYCERIDES (test code = 2232) 85 MG/DL HDL CHOLESTEROL (test code = 2220) 61 MG/DL CALC LDL CHOL (test code = 2237) 88 MG/DL RISK RATIO LDL/HDL (test code = 1.44 RATIO 2238) LIPID [id number] 00:00:00 Test Item Value Reference Range Interpretation Comments CHOLESTEROL (test code = 2210) 166 MG/DL TRIGLYCERIDES (test code = 2232) 85 MG/DL HDL CHOLESTEROL (test code = 2220) 61 MG/DL CALC LDL CHOL (test code = 2237) 88 MG/DL RISK RATIO LDL/HDL (test code = 1.44 RATIO 2238) CBC W/AUTO [id number] 00:00:00 Test Item Value Reference Range Interpretation [...] code = 1015) 278 K/UL CBC W/AUTO [id number] 00:00:00 Test Item Value Reference Range Interpretation [...] code = 1015) 278 K/UL CBC W/AUTO [id number] 00:00:00 Test Item Value Reference Range Interpretation [...] (test code = 1015) 278 K/UL HEMOGLOBIN [id number] 00:00:00 Test Item Value Reference Range Interpretation Comments HEMOGLOBIN A1c (test code = 47220) 5.4 % HEMOGLOBIN [id number] 00:00:00 Test Item Value Reference Range Interpretation Comments HEMOGLOBIN A1c (test code = 92994) 5.4 % HEMOGLOBIN [id number] 00:00:00 Test Item Value Reference Range Interpretation Comments HEMOGLOBIN A1c (test code = 22252) 5.4 % [id number] 00:00:00 Test Item Value Reference Range Interpretation Comments TSH (test code = 2821) 2.1 UIU/ML [id number] 00:00:00 Test Item Value Reference Range Interpretation Comments TSH (test code = 2821) 2.1 UIU/ML [id number] 00:00:00 Test Item Value Reference Range Interpretation Comments TSH (test code = 2821) 2.1 UIU/ML COMPREHENSIVE METABOLIC [id number] 00:00:00 Test Item Value Reference Range Interpretation Comments GLUCOSE (test code = 2217) 88 MG/DL BUN (test code = 2208) 9 MG/DL CREATININE (test code = 2214) 0.71 MG/DL eGFR AMER. (test code 131 ML/MIN/1.73 = 45975) eGFR NON- AMER. (test 113 ML/MIN/1.73 code = 98084) CALC BUN/CREAT (test code = 13 RATIO [...] code = 2219) 45 U/L COMPREHENSIVE METABOLIC [id number] 00:00:00 Test Item Value Reference Range Interpretation Comments GLUCOSE (test code = 2217) 88 MG/DL BUN (test code = 2208) 9 MG/DL CREATININE (test code = 2214) 0.71 MG/DL eGFR AMER. (test code 131 ML/MIN/1.73 = 38413) eGFR NON- AMER. (test 113 ML/MIN/1.73 code = 92686) CALC BUN/CREAT (test code = 13 RATIO [...] (test code = 2219) 45 U/L LIPID [id number] 00:00:00 Test Item Value Reference Range Interpretation Comments CHOLESTEROL (test code = 2210) 166 MG/DL TRIGLYCERIDES (test code = 2232) 85 MG/DL HDL CHOLESTEROL (test code = 2220) 61 MG/DL CALC LDL CHOL (test code = 2237) 88 MG/DL RISK RATIO LDL/HDL (test code = 1.44 RATIO 2238) LIPID [id number] 00:00:00 Test Item Value Reference Range Interpretation Comments CHOLESTEROL (test code = 2210) 166 MG/DL TRIGLYCERIDES (test code = 2232) 85 MG/DL HDL CHOLESTEROL (test code = 2220) 61 MG/DL CALC LDL CHOL (test code = 2237) 88 MG/DL RISK RATIO LDL/HDL (test code = 1.44 RATIO 2238) CBC W/AUTO [id number] 00:00:00 Test Item Value Reference Range Interpretation [...] code = 1015) 278 K/UL CBC W/AUTO [id number] 00:00:00 Test Item Value Reference Range Interpretation [...] code = 1015) 278 K/UL CBC W/AUTO [id number] 00:00:00 Test Item Value Reference Range Interpretation [...] (test code = 1015) 278 K/UL HEMOGLOBIN [id number] 00:00:00 Test Item Value Reference Range Interpretation Comments HEMOGLOBIN A1c (test code = 03173) 5.4 % HEMOGLOBIN [id number] 00:00:00 Test Item Value Reference Range Interpretation Comments HEMOGLOBIN A1c (test code = 51470) 5.4 % HEMOGLOBIN [id number] 00:00:00 Test Item Value Reference Range Interpretation Comments HEMOGLOBIN A1c (test code = 38601) 5.4 % [id number] 00:00:00 Test Item Value Reference Range Interpretation Comments TSH (test code = 2821) 2.1 UIU/ML [id number] 00:00:00 Test Item Value Reference Range Interpretation Comments TSH (test code = 2821) 2.1 UIU/ML [id number] 00:00:00 Test Item Value Reference Range Interpretation Comments TSH (test code = 2821) 2.1 UIU/ML
--- NOTE | 2023-02-08 17:38 | RAD REPORT ---
EXAM DESCRIPTION: US - Extrem Venous W Compress Steven - 02/08/2023 4:34 pm CLINICAL HISTORY: Pain, swelling COMPARISON: 08/15/2022. TECHNIQUE: Real-time sonographic evaluation of the bilateral lower extremity deep venous systems was performed. FINDINGS: Study somewhat limited by patient's limited mobility. Normal compressibility, flow augment ation, phasic flow and spontaneous flow is identified in both the left and right lower extremity deep venous systems. No intraluminal filling defects seen. IMPRESSION: No evidence of DVT in either lower extremity.
--- NOTE | 2023-02-08 17:54 | RAD REPORT ---
EXAM DESCRIPTION: RADChest Single View02/08/2023 4:36 pm CLINICAL HISTORY: leg swelling COMPARISON: Chest Single View dated 01/22/2023; Chest Single View dated 01/20/2023; Chest Single View dated 01/18/2023; Chest Single View dated 08/31/2021 TECHNIQUE: Portable AP view of the chest. FINDINGS: The lungs are clear. No pneumothorax or effusion. The cardiomediastinal contours are unre markable. IMPRESSION: No acute cardiopulmonary process.
[2023-02-08 17:59] LABS: Absolute Lymphocytes (CBC) 1.8 K/uL (0.7-4.9); Hematocrit 35.8 % (36.0-45.0); Lymphocytes % 25.6 % (15.3-44.8); MCV 90.6 fL (80-100); MPV 7.6 fL (7.6-11.3); Platelets 320 thou/uL (152-406); RBC Red Blood Cell Count 3.95 M/uL (3.86-4.86)
[2023-02-08 18:26] LABS: Albumin 2.9 g/dL (3.4-5.0); Bilirubin Direct 0.2 mg/dL (0-0.2); Bilirubin Indirect, Calculated 0.2 mg/dL (0.2-0.8); Bilirubin Total 0.4 mg/dL (0.2-1.0); Magnesium 2.2 mg/dL (1.6-2.4); Potassium 3.2 mEq/L (3.5-5.1); Protein, Total 8.2 g/dL (6.4-8.2); Troponin High Sensitivity 3.1 pg/mL (<58.9)
[2023-02-08] MEDS ORDERED: KETOROLAC 30 MG/ML INJ ONE (18:28)
[2023-02-08 18:48] LABS: SARS-COV-2 RT PCR NEGATIVE (NEGATIVE)
[2023-02-08] MEDS ORDERED: FUROSEMIDE 20 MG TABLET ONE (19:46)
[2023-02-08] MEDS ORDERED: DOXYCYCLINE 100 MG CAP PO ONE (19:47)
[2023-02-08] MEDS ORDERED: NA CHLORIDE 0.9% 100 ML ONE (19:47)
[2023-02-08] MEDS ORDERED: FENTANYL CITR 100 MCG/2 ML ONE (19:47)
[2023-02-08] MEDS ORDERED: CEFTRIAXONE 1000 MG/VIAL ONE (19:47)
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
[2023-02-08] MEDS ORDERED: POTASSIUM 25 MEQ EFFERV TAB ONE (20:12)
[2023-02-08 21:02] VITALS: TEMP 98.4; O2SAT 97
[2023-02-08 21:14] VITALS: BP 103/64
--- NOTE | 2023-02-12 15:32 | EKG ---
Test Date: 2023-02-08 Test Time: 17:55:23 Weigh Boss: HB MEASUREMENT RESULTS: Intervals: Rate: 89 [place]: 180 QRSD: 94 QT: 378 QTc: 459 [place]: P: 40 [place]: 180 QRS: 47 T: 25 INTERPRETIVE STATEMENTS: Normal sinus rhythm Normal ECG Compared to ECG 01/18/2023 13:59:30 No significant changes Electronically Signed On 02-12-23 15:17:03 MUSIC LIBRARY ASSISTANT by Horacio Rubi
== END 2023-02-08 20:32 | disposition home or self-care (01) ==
LOC: ER 14:24
DX: L03.116 Cellulitis of left lower limb (principal); L03.115 Cellulitis of right lower limb; E87.6 Hypokalemia
CPT/HCPCS: 0240U; 36415; 71045; 80048; 80076; 83735; 83880; 84484; 85025; 93005; 93970; 96365; 96375; 99284; J0696; J3010